=== PATIENT | female | born 1940 | race Caucasian/White ===

== ENCOUNTER 2016-08-20 15:04 | Outpatient (RCR) | payer MEDICARE ==
--- OUTSIDE RECORDS SUMMARY | 2016-05-27 14:40 | XMS REPORT | Continuity of Care Document ---
Author Author [facility] Organization [facility] Address Unknown Phone Unavailable Care Team Providers Care Financial Services Manager Name Role Phone RITA WALTON MD PCP Insurance Providers Payer Name Policy Number Subscriber Name Relationship Wps Medicare [id number] Gracia Dickerson 18 Self / Same As Patient Medicaid [place] [id number] Gracia Dickerson 16 Self / Same As Patient Advance Directives Directive Response Recorded Date/Time Advance Directives No 10/17/15 2:02pm Health Care Power of Senior Mortgage Loan Processor No 10/17/15 2:02pm Organ Donor No 10/17/15 2:02pm Problems Active Problems Medical Problem Onset Date Status CHF (congestive heart failure) Unknown Acute CHF (congestive heart failure) Unknown Acute CRF (chronic renal failure) Unknown Acute Hypoglycemia associated with diabetes Unknown Acute Urinary tract infection Unknown Acute Medications Current Home Medications Medication Dose Units Route Directions Days/Qty Instructions Start Date Darbepoetin Ramos In Polysorbat 40 Mcg/1 Ml 40 Mcg Injection Every 2 Weeks 06/29/14 Ferrous Sulfate 325 Mg 325 Mg Oral Bedtime 06/29/14 Glimepiride 4 Mg 4 Mg Oral Daily 06/29/14 Insulin Glargine 300 Unit/3 Ml 20 Units Sub-Q Bedtime 06/29/14 Multivitamins 1 Tab 1 Tab Oral Daily 06/29/14 Cholecalciferol (Vitamin D3) 2,000 Unit 2,000 Unit Oral Bedtime 07/31 Calcium Carbonate 200 Mg 200-400 Mg Oral Daily as needed for Stomach Upset TAKES 1-2 TABLETS 06/29/14 Sodium Bicarbonate 325 Mg 325 Mg Oral Twice A Day as needed for Indigestion 06/29/14 Cyanocobalamin 1,000 Mcg 1,000 Mcg Oral Bedtime 11/22/14 Pyridoxine Hcl 100 Mg 100 Mg Oral Bedtime 11/22/14 Insulin Aspart 100 Unit/1 Ml 8 Units Sub-Q Am & Noon 11/22/14 Lovastatin (Mevacor) 40 Mg 40 Mg Oral Bedtime 11/22/14 Levothyroxine Sodium 150 Mcg 150 Mcg Oral Daily 11/22/14 Clopidogrel Bisulfate 75 Mg 75 Mg Oral Daily 30 11/24/14 Aspirin 81 Mg 81 Mg Oral Daily 30 11/24/14 Carvedilol 3.125 Mg 3.125 Mg Oral Twice A Day 60 11/24/14 Ciprofloxacin Hcl 500 Mg 500 Mg Oral Twice A Day 10 10/17/15 Past Home Medications Medication Directions Ordered Status Carvedilol (Coreg) 3.125 Mg Tablet, 3.125 Mg Oral Twice A Day 06/29/14 Discontinued Enalapril Maleate 2.5 Mg Tablet, 2.5 Mg Oral Daily 06/29/14 Discontinued Atenolol 50 Mg Tablet, 50 Mg Oral Daily 06/29/14 Discontinued Hum Insulin Nph/Reg Insulin Hm 100 Unit/1 Ml Insuln.pen, 5 Unit Sub-Q Twice Daily Before Meals 06/29/14 Discontinued Levothyroxine Sodium 100 Mcg Tablet, 100 Mcg Oral Bedtime 06/29/14 Discontinued Lovastatin (Mevacor) 20 Mg Tablet, 20 Mg Oral Bedtime 06/29/14 Discontinued Amlodipine Besylate (Norvasc 2.5 Mg) 2.5 Mg Tablet, 2.5 Mg Oral Twice A Day 06/29/14 Discontinued [Vitamin B12] , 1 Tab Oral Bedtime 06/29/14 Discontinued [Vitamin B6] , 1 Tab Oral Bedtime 06/29/14 Discontinued [Sodium Bicarbonate] , 250 Mg Oral Twice A Day 06/29/14 Discontinued Social History Social History Problem Response Recorded Date/Time Alcohol Use Denies Use 10/17/2015 2:02pm Recreational Drug Use No 10/17/2015 2:02pm Recent Foreign Travel N [place] 12/18/2015 1:08pm Sexually Transmitted Disease No 10/17/2015 2:02pm Hospital Discharge Instructions No hospital discharge instructions. Plan of Care Prescriptions See Medication Section Functional Status No functional status results. Allergies, Adverse Reactions, Alerts No known allergies. Immunizations No immunization records. Vital Signs No known vital signs results. Results Laboratory Results Test Name Result Units Flags Reference Collection Date/Time Result Date/ Time Comments White Blood Count 5.7 10^3/uL 4.3-11.0 03/04/2016 11:03/04/2016 11 :11am Red Blood Count 4.05 10^6/uL L 4.35-5.85 03/04/2016 11:03/04/2016 11 :11am Hemoglobin 11.6 G/DL 11.5-16.0 03/04/2016 11:03/04/2016 11:11am Hematocrit 35 % 35-52 03/04/2016 11:03/04/2016 11:11am Mean Corpuscular Volume 87 FL 80-99 03/04/2016 11:03/04/2016 11: 11am Mean Corpuscular Hemoglobin 29 PG 25-34 03/04/2016 11:03/04/2016 11:11am Mean Corpuscular Hemoglobin Concent 33 G/DL 32-36 03/04/2016 11: 11:11am Red Cell Distribution Width 14.6 % H 10.0-14.5 03/04/2016 11:2015 11:11am Platelet Count 219 10^3/uL 130-400 03/04/2016 11:03/04/2016 11: 11am Mean Platelet Volume 10.1 FL 7.4-10.4 03/04/2016 11:03/04/2016 11: 11am Neutrophils (%) (Auto) 65 % 42-75 03/04/2016 11:03/04/2016 11: 11am Lymphocytes (%) (Auto) 21 % 12-44 03/04/2016 11:03/04/2016 11: 11am Monocytes (%) (Auto) 11 % 0-12 03/04/2016 11:03/04/2016 11:11am Eosinophils (%) (Auto) 2 % 0-10 03/04/2016 11:03/04/2016 11:11am Basophils (%) (Auto) 1 % 0-10 03/04/2016 11:03/04/2016 11:11am Neutrophils # (Auto) 3.7 X 10^3 1.8-7.8 03/04/2016 11:03/04/2016 11:11am Lymphocytes # (Auto) 1.2 X 10^3 1.0-4.0 03/04/2016 11:03/04/2016 11:11am Monocytes # (Auto) 0.6 X 10^3 0.0-1.0 03/04/2016 11:03/04/2016 11: 11am Eosinophils # (Auto) 0.1 10^3/uL 0.0-0.3 03/04/2016 11:03/04/2016 11:11am Basophils # (Auto) 0.1 10^3/uL 0.0-0.1 03/04/2016 11:03/04/2016 11 :11am Sodium Level 134 MMOL/L L 135-145 01/29/2016 1:03pm 01/29/2016 1:48pm Potassium Level 4.9 MMOL/L 3.6-5.0 01/29/2016 1:03pm 01/29/2016 1:48pm Chloride Level 106 MMOL/L 98-107 01/29/2016 1:03pm 01/29/2016 1:48pm Carbon Dioxide Level 17 MMOL/L L 21-32 01/29/2016 1:03pm 01/29/2016 1: 48pm Anion Gap 11 MMOL/L 5-14 01/29/2016 1:03pm 01/29/2016 1:48pm Blood Urea Nitrogen 29 MG/DL H 7-18 01/29/2016 1:03pm 01/29/2016 1:48pm Creatinine 2.21 MG/DL H 0.60-1.30 01/29/2016 1:03pm 01/29/2016 1:48pm BUN/Creatinine Ratio 01/29/2016 1:03pm 01/29/2016 1:48pm Estimat Glomerular Filtration Rate 22 01/29/2016 1:03pm 01/29/2016 1:48pm GFR INTERPRETIVE DATA UNITS FOR ESTIMATED GFR (eGFR): mL/min/1.73 M2 REFERENCE RANGE FOR ESTIMATED GFR (eGFR) eGFR NORMAL eGFR >60 MODERATELY DECREASED eGFR 30-59 SEVERLY DECREASED eGFR 15-29 KIDNEY FAILURE <15 (OR DIALYSIS) Glucose Level 449 MG/DL CH 70-105 01/29/2016 1:03pm 01/29/2016 1:48pm RESULTS CALLED TO [facility]UM[facility] AT 1348. RESULTS READ BACK: YES. Calcium Level 8.6 MG/DL 8.5-10.1 01/29/2016 1:03pm 01/29/2016 1:48pm Total Bilirubin 0.4 MG/DL 0.1-1.0 01/29/2016 1:03pm 01/29/2016 1:48pm Alkaline Phosphatase 108 U/L 40-136 01/29/2016 1:03pm 01/29/2016 1: 48pm Aspartate Amino Transf (AST/SGOT) 12 U/L 5-34 01/29/2016 1:03pm 2015 1:48pm Alanine Aminotransferase (ALT/SGPT) < 6 U/L 0-55 01/29/2016 1:03pm 1:48pm Total Protein 6.8 G/DL 6.4-8.2 01/29/2016 1:03pm 01/29/2016 1:48pm Albumin 3.8 G/DL 3.2-4.5 01/29/2016 1:03pm 01/29/2016 1:48pm Thyroid Stimulating Hormone (TSH) 17.69 UIU/ML H 0.35-4.94 01/29/2016 1: 03pm 01/29/2016 2:06pm Procedures Procedure Status Date Provider(s) Color Doppler echocardiography Active 03/05/16 LONNIE YATES Encounters Encounter Location Arrival/Admit Date Discharge/Depart Date Attending Provider Discharged Recurring [facility] 03/05/16 8:43am 11:59pm MARIO HODGE MD Registered Clinic [facility] 03/05/16 7:41am LONNIE DUDLEY
[2016-05-27 15:06] LABS: BASOPHILS # (AUTO) 0.1 10^3/uL (0.0-0.1); BASOPHILS % (AUTO) 1 % (0-10); EOSINOPHILS # (AUTO) 0.1 10^3/uL (0.0-0.3); EOSINOPHILS % (AUTO) 3 % (0-10); LYMPHOCYTES # (AUTO) 1.2 X 10^3 (1.0-4.0); LYMPHOCYTES % (AUTO) 27 % (12-44); MEAN CORPUSCULAR HGB CONC 32 G/DL (32-36); MEAN CORPUSCULAR VOLUME 90 FL (80-99); MEAN PLATELET VOLUME 10.2 FL (7.4-10.4); MONOCYTES # (AUTO) 0.7 X 10^3 (0.0-1.0); MONOCYTES % (AUTO) 15 % (0-12); NEUTROPHILS # (AUTO) 2.3 X 10^3 (1.8-7.8); NEUTROPHILS % (AUTO) 53 % (42-75); PLATELET COUNT 171 10^3/uL (130-400); RED BLOOD COUNT 3.09 10^6/uL (4.35-5.85); RED CELL DISTRIBUTION WIDTH 15.6 % (10.0-14.5); WHITE BLOOD COUNT 4.3 10^3/uL (4.3-11.0)
[2016-05-27 15:16] LABS: MEAN CORPUSCULAR HEMOGLOBIN 28 PG (25-34)
[2016-05-27 15:54] LABS: ALBUMIN 3.7 G/DL (3.2-4.5); BILIRUBIN,TOTAL 0.3 MG/DL (0.1-1.0); CALCIUM 8.9 MG/DL (8.5-10.1); CREATININE SERUM 2.36 MG/DL (0.60-1.30); POTASSIUM 4.9 MMOL/L (3.6-5.0); TOTAL PROTEIN 6.9 G/DL (6.4-8.2)
[2016-05-27 16:15] LABS: THYROID STIMULATING HORMONE 0.21 UIU/ML (0.35-4.94)
[2016-06-10 16:12] LABS: BASOPHILS % (AUTO) 1 % (0-10); EOSINOPHILS # (AUTO) 0.2 10^3/uL (0.0-0.3); EOSINOPHILS % (AUTO) 5 % (0-10); LYMPHOCYTES # (AUTO) 1.1 X 10^3 (1.0-4.0); LYMPHOCYTES % (AUTO) 25 % (12-44); MEAN CORPUSCULAR HEMOGLOBIN 28 PG (25-34); MEAN CORPUSCULAR HGB CONC 32 G/DL (32-36); MEAN CORPUSCULAR VOLUME 89 FL (80-99); MEAN PLATELET VOLUME 9.8 FL (7.4-10.4); MONOCYTES # (AUTO) 0.5 X 10^3 (0.0-1.0); MONOCYTES % (AUTO) 12 % (0-12); NEUTROPHILS # (AUTO) 2.5 X 10^3 (1.8-7.8); NEUTROPHILS % (AUTO) 57 % (42-75); PLATELET COUNT 218 10^3/uL (130-400); RED BLOOD COUNT 3.17 10^6/uL (4.35-5.85); WHITE BLOOD COUNT 4.3 10^3/uL (4.3-11.0)
[2016-06-25 15:30] LABS: BASOPHILS # (AUTO) 0.1 10^3/uL (0.0-0.1); BASOPHILS % (AUTO) 2 % (0-10); EOSINOPHILS # (AUTO) 0.2 10^3/uL (0.0-0.3); EOSINOPHILS % (AUTO) 4 % (0-10); LYMPHOCYTES # (AUTO) 1.3 X 10^3 (1.0-4.0); LYMPHOCYTES % (AUTO) 28 % (12-44); MEAN CORPUSCULAR HEMOGLOBIN 28 PG (25-34); MEAN CORPUSCULAR HGB CONC 31 G/DL (32-36); MEAN CORPUSCULAR VOLUME 90 FL (80-99); MONOCYTES # (AUTO) 0.7 X 10^3 (0.0-1.0); MONOCYTES % (AUTO) 15 % (0-12); NEUTROPHILS # (AUTO) 2.5 X 10^3 (1.8-7.8); NEUTROPHILS % (AUTO) 52 % (42-75); PLATELET COUNT 158 10^3/uL (130-400); RED BLOOD COUNT 2.93 10^6/uL (4.35-5.85); RED CELL DISTRIBUTION WIDTH 14.5 % (10.0-14.5); WHITE BLOOD COUNT 4.8 10^3/uL (4.3-11.0)
[2016-06-25 16:07] LABS: ALBUMIN 3.7 G/DL (3.2-4.5); BILIRUBIN,TOTAL 0.3 MG/DL (0.1-1.0); CALCIUM 9.1 MG/DL (8.5-10.1); CREATININE SERUM 2.14 MG/DL (0.60-1.30)
[2016-06-25 16:14] LABS: POTASSIUM 6.8 MMOL/L (3.6-5.0)
[2016-06-25 16:26] LABS: THYROID STIMULATING HORMONE 0.06 UIU/ML (0.35-4.94)
[2016-06-25 17:06] LABS: %SAT TOTAL IRON BINDING CAPIC 12 % (15-50); TIBC 228 ug/dL (280-380)
[2016-06-26 08:00] LABS: FERRITIN 289 ng/mL (15-150); UIBC 200 ug/dL (55-450)
[2016-07-09 15:59] LABS: BASOPHILS % (AUTO) 1 % (0-10); EOSINOPHILS # (AUTO) 0.2 10^3/uL (0.0-0.3); EOSINOPHILS % (AUTO) 3 % (0-10); LYMPHOCYTES # (AUTO) 1.1 X 10^3 (1.0-4.0); LYMPHOCYTES % (AUTO) 26 % (12-44); MEAN CORPUSCULAR HEMOGLOBIN 28 PG (25-34); MEAN CORPUSCULAR HGB CONC 31 G/DL (32-36); MEAN CORPUSCULAR VOLUME 89 FL (80-99); MONOCYTES # (AUTO) 0.5 X 10^3 (0.0-1.0); MONOCYTES % (AUTO) 11 % (0-12); NEUTROPHILS # (AUTO) 2.6 X 10^3 (1.8-7.8); NEUTROPHILS % (AUTO) 59 % (42-75); PLATELET COUNT 176 10^3/uL (130-400); RED BLOOD COUNT 2.93 10^6/uL (4.35-5.85); WHITE BLOOD COUNT 4.5 10^3/uL (4.3-11.0)
[2016-07-23 14:59] LABS: BASOPHILS # (AUTO) 0.1 10^3/uL (0.0-0.1); BASOPHILS % (AUTO) 1 % (0-10); EOSINOPHILS # (AUTO) 0.1 10^3/uL (0.0-0.3); EOSINOPHILS % (AUTO) 3 % (0-10); LYMPHOCYTES # (AUTO) 0.9 X 10^3 (1.0-4.0); LYMPHOCYTES % (AUTO) 21 % (12-44); MEAN CORPUSCULAR HEMOGLOBIN 27 PG (25-34); MEAN CORPUSCULAR HGB CONC 31 G/DL (32-36); MEAN CORPUSCULAR VOLUME 89 FL (80-99); MEAN PLATELET VOLUME 8.9 FL (7.4-10.4); MONOCYTES # (AUTO) 0.6 X 10^3 (0.0-1.0); MONOCYTES % (AUTO) 14 % (0-12); NEUTROPHILS # (AUTO) 2.6 X 10^3 (1.8-7.8); NEUTROPHILS % (AUTO) 61 % (42-75); PLATELET COUNT 162 10^3/uL (130-400); RED CELL DISTRIBUTION WIDTH 14.2 % (10.0-14.5); WHITE BLOOD COUNT 4.2 10^3/uL (4.3-11.0)
[2016-07-23 15:47] LABS: ALBUMIN 3.8 G/DL (3.2-4.5); BILIRUBIN,TOTAL 0.3 MG/DL (0.1-1.0); CALCIUM 8.8 MG/DL (8.5-10.1); CREATININE SERUM 2.34 MG/DL (0.60-1.30); POTASSIUM 4.7 MMOL/L (3.6-5.0); TOTAL PROTEIN 7.1 G/DL (6.4-8.2)
[2016-07-23 16:07] LABS: THYROID STIMULATING HORMONE 0.03 UIU/ML (0.35-4.94)
[2016-07-23 16:52] LABS: %SAT TOTAL IRON BINDING CAPIC 9 % (15-50); TIBC 249 ug/dL (280-380)
[2016-07-24 08:14] LABS: FERRITIN 253 ng/mL (15-150); UIBC 226 ug/dL (55-450)
[2016-08-06 16:23] LABS: BASOPHILS # (AUTO) 0.1 10^3/uL (0.0-0.1); BASOPHILS % (AUTO) 1 % (0-10); EOSINOPHILS # (AUTO) 0.2 10^3/uL (0.0-0.3); EOSINOPHILS % (AUTO) 4 % (0-10); LYMPHOCYTES # (AUTO) 1.2 X 10^3 (1.0-4.0); LYMPHOCYTES % (AUTO) 25 % (12-44); MEAN CORPUSCULAR HEMOGLOBIN 27 PG (25-34); MEAN CORPUSCULAR HGB CONC 31 G/DL (32-36); MEAN CORPUSCULAR VOLUME 88 FL (80-99); MEAN PLATELET VOLUME 9.1 FL (7.4-10.4); MONOCYTES # (AUTO) 0.7 X 10^3 (0.0-1.0); MONOCYTES % (AUTO) 14 % (0-12); NEUTROPHILS # (AUTO) 2.7 X 10^3 (1.8-7.8); NEUTROPHILS % (AUTO) 56 % (42-75); PLATELET COUNT 173 10^3/uL (130-400); RED BLOOD COUNT 3.24 10^6/uL (4.35-5.85); RED CELL DISTRIBUTION WIDTH 14.9 % (10.0-14.5); WHITE BLOOD COUNT 4.7 10^3/uL (4.3-11.0)
[~2016-08-20 15:04] MED LIST: ACET-77 PO; ACET-93 PO; AMLO2.5T PO; ASPI-587 PO; ASPI-983 PO; ATEN50TA PO; CALC500T7 PO; CARV3.122 PO; CARV3.12T PO; CARV6.252 PO; CEFU500T PO; CHOL200035 PO; CIPR500T4 PO; CLOP75TA69 PO; CLPD75T PO; CYAN10006 PO; CYAN500T2 PO; DARB40VI IJ; DARBEPOETIN 40 MCG/1 ML ARANESP IJ SCH; DARBEPOETIN 40 MCG/ML (ARANESP) 1 ML VIAL SC SCH; DARBEPOETIN 60 MCG/ML ARANESP (CANCER CTR) INJ SCH; ENAL2.5T PO; FERR-57 PO; FLUC100T6 PO; GLIM4TAB PO; GNT.3OO351 OP; HUM100IN4 SQ; INSU100I10 SQ; INSU100I14 SQ; LEVO125T6 PO; LEVO150T6 PO; LOSA100T28 PO; LOVA20TA2 PO; LOVA40TA2 PO; LVT.15T PO; MULT-608 PO; MUPI15CR11 TP; MUPI22OI2 TOP; OMG1KC PO; PYRI100T2 PO; ROSU40TA PO; SODIUM BICARBONATE PO; SULF1TAB35 PO; VITAMIN B12 PO; VITAMIN B6 PO; [UNRECOGNIZED DRUG - CODE] PO; [UNRECOGNIZED DRUG - CODE] PO
[2016-08-20 15:26] LABS: BASOPHILS # (AUTO) 0.1 10^3/uL (0.0-0.1); BASOPHILS % (AUTO) 1 % (0-10); EOSINOPHILS # (AUTO) 0.2 10^3/uL (0.0-0.3); EOSINOPHILS % (AUTO) 4 % (0-10); LYMPHOCYTES # (AUTO) 1.1 X 10^3 (1.0-4.0); LYMPHOCYTES % (AUTO) 27 % (12-44); MEAN CORPUSCULAR HEMOGLOBIN 27 PG (25-34); MEAN CORPUSCULAR HGB CONC 31 G/DL (32-36); MEAN CORPUSCULAR VOLUME 87 FL (80-99); MEAN PLATELET VOLUME 9.3 FL (7.4-10.4); MONOCYTES # (AUTO) 0.6 X 10^3 (0.0-1.0); MONOCYTES % (AUTO) 13 % (0-12); NEUTROPHILS # (AUTO) 2.3 X 10^3 (1.8-7.8); NEUTROPHILS % (AUTO) 56 % (42-75); PLATELET COUNT 135 10^3/uL (130-400); RED BLOOD COUNT 3.37 10^6/uL (4.35-5.85); RED CELL DISTRIBUTION WIDTH 15.1 % (10.0-14.5); WHITE BLOOD COUNT 4.2 10^3/uL (4.3-11.0)
== END 2016-08-25 | disposition home or self-care (01) ==
LOC: ONC 15:04
PROVIDERS: ATTEND Internal Medicine Hematology & Oncology
DX: N18.9 Chronic kidney disease, unspecified (principal); D63.1 Anemia in chronic kidney disease; E03.9 Hypothyroidism, unspecified; Z79.899 Other long term (current) drug therapy
CPT/HCPCS: 36415; 80053; 82728; 83540; 84132; 84443; 85025; 96372; 99213

== ENCOUNTER 2016-11-26 14:45 | Outpatient (RCR) | payer MEDICARE ==
--- OUTSIDE RECORDS SUMMARY | 2016-09-03 15:13 | XMS REPORT | Continuity of Care Document ---
Author Author [facility] Organization [facility] Address Unknown Phone Unavailable Care Team Providers Care Armor Reconnaissance Vehicle Driver Name Role Phone RITA WALTON MD PCP Insurance Providers Payer Name Policy Number Subscriber Name Relationship Wps Medicare [id number] Gracia Dickerson 16 Self / Same As Patient Medicaid [place] [id number] Gracia Dickerson 16 Self / Same As Patient Advance Directives Directive Response Recorded Date/Time Advance Directives No 10/17/15 2:02pm Health Care Power of Nut Sheller Machine Operator No 10/17/15 2:02pm Organ Donor No 10/17/15 [...] Discharge/Depart Date Attending Provider Discharged Recurring [facility] 03/05/16 8:43am 11:59pm MARIO HODGE MD Registered Clinic [facility] 03/05/16 7:41am LONNIE DUDLEY
[2016-09-03 15:16] LABS: BASOPHILS # (AUTO) 0.1 10^3/uL (0.0-0.1); BASOPHILS % (AUTO) 1 % (0-10); EOSINOPHILS # (AUTO) 0.2 10^3/uL (0.0-0.3); EOSINOPHILS % (AUTO) 3 % (0-10); LYMPHOCYTES # (AUTO) 1.1 X 10^3 (1.0-4.0); LYMPHOCYTES % (AUTO) 22 % (12-44); MEAN CORPUSCULAR HEMOGLOBIN 27 PG (25-34); MEAN CORPUSCULAR HGB CONC 31 G/DL (32-36); MEAN CORPUSCULAR VOLUME 86 FL (80-99); MEAN PLATELET VOLUME 9.1 FL (7.4-10.4); MONOCYTES # (AUTO) 0.6 X 10^3 (0.0-1.0); MONOCYTES % (AUTO) 13 % (0-12); NEUTROPHILS # (AUTO) 2.9 X 10^3 (1.8-7.8); NEUTROPHILS % (AUTO) 60 % (42-75); PLATELET COUNT 162 10^3/uL (130-400); RED BLOOD COUNT 3.54 10^6/uL (4.35-5.85); RED CELL DISTRIBUTION WIDTH 15.4 % (10.0-14.5); WHITE BLOOD COUNT 4.8 10^3/uL (4.3-11.0)
[2016-09-17 14:58] LABS: BASOPHILS % (AUTO) 1 % (0-10); EOSINOPHILS # (AUTO) 0.2 10^3/uL (0.0-0.3); EOSINOPHILS % (AUTO) 4 % (0-10); LYMPHOCYTES # (AUTO) 1.1 X 10^3 (1.0-4.0); LYMPHOCYTES % (AUTO) 27 % (12-44); MEAN CORPUSCULAR HEMOGLOBIN 26 PG (25-34); MEAN CORPUSCULAR HGB CONC 31 G/DL (32-36); MEAN CORPUSCULAR VOLUME 84 FL (80-99); MONOCYTES # (AUTO) 0.5 X 10^3 (0.0-1.0); MONOCYTES % (AUTO) 13 % (0-12); NEUTROPHILS # (AUTO) 2.2 X 10^3 (1.8-7.8); NEUTROPHILS % (AUTO) 56 % (42-75); PLATELET COUNT 185 10^3/uL (130-400); RED BLOOD COUNT 3.45 10^6/uL (4.35-5.85); RED CELL DISTRIBUTION WIDTH 15.4 % (10.0-14.5); WHITE BLOOD COUNT 3.9 10^3/uL (4.3-11.0)
[2016-09-17 15:35] LABS: ALBUMIN 3.7 G/DL (3.2-4.5); BILIRUBIN,TOTAL 0.2 MG/DL (0.1-1.0); CALCIUM 8.6 MG/DL (8.5-10.1); CREATININE SERUM 2.28 MG/DL (0.60-1.30); POTASSIUM 4.3 MMOL/L (3.6-5.0); TOTAL PROTEIN 7.1 G/DL (6.4-8.2)
[2016-09-17 15:55] LABS: THYROID STIMULATING HORMONE 1.47 UIU/ML (0.35-4.94)
[2016-10-01 15:25] LABS: BASOPHILS % (AUTO) 1 % (0-10); EOSINOPHILS # (AUTO) 0.2 10^3/uL (0.0-0.3); EOSINOPHILS % (AUTO) 3 % (0-10); LYMPHOCYTES # (AUTO) 0.7 X 10^3 (1.0-4.0); LYMPHOCYTES % (AUTO) 16 % (12-44); MEAN CORPUSCULAR HEMOGLOBIN 26 PG (25-34); MEAN CORPUSCULAR HGB CONC 31 G/DL (32-36); MEAN CORPUSCULAR VOLUME 83 FL (80-99); MEAN PLATELET VOLUME 9.5 FL (7.4-10.4); MONOCYTES # (AUTO) 0.6 X 10^3 (0.0-1.0); MONOCYTES % (AUTO) 12 % (0-12); NEUTROPHILS % (AUTO) 67 % (42-75); PLATELET COUNT 175 10^3/uL (130-400); RED BLOOD COUNT 3.65 10^6/uL (4.35-5.85); RED CELL DISTRIBUTION WIDTH 16.5 % (10.0-14.5); WHITE BLOOD COUNT 4.5 10^3/uL (4.3-11.0)
[2016-10-01 15:53] LABS: ALBUMIN 3.8 G/DL (3.2-4.5); BILIRUBIN,TOTAL 0.4 MG/DL (0.1-1.0); CALCIUM 8.5 MG/DL (8.5-10.1); CREATININE SERUM 2.26 MG/DL (0.60-1.30); POTASSIUM 4.5 MMOL/L (3.6-5.0); TOTAL PROTEIN 7.3 G/DL (6.4-8.2)
[2016-10-16 15:33] LABS: BASOPHILS % (AUTO) 1 % (0-10); EOSINOPHILS # (AUTO) 0.2 10^3/uL (0.0-0.3); EOSINOPHILS % (AUTO) 5 % (0-10); LYMPHOCYTES # (AUTO) 0.8 X 10^3 (1.0-4.0); LYMPHOCYTES % (AUTO) 20 % (12-44); MEAN CORPUSCULAR HEMOGLOBIN 25 PG (25-34); MEAN CORPUSCULAR HGB CONC 30 G/DL (32-36); MEAN CORPUSCULAR VOLUME 83 FL (80-99); MONOCYTES # (AUTO) 0.6 X 10^3 (0.0-1.0); MONOCYTES % (AUTO) 14 % (0-12); NEUTROPHILS # (AUTO) 2.5 X 10^3 (1.8-7.8); NEUTROPHILS % (AUTO) 61 % (42-75); PLATELET COUNT 157 10^3/uL (130-400); RED CELL DISTRIBUTION WIDTH 16.7 % (10.0-14.5); WHITE BLOOD COUNT 4.1 10^3/uL (4.3-11.0)
[2016-10-31 15:30] LABS: BASOPHILS % (AUTO) 1 % (0-10); EOSINOPHILS # (AUTO) 0.1 10^3/uL (0.0-0.3); EOSINOPHILS % (AUTO) 1 % (0-10); LYMPHOCYTES # (AUTO) 0.8 X 10^3 (1.0-4.0); LYMPHOCYTES % (AUTO) 16 % (12-44); MEAN CORPUSCULAR HEMOGLOBIN 25 PG (25-34); MEAN CORPUSCULAR HGB CONC 31 G/DL (32-36); MEAN CORPUSCULAR VOLUME 81 FL (80-99); MEAN PLATELET VOLUME 9.6 FL (7.4-10.4); MONOCYTES # (AUTO) 0.6 X 10^3 (0.0-1.0); MONOCYTES % (AUTO) 12 % (0-12); NEUTROPHILS # (AUTO) 3.5 X 10^3 (1.8-7.8); NEUTROPHILS % (AUTO) 71 % (42-75); PLATELET COUNT 154 10^3/uL (130-400); RED BLOOD COUNT 3.63 10^6/uL (4.35-5.85); RED CELL DISTRIBUTION WIDTH 17.3 % (10.0-14.5); WHITE BLOOD COUNT 4.9 10^3/uL (4.3-11.0)
[2016-11-12 15:28] LABS: BASOPHILS % (AUTO) 1 % (0-10); EOSINOPHILS # (AUTO) 0.1 10^3/uL (0.0-0.3); EOSINOPHILS % (AUTO) 3 % (0-10); LYMPHOCYTES # (AUTO) 0.8 X 10^3 (1.0-4.0); LYMPHOCYTES % (AUTO) 17 % (12-44); MEAN CORPUSCULAR HEMOGLOBIN 24 PG (25-34); MEAN CORPUSCULAR HGB CONC 30 G/DL (32-36); MEAN CORPUSCULAR VOLUME 81 FL (80-99); MONOCYTES # (AUTO) 0.6 X 10^3 (0.0-1.0); MONOCYTES % (AUTO) 14 % (0-12); NEUTROPHILS # (AUTO) 3.1 X 10^3 (1.8-7.8); NEUTROPHILS % (AUTO) 66 % (42-75); PLATELET COUNT 182 10^3/uL (130-400); RED BLOOD COUNT 3.73 10^6/uL (4.35-5.85); RED CELL DISTRIBUTION WIDTH 17.7 % (10.0-14.5); WHITE BLOOD COUNT 4.8 10^3/uL (4.3-11.0)
[~2016-11-26 14:45] MED LIST changes: +DARBEPOETIN 40 MCG/ML (ARANESP) 1 ML VIAL SC SCH; +DARBEPOETIN 60 MCG/ML ARANESP (CANCER CTR) INJ SCH
[2016-11-26 15:06] LABS: BASOPHILS # (AUTO) 0.1 10^3/uL (0.0-0.1); BASOPHILS % (AUTO) 1 % (0-10); EOSINOPHILS # (AUTO) 0.2 10^3/uL (0.0-0.3); EOSINOPHILS % (AUTO) 5 % (0-10); LYMPHOCYTES # (AUTO) 0.8 X 10^3 (1.0-4.0); LYMPHOCYTES % (AUTO) 18 % (12-44); MEAN CORPUSCULAR HEMOGLOBIN 24 PG (25-34); MEAN CORPUSCULAR HGB CONC 29 G/DL (32-36); MEAN CORPUSCULAR VOLUME 81 FL (80-99); MEAN PLATELET VOLUME 9.9 FL (7.4-10.4); MONOCYTES # (AUTO) 0.5 X 10^3 (0.0-1.0); MONOCYTES % (AUTO) 12 % (0-12); NEUTROPHILS # (AUTO) 2.8 X 10^3 (1.8-7.8); NEUTROPHILS % (AUTO) 64 % (42-75); PLATELET COUNT 150 10^3/uL (130-400); RED BLOOD COUNT 3.87 10^6/uL (4.35-5.85); RED CELL DISTRIBUTION WIDTH 18.2 % (10.0-14.5); WHITE BLOOD COUNT 4.4 10^3/uL (4.3-11.0)
[2016-11-26 16:17] LABS: ALBUMIN 3.7 G/DL (3.2-4.5); BILIRUBIN,TOTAL 0.4 MG/DL (0.1-1.0); CALCIUM 8.6 MG/DL (8.5-10.1); CREATININE SERUM 2.33 MG/DL (0.60-1.30); POTASSIUM 4.2 MMOL/L (3.6-5.0); TOTAL PROTEIN 7.2 G/DL (6.4-8.2)
[2016-11-26 16:38] LABS: THYROID STIMULATING HORMONE 1.91 UIU/ML (0.35-4.94)
== END 2016-12-02 | disposition home or self-care (01) ==
LOC: ONC 14:45
PROVIDERS: ATTEND Internal Medicine Hematology & Oncology
DX: N18.9 Chronic kidney disease, unspecified (principal); D63.1 Anemia in chronic kidney disease; E03.9 Hypothyroidism, unspecified; Z79.899 Other long term (current) drug therapy
CPT/HCPCS: 36415; 80053; 82728; 82962; 83540; 84443; 85025; 96372; 99213

== ENCOUNTER → 2016-11-26 | Outpatient (CLI) | payer MEDICARE ==
[~2016-11-26] MED LIST changes: -DARBEPOETIN 40 MCG/1 ML ARANESP IJ SCH; -DARBEPOETIN 40 MCG/ML (ARANESP) 1 ML VIAL SC SCH; -DARBEPOETIN 60 MCG/ML ARANESP (CANCER CTR) INJ SCH
[2016-11-26 15:59] LABS: BILIRUBIN,URINE NEGATIVE (NEGATIVE); KETONES,URINE NEGATIVE (NEGATIVE); LEUKOCYTE ESTERASE ,URINE 2+ (NEGATIVE); NITRITE,URINE NEGATIVE (NEGATIVE); PH,URINE 6.5 (5-9); PROTEIN,URINE 3+ (NEGATIVE); UROBILINOGEN,URINE NORMAL (NORMAL)
[2016-11-26 16:19] LABS: PROTEIN/CREATININE RATIO 1.13
[2016-11-26 16:23] LABS: WBC,URINE 0-2 /HPF
[2016-11-26 16:51] LABS: ALBUMIN 3.7 G/DL (3.2-4.5); CALCIUM 8.5 MG/DL (8.5-10.1); CREATININE SERUM 2.35 MG/DL (0.60-1.30); PHOSPHORUS 3.8 MG/DL (2.3-4.7); POTASSIUM 4.2 MMOL/L (3.6-5.0)
== END ==
LOC: LAB 15:07
PROVIDERS: ATTEND Internal Medicine Nephrology
DX: D64.9 Anemia, unspecified (principal); I12.9 Hypertensive chronic kidney disease with stage 1 through stage 4 chronic kidney disease, or unspecified chronic kidney disease; N18.4 Chronic kidney disease, stage 4 (severe); E11.9 Type 2 diabetes mellitus without complications; I25.10 Atherosclerotic heart disease of native coronary artery without angina pectoris; R80.9 Proteinuria, unspecified
CPT/HCPCS: 36415; 80069; 81000; 82306; 82570; 84100; 84156

== ENCOUNTER 2017-03-04 14:20 | Outpatient (RCR) | payer MEDICARE, MEDICAID ==
[2016-12-10 16:05] LABS: BASOPHILS # (AUTO) 0.1 10^3/uL (0.0-0.1); BASOPHILS % (AUTO) 2 % (0-10); EOSINOPHILS # (AUTO) 0.1 10^3/uL (0.0-0.3); EOSINOPHILS % (AUTO) 4 % (0-10); LYMPHOCYTES # (AUTO) 0.9 X 10^3 (1.0-4.0); LYMPHOCYTES % (AUTO) 22 % (12-44); MEAN CORPUSCULAR HEMOGLOBIN 25 PG (25-34); MEAN CORPUSCULAR HGB CONC 30 G/DL (32-36); MEAN CORPUSCULAR VOLUME 81 FL (80-99); MEAN PLATELET VOLUME 10.5 FL (7.4-10.4); MONOCYTES # (AUTO) 0.6 X 10^3 (0.0-1.0); MONOCYTES % (AUTO) 14 % (0-12); NEUTROPHILS # (AUTO) 2.4 X 10^3 (1.8-7.8); NEUTROPHILS % (AUTO) 59 % (42-75); PLATELET COUNT 148 10^3/uL (130-400); RED CELL DISTRIBUTION WIDTH 18.5 % (10.0-14.5)
[2016-12-24 15:22] LABS: BASOPHILS % (AUTO) 1 % (0-10); EOSINOPHILS # (AUTO) 0.2 10^3/uL (0.0-0.3); EOSINOPHILS % (AUTO) 5 % (0-10); LYMPHOCYTES # (AUTO) 0.8 X 10^3 (1.0-4.0); LYMPHOCYTES % (AUTO) 18 % (12-44); MEAN CORPUSCULAR HEMOGLOBIN 24 PG (25-34); MEAN CORPUSCULAR HGB CONC 30 G/DL (32-36); MEAN CORPUSCULAR VOLUME 82 FL (80-99); MEAN PLATELET VOLUME 10.7 FL (7.4-10.4); MONOCYTES # (AUTO) 0.5 X 10^3 (0.0-1.0); MONOCYTES % (AUTO) 11 % (0-12); NEUTROPHILS # (AUTO) 2.7 X 10^3 (1.8-7.8); NEUTROPHILS % (AUTO) 65 % (42-75); PLATELET COUNT 123 10^3/uL (130-400); RED BLOOD COUNT 3.82 10^6/uL (4.35-5.85); RED CELL DISTRIBUTION WIDTH 18.8 % (10.0-14.5); WHITE BLOOD COUNT 4.2 10^3/uL (4.3-11.0)
[2017-01-08 15:53] LABS: BASOPHILS % (AUTO) 1 % (0-10); EOSINOPHILS # (AUTO) 0.1 10^3/uL (0.0-0.3); EOSINOPHILS % (AUTO) 3 % (0-10); LYMPHOCYTES # (AUTO) 0.7 X 10^3 (1.0-4.0); LYMPHOCYTES % (AUTO) 17 % (12-44); MEAN CORPUSCULAR HEMOGLOBIN 24 PG (25-34); MEAN CORPUSCULAR HGB CONC 30 G/DL (32-36); MEAN CORPUSCULAR VOLUME 81 FL (80-99); MEAN PLATELET VOLUME 10.4 FL (7.4-10.4); MONOCYTES # (AUTO) 0.5 X 10^3 (0.0-1.0); MONOCYTES % (AUTO) 13 % (0-12); NEUTROPHILS # (AUTO) 2.7 X 10^3 (1.8-7.8); NEUTROPHILS % (AUTO) 66 % (42-75); PLATELET COUNT 143 10^3/uL (130-400); RED BLOOD COUNT 3.97 10^6/uL (4.35-5.85); RED CELL DISTRIBUTION WIDTH 18.9 % (10.0-14.5); WHITE BLOOD COUNT 4.1 10^3/uL (4.3-11.0)
[2017-01-21 14:40] LABS: BASOPHILS % (AUTO) 1 % (0-10); EOSINOPHILS # (AUTO) 0.1 10^3/uL (0.0-0.3); EOSINOPHILS % (AUTO) 3 % (0-10); LYMPHOCYTES # (AUTO) 0.7 X 10^3 (1.0-4.0); LYMPHOCYTES % (AUTO) 19 % (12-44); MEAN CORPUSCULAR HEMOGLOBIN 24 PG (25-34); MEAN CORPUSCULAR HGB CONC 30 G/DL (32-36); MEAN CORPUSCULAR VOLUME 80 FL (80-99); MEAN PLATELET VOLUME 9.1 FL (7.4-10.4); MONOCYTES # (AUTO) 0.7 X 10^3 (0.0-1.0); MONOCYTES % (AUTO) 18 % (0-12); NEUTROPHILS # (AUTO) 2.3 X 10^3 (1.8-7.8); NEUTROPHILS % (AUTO) 59 % (42-75); PLATELET COUNT 153 10^3/uL (130-400); RED BLOOD COUNT 3.62 10^6/uL (4.35-5.85); RED CELL DISTRIBUTION WIDTH 19.5 % (10.0-14.5); WHITE BLOOD COUNT 3.9 10^3/uL (4.3-11.0)
[2017-01-21 15:10] LABS: ALBUMIN 3.5 G/DL (3.2-4.5); BILIRUBIN,TOTAL 0.5 MG/DL (0.1-1.0); CALCIUM 8.4 MG/DL (8.5-10.1); CREATININE SERUM 2.82 MG/DL (0.60-1.30); POTASSIUM 4.6 MMOL/L (3.6-5.0); TOTAL PROTEIN 7.2 G/DL (6.4-8.2)
[2017-01-22 07:24] LABS: TIBC 257 UG/DL (280-380)
[2017-01-22 07:25] LABS: UIBC 239 UG/DL
[2017-01-22 17:33] LABS: %SAT TOTAL IRON BINDING CAPIC 7 % (15-50)
[2017-02-04 14:28] LABS: BASOPHILS # (AUTO) 0.1 10^3/uL (0.0-0.1); BASOPHILS % (AUTO) 1 % (0-10); EOSINOPHILS # (AUTO) 0.2 10^3/uL (0.0-0.3); EOSINOPHILS % (AUTO) 3 % (0-10); LYMPHOCYTES % (AUTO) 20 % (12-44); MEAN CORPUSCULAR HEMOGLOBIN 24 PG (25-34); MEAN CORPUSCULAR HGB CONC 30 G/DL (32-36); MEAN CORPUSCULAR VOLUME 80 FL (80-99); MEAN PLATELET VOLUME 9.8 FL (7.4-10.4); MONOCYTES # (AUTO) 0.5 X 10^3 (0.0-1.0); MONOCYTES % (AUTO) 11 % (0-12); NEUTROPHILS # (AUTO) 3.2 X 10^3 (1.8-7.8); NEUTROPHILS % (AUTO) 65 % (42-75); PLATELET COUNT 143 10^3/uL (130-400); RED BLOOD COUNT 3.81 10^6/uL (4.35-5.85); RED CELL DISTRIBUTION WIDTH 19.1 % (10.0-14.5); WHITE BLOOD COUNT 4.9 10^3/uL (4.3-11.0)
[2017-02-19 14:12] LABS: BASOPHILS % (AUTO) 1 % (0-10); EOSINOPHILS # (AUTO) 0.2 10^3/uL (0.0-0.3); EOSINOPHILS % (AUTO) 4 % (0-10); LYMPHOCYTES # (AUTO) 0.8 X 10^3 (1.0-4.0); LYMPHOCYTES % (AUTO) 19 % (12-44); MEAN CORPUSCULAR HEMOGLOBIN 24 PG (25-34); MEAN CORPUSCULAR HGB CONC 30 G/DL (32-36); MEAN CORPUSCULAR VOLUME 81 FL (80-99); MEAN PLATELET VOLUME 9.4 FL (7.4-10.4); MONOCYTES # (AUTO) 0.5 X 10^3 (0.0-1.0); MONOCYTES % (AUTO) 12 % (0-12); NEUTROPHILS # (AUTO) 2.8 X 10^3 (1.8-7.8); NEUTROPHILS % (AUTO) 64 % (42-75); PLATELET COUNT 129 10^3/uL (130-400); RED BLOOD COUNT 3.84 10^6/uL (4.35-5.85); RED CELL DISTRIBUTION WIDTH 19.6 % (10.0-14.5); WHITE BLOOD COUNT 4.3 10^3/uL (4.3-11.0)
[~2017-03-04 14:20] MED LIST changes: +DARBEPOETIN 60 MCG/ML ARANESP (CANCER CTR) INJ SCH
[2017-03-04 15:02] LABS: BASOPHILS # (AUTO) 0.1 10^3/uL (0.0-0.1); BASOPHILS % (AUTO) 1 % (0-10); EOSINOPHILS # (AUTO) 0.2 10^3/uL (0.0-0.3); EOSINOPHILS % (AUTO) 5 % (0-10); LYMPHOCYTES # (AUTO) 0.9 X 10^3 (1.0-4.0); LYMPHOCYTES % (AUTO) 22 % (12-44); MEAN CORPUSCULAR HEMOGLOBIN 24 PG (25-34); MEAN CORPUSCULAR HGB CONC 30 G/DL (32-36); MEAN CORPUSCULAR VOLUME 80 FL (80-99); MEAN PLATELET VOLUME 9.7 FL (7.4-10.4); MONOCYTES # (AUTO) 0.5 X 10^3 (0.0-1.0); MONOCYTES % (AUTO) 11 % (0-12); NEUTROPHILS # (AUTO) 2.5 X 10^3 (1.8-7.8); NEUTROPHILS % (AUTO) 60 % (42-75); PLATELET COUNT 136 10^3/uL (130-400); RED BLOOD COUNT 4.17 10^6/uL (4.35-5.85); RED CELL DISTRIBUTION WIDTH 20.1 % (10.0-14.5); WHITE BLOOD COUNT 4.2 10^3/uL (4.3-11.0)
[2017-03-04 15:48] LABS: ALBUMIN 3.7 GM/DL (3.2-4.5); BILIRUBIN,TOTAL 0.4 MG/DL (0.1-1.0); CALCIUM 8.8 MG/DL (8.5-10.1); CREATININE SERUM 2.5 MG/DL (0.60-1.30); TOTAL PROTEIN 7.6 GM/DL (6.4-8.2)
[2017-03-04 16:41] LABS: THYROID STIMULATING HORMONE 1.11 UIU/ML (0.35-4.94)
== END 2017-03-10 | disposition home or self-care (01) ==
LOC: ONC 14:20
PROVIDERS: ATTEND Internal Medicine Hematology & Oncology
DX: N18.9 Chronic kidney disease, unspecified (principal); D63.1 Anemia in chronic kidney disease; E03.9 Hypothyroidism, unspecified; Z79.899 Other long term (current) drug therapy
CPT/HCPCS: 36415; 80053; 82728; 83540; 84443; 85025; 96372; 99213

== ENCOUNTER → 2017-03-04 | Outpatient (CLI) | payer MEDICARE, MEDICAID ==
[~2017-03-04] MED LIST changes: -DARBEPOETIN 40 MCG/ML (ARANESP) 1 ML VIAL SC SCH; -DARBEPOETIN 60 MCG/ML ARANESP (CANCER CTR) INJ SCH
[2017-03-04 15:45] LABS: PROTEIN/CREATININE RATIO 0.85
[2017-03-04 15:47] LABS: ALBUMIN 3.7 GM/DL (3.2-4.5); CALCIUM 8.8 MG/DL (8.5-10.1); CREATININE SERUM 2.51 MG/DL (0.60-1.30); PHOSPHORUS 5.1 MG/DL (2.3-4.7)
[2017-03-06 06:49] LABS: CALCIUM PARA THYROID HORMONE 8.7 mg/dL (8.5-10.5)
== END ==
LOC: LAB 14:23
PROVIDERS: ATTEND Internal Medicine Nephrology
DX: R80.9 Proteinuria, unspecified (principal); I12.9 Hypertensive chronic kidney disease with stage 1 through stage 4 chronic kidney disease, or unspecified chronic kidney disease; N18.4 Chronic kidney disease, stage 4 (severe); E11.9 Type 2 diabetes mellitus without complications; D64.9 Anemia, unspecified; I25.10 Atherosclerotic heart disease of native coronary artery without angina pectoris; E87.2 Acidosis; R60.9 Edema, unspecified
CPT/HCPCS: 36415; 80069; 82306; 82570; 83970; 84100; 84156

== ENCOUNTER → 2017-03-25 | Outpatient (CLI) | payer MEDICARE, MEDICAID ==
[~2017-03-25] MED LIST changes: -DARBEPOETIN 60 MCG/ML ARANESP (CANCER CTR) INJ SCH
== END ==
LOC: CARD 12:44
PROVIDERS: ATTEND Physician Assistant
DX: I25.10 Atherosclerotic heart disease of native coronary artery without angina pectoris (principal); I50.22 Chronic systolic (congestive) heart failure; E11.9 Type 2 diabetes mellitus without complications; E78.2 Mixed hyperlipidemia
CPT/HCPCS: 93306

== ENCOUNTER → 2017-04-15 | Outpatient (CLI) | payer MEDICARE, MEDICAID ==
[2017-04-15 15:58] LABS: BILIRUBIN,URINE NEGATIVE (NEGATIVE); KETONES,URINE NEGATIVE (NEGATIVE); LEUKOCYTE ESTERASE ,URINE 2+ (NEGATIVE); NITRITE,URINE NEGATIVE (NEGATIVE); PH,URINE 7 (5-9); PROTEIN,URINE 3+ (NEGATIVE); UROBILINOGEN,URINE NORMAL (NORMAL)
[2017-04-15 16:10] LABS: ALBUMIN 3.6 GM/DL (3.2-4.5); CALCIUM 8.4 MG/DL (8.5-10.1); CREATININE SERUM 2.44 MG/DL (0.60-1.30); PHOSPHORUS 4.6 MG/DL (2.3-4.7); POTASSIUM 4.5 MMOL/L (3.6-5.0)
[2017-04-15 16:16] LABS: PROTEIN/CREATININE RATIO 0.91
== END ==
LOC: LAB 15:33
PROVIDERS: ATTEND Internal Medicine Nephrology
DX: I12.9 Hypertensive chronic kidney disease with stage 1 through stage 4 chronic kidney disease, or unspecified chronic kidney disease (principal); N18.4 Chronic kidney disease, stage 4 (severe); D63.1 Anemia in chronic kidney disease; E11.29 Type 2 diabetes mellitus with other diabetic kidney complication; I25.10 Atherosclerotic heart disease of native coronary artery without angina pectoris; E87.2 Acidosis; R60.9 Edema, unspecified; R80.9 Proteinuria, unspecified
CPT/HCPCS: 36415; 80069; 81000; 82570; 84156; 87088

== ENCOUNTER → 2017-04-29 | Outpatient (CLI) | payer MEDICARE, MEDICAID | LOC: RAD 15:38 | PROVIDERS: ATTEND Nurse Practitioner Family | DX: Z12.31 Encounter for screening mammogram for malignant neoplasm of breast (principal) ==

== ENCOUNTER 2017-05-13 15:25 | Outpatient (RCR) | payer MEDICARE, MEDICAID ==
[2017-03-18 12:13] LABS: BASOPHILS # (AUTO) 0.1 10^3/uL (0.0-0.1); BASOPHILS % (AUTO) 1 % (0-10); EOSINOPHILS # (AUTO) 0.2 10^3/uL (0.0-0.3); EOSINOPHILS % (AUTO) 3 % (0-10); LYMPHOCYTES # (AUTO) 1.1 X 10^3 (1.0-4.0); LYMPHOCYTES % (AUTO) 23 % (12-44); MEAN CORPUSCULAR HEMOGLOBIN 25 PG (25-34); MEAN CORPUSCULAR HGB CONC 30 G/DL (32-36); MEAN CORPUSCULAR VOLUME 81 FL (80-99); MEAN PLATELET VOLUME 9.5 FL (7.4-10.4); MONOCYTES # (AUTO) 0.5 X 10^3 (0.0-1.0); MONOCYTES % (AUTO) 11 % (0-12); NEUTROPHILS # (AUTO) 2.9 X 10^3 (1.8-7.8); NEUTROPHILS % (AUTO) 62 % (42-75); PLATELET COUNT 137 10^3/uL (130-400); RED BLOOD COUNT 4.22 10^6/uL (4.35-5.85); WHITE BLOOD COUNT 4.7 10^3/uL (4.3-11.0)
[2017-04-02 14:47] LABS: BASOPHILS # (AUTO) 0.1 10^3/uL (0.0-0.1); BASOPHILS % (AUTO) 1 % (0-10); EOSINOPHILS # (AUTO) 0.2 10^3/uL (0.0-0.3); EOSINOPHILS % (AUTO) 4 % (0-10); LYMPHOCYTES % (AUTO) 23 % (12-44); MEAN CORPUSCULAR HEMOGLOBIN 25 PG (25-34); MEAN CORPUSCULAR HGB CONC 30 G/DL (32-36); MEAN CORPUSCULAR VOLUME 81 FL (80-99); MEAN PLATELET VOLUME 9.6 FL (7.4-10.4); MONOCYTES # (AUTO) 0.6 X 10^3 (0.0-1.0); MONOCYTES % (AUTO) 14 % (0-12); NEUTROPHILS # (AUTO) 2.5 X 10^3 (1.8-7.8); NEUTROPHILS % (AUTO) 59 % (42-75); PLATELET COUNT 129 10^3/uL (130-400); RED BLOOD COUNT 4.36 10^6/uL (4.35-5.85); RED CELL DISTRIBUTION WIDTH 19.9 % (10.0-14.5); WHITE BLOOD COUNT 4.2 10^3/uL (4.3-11.0)
[2017-04-02 16:13] LABS: ALBUMIN 3.8 GM/DL (3.2-4.5); BILIRUBIN,TOTAL 0.4 MG/DL (0.1-1.0); CALCIUM 9.1 MG/DL (8.5-10.1); CREATININE SERUM 2.52 MG/DL (0.60-1.30); POTASSIUM 5.3 MMOL/L (3.6-5.0); TOTAL PROTEIN 7.5 GM/DL (6.4-8.2)
[2017-04-15 15:55] LABS: BASOPHILS # (AUTO) 0.1 10^3/uL (0.0-0.1); BASOPHILS % (AUTO) 2 % (0-10); EOSINOPHILS # (AUTO) 0.2 10^3/uL (0.0-0.3); EOSINOPHILS % (AUTO) 3 % (0-10); LYMPHOCYTES # (AUTO) 1.1 X 10^3 (1.0-4.0); LYMPHOCYTES % (AUTO) 23 % (12-44); MEAN CORPUSCULAR HEMOGLOBIN 26 PG (25-34); MEAN CORPUSCULAR HGB CONC 31 G/DL (32-36); MEAN CORPUSCULAR VOLUME 83 FL (80-99); MEAN PLATELET VOLUME 10.5 FL (7.4-10.4); MONOCYTES # (AUTO) 0.7 X 10^3 (0.0-1.0); MONOCYTES % (AUTO) 14 % (0-12); NEUTROPHILS # (AUTO) 2.7 X 10^3 (1.8-7.8); NEUTROPHILS % (AUTO) 58 % (42-75); PLATELET COUNT 120 10^3/uL (130-400); RED BLOOD COUNT 4.31 10^6/uL (4.35-5.85); RED CELL DISTRIBUTION WIDTH 19.7 % (10.0-14.5); WHITE BLOOD COUNT 4.7 10^3/uL (4.3-11.0)
[2017-04-29 14:26] LABS: BASOPHILS # (AUTO) 0.1 10^3/uL (0.0-0.1); BASOPHILS % (AUTO) 1 % (0-10); EOSINOPHILS # (AUTO) 0.1 10^3/uL (0.0-0.3); EOSINOPHILS % (AUTO) 3 % (0-10); LYMPHOCYTES # (AUTO) 1.1 X 10^3 (1.0-4.0); LYMPHOCYTES % (AUTO) 25 % (12-44); MEAN CORPUSCULAR HEMOGLOBIN 26 PG (25-34); MEAN CORPUSCULAR HGB CONC 31 G/DL (32-36); MEAN CORPUSCULAR VOLUME 83 FL (80-99); MEAN PLATELET VOLUME 10.4 FL (7.4-10.4); MONOCYTES # (AUTO) 0.6 X 10^3 (0.0-1.0); MONOCYTES % (AUTO) 13 % (0-12); NEUTROPHILS # (AUTO) 2.7 X 10^3 (1.8-7.8); NEUTROPHILS % (AUTO) 58 % (42-75); PLATELET COUNT 124 10^3/uL (130-400); RED BLOOD COUNT 3.92 10^6/uL (4.35-5.85); RED CELL DISTRIBUTION WIDTH 19.8 % (10.0-14.5); WHITE BLOOD COUNT 4.6 10^3/uL (4.3-11.0)
[~2017-05-13 15:25] MED LIST changes: +DARBEPOETIN 60 MCG/ML ARANESP (CANCER CTR) INJ SCH
[2017-05-13 15:55] LABS: BASOPHILS # (AUTO) 0.1 10^3/uL (0.0-0.1); BASOPHILS % (AUTO) 1 % (0-10); EOSINOPHILS # (AUTO) 0.2 10^3/uL (0.0-0.3); EOSINOPHILS % (AUTO) 3 % (0-10); LYMPHOCYTES % (AUTO) 21 % (12-44); MEAN CORPUSCULAR HEMOGLOBIN 26 PG (25-34); MEAN CORPUSCULAR HGB CONC 31 G/DL (32-36); MEAN CORPUSCULAR VOLUME 84 FL (80-99); MEAN PLATELET VOLUME 10.1 FL (7.4-10.4); MONOCYTES # (AUTO) 0.7 X 10^3 (0.0-1.0); MONOCYTES % (AUTO) 15 % (0-12); NEUTROPHILS # (AUTO) 2.9 X 10^3 (1.8-7.8); NEUTROPHILS % (AUTO) 60 % (42-75); PLATELET COUNT 144 10^3/uL (130-400); RED CELL DISTRIBUTION WIDTH 20.1 % (10.0-14.5); WHITE BLOOD COUNT 4.8 10^3/uL (4.3-11.0)
== END 2017-05-17 | disposition home or self-care (01) ==
LOC: ONC 15:25
PROVIDERS: ATTEND Internal Medicine Hematology & Oncology
DX: N18.4 Chronic kidney disease, stage 4 (severe) (principal); D63.1 Anemia in chronic kidney disease; I12.9 Hypertensive chronic kidney disease with stage 1 through stage 4 chronic kidney disease, or unspecified chronic kidney disease; E11.22 Type 2 diabetes mellitus with diabetic chronic kidney disease; E03.9 Hypothyroidism, unspecified; I25.10 Atherosclerotic heart disease of native coronary artery without angina pectoris; Z79.899 Other long term (current) drug therapy; Z95.1 Presence of aortocoronary bypass graft
CPT/HCPCS: 36415; 80053; 85025; 96372

== ENCOUNTER 2017-08-20 15:10 | Outpatient (RCR) | payer MEDICARE, MEDICAID ==
[2017-05-27 14:12] LABS: BASOPHILS % (AUTO) 0 % (0-10); EOSINOPHILS % (AUTO) 0 % (0-10); HEMATOCRIT 32 % (35-52); HEMOGLOBIN 9.8 G/DL (11.5-16.0); LYMPHOCYTES # (AUTO) 0.6 X 10^3 (1.0-4.0); LYMPHOCYTES % (AUTO) 10 % (12-44); MEAN CORPUSCULAR HEMOGLOBIN 26 PG (25-34); MEAN CORPUSCULAR HGB CONC 31 G/DL (32-36); MEAN CORPUSCULAR VOLUME 85 FL (80-99); MEAN PLATELET VOLUME 10.8 FL (7.4-10.4); MONOCYTES # (AUTO) 0.7 X 10^3 (0.0-1.0); MONOCYTES % (AUTO) 12 % (0-12); NEUTROPHILS # (AUTO) 4.1 X 10^3 (1.8-7.8); NEUTROPHILS % (AUTO) 77 % (42-75); PLATELET COUNT 130 10^3/uL (130-400); RED BLOOD COUNT 3.75 10^6/uL (4.35-5.85); RED CELL DISTRIBUTION WIDTH 20.2 % (10.0-14.5); WHITE BLOOD COUNT 5.4 10^3/uL (4.3-11.0)
[2017-06-10 15:44] LABS: BASOPHILS # (AUTO) 0.1 10^3/uL (0.0-0.1); BASOPHILS % (AUTO) 2 % (0-10); EOSINOPHILS # (AUTO) 0.1 10^3/uL (0.0-0.3); EOSINOPHILS % (AUTO) 3 % (0-10); HEMATOCRIT 32 % (35-52); HEMOGLOBIN 9.7 G/DL (11.5-16.0); LYMPHOCYTES # (AUTO) 0.7 X 10^3 (1.0-4.0); LYMPHOCYTES % (AUTO) 19 % (12-44); MEAN CORPUSCULAR HEMOGLOBIN 26 PG (25-34); MEAN CORPUSCULAR HGB CONC 30 G/DL (32-36); MEAN CORPUSCULAR VOLUME 85 FL (80-99); MEAN PLATELET VOLUME 10.2 FL (7.4-10.4); MONOCYTES # (AUTO) 0.5 X 10^3 (0.0-1.0); MONOCYTES % (AUTO) 13 % (0-12); NEUTROPHILS # (AUTO) 2.4 X 10^3 (1.8-7.8); NEUTROPHILS % (AUTO) 64 % (42-75); PLATELET COUNT 111 10^3/uL (130-400); RED BLOOD COUNT 3.75 10^6/uL (4.35-5.85); RED CELL DISTRIBUTION WIDTH 19.5 % (10.0-14.5); WHITE BLOOD COUNT 3.8 10^3/uL (4.3-11.0)
[2017-06-24 15:13] LABS: BASOPHILS # (AUTO) 0.1 10^3/uL (0.0-0.1); BASOPHILS % (AUTO) 2 % (0-10); EOSINOPHILS # (AUTO) 0.1 10^3/uL (0.0-0.3); EOSINOPHILS % (AUTO) 3 % (0-10); HEMATOCRIT 33 % (35-52); HEMOGLOBIN 9.9 G/DL (11.5-16.0); LYMPHOCYTES % (AUTO) 24 % (12-44); MEAN CORPUSCULAR HEMOGLOBIN 26 PG (25-34); MEAN CORPUSCULAR HGB CONC 31 G/DL (32-36); MEAN CORPUSCULAR VOLUME 86 FL (80-99); MEAN PLATELET VOLUME 9.6 FL (7.4-10.4); MONOCYTES # (AUTO) 0.5 X 10^3 (0.0-1.0); MONOCYTES % (AUTO) 13 % (0-12); NEUTROPHILS # (AUTO) 2.4 X 10^3 (1.8-7.8); NEUTROPHILS % (AUTO) 59 % (42-75); PLATELET COUNT 127 10^3/uL (130-400); RED CELL DISTRIBUTION WIDTH 19.2 % (10.0-14.5); WHITE BLOOD COUNT 4.1 10^3/uL (4.3-11.0)
[2017-06-24 15:32] LABS: ALBUMIN 3.6 GM/DL (3.2-4.5); BILIRUBIN,TOTAL 0.4 MG/DL (0.1-1.0); CALCIUM 8.6 MG/DL (8.5-10.1); CREATININE SERUM 2.76 MG/DL (0.60-1.30); POTASSIUM 5.5 MMOL/L (3.6-5.0); TOTAL PROTEIN 7.2 GM/DL (6.4-8.2)
[2017-07-08 13:45] LABS: BASOPHILS # (AUTO) 0.1 10^3/uL (0.0-0.1); BASOPHILS % (AUTO) 1 % (0-10); EOSINOPHILS # (AUTO) 0.1 10^3/uL (0.0-0.3); EOSINOPHILS % (AUTO) 2 % (0-10); HEMATOCRIT 32 % (35-52); HEMOGLOBIN 10.1 G/DL (11.5-16.0); LYMPHOCYTES # (AUTO) 0.9 X 10^3 (1.0-4.0); LYMPHOCYTES % (AUTO) 24 % (12-44); MEAN CORPUSCULAR HEMOGLOBIN 27 PG (25-34); MEAN CORPUSCULAR HGB CONC 31 G/DL (32-36); MEAN CORPUSCULAR VOLUME 86 FL (80-99); MEAN PLATELET VOLUME 9.9 FL (7.4-10.4); MONOCYTES # (AUTO) 0.5 X 10^3 (0.0-1.0); MONOCYTES % (AUTO) 12 % (0-12); NEUTROPHILS # (AUTO) 2.4 X 10^3 (1.8-7.8); NEUTROPHILS % (AUTO) 61 % (42-75); PLATELET COUNT 101 10^3/uL (130-400); RED BLOOD COUNT 3.74 10^6/uL (4.35-5.85); RED CELL DISTRIBUTION WIDTH 18.6 % (10.0-14.5); WHITE BLOOD COUNT 3.9 10^3/uL (4.3-11.0)
[2017-07-22 14:47] LABS: BASOPHILS % (AUTO) 1 % (0-10); EOSINOPHILS # (AUTO) 0.2 10^3/uL (0.0-0.3); EOSINOPHILS % (AUTO) 4 % (0-10); HEMATOCRIT 33 % (35-52); HEMOGLOBIN 10.2 G/DL (11.5-16.0); LYMPHOCYTES # (AUTO) 0.9 X 10^3 (1.0-4.0); LYMPHOCYTES % (AUTO) 22 % (12-44); MEAN CORPUSCULAR HEMOGLOBIN 27 PG (25-34); MEAN CORPUSCULAR HGB CONC 31 G/DL (32-36); MEAN CORPUSCULAR VOLUME 86 FL (80-99); MONOCYTES # (AUTO) 0.5 X 10^3 (0.0-1.0); MONOCYTES % (AUTO) 14 % (0-12); NEUTROPHILS # (AUTO) 2.4 X 10^3 (1.8-7.8); NEUTROPHILS % (AUTO) 59 % (42-75); PLATELET COUNT 132 10^3/uL (130-400); RED BLOOD COUNT 3.85 10^6/uL (4.35-5.85); RED CELL DISTRIBUTION WIDTH 18.1 % (10.0-14.5)
[2017-08-05 15:07] LABS: BASOPHILS % (AUTO) 1 % (0-10); EOSINOPHILS # (AUTO) 0.2 10^3/uL (0.0-0.3); EOSINOPHILS % (AUTO) 4 % (0-10); HEMATOCRIT 34 % (35-52); HEMOGLOBIN 10.4 G/DL (11.5-16.0); LYMPHOCYTES # (AUTO) 0.9 X 10^3 (1.0-4.0); LYMPHOCYTES % (AUTO) 20 % (12-44); MEAN CORPUSCULAR HEMOGLOBIN 27 PG (25-34); MEAN CORPUSCULAR HGB CONC 31 G/DL (32-36); MEAN CORPUSCULAR VOLUME 86 FL (80-99); MEAN PLATELET VOLUME 10.8 FL (7.4-10.4); MONOCYTES # (AUTO) 0.7 X 10^3 (0.0-1.0); MONOCYTES % (AUTO) 15 % (0-12); NEUTROPHILS # (AUTO) 2.8 X 10^3 (1.8-7.8); NEUTROPHILS % (AUTO) 61 % (42-75); PLATELET COUNT 117 10^3/uL (130-400); RED CELL DISTRIBUTION WIDTH 18.3 % (10.0-14.5); WHITE BLOOD COUNT 4.6 10^3/uL (4.3-11.0)
[2017-08-20 15:32] LABS: BASOPHILS % (AUTO) 1 % (0-10); EOSINOPHILS # (AUTO) 0.1 10^3/uL (0.0-0.3); EOSINOPHILS % (AUTO) 3 % (0-10); HEMATOCRIT 34 % (35-52); HEMOGLOBIN 10.5 G/DL (11.5-16.0); LYMPHOCYTES # (AUTO) 0.7 X 10^3 (1.0-4.0); LYMPHOCYTES % (AUTO) 16 % (12-44); MEAN CORPUSCULAR HEMOGLOBIN 27 PG (25-34); MEAN CORPUSCULAR HGB CONC 31 G/DL (32-36); MEAN CORPUSCULAR VOLUME 87 FL (80-99); MONOCYTES # (AUTO) 0.6 X 10^3 (0.0-1.0); MONOCYTES % (AUTO) 13 % (0-12); NEUTROPHILS % (AUTO) 68 % (42-75); PLATELET COUNT 113 10^3/uL (130-400); RED BLOOD COUNT 3.93 10^6/uL (4.35-5.85); RED CELL DISTRIBUTION WIDTH 17.9 % (10.0-14.5); WHITE BLOOD COUNT 4.5 10^3/uL (4.3-11.0)
== END 2017-08-25 | disposition home or self-care (01) ==
LOC: ONC 15:10
PROVIDERS: ATTEND Internal Medicine Hematology & Oncology
DX: N18.4 Chronic kidney disease, stage 4 (severe) (principal); D63.1 Anemia in chronic kidney disease; I12.9 Hypertensive chronic kidney disease with stage 1 through stage 4 chronic kidney disease, or unspecified chronic kidney disease; E11.22 Type 2 diabetes mellitus with diabetic chronic kidney disease; E03.9 Hypothyroidism, unspecified; I25.10 Atherosclerotic heart disease of native coronary artery without angina pectoris; Z79.899 Other long term (current) drug therapy; Z95.1 Presence of aortocoronary bypass graft
CPT/HCPCS: 36415; 80053; 84443; 85025; 96372

== ENCOUNTER → 2017-10-28 | Outpatient (CLI) | payer MEDICARE, MEDICAID ==
[~2017-10-28] MED LIST changes: -DARBEPOETIN 60 MCG/ML ARANESP (CANCER CTR) INJ SCH
[2017-10-28 13:13] LABS: BASOPHILS # (AUTO) 0.1 10^3/uL (0.0-0.1); BASOPHILS % (AUTO) 2 % (0-10); EOSINOPHILS # (AUTO) 0.2 10^3/uL (0.0-0.3); EOSINOPHILS % (AUTO) 4 % (0-10); HEMATOCRIT 32 % (35-52); HEMOGLOBIN 9.7 G/DL (11.5-16.0); LYMPHOCYTES # (AUTO) 0.8 X 10^3 (1.0-4.0); LYMPHOCYTES % (AUTO) 18 % (12-44); MEAN CORPUSCULAR HEMOGLOBIN 26 PG (25-34); MEAN CORPUSCULAR HGB CONC 31 G/DL (32-36); MEAN CORPUSCULAR VOLUME 85 FL (80-99); MEAN PLATELET VOLUME 10.8 FL (7.4-10.4); MONOCYTES # (AUTO) 0.5 X 10^3 (0.0-1.0); MONOCYTES % (AUTO) 12 % (0-12); NEUTROPHILS # (AUTO) 2.8 X 10^3 (1.8-7.8); NEUTROPHILS % (AUTO) 65 % (42-75); PLATELET COUNT 135 10^3/uL (130-400); RED BLOOD COUNT 3.69 10^6/uL (4.35-5.85); RED CELL DISTRIBUTION WIDTH 19.1 % (10.0-14.5); WHITE BLOOD COUNT 4.3 10^3/uL (4.3-11.0)
[2017-10-28 13:16] LABS: BILIRUBIN,URINE NEGATIVE (NEGATIVE); CLARITY,URINE CLEAR; COLOR,URINE YELLOW; GLUCOSE, URINE (UA) NEGATIVE (NEGATIVE); KETONES,URINE NEGATIVE (NEGATIVE); LEUKOCYTE ESTERASE ,URINE 3+ (NEGATIVE); NITRITE,URINE NEGATIVE (NEGATIVE); PH,URINE 7 (5-9); PROTEIN,URINE 3+ (NEGATIVE); UROBILINOGEN,URINE NORMAL (NORMAL)
[2017-10-28 13:29] LABS: ALBUMIN 3.7 GM/DL (3.2-4.5); CALCIUM 8.7 MG/DL (8.5-10.1); CREATININE SERUM 2.53 MG/DL (0.60-1.30); POTASSIUM 4.6 MMOL/L (3.6-5.0)
[2017-10-28 13:31] LABS: BACTERIA,URINE TRACE /HPF
== END ==
LOC: LAB 12:52
PROVIDERS: ATTEND Internal Medicine Nephrology
DX: D64.9 Anemia, unspecified (principal); I12.9 Hypertensive chronic kidney disease with stage 1 through stage 4 chronic kidney disease, or unspecified chronic kidney disease; N18.4 Chronic kidney disease, stage 4 (severe); R80.9 Proteinuria, unspecified; I25.10 Atherosclerotic heart disease of native coronary artery without angina pectoris; E11.9 Type 2 diabetes mellitus without complications; E87.2 Acidosis; R60.9 Edema, unspecified
CPT/HCPCS: 36415; 80069; 81000; 82306; 82570; 82728; 83540; 83970; 84156; 85025; 87088

== ENCOUNTER 2017-11-25 13:46 | Outpatient (RCR) | payer MEDICARE, MEDICAID ==
[2017-09-04 15:23] LABS: BASOPHILS % (AUTO) 1 % (0-10); EOSINOPHILS # (AUTO) 0.2 10^3/uL (0.0-0.3); EOSINOPHILS % (AUTO) 4 % (0-10); HEMATOCRIT 32 % (35-52); HEMOGLOBIN 9.8 G/DL (11.5-16.0); LYMPHOCYTES # (AUTO) 0.8 X 10^3 (1.0-4.0); LYMPHOCYTES % (AUTO) 17 % (12-44); MEAN CORPUSCULAR HEMOGLOBIN 27 PG (25-34); MEAN CORPUSCULAR HGB CONC 31 G/DL (32-36); MEAN CORPUSCULAR VOLUME 86 FL (80-99); MEAN PLATELET VOLUME 10.2 FL (7.4-10.4); MONOCYTES # (AUTO) 0.6 X 10^3 (0.0-1.0); MONOCYTES % (AUTO) 12 % (0-12); NEUTROPHILS # (AUTO) 3.2 X 10^3 (1.8-7.8); NEUTROPHILS % (AUTO) 67 % (42-75); PLATELET COUNT 143 10^3/uL (130-400); RED BLOOD COUNT 3.69 10^6/uL (4.35-5.85); RED CELL DISTRIBUTION WIDTH 17.5 % (10.0-14.5); WHITE BLOOD COUNT 4.8 10^3/uL (4.3-11.0)
[2017-09-16 15:15] LABS: BASOPHILS % (AUTO) 1 % (0-10); EOSINOPHILS # (AUTO) 0.1 10^3/uL (0.0-0.3); EOSINOPHILS % (AUTO) 3 % (0-10); HEMATOCRIT 31 % (35-52); HEMOGLOBIN 9.8 G/DL (11.5-16.0); LYMPHOCYTES # (AUTO) 0.9 X 10^3 (1.0-4.0); LYMPHOCYTES % (AUTO) 20 % (12-44); MEAN CORPUSCULAR HEMOGLOBIN 27 PG (25-34); MEAN CORPUSCULAR HGB CONC 31 G/DL (32-36); MEAN CORPUSCULAR VOLUME 85 FL (80-99); MEAN PLATELET VOLUME 9.8 FL (7.4-10.4); MONOCYTES # (AUTO) 0.5 X 10^3 (0.0-1.0); MONOCYTES % (AUTO) 12 % (0-12); NEUTROPHILS # (AUTO) 2.9 X 10^3 (1.8-7.8); NEUTROPHILS % (AUTO) 64 % (42-75); PLATELET COUNT 145 10^3/uL (130-400); RED CELL DISTRIBUTION WIDTH 17.9 % (10.0-14.5); WHITE BLOOD COUNT 4.5 10^3/uL (4.3-11.0)
[2017-09-16 15:35] LABS: ALBUMIN 3.5 GM/DL (3.2-4.5); BILIRUBIN,TOTAL 0.4 MG/DL (0.1-1.0); CALCIUM 8.5 MG/DL (8.5-10.1); CREATININE SERUM 2.9 MG/DL (0.60-1.30); POTASSIUM 4.7 MMOL/L (3.6-5.0); TOTAL PROTEIN 7.3 GM/DL (6.4-8.2)
[2017-09-30 15:12] LABS: BASOPHILS % (AUTO) 1 % (0-10); EOSINOPHILS # (AUTO) 0.2 10^3/uL (0.0-0.3); EOSINOPHILS % (AUTO) 4 % (0-10); HEMATOCRIT 34 % (35-52); HEMOGLOBIN 10.4 G/DL (11.5-16.0); LYMPHOCYTES # (AUTO) 0.8 X 10^3 (1.0-4.0); LYMPHOCYTES % (AUTO) 18 % (12-44); MEAN CORPUSCULAR HEMOGLOBIN 26 PG (25-34); MEAN CORPUSCULAR HGB CONC 31 G/DL (32-36); MEAN CORPUSCULAR VOLUME 85 FL (80-99); MEAN PLATELET VOLUME 9.5 FL (7.4-10.4); MONOCYTES # (AUTO) 0.7 X 10^3 (0.0-1.0); MONOCYTES % (AUTO) 15 % (0-12); NEUTROPHILS % (AUTO) 63 % (42-75); PLATELET COUNT 138 10^3/uL (130-400); RED BLOOD COUNT 3.95 10^6/uL (4.35-5.85); RED CELL DISTRIBUTION WIDTH 17.6 % (10.0-14.5); WHITE BLOOD COUNT 4.7 10^3/uL (4.3-11.0)
[2017-10-14 15:05] LABS: BASOPHILS # (AUTO) 0.1 10^3/uL (0.0-0.1); BASOPHILS % (AUTO) 1 % (0-10); EOSINOPHILS # (AUTO) 0.1 10^3/uL (0.0-0.3); EOSINOPHILS % (AUTO) 3 % (0-10); HEMATOCRIT 32 % (35-52); HEMOGLOBIN 9.8 G/DL (11.5-16.0); LYMPHOCYTES # (AUTO) 0.9 X 10^3 (1.0-4.0); LYMPHOCYTES % (AUTO) 19 % (12-44); MEAN CORPUSCULAR HEMOGLOBIN 26 PG (25-34); MEAN CORPUSCULAR HGB CONC 31 G/DL (32-36); MEAN CORPUSCULAR VOLUME 85 FL (80-99); MEAN PLATELET VOLUME 10.6 FL (7.4-10.4); MONOCYTES # (AUTO) 0.6 X 10^3 (0.0-1.0); MONOCYTES % (AUTO) 13 % (0-12); NEUTROPHILS % (AUTO) 65 % (42-75); PLATELET COUNT 110 10^3/uL (130-400); RED BLOOD COUNT 3.76 10^6/uL (4.35-5.85); RED CELL DISTRIBUTION WIDTH 18.9 % (10.0-14.5); WHITE BLOOD COUNT 4.7 10^3/uL (4.3-11.0)
[2017-10-28 13:14] LABS: BASOPHILS # (AUTO) 0.1 10^3/uL (0.0-0.1); BASOPHILS % (AUTO) 1 % (0-10); EOSINOPHILS # (AUTO) 0.1 10^3/uL (0.0-0.3); EOSINOPHILS % (AUTO) 3 % (0-10); HEMATOCRIT 32 % (35-52); HEMOGLOBIN 9.7 G/DL (11.5-16.0); LYMPHOCYTES # (AUTO) 0.9 X 10^3 (1.0-4.0); LYMPHOCYTES % (AUTO) 20 % (12-44); MEAN CORPUSCULAR HEMOGLOBIN 26 PG (25-34); MEAN CORPUSCULAR HGB CONC 31 G/DL (32-36); MEAN CORPUSCULAR VOLUME 85 FL (80-99); MEAN PLATELET VOLUME 10.7 FL (7.4-10.4); MONOCYTES # (AUTO) 0.4 X 10^3 (0.0-1.0); MONOCYTES % (AUTO) 10 % (0-12); NEUTROPHILS # (AUTO) 2.8 X 10^3 (1.8-7.8); NEUTROPHILS % (AUTO) 66 % (42-75); PLATELET COUNT 134 10^3/uL (130-400); RED BLOOD COUNT 3.72 10^6/uL (4.35-5.85); RED CELL DISTRIBUTION WIDTH 19.1 % (10.0-14.5); WHITE BLOOD COUNT 4.3 10^3/uL (4.3-11.0)
[2017-11-11 13:51] LABS: BASOPHILS % (AUTO) 1 % (0-10); EOSINOPHILS # (AUTO) 0.1 10^3/uL (0.0-0.3); EOSINOPHILS % (AUTO) 3 % (0-10); HEMATOCRIT 32 % (35-52); HEMOGLOBIN 9.7 G/DL (11.5-16.0); LYMPHOCYTES # (AUTO) 0.9 X 10^3 (1.0-4.0); LYMPHOCYTES % (AUTO) 21 % (12-44); MEAN CORPUSCULAR HEMOGLOBIN 27 PG (25-34); MEAN CORPUSCULAR HGB CONC 31 G/DL (32-36); MEAN CORPUSCULAR VOLUME 86 FL (80-99); MONOCYTES # (AUTO) 0.5 X 10^3 (0.0-1.0); MONOCYTES % (AUTO) 11 % (0-12); NEUTROPHILS # (AUTO) 2.8 X 10^3 (1.8-7.8); NEUTROPHILS % (AUTO) 64 % (42-75); PLATELET COUNT 104 10^3/uL (130-400); RED BLOOD COUNT 3.66 10^6/uL (4.35-5.85); RED CELL DISTRIBUTION WIDTH 19.3 % (10.0-14.5); WHITE BLOOD COUNT 4.4 10^3/uL (4.3-11.0)
[~2017-11-25 13:46] MED LIST changes: +DARBEPOETIN 60 MCG/ML ARANESP (CANCER CTR) INJ SCH; -GNT.3OO351 OP; +GNT.3OO351 OS
[2017-11-25 13:56] LABS: BASOPHILS % (AUTO) 1 % (0-10); EOSINOPHILS # (AUTO) 0.1 10^3/uL (0.0-0.3); EOSINOPHILS % (AUTO) 3 % (0-10); HEMATOCRIT 33 % (35-52); HEMOGLOBIN 10.2 G/DL (11.5-16.0); LYMPHOCYTES # (AUTO) 0.7 X 10^3 (1.0-4.0); LYMPHOCYTES % (AUTO) 17 % (12-44); MEAN CORPUSCULAR HEMOGLOBIN 27 PG (25-34); MEAN CORPUSCULAR HGB CONC 31 G/DL (32-36); MEAN CORPUSCULAR VOLUME 88 FL (80-99); MEAN PLATELET VOLUME 10.2 FL (7.4-10.4); MONOCYTES # (AUTO) 0.5 X 10^3 (0.0-1.0); MONOCYTES % (AUTO) 12 % (0-12); NEUTROPHILS # (AUTO) 2.6 X 10^3 (1.8-7.8); NEUTROPHILS % (AUTO) 67 % (42-75); PLATELET COUNT 103 10^3/uL (130-400); RED BLOOD COUNT 3.76 10^6/uL (4.35-5.85); WHITE BLOOD COUNT 3.9 10^3/uL (4.3-11.0)
== END 2017-12-03 | disposition home or self-care (01) ==
LOC: ONC 13:46
PROVIDERS: ATTEND Internal Medicine Hematology & Oncology
DX: N18.4 Chronic kidney disease, stage 4 (severe) (principal); D63.1 Anemia in chronic kidney disease; I12.9 Hypertensive chronic kidney disease with stage 1 through stage 4 chronic kidney disease, or unspecified chronic kidney disease; E11.22 Type 2 diabetes mellitus with diabetic chronic kidney disease; E03.9 Hypothyroidism, unspecified; I25.10 Atherosclerotic heart disease of native coronary artery without angina pectoris; Z79.899 Other long term (current) drug therapy; Z95.1 Presence of aortocoronary bypass graft
CPT/HCPCS: 36415; 80053; 82728; 83540; 85025; 96372

== ENCOUNTER 2017-11-26 14:45 | Outpatient (RCR) | payer MEDICARE, MEDICAID ==
[2017-11-17] MEDS: IRON SUCROSE 200 MG/10 ML (VENOFER) VIAL IV SCH (14:14)
[2017-11-17 14:45] VITALS: BP 138/66
[2017-11-19 17:05] VITALS: BP 127/63
[2017-11-19] MEDS: IRON SUCROSE 200 MG/10 ML (VENOFER) VIAL IV SCH (17:20)
[2017-11-21 16:50] VITALS: BP 134/75
[2017-11-21] MEDS: IRON SUCROSE 200 MG/10 ML (VENOFER) VIAL IV SCH (17:10)
[2017-11-24] MEDS: IRON SUCROSE 200 MG/10 ML (VENOFER) VIAL IV SCH (16:49)
[2017-11-24 17:25] VITALS: BP 139/76
[~2017-11-26] VITALS: Ht 157.5 cm; Wt 68.9 kg
[~2017-11-26 14:45] MED LIST changes: +ACETAMINOPHEN 500 MG TAB (TYLENOL) ONE; +ACETAMINOPHEN 500 MG TAB (TYLENOL) PO PRN; -DARBEPOETIN 60 MCG/ML ARANESP (CANCER CTR) INJ SCH; +diphenhydrAMINE 50 MG/ML INJ (BENADRYL) IV PRN; +diphenhydrAMINE 50 MG/ML INJ (BENADRYL) ONE
[2017-11-26] MEDS: IRON SUCROSE 200 MG/10 ML (VENOFER) VIAL IV SCH (15:10)
[2017-11-26 17:53] VITALS: BP 132/65
== END 2018-02-15 | disposition home or self-care (01) ==
LOC: SDC 14:45
PROVIDERS: ATTEND Internal Medicine Nephrology
DX: D50.9 Iron deficiency anemia, unspecified (principal); D63.1 Anemia in chronic kidney disease; N18.4 Chronic kidney disease, stage 4 (severe); Z79.899 Other long term (current) drug therapy
CPT/HCPCS: 96365

== ENCOUNTER → 2018-02-17 | Outpatient (CLI) | payer MEDICARE, MEDICAID ==
[~2018-02-17] MED LIST changes: -ACETAMINOPHEN 500 MG TAB (TYLENOL) ONE; -ACETAMINOPHEN 500 MG TAB (TYLENOL) PO PRN; +AMOX1TAB11 PO; +BUDE10.2 INH; +CALC500T3 PO; +CHOL20003 PO; +DICL100G18 TOP; +FERR325T18 PO; +FLUT16SP22 NS; +FURO20TA4 PO; +GUAI600T43 PO; +LEVO100T7 PO; +LORA10TA7 PO; +LOSA50TA36 PO; +MULT1TAB69 PO; +ROSU40TA22 PO; +SODI30SP2 NS; +SODI650T PO; -diphenhydrAMINE 50 MG/ML INJ (BENADRYL) IV PRN; -diphenhydrAMINE 50 MG/ML INJ (BENADRYL) ONE
[2018-02-17 10:38] LABS: BASOPHILS % (AUTO) 1 % (0-10); EOSINOPHILS # (AUTO) 0.1 10^3/uL (0.0-0.3); EOSINOPHILS % (AUTO) 3 % (0-10); HEMATOCRIT 33 % (35-52); HEMOGLOBIN 10.2 G/DL (11.5-16.0); LYMPHOCYTES # (AUTO) 1.1 X 10^3 (1.0-4.0); LYMPHOCYTES % (AUTO) 24 % (12-44); MEAN CORPUSCULAR HEMOGLOBIN 28 PG (25-34); MEAN CORPUSCULAR HGB CONC 31 G/DL (32-36); MEAN CORPUSCULAR VOLUME 91 FL (80-99); MEAN PLATELET VOLUME 10.7 FL (7.4-10.4); MONOCYTES # (AUTO) 0.6 X 10^3 (0.0-1.0); MONOCYTES % (AUTO) 12 % (0-12); NEUTROPHILS # (AUTO) 2.8 X 10^3 (1.8-7.8); NEUTROPHILS % (AUTO) 61 % (42-75); PLATELET COUNT 123 10^3/uL (130-400); RED BLOOD COUNT 3.58 10^6/uL (4.35-5.85); RED CELL DISTRIBUTION WIDTH 17.8 % (10.0-14.5); WHITE BLOOD COUNT 4.7 10^3/uL (4.3-11.0)
[2018-02-17 11:07] LABS: ALBUMIN 3.9 GM/DL (3.2-4.5); CALCIUM 8.9 MG/DL (8.5-10.1); CREATININE SERUM 2.69 MG/DL (0.60-1.30); PHOSPHORUS 4.5 MG/DL (2.3-4.7); POTASSIUM 4.8 MMOL/L (3.6-5.0)
[2018-02-17 11:16] LABS: BACTERIA,URINE NEGATIVE /HPF; BILIRUBIN,URINE NEGATIVE (NEGATIVE); CLARITY,URINE CLEAR; COLOR,URINE YELLOW; GLUCOSE, URINE (UA) 1+ (NEGATIVE); KETONES,URINE NEGATIVE (NEGATIVE); LEUKOCYTE ESTERASE ,URINE 1+ (NEGATIVE); NITRITE,URINE NEGATIVE (NEGATIVE); PH,URINE 8 (5-9); PROTEIN,URINE 2+ (NEGATIVE); RBC,URINE 0-2 /HPF; UROBILINOGEN,URINE NORMAL (NORMAL); WBC,URINE RARE /HPF
== END ==
LOC: LAB 10:18
PROVIDERS: ATTEND Internal Medicine Nephrology
DX: R80.9 Proteinuria, unspecified (principal); I12.9 Hypertensive chronic kidney disease with stage 1 through stage 4 chronic kidney disease, or unspecified chronic kidney disease; D64.9 Anemia, unspecified; I25.10 Atherosclerotic heart disease of native coronary artery without angina pectoris; N18.4 Chronic kidney disease, stage 4 (severe); E11.9 Type 2 diabetes mellitus without complications; E87.2 Acidosis; R60.9 Edema, unspecified; E61.1 Iron deficiency
CPT/HCPCS: 36415; 80069; 81000; 82570; 84156; 84550; 85025

== ENCOUNTER 2018-02-22 17:38 | Inpatient (IN) | payer MEDICARE, MEDICAID ==
[~2018-02-22] VITALS: Ht 167.6 cm; Wt 70.9 kg
[~2018-02-22 17:38] MED LIST changes: -AMOX1TAB11 PO; -BUDE10.2 INH; -CALC500T3 PO; -CHOL20003 PO; -DICL100G18 TOP; -FERR325T18 PO; -FLUT16SP22 NS; -FURO20TA4 PO; -GUAI600T43 PO; -LEVO100T7 PO; -LORA10TA7 PO; -LOSA50TA36 PO; -MULT1TAB69 PO; -ROSU40TA22 PO; -SODI30SP2 NS; -SODI650T PO
[2018-02-22] MEDS ORDERED: NS IV 1000 ML 1,000 ML IV ONE (18:23)
[2018-02-22 18:32] LABS: BILIRUBIN,URINE NEGATIVE (NEGATIVE); CLARITY,URINE SLIGHTLY CLOUDY; COLOR,URINE YELLOW; GLUCOSE, URINE (UA) 1+ (NEGATIVE); KETONES,URINE NEGATIVE (NEGATIVE); LEUKOCYTE ESTERASE ,URINE NEGATIVE (NEGATIVE); NITRITE,URINE NEGATIVE (NEGATIVE); PH,URINE 8 (5-9); PROTEIN,URINE 2+ (NEGATIVE); UROBILINOGEN,URINE NORMAL (NORMAL)
[2018-02-22 18:33] LABS: BASOPHILS % (AUTO) 1 % (0-10); EOSINOPHILS # (AUTO) 0.1 10^3/uL (0.0-0.3); EOSINOPHILS % (AUTO) 2 % (0-10); HEMATOCRIT 33 % (35-52); HEMOGLOBIN 10.6 G/DL (11.5-16.0); LYMPHOCYTES % (AUTO) 19 % (12-44); MEAN CORPUSCULAR HEMOGLOBIN 29 PG (25-34); MEAN CORPUSCULAR HGB CONC 32 G/DL (32-36); MEAN CORPUSCULAR VOLUME 92 FL (80-99); MEAN PLATELET VOLUME 10.7 FL (7.4-10.4); MONOCYTES # (AUTO) 0.7 X 10^3 (0.0-1.0); MONOCYTES % (AUTO) 14 % (0-12); NEUTROPHILS # (AUTO) 3.3 X 10^3 (1.8-7.8); NEUTROPHILS % (AUTO) 65 % (42-75); PLATELET COUNT 121 10^3/uL (130-400); RED BLOOD COUNT 3.63 10^6/uL (4.35-5.85); RED CELL DISTRIBUTION WIDTH 17.6 % (10.0-14.5); WHITE BLOOD COUNT 5.2 10^3/uL (4.3-11.0)
[2018-02-22 18:38] LABS: INR 1.2 (0.8-1.4)
[2018-02-22 18:39] LABS: BACTERIA,URINE NEGATIVE /HPF; RBC,URINE 0-2 /HPF
[2018-02-22 18:48] LABS: ALBUMIN 3.7 GM/DL (3.2-4.5); BILIRUBIN,TOTAL 0.4 MG/DL (0.1-1.0); CALCIUM 8.7 MG/DL (8.5-10.1); CREATININE SERUM 2.65 MG/DL (0.60-1.30); POTASSIUM 3.8 MMOL/L (3.6-5.0); TOTAL PROTEIN 7.2 GM/DL (6.4-8.2)
--- NOTE | 2018-02-22 18:58 | ED General ---
General Chief Complaint: Altered Mental Status Stated Complaint: LOC Nursing Triage Note: EMS advise that [facility] staff reported that the patient has had an altered level of consciousness x 2 days that has no improved. Upon ems arrival the patient was found to have a bgl of 27 and was administered D50 at that time. Glucose improved to 243 however the patients level of consciousness has not improved. Nursing Sepsis Screen: No Definite Risk Source of Information: Patient Exam Limitations: Physical Impairments History of Present Illness Date Seen by Provider: Feb 22, 2018 Time Seen by Provider: 18:04 Initial Comments Here by EMS with report of altered mental status. Apparently had a blood sugar at around 200 and was given insulin and repeat insulin and then and thereafter became shaky and weak as well as sweaty. EMS was summoned after blood sugar was found in the 70s and then EMS found blood sugar of 27. They did give an amp of D50 at that time but did not have much improvement. Apparently the patient has had 2 days of altered mental status that the staff there believed was may be sundowners syndrome. She remains altered today although will answer her name and follows simple commands. She is otherwise unable to provide history. She does appear to be having some abdominal pain and is complaining of being cold. Temperature noted to be 91F. Timing/Duration: 2-3 Days, Getting Worse Severity: Moderate Associated Systoms: No Cough; Diaphoresis, Fever/Chills; No Nausea/Vomiting; Weakness Allergies and Home Medications Allergies Coded Allergies: No Known Drug Allergies (Unverified , 05/18/16) Home Medications Acetaminophen 500 Mg Tablet, 500 MG PO Q6H PRN for PAIN, (Reported) Calcium Carbonate 200 Mg Tab.chew, 200-400 MG PO DAILY PRN for STOMACH UPSET, ( Reported) TAKES 1-2 TABLETS Carvedilol 6.25 Mg Tablet, 12.5 MG PO BID, (Reported) TAKES 2 (6.25 MG) TABLETS Cefuroxime Axetil 500 Mg Tablet, 500 MG PO BID Prescribed by: LEVON DOUGLASS on 06/20/16 0817 Cholecalciferol (Vitamin D3) 2,000 Unit Capsule, 2,000 UNIT PO DAILY, (Reported) Clopidogrel Bisulfate 75 Mg Tablet, 75 MG PO DAILY, (Reported) Cyanocobalamin (Vitamin B-12) 500 Mcg Tablet, 500 MCG PO DAILY, (Reported) Darbepoetin Ramos In Polysorbat 40 Mcg/1 Ml Vial, 40 MCG IJ EVERY 2 WEEKS, ( Reported) Gentamicin Sulfate 3.5 Gm Oint...g., OP TID, (Reported) APPLY 1/2 INCH INTO LEFT EYE Insulin Aspart 100 Unit/1 Ml Insuln.pen, 10 UNITS SQ BID@0700,1200, (Reported) Insulin Aspart 300 Units/3 Ml Solution, SQ SLIDING/SCALE, (Reported) 150-200 3 UNITS 201-250 5 UNITS 251-300 8 UNITS 301-350 10 UNITS 351- 400 13 UNITS Insulin Glargine,Hum.rec.anlog 100 Unit/1 Ml Insuln.pen, 30 UNITS SQ HS, ( Reported) Levothyroxine Sodium 150 Mcg Tablet, 150 MCG PO DAILY, (Reported) Losartan Potassium 100 Mg Tablet, 100 MG PO DAILY, (Reported) Multivitamins 1 Tab Tablet, 1 TAB PO DAILY, (Reported) Mupirocin Calcium 15 Gm Cream..g., TP DAILY, (Reported) APPLY TO RIGHT RING FINGER Manning 3 Polyunsat Fatty Acids 1,000 Mg Cap, 2,000 MG PO DAILY, (Reported) TAKES 2 (1,000 MG) CAPSULES Rosuvastatin Calcium 40 Mg Tablet, 40 MG PO HS, (Reported) Patient Home Medication List Home Medication List Reviewed: Yes Review of Systems Constitutional: chills, diaphoresis; No fever; weakness Gastrointestinal: abdominal pain; No vomiting Unable to complete review of systems due to altered mental status Past Fgnyzjd-Wqgxgy-Bpfkov Hx Past Med/Social Hx: Reviewed Nursing Past Med/Soc Hx Patient Social History Alcohol Use: Denies Use Recreational Drug Use: No Former Smoker, Quit: Apr 10, 1995 2nd Hand Smoke Exposure: No Recent Foreign Travel: No Contact w/Someone Who Travel: No Recent Infectious Disease Expo: No Recent Hopitalizations: No Physical Abuse: No Sexual Abuse: No Immunizations Up To Date Tetanus Booster (TDap): More than 5yrs Date of Pneumonia Vaccine: May 18, 2014 Date of Influenza Vaccine: Apr 29, 2014 Seasonal Allergies Seasonal Allergies: Yes Past Medical History Surgeries: Yes Adenoidectomy, Nose, Tonsillectomy Currently Using CPAP: No Currently Using BIPAP: No Coronary Artery Disease Reproductive Disorders: No Sexually Transmitted Disease: No Renal Failure Gastroesophageal Reflux Diabetes, Insulin dep, Hypothyroidsim Cataract Loss of Vision: Denies Hearing Impairment: Hard of Hearing Nursing Suicide Risk Score: 0 Adverse Reaction/Blood Tranf: No Family Medical History Reviewed Nursing Family Hx Alzheimer's disease 19 MOTHER ( AT AGE 97) Congenital heart disease 19 MOTHER (HAD ENLARGED HEART) Diabetes mellitus 19 MOTHER (BORDERLINE DM) GRANDMOTHER FH: lung cancer 19 FATHER ( WITH LUNG CANCER) No Pertinent Family Hx Physical Exam-Suspected Sepsis Physical Exam Vital Signs Vital Signs - First Documented 02/22/18 18:24 Temp 91.3 Pulse 54 Resp 14 B/P (MAP) 156/68 (97) Pulse Ox 98 O2 Delivery Room Air Capillary Refill : Greater Than 3 Seconds Blood Pressure Mean: 97 Height, Weight, BMI Height: 5', 6.00" Weight: 180lbs 0.0oz, [id number] Method:Estimated ,27.8BMI General Appearance: WD/WN, Moderate Distress HEENT: PERRL/EOMI, Pharynx Normal Neck: Non Tender, Supple Respiratory: No Respiratory Distress, Decreased Breath Sounds Cardiovascular: No Murmur, Bradycardia Gastrointestinal: Soft, Tenderness (mild diffuse tenderness) Back: Normal Inspection, No CVA Tenderness, No Vertebral Tenderness Extremity: Normal Capillary Refill, Non Tender, Pedal Edema (mild edema to bilateral lower extremities) Neurologic/Psychiatric: Other (followsimple commands and answers a few questions but otherwise just moans and reports that she is cold.) Skin: cool; No rash, No ulcerations Focused Exam Lactate Level 02/22/18 17:47: Lactic Acid Level 0.75 Lactic Acid Level Progress/Results/Core Measures Suspected Sepsis Recent Fever Within 48 Hours: No Infection Criteria Present: Suspected New Infection New/Unexplained Altered Menta: Yes Sepsis Screen: No Definite Risk SIRS Temperature:91.3 Pulse: 54 Respiratory Rate: 14 Laboratory Tests 02/22/18 17:47: White Blood Count 5.2 Blood Pressure 156 /68 Mean: 97 02/22/18 17:47: Lactic Acid Level 0.75 Laboratory Tests 02/22/18 17:47: Creatinine 2.65H, INR Comment 1.2, Platelet Count 121L, Total Bilirubin 0.4 Results/Orders Lab Results Laboratory Tests Test 02/22/18 17:43 02/22/18 17:44 02/22/18 17:47 02/22/18 17:52 Range/Units Glucometer 173 H 70-110 MG/DL B-Type Natriuretic Peptide 777.9 H <100.0 PG/ML White Blood Count 5.2 4.3-11.0 10^3/uL Red Blood Count 3.63 L 4.35-5.85 10^6/uL Hemoglobin 10.6 L 11.5-16.0 G/DL Hematocrit 33 L 35-52 % Mean Corpuscular Volume 92 80-99 FL Mean Corpuscular Hemoglobin 29 25-34 PG Mean Corpuscular Hemoglobin Concent 32 32-36 G/DL Red Cell Distribution Width 17.6 H 10.0-14.5 % Platelet Count 121 L 130-400 10^3/uL Mean Platelet Volume 10.7 H 7.4-10.4 FL Neutrophils (%) (Auto) 65 42-75 % Lymphocytes (%) (Auto) 19 12-44 % Monocytes (%) (Auto) 14 H 0-12 % Eosinophils (%) (Auto) 2 0-10 % Basophils (%) (Auto) 1 0-10 % Neutrophils # (Auto) 3.3 1.8-7.8 X 10^3 Lymphocytes # (Auto) 1.0 1.0-4.0 X 10^3 Monocytes # (Auto) 0.7 0.0-1.0 X 10^3 Eosinophils # (Auto) 0.1 0.0-0.3 10^3/uL Basophils # (Auto) 0.0 0.0-0.1 10^3/uL Prothrombin Time 15.0 H 12.2-14.7 SEC INR Comment 1.2 0.8-1.4 Activated Partial Thromboplast Time 51 H 24-35 SEC Sodium Level 143 135-145 MMOL/L Potassium Level 3.8 3.6-5.0 MMOL/L Chloride Level 109 H 98-107 MMOL/L Carbon Dioxide Level 23 21-32 MMOL/L Anion Gap 11 5-14 MMOL/L Blood Urea Nitrogen 45 H 7-18 MG/DL Creatinine 2.65 H 0.60-1.30 MG/DL Estimat Glomerular Filtration Rate 17 BUN/Creatinine Ratio 17 Glucose Level 172 H 70-105 MG/DL Lactic Acid Level 0.75 0.50-2.00 MMOL/L Calcium Level 8.7 8.5-10.1 MG/DL Total Bilirubin 0.4 0.1-1.0 MG/DL Aspartate Amino Transf (AST/SGOT) 33 5-34 U/L Alanine Aminotransferase (ALT/SGPT) 36 0-55 U/L Alkaline Phosphatase 146 H 40-136 U/L Troponin I < 0.30 <0.30 NG/ML Total Protein 7.2 6.4-8.2 GM/DL Albumin 3.7 3.2-4.5 GM/DL Amylase Level 52 25-125 U/L Lipase 59 8-78 U/L TSH Wilkinson Testing 0.66 0.35-4.94 UIU/ML Urine Color YELLOW Urine Clarity SLIGHTLY CLOUDY Urine pH 8 5-9 Urine Specific Cobb 1.015 L 1.016-1.022 Urine Protein 2+ H NEGATIVE Urine Glucose (UA) 1+ H NEGATIVE Urine Ketones NEGATIVE NEGATIVE Urine Nitrite NEGATIVE NEGATIVE Urine Bilirubin NEGATIVE NEGATIVE Urine Urobilinogen NORMAL NORMAL MG/DL Urine Leukocyte Esterase NEGATIVE NEGATIVE Urine RBC (Auto) 1+ H NEGATIVE Urine RBC 0-2 /HPF Urine WBC NONE /HPF Urine Squamous Epithelial Cells NONE /HPF Urine Crystals NONE /LPF Urine Bacteria NEGATIVE /HPF Urine Casts NONE /LPF Urine Mucus NEGATIVE /LPF Urine Culture Indicated NO Test 02/22/18 18:44 02/22/18 21:26 Range/Units Glucometer 131 H 175 H 70-110 MG/DL My Orders Orders - MELISSA AMADOR MD Cbc With Automated Diff (02/22/18 18:23) Comprehensive Metabolic Panel (02/22/18 18:23) Lactic Acid Analyzer (02/22/18 18:23) Blood Culture (02/22/18 18:23) Sputum Culture (02/22/18 18:23) Ua Culture If Indicated (02/22/18 18:23) Protime With Inr (02/22/18 18:23) Partial Thromboplastin Time (02/22/18 18:23) Chest 1 View, Ap/Pa Only (02/22/18 18:23) O2 (02/22/18 18:23) Saline Lock/Iv-Start (02/22/18 18:23) Vital Signs Adult Sepsis Patie Q15M (02/22/18 18:23) Remove Rings In Anticipation O (02/22/18 18:23) Amylase (02/22/18 18:23) Lipase (02/22/18 18:23) Saline Lock/Iv-Start (02/22/18 18:23) Ns Iv 1000 Ml (Sodium Chloride 0.9%) (02/22/18 18:23) Catheter(Urinary) Insert & Ass 03,15 (02/22/18 18:23) Troponin I (02/22/18 19:22) Thyroid Analyzer (02/22/18 19:23) BNP (02/22/18 19:26) Ct Chest/Abdomen/Pelvis Wo (02/22/18 19:39) Ct Head Wo (02/22/18 19:54) Dysphagia Screening Tool (02/22/18 19:54) Piperacillin/Tazobactam (Zosyn Vial) (02/22/18 21:30) Medications Given in ED Current Medications Medications Dose Ordered Sig/Je Route Start Time Stop Time Status Last Admin Dose Admin Sodium Chloride 1,000 ml @ 0 mls/hr Q0M ONCE IV 02/22/18 18:23 02/22/18 18:27 DC 02/22/18 18:44 0 MLS/HR Vital Signs/I&O 02/22/18 02/22/18 18:24 21:44 Temp 91.3 Pulse 54 70 Resp 14 14 B/P (MAP) 156/68 (97) 149/64 Pulse Ox 98 98 O2 Delivery Room Air Room Air Capillary Refill : Greater Than 3 Seconds Blood Pressure Mean: 97 Progress Note : Progress Note Seen and evaluated. IV, labs, EKG and chest x-ray ordered. Sepsis workup initiated due to hypothermia noted to be at 33C. Active warming with warm blankets and 1 L of normal saline warmed. Patient did receive 500 mL of normal saline via EMS. Monitor patient. Patient remains comfortable despite fluids and warm blankets. Jaquan hugger initiated. We have added thyroid function and BNP to the labs given patient's findings on chest x-ray. 1950: Patient is actually doing better now after initiation of Jaquan hugger. We will get CT of the head that she is complaining of head pain as well as CT of chest abdomen pelvis given pain findings and concerns. This was discussed with patient and family who agree. Monitor patient. 2114: I discussed the case with Dr. Rivera. We do not sinusitis on the CT of the head as well as left perihilar thickening that could be pneumonia. We will initiate Zosyn 3.375 g IV. Patient is doing much better as she is rewarming. She is able to converse completely with me and family now. Patient to be admitted to the ICU stepdown. Dr. Rivera has requested consulted Dr. Ragsdale and I have paged him. : I discussed the case with Dr. Ragsdale as well and he agrees. Patient remains mentating well with blood pressure 151/75, heart rate 74, O2 sat 100 percent on room air, lungs are clear to auscultation. Patient does not have findings of septic shock but focused exam has been completed at this time. Admit, inpatient status. Patient and family agree with plan. ECG Initial ECG Impression Date: Feb 22, 2018 Initial ECG Impression Time: 17:41 Initial ECG Rate: 53 Initial ECG Rhythm: S.Jonnathan Initial ECG Comparisson: Unchanged Comment Left bundle branch block with first-degree AV block. Right axis deviation. Similar to previous. Interpreted by me. Diagnostic Imaging Diagonstic Imaging: Xray Plain Films/CT/US/NM/MRI: chest Comments NAME: HOLLIS CABEZAS MED REC#: [id number] PT STATUS: REG ER : 1940 PHYSICIAN: MELISSA AMADOR MD ADMIT DATE: 02/22/18/ER Signed Date of Exam: 02/22/18 CHEST 1 VIEW, AP/PA ONLY INDICATION: Altered mental status. EXAMINATION: Frontal view of the chest was obtained at 6:52 p.m. COMPARISON: 06/19/2016. FINDINGS: There is post sternotomy change with cardiomegaly and unchanged pacemaker device. There is worsening central vascular congestion and interstitial edema. There is no pneumothorax or pleural fluid. IMPRESSION: Cardiomegaly and central vascular congestion with worsening interstitial edema compared to the prior study of 06/19/2016. Pacemaker device is unchanged. No new consolidation or pleural fluid. Dictated by: Dictated on workstation # [id number] Dict: 02/22/181907 Trans: 02/22/181948 Interpreted by: SHAYLEE DACOSTA MD Electronically signed by: SHAYLEE DACOSTA MD 02/22/181948 Reviewed: Reviewed by Me Diagonstic Imaging: CT Plain Films/CT/US/NM/MRI: head Comments VIA [facility]. [place], [place] NAME: HOLLIS CABEZAS MED REC#: [id number] PT STATUS: REG ER : 1940 PHYSICIAN: MELISSA AMADOR MD ADMIT DATE: 02/22/18/ER Draft Date of Exam:02/22/18 CT HEAD WO INDICATION: Posterior head pain, no known injury. Noncontrast brain CT is performed. There are mild diffuse atrophic changes. There are no extra-axial fluid collections. No intracranial hemorrhage. No intracranial mass or mass effect. No midline shift. The ventricles are normal in size and position. There is an old lacunar infarct in the left caudate head. There is no acute appearing intracranial finding. Calvarial windows show no overt bony abnormality. The left sphenoid sinus is fluid-filled. There is some mild fluid in the right sphenoid sinus. There is some fluid in the ethmoid air cells. IMPRESSION: Atrophic changes with no acute intracranial abnormality. 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 Underlying sinus disease as described above. Dictated on workstation # [id number] Dict: 02/22/182031 Trans: 02/22/182042 [facility] [id number] Interpreted by: SHAYLEE DACOSTA MD Electronically signed by: Laurengonsharris Imaging: CT Plain Films/CT/US/NM/MRI: chest, abdomen, pelvis Comments NAME: HOLLIS CABEZAS [facility] REC#: [id number] PT STATUS: REG ER : 1940 PHYSICIAN: MELISSA AMADOR MD ADMIT DATE: 02/22/18/ER Signed Date of Exam: 02/22/18 CT CHEST/ABDOMEN/PELVIS WO INDICATION: Abdominal pain and low blood sugar and altered metal status. EXAMINATION: CT chest, abdomen and pelvis was obtained without IV contrast. COMPARISON: There is no previous study for comparison. CT CHEST FINDINGS: Patient has had previous sternotomy and coronary artery bypass. There is a pacemaker device in place with tip in the RV apex. There is cardiomegaly. There are no enlarged axillary nodes or chest wall lesions. There is no pleural or pericardial effusion. There are no enlarged hilar nodes. There is a borderline sized node in the mediastinum between the trachea and SVC, measuring about 12 mm. There is a borderline sized node in the precarinal region, measuring about 14 mm. Lung parenchymal windows demonstrate some peribronchial thickening and basilar interstitial scarring. There is some linear atelectatic change in the left upper lobe. There is no alveolar consolidation or discrete pulmonary parenchymal mass. CT ABDOMEN/PELVIS FINDINGS: The liver shows no focal lesion. There are gallstones in the gallbladder without overt pericholecystic inflammatory change. The spleen, adrenals and pancreas are normal in appearance. Kidneys, bilaterally, show vascular calcifications. There is no hydronephrosis or discrete renal mass. There is diffuse atherosclerotic change of the aorta without evidence of aneurysm. There is no retroperitoneal mass or adenopathy. There is no ascites or abnormal fluid collection. There is a Dailey catheter in the bladder. The bladder is decompressed. There are uncomplicated colonic diverticuli. There is no sign of bowel obstruction. IMPRESSION: 1. CT chest demonstrates some peribronchial thickening and bibasilar interstitial scarring. There is some linear atelectatic change in the left upper lobe. There is no pulmonary parenchymal consolidation or discrete mass. There is cardiomegaly with postoperative change. There are borderline size nodes in the mediastinum, as above, which are of questionable significance and followup is suggested, as clinically warranted. 2. CT abdomen and pelvis demonstrates cholelithiasis. There are extensive vascular calcifications. There is no abdominal mass or abnormal fluid collection or sign of bowel obstruction. There are uncomplicated colonic diverticuli. Dictated by: Dictated on workstation # [id number] Dict: 02/22/182046 Trans: 02/22/182109 Interpreted by: SHAYLEE DACOSTA MD Electronically signed by: SHAYLEE DACOSTA MD 02/22/182109 Departure Communication (Admissions) Time/Spoke to Admitting Phy: 21:15 Time/Spoke to Consulting Phy: 21:45 Impression Primary Impression: Hypothermia Qualified Codes: T68.XXXA - Hypothermia, initial encounter Additional Impressions: Sinusitis, acute Qualified Codes: J01.90 - Acute sinusitis, unspecified Pneumonia involving left lung Qualified Codes: J18.9 - Pneumonia, unspecified organism Disposition: ADMITTED INPATIENT Condition: Stable Admissions Decision to Admit Reason: Admit from ER (General) Decision to Admit/Date: Feb 22, 2018 Time/Decision to Admit Time: 21:15 Departure-Patient Inst. Referrals: RITA WALTON MD (PCP/Family) Primary Care Physician MELISSA AMADOR MD Feb 22, 2018 18:58
--- NOTE | 2018-02-22 19:14 | Diagnostic Imaging Report ---
INDICATION: Altered mental status. EXAMINATION: Frontal view of the chest was obtained at 6:52 p.m. COMPARISON: 06/19/2016. FINDINGS: There is post sternotomy change with cardiomegaly and unchanged pacemaker device. There is worsening central vascular congestion and interstitial edema. There is no pneumothorax or pleural fluid. IMPRESSION: Cardiomegaly and central vascular congestion with worsening interstitial edema compared to the prior study of 06/19/2016. Pacemaker device is unchanged. No new consolidation or pleural fluid. Dictated by: Dictated on workstation # [id number]
[2018-02-22 19:57] LABS: TSH (THYROID ANALYZER) 0.66 UIU/ML (0.35-4.94)
--- NOTE | 2018-02-22 20:43 | Diagnostic Imaging Report ---
INDICATION: Posterior head pain, no known injury. Noncontrast brain CT is performed. There are mild diffuse atrophic changes. There are no extra-axial fluid collections. No intracranial hemorrhage. No intracranial mass or mass effect. No midline shift. The ventricles are normal in size and position. There is an old lacunar infarct in the left caudate head. There is no acute appearing intracranial finding. Calvarial windows show no overt bony abnormality. The left sphenoid sinus is fluid-filled. There is some mild fluid in the right sphenoid sinus. There is some fluid in the ethmoid air cells. IMPRESSION: Atrophic changes with no acute intracranial abnormality. 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 Underlying sinus disease as described above. Dictated by: Dictated on workstation # [id number]
--- NOTE | 2018-02-22 21:00 | Diagnostic Imaging Report ---
INDICATION: Abdominal pain and low blood sugar and altered metal status. EXAMINATION: CT chest, abdomen and pelvis was obtained without IV contrast. COMPARISON: There is no previous study for comparison. CT CHEST FINDINGS: Patient has had previous sternotomy and coronary artery bypass. There is a pacemaker device in place with tip in the RV apex. There is cardiomegaly. There are no enlarged axillary nodes or chest wall lesions. There is no pleural or pericardial effusion. There are no enlarged hilar nodes. There is a borderline sized node in the mediastinum between the trachea and SVC, measuring about 12 mm. There is a borderline sized node in the precarinal region, measuring about 14 mm. Lung parenchymal windows demonstrate some peribronchial thickening and basilar interstitial scarring. There is some linear atelectatic change in the left upper lobe. There is no alveolar consolidation or discrete pulmonary parenchymal mass. CT ABDOMEN/PELVIS FINDINGS: The liver shows no focal lesion. There are gallstones in the gallbladder without overt pericholecystic inflammatory change. The spleen, adrenals and pancreas are normal in appearance. Kidneys, bilaterally, show vascular calcifications. There is no hydronephrosis or discrete renal mass. There is diffuse atherosclerotic change of the aorta without evidence of aneurysm. There is no retroperitoneal mass or adenopathy. There is no ascites or abnormal fluid collection. There is a Dailey catheter in the bladder. The bladder is decompressed. There are uncomplicated colonic diverticuli. There is no sign of bowel obstruction. IMPRESSION: 1. CT chest demonstrates some peribronchial thickening and bibasilar interstitial scarring. There is some linear atelectatic change in the left upper lobe. There is no pulmonary parenchymal consolidation or discrete mass. There is cardiomegaly with postoperative change. There are borderline size nodes in the mediastinum, as above, which are of questionable significance and followup is suggested, as clinically warranted. 2. CT abdomen and pelvis demonstrates cholelithiasis. There are extensive vascular calcifications. There is no abdominal mass or abnormal fluid collection or sign of bowel obstruction. There are uncomplicated colonic diverticuli. Dictated by: Dictated on workstation # [id number]
[2018-02-22] MEDS ORDERED: PIPERACILLIN/TAZOBACTAM 3.375 GM in D5W 100 ML IVPB 100 ML IV ONE (21:30)
[2018-02-22 22:15] VITALS: BP 135/56
[2018-02-22 22:20] VITALS: BP 135/56
[2018-02-22] MEDS: NS IV 1000 ML 1,000 ML IV SCH (23:00)
[2018-02-22] MEDS ORDERED: RT-ALBUTEROL SULF 2.5 MG/3 ML PRE-MIX VIAL INH PRN (23:15)
[2018-02-23] VITALS: BP 135/51
[2018-02-23] MEDS ORDERED: PIPERACILLIN/TAZO 3.375 GM/D5W 100 ML IV SCH ×2 (02:00)
[2018-02-23 03:50] LABS: BASOPHILS % (AUTO) 1 % (0-10); EOSINOPHILS # (AUTO) 0.1 10^3/uL (0.0-0.3); EOSINOPHILS % (AUTO) 1 % (0-10); HEMATOCRIT 29 % (35-52); HEMOGLOBIN 9.3 G/DL (11.5-16.0); LYMPHOCYTES # (AUTO) 1.1 X 10^3 (1.0-4.0); LYMPHOCYTES % (AUTO) 23 % (12-44); MEAN CORPUSCULAR HEMOGLOBIN 29 PG (25-34); MEAN CORPUSCULAR HGB CONC 32 G/DL (32-36); MEAN CORPUSCULAR VOLUME 92 FL (80-99); MEAN PLATELET VOLUME 10.7 FL (7.4-10.4); MONOCYTES # (AUTO) 0.7 X 10^3 (0.0-1.0); MONOCYTES % (AUTO) 14 % (0-12); NEUTROPHILS % (AUTO) 62 % (42-75); PLATELET COUNT 135 10^3/uL (130-400); RED CELL DISTRIBUTION WIDTH 17.6 % (10.0-14.5); WHITE BLOOD COUNT 4.9 10^3/uL (4.3-11.0)
[2018-02-23 04:00] VITALS: BP 122/45
[2018-02-23 04:15] LABS: ALBUMIN 3.2 GM/DL (3.2-4.5); BILIRUBIN,TOTAL 0.4 MG/DL (0.1-1.0); CALCIUM 8.3 MG/DL (8.5-10.1); CREATININE SERUM 2.45 MG/DL (0.60-1.30); POTASSIUM 4.2 MMOL/L (3.6-5.0); TOTAL PROTEIN 6.1 GM/DL (6.4-8.2)
--- NOTE | 2018-02-23 05:35 | Pulmonary Consultation ---
History of Present Illness History of Present Illness Date of Consultation 02/23/18 05:29 Time Seen by Provider: 09:29 Date of Admission History of Present Illness 77yo with hx of DM, dementia presneted to ED secondary to worsening confusion. She lives in assisted living. She was found to also have hypoglycemia with BS of 27 and hypothermia with temp of 91.3. Pt was place on a bear hugger and wam saline was infused. . She was given 1 amp of D50 and symptoms improved. I am consulted for ICU management. Allergies and Home Medications Allergies Coded Allergies: No Known Drug Allergies (Unverified , 05/18/16) Home Medications Acetaminophen 500 Mg Tablet, 500 MG PO Q6H PRN for PAIN-MILD OR TEMPATURE, ( Reported) Amoxicillin/Potassium Clav 1 Each Tablet, 500 MG PO BID WITH MEALS Prescribed by: RITA WALTON on 02/24/18 0929 Budesonide/Formoterol Fumarate 10.2 Gm Hfa.aer.ad, 1 PUFF INH BID, (Reported) Calcium Carbonate 500 Mg Tablet, 1,000 MG PO DAILY PRN for NAUSEA/VOMITING/ UPSET STOMACH, (Reported) Carvedilol 6.25 Mg Tablet, 12.5 MG PO BID, (Reported) TAKES 2 (6.25 MG) TABLETS Cholecalciferol (Vitamin D3) 2,000 Unit Capsule, 2,000 UNIT PO DAILY, (Reported) Clopidogrel Bisulfate 75 Mg Tablet, 75 MG PO DAILY, (Reported) Cyanocobalamin (Vitamin B-12) 500 Mcg Tablet, 500 MCG PO DAILY, (Reported) Diclofenac Sodium 100 Gm Gel..gram., 2 GM TOP QID, (Reported) APPLY TO LT HAND/THUMB Ferrous Sulfate 325 Mg Tablet, 325 MG PO DAILY, (Reported) Fluticasone Propionate 16 Gm [place].susp, 1 SPRAY NS BID PRN for ALLERGIES, ( Reported) Furosemide 20 Mg Tablet, 20 MG PO DAILY, (Reported) Gentamicin Sulfate 3.5 Gm Oint...g., OS TID PRN for IRRITATION, (Reported) APPLY 1/2 INCH INTO LT EYE Guaifenesin 600 Mg Tab.er.12h, 600 MG PO BID, (Reported) Insulin Aspart 300 Units/3 Ml Solution, SQ ACHS, (Reported) 251-300 = 5 UNITS 301-350 = 8 UNITS 351-400 = 10 UNITS Insulin Aspart 300 Units/3 Ml Solution, 8 UNITS SQ 1200, (Reported) Insulin Glargine,Hum.rec.anlog 100 Unit/1 Ml Insuln.pen, 25 UNITS SQ HS, ( Reported) Levothyroxine Sodium 100 Mcg Tablet, 100 MCG PO DAILY, (Reported) Loratadine 10 Mg Tablet, 10 MG PO DAILY PRN for ALLERGIES, (Reported) Losartan Potassium 50 Mg Tablet, 50 MG PO DAILY, (Reported) Multivitamin 1 Each Tablet, 1 TAB PO DAILY, (Reported) [place] 3 Polyunsat Fatty Acids 1,000 Mg Cap, 2,000 MG PO DAILY, (Reported) TAKES 2 (1,000 MG) CAPSULES Rosuvastatin Calcium 40 Mg Tablet, 40 MG PO HS, (Reported) Sodium Bicarbonate 650 Mg Tablet, 650 MG PO BID, (Reported) Sodium Chloride 30 Ml [place], 2 SPRAYS NS UD PRN for DRY NOSE, (Reported) Past Pcecqsq-Kycrso-Uncsts Hx Past Med/Social Hx: Reviewed Nursing Past Med/Soc Hx Patient Social History Alcohol Use: Denies Use Recreational Drug Use: No Smoking Status: Never a Smoker Former Smoker, Quit: Apr 10, 1995 2nd Hand Smoke Exposure: No Recent Foreign Travel: No Contact w/Someone Who Travel: No Recent Infectious Disease Expo: No Recent Hopitalizations: No Physical Abuse: No Sexual Abuse: No Immunizations Up To Date Tetanus Booster (TDap): More than 5yrs Date of Pneumonia Vaccine: May 18, 2014 Date of Influenza Vaccine: Apr 29, 2014 Seasonal Allergies Seasonal Allergies: Yes Past Medical History Surgeries: Yes Adenoidectomy, Nose, Tonsillectomy Respiratory: No Currently Using CPAP: No Currently Using BIPAP: No Cardiac: Yes Coronary Artery Disease Neurological: Yes Reproductive Disorders: No Sexually Transmitted Disease: No HIV/AIDS: No Genitourinary: Yes Renal Failure Gastrointestinal: Yes Gastroesophageal Reflux Musculoskeletal: No Endocrine: Yes Diabetes, Insulin dep, Hypothyroidsim Cataract Loss of Vision: Denies Hearing Impairment: Hard of Hearing Cancer: No Psychosocial: No Nursing Suicide Risk Score: 0 Integumentary: No Blood Disorders: Yes Adverse Reaction/Blood Tranf: No Family Medical History Reviewed Nursing Family Hx Alzheimer's disease 19 MOTHER ( AT AGE 97) Congenital heart disease 19 MOTHER (HAD ENLARGED HEART) Diabetes mellitus 19 MOTHER (BORDERLINE DM) GRANDMOTHER FH: lung cancer 19 FATHER ( WITH LUNG CANCER) No Pertinent Family Hx Review of Systems Time Seen by Provider: 09:32 Constitutional: Sweats, Weakness, Malaise Eyes: No: Pain, Vision change, Conjunctivae inflammation, Eyelid inflammation, Other, Redness Respiratory: Cough, Dry, Shortness of breath Cardiovascular: No: Chest Pain, Palpitations, Orthopnea, Paroxysmal Noc. Dyspnea, Edema, Lt Headedness, Other Neurological: Weakness, Incoordination, Confusion Exam Exam Vital Signs Date Time Temp Pulse Resp B/P (MAP) Pulse Ox O2 Delivery O2 Flow Rate FiO2 02/23/18 04:00 80 17 122/45 (70) 98 Room Air 02/23/18 04:00 98 Room Air 02/23/18 04:00 97.5 Room Air 02/23/18 01:00 77 02/23/18 00:00 97.4 Room Air 02/23/18 00:00 98 Room Air 02/23/18 00:00 77 17 135/51 (79) 96 Room Air 02/22/18 22:20 72 99 21 02/22/18 22:20 72 99 21 02/22/18 22:15 96.0 76 19 135/56 (82) 100 Room Air 02/22/18 22:15 100 Room Air 02/22/18 22:13 73 02/22/18 21:44 70 14 149/64 98 Room Air 02/22/18 18:24 91.3 54 14 156/68 (97) 98 Room Air I & O 02/23/18 07:00 Intake Total 1600 ml Balance 1600 ml PULEXAM Height: 5', 6.00" Weight: 160lbs 0.0oz, [id number] Method:Estimated ,25.8BMI General Appearance: WD/WN, Moderate Distress HEENT: PERRL/EOMI, Pharynx Normal Neck: Non Tender, Supple Respiratory: No Respiratory Distress, Decreased Breath Sounds Cardiovascular: No Murmur, Bradycardia Capillary Refill: Greater Than 3 Seconds Gastrointestinal: normal bowel sounds, non tender, soft Extremity: Normal Capillary Refill, Non Tender, Pedal Edema (mild edema to bilateral lower extremities) Neurologic/Psychiatric: Alert, Oriented x3, Other (followsimple commands and answers a few questions but otherwise just moans and reports that she is cold.) Skin: Normal Color, Warm/Dry Lymphatic: No Adenopathy Results Lab Laboratory Tests 02/22/18 17:47 02/23/18 03:00 Assessment/Plan Assessment/Plan Hypoglycemia after insulin EMS BS was 27 Hypothermia 91F at admission - now improve Bradycardic -IMProved throughout the night Acute on chronic Kidney disease -Will increase IVF and give a liter bolus Hx of dementia Sinusitis -Zosyn currently - change to Augmentin systolic CHF hx with EF 30-35% Discussed patient with Dr. Davis last night. Labs and radiology reviewed. WINNIE MELENDREZ DO Feb 23, 2018 05:35
[2018-02-23] MEDS ORDERED: NS IV 1000 ML 1,000 ML IV ONE (05:45)
[2018-02-23] MEDS: inSUlin ASPART (NovoLOG) 1 UNIT/0.01 ML (CHARGE PER UNIT) SC SCH ×4 (05:54→22:33)
[2018-02-23] MEDS: AUGMENTIN 500 MG TAB (AMOXICILLIN/CLAVULANATE) PO SCH ×2 (08:01→16:46)
--- NOTE | 2018-02-23 08:40 | History & Physicial ---
History of Present Illness History of Present Illness Reason for visit/HPI PT IS A 77 Y/O FEMALE WHO IS KNOWN TO ME FROM CLINIC. SHE HAS HISTORY OF DIABETES MELLITUS - INSULIN DEPENDENT. PT HAS DEMENTIA AND DOES NOT ACCURATELY FOLLOW A DIABETIC DIET. PER ER REPORT, PT WAS HAVING INCREASING CONFUSION AT THE ASSISTED LIVING FACILITY, SHE HAD AN ELEVATED GLUCOSE ON FRIDAY EVENING, WAS GIVEN INSULIN AND HAD WORSENING MENTAL STATUS CHANGES. EMS WAS CALLED AND FOUND HER BLOOD GLUCOSE TO BE 27, SHE WAS GIVEN AN AMP OF D50 AND THEN BROUGHT TO THE HOSPITAL WHERE SHE WAS FOUND TO HAVE A BODY TEMPERATURE OF 91.3F (33C) AND REMY HUGGER AND WARM SALINE WAS INITIATED WHICH BROUGHT HER CORE BODY TEMP UP AND HER MENTAL STATUS IMPROVED. Date of Admission Feb 22, 2018 at 21:25 Date Seen by Provider: Feb 23, 2018 Time Seen by Provider: 08:37 I consulted on this patient on 02/23/18 08:34 Attending Physician Rita Garg MD Admitting Physician Rita Garg MD Consult Allergies and Home Medications Allergies Coded Allergies: No Known Drug Allergies (Unverified , 05/18/16) Home Medications Acetaminophen 500 Mg Tablet, 500 MG PO Q6H PRN for PAIN-MILD OR TEMPATURE, ( Reported) Amoxicillin/Potassium Clav 1 Each Tablet, 500 MG PO BID WITH MEALS Prescribed by: RITA GARG on 02/24/18 0929 Budesonide/Formoterol Fumarate 10.2 Gm Hfa.aer.ad, 1 PUFF INH BID, (Reported) Calcium Carbonate 500 Mg Tablet, 1,000 MG PO DAILY PRN for NAUSEA/VOMITING/ UPSET STOMACH, (Reported) Carvedilol 6.25 Mg Tablet, 12.5 MG PO BID, (Reported) TAKES 2 (6.25 MG) TABLETS Cholecalciferol (Vitamin D3) 2,000 Unit Capsule, 2,000 UNIT PO DAILY, (Reported) Clopidogrel Bisulfate 75 Mg Tablet, 75 MG PO DAILY, (Reported) Cyanocobalamin (Vitamin B-12) 500 Mcg Tablet, 500 MCG PO DAILY, (Reported) Diclofenac Sodium 100 Gm Gel..gram., 2 GM TOP QID, (Reported) APPLY TO LT HAND/THUMB Ferrous Sulfate 325 Mg Tablet, 325 MG PO DAILY, (Reported) Fluticasone Propionate 16 Gm [place].susp, 1 SPRAY NS BID PRN for ALLERGIES, ( Reported) Furosemide 20 Mg Tablet, 20 MG PO DAILY, (Reported) Gentamicin Sulfate 3.5 Gm Oint...g., OS TID PRN for IRRITATION, (Reported) APPLY 1/2 INCH INTO LT EYE Guaifenesin 600 Mg Tab.er.12h, 600 MG PO BID, (Reported) Insulin Aspart 300 Units/3 Ml Solution, SQ ACHS, (Reported) 251-300 = 5 UNITS 301-350 = 8 UNITS 351-400 = 10 UNITS Insulin Aspart 300 Units/3 Ml Solution, 8 UNITS SQ 1200, (Reported) Insulin Glargine,Hum.rec.anlog 100 Unit/1 Ml Insuln.pen, 25 UNITS SQ HS, ( Reported) Levothyroxine Sodium 100 Mcg Tablet, 100 MCG PO DAILY, (Reported) Loratadine 10 Mg Tablet, 10 MG PO DAILY PRN for ALLERGIES, (Reported) Losartan Potassium 50 Mg Tablet, 50 MG PO DAILY, (Reported) Multivitamin 1 Each Tablet, 1 TAB PO DAILY, (Reported) [place] 3 Polyunsat Fatty Acids 1,000 Mg Cap, 2,000 MG PO DAILY, (Reported) TAKES 2 (1,000 MG) CAPSULES Rosuvastatin Calcium 40 Mg Tablet, 40 MG PO HS, (Reported) Sodium Bicarbonate 650 Mg Tablet, 650 MG PO BID, (Reported) Sodium Chloride 30 Ml [place], 2 SPRAYS NS UD PRN for DRY NOSE, (Reported) Patient Home Medication List Home Medication List Reviewed: Yes Past Dtjshve-Hvyskv-Hnpxac Hx Patient Social History Marrital Status: Living Status: LIVES AT [facility] Employed/Student: retired Alcohol Use: Denies Use Recreational Drug Use: No Smoking Status: Never a Smoker Former Smoker, Quit: Apr 10, 1995 2nd Hand Smoke Exposure: No Physical Abuse Screen: No Sexual Abuse: No Recent Foreign Travel: No Contact w/other who traveled: No Recent Hopitalizations: No Recent Infectious Disease Expo: No Immunizations Up To Date Tetanus Booster (TDap): More than 5yrs Date of Pneumonia Vaccine: May 18, 2014 Date of Influenza Vaccine: Apr 29, 2014 Seasonal Allergies Seasonal Allergies: Yes Surgeries Yes Adenoidectomy, Nose, Tonsillectomy Respiratory No Currently Using CPAP: No Currently Using BIPAP: No Cardiovascular Yes Coronary Artery Disease Neurological Yes Reproductive System Hx Reproductive Disorders: No Sexually Transmitted Disease: No HIV/AIDS: No Genitourinary Yes Renal Failure Gastrointestinal Yes Gastroesophageal Reflux Musculoskeletal No Endocrine History of Endocrine Disorders: Yes Endocrine Disorders: Diabetes, Insulin dep, Hypothyroidsim HEENT HEENT Disorders: Cataract Loss of Vision: Denies Hearing Impairment: Hard of Hearing Cancer No Psychosocial History of Psychiatric Problem: No Integumentary History of Skin or Integumenta: No Blood Transfusions History of Blood Disorders: Yes Adverse Reaction to a Blood Tr: No Reviewed Nursing Assessment Reviewed/Agree w Nursing PMH: Yes Family Medical History Significant Family History: Heart Disease, Hypertension Family Hx: Alzheimer's disease 19 MOTHER ( AT AGE 97) Congenital heart disease 19 MOTHER (HAD ENLARGED HEART) Diabetes mellitus 19 MOTHER (BORDERLINE DM) GRANDMOTHER FH: lung cancer 19 FATHER ( WITH LUNG CANCER) Constitutional: No chills, No fever; malaise, weakness EENTM: No hoarseness, No mouth pain, No throat pain Respiratory: No cough, No dyspnea on exertion, No short of breath Cardiovascular: No chest pain, No palpitations Gastrointestinal: No abdominal pain, No constipation, No diarrhea Genitourinary: no symptoms reported Musculoskeletal: no symptoms reported Skin: no symptoms reported Psychiatric/Neurological: Denies Anxiety, Denies Depressed All Other Systems Reviewed Negative Unless Noted: Yes Physical Exam Vital Signs Capillary Refill : Greater Than 3 Seconds Height, Weight, BMI Height: 5', 6.00" Weight: 160lbs 0.0oz, [id number] Method:Estimated ,25.8BMI General Appearance: No Apparent Distress, WD/WN HEENT: PERRL/EOMI, Pharynx Normal Neck: Full Range of Motion, Supple Respiratory: Chest Non Tender, Lungs Clear, Normal Breath Sounds, No Accessory Muscle Use Cardiovascular: Regular Rate, Rhythm, No Edema Gastrointestinal: Normal Bowel Sounds, Non Tender, Soft Rectal: Deferred Back: Normal Inspection Extremity: Normal Capillary Refill, No Calf Tenderness, Pedal Edema Neurologic/Psychiatric: Alert, Other (ORIENTED TO PERSON, PLACE) Skin: Normal Color, Warm/Dry Lymphatic: No Adenopathy Assessment/Plan Assessment and Plan HYPOGLYCEMIA HYPOTHERMIA ACUTE ON CHRONIC RENAL FAILURE CHRONIC DIABETES MELLITUS HYPERTENSION CORONARY ARTERY DISEASE DEMENTIA HYPOTHYROID HYPERLIPIDEMIA ELEVATED BNP ANEMIA HYPOGLYCEMIA - IMPROVED WITH GLUCAGON AND IV FLUIDS HYPOTHERMIA - DUE TO SEVERE HYPOGLYCEMIA - AT THIS TIME NO EVIDENCE OF POSITIVE CULTURES/SEPSIS. ACUTE ON CHRONIC RENAL FAILURE - MONITOR - HYDRATION SHOULD HELP ACUTE COMPONENT OF RENAL FAILURE CHRONIC DIABETES MELLITUS - DISCUSSED WITH PT AND HER DTRS NEED TO ASSURE SHE IS EATING WHEN GETTING INSULIN. 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 HYPOTHYROID - RESUME HOME MEDICATIONS HYPERLIPIDEMIA - RESUME STATIN THERAPY ELEVATED BNP ANEMIA - DUE TO ANEMIA OF CHRONIC DISEASE -CHRONIC RENAL DISEASE Admission Diagnosis HYPOGLYCEMIA HYPOTHERMIA ACUTE ON CHRONIC RENAL FAILURE CHRONIC DIABETES MELLITUS HYPERTENSION CORONARY ARTERY DISEASE DEMENTIA HYPOTHYROID HYPERLIPIDEMIA ELEVATED BNP ANEMIA Admission Status: Inpatient Order (span 2 midnights) Reason for Inpatient Admission: PT WILL REQUIRE MORE THAN TWO MIDNIGHTS IN THE HOSPITAL DUE TO NEED FOR STABILIZATION AND FURTHER INVESTIGATION INTO ILLNESS INCITING ADMISSION TO THE HOSPITAL Clinical Quality Measures DVT/VTE Risk/Contraindication: Risk Factor Score Per Nursin RFS Level Per Nursing on Admit: 4+=Very High RITA GARG MD Feb 23, 2018 08:40
[2018-02-23] MEDS ORDERED: FLUT16SP22 NS (11:51)
[2018-02-23] MEDS ORDERED: BUDE10.2 INH (11:51)
[2018-02-23] MEDS ORDERED: DICL100G18 TOP (11:51)
[2018-02-23] MEDS ORDERED: CHOL20003 PO (11:51)
[2018-02-23] MEDS ORDERED: LEVO100T7 PO (11:51)
[2018-02-23] MEDS ORDERED: LORA10TA7 PO (11:51)
[2018-02-23] MEDS ORDERED: SODI30SP2 NS (11:51)
[2018-02-23] MEDS ORDERED: ROSU40TA22 PO (11:51)
[2018-02-23] MEDS ORDERED: INSU100I14 SQ (11:51)
[2018-02-23] MEDS ORDERED: CALC500T3 PO (11:51)
[2018-02-23] MEDS ORDERED: GUAI600T43 PO (11:51)
[2018-02-23] MEDS ORDERED: FERR325T18 PO (11:51)
[2018-02-23] MEDS ORDERED: MULT1TAB69 PO (11:51)
[2018-02-23] MEDS ORDERED: SODI650T PO (11:51)
[2018-02-23] MEDS ORDERED: LOSA50TA36 PO (12:03)
[2018-02-23] MEDS ORDERED: FURO20TA4 PO (12:03)
[2018-02-23 15:36] VITALS: BP 153/66
[2018-02-23 19:45] VITALS: BP 141/65
[2018-02-23] MEDS ORDERED: QUEtiapine 25 MG (SEROquel) TAB IMMEDIATE RELEASE ONE (22:44)
[2018-02-23] MEDS ORDERED: QUEtiapine 25 MG (SEROquel) TAB IMMEDIATE RELEASE PO SCH (22:45)
[2018-02-24 00:04] VITALS: BP 140/63
[2018-02-24] MEDS: NS IV 1000 ML 1,000 ML IV SCH (03:50)
--- NOTE | 2018-02-24 05:48 | Pulmonary Progress Note ---
Subjective Time Seen by Provider: 06:31 Subjective/Events-last exam PT sleeping. No complications noted. Focused Exam Lactate Level 02/22/18 17:47: Lactic Acid Level 0.75 Exam Exam Vital Signs Date Time Temp Pulse Resp B/P (MAP) Pulse Ox O2 Delivery O2 Flow Rate FiO2 02/24/18 00:04 98.0 85 18 140/63 (88) 96 Room Air 02/23/18 21:00 Room Air 02/23/18 19:45 100.4 84 16 141/65 (90) 97 Room Air 02/23/18 15:36 98.6 82 16 153/66 (95) 98 Room Air 02/23/18 09:00 Room Air 02/23/18 08:00 98 Room Air 02/23/18 07:00 79 02/23/18 07:00 79 I & O 02/24/18 06:59 Intake Total 1850 ml Output Total 1100 ml Balance 750 ml PULEXAM Height: 5', 6.00" Weight: 160lbs 0.0oz, [id number] Method:Estimated ,25.8BMI General Appearance: WD/WN, Moderate Distress HEENT: PERRL/EOMI, Pharynx Normal Neck: Non Tender, Supple Respiratory: No Respiratory Distress, Decreased Breath Sounds Cardiovascular: No Murmur, Bradycardia Capillary Refill: Greater Than 3 Seconds Extremity: Normal Capillary Refill, Non Tender, Pedal Edema (mild edema to bilateral lower extremities) Neurologic/Psychiatric: Other (followsimple commands and answers a few questions but otherwise just moans and reports that she is cold.) Results Lab Laboratory Tests 02/22/18 17:47 02/23/18 03:00 Assessment/Plan Assessment/Plan Sinusitis -- Tm 100.4 last night . No leukocytosis - Augmentin -labs and radiology reviewed. -Hep lock IVF chronic Kidney disease systolic CHF hx with EF 30-35% -Hep lock IVF Hx of dementia Hypoglycemia after insulin EMS BS was 27 -- now resolved Hypothermia-- resolved Bradycardic -- resolved Pt is ok from pulmonary standpoint for discharge. WINNIE MELENDREZ DO Feb 24, 2018 05:48
[2018-02-24 06:07] LABS: BASOPHILS % (AUTO) 1 % (0-10); EOSINOPHILS # (AUTO) 0.1 10^3/uL (0.0-0.3); EOSINOPHILS % (AUTO) 3 % (0-10); HEMATOCRIT 28 % (35-52); HEMOGLOBIN 9.1 G/DL (11.5-16.0); LYMPHOCYTES # (AUTO) 1.5 X 10^3 (1.0-4.0); LYMPHOCYTES % (AUTO) 33 % (12-44); MEAN CORPUSCULAR HEMOGLOBIN 30 PG (25-34); MEAN CORPUSCULAR HGB CONC 32 G/DL (32-36); MEAN CORPUSCULAR VOLUME 93 FL (80-99); MEAN PLATELET VOLUME 9.7 FL (7.4-10.4); MONOCYTES # (AUTO) 0.6 X 10^3 (0.0-1.0); MONOCYTES % (AUTO) 13 % (0-12); NEUTROPHILS # (AUTO) 2.3 X 10^3 (1.8-7.8); NEUTROPHILS % (AUTO) 50 % (42-75); PLATELET COUNT 130 10^3/uL (130-400); RED BLOOD COUNT 3.02 10^6/uL (4.35-5.85); RED CELL DISTRIBUTION WIDTH 18.2 % (10.0-14.5); WHITE BLOOD COUNT 4.5 10^3/uL (4.3-11.0)
[2018-02-24 06:24] LABS: CALCIUM 8.4 MG/DL (8.5-10.1); CREATININE SERUM 2.32 MG/DL (0.60-1.30); MAGNESIUM 1.8 MG/DL (1.8-2.4); PHOSPHORUS 3.6 MG/DL (2.3-4.7); POTASSIUM 4.2 MMOL/L (3.6-5.0)
[2018-02-24] MEDS: inSUlin ASPART (NovoLOG) 1 UNIT/0.01 ML (CHARGE PER UNIT) SC SCH (06:39)
[2018-02-24] MEDS: AUGMENTIN 500 MG TAB (AMOXICILLIN/CLAVULANATE) PO SCH (06:41)
[2018-02-24 08:26] VITALS: BP 148/74
--- NOTE | 2018-02-24 08:48 | Diagnostic Imaging Report ---
INDICATION: Fever. COMPARISON: 02/22/2018. FINDINGS: The lungs have essentially cleared on followup with only minimal right perihilar opacity persisting. No effusion or pneumothorax. The sternal wires are midline. The pacemaker device is stable. IMPRESSION: Clearing of the lungs with no adverse change. Dictated by: Dictated on workstation # [id number]
--- NOTE | 2018-02-24 09:27 | Discharge Summary ---
Diagnosis/Chief Complaint Date of Admission Feb 22, 2018 at 21:25 Date of Discharge Discharge Date: Feb 24, 2018 Discharge Time: 10:00 Admission Diagnosis Admission Diagnosis HYPOGLYCEMIA HYPOTHERMIA ACUTE ON CHRONIC RENAL FAILURE CHRONIC DIABETES MELLITUS HYPERTENSION CORONARY ARTERY DISEASE DEMENTIA HYPOTHYROID HYPERLIPIDEMIA ELEVATED BNP ANEMIA Discharge Diagnosis HYPOGLYCEMIA HYPOTHERMIA ACUTE ON CHRONIC RENAL FAILURE CHRONIC DIABETES MELLITUS HYPERTENSION CORONARY ARTERY DISEASE DEMENTIA HYPOTHYROID HYPERLIPIDEMIA ELEVATED BNP ANEMIA Reason Hospital Visit PT IS A 77 Y/O FEMALE WHO IS KNOWN TO ME FROM CLINIC. SHE HAS HISTORY OF DIABETES MELLITUS - INSULIN DEPENDENT. PT HAS DEMENTIA AND DOES NOT ACCURATELY FOLLOW A DIABETIC DIET. PER ER REPORT, PT WAS HAVING INCREASING CONFUSION AT THE ASSISTED LIVING FACILITY, SHE HAD AN ELEVATED GLUCOSE ON FRIDAY EVENING, WAS GIVEN INSULIN AND HAD WORSENING MENTAL STATUS CHANGES. EMS WAS CALLED AND FOUND HER BLOOD GLUCOSE TO BE 27, SHE WAS GIVEN AN AMP OF D50 AND THEN BROUGHT TO THE HOSPITAL WHERE SHE WAS FOUND TO HAVE A BODY TEMPERATURE OF 91.3F (33C) AND REMY HUGGER AND WARM SALINE WAS INITIATED WHICH BROUGHT HER CORE BODY TEMP UP AND HER MENTAL STATUS IMPROVED. Discharge Summary Discharge Physical Examination Allergies: Coded Allergies: No Known Drug Allergies (Unverified , 05/18/16) Vitals & I&Os General Appearance: Alert, Oriented X3, Cooperative HEENT: Atraumatic, PERRLA Respiratory: Clear to Auscultation Cardiovascular: Regular Rate Abdominal: Normal Bowel Sounds, Soft, No Tenderness Skin: No Breakdown Neuro: Normal Speech, Cranial Nerves 3-12 NL Psych/Mental Status: Mental Status NL, Mood NL Hospital Course HYPOGLYCEMIA HYPOTHERMIA ACUTE ON CHRONIC RENAL FAILURE CHRONIC DIABETES MELLITUS HYPERTENSION CORONARY ARTERY DISEASE DEMENTIA HYPOTHYROID HYPERLIPIDEMIA ELEVATED BNP ANEMIA HYPOGLYCEMIA - IMPROVED WITH GLUCAGON AND IV FLUIDS HYPOTHERMIA - DUE TO SEVERE HYPOGLYCEMIA - AT THIS TIME NO EVIDENCE OF POSITIVE CULTURES/SEPSIS. - CULTURES NEGATIVE - PT WAS NOT SEPTIC, DID NOT HAVE SEPTIC SHOCK ACUTE ON CHRONIC RENAL FAILURE - MONITOR - HYDRATION SHOULD HELP ACUTE COMPONENT OF RENAL FAILURE - DISCUSSED WITH HER DTRS - THEY NEED TO SERIOUSLY DISCUSS THE POSSIBILITY OF THEIR MOM UNDERGOING DIALYSIS - THEY REPORT THAT HER PARTS TECHNICIAN HAS DISCUSSED WITH THEM THE NEED FOR A FISTULA TO BE PLACED FOR [facility]. I HAVE INDICATED THAT IF THEY DO DECIDE ON DIALYSIS, HOLLIS WILL HAVE TO BE MOVED FROM HER CURRENT ASSISTED LIVING FACILITY AND THEY WILL HAVE TO FIND A CORRECTION FOR HER ASSISTED LIVING OFTEN DOES NOT HAVE ENOUGH STAFF TO SUPPORT SOMEONE WHO HAS TO GO TO DIALYSIS. THEY NEED TO CONSIDER QUALITY OF LIFE AND THE FACT THAT HOLLIS WOULD HAVE TO BE AT THE DIALYSIS CENTER FOR AT LEAST 3-4 HOURS AT A TIME UP TO 3 -4 TIMES A WEEK DEPENDING ON HOW SHE DOES WITH DIALYSIS. CHRONIC DIABETES MELLITUS - DISCUSSED WITH PT AND HER DTRS NEED TO ASSURE SHE IS EATING WHEN GETTING INSULIN. 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 Pending Labs Discharge Condition at discharge SYMPTOMS RESOLVED Instructions to patient/family Please see electronic discharge instructions given to patient. Discharge Medications Reviewed and agree with Discharge Medication list on patient's Discharge Instruction sheet Clinical Quality Measures DVT/VTE Risk/Contraindication: Risk Factor Score Per Nursin RFS Level Per Nursing on Admit: 4+=Very High RITA WALTON MD Feb 24, 2018 09:27
[2018-02-24] MEDS ORDERED: AMOX1TAB11 PO (09:29)
--- NOTE | 2018-02-24 09:32 | Discharge Inst-Complex ---
PDI Med Rec & Follow Up Appt. New Medications: Amoxicillin/Potassium Clav (Amox Tr-K Clv 500-125 mg Tab) 1 Each Tablet 500 MG PO BID WITH MEALS, #10 TAB Continued Medications: Acetaminophen (Acetaminophen) 500 Mg Tablet 500 MG PO Q6H PRN for PAIN-MILD OR TEMPATURE, TAB Budesonide/Formoterol Fumarate (Symbicort 160-4.5 Mcg Inhaler) 10.2 Gm Hfa.aer.ad 1 PUFF INH BID, INHALER Calcium Carbonate (Calcium Carbonate) 500 Mg Tablet 1000 MG PO DAILY PRN for NAUSEA/VOMITING/UPSET STOMACH, TAB Carvedilol (Carvedilol) 6.25 Mg Tablet 12.5 MG PO BID, TAB TAKES 2 (6.25 MG) TABLETS Cholecalciferol (Vitamin D3) (Vitamin D3) 2,000 Unit Capsule 2000 UNIT PO DAILY, CAP Clopidogrel Bisulfate (Plavix) 75 Mg Tablet 75 MG PO DAILY, TAB Cyanocobalamin (Vitamin B-12) (Vitamin B-12) 500 Mcg Tablet 500 MCG PO DAILY, TAB Diclofenac Sodium (Voltaren) 100 Gm Gel..gram. 2 GM TOP QID, EA APPLY TO LT HAND/THUMB Ferrous Sulfate (Ferrous Sulfate) 325 Mg Tablet 325 MG PO DAILY, TAB Fluticasone Propionate (Fluticasone Propionate) 16 Gm [place].susp 1 SPRAY NS BID PRN for ALLERGIES, EA Furosemide (Furosemide) 20 Mg Tablet 20 MG PO DAILY, TAB Gentamicin Sulfate (Gentak) 3.5 Gm Oint...g. OS TID PRN for IRRITATION, TUBE APPLY 1/2 INCH INTO LT EYE Guaifenesin (Mucinex) 600 Mg Tab.er.12h 600 MG PO BID, TAB Insulin Aspart (Novolog Flexpen) 300 Units/3 Ml Solution SQ ACHS for SLIDING SCALE, EA 251-300 = 5 UNITS 301-350 = 8 UNITS 351-400 = 10 UNITS Insulin Aspart (Novolog Flexpen) 300 Units/3 Ml Solution 8 UNITS SQ 1200, EA Insulin Glargine,Hum.rec.anlog (Lantus Solostar) 100 Unit/1 Ml Insuln.pen 25 UNITS SQ HS, EA Levothyroxine Sodium (Levothyroxine Sodium) 100 Mcg Tablet 100 MCG PO DAILY, TAB Loratadine (Loratadine) 10 Mg Tablet 10 MG PO DAILY PRN for ALLERGIES, TAB Losartan Potassium (Losartan Potassium) 50 Mg Tablet 50 MG PO DAILY, TAB Multivitamin (Multivitamins) 1 Each Tablet 1 TAB PO DAILY, TAB [place] 3 Polyunsat Fatty Acids (Fish Oil 1,000 mg Capsule) 1,000 Mg Cap 2000 MG PO DAILY, CAP TAKES 2 (1,000 MG) CAPSULES Rosuvastatin Calcium (Rosuvastatin Calcium) 40 Mg Tablet 40 MG PO HS, TAB Sodium Bicarbonate (Sodium Bicarbonate) 650 Mg Tablet 650 MG PO BID, TAB Sodium Chloride (Saline Nasal [place]) 30 Ml [place] 2 SPRAYS NS UD PRN for DRY NOSE, SPRAY Prescription: Transmitted to Pharmacy Activity, Diet and PDI Resume Normal Activity: Yes Discharge Diet: Regular Diet Drink 6-8 Glasses of Fluid/Day: Yes Symptoms to Reoprt to : Appetite Changes, Diarrhea(Persistant) For Problems or Questions: Contact Your Physician, Go to Emergency Room RITA WALTON MD Feb 24, 2018 09:32
[2018-02-24 10:39] VITALS: BP 148/74
== END 2018-02-24 10:23 | DRG 922 ==
LOC: EDUNIT# 17:38 → ER 17:39 → ICU 21:25 → 4TH 02-23 09:35
PROVIDERS: ADMIT Internal Medicine; ATTEND Family Medicine
DX: T68.XXXA Hypothermia, initial encounter (principal); J18.9 Pneumonia, unspecified organism; I13.0 Hypertensive heart and chronic kidney disease with heart failure and stage 1 through stage 4 chronic kidney disease, or unspecified chronic kidney disease; E11.649 Type 2 diabetes mellitus with hypoglycemia without coma; N17.9 Acute kidney failure, unspecified; R00.1 Bradycardia, unspecified; I50.20 Unspecified systolic (congestive) heart failure; N18.9 Chronic kidney disease, unspecified; E03.9 Hypothyroidism, unspecified; I25.10 Atherosclerotic heart disease of native coronary artery without angina pectoris; J01.90 Acute sinusitis, unspecified; F03.90 Unspecified dementia, unspecified severity, without behavioral disturbance, psychotic disturbance, mood disturbance, and anxiety; K21.9 Gastro-esophageal reflux disease without esophagitis; J30.2 Other seasonal allergic rhinitis; E78.5 Hyperlipidemia, unspecified; D64.9 Anemia, unspecified; I44.7 Left bundle-branch block, unspecified; I44.0 Atrioventricular block, first degree; H91.90 Unspecified hearing loss, unspecified ear; Z79.4 Long term (current) use of insulin; Z87.891 Personal history of nicotine dependence
CPT/HCPCS: 36415; 51702; 70450; 71045; 71250; 74176; 80048; 80053; 81000; 82150; 82962; 83605; 83690; 83735; 83880; 84100; 84443; 84484; 85025; 85610; 85730; 87040; 93005; 94760; 96374

== ENCOUNTER 2018-03-03 10:35 | Outpatient (RCR) | payer MEDICARE, MEDICAID ==
[2017-12-09 14:52] LABS: BASOPHILS # (AUTO) 0.1 10^3/uL (0.0-0.1); BASOPHILS % (AUTO) 1 % (0-10); EOSINOPHILS # (AUTO) 0.1 10^3/uL (0.0-0.3); EOSINOPHILS % (AUTO) 3 % (0-10); HEMATOCRIT 34 % (35-52); HEMOGLOBIN 10.4 G/DL (11.5-16.0); LYMPHOCYTES # (AUTO) 0.9 X 10^3 (1.0-4.0); LYMPHOCYTES % (AUTO) 22 % (12-44); MEAN CORPUSCULAR HEMOGLOBIN 27 PG (25-34); MEAN CORPUSCULAR HGB CONC 30 G/DL (32-36); MEAN CORPUSCULAR VOLUME 90 FL (80-99); MEAN PLATELET VOLUME 10.2 FL (7.4-10.4); MONOCYTES # (AUTO) 0.5 X 10^3 (0.0-1.0); MONOCYTES % (AUTO) 13 % (0-12); NEUTROPHILS # (AUTO) 2.5 X 10^3 (1.8-7.8); NEUTROPHILS % (AUTO) 62 % (42-75); PLATELET COUNT 112 10^3/uL (130-400); RED BLOOD COUNT 3.82 10^6/uL (4.35-5.85)
[2017-12-09 15:21] LABS: ALBUMIN 3.8 GM/DL (3.2-4.5); BILIRUBIN,TOTAL 0.6 MG/DL (0.1-1.0); CALCIUM 8.8 MG/DL (8.5-10.1); CREATININE SERUM 2.6 MG/DL (0.60-1.30); POTASSIUM 5.2 MMOL/L (3.6-5.0); TOTAL PROTEIN 7.5 GM/DL (6.4-8.2)
[2017-12-23 14:40] LABS: BASOPHILS # (AUTO) 0.1 10^3/uL (0.0-0.1); BASOPHILS % (AUTO) 1 % (0-10); EOSINOPHILS # (AUTO) 0.2 10^3/uL (0.0-0.3); EOSINOPHILS % (AUTO) 4 % (0-10); HEMATOCRIT 36 % (35-52); HEMOGLOBIN 11.2 G/DL (11.5-16.0); LYMPHOCYTES # (AUTO) 0.8 X 10^3 (1.0-4.0); LYMPHOCYTES % (AUTO) 21 % (12-44); MEAN CORPUSCULAR HEMOGLOBIN 28 PG (25-34); MEAN CORPUSCULAR HGB CONC 31 G/DL (32-36); MEAN CORPUSCULAR VOLUME 90 FL (80-99); MEAN PLATELET VOLUME 10.4 FL (7.4-10.4); MONOCYTES # (AUTO) 0.5 X 10^3 (0.0-1.0); MONOCYTES % (AUTO) 14 % (0-12); NEUTROPHILS # (AUTO) 2.3 X 10^3 (1.8-7.8); NEUTROPHILS % (AUTO) 60 % (42-75); PLATELET COUNT 88 10^3/uL (130-400); RED BLOOD COUNT 3.98 10^6/uL (4.35-5.85); RED CELL DISTRIBUTION WIDTH 21.1 % (10.0-14.5); WHITE BLOOD COUNT 3.8 10^3/uL (4.3-11.0)
[2018-01-06 15:26] LABS: BASOPHILS # (AUTO) 0.1 10^3/uL (0.0-0.1); BASOPHILS % (AUTO) 1 % (0-10); EOSINOPHILS # (AUTO) 0.2 10^3/uL (0.0-0.3); EOSINOPHILS % (AUTO) 4 % (0-10); HEMATOCRIT 36 % (35-52); HEMOGLOBIN 11.4 G/DL (11.5-16.0); LYMPHOCYTES # (AUTO) 1.2 X 10^3 (1.0-4.0); LYMPHOCYTES % (AUTO) 28 % (12-44); MEAN CORPUSCULAR HEMOGLOBIN 28 PG (25-34); MEAN CORPUSCULAR HGB CONC 32 G/DL (32-36); MEAN CORPUSCULAR VOLUME 89 FL (80-99); MEAN PLATELET VOLUME 10.5 FL (7.4-10.4); MONOCYTES # (AUTO) 0.5 X 10^3 (0.0-1.0); MONOCYTES % (AUTO) 12 % (0-12); NEUTROPHILS # (AUTO) 2.3 X 10^3 (1.8-7.8); NEUTROPHILS % (AUTO) 55 % (42-75); PLATELET COUNT 107 10^3/uL (130-400); RED BLOOD COUNT 4.07 10^6/uL (4.35-5.85); RED CELL DISTRIBUTION WIDTH 19.2 % (10.0-14.5); WHITE BLOOD COUNT 4.2 10^3/uL (4.3-11.0)
[2018-01-20 14:45] LABS: BASOPHILS % (AUTO) 1 % (0-10); EOSINOPHILS # (AUTO) 0.1 10^3/uL (0.0-0.3); EOSINOPHILS % (AUTO) 2 % (0-10); HEMATOCRIT 32 % (35-52); HEMOGLOBIN 9.9 G/DL (11.5-16.0); LYMPHOCYTES # (AUTO) 1.3 X 10^3 (1.0-4.0); LYMPHOCYTES % (AUTO) 28 % (12-44); MEAN CORPUSCULAR HEMOGLOBIN 28 PG (25-34); MEAN CORPUSCULAR HGB CONC 31 G/DL (32-36); MEAN CORPUSCULAR VOLUME 89 FL (80-99); MEAN PLATELET VOLUME 10.8 FL (7.4-10.4); MONOCYTES # (AUTO) 0.6 X 10^3 (0.0-1.0); MONOCYTES % (AUTO) 13 % (0-12); NEUTROPHILS # (AUTO) 2.8 X 10^3 (1.8-7.8); NEUTROPHILS % (AUTO) 57 % (42-75); PLATELET COUNT 120 10^3/uL (130-400); RED BLOOD COUNT 3.57 10^6/uL (4.35-5.85); RED CELL DISTRIBUTION WIDTH 18.3 % (10.0-14.5); WHITE BLOOD COUNT 4.8 10^3/uL (4.3-11.0)
[2018-01-20 15:11] LABS: ALBUMIN 3.8 GM/DL (3.2-4.5); BILIRUBIN,TOTAL 0.5 MG/DL (0.1-1.0); CALCIUM 8.9 MG/DL (8.5-10.1); CREATININE SERUM 2.78 MG/DL (0.60-1.30); POTASSIUM 4.2 MMOL/L (3.6-5.0); TOTAL PROTEIN 7.5 GM/DL (6.4-8.2)
[2018-02-03 10:37] LABS: BASOPHILS % (AUTO) 1 % (0-10); EOSINOPHILS # (AUTO) 0.1 10^3/uL (0.0-0.3); EOSINOPHILS % (AUTO) 2 % (0-10); HEMATOCRIT 35 % (35-52); HEMOGLOBIN 11.2 G/DL (11.5-16.0); LYMPHOCYTES # (AUTO) 0.8 X 10^3 (1.0-4.0); LYMPHOCYTES % (AUTO) 17 % (12-44); MEAN CORPUSCULAR HEMOGLOBIN 29 PG (25-34); MEAN CORPUSCULAR HGB CONC 32 G/DL (32-36); MEAN CORPUSCULAR VOLUME 91 FL (80-99); MEAN PLATELET VOLUME 9.9 FL (7.4-10.4); MONOCYTES # (AUTO) 0.5 X 10^3 (0.0-1.0); MONOCYTES % (AUTO) 10 % (0-12); NEUTROPHILS # (AUTO) 3.4 X 10^3 (1.8-7.8); NEUTROPHILS % (AUTO) 71 % (42-75); PLATELET COUNT 121 10^3/uL (130-400); WHITE BLOOD COUNT 4.7 10^3/uL (4.3-11.0)
[2018-02-17 10:28] LABS: BASOPHILS # (AUTO) 0.1 10^3/uL (0.0-0.1); BASOPHILS % (AUTO) 1 % (0-10); EOSINOPHILS # (AUTO) 0.1 10^3/uL (0.0-0.3); EOSINOPHILS % (AUTO) 2 % (0-10); HEMATOCRIT 32 % (35-52); HEMOGLOBIN 10.2 G/DL (11.5-16.0); LYMPHOCYTES # (AUTO) 1.3 X 10^3 (1.0-4.0); LYMPHOCYTES % (AUTO) 25 % (12-44); MEAN CORPUSCULAR HEMOGLOBIN 29 PG (25-34); MEAN CORPUSCULAR HGB CONC 32 G/DL (32-36); MEAN CORPUSCULAR VOLUME 91 FL (80-99); MONOCYTES # (AUTO) 0.5 X 10^3 (0.0-1.0); MONOCYTES % (AUTO) 11 % (0-12); NEUTROPHILS # (AUTO) 3.1 X 10^3 (1.8-7.8); NEUTROPHILS % (AUTO) 62 % (42-75); PLATELET COUNT 119 10^3/uL (130-400); RED BLOOD COUNT 3.54 10^6/uL (4.35-5.85); RED CELL DISTRIBUTION WIDTH 17.7 % (10.0-14.5)
[~2018-03-03 10:35] MED LIST changes: +AMOX1TAB11 PO; +BUDE10.2 INH; +CALC500T3 PO; +CHOL20003 PO; +DARBEPOETIN 100 MCG/ML (ARANESP) 1 ML VIAL SC SCH; +DARBEPOETIN 60 MCG/ML ARANESP (CANCER CTR) INJ SCH; +DICL100G18 TOP; +FERR325T18 PO; +FLUT16SP22 NS; +FURO20TA4 PO; +GUAI600T43 PO; +LEVO100T7 PO; +LORA10TA7 PO; +LOSA50TA36 PO; +MULT1TAB69 PO; +ROSU40TA22 PO; +SODI30SP2 NS; +SODI650T PO
[2018-03-03 10:48] LABS: BASOPHILS # (AUTO) 0.1 10^3/uL (0.0-0.1); BASOPHILS % (AUTO) 1 % (0-10); EOSINOPHILS # (AUTO) 0.1 10^3/uL (0.0-0.3); EOSINOPHILS % (AUTO) 3 % (0-10); HEMATOCRIT 31 % (35-52); HEMOGLOBIN 9.8 G/DL (11.5-16.0); LYMPHOCYTES # (AUTO) 1.3 X 10^3 (1.0-4.0); LYMPHOCYTES % (AUTO) 25 % (12-44); MEAN CORPUSCULAR HEMOGLOBIN 29 PG (25-34); MEAN CORPUSCULAR HGB CONC 31 G/DL (32-36); MEAN CORPUSCULAR VOLUME 93 FL (80-99); MEAN PLATELET VOLUME 10.3 FL (7.4-10.4); MONOCYTES # (AUTO) 0.6 X 10^3 (0.0-1.0); MONOCYTES % (AUTO) 12 % (0-12); NEUTROPHILS % (AUTO) 59 % (42-75); PLATELET COUNT 127 10^3/uL (130-400); RED BLOOD COUNT 3.38 10^6/uL (4.35-5.85); RED CELL DISTRIBUTION WIDTH 17.3 % (10.0-14.5)
== END 2018-03-09 | disposition home or self-care (01) ==
LOC: ONC 10:35
PROVIDERS: ATTEND Internal Medicine Hematology & Oncology
DX: N18.4 Chronic kidney disease, stage 4 (severe) (principal); D63.1 Anemia in chronic kidney disease; I12.9 Hypertensive chronic kidney disease with stage 1 through stage 4 chronic kidney disease, or unspecified chronic kidney disease; E11.22 Type 2 diabetes mellitus with diabetic chronic kidney disease; E03.9 Hypothyroidism, unspecified; I25.10 Atherosclerotic heart disease of native coronary artery without angina pectoris; Z79.899 Other long term (current) drug therapy; Z95.1 Presence of aortocoronary bypass graft; R80.9 Proteinuria, unspecified; E87.2 Acidosis; R60.9 Edema, unspecified
CPT/HCPCS: 36415; 80053; 80069; 81000; 82306; 82570; 82728; 83540; 83970; 84100; 84156; 85025; 85027; 96372

== ENCOUNTER → 2018-03-17 | Outpatient (CLI) | payer MEDICARE, MEDICAID ==
[~2018-03-17] MED LIST changes: -DARBEPOETIN 100 MCG/ML (ARANESP) 1 ML VIAL SC SCH; -DARBEPOETIN 60 MCG/ML ARANESP (CANCER CTR) INJ SCH
[2018-03-17 15:08] LABS: HEMOGLOBIN 10.6 G/DL (11.5-16.0); MEAN PLATELET VOLUME 10.2 FL (7.4-10.4); RED BLOOD COUNT 3.54 10^6/uL (4.35-5.85); WHITE BLOOD COUNT 4.8 10^3/uL (4.3-11.0)
[2018-03-17 15:48] LABS: ALBUMIN 3.7 GM/DL (3.2-4.5); CALCIUM 8.8 MG/DL (8.5-10.1); CREATININE SERUM 2.59 MG/DL (0.60-1.30); PHOSPHORUS 4.2 MG/DL (2.3-4.7); POTASSIUM 4.8 MMOL/L (3.6-5.0)
[2018-03-17 16:27] LABS: BILIRUBIN,URINE NEGATIVE (NEGATIVE); CLARITY,URINE CLEAR; COLOR,URINE YELLOW; GLUCOSE, URINE (UA) NEGATIVE (NEGATIVE); KETONES,URINE NEGATIVE (NEGATIVE); LEUKOCYTE ESTERASE ,URINE NEGATIVE (NEGATIVE); NITRITE,URINE NEGATIVE (NEGATIVE); PH,URINE 7 (5-9); PROTEIN,URINE 2+ (NEGATIVE); UROBILINOGEN,URINE NORMAL (NORMAL)
[2018-03-17 16:39] LABS: SQUAMOUS EPITHELIAL CELL,UR RARE /HPF
== END ==
LOC: LAB 14:45
PROVIDERS: ATTEND Allergy & Immunology Allergy
DX: I12.9 Hypertensive chronic kidney disease with stage 1 through stage 4 chronic kidney disease, or unspecified chronic kidney disease (principal); N18.4 Chronic kidney disease, stage 4 (severe); R80.9 Proteinuria, unspecified; D64.9 Anemia, unspecified; I25.10 Atherosclerotic heart disease of native coronary artery without angina pectoris; Z95.1 Presence of aortocoronary bypass graft; E11.9 Type 2 diabetes mellitus without complications; E87.2 Acidosis; R60.9 Edema, unspecified; E61.1 Iron deficiency; E87.5 Hyperkalemia
CPT/HCPCS: 36415; 80069; 81000; 82306; 82570; 83970; 84100; 84156; 84550

== ENCOUNTER 2018-05-12 14:18 | Outpatient (RCR) | payer MEDICARE, MEDICAID ==
[2018-04-14 16:21] LABS: BASOPHILS % (AUTO) 1 % (0-10); EOSINOPHILS # (AUTO) 0.2 10^3/uL (0.0-0.3); EOSINOPHILS % (AUTO) 3 % (0-10); HEMATOCRIT 34 % (35-52); HEMOGLOBIN 10.9 G/DL (11.5-16.0); LYMPHOCYTES # (AUTO) 2.1 X 10^3 (1.0-4.0); LYMPHOCYTES % (AUTO) 36 % (12-44); MEAN CORPUSCULAR HEMOGLOBIN 31 PG (25-34); MEAN CORPUSCULAR HGB CONC 32 G/DL (32-36); MEAN CORPUSCULAR VOLUME 96 FL (80-99); MEAN PLATELET VOLUME 10.5 FL (7.4-10.4); MONOCYTES # (AUTO) 0.7 X 10^3 (0.0-1.0); MONOCYTES % (AUTO) 12 % (0-12); NEUTROPHILS # (AUTO) 2.9 X 10^3 (1.8-7.8); NEUTROPHILS % (AUTO) 49 % (42-75); PLATELET COUNT 102 10^3/uL (130-400); RED BLOOD COUNT 3.53 10^6/uL (4.35-5.85); RED CELL DISTRIBUTION WIDTH 15.4 % (10.0-14.5); WHITE BLOOD COUNT 5.9 10^3/uL (4.3-11.0)
[2018-04-29 11:01] LABS: BASOPHILS % (AUTO) 1 % (0-10); EOSINOPHILS # (AUTO) 0.1 10^3/uL (0.0-0.3); EOSINOPHILS % (AUTO) 2 % (0-10); HEMATOCRIT 35 % (35-52); LYMPHOCYTES # (AUTO) 1.9 X 10^3 (1.0-4.0); LYMPHOCYTES % (AUTO) 32 % (12-44); MEAN CORPUSCULAR HEMOGLOBIN 30 PG (25-34); MEAN CORPUSCULAR HGB CONC 31 G/DL (32-36); MEAN CORPUSCULAR VOLUME 96 FL (80-99); MEAN PLATELET VOLUME 10.1 FL (7.4-10.4); MONOCYTES # (AUTO) 0.6 X 10^3 (0.0-1.0); MONOCYTES % (AUTO) 10 % (0-12); NEUTROPHILS # (AUTO) 3.4 X 10^3 (1.8-7.8); NEUTROPHILS % (AUTO) 56 % (42-75); PLATELET COUNT 117 10^3/uL (130-400); RED BLOOD COUNT 3.67 10^6/uL (4.35-5.85); RED CELL DISTRIBUTION WIDTH 14.9 % (10.0-14.5); WHITE BLOOD COUNT 6.1 10^3/uL (4.3-11.0)
[~2018-05-12 14:18] MED LIST changes: +DARBEPOETIN 100 MCG/ML (ARANESP) 1 ML VIAL SC SCH; -LOSA100T28 PO; +LOSA100T8 PO; -LOSA50TA36 PO; +LOSA50TA7 PO
[2018-05-12 14:46] LABS: BASOPHILS # (AUTO) 0.1 10^3/uL (0.0-0.1); BASOPHILS % (AUTO) 1 % (0-10); EOSINOPHILS # (AUTO) 0.2 10^3/uL (0.0-0.3); EOSINOPHILS % (AUTO) 3 % (0-10); HEMATOCRIT 33 % (35-52); HEMOGLOBIN 10.2 G/DL (11.5-16.0); LYMPHOCYTES # (AUTO) 2.2 X 10^3 (1.0-4.0); LYMPHOCYTES % (AUTO) 39 % (12-44); MEAN CORPUSCULAR HEMOGLOBIN 30 PG (25-34); MEAN CORPUSCULAR HGB CONC 31 G/DL (32-36); MEAN CORPUSCULAR VOLUME 96 FL (80-99); MEAN PLATELET VOLUME 11.1 FL (7.4-10.4); MONOCYTES # (AUTO) 0.7 X 10^3 (0.0-1.0); MONOCYTES % (AUTO) 11 % (0-12); NEUTROPHILS # (AUTO) 2.6 X 10^3 (1.8-7.8); NEUTROPHILS % (AUTO) 46 % (42-75); PLATELET COUNT 108 10^3/uL (130-400); RED BLOOD COUNT 3.42 10^6/uL (4.35-5.85); RED CELL DISTRIBUTION WIDTH 14.2 % (10.0-14.5); WHITE BLOOD COUNT 5.7 10^3/uL (4.3-11.0)
[2018-05-12 15:03] LABS: ALBUMIN 3.8 GM/DL (3.2-4.5); BILIRUBIN,TOTAL 0.4 MG/DL (0.1-1.0); CALCIUM 8.4 MG/DL (8.5-10.1); CREATININE SERUM 2.9 MG/DL (0.60-1.30); POTASSIUM 4.1 MMOL/L (3.6-5.0)
[2018-05-26 16:18] LABS: BASOPHILS % (AUTO) 1 % (0-10); EOSINOPHILS # (AUTO) 0.1 10^3/uL (0.0-0.3); EOSINOPHILS % (AUTO) 3 % (0-10); HEMATOCRIT 34 % (35-52); HEMOGLOBIN 10.8 G/DL (11.5-16.0); LYMPHOCYTES # (AUTO) 1.9 X 10^3 (1.0-4.0); LYMPHOCYTES % (AUTO) 43 % (12-44); MEAN CORPUSCULAR HEMOGLOBIN 30 PG (25-34); MEAN CORPUSCULAR HGB CONC 32 G/DL (32-36); MEAN CORPUSCULAR VOLUME 94 FL (80-99); MONOCYTES # (AUTO) 0.5 X 10^3 (0.0-1.0); MONOCYTES % (AUTO) 12 % (0-12); NEUTROPHILS # (AUTO) 1.8 X 10^3 (1.8-7.8); NEUTROPHILS % (AUTO) 41 % (42-75); PLATELET COUNT 98 10^3/uL (130-400); RED BLOOD COUNT 3.59 10^6/uL (4.35-5.85); RED CELL DISTRIBUTION WIDTH 14.7 % (10.0-14.5); WHITE BLOOD COUNT 4.3 10^3/uL (4.3-11.0)
== END 2018-05-26 15:54 | disposition home or self-care (01) ==
LOC: ONC 14:18
PROVIDERS: ATTEND Internal Medicine Hematology & Oncology
DX: N18.4 Chronic kidney disease, stage 4 (severe) (principal); D63.1 Anemia in chronic kidney disease; I12.9 Hypertensive chronic kidney disease with stage 1 through stage 4 chronic kidney disease, or unspecified chronic kidney disease; E11.22 Type 2 diabetes mellitus with diabetic chronic kidney disease; E03.9 Hypothyroidism, unspecified; I25.10 Atherosclerotic heart disease of native coronary artery without angina pectoris; Z79.899 Other long term (current) drug therapy; Z95.1 Presence of aortocoronary bypass graft
CPT/HCPCS: 36415; 80053; 85025; 96372

== ENCOUNTER → 2018-06-24 | Outpatient (CLI) | payer MEDICARE, MEDICAID ==
[~2018-06-24] MED LIST changes: -DARBEPOETIN 100 MCG/ML (ARANESP) 1 ML VIAL SC SCH
[2018-06-24 13:57] LABS: HEMOGLOBIN 11.4 G/DL (11.5-16.0); MEAN PLATELET VOLUME 10.7 FL (7.4-10.4); RED BLOOD COUNT 3.89 10^6/uL (4.35-5.85); RED CELL DISTRIBUTION WIDTH 14.3 % (10.0-14.5); WHITE BLOOD COUNT 5.8 10^3/uL (4.3-11.0)
[2018-06-24 14:18] LABS: CALCIUM 9.3 MG/DL (8.5-10.1); CREATININE SERUM 2.58 MG/DL (0.60-1.30); PHOSPHORUS 3.9 MG/DL (2.3-4.7); POTASSIUM 4.5 MMOL/L (3.6-5.0); URIC ACID 7.3 MG/DL (2.6-7.2)
== END ==
LOC: LAB 13:20
PROVIDERS: ATTEND Internal Medicine Nephrology
DX: I12.9 Hypertensive chronic kidney disease with stage 1 through stage 4 chronic kidney disease, or unspecified chronic kidney disease (principal); E11.22 Type 2 diabetes mellitus with diabetic chronic kidney disease; N18.4 Chronic kidney disease, stage 4 (severe); R80.9 Proteinuria, unspecified; D64.9 Anemia, unspecified; I25.10 Atherosclerotic heart disease of native coronary artery without angina pectoris; E87.2 Acidosis; R60.9 Edema, unspecified; E61.1 Iron deficiency; E87.5 Hyperkalemia; Z95.1 Presence of aortocoronary bypass graft
CPT/HCPCS: 80061; 80069; 82306; 83970; 84550

== ENCOUNTER → 2018-07-21 | Outpatient (CLI) | payer MEDICARE, MEDICAID | LOC: LAB 14:42 | PROVIDERS: ATTEND Nurse Practitioner Family | DX: E11.9 Type 2 diabetes mellitus without complications (principal) | CPT/HCPCS: 36415; 83036 ==

== ENCOUNTER 2018-08-19 13:29 | Outpatient (RCR) | payer MEDICARE, MEDICAID ==
[2018-06-10 14:52] LABS: BASOPHILS # (AUTO) 0.1 10^3/uL (0.0-0.1); BASOPHILS % (AUTO) 1 % (0-10); EOSINOPHILS # (AUTO) 0.1 10^3/uL (0.0-0.3); EOSINOPHILS % (AUTO) 3 % (0-10); HEMATOCRIT 38 % (35-52); HEMOGLOBIN 11.8 G/DL (11.5-16.0); LYMPHOCYTES # (AUTO) 1.6 X 10^3 (1.0-4.0); LYMPHOCYTES % (AUTO) 34 % (12-44); MEAN CORPUSCULAR HEMOGLOBIN 30 PG (25-34); MEAN CORPUSCULAR HGB CONC 32 G/DL (32-36); MEAN CORPUSCULAR VOLUME 94 FL (80-99); MEAN PLATELET VOLUME 10.2 FL (7.4-10.4); MONOCYTES # (AUTO) 0.7 X 10^3 (0.0-1.0); MONOCYTES % (AUTO) 14 % (0-12); NEUTROPHILS # (AUTO) 2.3 X 10^3 (1.8-7.8); NEUTROPHILS % (AUTO) 49 % (42-75); PLATELET COUNT 117 10^3/uL (130-400); RED BLOOD COUNT 3.99 10^6/uL (4.35-5.85); RED CELL DISTRIBUTION WIDTH 15.1 % (10.0-14.5); WHITE BLOOD COUNT 4.8 10^3/uL (4.3-11.0)
[2018-06-24 13:56] LABS: BASOPHILS % (AUTO) 1 % (0-10); EOSINOPHILS # (AUTO) 0.2 10^3/uL (0.0-0.3); EOSINOPHILS % (AUTO) 3 % (0-10); HEMATOCRIT 36 % (35-52); HEMOGLOBIN 11.4 G/DL (11.5-16.0); LYMPHOCYTES # (AUTO) 2.3 X 10^3 (1.0-4.0); LYMPHOCYTES % (AUTO) 40 % (12-44); MEAN CORPUSCULAR HEMOGLOBIN 29 PG (25-34); MEAN CORPUSCULAR HGB CONC 31 G/DL (32-36); MEAN CORPUSCULAR VOLUME 93 FL (80-99); MEAN PLATELET VOLUME 10.7 FL (7.4-10.4); MONOCYTES # (AUTO) 0.5 X 10^3 (0.0-1.0); MONOCYTES % (AUTO) 8 % (0-12); NEUTROPHILS # (AUTO) 2.8 X 10^3 (1.8-7.8); NEUTROPHILS % (AUTO) 49 % (42-75); PLATELET COUNT 118 10^3/uL (130-400); RED BLOOD COUNT 3.89 10^6/uL (4.35-5.85); RED CELL DISTRIBUTION WIDTH 14.3 % (10.0-14.5); WHITE BLOOD COUNT 5.8 10^3/uL (4.3-11.0)
[2018-07-07 16:34] LABS: BASOPHILS % (AUTO) 1 % (0-10); EOSINOPHILS # (AUTO) 0.2 10^3/uL (0.0-0.3); EOSINOPHILS % (AUTO) 3 % (0-10); HEMATOCRIT 34 % (35-52); LYMPHOCYTES # (AUTO) 2.3 X 10^3 (1.0-4.0); LYMPHOCYTES % (AUTO) 41 % (12-44); MEAN CORPUSCULAR HEMOGLOBIN 29 PG (25-34); MEAN CORPUSCULAR HGB CONC 32 G/DL (32-36); MEAN CORPUSCULAR VOLUME 92 FL (80-99); MEAN PLATELET VOLUME 10.7 FL (7.4-10.4); MONOCYTES # (AUTO) 0.7 X 10^3 (0.0-1.0); MONOCYTES % (AUTO) 12 % (0-12); NEUTROPHILS # (AUTO) 2.4 X 10^3 (1.8-7.8); NEUTROPHILS % (AUTO) 43 % (42-75); PLATELET COUNT 96 10^3/uL (130-400); RED BLOOD COUNT 3.73 10^6/uL (4.35-5.85); RED CELL DISTRIBUTION WIDTH 14.9 % (10.0-14.5); WHITE BLOOD COUNT 5.6 10^3/uL (4.3-11.0)
[2018-07-21 15:11] LABS: BASOPHILS % (AUTO) 1 % (0-10); EOSINOPHILS # (AUTO) 0.2 10^3/uL (0.0-0.3); EOSINOPHILS % (AUTO) 3 % (0-10); HEMATOCRIT 34 % (35-52); HEMOGLOBIN 10.9 G/DL (11.5-16.0); LYMPHOCYTES # (AUTO) 2.6 X 10^3 (1.0-4.0); LYMPHOCYTES % (AUTO) 36 % (12-44); MEAN CORPUSCULAR HEMOGLOBIN 29 PG (25-34); MEAN CORPUSCULAR HGB CONC 33 G/DL (32-36); MEAN CORPUSCULAR VOLUME 90 FL (80-99); MEAN PLATELET VOLUME 10.7 FL (7.4-10.4); MONOCYTES # (AUTO) 0.7 X 10^3 (0.0-1.0); MONOCYTES % (AUTO) 9 % (0-12); NEUTROPHILS # (AUTO) 3.8 X 10^3 (1.8-7.8); NEUTROPHILS % (AUTO) 52 % (42-75); PLATELET COUNT 137 10^3/uL (130-400); RED BLOOD COUNT 3.71 10^6/uL (4.35-5.85); RED CELL DISTRIBUTION WIDTH 14.7 % (10.0-14.5); WHITE BLOOD COUNT 7.2 10^3/uL (4.3-11.0)
[~2018-08-19 13:29] MED LIST changes: +DARBEPOETIN 100 MCG/ML (ARANESP) 1 ML VIAL SC SCH
[2018-08-19 13:49] LABS: BASOPHILS # (AUTO) 0.1 10^3/uL (0.0-0.1); BASOPHILS % (AUTO) 1 % (0-10); EOSINOPHILS # (AUTO) 0.1 10^3/uL (0.0-0.3); EOSINOPHILS % (AUTO) 2 % (0-10); HEMATOCRIT 30 % (35-52); HEMOGLOBIN 9.6 G/DL (11.5-16.0); LYMPHOCYTES # (AUTO) 2.6 X 10^3 (1.0-4.0); LYMPHOCYTES % (AUTO) 41 % (12-44); MEAN CORPUSCULAR HEMOGLOBIN 30 PG (25-34); MEAN CORPUSCULAR HGB CONC 32 G/DL (32-36); MEAN CORPUSCULAR VOLUME 93 FL (80-99); MEAN PLATELET VOLUME 10.3 FL (7.4-10.4); MONOCYTES # (AUTO) 0.8 X 10^3 (0.0-1.0); MONOCYTES % (AUTO) 12 % (0-12); NEUTROPHILS # (AUTO) 2.8 X 10^3 (1.8-7.8); NEUTROPHILS % (AUTO) 45 % (42-75); PLATELET COUNT 126 10^3/uL (130-400); RED BLOOD COUNT 3.25 10^6/uL (4.35-5.85); RED CELL DISTRIBUTION WIDTH 15.7 % (10.0-14.5); WHITE BLOOD COUNT 6.4 10^3/uL (4.3-11.0)
== END 2018-08-24 | disposition home or self-care (01) ==
LOC: ONC 13:29
PROVIDERS: ATTEND Internal Medicine Hematology & Oncology
DX: N18.4 Chronic kidney disease, stage 4 (severe) (principal); D63.1 Anemia in chronic kidney disease; I12.9 Hypertensive chronic kidney disease with stage 1 through stage 4 chronic kidney disease, or unspecified chronic kidney disease; E11.22 Type 2 diabetes mellitus with diabetic chronic kidney disease; E03.9 Hypothyroidism, unspecified; I25.10 Atherosclerotic heart disease of native coronary artery without angina pectoris; Z79.899 Other long term (current) drug therapy; Z95.1 Presence of aortocoronary bypass graft
CPT/HCPCS: 36415; 85025; 96372

== ENCOUNTER 2018-12-08 14:34 | Outpatient (RCR) | payer MEDICARE, MEDICAID ==
[2018-09-15 15:03] LABS: BASOPHILS # (AUTO) 0.1 10^3/uL (0.0-0.1); BASOPHILS % (AUTO) 1 % (0-10); EOSINOPHILS # (AUTO) 0.1 10^3/uL (0.0-0.3); EOSINOPHILS % (AUTO) 2 % (0-10); HEMATOCRIT 32 % (35-52); HEMOGLOBIN 10.1 G/DL (11.5-16.0); LYMPHOCYTES # (AUTO) 2.3 X 10^3 (1.0-4.0); LYMPHOCYTES % (AUTO) 41 % (12-44); MEAN CORPUSCULAR HEMOGLOBIN 30 PG (25-34); MEAN CORPUSCULAR HGB CONC 32 G/DL (32-36); MEAN CORPUSCULAR VOLUME 95 FL (80-99); MEAN PLATELET VOLUME 10.7 FL (7.4-10.4); MONOCYTES # (AUTO) 0.6 X 10^3 (0.0-1.0); MONOCYTES % (AUTO) 10 % (0-12); NEUTROPHILS # (AUTO) 2.7 X 10^3 (1.8-7.8); NEUTROPHILS % (AUTO) 47 % (42-75); PLATELET COUNT 105 10^3/uL (130-400); RED CELL DISTRIBUTION WIDTH 15.2 % (10.0-14.5); WHITE BLOOD COUNT 5.7 10^3/uL (4.3-11.0)
[2018-09-15 15:22] LABS: ALBUMIN 3.8 GM/DL (3.2-4.5); BILIRUBIN,TOTAL 0.5 MG/DL (0.1-1.0); CREATININE SERUM 3.09 MG/DL (0.60-1.30); POTASSIUM 4.2 MMOL/L (3.6-5.0); TOTAL PROTEIN 7.1 GM/DL (6.4-8.2)
[2018-10-13 09:35] LABS: BASOPHILS % (AUTO) 1 % (0-10); EOSINOPHILS # (AUTO) 0.2 10^3/uL (0.0-0.3); EOSINOPHILS % (AUTO) 4 % (0-10); HEMATOCRIT 29 % (35-52); HEMOGLOBIN 9.3 G/DL (11.5-16.0); LYMPHOCYTES # (AUTO) 1.4 X 10^3 (1.0-4.0); LYMPHOCYTES % (AUTO) 31 % (12-44); MEAN CORPUSCULAR HEMOGLOBIN 30 PG (25-34); MEAN CORPUSCULAR HGB CONC 32 G/DL (32-36); MEAN CORPUSCULAR VOLUME 95 FL (80-99); MEAN PLATELET VOLUME 10.2 FL (7.4-10.4); MONOCYTES # (AUTO) 0.5 X 10^3 (0.0-1.0); MONOCYTES % (AUTO) 11 % (0-12); NEUTROPHILS # (AUTO) 2.4 X 10^3 (1.8-7.8); NEUTROPHILS % (AUTO) 53 % (42-75); PLATELET COUNT 135 10^3/uL (130-400); RED CELL DISTRIBUTION WIDTH 15.3 % (10.0-14.5); WHITE BLOOD COUNT 4.4 10^3/uL (4.3-11.0)
[2018-11-10 14:34] LABS: BASOPHILS # (AUTO) 0.1 10^3/uL (0.0-0.1); BASOPHILS % (AUTO) 1 % (0-10); EOSINOPHILS # (AUTO) 0.2 10^3/uL (0.0-0.3); EOSINOPHILS % (AUTO) 3 % (0-10); HEMATOCRIT 32 % (35-52); HEMOGLOBIN 10.1 G/DL (11.5-16.0); LYMPHOCYTES # (AUTO) 1.9 X 10^3 (1.0-4.0); LYMPHOCYTES % (AUTO) 33 % (12-44); MEAN CORPUSCULAR HEMOGLOBIN 30 PG (25-34); MEAN CORPUSCULAR HGB CONC 32 G/DL (32-36); MEAN CORPUSCULAR VOLUME 93 FL (80-99); MEAN PLATELET VOLUME 10.2 FL (7.4-10.4); MONOCYTES # (AUTO) 0.6 X 10^3 (0.0-1.0); MONOCYTES % (AUTO) 10 % (0-12); NEUTROPHILS % (AUTO) 52 % (42-75); PLATELET COUNT 127 10^3/uL (130-400); RED CELL DISTRIBUTION WIDTH 13.9 % (10.0-14.5); WHITE BLOOD COUNT 5.7 10^3/uL (4.3-11.0)
[~2018-12-08 14:34] MED LIST changes: +LOSA100T57 PO; -LOSA100T8 PO; +LOSA50TA63 PO; -LOSA50TA7 PO
[2018-12-08 14:53] LABS: BASOPHILS % (AUTO) 1 % (0-10); EOSINOPHILS # (AUTO) 0.2 10^3/uL (0.0-0.3); EOSINOPHILS % (AUTO) 3 % (0-10); HEMATOCRIT 25 % (35-52); HEMOGLOBIN 7.8 G/DL (11.5-16.0); LYMPHOCYTES # (AUTO) 1.6 X 10^3 (1.0-4.0); LYMPHOCYTES % (AUTO) 27 % (12-44); MEAN CORPUSCULAR HEMOGLOBIN 30 PG (25-34); MEAN CORPUSCULAR HGB CONC 31 G/DL (32-36); MEAN CORPUSCULAR VOLUME 96 FL (80-99); MEAN PLATELET VOLUME 10.6 FL (7.4-10.4); MONOCYTES # (AUTO) 0.6 X 10^3 (0.0-1.0); MONOCYTES % (AUTO) 11 % (0-12); NEUTROPHILS # (AUTO) 3.4 X 10^3 (1.8-7.8); NEUTROPHILS % (AUTO) 59 % (42-75); PLATELET COUNT 119 10^3/uL (130-400); RED CELL DISTRIBUTION WIDTH 14.9 % (10.0-14.5); WHITE BLOOD COUNT 5.9 10^3/uL (4.3-11.0)
[2018-12-08 15:06] LABS: ALBUMIN 3.6 GM/DL (3.2-4.5); BILIRUBIN,TOTAL 0.1 MG/DL (0.1-1.0); CALCIUM 8.5 MG/DL (8.5-10.1); CREATININE SERUM 2.45 MG/DL (0.60-1.30); POTASSIUM 4.9 MMOL/L (3.6-5.0); TOTAL PROTEIN 6.8 GM/DL (6.4-8.2)
== END 2018-12-14 | disposition home or self-care (01) ==
LOC: ONC 14:34
PROVIDERS: ATTEND Internal Medicine Hematology & Oncology
DX: N18.4 Chronic kidney disease, stage 4 (severe) (principal); D63.1 Anemia in chronic kidney disease; I12.9 Hypertensive chronic kidney disease with stage 1 through stage 4 chronic kidney disease, or unspecified chronic kidney disease; E11.22 Type 2 diabetes mellitus with diabetic chronic kidney disease; E03.9 Hypothyroidism, unspecified; I25.10 Atherosclerotic heart disease of native coronary artery without angina pectoris; Z79.899 Other long term (current) drug therapy; Z95.1 Presence of aortocoronary bypass graft
CPT/HCPCS: 36415; 80053; 85025; 96372

== ENCOUNTER 2018-12-17 13:37 | Emergency (ER) | payer MEDICARE, MEDICAID ==
[~2018-12-17] VITALS: Ht 160 cm; Wt 68.0 kg
[~2018-12-17 13:37] MED LIST changes: -DARBEPOETIN 100 MCG/ML (ARANESP) 1 ML VIAL SC SCH
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
--- NOTE | 2018-12-17 15:09 | Diagnostic Imaging Report ---
CLINICAL INDICATION: Patient fell forward hitting head. EXAM: Head CT without IV contrast. Axial CT scan of the cervical spine with sagittal and coronal reformations. COMPARISON: Head CT without contrast dated 02/22/2018. FINDINGS: HEAD CT: There is a minimal area of hyperdense subarachnoid blood adjacent to the lateral left occipital region seen on axial sequence series 5, image 14. There are no other areas concerning for intracranial blood. Again seen is diffuse brain parenchymal volume loss with the temporal lobes affected the most. There are patchy and focal areas of low-attenuation white matter changes involving both cerebral hemispheres suspected to represent chronic small vessel ischemic disease. There is no hydrocephalus, brain herniation or midline shift. Basal cisterns are unremarkable. There is a small to moderate size area of extracranial soft tissue swelling involving the left posterior aspect of the head. There is no associated skull fracture. There is near complete consolidation of the frontal sinus, large amounts of mucosal thickening and consolidation involving the sphenoid sinus and moderate mucosal thickening involving the ethmoid sinus. There is multi-sinus chronic bony thickening/sclerosis seen. There is a small to moderate amount of consolidation involving the left mastoid air cells. CERVICAL SPINE CT: There is no acute cervical spine fracture. There is grade 1 anterolisthesis of C4 on C5 and C7 on T1 with no pars defect, likely degenerative. There is moderate to severe loss of intervertebral disc height and hypertrophic spurs anteriorly involving the C5-C6 level. The visualized upper lung ortiz are clear. The neck soft tissue shows no significant abnormality. IMPRESSION: 1: There is a minimal sized area of hyperdense subarachnoid blood involving the lateral left occipital lobe region. 2: There is a small to moderate size area of extracranial soft tissue swelling involving the left posterior aspect of the head. There is no skull fracture. 3: Otherwise, there is no other finding of intracranial blood or acute intracranial process. 4: There is cervical spine degenerative disease with no acute fracture. 5: There is grade 1 anterolisthesis of C4 on C5 and C7 on T1 with no pars defect and is likely degenerative. Results of this report were discussed with Dr. Adalberto Valle via the telephone on 12/17/2018 at 1450 hours. Dictated by: Dictated on workstation # [id number]
[2018-12-17 15:48] LABS: BASOPHILS % (AUTO) 1 % (0-10); EOSINOPHILS # (AUTO) 0.2 10^3/uL (0.0-0.3); EOSINOPHILS % (AUTO) 4 % (0-10); HEMATOCRIT 25 % (35-52); HEMOGLOBIN 7.8 G/DL (11.5-16.0); LYMPHOCYTES # (AUTO) 1.1 X 10^3 (1.0-4.0); LYMPHOCYTES % (AUTO) 21 % (12-44); MEAN CORPUSCULAR HEMOGLOBIN 30 PG (25-34); MEAN CORPUSCULAR HGB CONC 31 G/DL (32-36); MEAN CORPUSCULAR VOLUME 97 FL (80-99); MEAN PLATELET VOLUME 10.6 FL (7.4-10.4); MONOCYTES # (AUTO) 0.7 X 10^3 (0.0-1.0); MONOCYTES % (AUTO) 12 % (0-12); NEUTROPHILS # (AUTO) 3.3 X 10^3 (1.8-7.8); NEUTROPHILS % (AUTO) 62 % (42-75); PLATELET COUNT 120 10^3/uL (130-400); RED CELL DISTRIBUTION WIDTH 15.2 % (10.0-14.5); WHITE BLOOD COUNT 5.3 10^3/uL (4.3-11.0)
[2018-12-17 16:07] LABS: INR 1.1 (0.8-1.4); PROTHROMBIN TIME PATIENT 14.6 SEC (12.2-14.7)
[2018-12-17 16:12] LABS: ALBUMIN 3.6 GM/DL (3.2-4.5); BILIRUBIN,TOTAL 0.2 MG/DL (0.1-1.0); CALCIUM 9.1 MG/DL (8.5-10.1); CREATININE SERUM 2.26 MG/DL (0.60-1.30); POTASSIUM 5.3 MMOL/L (3.6-5.0)
[2018-12-17 16:46] VITALS: BP 125/96
== END 2018-12-17 16:47 | disposition home or self-care (01) ==
LOC: EDUNIT# 13:37 → ER 13:38
DX: S06.6X0A Traumatic subarachnoid hemorrhage without loss of consciousness, initial encounter (principal); F03.90 Unspecified dementia, unspecified severity, without behavioral disturbance, psychotic disturbance, mood disturbance, and anxiety; I25.10 Atherosclerotic heart disease of native coronary artery without angina pectoris; K21.9 Gastro-esophageal reflux disease without esophagitis; E11.9 Type 2 diabetes mellitus without complications; E03.9 Hypothyroidism, unspecified; R40.2142 Coma scale, eyes open, spontaneous, at arrival to emergency department; R40.2252 Coma scale, best verbal response, oriented, at arrival to emergency department; R40.2362 Coma scale, best motor response, obeys commands, at arrival to emergency department; Z82.49 Family history of ischemic heart disease and other diseases of the circulatory system; Z80.1 Family history of malignant neoplasm of trachea, bronchus and lung; Z79.4 Long term (current) use of insulin; Z87.891 Personal history of nicotine dependence; Z90.89 Acquired absence of other organs; Z79.51 Long term (current) use of inhaled steroids; W18.30XA Fall on same level, unspecified, initial encounter
CPT/HCPCS: 36415; 70450; 72125; 80053; 82962; 85025; 85610; 85730

== ENCOUNTER → 2019-01-03 | Outpatient (CLI) | payer MEDICARE, MEDICAID ==
--- NOTE | 2019-01-03 14:02 | Diagnostic Imaging Report ---
INDICATION: Left hip pain. No known injury TECHNIQUE: 2 views of the left hip. CORRELATION STUDY: None FINDINGS: Images of the hip demonstrate no evidence for acute fracture. Alignment is anatomic. The femoral head acetabular relationship is unremarkable. The bony trabecular pattern is intact. Vascular calcification present. IMPRESSION: 1. Negative for acute bony abnormality of the left hip. Dictated by: Dictated on workstation # [id number]
== END ==
LOC: RAD 13:37
PROVIDERS: ATTEND Family Medicine
DX: M25.552 Pain in left hip (principal)
CPT/HCPCS: 73502

== ENCOUNTER 2019-01-13 10:21 | Outpatient (RCR) | payer MEDICARE, MEDICAID ==
[2018-12-30 15:03] LABS: BASOPHILS % (AUTO) 1 % (0-10); EOSINOPHILS # (AUTO) 0.2 10^3/uL (0.0-0.3); EOSINOPHILS % (AUTO) 4 % (0-10); HEMATOCRIT 26 % (35-52); HEMOGLOBIN 7.9 G/DL (11.5-16.0); LYMPHOCYTES # (AUTO) 1.7 X 10^3 (1.0-4.0); LYMPHOCYTES % (AUTO) 29 % (12-44); MEAN CORPUSCULAR HEMOGLOBIN 29 PG (25-34); MEAN CORPUSCULAR HGB CONC 31 G/DL (32-36); MEAN CORPUSCULAR VOLUME 94 FL (80-99); MEAN PLATELET VOLUME 10.6 FL (7.4-10.4); MONOCYTES # (AUTO) 0.6 X 10^3 (0.0-1.0); MONOCYTES % (AUTO) 10 % (0-12); NEUTROPHILS # (AUTO) 3.3 X 10^3 (1.8-7.8); NEUTROPHILS % (AUTO) 56 % (42-75); PLATELET COUNT 111 10^3/uL (130-400); RED CELL DISTRIBUTION WIDTH 14.6 % (10.0-14.5); WHITE BLOOD COUNT 5.8 10^3/uL (4.3-11.0)
[~2019-01-13 10:21] MED LIST changes: -CALC500T3 PO; +CALC500T64 PO; -CYAN500T2 PO; +CYAN500T62 PO; +DARBEPOETIN 100 MCG/ML (ARANESP) 1 ML VIAL SC SCH; -ROSU40TA22 PO; +ROSU40TA23 PO
[2019-01-13 10:37] LABS: BASOPHILS % (AUTO) 1 % (0-10); EOSINOPHILS # (AUTO) 0.2 10^3/uL (0.0-0.3); EOSINOPHILS % (AUTO) 4 % (0-10); HEMATOCRIT 27 % (35-52); HEMOGLOBIN 8.5 G/DL (11.5-16.0); LYMPHOCYTES # (AUTO) 1.3 X 10^3 (1.0-4.0); LYMPHOCYTES % (AUTO) 20 % (12-44); MEAN CORPUSCULAR HEMOGLOBIN 29 PG (25-34); MEAN CORPUSCULAR HGB CONC 31 G/DL (32-36); MEAN CORPUSCULAR VOLUME 93 FL (80-99); MEAN PLATELET VOLUME 10.1 FL (7.4-10.4); MONOCYTES # (AUTO) 0.6 X 10^3 (0.0-1.0); MONOCYTES % (AUTO) 10 % (0-12); NEUTROPHILS # (AUTO) 4.2 X 10^3 (1.8-7.8); NEUTROPHILS % (AUTO) 66 % (42-75); PLATELET COUNT 149 10^3/uL (130-400); RED CELL DISTRIBUTION WIDTH 14.8 % (10.0-14.5); WHITE BLOOD COUNT 6.4 10^3/uL (4.3-11.0)
[2019-02-16] MEDS ORDERED: CEPH-507 PO (19:15)
== END 2019-03-30 | disposition home or self-care (01) ==
LOC: ONC 10:21
PROVIDERS: ATTEND Internal Medicine Hematology & Oncology
DX: N18.4 Chronic kidney disease, stage 4 (severe) (principal); D63.1 Anemia in chronic kidney disease; I12.9 Hypertensive chronic kidney disease with stage 1 through stage 4 chronic kidney disease, or unspecified chronic kidney disease; E11.22 Type 2 diabetes mellitus with diabetic chronic kidney disease; E03.9 Hypothyroidism, unspecified; I25.10 Atherosclerotic heart disease of native coronary artery without angina pectoris; Z79.899 Other long term (current) drug therapy; Z95.1 Presence of aortocoronary bypass graft
CPT/HCPCS: 36415; 85025; 96372

== ENCOUNTER 2019-02-16 17:24 | Emergency (ER) | payer MEDICARE, MEDICAID ==
[~2019-02-16] VITALS: Ht 160 cm; Wt 68.2 kg
[~2019-02-16 17:24] MED LIST changes: +CALC500T3 PO; -CALC500T64 PO; +CYAN500T2 PO; -CYAN500T62 PO; -DARBEPOETIN 100 MCG/ML (ARANESP) 1 ML VIAL SC SCH; +ROSU40TA22 PO; -ROSU40TA23 PO
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
--- OUTSIDE RECORDS SUMMARY | 2019-02-16 17:32 | XMS REPORT | CCD ---
Author Author [facility] Organization [facility] Address [address] [place] [address] Phone Care Team Providers Care Personnel Monitor Name Role Phone PP Unavailable CCM Unavailable Summary Purpose Interface Exchange Insurance Providers Payer name Policy type / Coverage type Covered democrat ID Effective Begin Date Effective End Date WPS Medicare Part B [id number] 2015 Unknown [facility] Assistance [id number] Unknown Family history Mother Diagnosis Age At Onset Anemia Unknown Stroke Unknown Arthritis Unknown Hypertension Unknown Father Diagnosis Age At Onset Cancer Unknown Social History Social History Element Codes Description Effective Dates Marital status Unknown 01/02/2015 Number of children Unknown 3 01/02/2015 Employment Unknown Retired 01/02/[address]: 5231999 Quit over 10 years ago 25 years ago 01/02/[address]: 016601194 Never drinks alcohol 01/02/2015 Allergies, Adverse Reactions, Alerts Substance Reaction Codes Entered Date Inactivated Date Status * NO KNOWN FOOD ALLERGIES Unknown 01/02/2015 No Inactive Date Active SULFA(SULFONAMIDE ANTIBIOTICS) Unknown 01/02/2015 No Inactive Date Active Past Medical History Illness Codes Condition Status Onset Date Resolved Date Anemia, unspecified ICD- 9: 285.9 ICD-10: D64.9 Active 09/18/2018 Unknown Dementia in other diseases classified elsewhere with behavioral disturbance ICD-9: 294.8 ICD-10: F02.81 Active 08/26/2018 Unknown Headache ICD-9: 784.0 ICD-10: R51 Active 12/25/2018 Unknown Pain in right hip ICD-9: 719.45 ICD-10: M25.551 Active 01/25/2019 Unknown Diarrhea, unspecified ICD- 9: 787.91 ICD-10: R19.7 Active 12/25/2018 Unknown Traumatic subarachnoid hemorrhage without loss of consciousness, initial encounter ICD-9: 852.11 ICD-10: S06.6X0A Active 12/25/2018 Unknown Unsteadiness on feet ICD- 9: 781.2 ICD-10: R26.81 Active 12/25/2018 Unknown Urinary tract infection, site not specified ICD-9: 599.0 ICD-10: N39.0 Active 12/25/2018 Unknown Blister (nonthermal), right foot, initial encounter ICD-9: 917.2 ICD-10: S90.821A Active 10/27/2018 Unknown Chronic kidney disease, stage 4 (severe) ICD-9: 585.4 ICD-10: N18.4 Active 03/27/2016 Unknown Essential (primary) hypertension ICD-9: 401.9 ICD-10: I10 Active 01/01/2015 Unknown Type 2 diabetes mellitus with hyperglycemia ICD-9: 250.02 ICD-10: E11.65 Active 07/07/2016 Unknown Dysuria ICD-9: 788.1 ICD-10: R30.0 Active 12/26/2015 Unknown Other allergic rhinitis ICD-9: 477.8 ICD-10: J30.89 Active 07/20/2018 Unknown Type 2 diabetes mellitus with other specified complication ICD-9: 250.00 ICD-10: E11.69 Active 03/05/2018 Unknown Hypothyroidism, unspecified ICD-9: 244.9 ICD-10: E03.9 Active 01/01/2015 Unknown Actinic keratosis ICD-9: 702.0 ICD-10: L57.0 Active 10/08/2015 Unknown Gastro-esophageal reflux disease without esophagitis ICD-9: 530.81 ICD-10: K21.9 Active 07/07/2016 Unknown Diabetes Unknown Active 04/07/2015 Unknown DIABETES TYPE II ICD-9: 250.00 Active 04/06/2015 Unknown HYPERLIPIDEMIA ICD-9: 272.4 Active 01/01/2015 Unknown Hyperlipidemia Unknown Active 01/02/2015 Unknown Hypertension Unknown Active 01/02/2015 Unknown Hypothryroidism Unknown Active 01/02/2015 Unknown Diabetes mellitus out of control ICD-9: 250.02 Active 01/01/2015 Unknown ESSENTIAL HYPERTENSION ICD-9: 401.9 Active 01/01/2015 Unknown HYPOTHYROIDISM ICD-9: 244.9 Active 01/01/2015 Unknown Problems Condition Codes Effective Dates Condition Status Anemia, unspecified ICD- 9: 285.9 ICD-10: D64.9 09/18/2018 Active Dementia in other diseases classified elsewhere with behavioral disturbance ICD-9: 294.8 ICD-10: F02.81 08/26/2018 Active Headache ICD-9: 784.0 ICD-10: R51 12/25/2018 Active Pain in right hip ICD-9: 719.45 ICD-10: M25.551 01/25/2019 Active Diarrhea, unspecified ICD- 9: 787.91 ICD-10: R19.7 12/25/2018 Active Traumatic subarachnoid hemorrhage without loss of consciousness, initial encounter ICD-9: 852.11 ICD-10: S06.6X0A 12/25/2018 Active Unsteadiness on feet ICD- 9: 781.2 ICD-10: R26.81 12/25/2018 Active Urinary tract infection, site not specified ICD-9: 599.0 ICD-10: N39.0 12/25/2018 Active Blister (nonthermal), right foot, initial encounter ICD-9: 917.2 ICD-10: S90.821A 10/27/2018 Active Chronic kidney disease, stage 4 (severe) ICD-9: 585.4 ICD-10: N18.4 03/27/2016 Active Essential (primary) hypertension ICD-9: 401.9 ICD-10: I10 01/01/2015 Active Type 2 diabetes mellitus with hyperglycemia ICD-9: 250.02 ICD-10: E11.65 07/07/2016 Active Dysuria ICD-9: 788.1 ICD-10: R30.0 12/26/2015 Active Other allergic rhinitis ICD-9: 477.8 ICD-10: J30.89 07/20/2018 Active Type 2 diabetes mellitus with other specified complication ICD-9: 250.00 ICD-10: E11.69 03/05/2018 Active Hypothyroidism, unspecified ICD-9: 244.9 ICD-10: E03.9 01/01/2015 Active Actinic keratosis ICD-9: 702.0 ICD-10: L57.0 10/08/2015 Active Gastro-esophageal reflux disease without esophagitis ICD-9: 530.81 ICD-10: K21.9 07/07/2016 Active Diabetes Unknown 04/07/2015 Active DIABETES TYPE II ICD-9: 250.00 04/06/2015 Active HYPERLIPIDEMIA ICD-9: 272.4 01/01/2015 Active Hyperlipidemia Unknown 01/02/2015 Active Hypertension Unknown 01/02/2015 Active Hypothryroidism Unknown 01/02/2015 Active Diabetes mellitus out of control ICD-9: 250.02 01/01/2015 Active ESSENTIAL HYPERTENSION ICD-9: 401.9 01/01/2015 Active HYPOTHYROIDISM ICD-9: 244.9 01/01/2015 Active Medications Medication Codes Instructions Start Date Stop Date Status Fill Instructions tramadol 50 mg tablet RxNorm: 291282 1 Tablet(s) PO TID as needed 01/06/2019 No Stop Date Active Coreg 6.25 mg tablet RxNorm: 791017 1.5 Tablet(s) PO BID 12/22/2018 05/20/2019 Active lorazepam 1 mg tablet RxNorm: 346709 1 Tablet(s) PO Q6 12/16/2018 01/14/2019 Inactive Levemir FlexTouch U-100 Insulin 100 unit/mL (3 mL) subcutaneous pen RxNorm: 015701 4 Unit(s) SQ daily 10/27/2018 No Stop Date Active risperidone 0.5 mg tablet RxNorm: 016487 1 Tablet(s) PO BID 10/07/2018 02/03/2019 Inactive losartan 50 mg tablet RxNorm: 849962 1 Tablet(s) PO daily give if 115/50 or greater 10/07/2018 10/01/2019 Active Novolog U-100 Insulin aspart 100 unit/mL subcutaneous solution RxNorm: 402045 5-10 Unit(s) SQ QID per sliding scale and 8 units daily at noon 10/07/2018 No Stop Date Active risperidone 0.25 mg tablet RxNorm: 478774 1 Tablet(s) PO BID 09/09/2018 10/06/2018 Inactive Risperdal 0.25 mg tablet RxNorm: 365527 1 Tablet(s) PO BID 09/09/2018 10/06/2018 Inactive Voltaren 1 % topical gel RxNorm: 022871 2 Gram(s) TOP QID 10/30/2017 No Stop Date Active Novolog 100 unit/mL subcutaneous solution RxNorm: 712024 5-10 Unit(s) SQ QID per sliding scale 07/03/2017 10/06/2018 Inactive Novolog 100 unit/mL subcutaneous solution RxNorm: 677876 8 Unit(s) SQ at noon 09/27/2016 No Stop Date Active Novolog Flexpen 100 unit/mL subcutaneous RxNorm: 9922976 8 Unit(s) SQ at noon 09/27/2016 09/27/2016 Inactive Novolog Flexpen 100 unit/mL subcutaneous RxNorm: 8335809 8 Unit(s) SQ at noon 09/27/2016 09/26/2016 Inactive Novolog 100 unit/mL subcutaneous solution RxNorm: 604808 9 Unit(s) SQ at noon 09/27/2016 09/26/2016 Inactive Lantus 100 unit/mL subcutaneous solution RxNorm: 972325 25 Unit(s) SQ QHS 09/19/2016 10/06/2018 Inactive Coreg 6.25 mg tablet RxNorm: 024165 2 Tablet(s) PO BID 07/08/2016 09/30/2017 Inactive Lantus Solostar 100 unit/mL (3 mL) subcutaneous insulin pen RxNorm: 832713 25 Unit(s) SQ QAM and 50 Units at bedtime 04/05/2016 05/07/2016 Inactive Synthroid 150 mcg tablet RxNorm: 639691 1 Tablet(s) PO daily 04/05/2016 07/02/2017 Inactive Lantus Solostar 100 unit/mL (3 mL) subcutaneous insulin pen RxNorm: 578572 20 Unit(s) SQ QAM and 45 Units at bedtime 01/03/2016 01/07/2016 Inactive Synthroid 125 mcg tablet RxNorm: 387430 1 Tablet(s) PO daily 12/20/2015 12/19/2015 Inactive Synthroid 125 mcg tablet RxNorm: 547181 1 Tablet(s) PO daily 12/20/2015 04/04/2016 Inactive Novolog Flexpen 100 unit/mL subcutaneous RxNorm: 2968444 15 Unit(s) SQ am and 15 units @ noon BID 11/15/2015 05/07/2016 Inactive Lantus Solostar 100 unit/mL (3 mL) subcutaneous insulin pen RxNorm: 734309 10 Unit(s) SQ QAM and 40 Units at bedtime 11/15/2015 11/19/2015 Inactive increased from 25u Coreg 6.25 mg tablet RxNorm: 816007 1.5 Tablet(s) PO BID 10/09/2015 07/07/2016 Inactive Lantus Solostar 100 unit/mL (3 mL) subcutaneous insulin pen RxNorm: 840329 35 Unit(s) SQ QHS 09/26/2015 11/14/2015 Inactive increased from 25u Novolog Flexpen 100 unit/mL subcutaneous RxNorm: 0735253 12 Unit(s) SQ am and 12 units @ noon BID 09/25/2015 11/14/2015 Inactive Lantus Solostar 100 unit/mL (3 mL) subcutaneous insulin pen RxNorm: 375596 35 Unit(s) SQ QHS 09/21/2015 09/25/2015 Inactive Novolog Flexpen 100 unit/mL subcutaneous RxNorm: 3976349 12 Unit(s) SQ am and 12 units @ noon BID - dr to increase based on glucose readings [id number] 10.4 09/21/2015 09/24/2015 Inactive losartan 100 mg tablet RxNorm: 277085 1 Tablet(s) PO daily 09/21/2015 09/14/2016 Inactive Lantus Solostar 100 unit/mL (3 mL) subcutaneous insulin pen RxNorm: 162279 25 Unit(s) SQ QHS 08/29/2015 09/20/2015 Inactive Novolog Flexpen 100 unit/mL subcutaneous RxNorm: 0797313 8 Unit(s) SQ am and noon BID 08/29/2015 09/20/2015 Inactive Lantus Solostar 100 unit/mL (3 mL) subcutaneous insulin pen RxNorm: 616525 25 Unit(s) SQ QHS 08/25/2015 08/28/2015 Inactive losartan 50 mg tablet RxNorm: 881210 1 Tablet(s) PO daily 08/22/2015 09/20/2015 Inactive levothyroxine 125 mcg tablet RxNorm: 492458 1 Tablet(s) PO daily 01/23/2015 04/22/2015 Inactive Plavix 75 mg tablet RxNorm: 369917 1 Tablet(s) PO daily 01/02/2015 09/22/2016 Inactive Aranesp 25 mcg/mL (in polysorbate) Injection RxNorm: 042584 Milliliter(s) Inj 30mcg q 2 weeks 01/02/2015 05/08/2016 Inactive [SAVINGS FOR NON-COVERED DRUGS -- BIN:[id number], PCN: [id number], Group: [id number], ID# [id number], Questions: . THIS IS NOT INSURANCE.] aspirin 81 mg chewable tablet RxNorm: 586441 1 Tablet(s) PO daily 01/02/2015 05/07/2016 Inactive Coreg 6.25 mg tablet RxNorm: 828596 1 Tablet(s) PO BID 01/02/2015 10/08/2015 Inactive cyanocobalamin (vit B-12) 1,000 mcg tablet RxNorm: 448341 1 Tablet(s) PO daily No Start Date Active Fish Oil 300 mg-1,000 mg capsule RxNorm: 180501 2 Capsule(s) PO daily No Start Date Active Crestor 40 mg tablet RxNorm: 669207 1 Tablet(s) PO daily No Start Date Active Multiple Vitamins tablet RxNorm: 1 Tablet(s) PO daily No Start Date Active ferrous sulfate 325 mg (65 mg iron) tablet RxNorm: 256646 1 Tablet(s) PO daily No Start Date Active Aranesp 40 mcg/mL (in polysorbate) Injection RxNorm: 771333 Inject 1 Milliliter(s) SQ Every 2 weeks No Start Date Active loratadine 10 mg tablet RxNorm: 293085 1 Tablet(s) PO daily No Start Date Active levothyroxine 100 mcg tablet RxNorm: 464623 1 Tablet(s) PO daily No Start Date Active aspirin 81 mg capsule,delayed release RxNorm: 649606 1 Capsule(s) PO daily No Start Date Active calcium carbonate 200 mg calcium (500 mg) chewable tablet RxNorm: 631472 1-2 Tablet(s) PO daily No Start Date Active Lasix 20 mg tablet RxNorm: 408545 1 Tablet(s) PO daily No Start Date Active lactulose 20 gram oral packet RxNorm: 3026784 30 packet PO BID No Start Date Active ferrous sulfate 325 mg (65 mg iron) tablet RxNorm: 934724 1 Tablet(s) PO daily No Start Date 05/07/2016 Inactive sodium bicarbonate 650 mg tablet RxNorm: 891239 1 Tablet(s) PO BID No Start Date 10/06/2018 Inactive Aranesp 25 mcg/mL (in polysorbate) Injection RxNorm: 016782 injection No Start Date 01/01/2015 Inactive Vitamin D3 2,000 unit tablet RxNorm: 537044 1 Tablet(s) PO daily No Start Date 10/06/2018 Inactive lovastatin 40 mg tablet RxNorm: 413828 1 Tablet(s) PO daily No Start Date 05/07/2016 Inactive Lipitor 40 mg tablet RxNorm: 245002 1 Tablet(s) PO QHS No Start Date 01/01/2015 Inactive amlodipine 2.5 mg tablet RxNorm: 197772 1 Tablet(s) PO BID No Start Date 12/16/2014 Inactive sodium bicarbonate 325 mg tablet RxNorm: 274959 1 Tablet(s) PO BID No Start Date 05/07/2016 Inactive levothyroxine 150 mcg tablet RxNorm: 754490 1 Tablet(s) PO daily No Start Date 01/22/2015 Inactive Lantus Solostar 100 unit/mL (3 mL) subcutaneous insulin pen RxNorm: 194078 20 Unit(s) SQ QHS No Start Date 08/24/2015 Inactive Vitamin B12 Oral RxNorm: oral No Start Date 10/06/2018 Inactive Lantus 100 unit/mL subcutaneous solution RxNorm: 174321 30 Unit(s) SQ QHS No Start Date 09/18/2016 Inactive Novolog 100 unit/mL subcutaneous solution RxNorm: 486908 10 Unit(s) SQ BID in the AM and at noon No Start Date 07/02/2017 Inactive aspirin 81 mg tablet RxNorm: 233549 1 Tablet(s) PO daily No Start Date 01/01/2015 Inactive Levemir FlexTouch U-100 Insulin 100 unit/mL (3 mL) subcutaneous pen RxNorm: 730016 25 Unit(s) SQ daily No Start Date 10/26/2018 Inactive Novolog Flexpen 100 unit/mL subcutaneous RxNorm: 8159632 8 Unit(s) SQ am and noon BID No Start Date 08/28/2015 Inactive glimepiride 4 mg tablet RxNorm: 074976 1 Tablet(s) PO daily No Start Date 10/08/2015 Inactive tramadol 50 mg tablet RxNorm: 512480 1 Tablet(s) PO TID as needed No Start Date 01/05/2019 Inactive Vitamin D3 2,000 unit capsule RxNorm: 366857 1 Capsule(s) PO daily No Start Date 05/08/2016 Inactive metoprolol tartrate 12.5 Tablet RxNorm: 1 Tablet(s) PO BID No Start Date 12/16/2014 Inactive Medication Administered No Medication Administered data Immunizations Vaccine Codes Date Status Influenza CVX: 141 06/06/2017 completed Assessments Condition Codes Effective Dates Other specified anemias ICD-10: D64.89 ICD-9: 285.8 01/25/2019 Pain in right hip ICD-10: M25.551 ICD-9: 719.45 01/25/2019 Headache ICD-10: R51 ICD-9: 784.0 01/25/2019 Dementia in other diseases classified elsewhere with behavioral disturbance ICD-10: F02.81 ICD-9: 294.8 01/25/2019 Diarrhea, unspecified ICD-10: R19.7 ICD-9: 787.91 12/25/2018 Unsteadiness on feet ICD-10: R26.81 ICD-9: 781.2 12/25/2018 Urinary tract infection, site not specified ICD-10: N39.0 ICD-9: 599.0 12/25/2018 Traumatic subarachnoid hemorrhage without loss of consciousness, initial encounter ICD-10: S06.6X0A ICD-9: 852.11 12/25/2018 Type 2 diabetes mellitus with hyperglycemia ICD-10: E11.65 ICD-9: 250.02 10/27/2018 Essential (primary) hypertension ICD-10: I10 ICD-9: 401.9 10/27/2018 Blister (nonthermal), right foot, initial encounter ICD-10: S90.821A ICD-9: 917.2 10/27/2018 Anemia, unspecified ICD-10: D64.9 ICD-9: 285.9 09/18/2018 Dysuria ICD-10: R30.0 ICD-9: 788.1 09/11/2018 Other allergic rhinitis ICD-10: J30.89 ICD-9: 477.8 07/20/2018 Type 2 diabetes mellitus with other specified complication ICD- 10: E11.69 ICD-9: 250.00 07/20/2018 Chronic kidney disease, stage 4 (severe) ICD-10: N18.4 ICD-9: 585.4 07/20/2018 Hypothyroidism, unspecified ICD-10: E03.9 ICD-9: 244.9 10/30/2017 Actinic keratosis ICD-10: L57.0 ICD-9: 702.0 10/07/2016 Gastro-esophageal reflux disease without esophagitis ICD-10: K21.9 ICD-9: 530.81 07/08/2016 DIABETES TYPE II ICD-9: 250.00 04/07/2015 ESSENTIAL HYPERTENSION ICD-9: 401.9 04/07/2015 HYPERLIPIDEMIA ICD-9: 272.4 04/07/2015 Diabetes mellitus out of control ICD-9: 250.02 01/02/2015 HYPOTHYROIDISM ICD-9: 244.9 01/02/2015 Reason For Visit Reason For Visit Effective Dates Notes headache 01/25/2019 Hospital Follow Up 12/25/2018 blisters 10/27/2018 anxiety 08/26/2018 headache 07/20/2018 diabetes mellitus 03/05/2018 diabetes mellitus 10/30/2017 diabetes mellitus 07/03/2017 diabetes mellitus 04/03/2017 diabetes mellitus 12/31/2016 diabetes mellitus 10/07/2016 diabetes mellitus 09/19/2016 diabetes mellitus 07/08/2016 wound follow up 05/08/2016 on the 4th finger of the right hand diabetes mellitus 03/28/2016 diabetes mellitus 01/22/2016 diabetes mellitus 12/21/2015 diabetes mellitus 11/06/2015 Hospital Follow Up 10/20/2015 diabetes mellitus 10/09/2015 diabetes mellitus 09/21/2015 diabetes mellitus 08/22/2015 diabetes mellitus 04/07/2015 diabetes mellitus 01/02/2015 Results Observation Observation Code Item Item Code Result Date Urinalysis Ord28 U-Color Yellow 02/05/2019 Urinalysis Ord28 U-Clarity Turbid 02/05/2019 Urinalysis Ord28 U-Gluc 250 mg/dL 02/05/2019 Urinalysis Ord28 U-Bili Negative 02/05/2019 Urinalysis Ord28 U-Ketone Negative 02/05/2019 Urinalysis Ord28 U-SG 1.020 02/05/2019 Urinalysis Ord28 U-Blood Small 02/05/2019 Urinalysis Ord28 U-pH 7.0 02/05/2019 Urinalysis Ord28 U-Protein 100 mg/dL 02/05/2019 Urinalysis Ord28 U-Urobilin 0.2 E.U./dL E.U./dL 02/05/2019 Urinalysis Ord28 U-Nitrites Negative 02/05/2019 Urinalysis Ord28 U-Leuk Small 02/05/2019 Urinalysis Ord28 U-Bact 4+ 02/05/2019 Urinalysis Ord28 U-Squamous Epi RARE per/HPF 02/05/2019 Urinalysis Ord28 U-Crystal None per/HPF 02/05/2019 Urinalysis Ord28 U-Mucus 2+ 02/05/2019 Urinalysis Ord28 U-Renal tubular epi None 02/05/2019 Urinalysis Ord28 U-RBC 3-5 per/HPF 02/05/2019 Urinalysis Ord28 U-Transitional epi 0-5 per/HPF 02/05/2019 Urinalysis Ord28 U-WBC 10-20 per/HPF 02/05/2019 Urinalysis Ord28 U-Cast None per/lpf 02/05/2019 Urinalysis Ord28 U-VOL VOLUME SUFFICIENT (10mL) 02/05/2019 Urinalysis Ord28 U-Yeast NEGATIVE 02/05/2019 Urinalysis Ord28 U-Com Culture to follow 02/05/2019 Random Urine Protein/Creatinine Ratio [id number] U Prot 52.0 mg/dl 12/30/2018 Random Urine Protein/Creatinine Ratio Avr1053 U CREAT 41.0 mg/dL 12/30/2018 Random Urine Protein/Creatinine Ratio Pcs9149 R MTP/Creat Ratio 1.27 12/30/2018 Renal Pji123 NA 143 mEq/L 12/30/2018 Renal Alj248 K 4.6 mEq/L 12/30/2018 Renal Tpu060 CL 111 mEq/L 12/30/2018 Renal Fps483 CO2 23.0 mEq/L 12/30/2018 Renal Zvs918 ANION GAP 14 12/30/2018 Renal Sxh992 Osmo 298 mOsmo 12/30/2018 Renal Tjj474 GLUCOSE 42 mg/dL 12/30/2018 Renal Kmt548 BUN 58 mg/dL 12/30/2018 Renal Rca183 Creat 2.5 mg/dL 12/30/2018 Renal Ome297 eGFR 20 ml/min/1.73m2 12/30/2018 Renal Tig037 B/C Ratio 23.4 Ratio 12/30/2018 Renal Hot741 CALCIUM 7.8 mg/dL 12/30/2018 Renal Ntu629 PHOS 4.8 mg/dL 12/30/2018 Renal Arh089 ALBUMIN 3.0 g/dL 12/30/2018 Uric Acid Ord77 Uric A 7.7 mg/dL 12/30/2018 Urinalysis Ord28 U-Color Yellow 12/30/2018 Urinalysis Ord28 U-Clarity Cloudy 12/30/2018 Urinalysis Ord28 U-Gluc Negative 12/30/2018 Urinalysis Ord28 U-Bili Negative 12/30/2018 Urinalysis Ord28 U-Ketone Negative 12/30/2018 Urinalysis Ord28 U-SG 1.015 12/30/2018 Urinalysis Ord28 U-Blood Moderate 12/30/2018 Urinalysis Ord28 U-pH 7.0 12/30/2018 Urinalysis Ord28 U-Protein 30 mg/dL 12/30/2018 Urinalysis Ord28 U-Urobilin 0.2 E.U./dL E.U./dL 12/30/2018 Urinalysis Ord28 U-Nitrites Negative 12/30/2018 Urinalysis Ord28 U-Leuk Moderate 12/30/2018 Urinalysis Ord28 U-Bact 4+ 12/30/2018 Urinalysis Ord28 U-Squamous Epi 0-5 per/HPF 12/30/2018 Urinalysis Ord28 U-Crystal None per/HPF 12/30/2018 Urinalysis Ord28 U-Mucus None 12/30/2018 Urinalysis Ord28 U-Renal tubular epi None 12/30/2018 Urinalysis Ord28 U-RBC 5-10 per/HPF 12/30/2018 Urinalysis Ord28 U-Transitional epi 0-5 per/HPF 12/30/2018 Urinalysis Ord28 U-WBC TNTC per/HPF 12/30/2018 Urinalysis Ord28 U-Cast None per/lpf 12/30/2018 Urinalysis Ord28 U-VOL VOLUME SUFFICIENT (10mL) 12/30/2018 Urinalysis Ord28 U-Yeast NEGATIVE 12/30/2018 Urinalysis Ord28 U-Com Culture to follow 12/30/2018 Vitamin D 25 Oh [id number] VITAMIN D, 25 HYDROXY 46.45 ng/mL 12/30/2018 Parathyroid Hormone Kgw919 PTH 96.30 pg/ml 12/30/2018 Cbc With Differential Ord2 WBC 5.05 K/ul 12/30/2018 Cbc With Differential Ord2 RBC 2.33 M/ul 12/30/2018 Cbc With Differential Ord2 HGB 6.8 Result Verified By Repeat Analysis g/dl 12/30/2018 Cbc With Differential Ord2 HCT 22.3 % 12/30/2018 Cbc With Differential Ord2 Neut% 50.4 % 12/30/2018 Cbc With Differential Ord2 Lymph% 30.3 % 12/30/2018 Cbc With Differential Ord2 MCV 95.7 fl 12/30/2018 Cbc With Differential Ord2 MCH 29.2 pg 12/30/2018 Cbc With Differential Ord2 [place]% 13.5 % 12/30/2018 Cbc With Differential Ord2 MCHC 30.5 pg 12/30/2018 Cbc With Differential Ord2 Eos% 5.0 % 12/30/2018 Cbc With Differential Ord2 PLT 101 K/ul 12/30/2018 Cbc With Differential Ord2 Baso% 0.8 % 12/30/2018 Cbc With Differential Ord2 RDW 15.0 % 12/30/2018 Cbc With Differential Ord2 Neut ABS# 2.55 K/ul 12/30/2018 Cbc With Differential Ord2 Lymph ABS# 1.53 K/ul 12/30/2018 Cbc With Differential Ord2 [place] ABS# 0.7 K/ul 12/30/2018 Cbc With Differential Ord2 Eos ABS# 0.3 K/ul 12/30/2018 Cbc With Differential Ord2 Baso ABS# 0.0 K/ul 12/30/2018 Metabolic Ord15 NA 143 mEq/L 12/16/2018 Metabolic Ord15 K 4.7 mEq/L 12/16/2018 Metabolic Ord15 CL 113 mEq/L 12/16/2018 Metabolic Ord15 CO2 22.0 mEq/L 12/16/2018 Metabolic Ord15 GLUCOSE 74 mg/dL 12/16/2018 Metabolic Ord15 BUN 52 mg/dL 12/16/2018 Metabolic Ord15 Creat 2.3 mg/dL 12/16/2018 Metabolic Ord15 B/C Ratio 22.4 Ratio 12/16/2018 Metabolic Ord15 eGFR 21 ml/min/1.73m2 12/16/2018 Metabolic Ord15 Osmo 298 mOsmo 12/16/2018 Metabolic Ord15 ANION GAP 13 12/16/2018 Metabolic Ord15 CALCIUM 8.2 mg/dL 12/16/2018 Urine Culture Ucult Complete Growth of aerobe sent to ref lab 12/15/2018 Urinalysis Ord28 U-Color Yellow 12/14/2018 Urinalysis Ord28 U-Clarity Clear 12/14/2018 Urinalysis Ord28 U-Gluc Negative 12/14/2018 Urinalysis Ord28 U-Bili Negative 12/14/2018 Urinalysis Ord28 U-Ketone Negative 12/14/2018 Urinalysis Ord28 U-SG 1.015 12/14/2018 Urinalysis Ord28 U-Blood Trace-lysed 12/14/2018 Urinalysis Ord28 U-pH 5.0 12/14/2018 Urinalysis Ord28 U-Protein Trace 12/14/2018 Urinalysis Ord28 U-Urobilin 0.2 E.U./dL E.U./dL 12/14/2018 Urinalysis Ord28 U-Nitrites Negative 12/14/2018 Urinalysis Ord28 U-Leuk Trace 12/14/2018 Urinalysis Ord28 U-Bact 3+ 12/14/2018 Urinalysis Ord28 U-Squamous Epi 0-5 per/HPF 12/14/2018 Urinalysis Ord28 U-Crystal None per/HPF 12/14/2018 Urinalysis Ord28 U-Mucus None 12/14/2018 Urinalysis Ord28 U-Renal tubular epi None 12/14/2018 Urinalysis Ord28 U-RBC RARE per/HPF 12/14/2018 Urinalysis Ord28 U-Transitional epi 0-5 per/HPF 12/14/2018 Urinalysis Ord28 U-WBC 5-10 per/HPF 12/14/2018 Urinalysis Ord28 U-Cast None per/lpf 12/14/2018 Urinalysis Ord28 U-VOL VOLUME SUFFICIENT (10mL) 12/14/2018 Urinalysis Ord28 U-Com Culture to follow 12/14/2018 Urinalysis Ord28 U-Yeast NEGATIVE 12/14/2018 Urine Culture Ucult Complete >100,000 col/ml aerobic growth sent to ref lab 12/03/2018 Urinalysis Ord28 U-Color Yellow 12/02/2018 Urinalysis Ord28 U-Clarity Turbid 12/02/2018 Urinalysis Ord28 U-Gluc Negative 12/02/2018 Urinalysis Ord28 U-Bili Negative 12/02/2018 Urinalysis Ord28 U-Ketone Negative 12/02/2018 Urinalysis Ord28 U-SG 1.015 12/02/2018 Urinalysis Ord28 U-Blood Trace-lysed 12/02/2018 Urinalysis Ord28 U-pH 5.0 12/02/2018 Urinalysis Ord28 U-Protein Trace 12/02/2018 Urinalysis Ord28 U-Urobilin 0.2 E.U./dL E.U./dL 12/02/2018 Urinalysis Ord28 U-Nitrites Negative 12/02/2018 Urinalysis Ord28 U-Leuk Large 12/02/2018 Urinalysis Ord28 U-Bact 4+ 12/02/2018 Urinalysis Ord28 U-Squamous Epi None per/HPF 12/02/2018 Urinalysis Ord28 U-Crystal None per/HPF 12/02/2018 Urinalysis Ord28 U-Mucus None 12/02/2018 Urinalysis Ord28 U-Renal tubular epi None 12/02/2018 Urinalysis Ord28 U-RBC None per/HPF 12/02/2018 Urinalysis Ord28 U-Transitional epi 0-5 per/HPF 12/02/2018 Urinalysis Ord28 U-WBC 75-100 per/HPF 12/02/2018 Urinalysis Ord28 U-Cast None per/lpf 12/02/2018 Urinalysis Ord28 U-VOL VOLUME SUFFICIENT (10mL) 12/02/2018 Urinalysis Ord28 U-Com Culture to follow 12/02/2018 Urinalysis Ord28 U-Yeast NEGATIVE 12/02/2018 Renal Fre343 NA 138 mEq/L 11/02/2018 Renal Tye830 K 5.0 mEq/L 11/02/2018 Renal Eoe447 CL 107 mEq/L 11/02/2018 Renal Pao982 CO2 21.0 mEq/L 11/02/2018 Renal Ajc184 ANION GAP 15 11/02/2018 Renal Znq685 Osmo 302 mOsmo 11/02/2018 Renal Tct634 GLUCOSE 151 mg/dL 11/02/2018 Renal Mre487 BUN 79 mg/dL 11/02/2018 Renal Qjj678 Creat 3.5 mg/dL 11/02/2018 Renal Bye723 eGFR 14 ml/min/1.73m2 11/02/2018 Renal Akd191 B/C Ratio 22.9 Ratio 11/02/2018 Renal Eey788 CALCIUM 8.1 mg/dL 11/02/2018 Renal Moa640 PHOS 6.2 mg/dL 11/02/2018 Renal Ldj303 ALBUMIN 3.4 g/dL 11/02/2018 Parathyroid Hormone Wwm871 PTH 145.00 pg/ml 11/02/2018 Random Urine Protein/Creatinine Ratio Mhg5726 U Prot 42.0 mg/dl 11/02/2018 Random Urine Protein/Creatinine Ratio Udg2621 U CREAT 72.0 mg/dL 11/02/2018 Random Urine Protein/Creatinine Ratio Fxo8947 R MTP/Creat Ratio 0.58 11/02/2018 Uric Acid Ord77 Uric A 9.0 mg/dL 11/02/2018 Urinalysis Ord28 U-Color Yellow 11/02/2018 Urinalysis Ord28 U-Clarity Slightly Cloudy 11/02/2018 Urinalysis Ord28 U-Gluc Negative 11/02/2018 Urinalysis Ord28 U-Bili Negative 11/02/2018 Urinalysis Ord28 U-Ketone Negative 11/02/2018 Urinalysis Ord28 U-SG 1.015 11/02/2018 Urinalysis Ord28 U-Blood Trace-lysed 11/02/2018 Urinalysis Ord28 U-pH 5.0 11/02/2018 Urinalysis Ord28 U-Protein Negative 11/02/2018 Urinalysis Ord28 U-Urobilin 0.2 E.U./dL E.U./dL 11/02/2018 Urinalysis Ord28 U-Nitrites Negative 11/02/2018 Urinalysis Ord28 U-Leuk Moderate 11/02/2018 Urinalysis Ord28 U-Bact 1+ 11/02/2018 Urinalysis Ord28 U-Squamous Epi None per/HPF 11/02/2018 Urinalysis Ord28 U-Crystal None per/HPF 11/02/2018 Urinalysis Ord28 U-Mucus None 11/02/2018 Urinalysis Ord28 U-Renal tubular epi None 11/02/2018 Urinalysis Ord28 U-RBC 3-5 per/HPF 11/02/2018 Urinalysis Ord28 U-Transitional epi 0-5 per/HPF 11/02/2018 Urinalysis Ord28 U-WBC 50-60 per/HPF 11/02/2018 Urinalysis Ord28 U-Cast None per/HPF 11/02/2018 Urinalysis Ord28 U-VOL VOLUME SUFFICIENT (10mL) 11/02/2018 Urinalysis Ord28 U-Yeast NEGATIVE 11/02/2018 Urinalysis Ord28 U-Com Urine saved if culture needed (specimen acceptable for 48 hours from collection if refrigerated) 11/02/2018 Cbc With Differential Ord2 WBC 6.93 K/ul 11/02/2018 Cbc With Differential Ord2 RBC 2.87 M/ul 11/02/2018 Cbc With Differential Ord2 HGB 8.7 g/dl 11/02/2018 Cbc With Differential Ord2 Neut% 48.4 % 11/02/2018 Cbc With Differential Ord2 HCT 27.3 % 11/02/2018 Cbc With Differential Ord2 MCV 95.1 fl 11/02/2018 Cbc With Differential Ord2 Lymph% 34.3 % 11/02/2018 Cbc With Differential Ord2 [place]% 13.4 % 11/02/2018 Cbc With Differential Ord2 MCH 30.3 pg 11/02/2018 Cbc With Differential Ord2 Eos% 3.3 % 11/02/2018 Cbc With Differential Ord2 MCHC 31.9 pg 11/02/2018 Cbc With Differential Ord2 PLT 132 K/ul 11/02/2018 Cbc With Differential Ord2 Baso% 0.6 % 11/02/2018 Cbc With Differential Ord2 RDW 14.5 % 11/02/2018 Cbc With Differential Ord2 Neut ABS# 3.35 K/ul 11/02/2018 Cbc With Differential Ord2 Lymph ABS# 2.38 K/ul 11/02/2018 Cbc With Differential Ord2 [place] ABS# 0.9 K/ul 11/02/2018 Cbc With Differential Ord2 Eos ABS# 0.2 K/ul 11/02/2018 Cbc With Differential Ord2 Baso ABS# 0.0 K/ul 11/02/2018 Vitamin D 25 Oh [id number] VITAMIN D, 25 HYDROXY 53.24 ng/mL 11/02/2018 Cbc With Differential Ord2 WBC 5.34 K/ul 09/16/2018 Cbc With Differential Ord2 RBC 3.17 M/ul 09/16/2018 Cbc With Differential Ord2 HGB 9.7 g/dl 09/16/2018 Cbc With Differential Ord2 HCT 30.6 % 09/16/2018 Cbc With Differential Ord2 Neut% 47.5 % 09/16/2018 Cbc With Differential Ord2 MCV 96.5 fl 09/16/2018 Cbc With Differential Ord2 Lymph% 39.3 % 09/16/2018 Cbc With Differential Ord2 MCH 30.6 pg 09/16/2018 Cbc With Differential Ord2 [place]% 10.1 % 09/16/2018 Cbc With Differential Ord2 MCHC 31.7 pg 09/16/2018 Cbc With Differential Ord2 Eos% 2.4 % 09/16/2018 Cbc With Differential Ord2 PLT 100 K/ul 09/16/2018 Cbc With Differential Ord2 Baso% 0.7 % 09/16/2018 Cbc With Differential Ord2 RDW 15.8 % 09/16/2018 Cbc With Differential Ord2 Neut ABS# 2.53 K/ul 09/16/2018 Cbc With Differential Ord2 Lymph ABS# 2.10 K/ul 09/16/2018 Cbc With Differential Ord2 [place] ABS# 0.5 K/ul 09/16/2018 Cbc With Differential Ord2 Eos ABS# 0.1 K/ul 09/16/2018 Cbc With Differential Ord2 Baso ABS# 0.0 K/ul 09/16/2018 Urinalysis Ord28 U-Color Yellow 09/10/2018 Urinalysis Ord28 U-Clarity Clear 09/10/2018 Urinalysis Ord28 U-Gluc Negative 09/10/2018 Urinalysis Ord28 U-Bili Negative 09/10/2018 Urinalysis Ord28 U-Ketone Negative 09/10/2018 Urinalysis Ord28 U-SG 1.015 09/10/2018 Urinalysis Ord28 U-Blood Trace-lysed 09/10/2018 Urinalysis Ord28 U-pH 8.0 09/10/2018 Urinalysis Ord28 U-Protein 100 mg/dL 09/10/2018 Urinalysis Ord28 U-Urobilin 0.2 E.U./dL E.U./dL 09/10/2018 Urinalysis Ord28 U-Nitrites Negative 09/10/2018 Urinalysis Ord28 U-Leuk Small 09/10/2018 Urinalysis Ord28 U-Bact TRACE 09/10/2018 Urinalysis Ord28 U-Squamous Epi 0-5 per/HPF 09/10/2018 Urinalysis Ord28 U-Crystal None per/HPF 09/10/2018 Urinalysis Ord28 U-Mucus None 09/10/2018 Urinalysis Ord28 U-Renal tubular epi None 09/10/2018 Urinalysis Ord28 U-RBC None per/HPF 09/10/2018 Urinalysis Ord28 U-Transitional epi None per/HPF 09/10/2018 Urinalysis Ord28 U-WBC 3-5 per/HPF 09/10/2018 Urinalysis Ord28 U-Cast None per/HPF 09/10/2018 Urinalysis Ord28 U-VOL VOLUME SUFFICIENT (10mL) 09/10/2018 Urinalysis Ord28 U-Yeast NEGATIVE 09/10/2018 Urinalysis Ord28 U-Com Urine saved if culture needed (specimen acceptable for 48 hours from collection if refrigerated) 09/10/2018 Urine Culture Ucult Preliminary NO Growth Day 1 08/27/2018 Urine Culture Ucult Complete NO Growth Day 2 08/27/2018 Tsh Ord6 TSH (3rd IS) 1.93 uIU/mL 08/24/2018 Free T4 Kwi079 FREE T4 1.05 ng/dL 08/24/2018 Urinalysis Ord28 U-Color Yellow 08/24/2018 Urinalysis Ord28 U-Clarity Clear 08/24/2018 Urinalysis Ord28 U-Gluc 100 mg/dL 08/24/2018 Urinalysis Ord28 U-Bili Negative 08/24/2018 Urinalysis Ord28 U-Ketone Negative 08/24/2018 Urinalysis Ord28 U-SG 1.010 08/24/2018 Urinalysis Ord28 U-Blood Trace-intact 08/24/2018 Urinalysis Ord28 U-pH 6.5 08/24/2018 Urinalysis Ord28 U-Protein 30 mg/dL 08/24/2018 Urinalysis Ord28 U-Urobilin 0.2 E.U./dL E.U./dL 08/24/2018 Urinalysis Ord28 U-Nitrites Negative 08/24/2018 Urinalysis Ord28 U-Leuk Trace 08/24/2018 Urinalysis Ord28 U-Bact None 08/24/2018 Urinalysis Ord28 U-Squamous Epi None per/HPF 08/24/2018 Urinalysis Ord28 U-Crystal None per/HPF 08/24/2018 Urinalysis Ord28 U-Mucus None 08/24/2018 Urinalysis Ord28 U-Renal tubular epi None 08/24/2018 Urinalysis Ord28 U-RBC RARE per/HPF 08/24/2018 Urinalysis Ord28 U-Transitional epi None per/HPF 08/24/2018 Urinalysis Ord28 U-WBC RARE per/HPF 08/24/2018 Urinalysis Ord28 U-Cast None per/HPF 08/24/2018 Urinalysis Ord28 U-VOL VOLUME SUFFICIENT (10mL) 08/24/2018 Urinalysis Ord28 U-Yeast NEGATIVE 08/24/2018 Urinalysis Ord28 U-Com No culture indicated, Urine saved if culture needed (specimen acceptable for 48 hours from collection if refrigerated) 08/24/2018 Cbc With Differential Ord2 WBC 7.06 K/ul 08/17/2018 Cbc With Differential Ord2 RBC 3.40 M/ul 08/17/2018 Cbc With Differential Ord2 HGB 10.1 g/dl 08/17/2018 Cbc With Differential Ord2 HCT 32.0 % 08/17/2018 Cbc With Differential Ord2 Neut% 56.8 % 08/17/2018 Cbc With Differential Ord2 MCV 94.1 fl 08/17/2018 Cbc With Differential Ord2 Lymph% 30.3 % 08/17/2018 Cbc With Differential Ord2 MCH 29.7 pg 08/17/2018 Cbc With Differential Ord2 [place]% 9.8 % 08/17/2018 Cbc With Differential Ord2 MCHC 31.6 pg 08/17/2018 Cbc With Differential Ord2 Eos% 2.5 % 08/17/2018 Cbc With Differential Ord2 PLT 128 K/ul 08/17/2018 Cbc With Differential Ord2 Baso% 0.6 % 08/17/2018 Cbc With Differential Ord2 RDW 16.2 % 08/17/2018 Cbc With Differential Ord2 Neut ABS# 4.01 K/ul 08/17/2018 Cbc With Differential Ord2 Lymph ABS# 2.14 K/ul 08/17/2018 Cbc With Differential Ord2 [place] ABS# 0.7 K/ul 08/17/2018 Cbc With Differential Ord2 Eos ABS# 0.2 K/ul 08/17/2018 Cbc With Differential Ord2 Baso ABS# 0.0 K/ul 08/17/2018 Comp Metabolic Lrv417 NA 143 mEq/L 04/14/2018 Comp Metabolic Hgf285 K 4.6 mEq/L 04/14/2018 Comp Metabolic Yrp079 CL 108 mEq/L 04/14/2018 Comp Metabolic Byy316 CO2 23.0 mEq/L 04/14/2018 Comp Metabolic Ocz979 ANION GAP 17 04/14/2018 Comp Metabolic Mqz087 GLUCOSE 54 mg/dL 04/14/2018 Comp Metabolic Yup028 Creat 2.7 mg/dL 04/14/2018 Comp Metabolic Dbq278 eGFR 18 ml/min/1.73m2 04/14/2018 Comp Metabolic Qze582 BUN 45 mg/dL 04/14/2018 Comp Metabolic Rss298 B/C Ratio 16.9 Ratio 04/14/2018 Comp Metabolic Qhx346 CALCIUM 8.3 mg/dL 04/14/2018 Comp Metabolic Cul351 ALK PHOS 113 U/L 04/14/2018 Comp Metabolic Opp689 AST(SGOT) 31 U/L 04/14/2018 Comp Metabolic Bfp479 ALT(SGPT) 33 U/L 04/14/2018 Comp Metabolic Gvp010 BILI T 0.5 mg/dL 04/14/2018 Comp Metabolic Bob781 ALBUMIN 3.6 g/dL 04/14/2018 Comp Metabolic Xta332 TPRO 6.5 g/dL 04/14/2018 Comp Metabolic Nmw352 GLOB 2.9 g/dL 04/14/2018 Comp Metabolic Amw692 A/G Ratio 1.2 Ratio 04/14/2018 Comp Metabolic Zif931 Osmo 294 mOsmo 04/14/2018 Lipid Ord30 CHOL 71 mg/dL 04/14/2018 Lipid Ord30 HDL 38.0 mg/dl 04/14/2018 Lipid Ord30 TRIG 55 mg/dL 04/14/2018 Lipid Ord30 LDL 22 mg/dL 04/14/2018 Lipid Ord30 C/HDL 1.9 Ratio 04/14/2018 Urine Culture Ucult Preliminary NO Growth Day 1 01/23/2018 Urine Culture Ucult Complete NO Growth Day 2 01/23/2018 Urinalysis Ord28 U-Color Yellow 01/21/2018 Urinalysis Ord28 U-Clarity Slightly Cloudy 01/21/2018 Urinalysis Ord28 U-Gluc Negative 01/21/2018 Urinalysis Ord28 U-Bili Negative 01/21/2018 Urinalysis Ord28 U-Ketone Negative 01/21/2018 Urinalysis Ord28 U-SG 1.015 01/21/2018 Urinalysis Ord28 U-Blood Small 01/21/2018 Urinalysis Ord28 U-pH 7.5 01/21/2018 Urinalysis Ord28 U-Protein 100 mg/dL 01/21/2018 Urinalysis Ord28 U-Urobilin 0.2 E.U./dL E.U./dL 01/21/2018 Urinalysis Ord28 U-Nitrites Negative 01/21/2018 Urinalysis Ord28 U-Leuk Moderate 01/21/2018 Urinalysis Ord28 U-Bact 1+ 01/21/2018 Urinalysis Ord28 U-Squamous Epi RARE per/HPF 01/21/2018 Urinalysis Ord28 U-Crystal None per/HPF 01/21/2018 Urinalysis Ord28 U-Mucus None 01/21/2018 Urinalysis Ord28 U-Renal tubular epi None 01/21/2018 Urinalysis Ord28 U-RBC 3-5 per/HPF 01/21/2018 Urinalysis Ord28 U-Transitional epi 0-5 per/HPF 01/21/2018 Urinalysis Ord28 U-WBC 5-10 per/HPF 01/21/2018 Urinalysis Ord28 U-Cast None per/HPF 01/21/2018 Urinalysis Ord28 U-VOL VOLUME SUFFICIENT (10mL) 01/21/2018 Urinalysis Ord28 U-Yeast NEGATIVE 01/21/2018 Urinalysis Ord28 U-Com Culture to follow 01/21/2018 %Hba1C Vsl571 % HbA1c 31548- 6 7.4 % 11/03/2017 %Hba1C Amu027 Gluc Ave 166 mg/dL 11/03/2017 Urine Culture Ucult Preliminary NO Growth Day 1 07/31/2017 Urine Culture Ucult Complete NO Growth Day 2 07/31/2017 Urinalysis Ord28 U-Color Yellow 07/29/2017 Urinalysis Ord28 U-Clarity Clear 07/29/2017 Urinalysis Ord28 U-Gluc 100 mg/dL 07/29/2017 Urinalysis Ord28 U-Bili Negative 07/29/2017 Urinalysis Ord28 U-Ketone Negative 07/29/2017 Urinalysis Ord28 U-SG 1.020 07/29/2017 Urinalysis Ord28 U-Blood Moderate 07/29/2017 Urinalysis Ord28 U-pH 7.0 07/29/2017 Urinalysis Ord28 U-Protein 100 mg/dL 07/29/2017 Urinalysis Ord28 U-Urobilin 0.2 E.U./dL E.U./dL 07/29/2017 Urinalysis Ord28 U-Nitrites Negative 07/29/2017 Urinalysis Ord28 U-Leuk Trace 07/29/2017 Urinalysis Ord28 U-Bact TRACE 07/29/2017 Urinalysis Ord28 U-Squamous Epi 0-5 per/HPF 07/29/2017 Urinalysis Ord28 U-Crystal None per/HPF 07/29/2017 Urinalysis Ord28 U-Mucus None 07/29/2017 Urinalysis Ord28 U-Renal tubular epi None 07/29/2017 Urinalysis Ord28 U-RBC 5-10 per/HPF 07/29/2017 Urinalysis Ord28 U-Transitional epi None per/HPF 07/29/2017 Urinalysis Ord28 U-WBC 3-5 per/HPF 07/29/2017 Urinalysis Ord28 U-Cast None per/HPF 07/29/2017 Urinalysis Ord28 U-VOL VOLUME SUFFICIENT (10mL) 07/29/2017 Urinalysis Ord28 U-Com Culture to follow 07/29/2017 Urinalysis Ord28 U-Yeast NEGATIVE 07/29/2017 Cbc With Differential Ord2 WBC 4.80 K/ul 09/20/2016 Cbc With Differential Ord2 RBC 3.76 M/ul 09/20/2016 Cbc With Differential Ord2 HGB 9.9 g/dl 09/20/2016 Cbc With Differential Ord2 HCT 32.0 % 09/20/2016 Cbc With Differential Ord2 Neut% 60.5 % 09/20/2016 Cbc With Differential Ord2 MCV 85.1 fl 09/20/2016 Cbc With Differential Ord2 Lymph% 22.5 % 09/20/2016 Cbc With Differential Ord2 MCH 26.3 pg 09/20/2016 Cbc With Differential Ord2 [place]% 11.3 % 09/20/2016 Cbc With Differential Ord2 MCHC 30.9 pg 09/20/2016 Cbc With Differential Ord2 Eos% 3.8 % 09/20/2016 Cbc With Differential Ord2 PLT 196 K/ul 09/20/2016 Cbc With Differential Ord2 Baso% 1.9 % 09/20/2016 Cbc With Differential Ord2 RDW 16.0 % 09/20/2016 Cbc With Differential Ord2 Neut ABS# 2.91 K/ul 09/20/2016 Cbc With Differential Ord2 Lymph ABS# 1.08 K/ul 09/20/2016 Cbc With Differential Ord2 [place] ABS# 0.5 K/ul 09/20/2016 Cbc With Differential Ord2 Eos ABS# 0.2 K/ul 09/20/2016 Cbc With Differential Ord2 Baso ABS# 0.1 K/ul 09/20/2016 Comp Metabolic Vwj870 NA 141 mEq/L 09/20/2016 Comp Metabolic Iia696 K 5.9 Result Verified By Repeat Analysis mEq/L 09/20/2016 Comp Metabolic Vrj799 CL 110 mEq/L 09/20/2016 Comp Metabolic Dyg020 CO2 23.0 mEq/L 09/20/2016 Comp Metabolic Bbs713 ANION GAP 14 09/20/2016 Comp Metabolic Vqq957 GLUCOSE 101 mg/dL 09/20/2016 Comp Metabolic Ahw582 Creat 2.2 mg/dL 09/20/2016 Comp Metabolic Chi083 eGFR 23 ml/min/1.73m2 09/20/2016 Comp Metabolic Lez471 BUN 49 mg/dL 09/20/2016 Comp Metabolic Fgr574 B/C Ratio 22.0 Ratio 09/20/2016 Comp Metabolic Hsw046 CALCIUM 8.7 mg/dL 09/20/2016 Comp Metabolic Pze142 ALK PHOS 142 U/L 09/20/2016 Comp Metabolic Mkt314 AST(SGOT) 26 U/L 09/20/2016 Comp Metabolic Twg125 ALT(SGPT) 27 U/L 09/20/2016 Comp Metabolic Uae519 BILI T 0.3 mg/dL 09/20/2016 Comp Metabolic Cwk230 ALBUMIN 4.0 g/dL 09/20/2016 Comp Metabolic Edy215 TPRO 7.6 g/dL 09/20/2016 Comp Metabolic Tlg010 GLOB 3.6 g/dL 09/20/2016 Comp Metabolic Mfk683 A/G Ratio 1.1 Ratio 09/20/2016 Comp Metabolic Eqz484 Osmo 294 mOsmo 09/20/2016 %Hba1C Nbh022 % HbA1c 12594- 6 6.7 % 09/20/2016 %Hba1C Fre982 Gluc Ave 146 mg/dL 09/20/2016 Urinalysis Ord28 U-Color Yellow 05/31/2016 Urinalysis Ord28 U-Clarity Clear 05/31/2016 Urinalysis Ord28 U-Gluc Negative 05/31/2016 Urinalysis Ord28 U-Bili Negative 05/31/2016 Urinalysis Ord28 U-Ketone Negative 05/31/2016 Urinalysis Ord28 U-SG 1.020 05/31/2016 Urinalysis Ord28 U-Blood Trace-lysed 05/31/2016 Urinalysis Ord28 U-pH 5.0 05/31/2016 Urinalysis Ord28 U-Protein 30 mg/dL 05/31/2016 Urinalysis Ord28 U-Urobilin 0.2 E.U./dL E.U./dL 05/31/2016 Urinalysis Ord28 U-Nitrites Negative 05/31/2016 Urinalysis Ord28 U-Leuk Trace 05/31/2016 Urinalysis Ord28 U-Bact None 05/31/2016 Urinalysis Ord28 U-Squamous Epi 0-5 per/HPF 05/31/2016 Urinalysis Ord28 U-Crystal None per/HPF 05/31/2016 Urinalysis Ord28 U-Mucus None 05/31/2016 Urinalysis Ord28 U-Renal tubular epi None 05/31/2016 Urinalysis Ord28 U-RBC None per/HPF 05/31/2016 Urinalysis Ord28 U-Transitional epi None per/HPF 05/31/2016 Urinalysis Ord28 U-WBC 0-2 per/HPF 05/31/2016 Urinalysis Ord28 U-Cast None per/HPF 05/31/2016 Urinalysis Ord28 U-VOL VOLUME SUFFICIENT (10mL) 05/31/2016 Urinalysis Ord28 U-Yeast NEGATIVE 05/31/2016 Urinalysis Ord28 U-Com Urine saved if culture needed (specimen acceptable for 48 hours from collection if refrigerated) 05/31/2016 %Hba1C Yjx715 % HbA1c 91361- 6 13.5 % 03/28/2016 %Hba1C Ynn762 Gluc Ave 341 mg/dL 03/28/2016 Tsh Ord6 hTSH II 16.02 uIU/mL 03/28/2016 Comp Metabolic Uny087 NA 133 mEq/L 03/28/2016 Comp Metabolic Kly184 K 5.4 mEq/L 03/28/2016 Comp Metabolic Iwt981 CL 102 mEq/L 03/28/2016 Comp Metabolic Fjm827 CO2 22.0 mEq/L 03/28/2016 Comp Metabolic Qba254 ANION GAP 14 03/28/2016 Comp Metabolic Shf444 GLUCOSE 432 mg/dL 03/28/2016 Comp Metabolic Pft249 Creat 1.9 mg/dL 03/28/2016 Comp Metabolic Osv493 eGFR 27 ml/min/1.73m2 03/28/2016 Comp Metabolic Aeb597 BUN 38 mg/dL 03/28/2016 Comp Metabolic Gzu400 B/C Ratio 19.6 Ratio 03/28/2016 Comp Metabolic Gfw187 CALCIUM 8.9 mg/dL 03/28/2016 Comp Metabolic Ysk917 ALK PHOS 84 U/L 03/28/2016 Comp Metabolic Mlu239 AST(SGOT) 9 U/L 03/28/2016 Comp Metabolic Hql596 ALT(SGPT) 6 U/L 03/28/2016 Comp Metabolic Zpi031 BILI T 0.4 mg/dL 03/28/2016 Comp Metabolic Dpv174 ALBUMIN 3.6 g/dL 03/28/2016 Comp Metabolic Ulm730 TPRO 6.8 g/dL 03/28/2016 Comp Metabolic Hsk172 GLOB 3.2 g/dL 03/28/2016 Comp Metabolic Cvh501 A/G Ratio 1.1 Ratio 03/28/2016 Comp Metabolic Fbs459 Osmo 294 mOsmo 03/28/2016 Free T4 Guq867 FREE T4 0.72 ng/dL 03/28/2016 Comp Metabolic Mlk717 NA 132 mEq/L 12/22/2015 Comp Metabolic Bdx838 K 4.6 mEq/L 12/22/2015 Comp Metabolic Pqj554 CL 97 mEq/L 12/22/2015 Comp Metabolic Mkz676 CO2 24.0 mEq/L 12/22/2015 Comp Metabolic Mlq298 ANION GAP 16 12/22/2015 Comp Metabolic Gje329 GLUCOSE 354 mg/dL 12/22/2015 Comp Metabolic Aae942 Creat 1.8 mg/dL 12/22/2015 Comp Metabolic Oha250 eGFR 29 ml/min/1.73m2 12/22/2015 Comp Metabolic Sgu608 BUN 47 mg/dL 12/22/2015 Comp Metabolic Kuy704 B/C Ratio 26.3 Ratio 12/22/2015 Comp Metabolic Zhk329 CALCIUM 9.5 mg/dL 12/22/2015 Comp Metabolic Hyp872 ALK PHOS 100 U/L 12/22/2015 Comp Metabolic Tke233 AST(SGOT) 15 U/L 12/22/2015 Comp Metabolic Hig914 ALT(SGPT) 11 U/L 12/22/2015 Comp Metabolic Qyn884 BILI T 0.4 mg/dL 12/22/2015 Comp Metabolic Qti300 ALBUMIN 3.7 g/dL 12/22/2015 Comp Metabolic Vri472 TPRO 7.1 g/dL 12/22/2015 Comp Metabolic Uop153 GLOB 3.4 g/dL 12/22/2015 Comp Metabolic Wtw074 A/G Ratio 1.1 Ratio 12/22/2015 Comp Metabolic Hri331 Osmo 291 mOsmo 12/22/2015 Microalbumin Tne896 MicroAlb 25.4 mg/dL 12/22/2015 Random Urine Protein/Creatinine Ratio Jaw4986 U Prot 63.3 mg/dl 12/22/2015 Random Urine Protein/Creatinine Ratio Jru7205 U CREAT 83.0 mg/dL 12/22/2015 Random Urine Protein/Creatinine Ratio Oya3297 R MTP/Creat Ratio 0.76 12/22/2015 %Hba1C Anl407 % HbA1c 76674- 6 11.9 % 12/21/2015 %Hba1C Jeg176 Gluc Ave 295 mg/dL 12/21/2015 Review of Systems System Result Effective Dates Constitutional No recent illness 01/25/2019 Constitutional No anorexia 01/25/2019 Constitutional No night sweats 01/25/2019 Constitutional No chills 01/25/2019 Constitutional No diaphoresis 01/25/2019 Constitutional fatigue 01/25/2019 Constitutional No fever 01/25/2019 Constitutional No insomnia 01/25/2019 Constitutional No malaise 01/25/2019 Eyes No eye pain 01/25/2019 Eyes No vision change 01/25/2019 Ears/Nose/Throat/Neck dizziness 01/25/2019 Ears/Nose/Throat/Neck headache 01/25/2019 Cardiovascular No chest pain/pressure 01/25/2019 Cardiovascular No dyspnea 01/25/2019 Respiratory No chest congestion 01/25/2019 Respiratory No chest tightness 01/25/2019 Respiratory No cigarette smoking 01/25/2019 Respiratory No cough 01/25/2019 Gastrointestinal No abdominal pain 01/25/2019 Gastrointestinal No constipation 01/25/2019 Gastrointestinal No vomiting 01/25/2019 Genitourinary/Nephrology No breast complaint 01/25/2019 Genitourinary/Nephrology No dysuria 01/25/2019 Dermatologic No rash 01/25/2019 Neurologic gait abnormality 01/25/2019 Neurologic headache 01/25/2019 Neurologic memory loss 01/25/2019 Neurologic No mental status change 01/25/2019 Psychiatric No anxiety 01/25/2019 Psychiatric No depression 01/25/2019 Endocrine No dry or coarse skin 01/25/2019 Endocrine No polydipsia 01/25/2019 Endocrine No polyuria 01/25/2019 Musculoskeletal stiffness 01/25/2019 Musculoskeletal joint complaint 01/25/2019 Constitutional No recent illness 12/25/2018 Constitutional No anorexia 12/25/2018 Constitutional No night sweats 12/25/2018 Constitutional No chills 12/25/2018 Constitutional No diaphoresis 12/25/2018 Constitutional fatigue 12/25/2018 Constitutional No fever 12/25/2018 Constitutional No insomnia 12/25/2018 Constitutional No malaise 12/25/2018 Eyes No eye pain 12/25/2018 Eyes No vision change 12/25/2018 Ears/Nose/Throat/Neck dizziness 12/25/2018 Cardiovascular No chest pain/pressure 12/25/2018 Cardiovascular No dyspnea 12/25/2018 Respiratory No chest congestion 12/25/2018 Respiratory No chest tightness 12/25/2018 Respiratory No cigarette smoking 12/25/2018 Respiratory No cough 12/25/2018 Gastrointestinal No abdominal pain 12/25/2018 Gastrointestinal No constipation 12/25/2018 Gastrointestinal diarrhea 12/25/2018 Gastrointestinal No vomiting 12/25/2018 Genitourinary/Nephrology No breast complaint 12/25/2018 Genitourinary/Nephrology No dysuria 12/25/2018 Musculoskeletal stiffness 12/25/2018 Musculoskeletal joint complaint 12/25/2018 Dermatologic No rash 12/25/2018 Neurologic headache 12/25/2018 Neurologic memory loss 12/25/2018 Neurologic No mental status change 12/25/2018 Psychiatric No anxiety 12/25/2018 Psychiatric No depression 12/25/2018 Endocrine No dry or coarse skin 12/25/2018 Endocrine No polydipsia 12/25/2018 Endocrine No polyuria 12/25/2018 Ears/Nose/Throat/Neck headache 12/25/2018 Neurologic gait abnormality 12/25/2018 Constitutional No recent illness 10/27/2018 Constitutional No anorexia 10/27/2018 Constitutional No night sweats 10/27/2018 Constitutional No chills 10/27/2018 Constitutional No diaphoresis 10/27/2018 Constitutional No fatigue 10/27/2018 Constitutional No fever 10/27/2018 Constitutional No insomnia 10/27/2018 Constitutional No malaise 10/27/2018 Eyes No eye pain 10/27/2018 Eyes No vision change 10/27/2018 Cardiovascular No chest pain/pressure 10/27/2018 Cardiovascular No dyspnea 10/27/2018 Respiratory No chest congestion 10/27/2018 Respiratory No chest tightness 10/27/2018 Respiratory No cigarette smoking 10/27/2018 Respiratory No cough 10/27/2018 Gastrointestinal No abdominal pain 10/27/2018 Gastrointestinal No constipation 10/27/2018 Gastrointestinal No diarrhea 10/27/2018 Gastrointestinal No vomiting 10/27/2018 Genitourinary/Nephrology No breast complaint 10/27/2018 Genitourinary/Nephrology No dysuria 10/27/2018 Musculoskeletal stiffness 10/27/2018 Musculoskeletal joint complaint 10/27/2018 Dermatologic No rash 10/27/2018 Neurologic No dizziness 10/27/2018 Neurologic headache 10/27/2018 Neurologic No memory loss 10/27/2018 Neurologic No mental status change 10/27/2018 Psychiatric No anxiety 10/27/2018 Psychiatric No depression 10/27/2018 Endocrine No dry or coarse skin 10/27/2018 Endocrine No polydipsia 10/27/2018 Endocrine No polyuria 10/27/2018 Ears/Nose/Throat/Neck dizziness 10/27/2018 Constitutional No recent illness 08/26/2018 Constitutional No chills 08/26/2018 Constitutional No diaphoresis 08/26/2018 Constitutional No fever 08/26/2018 Eyes No eye erythema 08/26/2018 Ears/Nose/Throat/Neck No nasal discharge 08/26/2018 Cardiovascular No chest pain/pressure 08/26/2018 Cardiovascular No dyspnea 08/26/2018 Respiratory No cough 08/26/2018 Gastrointestinal No abdominal pain 08/26/2018 Musculoskeletal arthralgia(s) 08/26/2018 Neurologic No alteration of consciousness 08/26/2018 Neurologic memory loss 08/26/2018 Genitourinary/Nephrology dysuria 08/26/2018 Constitutional No recent illness 07/20/2018 Constitutional No anorexia 07/20/2018 Constitutional No night sweats 07/20/2018 Constitutional No chills 07/20/2018 Constitutional No diaphoresis 07/20/2018 Constitutional No fatigue 07/20/2018 Constitutional No fever 07/20/2018 Constitutional No insomnia 07/20/2018 Constitutional No malaise 07/20/2018 Constitutional No weight loss 07/20/2018 Constitutional No weight gain 07/20/2018 Constitutional No obesity 07/20/2018 Eyes No eye pain 07/20/2018 Eyes No vision change 07/20/2018 Ears/Nose/Throat/Neck dizziness 07/20/2018 Cardiovascular No chest pain/pressure 07/20/2018 Cardiovascular No dyspnea 07/20/2018 Respiratory No chest congestion 07/20/2018 Respiratory No chest tightness 07/20/2018 Respiratory No cigarette smoking 07/20/2018 Respiratory No cough 07/20/2018 Gastrointestinal No abdominal pain 07/20/2018 Gastrointestinal No constipation 07/20/2018 Gastrointestinal No diarrhea 07/20/2018 Gastrointestinal No vomiting 07/20/2018 Genitourinary/Nephrology No breast complaint 07/20/2018 Genitourinary/Nephrology No dysuria 07/20/2018 Musculoskeletal stiffness 07/20/2018 Musculoskeletal joint complaint 07/20/2018 Dermatologic No rash 07/20/2018 Neurologic No dizziness 07/20/2018 Neurologic headache 07/20/2018 Neurologic No memory loss 07/20/2018 Neurologic No mental status change 07/20/2018 Psychiatric No anxiety 07/20/2018 Psychiatric No depression 07/20/2018 Endocrine No dry or coarse skin 07/20/2018 Endocrine No polydipsia 07/20/2018 Endocrine No polyuria 07/20/2018 Hematologic/Lymphatic No abnormal ecchymoses 07/20/2018 Hematologic/Lymphatic No abnormal bleeding and bruising 07/20/2018 Ears/Nose/Throat/Neck headache 07/20/2018 Ears/Nose/Throat/Neck nasal discharge 07/20/2018 Ears/Nose/Throat/Neck sinus congestion 07/20/2018 Neurologic headache 03/05/2018 Respiratory No cough 03/05/2018 Gastrointestinal No abdominal pain 03/05/2018 Gastrointestinal No constipation 03/05/2018 Gastrointestinal No diarrhea 03/05/2018 Constitutional No recent illness 03/05/2018 Constitutional No anorexia 03/05/2018 Constitutional No night sweats 03/05/2018 Constitutional No chills 03/05/2018 Constitutional No diaphoresis 03/05/2018 Constitutional No fatigue 03/05/2018 Constitutional No fever 03/05/2018 Constitutional No insomnia 03/05/2018 Constitutional No malaise 03/05/2018 Constitutional No weight loss 03/05/2018 Constitutional No weight gain 03/05/2018 Constitutional No obesity 03/05/2018 Eyes No eye pain 03/05/2018 Eyes No vision change 03/05/2018 Ears/Nose/Throat/Neck dizziness 03/05/2018 Cardiovascular No chest pain/pressure 03/05/2018 Cardiovascular No dyspnea 03/05/2018 Respiratory No chest congestion 03/05/2018 Respiratory No chest tightness 03/05/2018 Respiratory No cigarette smoking 03/05/2018 Gastrointestinal No vomiting 03/05/2018 Genitourinary/Nephrology No breast complaint 03/05/2018 Genitourinary/Nephrology No dysuria 03/05/2018 Musculoskeletal stiffness 03/05/2018 Musculoskeletal joint complaint 03/05/2018 Dermatologic No rash 03/05/2018 Neurologic No dizziness 03/05/2018 Neurologic No memory loss 03/05/2018 Neurologic No mental status change 03/05/2018 Psychiatric No anxiety 03/05/2018 Psychiatric No depression 03/05/2018 Endocrine No dry or coarse skin 03/05/2018 Endocrine No polydipsia 03/05/2018 Endocrine No polyuria 03/05/2018 Hematologic/Lymphatic No abnormal ecchymoses 03/05/2018 Hematologic/Lymphatic No abnormal bleeding and bruising 03/05/2018 Constitutional No recent illness 10/30/2017 Constitutional No anorexia 10/30/2017 Constitutional No night sweats 10/30/2017 Constitutional No chills 10/30/2017 Constitutional No diaphoresis 10/30/2017 Constitutional No fatigue 10/30/2017 Constitutional No fever 10/30/2017 Constitutional No insomnia 10/30/2017 Constitutional No malaise 10/30/2017 Constitutional No weight loss 10/30/2017 Constitutional No weight gain 10/30/2017 Constitutional No obesity 10/30/2017 Eyes No eye pain 10/30/2017 Eyes No vision change 10/30/2017 Ears/Nose/Throat/Neck dizziness 10/30/2017 Ears/Nose/Throat/Neck No headache 10/30/2017 Cardiovascular No chest pain/pressure 10/30/2017 Cardiovascular No dyspnea 10/30/2017 Respiratory No chest congestion 10/30/2017 Respiratory No chest tightness 10/30/2017 Respiratory No cigarette smoking 10/30/2017 Gastrointestinal No abdominal pain 10/30/2017 Gastrointestinal No constipation 10/30/2017 Gastrointestinal No diarrhea 10/30/2017 Gastrointestinal No vomiting 10/30/2017 Genitourinary/Nephrology No breast complaint 10/30/2017 Genitourinary/Nephrology No dysuria 10/30/2017 Musculoskeletal stiffness 10/30/2017 Musculoskeletal joint complaint 10/30/2017 Dermatologic No rash 10/30/2017 Neurologic No dizziness 10/30/2017 Neurologic No memory loss 10/30/2017 Neurologic No mental status change 10/30/2017 Psychiatric No anxiety 10/30/2017 Psychiatric No depression 10/30/2017 Endocrine No dry or coarse skin 10/30/2017 Endocrine No polydipsia 10/30/2017 Endocrine No polyuria 10/30/2017 Hematologic/Lymphatic No abnormal ecchymoses 10/30/2017 Hematologic/Lymphatic No abnormal bleeding and bruising 10/30/2017 Constitutional No recent illness 07/03/2017 Constitutional No anorexia 07/03/2017 Constitutional No night sweats 07/03/2017 Constitutional No chills 07/03/2017 Constitutional No diaphoresis 07/03/2017 Constitutional No fatigue 07/03/2017 Constitutional No fever 07/03/2017 Constitutional No insomnia 07/03/2017 Constitutional No malaise 07/03/2017 Constitutional No weight loss 07/03/2017 Constitutional No weight gain 07/03/2017 Constitutional No obesity 07/03/2017 Eyes No eye pain 07/03/2017 Eyes No vision change 07/03/2017 Ears/Nose/Throat/Neck No headache 07/03/2017 Cardiovascular No chest pain/pressure 07/03/2017 Cardiovascular No dyspnea 07/03/2017 Respiratory No chest congestion 07/03/2017 Respiratory No chest tightness 07/03/2017 Respiratory No cigarette smoking 07/03/2017 Gastrointestinal No abdominal pain 07/03/2017 Gastrointestinal No constipation 07/03/2017 Gastrointestinal No diarrhea 07/03/2017 Gastrointestinal No vomiting 07/03/2017 Genitourinary/Nephrology No breast complaint 07/03/2017 Genitourinary/Nephrology No dysuria 07/03/2017 Musculoskeletal stiffness 07/03/2017 Neurologic No dizziness 07/03/2017 Neurologic No memory loss 07/03/2017 Neurologic No mental status change 07/03/2017 Psychiatric No anxiety 07/03/2017 Psychiatric No depression 07/03/2017 Endocrine No dry or coarse skin 07/03/2017 Endocrine No polydipsia 07/03/2017 Endocrine No polyuria 07/03/2017 Hematologic/Lymphatic No abnormal ecchymoses 07/03/2017 Hematologic/Lymphatic No abnormal bleeding and bruising 07/03/2017 Ears/Nose/Throat/Neck dizziness 07/03/2017 Dermatologic No rash 07/03/2017 Musculoskeletal joint complaint 07/03/2017 Constitutional No recent illness 04/03/2017 Constitutional No anorexia 04/03/2017 Constitutional No night sweats 04/03/2017 Constitutional No chills 04/03/2017 Constitutional No diaphoresis 04/03/2017 Constitutional No fatigue 04/03/2017 Constitutional No fever 04/03/2017 Constitutional No insomnia 04/03/2017 Constitutional No malaise 04/03/2017 Constitutional No weight loss 04/03/2017 Constitutional No weight gain 04/03/2017 Constitutional No obesity 04/03/2017 Eyes No eye pain 04/03/2017 Eyes No vision change 04/03/2017 Ears/Nose/Throat/Neck No headache 04/03/2017 Cardiovascular No chest pain/pressure 04/03/2017 Cardiovascular No dyspnea 04/03/2017 Respiratory No chest congestion 04/03/2017 Respiratory No chest tightness 04/03/2017 Respiratory No cigarette smoking 04/03/2017 Gastrointestinal No abdominal pain 04/03/2017 Gastrointestinal No constipation 04/03/2017 Gastrointestinal No diarrhea 04/03/2017 Gastrointestinal No vomiting 04/03/2017 Genitourinary/Nephrology No breast complaint 04/03/2017 Genitourinary/Nephrology No dysuria 04/03/2017 Musculoskeletal No stiffness 04/03/2017 Musculoskeletal No swelling 04/03/2017 Musculoskeletal No arthralgia(s) 04/03/2017 Musculoskeletal No back pain 04/03/2017 Neurologic No dizziness 04/03/2017 Neurologic No memory loss 04/03/2017 Neurologic No mental status change 04/03/2017 Psychiatric No anxiety 04/03/2017 Psychiatric No depression 04/03/2017 Endocrine No dry or coarse skin 04/03/2017 Endocrine No polydipsia 04/03/2017 Endocrine No polyuria 04/03/2017 Hematologic/Lymphatic No abnormal ecchymoses 04/03/2017 Hematologic/Lymphatic No abnormal bleeding and bruising 04/03/2017 Constitutional No recent illness 12/31/2016 Constitutional No anorexia 12/31/2016 Constitutional No night sweats 12/31/2016 Constitutional No chills 12/31/2016 Constitutional No diaphoresis 12/31/2016 Constitutional No fatigue 12/31/2016 Constitutional No fever 12/31/2016 Constitutional No insomnia 12/31/2016 Constitutional No malaise 12/31/2016 Constitutional No weight loss 12/31/2016 Constitutional No weight gain 12/31/2016 Constitutional No obesity 12/31/2016 Eyes No eye pain 12/31/2016 Eyes No vision change 12/31/2016 Ears/Nose/Throat/Neck No headache 12/31/2016 Cardiovascular No chest pain/pressure 12/31/2016 Cardiovascular No dyspnea 12/31/2016 Respiratory No chest congestion 12/31/2016 Respiratory No chest tightness 12/31/2016 Respiratory No cigarette smoking 12/31/2016 Gastrointestinal No abdominal pain 12/31/2016 Gastrointestinal No constipation 12/31/2016 Gastrointestinal No diarrhea 12/31/2016 Gastrointestinal No vomiting 12/31/2016 Genitourinary/Nephrology No breast complaint 12/31/2016 Genitourinary/Nephrology No dysuria 12/31/2016 Musculoskeletal No stiffness 12/31/2016 Musculoskeletal No swelling 12/31/2016 Musculoskeletal No arthralgia(s) 12/31/2016 Musculoskeletal No back pain 12/31/2016 Neurologic No dizziness 12/31/2016 Neurologic No memory loss 12/31/2016 Neurologic No mental status change 12/31/2016 Psychiatric No anxiety 12/31/2016 Psychiatric No depression 12/31/2016 Endocrine No dry or coarse skin 12/31/2016 Endocrine No polydipsia 12/31/2016 Endocrine No polyuria 12/31/2016 Hematologic/Lymphatic No abnormal ecchymoses 12/31/2016 Hematologic/Lymphatic No abnormal bleeding and bruising 12/31/2016 Constitutional No recent illness 10/07/2016 Constitutional No anorexia 10/07/2016 Constitutional No night sweats 10/07/2016 Constitutional No chills 10/07/2016 Constitutional No diaphoresis 10/07/2016 Constitutional No fatigue 10/07/2016 Constitutional No fever 10/07/2016 Constitutional No insomnia 10/07/2016 Constitutional No malaise 10/07/2016 Constitutional No weight loss 10/07/2016 Constitutional No weight gain 10/07/2016 Constitutional No obesity 10/07/2016 Eyes No eye pain 10/07/2016 Eyes No vision change 10/07/2016 Ears/Nose/Throat/Neck dizziness 10/07/2016 Ears/Nose/Throat/Neck No headache 10/07/2016 Cardiovascular No chest pain/pressure 10/07/2016 Cardiovascular No dyspnea 10/07/2016 Respiratory No cigarette smoking 10/07/2016 Respiratory No chest tightness 10/07/2016 Respiratory No chest congestion 10/07/2016 Gastrointestinal No abdominal pain 10/07/2016 Gastrointestinal No constipation 10/07/2016 Gastrointestinal No diarrhea 10/07/2016 Gastrointestinal nausea 10/07/2016 Gastrointestinal No vomiting 10/07/2016 Genitourinary/Nephrology No breast complaint 10/07/2016 Genitourinary/Nephrology No dysuria 10/07/2016 Musculoskeletal No stiffness 10/07/2016 Musculoskeletal No swelling 10/07/2016 Musculoskeletal No arthralgia(s) 10/07/2016 Musculoskeletal No back pain 10/07/2016 Dermatologic sores 10/07/2016 Neurologic No dizziness 10/07/2016 Neurologic No memory loss 10/07/2016 Neurologic No mental status change 10/07/2016 Psychiatric No anxiety 10/07/2016 Psychiatric No depression 10/07/2016 Endocrine No dry or coarse skin 10/07/2016 Endocrine No polydipsia 10/07/2016 Endocrine No polyuria 10/07/2016 Hematologic/Lymphatic No abnormal ecchymoses 10/07/2016 Hematologic/Lymphatic No abnormal bleeding and bruising 10/07/2016 Constitutional No recent illness 09/19/2016 Constitutional No anorexia 09/19/2016 Constitutional No night sweats 09/19/2016 Constitutional No chills 09/19/2016 Constitutional No diaphoresis 09/19/2016 Constitutional No fatigue 09/19/2016 Constitutional No fever 09/19/2016 Constitutional No insomnia 09/19/2016 Constitutional No malaise 09/19/2016 Constitutional No weight loss 09/19/2016 Constitutional No weight gain 09/19/2016 Eyes No eye pain 09/19/2016 Eyes No vision change 09/19/2016 Ears/Nose/Throat/Neck dizziness 09/19/2016 Ears/Nose/Throat/Neck No headache 09/19/2016 Cardiovascular No chest pain/pressure 09/19/2016 Cardiovascular No edema 09/19/2016 Cardiovascular No dyspnea 09/19/2016 Cardiovascular No fatigue 09/19/2016 Respiratory No apneic events 09/19/2016 Respiratory No aspiration 09/19/2016 Respiratory No chest congestion 09/19/2016 Respiratory No chest tightness 09/19/2016 Respiratory No cigarette smoking 09/19/2016 Respiratory No cough 09/19/2016 Gastrointestinal No constipation 09/19/2016 Gastrointestinal No anorexia 09/19/2016 Gastrointestinal No abdominal pain 09/19/2016 Gastrointestinal No nausea 09/19/2016 Gastrointestinal No vomiting 09/19/2016 Genitourinary/Nephrology No anuria/oliguria 09/19/2016 Genitourinary/Nephrology No breast complaint 09/19/2016 Genitourinary/Nephrology No dysuria 09/19/2016 Genitourinary/Nephrology No urinary urgency 09/19/2016 Genitourinary/Nephrology No urinary frequency 09/19/2016 Genitourinary/Nephrology No urinary incontinence 09/19/2016 Genitourinary/Nephrology No urinary retention/hesitancy 09/19/2016 Musculoskeletal No stiffness 09/19/2016 Musculoskeletal No swelling 09/19/2016 Musculoskeletal No arthralgia(s) 09/19/2016 Musculoskeletal No back pain 09/19/2016 Musculoskeletal No bone fracture 09/19/2016 Dermatologic No rash 09/19/2016 Dermatologic No sores 09/19/2016 Neurologic No dizziness 09/19/2016 Neurologic No mental status change 09/19/2016 Psychiatric No anxiety 09/19/2016 Psychiatric No depression 09/19/2016 Endocrine No polyuria 09/19/2016 Endocrine polydipsia 09/19/2016 Endocrine No sweating 09/19/2016 Endocrine No weakness 09/19/2016 Endocrine diabetes mellitus type 2 09/19/2016 Hematologic/Lymphatic No abnormal ecchymoses 09/19/2016 Hematologic/Lymphatic No abnormal bleeding and bruising 09/19/2016 Constitutional No recent illness 07/08/2016 Constitutional No anorexia 07/08/2016 Constitutional No night sweats 07/08/2016 Constitutional No chills 07/08/2016 Constitutional No diaphoresis 07/08/2016 Constitutional No fatigue 07/08/2016 Constitutional No fever 07/08/2016 Constitutional No insomnia 07/08/2016 Constitutional No malaise 07/08/2016 Constitutional weight loss 07/08/2016 Constitutional No weight gain 07/08/2016 Constitutional No obesity 07/08/2016 Eyes No eye pain 07/08/2016 Eyes No vision change 07/08/2016 Ears/Nose/Throat/Neck dizziness 07/08/2016 Ears/Nose/Throat/Neck No headache 07/08/2016 Cardiovascular No chest pain/pressure 07/08/2016 Cardiovascular No dyspnea 07/08/2016 Respiratory No cough 07/08/2016 Respiratory No dyspnea 07/08/2016 Respiratory No chest congestion 07/08/2016 Gastrointestinal No abdominal pain 07/08/2016 Gastrointestinal nausea 07/08/2016 Gastrointestinal No vomiting 07/08/2016 Genitourinary/Nephrology No anuria/oliguria 07/08/2016 Genitourinary/Nephrology No dysuria 07/08/2016 Musculoskeletal stiffness 07/08/2016 Musculoskeletal arthralgia(s) 07/08/2016 Dermatologic No rash 07/08/2016 Dermatologic No sores 07/08/2016 Neurologic No alteration of consciousness 07/08/2016 Neurologic No mental status change 07/08/2016 Psychiatric No anxiety 07/08/2016 Psychiatric No depression 07/08/2016 Hematologic/Lymphatic No abnormal bleeding and bruising 07/08/2016 Hematologic/Lymphatic No abnormal ecchymoses 07/08/2016 Gastrointestinal gastroesophageal reflux 07/08/2016 Constitutional No recent illness 05/08/2016 Constitutional No chills 05/08/2016 Constitutional No fatigue 05/08/2016 Constitutional No fever 05/08/2016 Eyes No eye discharge 05/08/2016 Eyes No eye erythema 05/08/2016 Ears/Nose/Throat/Neck No headache 05/08/2016 Cardiovascular No chest pain/pressure 05/08/2016 Cardiovascular No near-syncope/dizziness 05/08/2016 Cardiovascular No palpitations 05/08/2016 Respiratory No chest congestion 05/08/2016 Respiratory No cough 05/08/2016 Gastrointestinal No abdominal pain 05/08/2016 Gastrointestinal No constipation 05/08/2016 Gastrointestinal No diarrhea 05/08/2016 Gastrointestinal No nausea 05/08/2016 Gastrointestinal No vomiting 05/08/2016 Genitourinary/Nephrology No dysuria 05/08/2016 Musculoskeletal stiffness 05/08/2016 Musculoskeletal No swelling 05/08/2016 Musculoskeletal No muscle weakness 05/08/2016 Musculoskeletal No myalgias 05/08/2016 Dermatologic No rash 05/08/2016 Dermatologic No scar 05/08/2016 Neurologic No alteration of consciousness 05/08/2016 Psychiatric No anxiety 05/08/2016 Psychiatric No depression 05/08/2016 Endocrine diabetes mellitus type 2 05/08/2016 Dermatologic sores 05/08/2016 Constitutional No recent illness 03/28/2016 Constitutional No chills 03/28/2016 Constitutional No fatigue 03/28/2016 Constitutional No fever 03/28/2016 Eyes No eye discharge 03/28/2016 Eyes No eye erythema 03/28/2016 Ears/Nose/Throat/Neck dizziness 03/28/2016 Ears/Nose/Throat/Neck No headache 03/28/2016 Cardiovascular No chest pain/pressure 03/28/2016 Cardiovascular No near-syncope/dizziness 03/28/2016 Cardiovascular No palpitations 03/28/2016 Respiratory No chest congestion 03/28/2016 Respiratory No cough 03/28/2016 Gastrointestinal No abdominal pain 03/28/2016 Gastrointestinal No constipation 03/28/2016 Gastrointestinal No diarrhea 03/28/2016 Gastrointestinal No nausea 03/28/2016 Gastrointestinal No vomiting 03/28/2016 Genitourinary/Nephrology No dysuria 03/28/2016 Musculoskeletal stiffness 03/28/2016 Musculoskeletal No swelling 03/28/2016 Musculoskeletal No muscle weakness 03/28/2016 Musculoskeletal No myalgias 03/28/2016 Dermatologic No rash 03/28/2016 Dermatologic No scar 03/28/2016 Neurologic No alteration of consciousness 03/28/2016 Psychiatric No anxiety 03/28/2016 Psychiatric No depression 03/28/2016 Endocrine diabetes mellitus type 2 03/28/2016 Ears/Nose/Throat/Neck nasal discharge 03/28/2016 Ears/Nose/Throat/Neck nasal allergies 03/28/2016 Constitutional No recent illness 01/22/2016 Constitutional No chills 01/22/2016 Constitutional No fatigue 01/22/2016 Constitutional No fever 01/22/2016 Ears/Nose/Throat/Neck No dizziness 01/22/2016 Ears/Nose/Throat/Neck No headache 01/22/2016 Cardiovascular No chest pain/pressure 01/22/2016 Cardiovascular No near-syncope/dizziness 01/22/2016 Cardiovascular No palpitations 01/22/2016 Respiratory No chest congestion 01/22/2016 Respiratory No cough 01/22/2016 Gastrointestinal No abdominal pain 01/22/2016 Gastrointestinal No constipation 01/22/2016 Gastrointestinal No diarrhea 01/22/2016 Gastrointestinal No nausea 01/22/2016 Gastrointestinal No vomiting 01/22/2016 Genitourinary/Nephrology No dysuria 01/22/2016 Musculoskeletal stiffness 01/22/2016 Musculoskeletal No swelling 01/22/2016 Musculoskeletal No muscle weakness 01/22/2016 Musculoskeletal No myalgias 01/22/2016 Dermatologic No rash 01/22/2016 Dermatologic No scar 01/22/2016 Neurologic No alteration of consciousness 01/22/2016 Psychiatric No anxiety 01/22/2016 Psychiatric No depression 01/22/2016 Endocrine diabetes mellitus type 2 01/22/2016 Eyes No eye discharge 01/22/2016 Eyes No eye erythema 01/22/2016 Constitutional No recent illness 12/21/2015 Constitutional No chills 12/21/2015 Constitutional No fatigue 12/21/2015 Constitutional No fever 12/21/2015 Ears/Nose/Throat/Neck No dizziness 12/21/2015 Ears/Nose/Throat/Neck No headache 12/21/2015 Cardiovascular No chest pain/pressure 12/21/2015 Cardiovascular No near-syncope/dizziness 12/21/2015 Cardiovascular No palpitations 12/21/2015 Respiratory No chest congestion 12/21/2015 Respiratory No cough 12/21/2015 Gastrointestinal No abdominal pain 12/21/2015 Gastrointestinal No constipation 12/21/2015 Gastrointestinal No diarrhea 12/21/2015 Gastrointestinal No nausea 12/21/2015 Gastrointestinal No vomiting 12/21/2015 Genitourinary/Nephrology No dysuria 12/21/2015 Musculoskeletal stiffness 12/21/2015 Musculoskeletal No swelling 12/21/2015 Musculoskeletal No muscle weakness 12/21/2015 Musculoskeletal No myalgias 12/21/2015 Dermatologic pigmentation change 12/21/2015 Dermatologic No rash 12/21/2015 Dermatologic No scar 12/21/2015 Neurologic No alteration of consciousness 12/21/2015 Psychiatric No anxiety 12/21/2015 Psychiatric No depression 12/21/2015 Endocrine diabetes mellitus type 2 12/21/2015 Constitutional No recent illness 11/06/2015 Constitutional No chills 11/06/2015 Constitutional No fatigue 11/06/2015 Constitutional No fever 11/06/2015 Ears/Nose/Throat/Neck No dizziness 11/06/2015 Ears/Nose/Throat/Neck No headache 11/06/2015 Cardiovascular No chest pain/pressure 11/06/2015 Cardiovascular No near-syncope/dizziness 11/06/2015 Cardiovascular No palpitations 11/06/2015 Respiratory No chest congestion 11/06/2015 Respiratory No cough 11/06/2015 Gastrointestinal No abdominal pain 11/06/2015 Gastrointestinal No constipation 11/06/2015 Gastrointestinal No diarrhea 11/06/2015 Gastrointestinal No nausea 11/06/2015 Gastrointestinal No vomiting 11/06/2015 Genitourinary/Nephrology No dysuria 11/06/2015 Musculoskeletal stiffness 11/06/2015 Musculoskeletal No swelling 11/06/2015 Musculoskeletal No muscle weakness 11/06/2015 Musculoskeletal No myalgias 11/06/2015 Dermatologic pigmentation change 11/06/2015 Dermatologic No rash 11/06/2015 Dermatologic No scar 11/06/2015 Neurologic No alteration of consciousness 11/06/2015 Psychiatric No anxiety 11/06/2015 Psychiatric No depression 11/06/2015 Endocrine diabetes mellitus type 2 11/06/2015 Constitutional No recent illness 10/20/2015 Constitutional No anorexia 10/20/2015 Constitutional No night sweats 10/20/2015 Constitutional No chills 10/20/2015 Constitutional No diaphoresis 10/20/2015 Constitutional No fatigue 10/20/2015 Constitutional No fever 10/20/2015 Constitutional No insomnia 10/20/2015 Constitutional No malaise 10/20/2015 Constitutional No weight loss 10/20/2015 Constitutional No weight gain 10/20/2015 Constitutional No obesity 10/20/2015 Genitourinary/Nephrology No dysuria 10/20/2015 Gastrointestinal No diarrhea 10/20/2015 Gastrointestinal No constipation 10/20/2015 Respiratory No cough 10/20/2015 Respiratory No cigarette smoking 10/20/2015 Respiratory No chest tightness 10/20/2015 Respiratory No chest congestion 10/20/2015 Respiratory No dyspnea on exertion 10/20/2015 Respiratory No dyspnea 10/20/2015 Cardiovascular No chest pain/pressure 10/20/2015 Musculoskeletal No myalgias 10/20/2015 Musculoskeletal No muscle weakness 10/20/2015 Musculoskeletal No joint complaint 10/20/2015 Dermatologic No rash 10/20/2015 Psychiatric No anxiety 10/20/2015 Psychiatric No depression 10/20/2015 Ears/Nose/Throat/Neck No headache 10/20/2015 Ears/Nose/Throat/Neck No nasal discharge 10/20/2015 Ears/Nose/Throat/Neck No nasal allergies 10/20/2015 Ears/Nose/Throat/Neck No otalgia 10/20/2015 Ears/Nose/Throat/Neck No otitis media 10/20/2015 Ears/Nose/Throat/Neck No sore throat 10/20/2015 Eyes No vision change 10/20/2015 Constitutional No recent illness 10/09/2015 Constitutional No chills 10/09/2015 Constitutional No fatigue 10/09/2015 Constitutional No fever 10/09/2015 Ears/Nose/Throat/Neck No dizziness 10/09/2015 Ears/Nose/Throat/Neck No headache 10/09/2015 Cardiovascular No chest pain/pressure 10/09/2015 Cardiovascular No near-syncope/dizziness 10/09/2015 Cardiovascular No palpitations 10/09/2015 Respiratory No chest congestion 10/09/2015 Respiratory No cough 10/09/2015 Gastrointestinal No abdominal pain 10/09/2015 Gastrointestinal No constipation 10/09/2015 Gastrointestinal No diarrhea 10/09/2015 Gastrointestinal No nausea 10/09/2015 Gastrointestinal No vomiting 10/09/2015 Genitourinary/Nephrology No dysuria 10/09/2015 Musculoskeletal stiffness 10/09/2015 Musculoskeletal No swelling 10/09/2015 Musculoskeletal No muscle weakness 10/09/2015 Musculoskeletal No myalgias 10/09/2015 Dermatologic No rash 10/09/2015 Dermatologic No scar 10/09/2015 Neurologic No alteration of consciousness 10/09/2015 Psychiatric No anxiety 10/09/2015 Psychiatric No depression 10/09/2015 Endocrine diabetes mellitus type 2 10/09/2015 Dermatologic pigmentation change 10/09/2015 Constitutional No recent illness 09/21/2015 Constitutional No chills 09/21/2015 Constitutional No fatigue 09/21/2015 Constitutional No fever 09/21/2015 Ears/Nose/Throat/Neck No dizziness 09/21/2015 Ears/Nose/Throat/Neck No headache 09/21/2015 Cardiovascular No chest pain/pressure 09/21/2015 Cardiovascular No near-syncope/dizziness 09/21/2015 Cardiovascular No palpitations 09/21/2015 Respiratory No chest congestion 09/21/2015 Respiratory No cough 09/21/2015 Gastrointestinal No abdominal pain 09/21/2015 Gastrointestinal No constipation 09/21/2015 Gastrointestinal No diarrhea 09/21/2015 Gastrointestinal No nausea 09/21/2015 Gastrointestinal No vomiting 09/21/2015 Genitourinary/Nephrology No dysuria 09/21/2015 Musculoskeletal stiffness 09/21/2015 Musculoskeletal No swelling 09/21/2015 Musculoskeletal No muscle weakness 09/21/2015 Musculoskeletal No myalgias 09/21/2015 Dermatologic No rash 09/21/2015 Dermatologic No scar 09/21/2015 Neurologic No alteration of consciousness 09/21/2015 Psychiatric No anxiety 09/21/2015 Psychiatric No depression 09/21/2015 Endocrine diabetes mellitus type 2 09/21/2015 Constitutional No recent illness 08/22/2015 Constitutional No chills 08/22/2015 Constitutional No fatigue 08/22/2015 Constitutional No fever 08/22/2015 Ears/Nose/Throat/Neck No dizziness 08/22/2015 Ears/Nose/Throat/Neck No headache 08/22/2015 Cardiovascular No chest pain/pressure 08/22/2015 Cardiovascular No near-syncope/dizziness 08/22/2015 Cardiovascular No palpitations 08/22/2015 Respiratory No chest congestion 08/22/2015 Respiratory No cough 08/22/2015 Gastrointestinal No abdominal pain 08/22/2015 Gastrointestinal No constipation 08/22/2015 Gastrointestinal No diarrhea 08/22/2015 Gastrointestinal No nausea 08/22/2015 Gastrointestinal No vomiting 08/22/2015 Genitourinary/Nephrology No dysuria 08/22/2015 Musculoskeletal stiffness 08/22/2015 Musculoskeletal No swelling 08/22/2015 Musculoskeletal No muscle weakness 08/22/2015 Musculoskeletal No myalgias 08/22/2015 Dermatologic No rash 08/22/2015 Dermatologic No scar 08/22/2015 Neurologic No alteration of consciousness 08/22/2015 Psychiatric No anxiety 08/22/2015 Psychiatric No depression 08/22/2015 Endocrine diabetes mellitus type 2 08/22/2015 Constitutional No recent illness 04/07/2015 Constitutional No chills 04/07/2015 Constitutional No fatigue 04/07/2015 Constitutional No fever 04/07/2015 Ears/Nose/Throat/Neck No dizziness 04/07/2015 Ears/Nose/Throat/Neck No headache 04/07/2015 Cardiovascular No chest pain/pressure 04/07/2015 Cardiovascular No near-syncope/dizziness 04/07/2015 Cardiovascular No palpitations 04/07/2015 Respiratory No chest congestion 04/07/2015 Respiratory No cough 04/07/2015 Gastrointestinal No abdominal pain 04/07/2015 Gastrointestinal No constipation 04/07/2015 Gastrointestinal No diarrhea 04/07/2015 Gastrointestinal No nausea 04/07/2015 Gastrointestinal No vomiting 04/07/2015 Genitourinary/Nephrology No dysuria 04/07/2015 Musculoskeletal stiffness 04/07/2015 Musculoskeletal No swelling 04/07/2015 Musculoskeletal No muscle weakness 04/07/2015 Musculoskeletal No myalgias 04/07/2015 Dermatologic No rash 04/07/2015 Dermatologic No scar 04/07/2015 Neurologic No alteration of consciousness 04/07/2015 Psychiatric No anxiety 04/07/2015 Psychiatric No depression 04/07/2015 Endocrine diabetes mellitus type 2 04/07/2015 Constitutional No chills 01/02/2015 Constitutional No fatigue 01/02/2015 Constitutional No fever 01/02/2015 Constitutional No recent illness 01/02/2015 Ears/Nose/Throat/Neck No dizziness 01/02/2015 Ears/Nose/Throat/Neck No headache 01/02/2015 Cardiovascular No chest pain/pressure 01/02/2015 Cardiovascular No near-syncope/dizziness 01/02/2015 Cardiovascular No palpitations 01/02/2015 Respiratory No chest congestion 01/02/2015 Respiratory No cough 01/02/2015 Gastrointestinal No abdominal pain 01/02/2015 Gastrointestinal No constipation 01/02/2015 Gastrointestinal No diarrhea 01/02/2015 Gastrointestinal No nausea 01/02/2015 Gastrointestinal No vomiting 01/02/2015 Genitourinary/Nephrology No dysuria 01/02/2015 Neurologic No alteration of consciousness 01/02/2015 Musculoskeletal stiffness 01/02/2015 Musculoskeletal No swelling 01/02/2015 Musculoskeletal No muscle weakness 01/02/2015 Musculoskeletal No myalgias 01/02/2015 Dermatologic No rash 01/02/2015 Dermatologic No scar 01/02/2015 Psychiatric No anxiety 01/02/2015 Psychiatric No depression 01/02/2015 Endocrine diabetes mellitus type 2 01/02/2015 Physical Exam Exam Name System Name Item Name Status Result Effective Dates Notes Full Exam - General 1994 Constitutional general appearance Development: well developed 01/25/2019 None Full Exam - General 1994 Constitutional general appearance Development: appears stated age 0601/25/2019 None Full Exam - General 1994 Constitutional general appearance Overall: in no acute distress 01/25/2019 None Full Exam - General 1994 Constitutional general appearance Evidence of Distress: in no acute distress 01/25/2019 None Full Exam - General 1994 Eyes conjunctiva/eyelids Overall: conjunctiva clear 01/25/2019 None Full Exam - General 1994 Eyes conjunctiva/eyelids Overall: cornea clear 01/25/2019 None Full Exam - General 1994 Eyes conjunctiva/eyelids Overall: eyelids normal 01/25/2019 None Full Exam - General 1994 Eyes pupils and irises Overall: pupils equal, round, reactive to light and accomodation 01/25/2019 None Full Exam - General 1994 Ears/Nose/Throat lips/teeth/gingiva Overall: benign lips 01/25/2019 None Full Exam - General 1994 Ears/Nose/Throat lips/teeth/gingiva Teeth: partially edentulous 01/25/2019 None Full Exam - General 1994 Ears/Nose/Throat oral cavity/pharynx/larynx Overall: oral mucosa clear 01/25/2019 None Full Exam - General 1994 Respiratory auscultation Overall: breath sounds clear bilaterally 01/25/2019 None Full Exam - General 1994 Respiratory respiratory effort/rhythm Overall: no retractions 01/25/2019 None Full Exam - General 1994 Respiratory respiratory effort/rhythm Overall: normal rate 01/25/2019 None Full Exam - General 1994 Cardiovascular extremities Edema present: pitting 01/25/2019 None Full Exam - General 1994 Cardiovascular extremities Edema present: severity 1+ - 4+: 1+ 01/25/2019 None Full Exam - General 1994 Cardiovascular auscultation of heart Overall: regular rate 01/25/2019 None Full Exam - General 1994 Cardiovascular auscultation of heart Overall: normal heart sounds 01/25/2019 None Full Exam - General 1994 Cardiovascular auscultation of heart S3 (ventricular gallop): present 01/25/2019 None Full Exam - General 1994 Abdomen abdominal exam Overall: no tenderness 01/25/2019 None Full Exam - General 1994 Abdomen abdominal exam Overall: normal bowel sounds 01/25/2019 None Full Exam - General 1994 Integument inspection of skin Overall: few scattered moles, no gross abnormalities 01/25/2019 None Full Exam - General 1994 Neurologic mental status Overall: alert 01/25/2019 None Full Exam - General 1994 Neurologic mental status Overall: oriented 01/25/2019 None Full Exam - General 1994 Psychiatric orientation/consciousness Overall: oriented to person, place and time 01/25/2019 None Full Exam - General 1994 Psychiatric mood and affect Overall: normal mood and affect 01/25/2019 None Full Exam - General 1994 Psychiatric appearance Overall: well-groomed, good eye contact 01/25/2019 None Full Exam - General 1994 Psychiatric speech Overall: normal quality, no aphasia 01/25/2019 None Full Exam - General 1994 Constitutional general appearance Development: well developed 12/25/2018 None Full Exam - General 1994 Constitutional general appearance Development: appears stated age 0512/25/2018 None Full Exam - General 1994 Constitutional general appearance Overall: in no acute distress 12/25/2018 None Full Exam - General 1994 Constitutional general appearance Evidence of Distress: in no acute distress 12/25/2018 None Full Exam - General 1994 Eyes conjunctiva/eyelids Overall: conjunctiva clear 12/25/2018 None Full Exam - General 1994 Eyes conjunctiva/eyelids Overall: cornea clear 12/25/2018 None Full Exam - General 1994 Eyes conjunctiva/eyelids Overall: eyelids normal 12/25/2018 None Full Exam - General 1994 Eyes pupils and irises Overall: pupils equal, round, reactive to light and accomodation 12/25/2018 None Full Exam - General 1994 Ears/Nose/Throat lips/teeth/gingiva Overall: benign lips 12/25/2018 None Full Exam - General 1994 Ears/Nose/Throat lips/teeth/gingiva Teeth: partially edentulous 12/25/2018 None Full Exam - General 1994 Ears/Nose/Throat oral cavity/pharynx/larynx Overall: oral mucosa clear 12/25/2018 None Full Exam - General 1994 Respiratory auscultation Overall: breath sounds clear bilaterally 12/25/2018 None Full Exam - General 1994 Respiratory respiratory effort/rhythm Overall: no retractions 12/25/2018 None Full Exam - General 1994 Respiratory respiratory effort/rhythm Overall: normal rate 12/25/2018 None Full Exam - General 1994 Cardiovascular extremities Edema present: pitting 12/25/2018 None Full Exam - General 1994 Cardiovascular extremities Edema present: severity 1+ - 4+: 1+ 12/25/2018 None Full Exam - General 1994 Cardiovascular auscultation of heart Overall: regular rate 12/25/2018 None Full Exam - General 1994 Cardiovascular auscultation of heart Overall: normal heart sounds 12/25/2018 None Full Exam - General 1994 Cardiovascular auscultation of heart S3 (ventricular gallop): present 12/25/2018 None Full Exam - General 1994 Abdomen abdominal exam Overall: no tenderness 12/25/2018 None Full Exam - General 1994 Abdomen abdominal exam Overall: normal bowel sounds 12/25/2018 None Full Exam - General 1994 Neurologic mental status Overall: alert 12/25/2018 None Full Exam - General 1994 Neurologic mental status Overall: oriented 12/25/2018 None Full Exam - General 1994 Psychiatric orientation/consciousness Overall: oriented to person, place and time 12/25/2018 None Full Exam - General 1994 Psychiatric mood and affect Overall: normal mood and affect 12/25/2018 None Full Exam - General 1994 Psychiatric appearance Overall: well-groomed, good eye contact 12/25/2018 None Full Exam - General 1994 Psychiatric speech Overall: normal quality, no aphasia 12/25/2018 None Full Exam - General 1994 Integument inspection of skin Overall: few scattered moles, no gross abnormalities 12/25/2018 None Full Exam - General 1994 Constitutional general appearance Development: well developed 10/27/2018 None Full Exam - General 1994 Constitutional general appearance Development: appears stated age 0310/27/2018 None Full Exam - General 1994 Constitutional general appearance Overall: in no acute distress 10/27/2018 None Full Exam - General 1994 Constitutional general appearance Evidence of Distress: in no acute distress 10/27/2018 None Full Exam - General 1994 Eyes conjunctiva/eyelids Overall: conjunctiva clear 10/27/2018 None Full Exam - General 1994 Eyes conjunctiva/eyelids Overall: cornea clear 10/27/2018 None Full Exam - General 1994 Eyes conjunctiva/eyelids Overall: eyelids normal 10/27/2018 None Full Exam - General 1994 Eyes pupils and irises Overall: pupils equal, round, reactive to light and accomodation 10/27/2018 None Full Exam - General 1994 Ears/Nose/Throat lips/teeth/gingiva Overall: benign lips 10/27/2018 None Full Exam - General 1994 Ears/Nose/Throat lips/teeth/gingiva Teeth: partially edentulous 10/27/2018 None Full Exam - General 1994 Ears/Nose/Throat oral cavity/pharynx/larynx Overall: oral mucosa clear 10/27/2018 None Full Exam - General 1994 Respiratory auscultation Overall: breath sounds clear bilaterally 10/27/2018 None Full Exam - General 1994 Respiratory respiratory effort/rhythm Overall: no retractions 10/27/2018 None Full Exam - General 1994 Respiratory respiratory effort/rhythm Overall: normal rate 10/27/2018 None Full Exam - General 1994 Cardiovascular extremities Edema present: pitting 10/27/2018 None Full Exam - General 1994 Cardiovascular extremities Edema present: severity 1+ - 4+: 1+ 10/27/2018 None Full Exam - General 1994 Cardiovascular auscultation of heart Overall: regular rate 10/27/2018 None Full Exam - General 1994 Cardiovascular auscultation of heart Overall: normal heart sounds 10/27/2018 None Full Exam - General 1994 Cardiovascular auscultation of heart S3 (ventricular gallop): present 10/27/2018 None Full Exam - General 1994 Abdomen abdominal exam Overall: no tenderness 10/27/2018 None Full Exam - General 1994 Abdomen abdominal exam Overall: normal bowel sounds 10/27/2018 None Full Exam - General 1994 Neurologic mental status Overall: alert 10/27/2018 None Full Exam - General 1994 Neurologic mental status Overall: oriented 10/27/2018 None Full Exam - General 1994 Psychiatric orientation/consciousness Overall: oriented to person, place and time 10/27/2018 None Full Exam - General 1994 Psychiatric mood and affect Overall: normal mood and affect 10/27/2018 None Full Exam - General 1994 Psychiatric appearance Overall: well-groomed, good eye contact 10/27/2018 None Full Exam - General 1994 Psychiatric speech Overall: normal quality, no aphasia 10/27/2018 None Full Exam - General 1994 Integument inspection of skin Location: right foot 10/27/2018 dry blister of heel medially on right Full Exam - General 1994 Constitutional general appearance Overall: in no acute distress 08/26/2018 None Full Exam - General 1995 Constitutional general appearance Overall: well developed 08/26/2018 None Full Exam - General 1995 Constitutional general appearance Overall: well nourished 08/26/2018 None Full Exam - General 1995 Eyes conjunctiva/eyelids Overall: eyelids normal 08/26/2018 None Full Exam - General 1995 Eyes conjunctiva/eyelids Overall: cornea clear 08/26/2018 None Full Exam - General 1995 Eyes conjunctiva/eyelids Overall: conjunctiva clear 08/26/2018 None Full Exam - General 1994 Eyes pupils and irises Overall: pupils equal, round, reactive to light and accomodation 08/26/2018 None Full Exam - General 1994 Ears/Nose/Throat lips/teeth/gingiva Overall: benign lips 08/26/2018 None Full Exam - General 1994 Ears/Nose/Throat oral cavity/pharynx/larynx Overall: oral mucosa clear 08/26/2018 None Full Exam - General 1994 Respiratory respiratory effort/rhythm Overall: normal rate 08/26/2018 None Full Exam - General 1994 Respiratory respiratory effort/rhythm Overall: no retractions 08/26/2018 None Full Exam - General 1994 Respiratory auscultation Overall: breath sounds clear bilaterally 08/26/2018 None Full Exam - General 1994 Cardiovascular auscultation of heart Overall: regular rate 08/26/2018 None Full Exam - General 1994 Musculoskeletal head and neck Overall: head atraumatic 08/26/2018 None Full Exam - General 1994 Neurologic cranial nerves Overall: crainial nerves 2 - 12 grossly intact 08/26/2018 None Full Exam - General 1994 Psychiatric orientation/consciousness Overall: oriented to person, place and time 08/26/2018 None Full Exam - General 1994 Psychiatric mood and affect Overall: normal mood and affect 08/26/2018 None Full Exam - General 1994 Constitutional general appearance Development: well developed 07/20/2018 None Full Exam - General 1994 Constitutional general appearance Development: appears stated age 1207/20/2018 None Full Exam - General 1994 Constitutional general appearance Overall: in no acute distress 07/20/2018 None Full Exam - General 1994 Constitutional general appearance Evidence of Distress: in no acute distress 07/20/2018 None Full Exam - General 1994 Eyes conjunctiva/eyelids Overall: conjunctiva clear 07/20/2018 None Full Exam - General 1994 Eyes conjunctiva/eyelids Overall: cornea clear 07/20/2018 None Full Exam - General 1994 Eyes conjunctiva/eyelids Overall: eyelids normal 07/20/2018 None Full Exam - General 1994 Eyes pupils and irises Overall: pupils equal, round, reactive to light and accomodation 07/20/2018 None Full Exam - General 1994 Ears/Nose/Throat lips/teeth/gingiva Overall: benign lips 07/20/2018 None Full Exam - General 1994 Ears/Nose/Throat lips/teeth/gingiva Teeth: partially edentulous 07/20/2018 None Full Exam - General 1994 Ears/Nose/Throat oral cavity/pharynx/larynx Overall: oral mucosa clear 07/20/2018 None Full Exam - General 1994 Respiratory auscultation Overall: breath sounds clear bilaterally 07/20/2018 None Full Exam - General 1994 Respiratory respiratory effort/rhythm Overall: no retractions 07/20/2018 None Full Exam - General 1994 Respiratory respiratory effort/rhythm Overall: normal rate 07/20/2018 None Full Exam - General 1994 Cardiovascular auscultation of heart Overall: regular rate 07/20/2018 None Full Exam - General 1994 Cardiovascular auscultation of heart Overall: normal heart sounds 07/20/2018 None Full Exam - General 1994 Cardiovascular auscultation of heart S3 (ventricular gallop): present 07/20/2018 None Full Exam - General 1994 Abdomen abdominal exam Overall: no tenderness 07/20/2018 None Full Exam - General 1994 Abdomen abdominal exam Overall: normal bowel sounds 07/20/2018 None Full Exam - General 1994 Neurologic mental status Overall: alert 07/20/2018 None Full Exam - General 1994 Neurologic mental status Overall: oriented 07/20/2018 None Full Exam - General 1994 Psychiatric orientation/consciousness Overall: oriented to person, place and time 07/20/2018 None Full Exam - General 1994 Psychiatric mood and affect Overall: normal mood and affect 07/20/2018 None Full Exam - General 1994 Psychiatric appearance Overall: well-groomed, good eye contact 07/20/2018 None Full Exam - General 1994 Psychiatric speech Overall: normal quality, no aphasia 07/20/2018 None Full Exam - General 1994 Cardiovascular extremities Edema present: pitting 07/20/2018 None Full Exam - General 1994 Cardiovascular extremities Edema present: severity 1+ - 4+: 1+ 07/20/2018 None Full Exam - General 1994 Constitutional general appearance Development: well developed 03/05/2018 None Full Exam - General 1994 Constitutional general appearance Development: appears stated age 0703/05/2018 None Full Exam - General 1994 Constitutional general appearance Overall: in no acute distress 03/05/2018 None Full Exam - General 1994 Constitutional general appearance Evidence of Distress: in no acute distress 03/05/2018 None Full Exam - General 1994 Eyes conjunctiva/eyelids Overall: conjunctiva clear 03/05/2018 None Full Exam - General 1994 Eyes conjunctiva/eyelids Overall: cornea clear 03/05/2018 None Full Exam - General 1994 Eyes conjunctiva/eyelids Overall: eyelids normal 03/05/2018 None Full Exam - General 1994 Eyes pupils and irises Overall: pupils equal, round, reactive to light and accomodation 03/05/2018 None Full Exam - General 1994 Ears/Nose/Throat lips/teeth/gingiva Overall: benign lips 03/05/2018 None Full Exam - General 1994 Ears/Nose/Throat oral cavity/pharynx/larynx Overall: oral mucosa clear 03/05/2018 None Full Exam - General 1994 Respiratory auscultation Overall: breath sounds clear bilaterally 03/05/2018 None Full Exam - General 1994 Respiratory respiratory effort/rhythm Overall: no retractions 03/05/2018 None Full Exam - General 1994 Respiratory respiratory effort/rhythm Overall: normal rate 03/05/2018 None Full Exam - General 1994 Cardiovascular auscultation of heart Overall: regular rate 03/05/2018 None Full Exam - General 1994 Cardiovascular auscultation of heart Overall: normal heart sounds 03/05/2018 None Full Exam - General 1994 Cardiovascular auscultation of heart S3 (ventricular gallop): present 03/05/2018 None Full Exam - General 1994 Abdomen abdominal exam Overall: no tenderness 03/05/2018 None Full Exam - General 1994 Abdomen abdominal exam Overall: normal bowel sounds 03/05/2018 None Full Exam - General 1994 Neurologic mental status Overall: alert 03/05/2018 None Full Exam - General 1994 Neurologic mental status Overall: oriented 03/05/2018 None Full Exam - General 1994 Psychiatric orientation/consciousness Overall: oriented to person, place and time 03/05/2018 None Full Exam - General 1994 Psychiatric mood and affect Overall: normal mood and affect 03/05/2018 None Full Exam - General 1994 Psychiatric appearance Overall: well-groomed, good eye contact 03/05/2018 None Full Exam - General 1994 Psychiatric speech Overall: normal quality, no aphasia 03/05/2018 None Full Exam - General 1994 Ears/Nose/Throat lips/teeth/gingiva Teeth: partially edentulous 03/05/2018 None Full Exam - General 1994 Musculoskeletal digits and nails DIPs: pain with ROM 03/05/2018 clicking IP thumb Full Exam - General 1994 Constitutional general appearance Development: well developed 10/30/2017 None Full Exam - General 1994 Constitutional general appearance Development: appears stated age 0310/30/2017 None Full Exam - General 1994 Constitutional general appearance Overall: in no acute distress 10/30/2017 None Full Exam - General 1994 Constitutional general appearance Evidence of Distress: in no acute distress 10/30/2017 None Full Exam - General 1994 Eyes conjunctiva/eyelids Overall: conjunctiva clear 10/30/2017 None Full Exam - General 1994 Eyes conjunctiva/eyelids Overall: cornea clear 10/30/2017 None Full Exam - General 1994 Eyes conjunctiva/eyelids Overall: eyelids normal 10/30/2017 None Full Exam - General 1994 Eyes pupils and irises Overall: pupils equal, round, reactive to light and accomodation 10/30/2017 None Full Exam - General 1994 Ears/Nose/Throat lips/teeth/gingiva Overall: benign lips 10/30/2017 None Full Exam - General 1994 Ears/Nose/Throat oral cavity/pharynx/larynx Overall: oral mucosa clear 10/30/2017 None Full Exam - General 1994 Respiratory auscultation Overall: breath sounds clear bilaterally 10/30/2017 None Full Exam - General 1994 Respiratory respiratory effort/rhythm Overall: no retractions 10/30/2017 None Full Exam - General 1994 Respiratory respiratory effort/rhythm Overall: normal rate 10/30/2017 None Full Exam - General 1994 Cardiovascular auscultation of heart Overall: regular rate 10/30/2017 None Full Exam - General 1994 Cardiovascular auscultation of heart Overall: normal heart sounds 10/30/2017 None Full Exam - General 1994 Cardiovascular auscultation of heart S3 (ventricular gallop): present 10/30/2017 None Full Exam - General 1994 Abdomen abdominal exam Overall: no tenderness 10/30/2017 None Full Exam - General 1994 Abdomen abdominal exam Overall: normal bowel sounds 10/30/2017 None Full Exam - General 1994 Musculoskeletal digits and nails DIPs: pain with ROM 10/30/2017 clicking IP thumb Full Exam - General 1994 Neurologic mental status Overall: alert 10/30/2017 None Full Exam - General 1994 Neurologic mental status Overall: oriented 10/30/2017 None Full Exam - General 1994 Psychiatric orientation/consciousness Overall: oriented to person, place and time 10/30/2017 None Full Exam - General 1994 Psychiatric mood and affect Overall: normal mood and affect 10/30/2017 None Full Exam - General 1994 Psychiatric appearance Overall: well-groomed, good eye contact 10/30/2017 None Full Exam - General 1994 Psychiatric speech Overall: normal quality, no aphasia 10/30/2017 None Full Exam - General 1994 Constitutional general appearance Development: well developed 07/03/2017 None Full Exam - General 1994 Constitutional general appearance Development: appears stated age 1107/03/2017 None Full Exam - General 1994 Constitutional general appearance Overall: in no acute distress 07/03/2017 None Full Exam - General 1994 Constitutional general appearance Evidence of Distress: in no acute distress 07/03/2017 None Full Exam - General 1994 Eyes conjunctiva/eyelids Overall: conjunctiva clear 07/03/2017 None Full Exam - General 1994 Eyes conjunctiva/eyelids Overall: cornea clear 07/03/2017 None Full Exam - General 1994 Eyes conjunctiva/eyelids Overall: eyelids normal 07/03/2017 None Full Exam - General 1994 Eyes pupils and irises Overall: pupils equal, round, reactive to light and accomodation 07/03/2017 None Full Exam - General 1994 Ears/Nose/Throat lips/teeth/gingiva Overall: benign lips 07/03/2017 None Full Exam - General 1994 Ears/Nose/Throat oral cavity/pharynx/larynx Overall: oral mucosa clear 07/03/2017 None Full Exam - General 1994 Respiratory auscultation Overall: breath sounds clear bilaterally 07/03/2017 None Full Exam - General 1994 Respiratory respiratory effort/rhythm Overall: no retractions 07/03/2017 None Full Exam - General 1994 Respiratory respiratory effort/rhythm Overall: normal rate 07/03/2017 None Full Exam - General 1994 Cardiovascular auscultation of heart Overall: regular rate 07/03/2017 None Full Exam - General 1994 Cardiovascular auscultation of heart Overall: normal heart sounds 07/03/2017 None Full Exam - General 1994 Cardiovascular auscultation of heart S3 (ventricular gallop): present 07/03/2017 None Full Exam - General 1994 Abdomen abdominal exam Overall: no tenderness 07/03/2017 None Full Exam - General 1994 Abdomen abdominal exam Overall: normal bowel sounds 07/03/2017 None Full Exam - General 1994 Neurologic mental status Overall: alert 07/03/2017 None Full Exam - General 1994 Neurologic mental status Overall: oriented 07/03/2017 None Full Exam - General 1994 Psychiatric orientation/consciousness Overall: oriented to person, place and time 07/03/2017 None Full Exam - General 1994 Psychiatric mood and affect Overall: normal mood and affect 07/03/2017 None Full Exam - General 1994 Psychiatric appearance Overall: well-groomed, good eye contact 07/03/2017 None Full Exam - General 1994 Psychiatric speech Overall: normal quality, no aphasia 07/03/2017 None Full Exam - General 1994 Musculoskeletal digits and nails DIPs: pain with ROM 07/03/2017 clicking IP thumb Full Exam - General 1994 Constitutional general appearance Development: well developed 04/03/2017 None Full Exam - General 1994 Constitutional general appearance Development: appears stated age 0804/03/2017 None Full Exam - General 1994 Constitutional general appearance Overall: in no acute distress 04/03/2017 None Full Exam - General 1994 Constitutional general appearance Evidence of Distress: in no acute distress 04/03/2017 None Full Exam - General 1994 Eyes conjunctiva/eyelids Overall: conjunctiva clear 04/03/2017 None Full Exam - General 1994 Eyes conjunctiva/eyelids Overall: cornea clear 04/03/2017 None Full Exam - General 1994 Eyes conjunctiva/eyelids Overall: eyelids normal 04/03/2017 None Full Exam - General 1994 Eyes pupils and irises Overall: pupils equal, round, reactive to light and accomodation 04/03/2017 None Full Exam - General 1994 Ears/Nose/Throat lips/teeth/gingiva Overall: benign lips 04/03/2017 None Full Exam - General 1994 Ears/Nose/Throat oral cavity/pharynx/larynx Overall: oral mucosa clear 04/03/2017 None Full Exam - General 1994 Respiratory auscultation Overall: breath sounds clear bilaterally 04/03/2017 None Full Exam - General 1994 Respiratory respiratory effort/rhythm Overall: no retractions 04/03/2017 None Full Exam - General 1994 Respiratory respiratory effort/rhythm Overall: normal rate 04/03/2017 None Full Exam - General 1994 Cardiovascular auscultation of heart Overall: regular rate 04/03/2017 None Full Exam - General 1994 Cardiovascular auscultation of heart Overall: normal heart sounds 04/03/2017 None Full Exam - General 1994 Cardiovascular auscultation of heart S3 (ventricular gallop): present 04/03/2017 None Full Exam - General 1994 Abdomen abdominal exam Overall: no tenderness 04/03/2017 None Full Exam - General 1994 Abdomen abdominal exam Overall: normal bowel sounds 04/03/2017 None Full Exam - General 1994 Neurologic mental status Overall: alert 04/03/2017 None Full Exam - General 1994 Neurologic mental status Overall: oriented 04/03/2017 None Full Exam - General 1994 Psychiatric orientation/consciousness Overall: oriented to person, place and time 04/03/2017 None Full Exam - General 1994 Psychiatric mood and affect Overall: normal mood and affect 04/03/2017 None Full Exam - General 1994 Psychiatric appearance Overall: well-groomed, good eye contact 04/03/2017 None Full Exam - General 1994 Psychiatric speech Overall: normal quality, no aphasia 04/03/2017 None Full Exam - General 1994 Constitutional general appearance Development: well developed 12/31/2016 None Full Exam - General 1994 Constitutional general appearance Development: appears stated age 0512/31/2016 None Full Exam - General 1994 Constitutional general appearance Overall: in no acute distress 12/31/2016 None Full Exam - General 1994 Constitutional general appearance Evidence of Distress: in no acute distress 12/31/2016 None Full Exam - General 1994 Eyes conjunctiva/eyelids Overall: conjunctiva clear 12/31/2016 None Full Exam - General 1994 Eyes conjunctiva/eyelids Overall: cornea clear 12/31/2016 None Full Exam - General 1994 Eyes conjunctiva/eyelids Overall: eyelids normal 12/31/2016 None Full Exam - General 1994 Eyes pupils and irises Overall: pupils equal, round, reactive to light and accomodation 12/31/2016 None Full Exam - General 1994 Ears/Nose/Throat lips/teeth/gingiva Overall: benign lips 12/31/2016 None Full Exam - General 1994 Ears/Nose/Throat oral cavity/pharynx/larynx Overall: oral mucosa clear 12/31/2016 None Full Exam - General 1994 Respiratory auscultation Overall: breath sounds clear bilaterally 12/31/2016 None Full Exam - General 1994 Respiratory respiratory effort/rhythm Overall: no retractions 12/31/2016 None Full Exam - General 1994 Respiratory respiratory effort/rhythm Overall: normal rate 12/31/2016 None Full Exam - General 1994 Cardiovascular auscultation of heart Overall: regular rate 12/31/2016 None Full Exam - General 1994 Cardiovascular auscultation of heart Overall: normal heart sounds 12/31/2016 None Full Exam - General 1994 Abdomen abdominal exam Overall: no tenderness 12/31/2016 None Full Exam - General 1994 Abdomen abdominal exam Overall: normal bowel sounds 12/31/2016 None Full Exam - General 1994 Neurologic mental status Overall: alert 12/31/2016 None Full Exam - General 1994 Neurologic mental status Overall: oriented 12/31/2016 None Full Exam - General 1994 Psychiatric orientation/consciousness Overall: oriented to person, place and time 12/31/2016 None Full Exam - General 1994 Psychiatric mood and affect Overall: normal mood and affect 12/31/2016 None Full Exam - General 1994 Psychiatric appearance Overall: well-groomed, good eye contact 12/31/2016 None Full Exam - General 1994 Psychiatric speech Overall: normal quality, no aphasia 12/31/2016 None Full Exam - General 1994 Cardiovascular auscultation of heart S3 (ventricular gallop): present 12/31/2016 None Full Exam - General 1994 Constitutional general appearance Development: well developed 10/07/2016 None Full Exam - General 1994 Constitutional general appearance Development: appears stated age 0210/07/2016 None Full Exam - General 1994 Eyes conjunctiva/eyelids Overall: conjunctiva clear 10/07/2016 None Full Exam - General 1994 Eyes conjunctiva/eyelids Overall: cornea clear 10/07/2016 None Full Exam - General 1994 Eyes conjunctiva/eyelids Overall: eyelids normal 10/07/2016 None Full Exam - General 1994 Eyes pupils and irises Overall: pupils equal, round, reactive to light and accomodation 10/07/2016 None Full Exam - General 1994 Ears/Nose/Throat external nose Overall: no masses 10/07/2016 None Full Exam - General 1994 Ears/Nose/Throat external nose Overall: non-tender 10/07/2016 None Full Exam - General 1994 Ears/Nose/Throat external nose Lesion: flat 10/07/2016 None Full Exam - General 1994 Ears/Nose/Throat external nose Lesion: size (cm): 3 10/07/2016 None Full Exam - General 1994 Constitutional general appearance Overall: in no acute distress 10/07/2016 None Full Exam - General 1994 Constitutional general appearance Evidence of Distress: in no acute distress 10/07/2016 None Full Exam - General 1994 Ears/Nose/Throat otoscopic exam External auditory canal: partial cerumen occlusion 10/07/2016 None Full Exam - General 1994 Ears/Nose/Throat lips/teeth/gingiva Overall: benign lips 10/07/2016 None Full Exam - General 1994 Ears/Nose/Throat oral cavity/pharynx/larynx Overall: oral mucosa clear 10/07/2016 None Full Exam - General 1994 Respiratory auscultation Overall: breath sounds clear bilaterally 10/07/2016 None Full Exam - General 1994 Respiratory respiratory effort/rhythm Overall: no retractions 10/07/2016 None Full Exam - General 1994 Respiratory respiratory effort/rhythm Overall: normal rate 10/07/2016 None Full Exam - General 1994 Cardiovascular auscultation of heart Overall: regular rate 10/07/2016 None Full Exam - General 1994 Cardiovascular auscultation of heart Overall: normal heart sounds 10/07/2016 None Full Exam - General 1994 Abdomen abdominal exam Overall: no tenderness 10/07/2016 None Full Exam - General 1994 Abdomen abdominal exam Overall: normal bowel sounds 10/07/2016 None Full Exam - General 1994 Neurologic mental status Overall: alert 10/07/2016 None Full Exam - General 1994 Neurologic mental status Overall: oriented 10/07/2016 None Full Exam - General 1994 Psychiatric orientation/consciousness Overall: oriented to person, place and time 10/07/2016 None Full Exam - General 1994 Psychiatric mood and affect Overall: normal mood and affect 10/07/2016 None Full Exam - General 1994 Psychiatric appearance Overall: well-groomed, good eye contact 10/07/2016 None Full Exam - General 1994 Psychiatric speech Overall: normal quality, no aphasia 10/07/2016 None Full Exam - General 1994 Cardiovascular auscultation of heart Murmur: previously known murmur unchanged 10/07/2016 None Full Exam - General 1994 Cardiovascular auscultation of heart Systolic murmur grade: III/ 10/07/2016 None Full Exam - General 1994 Cardiovascular auscultation of heart Systolic murmur: early systolic 10/07/2016 None Full Exam - General 1994 Integument inspection of skin Location: face 10/07/2016 nose-AK Full Exam - General 1994 Constitutional general appearance Development: well developed 09/19/2016 None Full Exam - General 1994 Constitutional general appearance Development: appears stated age 0209/19/2016 None Full Exam - General 1994 Constitutional general appearance Overall: in no acute distress 09/19/2016 None Full Exam - General 1995 Constitutional general appearance Evidence of Distress: in no acute distress 09/19/2016 None Full Exam - General 1995 Eyes conjunctiva/eyelids Overall: conjunctiva clear 09/19/2016 None Full Exam - General 1995 Eyes conjunctiva/eyelids Overall: cornea clear 09/19/2016 None Full Exam - General 1994 Eyes pupils and irises Overall: pupils equal, round, reactive to light and accomodation 09/19/2016 None Full Exam - General 1994 Ears/Nose/Throat otoscopic exam External auditory canal: partial cerumen occlusion 09/19/2016 None Full Exam - General 1995 Ears/Nose/Throat lips/teeth/gingiva Overall: benign lips 09/19/2016 None Full Exam - General 1994 Ears/Nose/Throat oral cavity/pharynx/larynx Overall: oral mucosa clear 09/19/2016 None Full Exam - General 1994 Respiratory auscultation Overall: breath sounds clear bilaterally 09/19/2016 None Full Exam - General 1994 Respiratory respiratory effort/rhythm Overall: no retractions 09/19/2016 None Full Exam - General 1994 Respiratory respiratory effort/rhythm Overall: normal rate 09/19/2016 None Full Exam - General 1994 Cardiovascular auscultation of heart Overall: regular rate 09/19/2016 None Full Exam - General 1994 Cardiovascular auscultation of heart Overall: normal heart sounds 09/19/2016 None Full Exam - General 1994 Cardiovascular auscultation of heart Overall: no murmurs 09/19/2016 None Full Exam - General 1994 Abdomen abdominal exam Overall: no tenderness 09/19/2016 None Full Exam - General 1994 Abdomen abdominal exam Overall: normal bowel sounds 09/19/2016 None Full Exam - General 1994 Neurologic mental status Overall: alert 09/19/2016 None Full Exam - General 1994 Neurologic mental status Overall: oriented 09/19/2016 None Full Exam - General 1994 Psychiatric orientation/consciousness Overall: oriented to person, place and time 09/19/2016 None Full Exam - General 1994 Psychiatric mood and affect Overall: normal mood and affect 09/19/2016 None Full Exam - General 1994 Psychiatric appearance Overall: well-groomed, good eye contact 09/19/2016 None Full Exam - General 1994 Psychiatric speech Overall: normal quality, no aphasia 09/19/2016 None Full Exam - General 1994 Constitutional general appearance Development: well developed 07/08/2016 None Full Exam - General 1994 Constitutional general appearance Development: appears stated age 1107/08/2016 None Full Exam - General 1994 Constitutional general appearance Overall: in no acute distress 07/08/2016 None Full Exam - General 1994 Constitutional general appearance Evidence of Distress: in no acute distress 07/08/2016 None Full Exam - General 1994 Eyes conjunctiva/eyelids Overall: conjunctiva clear 07/08/2016 None Full Exam - General 1994 Eyes conjunctiva/eyelids Overall: cornea clear 07/08/2016 None Full Exam - General 1994 Eyes pupils and irises Overall: pupils equal, round, reactive to light and accomodation 07/08/2016 None Full Exam - General 1994 Ears/Nose/Throat otoscopic exam External auditory canal: partial cerumen occlusion 07/08/2016 None Full Exam - General 1994 Ears/Nose/Throat lips/teeth/gingiva Overall: benign lips 07/08/2016 None Full Exam - General 1994 Ears/Nose/Throat oral cavity/pharynx/larynx Overall: oral mucosa clear 07/08/2016 None Full Exam - General 1994 Respiratory auscultation Overall: breath sounds clear bilaterally 07/08/2016 None Full Exam - General 1994 Respiratory respiratory effort/rhythm Overall: no retractions 07/08/2016 None Full Exam - General 1994 Respiratory respiratory effort/rhythm Overall: normal rate 07/08/2016 None Full Exam - General 1994 Cardiovascular auscultation of heart Overall: regular rate 07/08/2016 None Full Exam - General 1994 Cardiovascular auscultation of heart Overall: normal heart sounds 07/08/2016 None Full Exam - General 1994 Cardiovascular auscultation of heart Overall: no murmurs 07/08/2016 None Full Exam - General 1994 Abdomen abdominal exam Overall: no tenderness 07/08/2016 None Full Exam - General 1994 Abdomen abdominal exam Overall: normal bowel sounds 07/08/2016 None Full Exam - General 1994 Neurologic mental status Overall: alert 07/08/2016 None Full Exam - General 1994 Neurologic mental status Overall: oriented 07/08/2016 None Full Exam - General 1994 Psychiatric orientation/consciousness Overall: oriented to person, place and time 07/08/2016 None Full Exam - General 1994 Psychiatric mood and affect Overall: normal mood and affect 07/08/2016 None Full Exam - General 1994 Psychiatric appearance Overall: well-groomed, good eye contact 07/08/2016 None Full Exam - General 1994 Psychiatric speech Overall: normal quality, no aphasia 07/08/2016 None Full Exam - General 1994 Constitutional general appearance Development: well developed 05/08/2016 None Full Exam - General 1994 Constitutional general appearance Development: appears stated age 0905/08/2016 None Full Exam - General 1994 Constitutional general appearance Hygiene/Attention to Grooming: good hygiene 05/08/2016 None Full Exam - General 1994 Eyes conjunctiva/eyelids Overall: conjunctiva clear 05/08/2016 None Full Exam - General 1994 Eyes conjunctiva/eyelids Overall: cornea clear 05/08/2016 None Full Exam - General 1994 Eyes conjunctiva/eyelids Overall: eyelids normal 05/08/2016 None Full Exam - General 1994 Eyes pupils and irises Overall: pupils equal, round, reactive to light and accomodation 05/08/2016 None Full Exam - General 1994 Ears/Nose/Throat otoscopic exam Overall: external auditory canals clear 05/08/2016 None Full Exam - General 1994 Ears/Nose/Throat otoscopic exam Overall: tympanic membranes clear 05/08/2016 None Full Exam - General 1994 Ears/Nose/Throat lips/teeth/gingiva Overall: benign lips 05/08/2016 None Full Exam - General 1994 Ears/Nose/Throat lips/teeth/gingiva Overall: normal dentition 05/08/2016 None Full Exam - General 1994 Ears/Nose/Throat oral cavity/pharynx/larynx Overall: oral mucosa clear 05/08/2016 None Full Exam - General 1994 Ears/Nose/Throat oral cavity/pharynx/larynx Overall: oropharyngeal mucosa clear 05/08/2016 None Full Exam - General 1994 Ears/Nose/Throat oral cavity/pharynx/larynx Overall: hypopharynx benign 05/08/2016 None Full Exam - General 1994 Ears/Nose/Throat oral cavity/pharynx/larynx Overall: no masses 05/08/2016 None Full Exam - General 1994 Respiratory auscultation Overall: breath sounds clear bilaterally 05/08/2016 None Full Exam - General 1994 Respiratory respiratory effort/rhythm Overall: no retractions 05/08/2016 None Full Exam - General 1994 Respiratory respiratory effort/rhythm Overall: normal rate 05/08/2016 None Full Exam - General 1994 Cardiovascular extremities Overall: no clubbing 05/08/2016 None Full Exam - General 1994 Cardiovascular auscultation of heart Overall: regular rate 05/08/2016 None Full Exam - General 1994 Cardiovascular auscultation of heart Overall: normal heart sounds 05/08/2016 None Full Exam - General 1994 Musculoskeletal head and neck Overall: head atraumatic 05/08/2016 None Full Exam - General 1994 Musculoskeletal head and neck Overall: cervical spine benign 05/08/2016 None Full Exam - General 1994 Neurologic deep tendon reflexes Overall: deep tendon reflexes intact 05/08/2016 None Full Exam - General 1994 Neurologic cranial nerves Overall: crainial nerves 2 - 12 grossly intact 05/08/2016 None Full Exam - General 1994 Psychiatric orientation/consciousness Overall: oriented to person, place and time 05/08/2016 None Full Exam - General 1994 Psychiatric mood and affect Overall: normal mood and affect 05/08/2016 None Full Exam - General 1994 Constitutional general appearance Development: well developed 03/28/2016 None Full Exam - General 1994 Constitutional general appearance Development: appears stated age 0803/28/2016 None Full Exam - General 1994 Constitutional general appearance Hygiene/Attention to Grooming: good hygiene 03/28/2016 None Full Exam - General 1994 Eyes conjunctiva/eyelids Overall: conjunctiva clear 03/28/2016 None Full Exam - General 1994 Eyes conjunctiva/eyelids Overall: cornea clear 03/28/2016 None Full Exam - General 1994 Eyes conjunctiva/eyelids Overall: eyelids normal 03/28/2016 None Full Exam - General 1994 Eyes pupils and irises Overall: pupils equal, round, reactive to light and accomodation 03/28/2016 None Full Exam - General 1994 Ears/Nose/Throat otoscopic exam Overall: external auditory canals clear 03/28/2016 None Full Exam - General 1994 Ears/Nose/Throat otoscopic exam Overall: tympanic membranes clear 03/28/2016 None Full Exam - General 1994 Ears/Nose/Throat lips/teeth/gingiva Overall: benign lips 03/28/2016 None Full Exam - General 1994 Ears/Nose/Throat lips/teeth/gingiva Overall: normal dentition 03/28/2016 None Full Exam - General 1994 Ears/Nose/Throat oral cavity/pharynx/larynx Overall: oral mucosa clear 03/28/2016 None Full Exam - General 1994 Ears/Nose/Throat oral cavity/pharynx/larynx Overall: oropharyngeal mucosa clear 03/28/2016 None Full Exam - General 1994 Ears/Nose/Throat oral cavity/pharynx/larynx Overall: hypopharynx benign 03/28/2016 None Full Exam - General 1994 Ears/Nose/Throat oral cavity/pharynx/larynx Overall: no masses 03/28/2016 None Full Exam - General 1994 Respiratory auscultation Overall: breath sounds clear bilaterally 03/28/2016 None Full Exam - General 1994 Respiratory respiratory effort/rhythm Overall: no retractions 03/28/2016 None Full Exam - General 1994 Respiratory respiratory effort/rhythm Overall: normal rate 03/28/2016 None Full Exam - General 1994 Cardiovascular extremities Overall: no clubbing 03/28/2016 None Full Exam - General 1994 Cardiovascular auscultation of heart Overall: regular rate 03/28/2016 None Full Exam - General 1994 Cardiovascular auscultation of heart Overall: normal heart sounds 03/28/2016 None Full Exam - General 1994 Musculoskeletal head and neck Overall: head atraumatic 03/28/2016 None Full Exam - General 1994 Musculoskeletal head and neck Overall: cervical spine benign 03/28/2016 None Full Exam - General 1994 Neurologic deep tendon reflexes Overall: deep tendon reflexes intact 03/28/2016 None Full Exam - General 1994 Neurologic cranial nerves Overall: crainial nerves 2 - 12 grossly intact 03/28/2016 None Full Exam - General 1994 Psychiatric orientation/consciousness Overall: oriented to person, place and time 03/28/2016 None Full Exam - General 1994 Psychiatric mood and affect Overall: normal mood and affect 03/28/2016 None Full Exam - General 1994 Constitutional general appearance Development: well developed 01/22/2016 None Full Exam - General 1994 Constitutional general appearance Development: appears stated age 0601/22/2016 None Full Exam - General 1994 Constitutional general appearance Hygiene/Attention to Grooming: good hygiene 01/22/2016 None Full Exam - General 1994 Eyes conjunctiva/eyelids Overall: conjunctiva clear 01/22/2016 None Full Exam - General 1994 Eyes conjunctiva/eyelids Overall: cornea clear 01/22/2016 None Full Exam - General 1994 Eyes conjunctiva/eyelids Overall: eyelids normal 01/22/2016 None Full Exam - General 1994 Eyes pupils and irises Overall: pupils equal, round, reactive to light and accomodation 01/22/2016 None Full Exam - General 1994 Ears/Nose/Throat otoscopic exam Overall: external auditory canals clear 01/22/2016 None Full Exam - General 1994 Ears/Nose/Throat otoscopic exam Overall: tympanic membranes clear 01/22/2016 None Full Exam - General 1994 Ears/Nose/Throat lips/teeth/gingiva Overall: benign lips 01/22/2016 None Full Exam - General 1994 Ears/Nose/Throat lips/teeth/gingiva Overall: normal dentition 01/22/2016 None Full Exam - General 1994 Ears/Nose/Throat oral cavity/pharynx/larynx Overall: oral mucosa clear 01/22/2016 None Full Exam - General 1994 Ears/Nose/Throat oral cavity/pharynx/larynx Overall: oropharyngeal mucosa clear 01/22/2016 None Full Exam - General 1994 Ears/Nose/Throat oral cavity/pharynx/larynx Overall: hypopharynx benign 01/22/2016 None Full Exam - General 1994 Ears/Nose/Throat oral cavity/pharynx/larynx Overall: no masses 01/22/2016 None Full Exam - General 1994 Respiratory auscultation Overall: breath sounds clear bilaterally 01/22/2016 None Full Exam - General 1994 Respiratory respiratory effort/rhythm Overall: no retractions 01/22/2016 None Full Exam - General 1994 Respiratory respiratory effort/rhythm Overall: normal rate 01/22/2016 None Full Exam - General 1994 Cardiovascular extremities Overall: no clubbing 01/22/2016 None Full Exam - General 1994 Cardiovascular auscultation of heart Overall: regular rate 01/22/2016 None Full Exam - General 1994 Cardiovascular auscultation of heart Overall: normal heart sounds 01/22/2016 None Full Exam - General 1994 Musculoskeletal head and neck Overall: head atraumatic 01/22/2016 None Full Exam - General 1994 Musculoskeletal head and neck Overall: cervical spine benign 01/22/2016 None Full Exam - General 1994 Neurologic deep tendon reflexes Overall: deep tendon reflexes intact 01/22/2016 None Full Exam - General 1994 Neurologic cranial nerves Overall: crainial nerves 2 - 12 grossly intact 01/22/2016 None Full Exam - General 1994 Psychiatric orientation/consciousness Overall: oriented to person, place and time 01/22/2016 None Full Exam - General 1994 Psychiatric mood and affect Overall: normal mood and affect 01/22/2016 None Full Exam - General 1994 Constitutional general appearance Development: well developed 12/21/2015 None Full Exam - General 1994 Constitutional general appearance Development: appears stated age 0512/21/2015 None Full Exam - General 1994 Constitutional general appearance Hygiene/Attention to Grooming: good hygiene 12/21/2015 None Full Exam - General 1994 Eyes conjunctiva/eyelids Overall: conjunctiva clear 12/21/2015 None Full Exam - General 1994 Eyes conjunctiva/eyelids Overall: cornea clear 12/21/2015 None Full Exam - General 1994 Eyes conjunctiva/eyelids Overall: eyelids normal 12/21/2015 None Full Exam - General 1994 Eyes pupils and irises Overall: pupils equal, round, reactive to light and accomodation 12/21/2015 None Full Exam - General 1994 Ears/Nose/Throat otoscopic exam Overall: external auditory canals clear 12/21/2015 None Full Exam - General 1994 Ears/Nose/Throat otoscopic exam Overall: tympanic membranes clear 12/21/2015 None Full Exam - General 1994 Ears/Nose/Throat lips/teeth/gingiva Overall: benign lips 12/21/2015 None Full Exam - General 1994 Ears/Nose/Throat lips/teeth/gingiva Overall: normal dentition 12/21/2015 None Full Exam - General 1994 Ears/Nose/Throat oral cavity/pharynx/larynx Overall: oral mucosa clear 12/21/2015 None Full Exam - General 1994 Ears/Nose/Throat oral cavity/pharynx/larynx Overall: oropharyngeal mucosa clear 12/21/2015 None Full Exam - General 1994 Ears/Nose/Throat oral cavity/pharynx/larynx Overall: hypopharynx benign 12/21/2015 None Full Exam - General 1994 Ears/Nose/Throat oral cavity/pharynx/larynx Overall: no masses 12/21/2015 None Full Exam - General 1994 Respiratory auscultation Overall: breath sounds clear bilaterally 12/21/2015 None Full Exam - General 1994 Respiratory respiratory effort/rhythm Overall: no retractions 12/21/2015 None Full Exam - General 1994 Respiratory respiratory effort/rhythm Overall: normal rate 12/21/2015 None Full Exam - General 1994 Cardiovascular extremities Overall: no clubbing 12/21/2015 None Full Exam - General 1994 Cardiovascular auscultation of heart Overall: regular rate 12/21/2015 None Full Exam - General 1994 Cardiovascular auscultation of heart Overall: normal heart sounds 12/21/2015 None Full Exam - General 1994 Musculoskeletal head and neck Overall: head atraumatic 12/21/2015 None Full Exam - General 1994 Musculoskeletal head and neck Overall: cervical spine benign 12/21/2015 None Full Exam - General 1994 Integument inspection of skin Dermatitis: erythema 12/21/2015 None Full Exam - General 1994 Integument inspection of skin Dermatitis: dryness/flaking 12/21/2015 on bridge of nose on left Full Exam - General 1994 Neurologic deep tendon reflexes Overall: deep tendon reflexes intact 12/21/2015 None Full Exam - General 1994 Neurologic cranial nerves Overall: crainial nerves 2 - 12 grossly intact 12/21/2015 None Full Exam - General 1994 Psychiatric orientation/consciousness Overall: oriented to person, place and time 12/21/2015 None Full Exam - General 1994 Psychiatric mood and affect Overall: normal mood and affect 12/21/2015 None Full Exam - General 1994 Constitutional general appearance Development: well developed 11/06/2015 None Full Exam - General 1994 Constitutional general appearance Development: appears stated age 0311/06/2015 None Full Exam - General 1994 Constitutional general appearance Hygiene/Attention to Grooming: good hygiene 11/06/2015 None Full Exam - General 1994 Eyes conjunctiva/eyelids Overall: conjunctiva clear 11/06/2015 None Full Exam - General 1994 Eyes conjunctiva/eyelids Overall: cornea clear 11/06/2015 None Full Exam - General 1994 Eyes conjunctiva/eyelids Overall: eyelids normal 11/06/2015 None Full Exam - General 1994 Eyes pupils and irises Overall: pupils equal, round, reactive to light and accomodation 11/06/2015 None Full Exam - General 1994 Ears/Nose/Throat otoscopic exam Overall: external auditory canals clear 11/06/2015 None Full Exam - General 1994 Ears/Nose/Throat otoscopic exam Overall: tympanic membranes clear 11/06/2015 None Full Exam - General 1994 Ears/Nose/Throat lips/teeth/gingiva Overall: benign lips 11/06/2015 None Full Exam - General 1994 Ears/Nose/Throat lips/teeth/gingiva Overall: normal dentition 11/06/2015 None Full Exam - General 1994 Ears/Nose/Throat oral cavity/pharynx/larynx Overall: oral mucosa clear 11/06/2015 None Full Exam - General 1994 Ears/Nose/Throat oral cavity/pharynx/larynx Overall: oropharyngeal mucosa clear 11/06/2015 None Full Exam - General 1994 Ears/Nose/Throat oral cavity/pharynx/larynx Overall: hypopharynx benign 11/06/2015 None Full Exam - General 1994 Ears/Nose/Throat oral cavity/pharynx/larynx Overall: no masses 11/06/2015 None Full Exam - General 1994 Respiratory auscultation Overall: breath sounds clear bilaterally 11/06/2015 None Full Exam - General 1994 Respiratory respiratory effort/rhythm Overall: no retractions 11/06/2015 None Full Exam - General 1994 Respiratory respiratory effort/rhythm Overall: normal rate 11/06/2015 None Full Exam - General 1994 Cardiovascular extremities Overall: no clubbing 11/06/2015 None Full Exam - General 1994 Cardiovascular auscultation of heart Overall: regular rate 11/06/2015 None Full Exam - General 1994 Cardiovascular auscultation of heart Overall: normal heart sounds 11/06/2015 None Full Exam - General 1994 Musculoskeletal head and neck Overall: head atraumatic 11/06/2015 None Full Exam - General 1994 Musculoskeletal head and neck Overall: cervical spine benign 11/06/2015 None Full Exam - General 1994 Integument inspection of skin Dermatitis: erythema 11/06/2015 None Full Exam - General 1994 Integument inspection of skin Dermatitis: dryness/flaking 11/06/2015 on bridge of nose on left Full Exam - General 1994 Neurologic deep tendon reflexes Overall: deep tendon reflexes intact 11/06/2015 None Full Exam - General 1994 Neurologic cranial nerves Overall: crainial nerves 2 - 12 grossly intact 11/06/2015 None Full Exam - General 1994 Psychiatric orientation/consciousness Overall: oriented to person, place and time 11/06/2015 None Full Exam - General 1994 Psychiatric mood and affect Overall: normal mood and affect 11/06/2015 None Full Exam - General 1994 Musculoskeletal head and neck Overall: head atraumatic 10/20/2015 None Full Exam - General 1994 Musculoskeletal head and neck Overall: cervical spine benign 10/20/2015 None Full Exam - General 1994 Integument inspection of skin Overall: few scattered moles, no gross abnormalities 10/20/2015 None Full Exam - General 1994 Neurologic cranial nerves Overall: crainial nerves 2 - 12 grossly intact 10/20/2015 None Full Exam - General 1994 Psychiatric orientation/consciousness Overall: oriented to person, place and time 10/20/2015 None Full Exam - General 1994 Psychiatric mood and affect Overall: normal mood and affect 10/20/2015 None Full Exam - General 1994 Ears/Nose/Throat otoscopic exam Overall: tympanic membranes clear 10/20/2015 None Full Exam - General 1994 Ears/Nose/Throat lips/teeth/gingiva Overall: benign lips 10/20/2015 None Full Exam - General 1994 Ears/Nose/Throat lips/teeth/gingiva Overall: normal dentition 10/20/2015 None Full Exam - General 1994 Ears/Nose/Throat oral cavity/pharynx/larynx Overall: oral mucosa clear 10/20/2015 None Full Exam - General 1994 Ears/Nose/Throat oral cavity/pharynx/larynx Overall: oropharyngeal mucosa clear 10/20/2015 None Full Exam - General 1994 Ears/Nose/Throat oral cavity/pharynx/larynx Overall: hypopharynx benign 10/20/2015 None Full Exam - General 1994 Ears/Nose/Throat oral cavity/pharynx/larynx Overall: no masses 10/20/2015 None Full Exam - General 1994 Respiratory auscultation Overall: breath sounds clear bilaterally 10/20/2015 None Full Exam - General 1994 Respiratory respiratory effort/rhythm Overall: no retractions 10/20/2015 None Full Exam - General 1994 Respiratory respiratory effort/rhythm Overall: normal rate 10/20/2015 None Full Exam - General 1994 Cardiovascular extremities Overall: no clubbing 10/20/2015 None Full Exam - General 1994 Cardiovascular auscultation of heart Overall: regular rate 10/20/2015 None Full Exam - General 1994 Cardiovascular auscultation of heart Overall: normal heart sounds 10/20/2015 None Full Exam - General 1994 Abdomen abdominal exam Overall: no tenderness 10/20/2015 None Full Exam - General 1994 Abdomen abdominal exam Overall: normal bowel sounds 10/20/2015 None Full Exam - General 1994 Constitutional general appearance Development: well developed 10/20/2015 None Full Exam - General 1994 Constitutional general appearance Development: appears stated age 0310/20/2015 None Full Exam - General 1994 Constitutional general appearance Hygiene/Attention to Grooming: good hygiene 10/20/2015 None Full Exam - General 1994 Eyes conjunctiva/eyelids Overall: conjunctiva clear 10/20/2015 None Full Exam - General 1994 Eyes conjunctiva/eyelids Overall: cornea clear 10/20/2015 None Full Exam - General 1994 Eyes conjunctiva/eyelids Overall: eyelids normal 10/20/2015 None Full Exam - General 1994 Eyes pupils and irises Overall: pupils equal, round, reactive to light and accomodation 10/20/2015 None Full Exam - General 1994 Ears/Nose/Throat otoscopic exam Overall: external auditory canals clear 10/20/2015 None Full Exam - General 1994 Constitutional general appearance Development: well developed 10/09/2015 None Full Exam - General 1994 Constitutional general appearance Development: appears stated age 0210/09/2015 None Full Exam - General 1994 Constitutional general appearance Hygiene/Attention to Grooming: good hygiene 10/09/2015 None Full Exam - General 1994 Eyes conjunctiva/eyelids Overall: conjunctiva clear 10/09/2015 None Full Exam - General 1994 Eyes conjunctiva/eyelids Overall: cornea clear 10/09/2015 None Full Exam - General 1994 Eyes conjunctiva/eyelids Overall: eyelids normal 10/09/2015 None Full Exam - General 1994 Eyes pupils and irises Overall: pupils equal, round, reactive to light and accomodation 10/09/2015 None Full Exam - General 1994 Ears/Nose/Throat otoscopic exam Overall: external auditory canals clear 10/09/2015 None Full Exam - General 1994 Ears/Nose/Throat otoscopic exam Overall: tympanic membranes clear 10/09/2015 None Full Exam - General 1994 Ears/Nose/Throat lips/teeth/gingiva Overall: benign lips 10/09/2015 None Full Exam - General 1994 Ears/Nose/Throat lips/teeth/gingiva Overall: normal dentition 10/09/2015 None Full Exam - General 1994 Ears/Nose/Throat oral cavity/pharynx/larynx Overall: oral mucosa clear 10/09/2015 None Full Exam - General 1994 Ears/Nose/Throat oral cavity/pharynx/larynx Overall: oropharyngeal mucosa clear 10/09/2015 None Full Exam - General 1994 Ears/Nose/Throat oral cavity/pharynx/larynx Overall: hypopharynx benign 10/09/2015 None Full Exam - General 1994 Ears/Nose/Throat oral cavity/pharynx/larynx Overall: no masses 10/09/2015 None Full Exam - General 1994 Respiratory auscultation Overall: breath sounds clear bilaterally 10/09/2015 None Full Exam - General 1994 Respiratory respiratory effort/rhythm Overall: no retractions 10/09/2015 None Full Exam - General 1994 Respiratory respiratory effort/rhythm Overall: normal rate 10/09/2015 None Full Exam - General 1994 Cardiovascular extremities Overall: no clubbing 10/09/2015 None Full Exam - General 1994 Cardiovascular auscultation of heart Overall: regular rate 10/09/2015 None Full Exam - General 1994 Cardiovascular auscultation of heart Overall: normal heart sounds 10/09/2015 None Full Exam - General 1994 Musculoskeletal head and neck Overall: head atraumatic 10/09/2015 None Full Exam - General 1994 Musculoskeletal head and neck Overall: cervical spine benign 10/09/2015 None Full Exam - General 1994 Neurologic deep tendon reflexes Overall: deep tendon reflexes intact 10/09/2015 None Full Exam - General 1994 Neurologic cranial nerves Overall: crainial nerves 2 - 12 grossly intact 10/09/2015 None Full Exam - General 1994 Psychiatric orientation/consciousness Overall: oriented to person, place and time 10/09/2015 None Full Exam - General 1994 Psychiatric mood and affect Overall: normal mood and affect 10/09/2015 None Full Exam - General 1994 Integument inspection of skin Dermatitis: erythema 10/09/2015 None Full Exam - General 1994 Integument inspection of skin Dermatitis: dryness/flaking 10/09/2015 on bridge of nose on left Full Exam - General 1994 Constitutional general appearance Development: well developed 09/21/2015 None Full Exam - General 1994 Constitutional general appearance Development: appears stated age 0209/21/2015 None Full Exam - General 1994 Constitutional general appearance Hygiene/Attention to Grooming: good hygiene 09/21/2015 None Full Exam - General 1994 Eyes conjunctiva/eyelids Overall: conjunctiva clear 09/21/2015 None Full Exam - General 1994 Eyes conjunctiva/eyelids Overall: cornea clear 09/21/2015 None Full Exam - General 1994 Eyes conjunctiva/eyelids Overall: eyelids normal 09/21/2015 None Full Exam - General 1994 Eyes pupils and irises Overall: pupils equal, round, reactive to light and accomodation 09/21/2015 None Full Exam - General 1994 Ears/Nose/Throat otoscopic exam Overall: external auditory canals clear 09/21/2015 None Full Exam - General 1994 Ears/Nose/Throat otoscopic exam Overall: tympanic membranes clear 09/21/2015 None Full Exam - General 1994 Ears/Nose/Throat lips/teeth/gingiva Overall: benign lips 09/21/2015 None Full Exam - General 1994 Ears/Nose/Throat lips/teeth/gingiva Overall: normal dentition 09/21/2015 None Full Exam - General 1994 Ears/Nose/Throat oral cavity/pharynx/larynx Overall: oral mucosa clear 09/21/2015 None Full Exam - General 1994 Ears/Nose/Throat oral cavity/pharynx/larynx Overall: oropharyngeal mucosa clear 09/21/2015 None Full Exam - General 1994 Ears/Nose/Throat oral cavity/pharynx/larynx Overall: hypopharynx benign 09/21/2015 None Full Exam - General 1994 Ears/Nose/Throat oral cavity/pharynx/larynx Overall: no masses 09/21/2015 None Full Exam - General 1994 Respiratory auscultation Overall: breath sounds clear bilaterally 09/21/2015 None Full Exam - General 1994 Respiratory respiratory effort/rhythm Overall: no retractions 09/21/2015 None Full Exam - General 1994 Respiratory respiratory effort/rhythm Overall: normal rate 09/21/2015 None Full Exam - General 1994 Cardiovascular extremities Overall: no clubbing 09/21/2015 None Full Exam - General 1994 Cardiovascular auscultation of heart Overall: regular rate 09/21/2015 None Full Exam - General 1994 Cardiovascular auscultation of heart Overall: normal heart sounds 09/21/2015 None Full Exam - General 1994 Abdomen abdominal exam Overall: no tenderness 09/21/2015 None Full Exam - General 1994 Abdomen abdominal exam Overall: normal bowel sounds 09/21/2015 None Full Exam - General 1994 Lymphatic neck nodes Overall: anterior cervical chain benign 09/21/2015 None Full Exam - General 1994 Lymphatic neck nodes Overall: posterior cervical chain benign 09/21/2015 None Full Exam - General 1994 Musculoskeletal head and neck Overall: head atraumatic 09/21/2015 None Full Exam - General 1994 Musculoskeletal head and neck Overall: cervical spine benign 09/21/2015 None Full Exam - General 1994 Integument inspection of skin Overall: few scattered moles, no gross abnormalities 09/21/2015 None Full Exam - General 1994 Neurologic deep tendon reflexes Overall: deep tendon reflexes intact 09/21/2015 None Full Exam - General 1994 Neurologic cranial nerves Overall: crainial nerves 2 - 12 grossly intact 09/21/2015 None Full Exam - General 1994 Psychiatric orientation/consciousness Overall: oriented to person, place and time 09/21/2015 None Full Exam - General 1994 Psychiatric mood and affect Overall: normal mood and affect 09/21/2015 None Full Exam - General 1994 Constitutional general appearance Development: well developed 08/22/2015 None Full Exam - General 1994 Constitutional general appearance Development: appears stated age 0108/22/2015 None Full Exam - General 1994 Constitutional general appearance Hygiene/Attention to Grooming: good hygiene 08/22/2015 None Full Exam - General 1994 Eyes conjunctiva/eyelids Overall: conjunctiva clear 08/22/2015 None Full Exam - General 1994 Eyes conjunctiva/eyelids Overall: cornea clear 08/22/2015 None Full Exam - General 1994 Eyes conjunctiva/eyelids Overall: eyelids normal 08/22/2015 None Full Exam - General 1994 Eyes pupils and irises Overall: pupils equal, round, reactive to light and accomodation 08/22/2015 None Full Exam - General 1994 Ears/Nose/Throat otoscopic exam Overall: external auditory canals clear 08/22/2015 None Full Exam - General 1994 Ears/Nose/Throat otoscopic exam Overall: tympanic membranes clear 08/22/2015 None Full Exam - General 1994 Ears/Nose/Throat lips/teeth/gingiva Overall: benign lips 08/22/2015 None Full Exam - General 1994 Ears/Nose/Throat lips/teeth/gingiva Overall: normal dentition 08/22/2015 None Full Exam - General 1994 Ears/Nose/Throat oral cavity/pharynx/larynx Overall: oral mucosa clear 08/22/2015 None Full Exam - General 1994 Ears/Nose/Throat oral cavity/pharynx/larynx Overall: oropharyngeal mucosa clear 08/22/2015 None Full Exam - General 1994 Ears/Nose/Throat oral cavity/pharynx/larynx Overall: hypopharynx benign 08/22/2015 None Full Exam - General 1994 Ears/Nose/Throat oral cavity/pharynx/larynx Overall: no masses 08/22/2015 None Full Exam - General 1994 Respiratory auscultation Overall: breath sounds clear bilaterally 08/22/2015 None Full Exam - General 1994 Respiratory respiratory effort/rhythm Overall: no retractions 08/22/2015 None Full Exam - General 1994 Respiratory respiratory effort/rhythm Overall: normal rate 08/22/2015 None Full Exam - General 1994 Cardiovascular extremities Overall: no clubbing 08/22/2015 None Full Exam - General 1994 Cardiovascular auscultation of heart Overall: regular rate 08/22/2015 None Full Exam - General 1994 Cardiovascular auscultation of heart Overall: normal heart sounds 08/22/2015 None Full Exam - General 1994 Abdomen abdominal exam Overall: no tenderness 08/22/2015 None Full Exam - General 1994 Abdomen abdominal exam Overall: normal bowel sounds 08/22/2015 None Full Exam - General 1994 Lymphatic neck nodes Overall: anterior cervical chain benign 08/22/2015 None Full Exam - General 1994 Lymphatic neck nodes Overall: posterior cervical chain benign 08/22/2015 None Full Exam - General 1994 Musculoskeletal head and neck Overall: head atraumatic 08/22/2015 None Full Exam - General 1994 Musculoskeletal head and neck Overall: cervical spine benign 08/22/2015 None Full Exam - General 1994 Integument inspection of skin Overall: few scattered moles, no gross abnormalities 08/22/2015 None Full Exam - General 1994 Neurologic deep tendon reflexes Overall: deep tendon reflexes intact 08/22/2015 None Full Exam - General 1994 Neurologic cranial nerves Overall: crainial nerves 2 - 12 grossly intact 08/22/2015 None Full Exam - General 1994 Psychiatric orientation/consciousness Overall: oriented to person, place and time 08/22/2015 None Full Exam - General 1994 Psychiatric mood and affect Overall: normal mood and affect 08/22/2015 None Full Exam - General 1994 Constitutional general appearance Development: well developed 04/07/2015 None Full Exam - General 1994 Constitutional general appearance Development: appears stated age 0804/07/2015 None Full Exam - General 1994 Constitutional general appearance Hygiene/Attention to Grooming: good hygiene 04/07/2015 None Full Exam - General 1994 Eyes conjunctiva/eyelids Overall: conjunctiva clear 04/07/2015 None Full Exam - General 1994 Eyes conjunctiva/eyelids Overall: cornea clear 04/07/2015 None Full Exam - General 1994 Eyes conjunctiva/eyelids Overall: eyelids normal 04/07/2015 None Full Exam - General 1994 Eyes pupils and irises Overall: pupils equal, round, reactive to light and accomodation 04/07/2015 None Full Exam - General 1994 Ears/Nose/Throat otoscopic exam Overall: external auditory canals clear 04/07/2015 None Full Exam - General 1994 Ears/Nose/Throat otoscopic exam Overall: tympanic membranes clear 04/07/2015 None Full Exam - General 1994 Ears/Nose/Throat lips/teeth/gingiva Overall: benign lips 04/07/2015 None Full Exam - General 1994 Ears/Nose/Throat lips/teeth/gingiva Overall: normal dentition 04/07/2015 None Full Exam - General 1994 Ears/Nose/Throat oral cavity/pharynx/larynx Overall: oral mucosa clear 04/07/2015 None Full Exam - General 1994 Ears/Nose/Throat oral cavity/pharynx/larynx Overall: oropharyngeal mucosa clear 04/07/2015 None Full Exam - General 1994 Ears/Nose/Throat oral cavity/pharynx/larynx Overall: hypopharynx benign 04/07/2015 None Full Exam - General 1994 Ears/Nose/Throat oral cavity/pharynx/larynx Overall: no masses 04/07/2015 None Full Exam - General 1994 Respiratory auscultation Overall: breath sounds clear bilaterally 04/07/2015 None Full Exam - General 1994 Respiratory respiratory effort/rhythm Overall: no retractions 04/07/2015 None Full Exam - General 1994 Respiratory respiratory effort/rhythm Overall: normal rate 04/07/2015 None Full Exam - General 1994 Cardiovascular extremities Overall: no clubbing 04/07/2015 None Full Exam - General 1994 Cardiovascular auscultation of heart Overall: regular rate 04/07/2015 None Full Exam - General 1994 Cardiovascular auscultation of heart Overall: normal heart sounds 04/07/2015 None Full Exam - General 1994 Abdomen abdominal exam Overall: no tenderness 04/07/2015 None Full Exam - General 1994 Abdomen abdominal exam Overall: normal bowel sounds 04/07/2015 None Full Exam - General 1994 Lymphatic neck nodes Overall: anterior cervical chain benign 04/07/2015 None Full Exam - General 1994 Lymphatic neck nodes Overall: posterior cervical chain benign 04/07/2015 None Full Exam - General 1994 Musculoskeletal head and neck Overall: head atraumatic 04/07/2015 None Full Exam - General 1994 Musculoskeletal head and neck Overall: cervical spine benign 04/07/2015 None Full Exam - General 1994 Integument inspection of skin Overall: few scattered moles, no gross abnormalities 04/07/2015 None Full Exam - General 1994 Neurologic deep tendon reflexes Overall: deep tendon reflexes intact 04/07/2015 None Full Exam - General 1994 Neurologic cranial nerves Overall: crainial nerves 2 - 12 grossly intact 04/07/2015 None Full Exam - General 1994 Psychiatric orientation/consciousness Overall: oriented to person, place and time 04/07/2015 None Full Exam - General 1994 Psychiatric mood and affect Overall: normal mood and affect 04/07/2015 None Full Exam - General 1994 Constitutional general appearance Development: appears stated age 0501/02/2015 None Full Exam - General 1994 Constitutional general appearance Development: well developed 01/02/2015 None Full Exam - General 1994 Constitutional general appearance Hygiene/Attention to Grooming: good hygiene 01/02/2015 None Full Exam - General 1994 Eyes conjunctiva/eyelids Overall: conjunctiva clear 01/02/2015 None Full Exam - General 1994 Eyes conjunctiva/eyelids Overall: cornea clear 01/02/2015 None Full Exam - General 1994 Eyes conjunctiva/eyelids Overall: eyelids normal 01/02/2015 None Full Exam - General 1994 Eyes pupils and irises Overall: pupils equal, round, reactive to light and accomodation 01/02/2015 None Full Exam - General 1994 Ears/Nose/Throat otoscopic exam Overall: external auditory canals clear 01/02/2015 None Full Exam - General 1994 Ears/Nose/Throat otoscopic exam Overall: tympanic membranes clear 01/02/2015 None Full Exam - General 1994 Ears/Nose/Throat lips/teeth/gingiva Overall: benign lips 01/02/2015 None Full Exam - General 1994 Ears/Nose/Throat lips/teeth/gingiva Overall: normal dentition 01/02/2015 None Full Exam - General 1994 Ears/Nose/Throat oral cavity/pharynx/larynx Overall: hypopharynx benign 01/02/2015 None Full Exam - General 1994 Ears/Nose/Throat oral cavity/pharynx/larynx Overall: no masses 01/02/2015 None Full Exam - General 1994 Ears/Nose/Throat oral cavity/pharynx/larynx Overall: oral mucosa clear 01/02/2015 None Full Exam - General 1994 Ears/Nose/Throat oral cavity/pharynx/larynx Overall: oropharyngeal mucosa clear 01/02/2015 None Full Exam - General 1994 Respiratory auscultation Overall: breath sounds clear bilaterally 01/02/2015 None Full Exam - General 1994 Respiratory respiratory effort/rhythm Overall: no retractions 01/02/2015 None Full Exam - General 1994 Respiratory respiratory effort/rhythm Overall: normal rate 01/02/2015 None Full Exam - General 1994 Cardiovascular extremities Overall: no clubbing 01/02/2015 None Full Exam - General 1994 Cardiovascular auscultation of heart Overall: normal heart sounds 01/02/2015 None Full Exam - General 1994 Cardiovascular auscultation of heart Overall: regular rate 01/02/2015 None Full Exam - General 1994 Abdomen abdominal exam Overall: no tenderness 01/02/2015 None Full Exam - General 1994 Abdomen abdominal exam Overall: normal bowel sounds 01/02/2015 None Full Exam - General 1994 Integument inspection of skin Overall: few scattered moles, no gross abnormalities 01/02/2015 None Full Exam - General 1994 Neurologic deep tendon reflexes Overall: deep tendon reflexes intact 01/02/2015 None Full Exam - General 1994 Neurologic cranial nerves Overall: crainial nerves 2 - 12 grossly intact 01/02/2015 None Full Exam - General 1994 Psychiatric orientation/consciousness Overall: oriented to person, place and time 01/02/2015 None Full Exam - General 1994 Psychiatric mood and affect Overall: normal mood and affect 01/02/2015 None Full Exam - General 1994 Lymphatic neck nodes Overall: anterior cervical chain benign 01/02/2015 None Full Exam - General 1994 Lymphatic neck nodes Overall: posterior cervical chain benign 01/02/2015 None Full Exam - General 1994 Musculoskeletal head and neck Overall: cervical spine benign 01/02/2015 None Full Exam - General 1994 Musculoskeletal head and neck Overall: head atraumatic 01/02/2015 None Procedures Procedure Codes Date DESTRUCT PREMALG LESION CPT-4: 31317 10/07/2016 Vital Signs Date Vital 01/25/2019 Blood Pressure 1: 140/80 Code: 8480-6 BMI: 27.1 Code: 81673-2 Heart Rate 1: 70 bpm Height: 5'3" SpO2: 93% Weight: 153 lbs 12/25/2018 Blood Pressure 1: 128/60 Code: 8480-6 BMI: 28.7 Code: 36867-1 Heart Rate 1: 68 bpm Height: 5'3" SpO2: 97% Weight: 162 lbs 10/27/2018 Blood Pressure 1: 128/68 Code: 8480-6 BMI: 27.6 Code: 22150-4 Heart Rate 1: 70 bpm Height: 5'3" SpO2: 94% Weight: 156 lbs 08/26/2018 Blood Pressure 1: 146/52 Code: 8480-6 BMI: 28.0 Code: 31456-4 Heart Rate 1: 68 bpm Height: 5'3" SpO2: 98% Weight: 158 lbs 07/20/2018 Blood Pressure 1: 144/70 Code: 8480-6 BMI: 28.3 Code: 27549-2 Heart Rate 1: 82 bpm Height: 5'3" SpO2: 100% Weight: 160 lbs 03/05/2018 Blood Pressure 1: 144/66 Code: 8480-6 BMI: 28.7 Code: 74699-1 Heart Rate 1: 83 bpm Height: 5'3" SpO2: 99% Weight: 162 lbs 10/30/2017 Blood Pressure 1: 122/58 Code: 8480-6 BMI: 30.1 Code: 35397-0 Heart Rate 1: 78 bpm Height: 5'3" SpO2: 98% Weight: 170 lbs 07/03/2017 Blood Pressure 1: 148/78 Code: 8480-6 BMI: 29.8 Code: 55632-0 Heart Rate 1: 80 bpm Height: 5'3" SpO2: 99% Weight: 168 lbs 04/03/2017 Blood Pressure 1: 144/64 Code: 8480-6 BMI: 29.1 Code: 09409-5 Heart Rate 1: 78 bpm Height: 5'3" SpO2: 98% Weight: 164 lbs 12/31/2016 Blood Pressure 1: 138/70 Code: 8480-6 BMI: 30.3 Code: 04909-7 Heart Rate 1: 84 bpm Height: 5'3" SpO2: 90% Weight: 171 lbs 10/07/2016 Blood Pressure 1: 146/78 Code: 8480-6 BMI: 29.4 Code: 51605-6 Heart Rate 1: 73 bpm Height: 5'3" SpO2: 99% Weight: 166 lbs 09/19/2016 Blood Pressure 1: 168/76 Code: 8480-6 BMI: 29.2 Code: 25528-9 Heart Rate 1: 88 bpm Height: 5'3" SpO2: 98% Weight: 165 lbs 07/08/2016 Blood Pressure 1: 120/80 Code: 8480-6 BMI: 28.3 Code: 40916-7 Heart Rate 1: 80 bpm Height: 5'3" SpO2: 99% Weight: 160 lbs 05/08/2016 Blood Pressure 1: 138/70 Code: 8480-6 BMI: 26.9 Code: 18827-0 Heart Rate 1: 93 bpm Height: 5'3" SpO2: 98% Weight: 152 lbs 03/28/2016 Blood Pressure 1: 144/74 Code: 8480-6 BMI: 27.6 Code: 73095-0 Heart Rate 1: 85 bpm Height: 5'3" SpO2: 99% Weight: 156 lbs 01/22/2016 Blood Pressure 1: 140/82 Code: 8480-6 BMI: 28.9 Code: 78421-1 Heart Rate 1: 104 bpm Height: 5'3" SpO2: 94% Weight: 163 lbs 12/21/2015 Blood Pressure 1: 140/90 Code: 8480-6 BMI: 28.7 Code: 70385-0 Heart Rate 1: 99 bpm Height: 5'3" SpO2: 96% Weight: 162 lbs 11/06/2015 Blood Pressure 1: 110/60 Code: 8480-6 BMI: 29.8 Code: 44039-7 Heart Rate 1: 93 bpm Height: 5'3" SpO2: 98% Weight: 168 lbs 10/20/2015 Blood Pressure 1: 152/62 Code: 8480-6 BMI: 29.8 Code: 02411-5 Heart Rate 1: 86 bpm Height: 5'3" SpO2: 96% Weight: 168 lbs 10/09/2015 Blood Pressure 1: 152/60 Code: 8480-6 BMI: 30.2 Code: 88761-2 Heart Rate 1: 83 bpm Height: 5'3" SpO2: 98% Weight: 170 lbs 8 oz 09/21/2015 Blood Pressure 1: 160/74 Code: 8480-6 Blood Pressure 1: 168/72 Code: 8480-6 BMI: 29.8 Code: 67916-4 Heart Rate 1: 82 bpm Height: 5'3" SpO2: 99% Weight: 168 lbs 08/22/2015 Blood Pressure 1: 170/82 Code: 8480-6 Blood Pressure 1: 178/78 Code: 8480-6 BMI: 29.2 Code: 68994-0 Heart Rate 1: 85 bpm Height: 5'3" SpO2: 99% Weight: 165 lbs 04/07/2015 Blood Pressure 1: 140/68 Code: 8480-6 BMI: 29.9 Code: 93878-6 Heart Rate 1: 81 bpm Height: 5'3" SpO2: 99% Weight: 169 lbs 01/02/2015 Blood Pressure 1: 162/72 Code: 8480-6 BMI: 30.3 Code: 71859-9 Heart Rate 1: 88 bpm Height: 5'3" SpO2: 98% Weight: 171 lbs Functional Status No Functional Status data History of Present Illness Symptom Name Status Result Effective Date Notes Location diffusely 01/25/2019 None Quality intermittent 01/25/2019 None Onset and Resolution ongoing 01/25/2019 None Pertinent Findings Denies awakens from sleep 01/25/2019 None Pertinent Findings Denies dizziness 01/25/2019 None Limitation on Activities does not limit activities 01/25/2019 None Frequency of Episodes decreasing 01/25/2019 None _ pain 12/25/2018 None Quality acute 12/25/2018 None Onset of Symptom 1 weeks ago 12/25/2018 None Pertinent Findings pain 12/25/2018 None Onset and Resolution sudden in onset 12/25/2018 None Significant Medical Conditions acute illness 12/25/2018 None Significant Medical Conditions trauma 12/25/2018 fall and hit head Alleviating Factors rest 12/25/2018 None Pertinent Findings Denies fever 12/25/2018 None Location-Major on the feet 10/27/2018 None Pertinent Findings pain 10/27/2018 None Onset of Symptom 3 weeks ago 10/27/2018 None Color black 10/27/2018 None Onset and Resolution gradual in onset 10/27/2018 None Quality obsessive-compulsive 08/26/2018 None Onset and Resolution gradual in onset 08/26/2018 None Location in the frontal area 07/20/2018 None Quality intermittent 07/20/2018 None Onset and Resolution gradual in onset 07/20/2018 None Limitation on Activities does not limit activities 07/20/2018 None Pertinent Findings Denies awakens from sleep 07/20/2018 None Pertinent Findings Denies blurred vision 07/20/2018 None Pertinent Findings Denies facial pain 07/20/2018 None diabetes mellitus Quality insulin dependent 03/05/2018 None diabetes mellitus Severity moderate 03/05/2018 None diabetes mellitus Significant Medications insulin 03/05/2018 None diabetes mellitus Alleviating Factors medication 03/05/2018 None diabetes mellitus Exacerbating Factors diet 03/05/2018 None diabetes mellitus Nutrition ADA diet 03/05/2018 None diabetes mellitus Pertinent Findings dizziness 03/05/2018 occasionally diabetes mellitus Pertinent Findings Denies dyspnea 03/05/2018 None diabetes mellitus Pertinent Findings Denies nausea 03/05/2018 None diabetes mellitus Onset of Symptom onset as an adult 03/05/2018 None hypertension Quality primary hypertension 03/05/2018 None hypertension Onset and Resolution ongoing 03/05/2018 None hypertension Onset of Symptom during adulthood 03/05/2018 None hypertension Blood Pressure Values patient checking blood pressure at home - did not bring in readings 03/05/2018 -Checked occasionally hypertension Alleviating Factors medication 03/05/2018 None hypertension Pertinent Findings Denies edema 03/05/2018 None diabetes mellitus Quality chronic 03/05/2018 None hypertension Quality chronic 03/05/2018 None diabetes mellitus Test results Pt checking blood glucose readings, did not bring results to clinic 03/05/2018 None diabetes mellitus Glucose monitoring before meals 03/05/2018 None diabetes mellitus Glucose monitoring bedtime 03/05/2018 None diabetes mellitus Quality insulin dependent 10/30/2017 None diabetes mellitus Severity moderate 10/30/2017 None diabetes mellitus Significant Medications insulin 10/30/2017 None diabetes mellitus Alleviating Factors medication 10/30/2017 None diabetes mellitus Exacerbating Factors diet 10/30/2017 None diabetes mellitus Nutrition ADA diet 10/30/2017 None diabetes mellitus Pertinent Findings dizziness 10/30/2017 occasionally diabetes mellitus Pertinent Findings Denies dyspnea 10/30/2017 None diabetes mellitus Pertinent Findings Denies nausea 10/30/2017 None diabetes mellitus Onset of Symptom onset as an adult 10/30/2017 None hypertension Quality primary hypertension 10/30/2017 None hypertension Onset and Resolution ongoing 10/30/2017 None hypertension Onset of Symptom during adulthood 10/30/2017 None hypertension Blood Pressure Values patient checking blood pressure at home - did not bring in readings 10/30/2017 -Checked occasionally hypertension Alleviating Factors medication 10/30/2017 None hypertension Pertinent Findings Denies edema 10/30/2017 --Wears compression stockings as needed diabetes mellitus Quality insulin dependent 07/03/2017 None diabetes mellitus Severity moderate 07/03/2017 None diabetes mellitus Significant Medications insulin 07/03/2017 None diabetes mellitus Alleviating Factors medication 07/03/2017 None diabetes mellitus Nutrition ADA diet 07/03/2017 None diabetes mellitus Pertinent Findings dizziness 07/03/2017 occasionally diabetes mellitus Pertinent Findings Denies nausea 07/03/2017 None diabetes mellitus Onset of Symptom onset as an adult 07/03/2017 None hypertension Quality primary hypertension 07/03/2017 None hypertension Onset and Resolution ongoing 07/03/2017 None hypertension Onset of Symptom during adulthood 07/03/2017 None hypertension Alleviating Factors medication 07/03/2017 None diabetes mellitus Test results Pt checking blood glucose at home, see scanned readings 07/03/2017 None diabetes mellitus Glucose monitoring daily 07/03/2017 (four times daily) diabetes mellitus Exacerbating Factors diet 07/03/2017 None diabetes mellitus Pertinent Findings Denies dyspnea 07/03/2017 None hypertension Blood Pressure Values patient checking blood pressure at home - did not bring in readings 07/03/2017 -Checked occasionally hypertension Pertinent Findings Denies edema 07/03/2017 --Wears compression stockings as needed diabetes mellitus Quality insulin dependent 04/03/2017 None diabetes mellitus Quality IDDM 04/03/2017 None diabetes mellitus Severity moderate 04/03/2017 None diabetes mellitus Significant Medications insulin 04/03/2017 None diabetes mellitus Alleviating Factors medication 04/03/2017 None diabetes mellitus Nutrition ADA diet 04/03/2017 None diabetes mellitus Pertinent Findings Denies dizziness 04/03/2017 None diabetes mellitus Pertinent Findings Denies nausea 04/03/2017 None diabetes mellitus Pertinent Findings Denies vomiting 04/03/2017 None diabetes mellitus Onset of Symptom onset as an adult 04/03/2017 None diabetes mellitus Quality insulin dependent 12/31/2016 None diabetes mellitus Quality IDDM 12/31/2016 None diabetes mellitus Severity moderate 12/31/2016 None diabetes mellitus Significant Medications insulin 12/31/2016 None diabetes mellitus Alleviating Factors medication 12/31/2016 None diabetes mellitus Pertinent Findings Denies dizziness 12/31/2016 None diabetes mellitus Pertinent Findings Denies vomiting 12/31/2016 None diabetes mellitus Onset of Symptom onset as an adult 12/31/2016 None diabetes mellitus Pertinent Findings Denies nausea 12/31/2016 None diabetes mellitus Test results Pt checking blood glucose readings, did not bring results to clinic 12/31/2016 None diabetes mellitus Blood glucose levels greater than 120 12/31/2016 None diabetes mellitus Blood glucose levels between 60 and 120 12/31/2016 None diabetes mellitus Glucose monitoring 2 hours postprandial 12/31/2016 None diabetes mellitus Nutrition ADA diet 12/31/2016 None diabetes mellitus Exercise no exercise 12/31/2016 None color change Quality dry 10/07/2016 None color change Onset and Resolution ongoing 10/07/2016 None color change Onset of Symptom 6 months ago 10/07/2016 None color change Triggers no known triggers 10/07/2016 None color change Pertinent Findings Denies itching 10/07/2016 None color change Pertinent Findings Denies pain 10/07/2016 None diabetes mellitus Quality insulin dependent 10/07/2016 None diabetes mellitus Quality IDDM 10/07/2016 None diabetes mellitus Severity moderate 10/07/2016 None diabetes mellitus Significant Medications insulin 10/07/2016 None diabetes mellitus Alleviating Factors medication 10/07/2016 None diabetes mellitus Pertinent Findings Denies vomiting 10/07/2016 None diabetes mellitus Onset of Symptom onset as an adult 10/07/2016 None diabetes mellitus Test results Pt checking blood glucose at home, see scanned readings 10/07/[address] [facility] diabetes mellitus Pertinent Findings Denies dizziness 10/07/2016 None color change Onset of Symptom 1 year ago 10/07/2016 None color change Alleviating Factors no alleviating factors 10/07/2016 None color change Pertinent Findings Denies tenderness 10/07/2016 None diabetes mellitus Quality insulin dependent 09/19/2016 None diabetes mellitus Quality IDDM 09/19/2016 None diabetes mellitus Severity moderate 09/19/2016 None diabetes mellitus Significant Medications insulin 09/19/2016 None diabetes mellitus Alleviating Factors medication 09/19/2016 None diabetes mellitus Onset of Symptom onset as an adult 09/19/2016 None diabetes mellitus Test results Pt checking blood glucose readings, did not bring results to clinic 09/19/2016 None diabetes mellitus Blood glucose levels less than 60 09/19/2016 None diabetes mellitus Glucose monitoring before meals 09/19/2016 None diabetes mellitus Glucose monitoring bedtime 09/19/2016 None diabetes mellitus Pertinent Findings behavioral changes 09/19/2016 None diabetes mellitus Pertinent Findings dizziness 09/19/2016 None diabetes mellitus Pertinent Findings lethargy 09/19/2016 None diabetes mellitus Pertinent Findings mental status change 09/19/2016 None diabetes mellitus Nutrition ADA diet 09/19/2016 daughter states she is a picky eater diabetes mellitus Onset of Symptom onset as an adult 07/08/2016 None diabetes mellitus Quality insulin dependent 07/08/2016 None diabetes mellitus Quality IDDM 07/08/2016 None diabetes mellitus Severity moderate 07/08/2016 None diabetes mellitus Test results Pt checking blood glucose at home, see scanned readings 07/08/2016 None diabetes mellitus Blood glucose levels greater than 120 07/08/2016 None diabetes mellitus Glucose monitoring twice daily 07/08/2016 None diabetes mellitus Significant Medications insulin 07/08/2016 None diabetes mellitus Alleviating Factors medication 07/08/2016 None diabetes mellitus Exercise no exercise 07/08/2016 None diabetes mellitus Pertinent Findings Denies vomiting 07/08/2016 None wound follow up General Recovery more slowly than anticipated 05/08/2016 None diabetes mellitus Quality insulin dependent 05/08/2016 None diabetes mellitus Quality IDDM 05/08/2016 None diabetes mellitus Severity moderate 05/08/2016 None diabetes mellitus Onset of Symptom onset as an adult 05/08/2016 None diabetes mellitus Quality insulin dependent 03/28/2016 None diabetes mellitus Quality IDDM 03/28/2016 None diabetes mellitus Severity moderate 03/28/2016 None diabetes mellitus Alleviating Factors insulin 03/28/2016 Novolog and Lantus diabetes mellitus Exacerbating Factors diet 03/28/2016 None diabetes mellitus Pertinent Findings dizziness 03/28/2016 (lightheaded occasionally) diabetes mellitus Pertinent Findings Denies dyspnea 03/28/2016 None diabetes mellitus Pertinent Findings Denies lethargy 03/28/2016 None diabetes mellitus Pertinent Findings Denies nausea 03/28/2016 None diabetes mellitus Pertinent Findings Denies numbness 03/28/2016 None diabetes mellitus Pertinent Findings Denies polyuria 03/28/2016 None diabetes mellitus Onset of Symptom onset as an adult 03/28/2016 None hypertension Onset and Resolution ongoing 03/28/2016 None hypertension Blood Pressure Values patient checking blood pressure at home - did not bring in readings 03/28/2016 (occasional) hypertension Severity not consistently severe symptoms, the symptoms fluctuate from no symptoms to anxiety and headaches 03/28/2016 None hypertension Frequency of Episodes unchanged 03/28/2016 None hypertension Triggers no known associated factors 03/28/2016 None hypertension Alleviating Factors medication 03/28/2016 None hypertension Exacerbating Factors stress 03/28/2016 None hypertension Pertinent Findings Denies dyspnea 03/28/2016 None hypertension Pertinent Findings Denies edema 03/28/2016 None diabetes mellitus Test results Pt checking blood glucose readings, did not bring results to clinic 03/28/2016 None diabetes mellitus Glucose monitoring daily 03/28/2016 (at least once at various times) hypothyroid Onset and Resolution ongoing 03/28/2016 None hypothyroid Alleviating Factors medication 03/28/2016 None diabetes mellitus Onset of Symptom onset as an adult 01/22/2016 None diabetes mellitus Quality insulin dependent 01/22/2016 None diabetes mellitus Severity moderate 01/22/2016 None diabetes mellitus Alleviating Factors insulin 01/22/2016 Novolog and Lantus diabetes mellitus Exacerbating Factors diet 01/22/2016 None diabetes mellitus Pertinent Findings Denies dizziness 01/22/2016 None diabetes mellitus Pertinent Findings Denies dyspnea 01/22/2016 None diabetes mellitus Pertinent Findings Denies lethargy 01/22/2016 None diabetes mellitus Pertinent Findings Denies nausea 01/22/2016 None diabetes mellitus Pertinent Findings Denies polyuria 01/22/2016 None hypertension Onset and Resolution ongoing 01/22/2016 None hypertension Blood Pressure Values patient checking blood pressure at home - did not bring in readings 01/22/2016 None hypertension Alleviating Factors medication 01/22/2016 None hypertension Exacerbating Factors stress 01/22/2016 None hypertension Pertinent Findings Denies dyspnea 01/22/2016 None hypertension Pertinent Findings Denies edema 01/22/2016 None diabetes mellitus Quality IDDM 01/22/2016 None diabetes mellitus Test results Pt checking blood glucose readings, did not bring results to clinic 01/22/2016 None diabetes mellitus Blood glucose levels between 60 and 120 01/22/2016 None diabetes mellitus Blood glucose levels greater than 120 01/22/2016 None diabetes mellitus Pertinent Findings Denies numbness 01/22/2016 None hypertension Severity not consistently severe symptoms, the symptoms fluctuate from no symptoms to anxiety and headaches 01/22/2016 None hypertension Frequency of Episodes unchanged 01/22/2016 None hypertension Triggers no known associated factors 01/22/2016 None diabetes mellitus Test results HgbA1c level 11.9 01/22/2016 None diabetes mellitus Glucose monitoring twice daily 01/22/2016 morning and night but states "I don't always do it at night" diabetes mellitus Onset of Symptom onset as an adult 12/21/2015 None diabetes mellitus Quality insulin dependent 12/21/2015 None diabetes mellitus Severity moderate 12/21/2015 None diabetes mellitus Alleviating Factors insulin 12/21/2015 Novolog and Lantus diabetes mellitus Exacerbating Factors diet 12/21/2015 None diabetes mellitus Pertinent Findings dizziness 12/21/2015 occ- but better than it has been. diabetes mellitus Pertinent Findings Denies dyspnea 12/21/2015 None diabetes mellitus Pertinent Findings Denies lethargy 12/21/2015 None diabetes mellitus Pertinent Findings Denies nausea 12/21/2015 None diabetes mellitus Pertinent Findings Denies polyuria 12/21/2015 None hypertension Onset and Resolution ongoing 12/21/2015 None hypertension Blood Pressure Values patient checking blood pressure at home - did not bring in readings 12/21/2015 None hypertension Alleviating Factors medication 12/21/2015 None hypertension Exacerbating Factors stress 12/21/2015 None hypertension Pertinent Findings Denies dyspnea 12/21/2015 None hypertension Pertinent Findings Denies edema 12/21/2015 None diabetes mellitus Onset of Symptom onset as an adult 11/06/2015 None diabetes mellitus Quality insulin dependent 11/06/2015 None diabetes mellitus Severity moderate 11/06/2015 None diabetes mellitus Alleviating Factors insulin 11/06/2015 Novolog and Lantus diabetes mellitus Exacerbating Factors diet 11/06/2015 None diabetes mellitus Pertinent Findings dizziness 11/06/2015 if she stands too quickly diabetes mellitus Pertinent Findings Denies dyspnea 11/06/2015 None diabetes mellitus Pertinent Findings Denies lethargy 11/06/2015 None diabetes mellitus Pertinent Findings Denies nausea 11/06/2015 None diabetes mellitus Pertinent Findings Denies polyuria 11/06/2015 None hypertension Onset and Resolution ongoing 11/06/2015 None hypertension Blood Pressure Values patient checking blood pressure at home - did not bring in readings 11/06/2015 None hypertension Alleviating Factors medication 11/06/2015 None hypertension Exacerbating Factors stress 11/06/2015 None hypertension Pertinent Findings Denies dyspnea 11/06/2015 None hypertension Pertinent Findings Denies edema 11/06/2015 None diabetes mellitus Glucose monitoring daily 11/06/2015 -at least- diabetes mellitus Test results Pt checking blood glucose readings, did not bring results to clinic 11/06/2015 None Hospital Follow Up _ Other: blood sugar and bladder infection 10/20/2015 None Hospital Follow Up Quality acute illness 10/20/2015 None Hospital Follow Up Severity mild 10/20/2015 None Hospital Follow Up Significant Medical Conditions acute illness 10/20/2015 None Hospital Follow Up Mechanism of injury unknown 10/20/2015 None Hospital Follow Up Alleviating Factors medication 10/20/2015 None Hospital Follow Up Pertinent Findings Denies pain 10/20/2015 None Hospital Follow Up Pertinent Findings Denies fever 10/20/2015 None diabetes mellitus Onset of Symptom onset as an adult 10/09/2015 None diabetes mellitus Quality insulin dependent 10/09/2015 None diabetes mellitus Severity moderate 10/09/2015 None diabetes mellitus Alleviating Factors insulin 10/09/2015 Novolog and Lantus diabetes mellitus Exacerbating Factors diet 10/09/2015 None diabetes mellitus Pertinent Findings Denies dizziness 10/09/2015 None diabetes mellitus Pertinent Findings Denies dyspnea 10/09/2015 None diabetes mellitus Pertinent Findings Denies lethargy 10/09/2015 None diabetes mellitus Pertinent Findings Denies nausea 10/09/2015 None diabetes mellitus Pertinent Findings Denies polyuria 10/09/2015 None hypertension Onset and Resolution ongoing 10/09/2015 None hypertension Blood Pressure Values patient checking blood pressure at home - did not bring in readings 10/09/2015 None hypertension Alleviating Factors medication 10/09/2015 None hypertension Exacerbating Factors stress 10/09/2015 None hypertension Pertinent Findings anxiety 10/09/2015 None hypertension Pertinent Findings Denies dyspnea 10/09/2015 None hypertension Pertinent Findings Denies edema 10/09/2015 None diabetes mellitus Glucose monitoring occasional glucose testing 10/09/2015 -checks every other day diabetes mellitus Test results Pt checking blood glucose readings, did not bring results to clinic 10/09/2015 None color change Location-Head/Neck on the nose 10/09/2015 None color change Quality dry 10/09/2015 None color change Color red 10/09/2015 None color change Onset and Resolution ongoing 10/09/2015 None color change Onset of Symptom 6 months ago 10/09/2015 None color change Triggers no known triggers 10/09/2015 None color change Pertinent Findings Denies pain 10/09/2015 None color change Pertinent Findings Denies itching 10/09/2015 None diabetes mellitus Onset of Symptom onset as an adult 09/21/2015 None diabetes mellitus Quality insulin dependent 09/21/2015 None diabetes mellitus Severity moderate 09/21/2015 None diabetes mellitus Alleviating Factors insulin 09/21/2015 Novolog and Lantus diabetes mellitus Exacerbating Factors diet 09/21/2015 None diabetes mellitus Pertinent Findings Denies dizziness 09/21/2015 None diabetes mellitus Pertinent Findings Denies dyspnea 09/21/2015 None diabetes mellitus Pertinent Findings Denies lethargy 09/21/2015 None diabetes mellitus Pertinent Findings Denies nausea 09/21/2015 None diabetes mellitus Pertinent Findings Denies polyuria 09/21/2015 None hyperlipidemia Onset and Resolution gradual in onset 09/21/2015 None hyperlipidemia Onset and Resolution ongoing 09/21/2015 None hyperlipidemia Onset of Symptom during adulthood 09/21/2015 None hyperlipidemia Alleviating Factors medication 09/21/2015 None hyperlipidemia Exacerbating Factors diet 09/21/2015 None hypertension Onset and Resolution ongoing 09/21/2015 None hypertension Blood Pressure Values patient checking blood pressure at home - did not bring in readings 09/21/2015 None hypertension Alleviating Factors medication 09/21/2015 None hypertension Exacerbating Factors stress 09/21/2015 None hypertension Pertinent Findings anxiety 09/21/2015 None hypertension Pertinent Findings Denies dyspnea 09/21/2015 None hypertension Pertinent Findings Denies edema 09/21/2015 None diabetes mellitus Glucose monitoring daily 09/21/2015 None diabetes mellitus Test results Pt checking blood glucose readings, did not bring results to clinic 09/21/2015 None diabetes mellitus Onset of Symptom onset as an adult 08/22/2015 None diabetes mellitus Quality insulin dependent 08/22/2015 None diabetes mellitus Severity moderate 08/22/2015 None diabetes mellitus Alleviating Factors insulin 08/22/2015 Novolog and Lantus diabetes mellitus Exacerbating Factors diet 08/22/2015 None hyperlipidemia Onset and Resolution ongoing 08/22/2015 None hyperlipidemia Onset of Symptom during adulthood 08/22/2015 None hyperlipidemia Onset and Resolution gradual in onset 08/22/2015 None hyperlipidemia Alleviating Factors medication 08/22/2015 None hyperlipidemia Exacerbating Factors diet 08/22/2015 None hypertension Alleviating Factors medication 08/22/2015 None hypertension Onset and Resolution ongoing 08/22/2015 None diabetes mellitus Glucose monitoring twice daily 08/22/2015 None diabetes mellitus Test results Pt checking blood glucose readings, did not bring results to clinic 08/22/2015 she reports that she does not check her blood glucose daily. diabetes mellitus Pertinent Findings Denies nausea 08/22/2015 None diabetes mellitus Pertinent Findings lethargy 08/22/2015 None diabetes mellitus Pertinent Findings Denies polyuria 08/22/2015 None diabetes mellitus Pertinent Findings dizziness 08/22/2015 feels lightheaded at times diabetes mellitus Pertinent Findings Denies dyspnea 08/22/2015 None hypertension Blood Pressure Values patient checking blood pressure at home - did not bring in readings 08/22/2015 None hypertension Exacerbating Factors stress 08/22/2015 None hypertension Pertinent Findings Denies dyspnea 08/22/2015 None hypertension Pertinent Findings Denies edema 08/22/2015 None hypertension Pertinent Findings anxiety 08/22/2015 None diabetes mellitus Onset of Symptom onset as an adult 04/07/2015 None diabetes mellitus Quality insulin dependent 04/07/2015 None diabetes mellitus Severity moderate 04/07/2015 None blood pressure followup Quality chronic 04/07/2015 None blood pressure followup Onset and Resolution ongoing 04/07/2015 None blood pressure followup Onset of Symptom during childhood 04/07/2015 None blood pressure followup Blood Pressure Values not checking blood pressure at home 04/07/2015 None blood pressure followup Frequency of Episodes unchanged 04/07/2015 None blood pressure followup Triggers stress 04/07/2015 None blood pressure followup Alleviating Factors diet changes 04/07/2015 None blood pressure followup Alleviating Factors exercise 04/07/2015 None blood pressure followup Alleviating Factors medication 04/07/2015 None diabetes mellitus Test results Pt not checking blood glucose readings at home 04/07/2015 None diabetes mellitus Exercise no exercise 04/07/2015 None diabetes mellitus Test results Pt not checking blood glucose readings at home 01/02/2015 She is going to rehab and they are checking it there- in rehab for double bypass June also reports that she had a heart attack about a month ago in November blood sugars running good- needs a new meter blood pressure followup Alleviating Factors diet changes 01/02/2015 None blood pressure followup Alleviating Factors exercise 01/02/2015 None blood pressure followup Alleviating Factors medication 01/02/2015 None blood pressure followup Blood Pressure Values not checking blood pressure at home 01/02/2015 None blood pressure followup Frequency of Episodes unchanged 01/02/2015 None blood pressure followup Onset and Resolution ongoing 01/02/2015 None blood pressure followup Onset of Symptom during childhood 01/02/2015 None blood pressure followup Quality chronic 01/02/2015 None blood pressure followup Triggers stress 01/02/2015 None diabetes mellitus Onset of Symptom onset as an adult 01/02/2015 None diabetes mellitus Quality insulin dependent 01/02/2015 None diabetes mellitus Severity moderate 01/02/2015 None diabetes mellitus Test results HgbA1c level 9.4 01/02/2015 None Advance Directives No Advance Directive data Encounters Encounter Performer Location Codes Date [id number]) 63891 EST. 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 PATIENT, LEVEL IV Diagnosis: Headache[ICD10: R51] Diagnosis: Traumatic subarachnoid hemorrhage without loss of consciousness, initial encounter[ICD10: S06.6X0A] Diagnosis: Urinary tract infection, site not specified[ICD10: N39.0] Diagnosis: Diarrhea, unspecified[ICD10: R19.7] Diagnosis: Unsteadiness on feet[ICD10: R26.81] Cordelia Garg MD, [facility] CPT-4: 46112 12/25/2018 [id number]) 43144 EST. PATIENT, LEVEL IV Diagnosis: Essential (primary) hypertension[ICD10: I10] Diagnosis: Type 2 diabetes mellitus with hyperglycemia[ICD10: E11.65] Diagnosis: Blister (nonthermal), right foot, initial encounter[ICD10: S90.821A] [facility] CPT-4: 96217 10/27/2018 04922 EST. 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 PATIENT, LEVEL IV Diagnosis: Type 2 diabetes mellitus with other specified complication[ICD10: E11.69] Diagnosis: Essential (primary) hypertension[ICD10: I10] Diagnosis: Other allergic rhinitis[ICD10: J30.89] Diagnosis: Chronic kidney disease, stage 4 (severe)[ICD10: N18.4] Cordelia Garg MD, [facility] CPT-4: 25858 07/20/2018 ([id number]) 95217 EST. PATIENT, LEVEL III Diagnosis: Essential (primary) hypertension[ICD10: I10] Diagnosis: Type 2 diabetes mellitus with other specified complication[ICD10: E11.69] Cordelia Garg MD, [facility] CPT-4: 24887 03/05/2018 ([id number]) 17711 EST. PATIENT, LEVEL IV Diagnosis: Type 2 diabetes mellitus with hyperglycemia[ICD10: E11.65] Diagnosis: Hypothyroidism, unspecified[ICD10: E03.9] Diagnosis: Essential (primary) hypertension[ICD10: I10] Diagnosis: Chronic kidney disease, stage 4 (severe)[ICD10: N18.4] Cordelia Garg MD, [facility] CPT-4: 97710 10/30/2017 ([id number]) 20818 EST. PATIENT, LEVEL IV Diagnosis: Hypothyroidism, unspecified[ICD10: E03.9] Diagnosis: Type 2 diabetes mellitus with hyperglycemia[ICD10: E11.65] Diagnosis: Essential (primary) hypertension[ICD10: I10] Diagnosis: Chronic kidney disease, stage 4 (severe)[ICD10: N18.4] Cordelia Garg MD, [facility] CPT-4: 09853 07/03/2017 ([id number]) 86884 EST. PATIENT, LEVEL III Diagnosis: Type 2 diabetes mellitus with hyperglycemia[ICD10: E11.65] Diagnosis: Essential (primary) hypertension[ICD10: I10] Diagnosis: Chronic kidney disease, stage 4 (severe)[ICD10: N18.4] Cordelia Garg MD, [facility] CPT-4: 80452 04/03/2017 ([id number]) 84868 EST. PATIENT, LEVEL III Diagnosis: Type 2 diabetes mellitus with hyperglycemia[ICD10: E11.65] Cordelia Garg MD, [facility] CPT-4: 41852 12/31/2016 ([id number]) 90506 EST. PATIENT, LEVEL II Diagnosis: Type 2 diabetes mellitus with hyperglycemia[ICD10: E11.65] Diagnosis: Essential (primary) hypertension[ICD10: I10] Diagnosis: Actinic keratosis[ICD10: L57.0] Cordelia Garg MD, [facility] CPT-4: 90791 10/07/2016 ([id number]) 35127 EST. PATIENT, LEVEL IV Diagnosis: Type 2 diabetes mellitus with hyperglycemia[ICD10: E11.65] Diagnosis: Essential (primary) hypertension[ICD10: I10] Cordelia Garg MD, [facility] CPT-4: 29467 09/19/2016 ([id number]) 58628 EST. PATIENT, LEVEL III Diagnosis: Type 2 diabetes mellitus with hyperglycemia[ICD10: E11.65] Diagnosis: Gastro-esophageal reflux disease without esophagitis[ICD10: K21.9] Cordelia Garg MD, [facility] CPT-4: 54454 07/08/2016 ([id number]) 76644 EST. PATIENT, LEVEL III Diagnosis: Type 2 diabetes mellitus with hyperglycemia[ICD10: E11.65] Riana Garg MD, [facility] CPT-4: 95190 05/08/2016 ([id number]) 61725 EST. PATIENT, LEVEL IV Diagnosis: Essential (primary) hypertension[ICD10: I10] Diagnosis: Type 2 diabetes mellitus with hyperglycemia[ICD10: E11.65] Diagnosis: Hypothyroidism, unspecified[ICD10: E03.9] Diagnosis: Chronic kidney disease, stage 4 (severe)[ICD10: N18.4] Cordelia Garg MD, [facility] CPT-4: 23640 03/28/2016 ([id number]) 20381 EST. PATIENT, LEVEL III Diagnosis: Type 2 diabetes mellitus with hyperglycemia[ICD10: E11.65] Diagnosis: Essential (primary) hypertension[ICD10: I10] Cordelia Garg MD, [facility] CPT-4: 07335 01/22/2016 ([id number]) 50967 EST. PATIENT, LEVEL IV Diagnosis: Type 2 diabetes mellitus with hyperglycemia[ICD10: E11.65] Diagnosis: Hypothyroidism, unspecified[ICD10: E03.9] Diagnosis: Essential (primary) hypertension[ICD10: I10] Diagnosis: Chronic kidney disease, stage 4 (severe)[ICD10: N18.4] Riana Garg MD [facility] CPT-4: 95539 12/21/2015 ([id number]) 90847 EST. PATIENT, LEVEL III Diagnosis: Type 2 diabetes mellitus with hyperglycemia[ICD10: E11.65] Riana Garg MD [facility] CPT-4: 15782 11/06/2015 ([id number]) 54350 EST. PATIENT, LEVEL IV Diagnosis: Type 2 diabetes mellitus with hyperglycemia[ICD10: E11.65] Diagnosis: Essential (primary) hypertension[ICD10: I10] Cordelia Garg MD [facility] CPT-4: 19651 10/20/2015 ([id number]) 25239 EST. PATIENT, LEVEL IV Diagnosis: Type 2 diabetes mellitus with hyperglycemia[ICD10: E11.65] Diagnosis: Essential (primary) hypertension[ICD10: I10] Diagnosis: Actinic keratosis[ICD10: L57.0] Riana Garg MD [facility] CPT-4: 90650 10/09/2015 ([id number]) 29390 EST. PATIENT, LEVEL IV Diagnosis: Type 2 diabetes mellitus with hyperglycemia[ICD10: E11.65] Diagnosis: Essential (primary) hypertension[ICD10: I10] Riana Garg MD [facility] CPT-4: 48689 09/21/2015 ([id number]) 61785 EST. PATIENT, LEVEL IV Diagnosis: Type 2 diabetes mellitus with hyperglycemia[ICD10: E11.65] Diagnosis: Hypothyroidism, unspecified[ICD10: E03.9] Diagnosis: Essential (primary) hypertension[ICD10: I10] Riana Garg MD [facility] CPT-4: 62851 08/22/2015 ([id number]) 30220 EST. PATIENT, LEVEL IV Diagnosis: ESSENTIAL HYPERTENSION[ICD9: 401.9] Diagnosis: HYPERLIPIDEMIA[ICD9: 272.4] Diagnosis: DIABETES TYPE II[ICD9: 250.00] Riana Garg MD [facility] CPT-4: 54865 04/07/2015 ([id number]) OFFICE/OUTPATIENT VISIT NEW Diagnosis: ESSENTIAL HYPERTENSION[ICD9: 401.9] Diagnosis: Diabetes mellitus out of control[ICD9: 250.02] Diagnosis: HYPOTHYROIDISM[ICD9: 244.9] Diagnosis: HYPERLIPIDEMIA[ICD9: 272.4] [facility] CPT-4: 41574 01/02/2015 Plan of Care Planned Activity Notes Codes Status Date Visit Plan: Headaches -subarachnoid hemorrhage -patient was not a surgical candidate -continue to monitor CKD -anemia- family has chosen not to transfuse -continue with hospice care Right hip pain -no fracture -continue tramadol as needed for pain management 01/25/2019 Appointment: Cordelia Kumar WPtel: [facility] [place] [phone] (15 min) Moderate 01/25/2019 Patient Education: Patient Medication Summary Completed 01/25/2019 Appointment: Cordelia Kumar WPtel: [address] [place], [place] [phone] (30 min) Complex 12/29/2018 Visit Plan: Subarachnoid hemorrhage post fall -patient is not a surgical candidate -monitor symptoms UTI-recurrent -on antibiotics Gait instability-recommend walker Loose stools -start probiotic twice daily 12/25/2018 Appointment: Cordelia Kumar WPtel: [facility] (15 min) Moderate 12/25/2018 Patient Education: Patient Medication Summary Completed 12/25/2018 Visit Plan: Hypertension - well controlled - continue with current medications, continue with no added salt diet. Pt has been encouraged to exercise daily. The pt has been advised to call the office if there are any acute concerns about change in blood pressure readings at home. Diabetes Mellitus - improved control since she is at the assisted. I have recommended for the patient to have follow up labs prior to the next office visit. The patient has been instructed to continue with current medications as previously directed, continue with regular FSBS monitoring to assure continued control of diabetes. Pt to call for any acute concerns, complaints, or if the blood glucose readings are starting to become less controlled. Blister of heel - discussed with pt and her DTR - continued use of cushion on heel - avoid shoes until lesion heals, and keep pressure off of heals. 10/27/2018 App[facility]ment: [phone] [facility] (15 min) Moderate 10/27/2018 Patient Education: Patient Medication Summary Completed 10/27/2018 Patient Education: Hypertension Completed 10/27/2018 Patient Education: Diabetes Completed 10/27/2018 Appointment: Riana Garg WPtel: [phone] [facility] (15 min) Moderate 10/14/2018 Patient Education: Patient Medication Summary Completed 09/18/2018 Care Plan: Iron Pending 09/18/2018 Care Plan: Ferritin Pending 09/18/2018 Care Plan: Tibc Pending 09/18/2018 Patient Education: Patient Medication Summary Completed 09/11/2018 Care Plan: Urine Culture Pending 09/11/2018 Visit Plan: Dementia with Behaviors - I have discussed this patient's case with the pt and available family. The patient is on medication which appears to be controlling the worst of the symptoms. I have not recomm ended a change to the regimen at this time, but will continue to closely monitor the medications for effectiveness. 08/26/2018 Appointment: [phone] [facility] (30 min) Complex 08/26/2018 Patient Education: Patient Medication Summary Completed 08/26/2018 Patient Education: Patient Medication Summary Completed 08/25/2018 Visit Plan: Hypertension - well controlled - continue with current medications, continue with no added salt diet. Pt has been encouraged to exercise daily. The pt has been advised to call the office if there are any acute concerns about change in blood pressure readings at home. Diabetes Mellitus - controlled - per recent FSBS reports. I have recommended for the patient to have follow up labs prior to the next office visit. The patient has been instructed to continue with current medications as previously directed, continue with regular FSBS monitoring to assure continued control of diabetes. Pt to call for any acute concerns, complaints, or if the blood glucose readings are starting to become less controlled. CKD-patient sees forming department end finder-has decided not to do dialysis right now Allergies-rx for flonase 07/20/2018 Appointment: Cordelia Kumar WPtel: [phone] [phone] [place] (15 min) Moderate 07/20/2018 Patient Education: Patient Medication Summary Completed 07/20/2018 Patient Education: Hypertension Completed 07/20/2018 Visit Plan: Hypertension - well controlled - continue with current medications, continue with no added salt diet. Pt has been encouraged to exercise daily. The pt has been advised to call the office if there are any acute concerns about change in blood pressure readings at home. Diabetes Mellitus - I have recommended for the patient to have follow up labs prior to the next office visit. The patient has been instructed to continue with current medications as previously directed, continue with regular FSBS monitoring to assure continued control of diabetes. Pt to call for any acute concerns, complaints, or if the blood glucose readings are starting to become less controlled. 03/05/2018 Appointment: [phone] [phone] (30 min) Complex 03/05/2018 Patient Education: Patient Medication Summary Completed 03/05/2018 Visit Plan: Diabetes Mellitus - controlled - per recent FSBS reports. PATIENT IS TESTING BLOOD SUGARS 4X/DAY DUE TO SLIDING SCALE INSULIN- blood sugar log reviewed to document 4x/day testing--see scanned document for readings-I have recommended for the patient to have follow up labs prior to the next office visit. The patient has been instructed to continue with current medications as previously directed, continue with regular FSBS monitoring to assure continued control of diabetes. Pt to call for any acute concerns, complaints, or if the blood glucose readings are starting to become less controlled. Hypertension - well controlled - continue with current medications, continue with no added salt diet. Pt has been encouraged to exercise daily. The pt has been advised to call the office if there are any acute concerns about change in blood pressure readings at home. Left thumb pain-RX voltaren gel 10/30/2017 Visit Plan: Diabetes Mellitus - controlled - per recent FSBS reports. I have recommended for the patient to have follow up labs prior to the next office visit. The patient has been instructed to continue with current medications as previously directed, continue with regular FSBS monitoring to assure continued control of diabetes. Pt to call for any acute concerns, complaints, or if the blood glucose readings are starting to become less controlled. Hypertension - well controlled - continue with current medications, continue with no added salt diet. Pt has been encouraged to exercise daily. The pt has been advised to call the office if there are any acute concerns about change in blood pressure readings at home. Left thumb pain-RX voltaren gel 10/30/2017 Appointment: Cordelia Kumar WPtel: [phone] [phone] (30 min) Complex 10/30/2017 Patient Education: Patient Medication Summary Completed 10/30/2017 Visit Plan: Hypertension - well controlled - continue with current medications, continue with no added salt diet. Pt has been encouraged to exercise daily. The pt has been advised to call the office if there are any acute concerns about change in blood pressure readings at home. PUMP LEGS BEFORE STANDING Hypothyroidism - pt with chronic hypothyroidism, continue with current medication, will monitor pt to signs or symptoms of lack of adequate supplementation. Pt is to continue with current dose of medication unless directed otherwise. Check labs at regular intervals wither q 3 months or q 6 months based on previous levels of control. Diabetes Mellitus - controlled - per recent FSBS reports. I have recommended for the patient to have follow up labs prior to the next office visit. The patient has been instructed to continue with current medications as previously directed, continue with regular FSBS monitoring to assure continued control of diabetes. Pt to call for any acute concerns, complaints, or if the blood glucose readings are starting to become less controlled. Left thumb eigj-bkrbhlv-fvnhniqvd voltaren gel if symptoms persist 07/03/2017 Appointment: Cordelia Kumar WPtel: [phone] [phone] (30 min) Complex 07/03/2017 Patient Education: Patient Medication Summary Completed 07/03/2017 Patient Education: Hypertension Completed 07/03/2017 Visit Plan: Hypertension - well controlled - continue with current medications, continue with no added salt diet. Pt has been encouraged to exercise daily. The pt has been advised to call the office if there are any acute concerns about change in blood pressure readings at home. Diabetes Mellitus - I have recommended for the patient to have follow up labs prior to the next office visit. The patient has been instructed to continue with current medications as previously directed, continue with regular FSBS monitoring to assure continued control of diabetes. Pt to call for any acute concerns, complaints, or if the blood glucose readings are starting to become less controlled. 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 Pt has been encouraged to exercise daily. The pt has been advised to call the office if there are any acute concerns about change in blood pressure readings at home. Diabetes Mellitus - I have recommended for the patient to have follow up labs prior to the next office visit. The patient has been instructed to continue with current medications as previously directed, continue with regular FSBS monitoring to assure continued control of diabetes. Patient is insulin dependent and requires blood sugar testing 4x/day. Pt to call for any acute concerns, complaints, or if the blood glucose readings are starting to become less controlled. 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 The patient has been instructed to continue with current medications as previously directed, continue with regular FSBS monitoring to assure continued control of diabetes. Pt to call for any acute concerns, complaints, or if the blood glucose readings are starting to become less controlled. 12/31/2016 Appointment: Cordelia Kumar WPtel: [phone] [phone] (30 min) Complex 12/31/2016 Patient Education: Patient Medication Summary Completed 12/31/2016 Visit Plan: Hypertension - well controlled - continue with current medications, continue with no added salt diet. Pt has been encouraged to exercise daily. The pt has been advised to call the office if there are any acute concerns about change in blood pressure readings at home. Diabetes Mellitus - controlled - per recent FSBS reports. I have recommended for the patient to have follow up labs prior to the next office visit. The patient has been instructed to continue with current medications as previously directed, continue with regular FSBS monitoring to assure continued control of diabetes. Pt to call for any acute concerns, complaints, or if the blood glucose readings are starting to become less controlled. Wound Instructions-AK nose- Pt was instructed to keep the wound clean, wash with antibacterial soap, use triple antibiotic ointment, call if redness, pustular drainage, or any other acute concerns. 10/07/2016 Visit Plan: Hypertension - well controlled - continue with current medications, continue with no added salt diet. Pt has been encouraged to exercise daily. The pt has been advised to call the office if there are any acute concerns about change in blood pressure readings at home. Diabetes Mellitus - controlled - per recent FSBS reports. I have recommended for the patient to have follow up labs prior to the next office visit. The patient has been instructed to continue with current medications as previously directed, continue with regular FSBS monitoring to assure continued control of diabetes. Pt to call for any acute concerns, complaints, or if the blood glucose readings are starting to become less controlled. Patient is testing blood sugars 4x daily due to wide fluctuations in blood sugars and history of hypoglycemic events requiring emergency intervention. Wound Instructions-ME nose- Pt was instructed to keep the wound clean, wash with antibacterial soap, use triple antibiotic ointment, call if redness, pustular drainage, or any other acute concerns. 10/07/2016 Appointment: Cordelia Kumar WPtel: [facility] [place] [address] (30 min) Complex 10/07/2016 Appointment: Cordelia Kumar WPtel: [address] [place], [place] [id number] [address] (30 min) Complex 10/07/2016 Patient Education: Patient Medication Summary Completed 10/07/2016 Visit Plan: Diabetes Mellitus - NOT WELL CONTROLLED-HAVING EPISODES OF HYPOGLYCEMIA-DISCUSSED WITH DR GARG AND MEDICATIONS ADJUSTED. I have recommended for the patient to have follow up labs prior to the next office visit. The patient has been instructed to continue with current medications as previously directed, continue with regular FSBS monitoring to assure continued control of diabetes. Pt to call for any acute concerns, complaints, or if the blood glucose readings are starting to become less controlled. Hypertension - well controlled - continue with current medications, continue with no added salt diet. Pt has been encouraged to exercise daily. The pt has been advised to call the office if there are any acute concerns about change in blood pressure readings at home. 09/19/2016 Appointment: Cordelia Kumar WPtel: [phone] (30 min) Complex 09/19/2016 Patient Education: Patient Medication Summary Completed 09/19/2016 Visit Plan: Diabetes Mellitus - controlled - per recent FSBS reports. I have recommended for the patient to have follow up labs prior to the next office visit. The patient has been instructed to continue with current medications as previously directed, continue with regular FSBS monitoring to assure continued control of diabetes. Pt to call for any acute concerns, complaints, or if the blood glucose readings are starting to become less controlled. GERD-mylanta prn for gi upset. 07/08/2016 Patient Education: Patient Medication Summary Completed 07/08/2016 Appointment: Cordelia Kumar WPtel: [phone] [facility] [place] [address] (30 min) Complex 06/20/2016 Visit Plan: Diabetes Mellitus - Uncontrolled - per recent FSBS reports. - but improved from previous I have recommended for the patient to have follow up labs prior to the next office visit. The patient has been in structed to continue with current medications as previously directed, continue with regular FSBS monitoring to assure continued control of diabetes. Pt to call for any acute concerns, complaints, or if the blood glucose readings are starting to become less controlled. I have recommended for the patient to follow more strictly to the diabetic diet as discussed in clinic to allow for greater blood glucose control. Finger cellulitis - improved. 05/08/2016 Patient Education: Patient Medication Summary Completed 05/08/2016 Visit Plan: Hypertension - well controlled - continue with current medications, continue with no added salt diet. Pt has been encouraged to exercise daily. The pt has been advised to call the office if there are any acute concerns about change in blood pressure readings at home. Diabetes Mellitus - I have recommended for the patient to have follow up labs prior to the next office visit. The patient has been instructed to continue with current medications as previously directed, continue with regular FSBS monitoring to assure continued control of diabetes. Pt to call for any acute concerns, complaints, or if the blood glucose readings are starting to become less controlled. I have recommended for the patient to follow more strictly to the diabetic diet as discussed in clinic to allow for greater blood glucose control. Hypothyroidism - pt with chronic hypothyroidism, continue with current medication, will monitor pt to signs or symptoms of lack of adequate supplementation. Pt is to continue with current dose of medication unless directed otherwise. Check labs at regular intervals wither q 3 months or q 6 months based on previous levels of control. Chronic renal disease stage 4- patient to make appt with [place] [facility] Addendum: Patient noncompliant with blood sugar logs-she has been instructed to test QID but only tests daily- she did not bring her log for review today.- Patient has since moved to [facility] and they are checking her blood sugars AC and HS due to uncontrolled diabetes-she is on a sliding scale insulin which requires more frequent monitoring of blood sugars. 03/28/2016 Visit Plan: Hypertension - well controlled - continue with current medications, continue with no added salt diet. Pt has been encouraged to exercise daily. The pt has been advised to call the office if there are any acute concerns about change in blood pressure readings at home. Diabetes Mellitus - I have recommended for the patient to have follow up labs prior to the next office visit. The patient has been instructed to continue with current medications as previously directed, continue with regular FSBS monitoring to assure continued control of diabetes. Pt to call for any acute concerns, complaints, or if the blood glucose readings are starting to become less controlled. I have recommended for the patient to follow more strictly to the diabetic diet as discussed in clinic to allow for greater blood glucose control. Hypothyroidism - pt with chronic hypothyroidism, continue with current medication, will monitor pt to signs or symptoms of lack of adequate supplementation. Pt is to continue with current dose of medication unless directed otherwise. Check labs at regular intervals wither q 3 months or q 6 months based on previous levels of control. Chronic renal disease stage 4- patient to make appt with [place] [facility] 03/28/2016 Visit Plan: Hypertension - well controlled - continue with current medications, continue with no added salt diet. Pt has been encouraged to exercise daily. The pt has been advised to call the office if there are any acute concerns about change in blood pressure readings at home. Diabetes Mellitus - I have recommended for the patient to have follow up labs prior to the next office visit. The patient has been instructed to continue with current medications as previously directed, continue with regular FSBS monitoring to assure continued control of diabetes. Pt to call for any acute concerns, complaints, or if the blood glucose readings are starting to become less controlled. I have recommended for the patient to follow more strictly to the diabetic diet as discussed in clinic to allow for greater blood glucose control. Hypothyroidism - pt with chronic hypothyroidism, continue with current medication, will monitor pt to signs or symptoms of lack of adequate supplementation. Pt is to continue with current dose of medication unless directed otherwise. Check labs at regular intervals wither q 3 months or q 6 months based on previous levels of control. Chronic renal disease stage 4- patient to make appt with [place] [facility] Addendum: Patient noncompliant with blood sugar logs-she has been instructed to test QID but only tests daily- she did not bring her log for review today.- Patient has since moved to [facility] since this office visit. They are checking her blood sugars AC and HS and she is on a sliding scale to control her diabetes. 03/28/2016 Visit Plan: Hypertension - well controlled - continue with current medications, continue with no added salt diet. Pt has been encouraged to exercise daily. The pt has been advised to call the office if there are any acute concerns about change in blood pressure readings at home. Diabetes Mellitus - I have recommended for the patient to have follow up labs prior to the next office visit. The patient has been instructed to continue with current medications as previously directed, continue with regular FSBS monitoring to assure continued control of diabetes. Pt to call for any acute concerns, complaints, or if the blood glucose readings are starting to become less controlled. I have recommended for the patient to follow more strictly to the diabetic diet as discussed in clinic to allow for greater blood glucose control. Hypothyroidism - pt with chronic hypothyroidism, continue with current medication, will monitor pt to signs or symptoms of lack of adequate supplementation. Pt is to continue with current dose of medication unless directed otherwise. Check labs at regular intervals wither q 3 months or q 6 months based on previous levels of control. Chronic renal disease stage 4- patient to make appt with [place] [facility] Addendum: Patient has since moved to [facility] since this office visit. They are checking her blood sugars AC and HS and she is on a sliding scale to control her d iabetes. 03/28/2016 Patient Education: Patient Medication Summary Completed 03/28/2016 Appointment: Cordelia Kumar WPtel: [id number] (30 min) Complex 03/26/2016 Appointment: Cordelia Kumar WPtel: [phone] [id number] (30 min) Complex 02/20/2016 Visit Plan: Diabetes Mellitus - Uncontrolled - per recent FSBS reports. I have recommended for the patient to have follow up labs prior to the next office visit. The patient has been instructed to continue with current medications as previously directed, continue with regular FSBS monitoring to assure continued control of diabetes. Pt to call for any acute concerns, complaints, or if the blood glucose readings are starting to become less controlled. I have recommended for the patient to follow more strictly to the diabetic diet as discussed in clinic to allow for greater blood glucose control. Hypertension - well controlled - continue with current medications, continue with no added salt diet. Pt has been encouraged to exercise daily. The pt has been advised to call the office if there are any acute concerns about change in blood pressure readings at home. 01/22/2016 [facility]: [phone] [facility] Complex 01/22/2016 Patient Education: Patient Medication Summary Completed 01/22/2016 Patient Education: Patient Medication Summary Completed 12/27/2015 Care Plan: Urine Culture Cancelled 12/27/2015 Visit Plan: Hypertension - well controlled - continue with current medications, continue with no added salt diet. Pt has been encouraged to exercise daily. The pt has been advised to call the office if there are any acute concerns about change in blood pressure readings at home. Diabetes Mellitus - Uncontrolled - per recent FSBS reports. I have recommended for the patient to have follow up labs prior to the next office visit. The patient has been instructed to continue with current medications as previously directed, continue with regular FSBS monitoring to assure continued control of diabetes. Pt to call for any acute concerns, complaints, or if the blood glucose readings are starting to become less controlled. I have recommended for the patient to follow more strictly to the diabetic diet as discussed in clinic to allow for greater blood glucose control. Hypothyroidism - pt with chronic hypothyroidism, continue with current medication, will monitor pt to signs or symptoms of lack of adequate supplementation. Pt is to continue with current dose of medication unless directed otherwise. Check labs at regular intervals wither q 3 months or q 6 months based on previous levels of control. 12/21/2015 Visit Plan: Hypertension - well controlled - continue with current medications, continue with no added salt diet. Pt has been encouraged to exercise daily. The pt has been advised to call the office if there are any acute concerns about change in blood pressure readings at home. Diabetes Mellitus - Uncontrolled - per recent FSBS reports. I have recommended for the patient to have follow up labs prior to the next office visit. The patient has been instructed to continue with current medications as previously directed, continue with regular FSBS monitoring to assure continued control of diabetes. Pt to call for any acute concerns, complaints, or if the blood glucose readings are starting to become less controlled. I have recommended for the patient to follow more strictly to the diabetic diet as discussed in clinic to allow for greater blood glucose control. Hypothyroidism - pt with chronic hypothyroidism, continue with current medication, will monitor pt to signs or symptoms of lack of adequate supplementation. Pt is to continue with current dose of medication unless directed otherwise. Check labs at regular intervals wither q 3 months or q 6 months based on previous levels of control. stage 4 renal failure - pt has been seeing a group in [facility] - but would like to be seen in [place] to avoid excessive travel. 12/21/2015 Patient Education: Patient Medication Summary Completed 12/21/2015 Appointment: Riana Garg WPtel[id number] ([facility] min) Moderate 12/18/2015 Visit Plan: DM - medications unchanged today - pt was again without her glucose readings - recommended family to bring in her book. 11/06/2015 Patient Education: Patient Medication Summary Completed 11/06/2015 Visit Plan: Diabetes Mellitus - I have recommended for the patient to have follow up labs prior to the next office visit. The patient has been instructed to continue with current medications as previously directed, continue with regular FSBS monitoring to assure continued control of diabetes. Pt to call for any acute concerns, complaints, or if the blood glucose readings are starting to become less controlled. HOLD MEALTIME INSULIN AT BREAKFAST TIME IF YOU AREN'T EATING BREAKFAST-ONLY TAKE IT IF YOU EAT BREAKFAST Hypertension - uncontrolled - BRING MONITOR TO NEXT APPT-FOLLOW UP IN [address] GARG. The patient has been counseled to cut back on salt in diet for a no added salt diet, low fat diet, start an exercise program with low weight bearing exercises and higher aerobic activity for heart health. The patient is to check blood pressure readings as an outpatient and either fax, call, or email the readings to the office next week for practitioner to review. The pt is to call for acute concerns. 10/20/2015 Appointment: (30 min) Complex 10/20/2015 Patient Education: Patient Medication Summary Completed 10/20/2015 Patient Education: Hypertension Completed 10/20/2015 Visit Plan: Hypertension - uncontrolled - the patient's medications have been modified as documented in the visit note. The patient has been counseled to cut back on salt in diet for a no added salt diet, low fat diet, start an exercise program with low weight bearing exercises and higher aerobic activity for heart health. The patient is to check blood pressure readings as an outpatient and either fax, call, or email the readings to the office next week for practitioner to review. The pt is to call for acute concerns. Diabetes Mellitus - Uncontrolled - per recent FSBS reports. I have recommended for the patient to have follow up labs prior to the next office visit. The patient has been instructed to continue with current medications as previously directed, continue with regular FSBS monitoring to assure continued control of diabetes. Pt to call for any acute concerns, complaints, or if the blood glucose readings are starting to become less controlled. I have recommended for the patient to follow more strictly to the diabetic diet as discussed in clinic to allow for greater blood glucose control. actinic keratosis - recommended to treat at next office visit 10/09/2015 Patient Education: Patient Medication Summary Completed 10/09/2015 Patient Education: Hypertension Completed 10/09/2015 Visit Plan: Diabetes Mellitus - Uncontrolled - per recent FSBS reports. I have recommended for the patient to have follow up labs prior to the next office visit. The patient has been instructed to continue with current medications as previously directed, continue with regular FSBS monitoring to assure continued control of diabetes. Pt to call for any acute concerns, complaints, or if the blood glucose readings are starting to become less controlled. I have recommended for the patient to follow more strictly to the diabetic diet as discussed in clinic to allow for greater blood glucose control. increase of novolog from 8units AM and noon to 12 units AM and noon and increase of lantus from 25 units qhs to 30 units x 3 days, then 35 units thereafter Hypertension - uncontrolled - the patient's medications have been modified as documented in the visit note. The patient has been counseled to cut back on salt in diet for a no added salt diet, low fat diet, start an exercise program with low weight bearing exercises and higher aerobic activity for heart health. The patient is to check blood pressure readings as an outpatient and either fax, call, or email the readings to the office next week for practitioner to review. The pt is to call for acute concerns. increase losartan to 100mg daily 09/21/2015 Patient Education: Patient Medication Summary Completed 09/21/2015 Patient Education: Hypertension Completed 09/21/2015 Visit Plan: Hypertension - uncontrolled - the patient's medications have been modified as documented in the visit note. The patient has been counseled to cut back on salt in diet for a no added salt diet, low fat diet, start an exercise program with low weight bearing exercises and higher aerobic activity for heart health. The patient is to check blood pressure readings as an outpatient and either fax, call, or email the readings to the office next week for practitioner to review. The pt is to call for acute concerns. Diabetes Mellitus - Uncontrolled - per recent FSBS reports. I have recommended for the patient to have follow up labs prior to the next office visit. The patient has been instructed to continue with current medications as previously directed, continue with regular FSBS monitoring to assure continued control of diabetes. Pt to call for any acute concerns, complaints, or if the blood glucose readings are starting to become less controlled. I have recommended for the patient to follow more strictly to the diabetic diet as discussed in clinic to allow for greater blood glucose control. Hypothyroidism - pt with chronic hypothyroidism, continue with current medication, will monitor pt to signs or symptoms of lack of adequate supplementation. Pt is to continue with current dose of medication unless directed otherwise. Check labs at regular intervals wither q 3 months or q 6 months based on previous levels of control. 08/22/2015 Appointment: Nurse Visit 08/22/2015 Patient Education: Patient Medication Summary Completed 08/22/2015 Patient Education: Hypertension Completed 08/22/2015 Appointment: (15 min) Moderate 08/07/2015 Visit Plan: Hypertension - well controlled - continue with current medications, continue with no added salt diet. Pt has been encouraged to exercise daily. The pt has been advised to call the office if there are any acute concerns about change in blood pressure readings at home. Diabetes Mellitus - controlled - per recent FSBS reports. I have recommended for the patient to have follow up labs prior to the next office visit. The patient has been instructed to continue with current medications as previously directed, continue with regular FSBS monitoring to assure continued control of diabetes. Pt to call for any acute concerns, complaints, or if the blood glucose readings are starting to become less controlled. Hyperlipidemia - pt has been counseled about appropriate diet, exercise, and need for low fat food choices. I have discussed the need for the patient to take medications as prescribed. If the patient has negative side effects from the medication, they are to CALL the office and not abruptly discontinue the medication without discussion with a practitioner in the office. We will check labs in 3-6 months for follow up on the patient's chronic medical problem and to assure normal liver response to me dications. 04/07/2015 Appointment: Riana Garg WPtel: [id number] [facility] 04/07/2015 Patient Education: Patient Medication Summary Completed 04/07/2015 Patient Education: Hypertension Completed 04/07/2015 Visit Plan: Diabetes Mellitus - Uncontrolled - per recent FSBS reports. I have recommended for the patient to have follow up labs prior to the next office visit. The patient has been instructed to continue with current medications as previously directed, continue with regular FSBS monitoring to assure continued control of diabetes. Pt to call for any acute concerns, complaints, or if the blood glucose readings are starting to become less controlled. I have recommended for the patient to follow more strictly to the diabetic diet as discussed in clinic to allow for greater blood glucose control. Pt to continue on current RX - pt to check FSBS. Hypertension - well controlled - continue with current medications, continue with no added salt diet. Pt has been encouraged to exercise daily. The pt has been advised to call the office if there are any acute concerns about change in blood pressure readings at home. Hyperlipidemia - pt has been counseled about appropriate diet, exercise, and need for low fat food choices. I have discussed the need for the patient to take medications as prescribed. If the patient has negative side effects from the medication, they are to CALL the office and not abruptly discontinue the medication without discussion with a practitioner in the office. We will check labs in 3-6 months for follow up on the patient's chronic medical problem and to assure normal liver response to medications. Hypothyroidism - pt with chronic hypothyroidism, continue with current medication, will monitor pt to signs or symptoms of lack of adequate supplementation. Pt is to continue with current dose of medication unless directed otherwise. Check labs at regular intervals wither q 3 months or q 6 months based on previous levels of control. 01/02/2015 Appointment: [facility]arg [facility]Ptel[phone] [id number] [place] [facility] New Patient 01/02/2015 Patient Education: Patient Medication Summary Completed 01/02/2015 Patient Education: Hypertension Completed 01/02/2015 Instructions Comment . Diabetes Mellitus - Uncontrolled - per recent FSBS reports. I have recommended for the patient to have follow up labs prior to the next office visit. The patient has been instructed to continue with current medications as previously directed, continue with regular FSBS monitoring to assure continued control of diabetes. Pt to call for any acute concerns, complaints, or if the blood glucose readings are starting to become less controlled. I have recommended for the patient to follow more strictly to the diabetic diet as discussed in clinic to allow for greater blood glucose control. Pt to continue on current RX - pt to check FSBS. Hypertension - well controlled - continue with current medications, continue with no added salt diet. Pt has been encouraged to exercise daily. The pt has been advised to call the office if there are any acute concerns about change in blood pressure readings at home. Hyperlipidemia - pt has been counseled about appropriate diet, exercise, and need for low fat food choices. I have discussed the need for the patient to take medications as prescribed. If the patient has negative side effects from the medication, they are to CALL the office and not abruptly discontinue the medication without discussion with a practitioner in the office. We will check labs in 3-6 months for follow up on the patient's chronic medical problem and to assure normal liver response to medications. Hypothyroidism - pt with chronic hypothyroidism, continue with current medication, will monitor pt to signs or symptoms of lack of adequate supplementation. Pt is to continue with current dose of medication unless directed otherwise. Check labs at regular intervals wither q 3 months or q 6 months based on previous levels of control. . Hypertension - well controlled - continue with current medications, continue with no added salt diet. Pt has been encouraged to exercise daily. The pt has been advised to call the office if there are any acute concerns about change in blood pressure readings at home. Diabetes Mellitus - I have recommended for the patient to have follow up labs prior to the next office visit. The patient has been instructed to continue with current medications as previously directed, continue with regular FSBS monitoring to assure continued control of diabetes. Pt to call for any acute concerns, complaints, or if the blood glucose readings are starting to become less controlled. I have recommended for the patient to follow more strictly to the diabetic diet as discussed in clinic to allow for greater blood glucose control. Hypothyroidism - pt with chronic hypothyroidism, continue with current medication, will monitor pt to signs or symptoms of lack of adequate supplementation. Pt is to continue with current dose of medication unless directed otherwise. Check labs at regular intervals wither q 3 months or q 6 months based on previous levels of control. Chronic renal disease stage 4-patient to make appt with [place] [facility] Addendum: Patient noncompliant with blood sugar logs-she has been instructed to test QID but only tests daily-she did not bring her log for review today.- Patient has since moved to [facility] and they are checking her blood sugars AC and HS due to uncontrolled diabetes-she is on a sliding scale insulin which requires more frequent monitoring of blood sugars. . Hypertension - well controlled - continue with current medications, continue with no added salt diet. Pt has been encouraged to exercise daily. The pt has been advised to call the office if there are any acute concerns about change in blood pressure readings at home. PUMP LEGS BEFORE STANDING Hypothyroidism - pt with chronic hypothyroidism, continue with current medication, will monitor pt to signs or symptoms of lack of adequate supplementation. Pt is to continue with current dose of medication unless directed otherwise. Check labs at regular intervals wither q 3 months or q 6 months based on previous levels of control. Diabetes Mellitus - controlled - per recent FSBS reports. I have recommended for the patient to have follow up labs prior to the next office visit. The patient has been instructed to continue with current medications as previously directed, continue with regular FSBS monitoring to assure continued control of diabetes. Pt to call for any acute concerns, complaints, or if the blood glucose readings are starting to become less controlled. Left thumb [id number] voltaren gel if symptoms persist . Hypertension - well controlled - continue with current medications, continue with no added salt diet. Pt has been encouraged to exercise daily. The pt has been advised to call the office if there are any acute concerns about change in blood pressure readings at home. Diabetes Mellitus - I have recommended for the patient to have follow up labs prior to the next office visit. The patient has been instructed to continue with current medications as previously directed, continue with regular FSBS monitoring to assure continued control of diabetes. Pt to call for any acute concerns, complaints, or if the blood glucose readings are starting to become less controlled. I have recommended for the patient to follow more strictly to the diabetic diet as discussed in clinic to allow for greater blood glucose control. Hypothyroidism - pt with chronic hypothyroidism, continue with current medication, will monitor pt to signs or symptoms of lack of adequate supplementation. Pt is to continue with current dose of medication unless directed otherwise. Check labs at regular intervals wither q 3 months or q 6 months based on previous levels of control. Chronic renal disease stage 4-patient to make appt with [facility] . Hypertension - well controlled - continue with current medications, continue with no added salt diet. Pt has been encouraged to exercise daily. The pt has been advised to call the office if there are any acute concerns about change in blood pressure readings at home. Diabetes Mellitus - I have recommended for the patient to have follow up labs prior to the next office visit. The patient has been instructed to continue with current medications as previously directed, continue with regular FSBS monitoring to assure continued control of diabetes. Pt to call for any acute concerns, complaints, or if the blood glucose readings are starting to become less controlled. I have recommended for the patient to follow more strictly to the diabetic diet as discussed in clinic to allow for greater blood glucose control. Hypothyroidism - pt with chronic hypothyroidism, continue with current medication, will monitor pt to signs or symptoms of lack of adequate supplementation. Pt is to continue with current dose of medication unless directed otherwise. Check labs at regular intervals wither q 3 months or q 6 months based on previous levels of control. Chronic renal disease stage 4-patient to make appt with [facility] Addendum: Patient noncompliant with blood sugar logs-she has been instructed to test QID but only tests daily-she did not bring her log for review today.- Patient has since moved to [facility] since this office visit. They are checking her blood sugars AC and HS and she is on a sliding scale to control her diabetes. . Hypertension - well controlled - continue with current medications, continue with no added salt diet. Pt has been encouraged to exercise daily. The pt has been advised to call the office if there are any acute concerns about change in blood pressure readings at home. Diabetes Mellitus - controlled - per recent FSBS reports. I have recommended for the patient to have follow up labs prior to the next office visit. The patient has been instructed to continue with current medications as previously directed, continue with regular FSBS monitoring to assure continued control of diabetes. Pt to call for any acute concerns, complaints, or if the blood glucose readings are starting to become less controlled. Hyperlipidemia - pt has been counseled about appropriate diet, exercise, and need for low fat food choices. I have discussed the need for the patient to take medications as prescribed. If the patient has negative side effects from the medication, they are to CALL the office and not abruptly discontinue the medication without discussion with a practitioner in the office. We will check labs in 3-6 months for follow up on the patient's chronic medical problem and to assure normal liver response to medications. Next time you have an appt - please bring in your blood glucose log sheet Dr. Garg will send a referral today to the [facility] - they are located in the [facility] at [address] [place] [address] in [place] - phone number is [phone] . Hypertension - well controlled - continue with current medications, continue with no added salt diet. Pt has been encouraged to exercise daily. The pt has been advised to call the office if there are any acute concerns about change in blood pressure readings at home. Diabetes Mellitus - Uncontrolled - per recent FSBS reports. I have recommended for the patient to have follow up labs prior to the next office visit. The patient has been instructed to continue with current medications as previously directed, continue with regular FSBS monitoring to assure continued control of diabetes. Pt to call for any acute concerns, complaints, or if the blood glucose readings are starting to become less controlled. I have recommended for the patient to follow more strictly to the diabetic diet as discussed in clinic to allow for greater blood glucose control. Hypothyroidism - pt with chronic hypothyroidism, continue with current medication, will monitor pt to signs or symptoms of lack of adequate supplementation. Pt is to continue with current dose of medication unless directed otherwise. Check labs at regular intervals wither q 3 months or q 6 months based on previous levels of control. Next time you have an appt - please bring in your blood glucose log sheet Dr. Garg will send a referral today to the [facility] - they are located in the [facility] at [address] [facility] in [place] - phone number is [phone] . Hypertension - well controlled - continue with current medications, continue with no added salt diet. Pt has been encouraged to exercise daily. The pt has been advised to call the office if there are any acute concerns about change in blood pressure readings at home. Diabetes Mellitus - Uncontrolled - per recent FSBS reports. I have recommended for the patient to have follow up labs prior to the next office visit. The patient has been instructed to continue with current medications as previously directed, continue with regular FSBS monitoring to assure continued control of diabetes. Pt to call for any acute concerns, complaints, or if the blood glucose readings are starting to become less controlled. I have recommended for the patient to follow more strictly to the diabetic diet as discussed in clinic to allow for greater blood glucose control. Hypothyroidism - pt with chronic hypothyroidism, continue with current medication, will monitor pt to signs or symptoms of lack of adequate supplementation. Pt is to continue with current dose of medication unless directed otherwise. Check labs at regular intervals wither q 3 months or q 6 months based on previous levels of control. stage 4 renal failure - pt has been seeing a group in [facility] - but would like to be seen in [place] to avoid excessive travel. . 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 The patient is on medication which appears to be controlling the worst of the symptoms. I have not recommended a change to the regimen at this time, but will continue to closely monitor the medications for effectiveness. BRING BLOOD SUGAR LOG IN 1 MONTH TO APPOINTMENT. CHECK IT AT LEAST TWICE DAILY . Diabetes Mellitus - Uncontrolled - per recent FSBS reports. I have recommended for the patient to have follow up labs prior to the next office visit. The patient has been instructed to continue with current medications as previously directed, continue with regular FSBS monitoring to assure continued control of diabetes. Pt to call for any acute concerns, complaints, or if the blood glucose readings are starting to become less controlled. I have recommended for the patient to follow more strictly to the diabetic diet as discussed in clinic to allow for greater blood glucose control. Hypertension - well controlled - continue with current medications, continue with no added salt diet. Pt has been encouraged to exercise daily. The pt has been advised to call the office if there are any acute concerns about change in blood pressure readings at home. . Diabetes Mellitus - Uncontrolled - per recent FSBS reports. - but improved from previous I have recommended for the patient to have follow up labs prior to the next office visit. The patient has been instructed to continue with current medications as previously directed, continue with regular FSBS monitoring to assure continued control of diabetes. Pt to call for any acute concerns, complaints, or if the blood glucose readings are starting to become less controlled. I have recommended for the patient to follow more strictly to the diabetic diet as discussed in clinic to allow for greater blood glucose control. Finger cellulitis - improved. increase novolog to 12 units with morning meal and noon meal increase lantus to 30 units at bedtime x 3 days then increase up to 35 units thereafter - bring in your blood glucose readings to the office in 2 weeks. increase the LOSARTAN from 50mg daily to 100mg daily - use the current 50mg supply by taking two pills daily until the new RX is delivered from right source. . Diabetes Mellitus - Uncontrolled - per recent FSBS reports. I have recommended for the patient to have follow up labs prior to the next office visit. The patient has been instructed to continue with current medications as previously directed, continue with regular FSBS monitoring to assure continued control of diabetes. Pt to call for any acute concerns, complaints, or if the blood glucose readings are starting to become less controlled. I have recommended for the patient to follow more strictly to the diabetic diet as discussed in clinic to allow for greater blood glucose control. increase of novolog from 8units AM and noon to 12 units AM and noon and increase of lantus from 25 units qhs to 30 units x 3 days, then 35 units thereafter Hypertension - uncontrolled - the patient's medications have been modified as documented in the visit note. The patient has been counseled to cut back on salt in diet for a no added salt diet, low fat diet, start an exercise program with low weight bearing exercises and higher aerobic activity for heart health. The patient is to check blood pressure readings as an outpatient and either fax, call, or email the readings to the office next week for practitioner to review. The pt is to call for acute concerns. increase losartan to 100mg daily . DM - medications unchanged today - pt was again without her glucose readings - recommended family to bring in her book. . Hypertension - well controlled - continue with current medications, continue with no added salt diet. Pt has been encouraged to exercise daily. The pt has been advised to call the office if there are any acute concerns about change in blood pressure readings at home. Diabetes Mellitus - controlled - per recent FSBS reports. I have recommended for the patient to have follow up labs prior to the next office visit. The patient has been instructed to continue with current medications as previously directed, continue with regular FSBS monitoring to assure continued control of diabetes. Pt to call for any acute concerns, complaints, or if the blood glucose readings are starting to become less controlled. Wound Instructions-AK nose- Pt was instructed to keep the wound clean, wash with antibacterial soap, use triple antibiotic ointment, call if redness, pustular drainage, or any other acute concerns. . Hypertension - well controlled - continue with current medications, continue with no added salt diet. Pt has been encouraged to exercise daily. The pt has been advised to call the office if there are any acute concerns about change in blood pressure readings at home. Diabetes Mellitus - controlled - per recent FSBS reports. I have recommended for the patient to have follow up labs prior to the next office visit. The patient has been instructed to continue with current medications as previously directed, continue with regular FSBS monitoring to assure continued control of diabetes. Pt to call for any acute concerns, complaints, or if the blood glucose readings are starting to become less controlled. Patient is testing blood sugars 4x daily due to wide fluctuations in blood sugars and history of hypoglycemic events requiring emergency intervention. Wound Instructions-AK nose- Pt was instructed to keep the wound clean, wash with antibacterial soap, use triple antibiotic ointment, call if redness, pustular drainage, or any other acute concerns. . Hypertension - uncontrolled - the patient's medications have been modified as documented in the visit note. The patient has been counseled to cut back on salt in diet for a no added salt diet, low fat diet, start an exercise program with low weight bearing exercises and higher aerobic activity for heart health. The patient is to check blood pressure readings as an outpatient and either fax, call, or email the readings to the office next week for practitioner to review. The pt is to call for acute concerns. Diabetes Mellitus - Uncontrolled - per recent FSBS reports. I have recommended for the patient to have follow up labs prior to the next office visit. The patient has been instructed to continue with current medications as previously directed, continue with regular FSBS monitoring to assure continued control of diabetes. Pt to call for any acute concerns, complaints, or if the blood glucose readings are starting to become less controlled. I have recommended for the patient to follow more strictly to the diabetic diet as discussed in clinic to allow for greater blood glucose control. Hypothyroidism - pt with chronic hypothyroidism, continue with current medication, will monitor pt to signs or symptoms of lack of adequate supplementation. Pt is to continue with current dose of medication unless directed otherwise. Check labs at regular intervals wither q 3 months or q 6 months based on previous levels of control. . Subarachnoid hemorrhage post fall -patient is not a surgical candidate -monitor symptoms UTI-recurrent -on antibiotics Gait instability-recommend walker Loose stools -start probiotic twice daily DO NOT TAKE NOVOLOG IF YOU DO NOT EAT BREAKFAST. . Diabetes Mellitus - I have recommended for the patient to have follow up labs prior to the next office visit. The patient has been instructed to continue with current medications as previously directed, continue with regular FSBS monitoring to assure continued control of diabetes. Pt to call for any acute concerns, complaints, or if the blood glucose readings are starting to become less controlled. HOLD MEALTIME INSULIN AT BREAKFAST TIME IF YOU AREN'T EATING BREAKFAST-ONLY TAKE IT IF YOU EAT BREAKFAST Hypertension - uncontrolled - BRING MONITOR TO NEXT APPT-FOLLOW UP IN [address] GARG. The patient has been counseled to cut back on salt in diet for a no added salt diet, low fat diet, start an exercise program with low weight bearing exercises and higher aerobic activity for heart health. The patient is to check blood pressure readings as an outpatient and either fax, call, or email the readings to the office next week for practitioner to review. The pt is to call for acute concerns. Mylanta for reflux symptoms- script sent with patient to be filled by [facility]i. . Diabetes Mellitus - controlled - per recent FSBS reports. I have recommended for the patient to have follow up labs prior to the next office visit. The patient has been instructed to continue with current medications as previously directed, continue with regular FSBS monitoring to assure continued control of diabetes. Pt to call for any acute concerns, complaints, or if the blood glucose readings are starting to become less controlled. GERD-mylanta prn for gi upset. check hgb a1c flonase nasal spray . Hypertension - well controlled - continue with current medications, continue with no added salt diet. Pt has been encouraged to exercise daily. The pt has been advised to call the office if there are any acute concerns about change in blood pressure readings at home. Diabetes Mellitus - controlled - per recent FSBS reports. I have recommended for the patient to have follow up labs prior to the next office visit. The patient has been instructed to continue with current medications as previously directed, continue with regular FSBS monitoring to assure continued control of diabetes. Pt to call for any acute concerns, complaints, or if the blood glucose readings are starting to become less controlled. CKD-patient sees forming department end finder-has decided not to do dialysis right now Allergies-rx for flonase . Diabetes Mellitus - controlled - per recent FSBS reports. PATIENT IS TESTING BLOOD SUGARS 4X/DAY DUE TO SLIDING SCALE INSULIN-blood sugar log reviewed to document 4x/day testing--see scanned document for readings-I have recommended for the patient to have follow up labs prior to the next office visit. The patient has been instructed to continue with current medications as previously directed, continue with regular FSBS monitoring to assure continued control of diabetes. Pt to call for any acute concerns, complaints, or if the blood glucose readings are starting to become less controlled. Hypertension - well controlled - continue with current medications, continue with no added salt diet. Pt has been encouraged to exercise daily. The pt has been advised to call the office if there are any acute concerns about change in blood pressure readings at home. Left thumb pain-RX voltaren gel . Diabetes Mellitus - controlled - per recent FSBS reports. I have recommended for the patient to have follow up labs prior to the next office visit. The patient has been instructed to continue with current medications as previously directed, continue with regular FSBS monitoring to assure continued control of diabetes. Pt to call for any acute concerns, complaints, or if the blood glucose readings are starting to become less controlled. Hypertension - well controlled - continue with current medications, continue with no added salt diet. Pt has been encouraged to exercise daily. The pt has been advised to call the office if there are any acute concerns about change in blood pressure readings at home. Left thumb pain-RX voltaren gel . Hypertension - well controlled - continue with current medications, continue with no added salt diet. Pt has been encouraged to exercise daily. The pt has been advised to call the office if there are any acute concerns about change in blood pressure readings at home. Diabetes Mellitus - I have recommended for the patient to have follow up labs prior to the next office visit. The patient has been instructed to continue with current medications as previously directed, continue with regular FSBS monitoring to assure continued control of diabetes. Pt to call for any acute concerns, complaints, or if the blood glucose readings are starting to become less controlled. 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 Hypertension - well controlled - continue with current medications, continue with no added salt diet. Pt has been encouraged to exercise daily. The pt has been advised to call the office if there are any acute concerns about change in blood pressure readings at home. Diabetes Mellitus - I have recommended for the patient to have follow up labs prior to the next office visit. The patient has been instructed to continue with current medications as previously directed, continue with regular FSBS monitoring to assure continued control of diabetes. Patient is insulin dependent and requires blood sugar testing 4x/day. Pt to call for any acute concerns, complaints, or if the blood glucose readings are starting to become less controlled. 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 Diabetes Mellitus - I have recommended for the patient to have follow up labs prior to the next office visit. The patient has been instructed to continue with current medications as previously directed, continue with regular FSBS monitoring to assure continued control of diabetes. Pt to call for any acute concerns, complaints, or if the blood glucose readings are starting to become less controlled. . Hypertension - well controlled - continue with current medications, continue with no added salt diet. Pt has been encouraged to exercise daily. The pt has been advised to call the office if there are any acute concerns about change in blood pressure readings at home. Diabetes Mellitus - I have recommended for the patient to have follow up labs prior to the next office visit. The patient has been instructed to continue with current medications as previously directed, continue with regular FSBS monitoring to assure continued control of diabetes. Pt to call for any acute concerns, complaints, or if the blood glucose readings are starting to become less controlled. I have recommended for the patient to follow more strictly to the diabetic diet as discussed in clinic to allow for greater blood glucose control. Hypothyroidism - pt with chronic hypothyroidism, continue with current medication, will monitor pt to signs or symptoms of lack of adequate supplementation. Pt is to continue with current dose of medication unless directed otherwise. Check labs at regular intervals wither q 3 months or q 6 months based on previous levels of control. Chronic renal disease stage 4-patient to make appt with [facility] Addendum: Patient has since moved to [facility] since this office visit. They are checking her blood sugars AC and HS and she is on a sliding scale to control her diabetes. will have [facility] fax over blood sugar log. . Hypertension - well controlled - continue with current medications, continue with no added salt diet. Pt has been encouraged to exercise daily. The pt has been advised to call the office if there are any acute concerns about change in blood pressure readings at home. Diabetes Mellitus - I have recommended for the patient to have follow up labs prior to the next office visit. The patient has been instructed to continue with current medications as previously directed, continue with regular FSBS monitoring to assure continued control of diabetes. Pt to call for any acute concerns, complaints, or if the blood glucose readings are starting to become less controlled. . Diabetes Mellitus - NOT WELL CONTROLLED-HAVING EPISODES OF HYPOGLYCEMIA-DISCUSSED WITH DR GARG AND MEDICATIONS ADJUSTED. I have recommended for the patient to have follow up labs prior to the next office visit. The patient has been instructed to continue with current medications as previously directed, continue with regular FSBS monitoring to assure continued control of diabetes. Pt to call for any acute concerns, complaints, or if the blood glucose readings are starting to become less controlled. Hypertension - well controlled - continue with current medications, continue with no added salt diet. Pt has been encouraged to exercise daily. The pt has been advised to call the office if there are any acute concerns about change in blood pressure readings at home. . Headaches -subarachnoid hemorrhage -patient was not a surgical candidate -continue to monitor CKD -anemia- family has chosen not to transfuse -continue with hospice care Right hip pain -no fracture -continue tramadol as needed for pain management stop the GLIMEPIRIDE make sure that you are checking the blood glucose readings 2-3 times daily - make sure to not have eaten at least within 2 hours of testing your blood glucose levels. increase the COREG to 1.5 pills twice daily. . Hypertension - uncontrolled - the patient's medications have been modified as documented in the visit note. The patient has been counseled to cut back on salt in diet for a no added salt diet, low fat diet, start an exercise program with low weight bearing exercises and higher aerobic activity for heart health. The patient is to check blood pressure readings as an outpatient and either fax, call, or email the readings to the office next week for practitioner to review. The pt is to call for acute concerns. Diabetes Mellitus - Uncontrolled - per recent FSBS reports. I have recommended for the patient to have follow up labs prior to the next office visit. The patient has been instructed to continue with current medications as previously directed, continue with regular FSBS monitoring to assure continued control of diabetes. Pt to call for any acute concerns, complaints, or if the blood glucose readings are starting to become less controlled. I have recommended for the patient to follow more strictly to the diabetic diet as discussed in clinic to allow for greater blood glucose control. actinic keratosis - recommended to treat at next office visit . Hypertension - well controlled - continue with current medications, continue with no added salt diet. Pt has been encouraged to exercise daily. The pt has been advised to call the office if there are any acute concerns about change in blood pressure readings at home. Diabetes Mellitus - improved control since she is at the assisted. I have recommended for the patient to have follow up labs prior to the next office visit. The patient has been instructed to continue with current medications as previously directed, continue with regular FSBS monitoring to assure continued control of diabetes. Pt to call for any acute concerns, complaints, or if the blood glucose readings are starting to become less controlled. Blister of heel - discussed with pt and her DTR - continued use of cushion on heel - avoid shoes until lesion heals, and keep pressure off of heals.
--- OUTSIDE RECORDS SUMMARY | 2019-02-16 17:36 | XMS REPORT | CCD ---
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 [employer] Name Role Phone PP Unavailable CCM Unavailable Summary Purpose Interface Exchange Insurance Providers Payer name Policy type / Coverage type Covered alliance party ID Effective Begin Date Effective End Date WPS Medicare Part B [id number] 2015 Unknown [facility] Assistance [id number] Unknown Family history Mother Diagnosis Age At Onset Anemia Unknown Stroke Unknown Arthritis Unknown Hypertension Unknown Father Diagnosis Age At Onset Cancer Unknown Social History Social History Element Codes Description Effective Dates Marital status Unknown 01/02/2015 Number of children Unknown 3 01/02/2015 Employment Unknown Retired 01/02/[address]: 9867476 Quit over 10 years ago 25 years ago 01/02/[address]: 468700648 Never drinks alcohol 01/02/2015 Allergies, Adverse Reactions, [...] Fill Instructions tramadol 50 mg tablet RxNorm: 853034 1 Tablet(s) PO TID as needed 01/06/2019 No Stop Date Active Coreg 6.25 mg tablet RxNorm: 030944 1.5 Tablet(s) PO BID 12/22/2018 05/20/2019 Active lorazepam 1 mg tablet RxNorm: 932307 1 Tablet(s) PO Q6 12/16/2018 01/14/2019 Inactive Levemir FlexTouch U-100 Insulin 100 unit/mL (3 mL) subcutaneous pen RxNorm: 378891 4 Unit(s) SQ daily 10/27/2018 No Stop Date Active risperidone 0.5 mg tablet RxNorm: 207642 1 Tablet(s) PO BID 10/07/2018 02/03/2019 Active losartan 50 mg tablet RxNorm: 604452 1 Tablet(s) PO daily give if 115/50 or greater 10/07/2018 10/01/2019 Active Novolog U-100 Insulin aspart 100 unit/mL subcutaneous solution RxNorm: 702609 5-10 Unit(s) SQ QID per sliding scale and 8 units daily at noon 10/07/2018 No Stop Date Active risperidone 0.25 mg tablet RxNorm: 510795 1 Tablet(s) PO BID 09/09/2018 10/06/2018 Inactive Risperdal 0.25 mg tablet RxNorm: 408123 1 Tablet(s) PO BID 09/09/2018 10/06/2018 Inactive Voltaren 1 % topical gel RxNorm: 504514 2 Gram(s) TOP QID 10/30/2017 No Stop Date Active Novolog 100 unit/mL subcutaneous solution RxNorm: 975741 5-10 Unit(s) SQ QID per sliding scale 07/03/2017 10/06/2018 Inactive Novolog 100 unit/mL subcutaneous solution RxNorm: 160732 8 Unit(s) SQ at noon 09/27/2016 No Stop Date Active Novolog Flexpen 100 unit/mL subcutaneous RxNorm: 7771518 8 Unit(s) SQ at noon 09/27/2016 09/27/2016 Inactive Novolog Flexpen 100 unit/mL subcutaneous RxNorm: 8780293 8 Unit(s) SQ at noon 09/27/2016 09/26/2016 Inactive Novolog 100 unit/mL subcutaneous solution RxNorm: 184519 9 Unit(s) SQ at noon 09/27/2016 09/26/2016 Inactive Lantus 100 unit/mL subcutaneous solution RxNorm: 322408 25 Unit(s) SQ QHS 09/19/2016 10/06/2018 Inactive Coreg 6.25 mg tablet RxNorm: 664569 2 Tablet(s) PO BID 07/08/2016 09/30/2017 Inactive Lantus Solostar 100 unit/mL (3 mL) subcutaneous insulin pen RxNorm: 609289 25 Unit(s) SQ QAM and 50 Units at bedtime 04/05/2016 05/07/2016 Inactive Synthroid 150 mcg tablet RxNorm: 136346 1 Tablet(s) PO daily 04/05/2016 07/02/2017 Inactive Lantus Solostar 100 unit/mL (3 mL) subcutaneous insulin pen RxNorm: 415010 20 Unit(s) SQ QAM and 45 Units at bedtime 01/03/2016 01/07/2016 Inactive Synthroid 125 mcg tablet RxNorm: 744196 1 Tablet(s) PO daily 12/20/2015 12/19/2015 Inactive Synthroid 125 mcg tablet RxNorm: 463763 1 Tablet(s) PO daily 12/20/2015 04/04/2016 Inactive Novolog Flexpen 100 unit/mL subcutaneous RxNorm: 1841431 15 Unit(s) SQ am and 15 units @ noon BID 11/15/2015 05/07/2016 Inactive Lantus Solostar 100 unit/mL (3 mL) subcutaneous insulin pen RxNorm: 897052 10 Unit(s) SQ QAM and 40 Units at bedtime 11/15/2015 11/19/2015 Inactive increased from 25u Coreg 6.25 mg tablet RxNorm: 947545 1.5 Tablet(s) PO BID 10/09/2015 07/07/2016 Inactive Lantus Solostar 100 unit/mL (3 mL) subcutaneous insulin pen RxNorm: 471477 35 Unit(s) SQ QHS 09/26/2015 11/14/2015 Inactive increased from 25u Novolog Flexpen 100 unit/mL subcutaneous RxNorm: 9700355 12 Unit(s) SQ am and 12 units @ noon BID 09/25/2015 11/14/2015 Inactive Lantus Solostar 100 unit/mL (3 mL) subcutaneous insulin pen RxNorm: 858094 35 Unit(s) SQ QHS 09/21/2015 09/25/2015 Inactive Novolog Flexpen 100 unit/mL subcutaneous RxNorm: 2169553 12 Unit(s) SQ am and 12 units @ noon BID - dr to increase based on glucose readings [id number] 10.4 09/21/2015 09/24/2015 Inactive losartan 100 mg tablet RxNorm: 775871 1 Tablet(s) PO daily 09/21/2015 09/14/2016 Inactive Lantus Solostar 100 unit/mL (3 mL) subcutaneous insulin pen RxNorm: 914115 25 Unit(s) SQ QHS 08/29/2015 09/20/2015 Inactive Novolog Flexpen 100 unit/mL subcutaneous RxNorm: 2626955 8 Unit(s) SQ am and noon BID 08/29/2015 09/20/2015 Inactive Lantus Solostar 100 unit/mL (3 mL) subcutaneous insulin pen RxNorm: 394428 25 Unit(s) SQ QHS 08/25/2015 08/28/2015 Inactive losartan 50 mg tablet RxNorm: 528471 1 Tablet(s) PO daily 08/22/2015 09/20/2015 Inactive levothyroxine 125 mcg tablet RxNorm: 854820 1 Tablet(s) PO daily 01/23/2015 04/22/2015 Inactive Plavix 75 mg tablet RxNorm: 756599 1 Tablet(s) PO daily 01/02/2015 09/22/2016 Inactive Aranesp 25 mcg/mL (in polysorbate) Injection RxNorm: 505059 Milliliter(s) Inj 30mcg q 2 weeks 01/02/2015 05/08/2016 Inactive [SAVINGS FOR NON-COVERED DRUGS -- BIN:[id number], PCN: [id number], Group: [id number], ID# [id number], Questions: . THIS IS NOT INSURANCE.] aspirin 81 mg chewable tablet RxNorm: 966599 1 Tablet(s) PO daily 01/02/2015 05/07/2016 Inactive Coreg 6.25 mg tablet RxNorm: 795347 1 Tablet(s) PO BID 01/02/2015 10/08/2015 Inactive cyanocobalamin (vit B-12) 1,000 mcg tablet RxNorm: 775909 1 Tablet(s) PO daily No Start Date Active Fish Oil 300 mg-1,000 mg capsule RxNorm: 555065 2 Capsule(s) PO daily No Start Date Active Crestor 40 mg tablet RxNorm: 528782 1 Tablet(s) PO daily No Start Date Active Multiple Vitamins tablet RxNorm: 1 Tablet(s) PO daily No Start Date Active ferrous sulfate 325 mg (65 mg iron) tablet RxNorm: 647411 1 Tablet(s) PO daily No Start Date Active Aranesp 40 mcg/mL (in polysorbate) Injection RxNorm: 520322 Inject 1 Milliliter(s) SQ Every 2 weeks No Start Date Active loratadine 10 mg tablet RxNorm: 120734 1 Tablet(s) PO daily No Start Date Active levothyroxine 100 mcg tablet RxNorm: 887062 1 Tablet(s) PO daily No Start Date Active aspirin 81 mg capsule,delayed release RxNorm: 818585 1 Capsule(s) PO daily No Start Date Active calcium carbonate 200 mg calcium (500 mg) chewable tablet RxNorm: 950803 1-2 Tablet(s) PO daily No Start Date Active Lasix 20 mg tablet RxNorm: 186454 1 Tablet(s) PO daily No Start Date Active lactulose 20 gram oral packet RxNorm: 6850556 30 packet PO BID No Start Date Active ferrous sulfate 325 mg (65 mg iron) tablet RxNorm: 752703 1 Tablet(s) PO daily No Start Date 05/07/2016 Inactive sodium bicarbonate 650 mg tablet RxNorm: 559340 1 Tablet(s) PO BID No Start Date 10/06/2018 Inactive Aranesp 25 mcg/mL (in polysorbate) Injection RxNorm: 316933 injection No Start Date 01/01/2015 Inactive Vitamin D3 2,000 unit tablet RxNorm: 044967 1 Tablet(s) PO daily No Start Date 10/06/2018 Inactive lovastatin 40 mg tablet RxNorm: 573251 1 Tablet(s) PO daily No Start Date 05/07/2016 Inactive Lipitor 40 mg tablet RxNorm: 271983 1 Tablet(s) PO QHS No Start Date 01/01/2015 Inactive amlodipine 2.5 mg tablet RxNorm: 150255 1 Tablet(s) PO BID No Start Date 12/16/2014 Inactive sodium bicarbonate 325 mg tablet RxNorm: 582312 1 Tablet(s) PO BID No Start Date 05/07/2016 Inactive levothyroxine 150 mcg tablet RxNorm: 191434 1 Tablet(s) PO daily No Start Date 01/22/2015 Inactive Lantus Solostar 100 unit/mL (3 mL) subcutaneous insulin pen RxNorm: 689709 20 Unit(s) SQ QHS No Start Date 08/24/2015 Inactive Vitamin B12 Oral RxNorm: oral No Start Date 10/06/2018 Inactive Lantus 100 unit/mL subcutaneous solution RxNorm: 505046 30 Unit(s) SQ QHS No Start Date 09/18/2016 Inactive Novolog 100 unit/mL subcutaneous solution RxNorm: 466650 10 Unit(s) SQ BID in the AM and at noon No Start Date 07/02/2017 Inactive aspirin 81 mg tablet RxNorm: 238075 1 Tablet(s) PO daily No Start Date 01/01/2015 Inactive Levemir FlexTouch U-100 Insulin 100 unit/mL (3 mL) subcutaneous pen RxNorm: 539344 25 Unit(s) SQ daily No Start Date 10/26/2018 Inactive Novolog Flexpen 100 unit/mL subcutaneous RxNorm: 7463865 8 Unit(s) SQ am and noon BID No Start Date 08/28/2015 Inactive glimepiride 4 mg tablet RxNorm: 758472 1 Tablet(s) PO daily No Start Date 10/08/2015 Inactive tramadol 50 mg tablet RxNorm: 641388 1 Tablet(s) PO TID as needed No Start Date 01/05/2019 Inactive Vitamin D3 2,000 unit capsule RxNorm: 799276 1 Capsule(s) PO daily No Start Date [...] Observation Code Item Item Code Result Date Random Urine Protein/Creatinine Ratio Zzi7919 U Prot 52.0 mg/dl 12/30/2018 Random Urine Protein/Creatinine Ratio Sgo7012 U CREAT 41.0 mg/dL 12/30/2018 Random Urine Protein/Creatinine Ratio Eus5218 R MTP/Creat Ratio 1.27 12/30/2018 Renal Dvn374 NA 143 mEq/L 12/30/2018 Renal Egb731 K 4.6 mEq/L 12/30/2018 Renal Swn187 CL 111 mEq/L 12/30/2018 Renal Kco023 CO2 23.0 mEq/L 12/30/2018 Renal Iih121 ANION GAP 14 12/30/2018 Renal Bmb855 Osmo 298 mOsmo 12/30/2018 Renal Lef269 GLUCOSE 42 mg/dL 12/30/2018 Renal Tco094 BUN 58 mg/dL 12/30/2018 Renal Siq871 Creat 2.5 mg/dL 12/30/2018 Renal Mlc335 eGFR 20 ml/min/1.73m2 12/30/2018 Renal Dzn372 B/C Ratio 23.4 Ratio 12/30/2018 Renal Pxe390 CALCIUM 7.8 mg/dL 12/30/2018 Renal Vlo857 PHOS 4.8 mg/dL 12/30/2018 Renal Gmq857 ALBUMIN 3.0 g/dL 12/30/2018 Uric Acid Ord77 [...] to follow 12/30/2018 Vitamin D 25 Oh Oom4544 VITAMIN D, 25 HYDROXY 46.45 ng/mL 12/30/2018 Parathyroid Hormone Hpu187 PTH 96.30 pg/ml 12/30/2018 Cbc With Differential [...] 29.2 pg 12/30/2018 Cbc With Differential Ord2 [place]% 13.5 % 12/30/2018 Cbc With Differential Ord2 [...] 1.53 K/ul 12/30/2018 Cbc With Differential Ord2 [place] ABS# 0.7 K/ul 12/30/2018 Cbc With Differential [...] 12/02/2018 Urinalysis Ord28 U-Yeast NEGATIVE 12/02/2018 Renal Uca127 NA 138 mEq/L 11/02/2018 Renal Zyw099 K 5.0 mEq/L 11/02/2018 Renal Aws799 CL 107 mEq/L 11/02/2018 Renal Yev158 CO2 21.0 mEq/L 11/02/2018 Renal Irw800 ANION GAP 15 11/02/2018 Renal Rrc972 Osmo 302 mOsmo 11/02/2018 Renal Lvf773 GLUCOSE 151 mg/dL 11/02/2018 Renal Chl032 BUN 79 mg/dL 11/02/2018 Renal Grb861 Creat 3.5 mg/dL 11/02/2018 Renal Urr776 eGFR 14 ml/min/1.73m2 11/02/2018 Renal Cnf605 B/C Ratio 22.9 Ratio 11/02/2018 Renal Rcq072 CALCIUM 8.1 mg/dL 11/02/2018 Renal Iqp064 PHOS 6.2 mg/dL 11/02/2018 Renal Shc375 ALBUMIN 3.4 g/dL 11/02/2018 Parathyroid Hormone Lqp306 PTH 145.00 pg/ml 11/02/2018 Random Urine Protein/Creatinine Ratio Duz8615 U Prot 42.0 mg/dl 11/02/2018 Random Urine Protein/Creatinine Ratio Euu7878 U CREAT 72.0 mg/dL 11/02/2018 Random Urine Protein/Creatinine Ratio Agx2278 R MTP/Creat Ratio 0.58 11/02/2018 Uric Acid [...] 34.3 % 11/02/2018 Cbc With Differential Ord2 [place]% 13.4 % 11/02/2018 Cbc With Differential Ord2 [...] 2.38 K/ul 11/02/2018 Cbc With Differential Ord2 [place] ABS# 0.9 K/ul 11/02/2018 Cbc With Differential Ord2 Eos ABS# 0.2 K/ul 11/02/2018 Cbc With Differential Ord2 Baso ABS# 0.0 K/ul 11/02/2018 Vitamin D 25 Oh Coy3221 VITAMIN D, 25 HYDROXY 53.24 ng/mL 11/02/2018 [...] 30.6 pg 09/16/2018 Cbc With Differential Ord2 [place]% 10.1 % 09/16/2018 Cbc With Differential Ord2 [...] 2.10 K/ul 09/16/2018 Cbc With Differential Ord2 [place] ABS# 0.5 K/ul 09/16/2018 Cbc With Differential [...] (3rd IS) 1.93 uIU/mL 08/24/2018 Free T4 Pvj684 FREE T4 1.05 ng/dL 08/24/2018 Urinalysis Ord28 [...] 29.7 pg 08/17/2018 Cbc With Differential Ord2 [place]% 9.8 % 08/17/2018 Cbc With Differential Ord2 [...] 2.14 K/ul 08/17/2018 Cbc With Differential Ord2 [place] ABS# 0.7 K/ul 08/17/2018 Cbc With Differential Ord2 Eos ABS# 0.2 K/ul 08/17/2018 Cbc With Differential Ord2 Baso ABS# 0.0 K/ul 08/17/2018 Comp Metabolic Ens470 NA 143 mEq/L 04/14/2018 Comp Metabolic Cmu559 K 4.6 mEq/L 04/14/2018 Comp Metabolic Glp780 CL 108 mEq/L 04/14/2018 Comp Metabolic Njx241 CO2 23.0 mEq/L 04/14/2018 Comp Metabolic Ptm923 ANION GAP 17 04/14/2018 Comp Metabolic Tus006 GLUCOSE 54 mg/dL 04/14/2018 Comp Metabolic Mjp591 Creat 2.7 mg/dL 04/14/2018 Comp Metabolic Tiz546 eGFR 18 ml/min/1.73m2 04/14/2018 Comp Metabolic Dcn906 BUN 45 mg/dL 04/14/2018 Comp Metabolic Wzi705 B/C Ratio 16.9 Ratio 04/14/2018 Comp Metabolic Seh969 CALCIUM 8.3 mg/dL 04/14/2018 Comp Metabolic Kkc752 ALK PHOS 113 U/L 04/14/2018 Comp Metabolic Tuy690 AST(SGOT) 31 U/L 04/14/2018 Comp Metabolic Mqy418 ALT(SGPT) 33 U/L 04/14/2018 Comp Metabolic Ufm168 BILI T 0.5 mg/dL 04/14/2018 Comp Metabolic Xrl172 ALBUMIN 3.6 g/dL 04/14/2018 Comp Metabolic Xts261 TPRO 6.5 g/dL 04/14/2018 Comp Metabolic Dbj063 GLOB 2.9 g/dL 04/14/2018 Comp Metabolic Ydy648 A/G Ratio 1.2 Ratio 04/14/2018 Comp Metabolic Mak749 Osmo 294 mOsmo 04/14/2018 Lipid Ord30 CHOL [...] Ord28 U-Com Culture to follow 01/21/2018 %Hba1C Rws379 % HbA1c 91622- 6 7.4 % 11/03/2017 %Hba1C Zwj600 Gluc Ave 166 mg/dL 11/03/2017 Urine Culture [...] 26.3 pg 09/20/2016 Cbc With Differential Ord2 [place]% 11.3 % 09/20/2016 Cbc With Differential Ord2 [...] 1.08 K/ul 09/20/2016 Cbc With Differential Ord2 [place] ABS# 0.5 K/ul 09/20/2016 Cbc With Differential Ord2 Eos ABS# 0.2 K/ul 09/20/2016 Cbc With Differential Ord2 Baso ABS# 0.1 K/ul 09/20/2016 Comp Metabolic Ptr009 NA 141 mEq/L 09/20/2016 Comp Metabolic Cet199 K 5.9 Result Verified By Repeat Analysis mEq/L 09/20/2016 Comp Metabolic Szx905 CL 110 mEq/L 09/20/2016 Comp Metabolic Pnj756 CO2 23.0 mEq/L 09/20/2016 Comp Metabolic Urz051 ANION GAP 14 09/20/2016 Comp Metabolic Opd823 GLUCOSE 101 mg/dL 09/20/2016 Comp Metabolic Niu271 Creat 2.2 mg/dL 09/20/2016 Comp Metabolic Yxg500 eGFR 23 ml/min/1.73m2 09/20/2016 Comp Metabolic Odh337 BUN 49 mg/dL 09/20/2016 Comp Metabolic Gir826 B/C Ratio 22.0 Ratio 09/20/2016 Comp Metabolic Doo268 CALCIUM 8.7 mg/dL 09/20/2016 Comp Metabolic Rfj396 ALK PHOS 142 U/L 09/20/2016 Comp Metabolic Gyh286 AST(SGOT) 26 U/L 09/20/2016 Comp Metabolic Fut961 ALT(SGPT) 27 U/L 09/20/2016 Comp Metabolic Hjj663 BILI T 0.3 mg/dL 09/20/2016 Comp Metabolic Ymx325 ALBUMIN 4.0 g/dL 09/20/2016 Comp Metabolic Bvt104 TPRO 7.6 g/dL 09/20/2016 Comp Metabolic Ysw383 GLOB 3.6 g/dL 09/20/2016 Comp Metabolic Nvq791 A/G Ratio 1.1 Ratio 09/20/2016 Comp Metabolic Qri452 Osmo 294 mOsmo 09/20/2016 %Hba1C Elg548 % HbA1c 03225- 6 6.7 % 09/20/2016 %Hba1C Ddh407 Gluc Ave 146 mg/dL 09/20/2016 Urinalysis Ord28 [...] hours from collection if refrigerated) 05/31/2016 %Hba1C Khg565 % HbA1c 18831- 6 13.5 % 03/28/2016 %Hba1C Ktx997 Gluc Ave 341 mg/dL 03/28/2016 Tsh Ord6 hTSH II 16.02 uIU/mL 03/28/2016 Comp Metabolic Zgb751 NA 133 mEq/L 03/28/2016 Comp Metabolic Xpg444 K 5.4 mEq/L 03/28/2016 Comp Metabolic Lxh255 CL 102 mEq/L 03/28/2016 Comp Metabolic Rfc692 CO2 22.0 mEq/L 03/28/2016 Comp Metabolic Vbu947 ANION GAP 14 03/28/2016 Comp Metabolic Bpv583 GLUCOSE 432 mg/dL 03/28/2016 Comp Metabolic Bwj309 Creat 1.9 mg/dL 03/28/2016 Comp Metabolic Rgl008 eGFR 27 ml/min/1.73m2 03/28/2016 Comp Metabolic Zfc249 BUN 38 mg/dL 03/28/2016 Comp Metabolic Eah449 B/C Ratio 19.6 Ratio 03/28/2016 Comp Metabolic Jsp152 CALCIUM 8.9 mg/dL 03/28/2016 Comp Metabolic Pfn050 ALK PHOS 84 U/L 03/28/2016 Comp Metabolic Qwt468 AST(SGOT) 9 U/L 03/28/2016 Comp Metabolic Ysd693 ALT(SGPT) 6 U/L 03/28/2016 Comp Metabolic Xjj304 BILI T 0.4 mg/dL 03/28/2016 Comp Metabolic Vvc766 ALBUMIN 3.6 g/dL 03/28/2016 Comp Metabolic Ydm459 TPRO 6.8 g/dL 03/28/2016 Comp Metabolic Ybb523 GLOB 3.2 g/dL 03/28/2016 Comp Metabolic Qiq753 A/G Ratio 1.1 Ratio 03/28/2016 Comp Metabolic Dyl723 Osmo 294 mOsmo 03/28/2016 Free T4 Bdi680 FREE T4 0.72 ng/dL 03/28/2016 Comp Metabolic Vmf688 NA 132 mEq/L 12/22/2015 Comp Metabolic Ltv132 K 4.6 mEq/L 12/22/2015 Comp Metabolic Uqa233 CL 97 mEq/L 12/22/2015 Comp Metabolic Erq933 CO2 24.0 mEq/L 12/22/2015 Comp Metabolic Agg316 ANION GAP 16 12/22/2015 Comp Metabolic Zov278 GLUCOSE 354 mg/dL 12/22/2015 Comp Metabolic Wbs160 Creat 1.8 mg/dL 12/22/2015 Comp Metabolic Com925 eGFR 29 ml/min/1.73m2 12/22/2015 Comp Metabolic Ptj654 BUN 47 mg/dL 12/22/2015 Comp Metabolic Mms063 B/C Ratio 26.3 Ratio 12/22/2015 Comp Metabolic Gjk000 CALCIUM 9.5 mg/dL 12/22/2015 Comp Metabolic Jix717 ALK PHOS 100 U/L 12/22/2015 Comp Metabolic Oha123 AST(SGOT) 15 U/L 12/22/2015 Comp Metabolic Pui007 ALT(SGPT) 11 U/L 12/22/2015 Comp Metabolic Xkz602 BILI T 0.4 mg/dL 12/22/2015 Comp Metabolic Mqa733 ALBUMIN 3.7 g/dL 12/22/2015 Comp Metabolic Kdf760 TPRO 7.1 g/dL 12/22/2015 Comp Metabolic Tbx535 GLOB 3.4 g/dL 12/22/2015 Comp Metabolic Wcm069 A/G Ratio 1.1 Ratio 12/22/2015 Comp Metabolic Sup424 Osmo 291 mOsmo 12/22/2015 Microalbumin Moz276 MicroAlb 25.4 mg/dL 12/22/2015 Random Urine Protein/Creatinine Ratio Oqf2497 U Prot 63.3 mg/dl 12/22/2015 Random Urine Protein/Creatinine Ratio Eso7000 U CREAT 83.0 mg/dL 12/22/2015 Random Urine Protein/Creatinine Ratio Dbo6990 R MTP/Creat Ratio 0.76 12/22/2015 %Hba1C Gbq544 % HbA1c 99240- 6 11.9 % 12/21/2015 %Hba1C Vyr944 Gluc Ave 295 mg/dL 12/21/2015 Review of [...] distress 08/26/2018 None Full Exam - General 1994 Constitutional general appearance Overall: well developed 08/26/2018 None Full Exam - General 1994 Constitutional general appearance Overall: well nourished 08/26/2018 None Full Exam - General 1994 Eyes conjunctiva/eyelids Overall: eyelids normal 08/26/2018 None Full Exam - General 1994 Eyes conjunctiva/eyelids Overall: cornea clear 08/26/2018 None Full Exam - General 1994 Eyes conjunctiva/eyelids Overall: conjunctiva clear 08/26/2018 None [...] General 1994 Eyes conjunctiva/eyelids Overall: cornea clear 09/19/2016 None Full Exam - General 1994 Eyes pupils and irises Overall: pupils equal, round, reactive to light and accomodation 09/19/2016 None Full Exam - General 1994 Ears/Nose/Throat otoscopic exam External auditory canal: partial cerumen occlusion 09/19/2016 None Full Exam - General 1994 Ears/Nose/Throat lips/teeth/gingiva Overall: benign lips 09/19/2016 None [...] Procedure Codes Date DESTRUCT PREMALG LESION CPT-4: 69973 10/07/2016 Vital Signs Date Vital 01/25/2019 Blood Pressure 1: 140/80 Code: 8480-6 BMI: 27.1 Code: 56362-8 Heart Rate 1: 70 bpm Height: 5'3" SpO2: 93% Weight: 153 lbs 12/25/2018 Blood Pressure 1: 128/60 Code: 8480-6 BMI: 28.7 Code: 23697-1 Heart Rate 1: 68 bpm Height: 5'3" SpO2: 97% Weight: 162 lbs 10/27/2018 Blood Pressure 1: 128/68 Code: 8480-6 BMI: 27.6 Code: 13687-2 Heart Rate 1: 70 bpm Height: 5'3" SpO2: 94% Weight: 156 lbs 08/26/2018 Blood Pressure 1: 146/52 Code: 8480-6 BMI: 28.0 Code: 59851-0 Heart Rate 1: 68 bpm Height: 5'3" SpO2: 98% Weight: 158 lbs 07/20/2018 Blood Pressure 1: 144/70 Code: 8480-6 BMI: 28.3 Code: 79974-4 Heart Rate 1: 82 bpm Height: 5'3" SpO2: 100% Weight: 160 lbs 03/05/2018 Blood Pressure 1: 144/66 Code: 8480-6 BMI: 28.7 Code: 02392-9 Heart Rate 1: 83 bpm Height: 5'3" SpO2: 99% Weight: 162 lbs 10/30/2017 Blood Pressure 1: 122/58 Code: 8480-6 BMI: 30.1 Code: 65771-5 Heart Rate 1: 78 bpm Height: 5'3" SpO2: 98% Weight: 170 lbs 07/03/2017 Blood Pressure 1: 148/78 Code: 8480-6 BMI: 29.8 Code: 53053-4 Heart Rate 1: 80 bpm Height: 5'3" SpO2: 99% Weight: 168 lbs 04/03/2017 Blood Pressure 1: 144/64 Code: 8480-6 BMI: 29.1 Code: 95525-7 Heart Rate 1: 78 bpm Height: 5'3" SpO2: 98% Weight: 164 lbs 12/31/2016 Blood Pressure 1: 138/70 Code: 8480-6 BMI: 30.3 Code: 99598-8 Heart Rate 1: 84 bpm Height: 5'3" SpO2: 90% Weight: 171 lbs 10/07/2016 Blood Pressure 1: 146/78 Code: 8480-6 BMI: 29.4 Code: 28615-0 Heart Rate 1: 73 bpm Height: 5'3" SpO2: 99% Weight: 166 lbs 09/19/2016 Blood Pressure 1: 168/76 Code: 8480-6 BMI: 29.2 Code: 62959-8 Heart Rate 1: 88 bpm Height: 5'3" SpO2: 98% Weight: 165 lbs 07/08/2016 Blood Pressure 1: 120/80 Code: 8480-6 BMI: 28.3 Code: 49354-6 Heart Rate 1: 80 bpm Height: 5'3" SpO2: 99% Weight: 160 lbs 05/08/2016 Blood Pressure 1: 138/70 Code: 8480-6 BMI: 26.9 Code: 09364-3 Heart Rate 1: 93 bpm Height: 5'3" SpO2: 98% Weight: 152 lbs 03/28/2016 Blood Pressure 1: 144/74 Code: 8480-6 BMI: 27.6 Code: 17060-5 Heart Rate 1: 85 bpm Height: 5'3" SpO2: 99% Weight: 156 lbs 01/22/2016 Blood Pressure 1: 140/82 Code: 8480-6 BMI: 28.9 Code: 41227-3 Heart Rate 1: 104 bpm Height: 5'3" SpO2: 94% Weight: 163 lbs 12/21/2015 Blood Pressure 1: 140/90 Code: 8480-6 BMI: 28.7 Code: 83572-9 Heart Rate 1: 99 bpm Height: 5'3" SpO2: 96% Weight: 162 lbs 11/06/2015 Blood Pressure 1: 110/60 Code: 8480-6 BMI: 29.8 Code: 75104-1 Heart Rate 1: 93 bpm Height: 5'3" SpO2: 98% Weight: 168 lbs 10/20/2015 Blood Pressure 1: 152/62 Code: 8480-6 BMI: 29.8 Code: 67372-2 Heart Rate 1: 86 bpm Height: 5'3" SpO2: 96% Weight: 168 lbs 10/09/2015 Blood Pressure 1: 152/60 Code: 8480-6 BMI: 30.2 Code: 92237-9 Heart Rate 1: 83 bpm Height: 5'3" SpO2: 98% Weight: 170 lbs 8 oz 09/21/2015 Blood Pressure 1: 160/74 Code: 8480-6 Blood Pressure 1: 168/72 Code: 8480-6 BMI: 29.8 Code: 91870-4 Heart Rate 1: 82 bpm Height: 5'3" SpO2: 99% Weight: 168 lbs 08/22/2015 Blood Pressure 1: 170/82 Code: 8480-6 Blood Pressure 1: 178/78 Code: 8480-6 BMI: 29.2 Code: 46141-0 Heart Rate 1: 85 bpm Height: 5'3" SpO2: 99% Weight: 165 lbs 04/07/2015 Blood Pressure 1: 140/68 Code: 8480-6 BMI: 29.9 Code: 86522-7 Heart Rate 1: 81 bpm Height: 5'3" SpO2: 99% Weight: 169 lbs 01/02/2015 Blood Pressure 1: 162/72 Code: 8480-6 BMI: 30.3 Code: 79374-6 Heart Rate 1: 88 bpm Height: 5'3" [...] glucose at home, see scanned readings 10/07/2016 [facility] diabetes mellitus Pertinent Findings Denies [...] data Encounters Encounter Performer Location Codes Date [id number]) [id number] EST. 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 PATIENT, LEVEL IV Diagnosis: Headache[ICD10: R51] Diagnosis: Traumatic subarachnoid hemorrhage without loss of consciousness, initial encounter[ICD10: S06.6X0A] Diagnosis: Urinary tract infection, site not specified[ICD10: N39.0] Diagnosis: Diarrhea, unspecified[ICD10: R19.7] Diagnosis: Unsteadiness on feet[ICD10: R26.81] Cordelia Garg MD, [facility] CPT-4: 28004 12/25/2018 [id number]) [id number] EST. PATIENT, LEVEL IV Diagnosis: Essential (primary) hypertension[ICD10: I10] Diagnosis: Type 2 diabetes mellitus with hyperglycemia[ICD10: E11.65] Diagnosis: Blister (nonthermal), right foot, initial encounter[ICD10: S90.821A] Riana Garg MD, [facility] CPT-4: 58726 10/27/2018 [id number] EST. PATIENT, LEVEL III Diagnosis: Dementia in other diseases classified elsewhere with behavioral disturbance[ICD10: F02.81] Cary Garg MD, [facility] CPT-4: 48977 08/26/2018 ([id number]) 19250 EST. PATIENT, LEVEL IV Diagnosis: Type 2 diabetes mellitus with other specified complication[ICD10: E11.69] Diagnosis: Essential (primary) hypertension[ICD10: I10] Diagnosis: Other allergic rhinitis[ICD10: J30.89] Diagnosis: Chronic kidney disease, stage 4 (severe)[ICD10: N18.4] Cordelia Garg MD, [facility] CPT-4: 65622 07/20/2018 ([id number]) [id number] EST. PATIENT, LEVEL III Diagnosis: Essential (primary) hypertension[ICD10: I10] Diagnosis: Type 2 diabetes mellitus with other specified complication[ICD10: E11.69] Cordelia Garg MD, [facility] CPT-4: 95244 03/05/2018 ([id number]) 81339 EST. PATIENT, LEVEL IV Diagnosis: Type 2 diabetes mellitus with hyperglycemia[ICD10: E11.65] Diagnosis: Hypothyroidism, unspecified[ICD10: E03.9] Diagnosis: Essential (primary) hypertension[ICD10: I10] Diagnosis: Chronic kidney disease, stage 4 (severe)[ICD10: N18.4] Cordelia Garg MD, [facility] CPT-4: 79387 10/30/2017 ([id number]) 81818 EST. PATIENT, LEVEL IV Diagnosis: Hypothyroidism, unspecified[ICD10: E03.9] Diagnosis: Type 2 diabetes mellitus with hyperglycemia[ICD10: E11.65] Diagnosis: Essential (primary) hypertension[ICD10: I10] Diagnosis: Chronic kidney disease, stage 4 (severe)[ICD10: N18.4] Cordelia Garg MD, [facility] CPT-4: 99381 07/03/2017 ([id number]) 62717 EST. PATIENT, LEVEL III Diagnosis: Type 2 diabetes mellitus with hyperglycemia[ICD10: E11.65] Diagnosis: Essential (primary) hypertension[ICD10: I10] Diagnosis: Chronic kidney disease, stage 4 (severe)[ICD10: N18.4] Cordelia Garg MD, [facility] CPT-4: 34515 04/03/2017 ([id number]) 60877 EST. PATIENT, LEVEL III Diagnosis: Type 2 diabetes mellitus with hyperglycemia[ICD10: E11.65] Cordelia Garg MD, [facility] CPT-4: 85177 12/31/2016 ([id number]) 77181 EST. PATIENT, LEVEL II Diagnosis: Type 2 diabetes mellitus with hyperglycemia[ICD10: E11.65] Diagnosis: Essential (primary) hypertension[ICD10: I10] Diagnosis: Actinic keratosis[ICD10: L57.0] Cordelia Garg MD, [facility] CPT-4: 48303 10/07/2016 ([id number]) 51946 EST. PATIENT, LEVEL IV Diagnosis: Type 2 diabetes mellitus with hyperglycemia[ICD10: E11.65] Diagnosis: Essential (primary) hypertension[ICD10: I10] Cordelia Garg MD, [facility] CPT-4: 28238 09/19/2016 ([id number]) 10796 EST. PATIENT, LEVEL III Diagnosis: Type 2 diabetes mellitus with hyperglycemia[ICD10: E11.65] Diagnosis: Gastro-esophageal reflux disease without esophagitis[ICD10: K21.9] Cordelia Garg MD, [facility] CPT-4: 15575 07/08/2016 ([id number]) 15316 EST. PATIENT, LEVEL III Diagnosis: Type 2 diabetes mellitus with hyperglycemia[ICD10: E11.65] Riana Garg MD, [facility] CPT-4: 16079 05/08/2016 ([id number]) 03787 EST. PATIENT, LEVEL IV Diagnosis: Essential (primary) hypertension[ICD10: I10] Diagnosis: Type 2 diabetes mellitus with hyperglycemia[ICD10: E11.65] Diagnosis: Hypothyroidism, unspecified[ICD10: E03.9] Diagnosis: Chronic kidney disease, stage 4 (severe)[ICD10: N18.4] Cordelia Garg MD, [facility] CPT-4: 88730 03/28/2016 ([id number]) 28760 EST. PATIENT, LEVEL III Diagnosis: Type 2 diabetes mellitus with hyperglycemia[ICD10: E11.65] Diagnosis: Essential (primary) hypertension[ICD10: I10] Cordelai Garg MD, [facility] CPT-4: 30923 01/22/2016 ([id number]) 31264 EST. PATIENT, LEVEL IV Diagnosis: Type 2 diabetes mellitus with hyperglycemia[ICD10: E11.65] Diagnosis: Hypothyroidism, unspecified[ICD10: E03.9] Diagnosis: Essential (primary) hypertension[ICD10: I10] Diagnosis: Chronic kidney disease, stage 4 (severe)[ICD10: N18.4] Riana Garg MD [facility] CPT-4: 41339 12/21/2015 ([id number]) 58211 EST. PATIENT, LEVEL III Diagnosis: Type 2 diabetes mellitus with hyperglycemia[ICD10: E11.65] Riana Garg MD [facility] CPT-4: 93144 11/06/2015 ([id number]) 93462 EST. PATIENT, LEVEL IV Diagnosis: Type 2 diabetes mellitus with hyperglycemia[ICD10: E11.65] Diagnosis: Essential (primary) hypertension[ICD10: I10] Cordelia Garg MD [facility] CPT-4: 18794 10/20/2015 ([id number]) 63888 EST. PATIENT, LEVEL IV Diagnosis: Type 2 diabetes mellitus with hyperglycemia[ICD10: E11.65] Diagnosis: Essential (primary) hypertension[ICD10: I10] Diagnosis: Actinic keratosis[ICD10: L57.0] Riana Garg MD [facility] CPT-4: 00702 10/09/2015 ([id number]) 76682 EST. PATIENT, LEVEL IV Diagnosis: Type 2 diabetes mellitus with hyperglycemia[ICD10: E11.65] Diagnosis: Essential (primary) hypertension[ICD10: I10] Riana Garg MD [facility] CPT-4: 92898 09/21/2015 ([id number]) 48083 EST. PATIENT, LEVEL IV Diagnosis: Type 2 diabetes mellitus with hyperglycemia[ICD10: E11.65] Diagnosis: Hypothyroidism, unspecified[ICD10: E03.9] Diagnosis: Essential (primary) hypertension[ICD10: I10] Riana Garg MD [facility] CPT-4: 47348 08/22/2015 ([id number]) 86180 EST. PATIENT, LEVEL IV Diagnosis: ESSENTIAL HYPERTENSION[ICD9: 401.9] Diagnosis: HYPERLIPIDEMIA[ICD9: 272.4] Diagnosis: DIABETES TYPE II[ICD9: 250.00] [facility] CPT-4: 60270 04/07/2015 ([id number]) OFFICE/OUTPATIENT VISIT NEW Diagnosis: ESSENTIAL HYPERTENSION[ICD9: 401.9] Diagnosis: Diabetes mellitus out of control[ICD9: 250.02] Diagnosis: HYPOTHYROIDISM[ICD9: 244.9] Diagnosis: HYPERLIPIDEMIA[ICD9: 272.4] [facility] CPT-4: 57332 01/02/2015 Plan of Care Planned Activity Notes Codes Status Date Visit Plan: Headaches -subarachnoid hemorrhage -patient was not a surgical candidate -continue to monitor CKD -anemia- family has chosen not to transfuse -continue with hospice care Right hip pain -no fracture -continue tramadol as needed for pain management 01/25/2019 Patient Education: Patient Medication Summary Completed 01/25/2019 Appointment: Cordelia Kumar WPtel: [address] [place] [address] (30 min) Complex 12/29/2018 Visit Plan: Subarachnoid hemorrhage post fall -patient is not a surgical candidate -monitor symptoms UTI-recurrent -on antibiotics Gait instability-recommend walker Loose stools -start probiotic twice daily 12/25/2018 Appointment: Cordelia Kumar WPtel: [address] [place], [place] [phone] (15 min) Moderate 12/25/2018 Patient Education: Patient [...] improved control since she is at the skilled nursing. I have recommended for the patient to [...] of heals. 10/27/2018 Appointment: Riana Garg WPtel: [phone] [facility] (15 min) Moderate 10/27/2018 Patient Education: Patient Medication Summary Completed 10/27/2018 Patient Education: Hypertension Completed 10/27/2018 Patient Education: Diabetes Completed 10/27/2018 Appointment: Riana Garg WPtel: [phone] [facility] (15 min) Moderate 10/14/2018 Patient Education: [...] for effectiveness. 08/26/2018 [phone] ([facility] min) Complex 08/26/2018 Patient Education: Patient [...] starting to become less controlled. CKD-patient sees staffing director-has decided not to do dialysis right now Allergies-rx for flonase 07/20/2018 Appointment: Cordelia Kumar WPtel: [phone] [phone] [place] [address] (15 min) Moderate 07/20/2018 Patient Education: Patient [...] controlled. 03/05/2018 Appointment: Cordelia Kumar WPtel: [phone] [phone] (30 min) Complex 03/05/2018 Patient Education: Patient [...] gel 10/30/2017 Appointment: Cordelia Kumar WPtel: [phone] [phone] (30 min) Complex 10/30/2017 Patient Education: Patient [...] starting to become less controlled. Left thumb ostp-ukdxahz-xrdewmiom voltaren gel if symptoms persist 07/03/2017 [facility]ment: [phone] (30 min) Complex 07/03/2017 Patient Education: Patient [...] to become less controlled. Chronic renal disease-sees staffing director and also sports complex attendant for management of anemia 04/03/2017 Visit Plan: [...] to become less controlled. Chronic renal disease-sees staffing director and also sports complex attendant for management of anemia 04/03/2017 Appointment: [phone] (30 min) Complex 04/03/2017 Patient Education: Patient [...] controlled. 12/31/2016 Appointment: [phone] (30 min) Complex 12/31/2016 Patient Education: Patient [...] acute concerns. 10/07/2016 Appointment: Cordelia Kumar WPtel: [phone] [phone] (30 min) Complex 10/07/2016 App[facility]ment: [phone] (30 min) Complex 10/07/2016 Patient Education: Patient [...] at home. 09/19/2016 Appointment: Cordelia Kumar WPtel: [phone] [phone] (30 min) Complex 09/19/2016 Patient Education: Patient [...] Summary Completed 07/08/2016 Appointment: Cordelia Kumar WPtel: [phone] [phone] (30 min) Complex 06/20/2016 Visit Plan: Diabetes [...] stage 4- patient to make appt with [facility] Addendum: Patient noncompliant with blood sugar logs-she has been instructed to test QID but only tests daily- she did not bring her log for review today.- Patient has since moved to [facility] since this office visit. They are checking [...] stage 4- patient to make appt with [facility] 03/28/2016 Visit Plan: Hypertension - [...] stage 4- patient to make appt with [facility] Addendum: Patient noncompliant with blood sugar logs-she has been instructed to test QID but only tests daily- she did not bring her log for review today.- Patient has since moved to [facility] and they are checking her blood sugars [...] stage 4- patient to make appt with [facility] Addendum: Patient has since moved to [facility] since this office visit. They are checking her blood sugars AC and HS and she is on a sliding scale to control her d iabetes. 03/28/2016 Patient Education: Patient Medication Summary Completed 03/28/2016 Appointment: Cordelia Kumar WPtel: [phone] [phone] [place] [address] (30 min) Complex 03/26/2016 Appointment: Cordelia Kumar WPtel: [phone] [phone] (30 min) Complex 02/20/2016 Visit Plan: Diabetes [...] blood pressure readings at home. 01/22/2016 Appointment: José Cordelia WPtel: [phone] [phone] (30 min) Complex 01/22/2016 Patient Education: Patient [...] pt has been seeing a group in [facility] - but would like to be seen in [place] to avoid excessive travel. 12/21/2015 Visit Plan: Hypertension - well controlled [...] based on previous levels of control. 12/21/2015 Patient Education: Patient Medication Summary Completed 12/21/2015 Appointment: Riana [facility]arg [facility]el[facility] (15 min) Moderate 12/18/2015 Visit Plan: [...] me dications. 04/07/2015 Appointment: R[facility]arg [phone] [facility] Follow up 04/07/2015 Patient Education: Patient [...] of control. 01/02/2015 Appointment: Riana Garg WPtel: [address] [place] [address] [place] ([place]) New Patient 01/02/2015 Patient Education: Patient Medication Summary Completed 01/02/2015 Patient Education: Hypertension Completed 01/02/2015 Instructions Comment increase novolog to 12 units with morning [...] concerns. increase losartan to 100mg daily . Hypertension - well controlled - continue [...] to become less controlled. Chronic renal disease-sees staffing director and also sports complex attendant for management of anemia . Hypertension - [...] to assure normal liver response to medications. . Diabetes Mellitus - Uncontrolled - per [...] previous levels of control. . Hypertension - uncontrolled - the patient's [...] improved control since she is at the skilled nursing. I have recommended for the patient to [...] heals, and keep pressure off of heals. . Subarachnoid hemorrhage post fall -patient is not a surgical candidate -monitor symptoms UTI-recurrent -on antibiotics Gait instability-recommend walker Loose stools -start probiotic twice daily BRING BLOOD SUGAR LOG IN 1 MONTH [...] readings at home. . Diabetes Mellitus - I have recommended [...] readings are starting to become less controlled. Mylanta for reflux symptoms- script sent with patient to be filled by [facility]. . Diabetes Mellitus - controlled - per [...] less controlled. GERD-mylanta prn for gi upset. . 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 The patient is on medication which appears to be controlling the worst of the symptoms. I have not recommended a change to the regimen at this time, but will continue to closely monitor the medications for effectiveness. . Hypertension - well controlled - continue [...] starting to become less controlled. Left thumb pviq-dkjuknc-uwhfmkuuv voltaren gel if symptoms persist . Hypertension [...] appt with [facility] Addendum: Patient noncompliant with blood sugar logs-she has been instructed to test QID but only tests daily-she did not bring her log for review today.- Patient has since moved to [facility] since this office visit. They are checking her blood sugars AC and HS and she is on a sliding scale to control her diabetes. stop the GLIMEPIRIDE make sure that you [...] to treat at next office visit . Diabetes Mellitus - Uncontrolled - per [...] blood glucose control. Finger cellulitis - improved. Next time you have an appt - please bring in your blood glucose log sheet Dr. Garg will send a referral today to the [facility] - they are located in the [facility] at [address] [facility] in [place] - phone number is [phone] . Hypertension - well controlled - continue [...] pt has been seeing a group in [facility] - but would like to be seen in [place] to avoid excessive travel. . Diabetes Mellitus - controlled - per [...] disease stage 4-patient to make appt with [facility] . Diabetes Mellitus - controlled - per [...] appt with [facility] Addendum: Patient noncompliant with blood sugar logs-she has been instructed to test QID but only tests daily-she did not bring her log for review today.- Patient has since moved to [facility] and they are checking her blood sugars AC and HS due to uncontrolled diabetes-she is on a sliding scale insulin which requires more frequent monitoring of blood sugars. DO NOT TAKE NOVOLOG IF YOU DO [...] pt is to call for acute concerns. Next time you have an appt - please bring in your blood glucose log sheet Dr. Garg will send a referral today to the [facility] - they are located in the [facility] at [address] [place] [address] in [place] - phone number is [phone] . Hypertension - well controlled - continue [...] based on previous levels of control. . Headaches -subarachnoid hemorrhage -patient was not a surgical candidate -continue to monitor CKD -anemia- family has chosen not to transfuse -continue with hospice care Right hip pain -no fracture -continue tramadol as needed for pain management check hgb a1c flonase nasal spray . [...] starting to become less controlled. CKD-patient sees staffing director-has decided not to do dialysis right now Allergies-rx for flonase . DM - medications unchanged today - [...] to become less controlled. Chronic renal disease-sees staffing director and also sports complex attendant for management of anemia . Hypertension - [...] group Addendum: Patient has since moved to [facility] since this office visit. They are checking her blood sugars AC and HS and she is on a sliding scale to control her diabetes. . Diabetes Mellitus - NOT WELL CONTROLLED-HAVING [...] change in blood pressure readings at home. will have [facility] fax over blood sugar log. . [...]
--- OUTSIDE RECORDS SUMMARY | 2019-02-16 17:50 | XMS REPORT | CCD ---
Author Author [facility] Organization [facility] Address [address] [place] [address] Phone Care Team Providers Care Home Management Supervisor Name Role Phone PP Unavailable CCM Unavailable Summary Purpose Interface Exchange Insurance Providers Payer name Policy type / Coverage type Covered republican ID Effective Begin Date Effective End Date WPS Medicare Part B [id number] 2015 Unknown [facility] Assistance [id number] Unknown Family history Mother Diagnosis Age At Onset Anemia Unknown Stroke Unknown Arthritis Unknown Hypertension Unknown Father Diagnosis Age At Onset Cancer Unknown Social History Social History Element Codes Description Effective Dates Marital status Unknown 01/02/2015 Number of children Unknown 3 01/02/2015 Employment Unknown Retired 01/02/[address]: 8694795 Quit over 10 years ago 25 years ago 01/02/[address]: 066498643 Never drinks alcohol 01/02/2015 Allergies, Adverse Reactions, [...] Fill Instructions tramadol 50 mg tablet RxNorm: 219638 1 Tablet(s) PO TID as needed 01/06/2019 No Stop Date Active Coreg 6.25 mg tablet RxNorm: 331655 1.5 Tablet(s) PO BID 12/22/2018 05/20/2019 Active lorazepam 1 mg tablet RxNorm: 638400 1 Tablet(s) PO Q6 12/16/2018 01/14/2019 Inactive Levemir FlexTouch U-100 Insulin 100 unit/mL (3 mL) subcutaneous pen RxNorm: 648545 4 Unit(s) SQ daily 10/27/2018 No Stop Date Active risperidone 0.5 mg tablet RxNorm: 523580 1 Tablet(s) PO BID 10/07/2018 02/03/2019 Active losartan 50 mg tablet RxNorm: 858278 1 Tablet(s) PO daily give if 115/50 or greater 10/07/2018 10/01/2019 Active Novolog U-100 Insulin aspart 100 unit/mL subcutaneous solution RxNorm: 248831 5-10 Unit(s) SQ QID per sliding scale and 8 units daily at noon 10/07/2018 No Stop Date Active risperidone 0.25 mg tablet RxNorm: 119442 1 Tablet(s) PO BID 09/09/2018 10/06/2018 Inactive Risperdal 0.25 mg tablet RxNorm: 021729 1 Tablet(s) PO BID 09/09/2018 10/06/2018 Inactive Voltaren 1 % topical gel RxNorm: 926792 2 Gram(s) TOP QID 10/30/2017 No Stop Date Active Novolog 100 unit/mL subcutaneous solution RxNorm: 862975 5-10 Unit(s) SQ QID per sliding scale 07/03/2017 10/06/2018 Inactive Novolog 100 unit/mL subcutaneous solution RxNorm: 334028 8 Unit(s) SQ at noon 09/27/2016 No Stop Date Active Novolog Flexpen 100 unit/mL subcutaneous RxNorm: 2915368 8 Unit(s) SQ at noon 09/27/2016 09/27/2016 Inactive Novolog Flexpen 100 unit/mL subcutaneous RxNorm: 6814200 8 Unit(s) SQ at noon 09/27/2016 09/26/2016 Inactive Novolog 100 unit/mL subcutaneous solution RxNorm: 732175 9 Unit(s) SQ at noon 09/27/2016 09/26/2016 Inactive Lantus 100 unit/mL subcutaneous solution RxNorm: 598405 25 Unit(s) SQ QHS 09/19/2016 10/06/2018 Inactive Coreg 6.25 mg tablet RxNorm: 297220 2 Tablet(s) PO BID 07/08/2016 09/30/2017 Inactive Lantus Solostar 100 unit/mL (3 mL) subcutaneous insulin pen RxNorm: 443880 25 Unit(s) SQ QAM and 50 Units at bedtime 04/05/2016 05/07/2016 Inactive Synthroid 150 mcg tablet RxNorm: 639946 1 Tablet(s) PO daily 04/05/2016 07/02/2017 Inactive Lantus Solostar 100 unit/mL (3 mL) subcutaneous insulin pen RxNorm: 594217 20 Unit(s) SQ QAM and 45 Units at bedtime 01/03/2016 01/07/2016 Inactive Synthroid 125 mcg tablet RxNorm: 319153 1 Tablet(s) PO daily 12/20/2015 12/19/2015 Inactive Synthroid 125 mcg tablet RxNorm: 405243 1 Tablet(s) PO daily 12/20/2015 04/04/2016 Inactive Novolog Flexpen 100 unit/mL subcutaneous RxNorm: 9949289 15 Unit(s) SQ am and 15 units @ noon BID 11/15/2015 05/07/2016 Inactive Lantus Solostar 100 unit/mL (3 mL) subcutaneous insulin pen RxNorm: 445092 10 Unit(s) SQ QAM and 40 Units at bedtime 11/15/2015 11/19/2015 Inactive increased from 25u Coreg 6.25 mg tablet RxNorm: 207454 1.5 Tablet(s) PO BID 10/09/2015 07/07/2016 Inactive Lantus Solostar 100 unit/mL (3 mL) subcutaneous insulin pen RxNorm: 591566 35 Unit(s) SQ QHS 09/26/2015 11/14/2015 Inactive increased from 25u Novolog Flexpen 100 unit/mL subcutaneous RxNorm: 5403376 12 Unit(s) SQ am and 12 units @ noon BID 09/25/2015 11/14/2015 Inactive Lantus Solostar 100 unit/mL (3 mL) subcutaneous insulin pen RxNorm: 190401 35 Unit(s) SQ QHS 09/21/2015 09/25/2015 Inactive Novolog Flexpen 100 unit/mL subcutaneous RxNorm: 0485533 12 Unit(s) SQ am and 12 units @ noon BID - dr to increase based on glucose readings [id number] 10.4 09/21/2015 09/24/2015 Inactive losartan 100 mg tablet RxNorm: 291126 1 Tablet(s) PO daily 09/21/2015 09/14/2016 Inactive Lantus Solostar 100 unit/mL (3 mL) subcutaneous insulin pen RxNorm: 584580 25 Unit(s) SQ QHS 08/29/2015 09/20/2015 Inactive Novolog Flexpen 100 unit/mL subcutaneous RxNorm: 9682865 8 Unit(s) SQ am and noon BID 08/29/2015 09/20/2015 Inactive Lantus Solostar 100 unit/mL (3 mL) subcutaneous insulin pen RxNorm: 770277 25 Unit(s) SQ QHS 08/25/2015 08/28/2015 Inactive losartan 50 mg tablet RxNorm: 319488 1 Tablet(s) PO daily 08/22/2015 09/20/2015 Inactive levothyroxine 125 mcg tablet RxNorm: 740736 1 Tablet(s) PO daily 01/23/2015 04/22/2015 Inactive Plavix 75 mg tablet RxNorm: 128527 1 Tablet(s) PO daily 01/02/2015 09/22/2016 Inactive Aranesp 25 mcg/mL (in polysorbate) Injection RxNorm: 049895 Milliliter(s) Inj 30mcg q 2 weeks 01/02/2015 05/08/2016 Inactive [SAVINGS FOR NON-COVERED DRUGS -- BIN:[id number], PCN: [id number], Group: [id number], ID# [id number], Questions: . THIS IS NOT INSURANCE.] aspirin 81 mg chewable tablet RxNorm: 830421 1 Tablet(s) PO daily 01/02/2015 05/07/2016 Inactive Coreg 6.25 mg tablet RxNorm: 476678 1 Tablet(s) PO BID 01/02/2015 10/08/2015 Inactive cyanocobalamin (vit B-12) 1,000 mcg tablet RxNorm: 093883 1 Tablet(s) PO daily No Start Date Active Fish Oil 300 mg-1,000 mg capsule RxNorm: 196097 2 Capsule(s) PO daily No Start Date Active Crestor 40 mg tablet RxNorm: 177341 1 Tablet(s) PO daily No Start Date Active Multiple Vitamins tablet RxNorm: 1 Tablet(s) PO daily No Start Date Active ferrous sulfate 325 mg (65 mg iron) tablet RxNorm: 458757 1 Tablet(s) PO daily No Start Date Active Aranesp 40 mcg/mL (in polysorbate) Injection RxNorm: 194066 Inject 1 Milliliter(s) SQ Every 2 weeks No Start Date Active loratadine 10 mg tablet RxNorm: 112777 1 Tablet(s) PO daily No Start Date Active levothyroxine 100 mcg tablet RxNorm: 563565 1 Tablet(s) PO daily No Start Date Active aspirin 81 mg capsule,delayed release RxNorm: 873403 1 Capsule(s) PO daily No Start Date Active calcium carbonate 200 mg calcium (500 mg) chewable tablet RxNorm: 727270 1-2 Tablet(s) PO daily No Start Date Active Lasix 20 mg tablet RxNorm: 161008 1 Tablet(s) PO daily No Start Date Active lactulose 20 gram oral packet RxNorm: 9063087 30 packet PO BID No Start Date Active ferrous sulfate 325 mg (65 mg iron) tablet RxNorm: 349973 1 Tablet(s) PO daily No Start Date 05/07/2016 Inactive sodium bicarbonate 650 mg tablet RxNorm: 121124 1 Tablet(s) PO BID No Start Date 10/06/2018 Inactive Aranesp 25 mcg/mL (in polysorbate) Injection RxNorm: 538852 injection No Start Date 01/01/2015 Inactive Vitamin D3 2,000 unit tablet RxNorm: 891453 1 Tablet(s) PO daily No Start Date 10/06/2018 Inactive lovastatin 40 mg tablet RxNorm: 250688 1 Tablet(s) PO daily No Start Date 05/07/2016 Inactive Lipitor 40 mg tablet RxNorm: 800999 1 Tablet(s) PO QHS No Start Date 01/01/2015 Inactive amlodipine 2.5 mg tablet RxNorm: 343785 1 Tablet(s) PO BID No Start Date 12/16/2014 Inactive sodium bicarbonate 325 mg tablet RxNorm: 072380 1 Tablet(s) PO BID No Start Date 05/07/2016 Inactive levothyroxine 150 mcg tablet RxNorm: 847579 1 Tablet(s) PO daily No Start Date 01/22/2015 Inactive Lantus Solostar 100 unit/mL (3 mL) subcutaneous insulin pen RxNorm: 326073 20 Unit(s) SQ QHS No Start Date 08/24/2015 Inactive Vitamin B12 Oral RxNorm: oral No Start Date 10/06/2018 Inactive Lantus 100 unit/mL subcutaneous solution RxNorm: 644242 30 Unit(s) SQ QHS No Start Date 09/18/2016 Inactive Novolog 100 unit/mL subcutaneous solution RxNorm: 365114 10 Unit(s) SQ BID in the AM and at noon No Start Date 07/02/2017 Inactive aspirin 81 mg tablet RxNorm: 853839 1 Tablet(s) PO daily No Start Date 01/01/2015 Inactive Levemir FlexTouch U-100 Insulin 100 unit/mL (3 mL) subcutaneous pen RxNorm: 574328 25 Unit(s) SQ daily No Start Date 10/26/2018 Inactive Novolog Flexpen 100 unit/mL subcutaneous RxNorm: 8432080 8 Unit(s) SQ am and noon BID No Start Date 08/28/2015 Inactive glimepiride 4 mg tablet RxNorm: 055220 1 Tablet(s) PO daily No Start Date 10/08/2015 Inactive tramadol 50 mg tablet RxNorm: 721504 1 Tablet(s) PO TID as needed No Start Date 01/05/2019 Inactive Vitamin D3 2,000 unit capsule RxNorm: 443562 1 Capsule(s) PO daily No Start Date [...] Code Result Date Random Urine Protein/Creatinine Ratio Uzy7073 U Prot 52.0 mg/dl 12/30/2018 Random Urine Protein/Creatinine Ratio Luw8208 U CREAT 41.0 mg/dL 12/30/2018 Random Urine Protein/Creatinine Ratio Qae1529 R MTP/Creat Ratio 1.27 12/30/2018 Renal Nzt501 NA 143 mEq/L 12/30/2018 Renal Bek885 K 4.6 mEq/L 12/30/2018 Renal Xfa223 CL 111 mEq/L 12/30/2018 Renal Vyy573 CO2 23.0 mEq/L 12/30/2018 Renal Icr889 ANION GAP 14 12/30/2018 Renal Mkx643 Osmo 298 mOsmo 12/30/2018 Renal Rco837 GLUCOSE 42 mg/dL 12/30/2018 Renal Ymj850 BUN 58 mg/dL 12/30/2018 Renal Vrv195 Creat 2.5 mg/dL 12/30/2018 Renal Ycm637 eGFR 20 ml/min/1.73m2 12/30/2018 Renal Ked223 B/C Ratio 23.4 Ratio 12/30/2018 Renal Rdn875 CALCIUM 7.8 mg/dL 12/30/2018 Renal Crz352 PHOS 4.8 mg/dL 12/30/2018 Renal Cpr650 ALBUMIN 3.0 g/dL 12/30/2018 Uric Acid Ord77 [...] to follow 12/30/2018 Vitamin D 25 Oh Cjr2118 VITAMIN D, 25 HYDROXY 46.45 ng/mL 12/30/2018 Parathyroid Hormone Hyt257 PTH 96.30 pg/ml 12/30/2018 Cbc With Differential [...] 29.2 pg 12/30/2018 Cbc With Differential Ord2 [place]% 13.5 % 12/30/2018 Cbc With Differential Ord2 [...] 1.53 K/ul 12/30/2018 Cbc With Differential Ord2 [place] ABS# 0.7 K/ul 12/30/2018 Cbc With Differential [...] 12/02/2018 Urinalysis Ord28 U-Yeast NEGATIVE 12/02/2018 Renal Bvk189 NA 138 mEq/L 11/02/2018 Renal Skv887 K 5.0 mEq/L 11/02/2018 Renal Mmx000 CL 107 mEq/L 11/02/2018 Renal Exw651 CO2 21.0 mEq/L 11/02/2018 Renal Vfw430 ANION GAP 15 11/02/2018 Renal Bnj935 Osmo 302 mOsmo 11/02/2018 Renal Zgh497 GLUCOSE 151 mg/dL 11/02/2018 Renal Jql711 BUN 79 mg/dL 11/02/2018 Renal Vec950 Creat 3.5 mg/dL 11/02/2018 Renal Bdz619 eGFR 14 ml/min/1.73m2 11/02/2018 Renal Jhc195 B/C Ratio 22.9 Ratio 11/02/2018 Renal Mpy892 CALCIUM 8.1 mg/dL 11/02/2018 Renal Tpd450 PHOS 6.2 mg/dL 11/02/2018 Renal Prw541 ALBUMIN 3.4 g/dL 11/02/2018 Parathyroid Hormone Qqq408 PTH 145.00 pg/ml 11/02/2018 Random Urine Protein/Creatinine Ratio Pwl8161 U Prot 42.0 mg/dl 11/02/2018 Random Urine Protein/Creatinine Ratio Oyk5959 U CREAT 72.0 mg/dL 11/02/2018 Random Urine Protein/Creatinine Ratio Zpe8555 R MTP/Creat Ratio 0.58 11/02/2018 Uric Acid [...] 34.3 % 11/02/2018 Cbc With Differential Ord2 [place]% 13.4 % 11/02/2018 Cbc With Differential Ord2 [...] 2.38 K/ul 11/02/2018 Cbc With Differential Ord2 [place] ABS# 0.9 K/ul 11/02/2018 Cbc With Differential Ord2 Eos ABS# 0.2 K/ul 11/02/2018 Cbc With Differential Ord2 Baso ABS# 0.0 K/ul 11/02/2018 Vitamin D 25 Oh Tac4931 VITAMIN D, 25 HYDROXY 53.24 ng/mL 11/02/2018 [...] 30.6 pg 09/16/2018 Cbc With Differential Ord2 [place]% 10.1 % 09/16/2018 Cbc With Differential Ord2 [...] 2.10 K/ul 09/16/2018 Cbc With Differential Ord2 [place] ABS# 0.5 K/ul 09/16/2018 Cbc With Differential [...] (3rd IS) 1.93 uIU/mL 08/24/2018 Free T4 Uac479 FREE T4 1.05 ng/dL 08/24/2018 Urinalysis Ord28 [...] 29.7 pg 08/17/2018 Cbc With Differential Ord2 [place]% 9.8 % 08/17/2018 Cbc With Differential Ord2 [...] 2.14 K/ul 08/17/2018 Cbc With Differential Ord2 [place] ABS# 0.7 K/ul 08/17/2018 Cbc With Differential Ord2 Eos ABS# 0.2 K/ul 08/17/2018 Cbc With Differential Ord2 Baso ABS# 0.0 K/ul 08/17/2018 Comp Metabolic Fmn165 NA 143 mEq/L 04/14/2018 Comp Metabolic Rhe210 K 4.6 mEq/L 04/14/2018 Comp Metabolic Csw972 CL 108 mEq/L 04/14/2018 Comp Metabolic Agn076 CO2 23.0 mEq/L 04/14/2018 Comp Metabolic Lkf925 ANION GAP 17 04/14/2018 Comp Metabolic Hsf147 GLUCOSE 54 mg/dL 04/14/2018 Comp Metabolic Yzj290 Creat 2.7 mg/dL 04/14/2018 Comp Metabolic Wuv621 eGFR 18 ml/min/1.73m2 04/14/2018 Comp Metabolic Daa413 BUN 45 mg/dL 04/14/2018 Comp Metabolic Ruz409 B/C Ratio 16.9 Ratio 04/14/2018 Comp Metabolic Hhr777 CALCIUM 8.3 mg/dL 04/14/2018 Comp Metabolic Hzt121 ALK PHOS 113 U/L 04/14/2018 Comp Metabolic Jui186 AST(SGOT) 31 U/L 04/14/2018 Comp Metabolic Kxu634 ALT(SGPT) 33 U/L 04/14/2018 Comp Metabolic Ojc435 BILI T 0.5 mg/dL 04/14/2018 Comp Metabolic Ctf171 ALBUMIN 3.6 g/dL 04/14/2018 Comp Metabolic Fec218 TPRO 6.5 g/dL 04/14/2018 Comp Metabolic Qkm023 GLOB 2.9 g/dL 04/14/2018 Comp Metabolic Hix272 A/G Ratio 1.2 Ratio 04/14/2018 Comp Metabolic Wte556 Osmo 294 mOsmo 04/14/2018 Lipid Ord30 CHOL [...] Ord28 U-Com Culture to follow 01/21/2018 %Hba1C Qxu027 % HbA1c 42696- 6 7.4 % 11/03/2017 %Hba1C Pxq568 Gluc Ave 166 mg/dL 11/03/2017 Urine Culture [...] 26.3 pg 09/20/2016 Cbc With Differential Ord2 [place]% 11.3 % 09/20/2016 Cbc With Differential Ord2 [...] 1.08 K/ul 09/20/2016 Cbc With Differential Ord2 [place] ABS# 0.5 K/ul 09/20/2016 Cbc With Differential Ord2 Eos ABS# 0.2 K/ul 09/20/2016 Cbc With Differential Ord2 Baso ABS# 0.1 K/ul 09/20/2016 Comp Metabolic Byh110 NA 141 mEq/L 09/20/2016 Comp Metabolic Khv422 K 5.9 Result Verified By Repeat Analysis mEq/L 09/20/2016 Comp Metabolic Cmo893 CL 110 mEq/L 09/20/2016 Comp Metabolic Yfp434 CO2 23.0 mEq/L 09/20/2016 Comp Metabolic Tud680 ANION GAP 14 09/20/2016 Comp Metabolic Hgl921 GLUCOSE 101 mg/dL 09/20/2016 Comp Metabolic Fmn746 Creat 2.2 mg/dL 09/20/2016 Comp Metabolic Gdn513 eGFR 23 ml/min/1.73m2 09/20/2016 Comp Metabolic Ons678 BUN 49 mg/dL 09/20/2016 Comp Metabolic Txi073 B/C Ratio 22.0 Ratio 09/20/2016 Comp Metabolic Jum438 CALCIUM 8.7 mg/dL 09/20/2016 Comp Metabolic Yyl963 ALK PHOS 142 U/L 09/20/2016 Comp Metabolic Smz789 AST(SGOT) 26 U/L 09/20/2016 Comp Metabolic Xad907 ALT(SGPT) 27 U/L 09/20/2016 Comp Metabolic Hgv753 BILI T 0.3 mg/dL 09/20/2016 Comp Metabolic Dmg481 ALBUMIN 4.0 g/dL 09/20/2016 Comp Metabolic Hjo615 TPRO 7.6 g/dL 09/20/2016 Comp Metabolic Oyi436 GLOB 3.6 g/dL 09/20/2016 Comp Metabolic Awj284 A/G Ratio 1.1 Ratio 09/20/2016 Comp Metabolic Ihk223 Osmo 294 mOsmo 09/20/2016 %Hba1C Icy090 % HbA1c 54820- 6 6.7 % 09/20/2016 %Hba1C Pwp258 Gluc Ave 146 mg/dL 09/20/2016 Urinalysis Ord28 [...] hours from collection if refrigerated) 05/31/2016 %Hba1C Fup209 % HbA1c 02674- 6 13.5 % 03/28/2016 %Hba1C Wyq298 Gluc Ave 341 mg/dL 03/28/2016 Tsh Ord6 hTSH II 16.02 uIU/mL 03/28/2016 Comp Metabolic Cyv125 NA 133 mEq/L 03/28/2016 Comp Metabolic Atx484 K 5.4 mEq/L 03/28/2016 Comp Metabolic Avz508 CL 102 mEq/L 03/28/2016 Comp Metabolic Kqg919 CO2 22.0 mEq/L 03/28/2016 Comp Metabolic Ozj461 ANION GAP 14 03/28/2016 Comp Metabolic Hik779 GLUCOSE 432 mg/dL 03/28/2016 Comp Metabolic Nea124 Creat 1.9 mg/dL 03/28/2016 Comp Metabolic Kca498 eGFR 27 ml/min/1.73m2 03/28/2016 Comp Metabolic Znn921 BUN 38 mg/dL 03/28/2016 Comp Metabolic Ggh009 B/C Ratio 19.6 Ratio 03/28/2016 Comp Metabolic Szx180 CALCIUM 8.9 mg/dL 03/28/2016 Comp Metabolic Bvw250 ALK PHOS 84 U/L 03/28/2016 Comp Metabolic Sjr769 AST(SGOT) 9 U/L 03/28/2016 Comp Metabolic Lne748 ALT(SGPT) 6 U/L 03/28/2016 Comp Metabolic Vlf284 BILI T 0.4 mg/dL 03/28/2016 Comp Metabolic Dcd795 ALBUMIN 3.6 g/dL 03/28/2016 Comp Metabolic Ggm944 TPRO 6.8 g/dL 03/28/2016 Comp Metabolic Nnq401 GLOB 3.2 g/dL 03/28/2016 Comp Metabolic Vco713 A/G Ratio 1.1 Ratio 03/28/2016 Comp Metabolic Ejp890 Osmo 294 mOsmo 03/28/2016 Free T4 Exl950 FREE T4 0.72 ng/dL 03/28/2016 Comp Metabolic Dsq269 NA 132 mEq/L 12/22/2015 Comp Metabolic Iuh995 K 4.6 mEq/L 12/22/2015 Comp Metabolic Ocn995 CL 97 mEq/L 12/22/2015 Comp Metabolic Ppi541 CO2 24.0 mEq/L 12/22/2015 Comp Metabolic Wyv897 ANION GAP 16 12/22/2015 Comp Metabolic Sfr238 GLUCOSE 354 mg/dL 12/22/2015 Comp Metabolic Iks914 Creat 1.8 mg/dL 12/22/2015 Comp Metabolic Pgd293 eGFR 29 ml/min/1.73m2 12/22/2015 Comp Metabolic Udl751 BUN 47 mg/dL 12/22/2015 Comp Metabolic Ejv753 B/C Ratio 26.3 Ratio 12/22/2015 Comp Metabolic Gxt378 CALCIUM 9.5 mg/dL 12/22/2015 Comp Metabolic Dbt610 ALK PHOS 100 U/L 12/22/2015 Comp Metabolic Cfc941 AST(SGOT) 15 U/L 12/22/2015 Comp Metabolic Niy642 ALT(SGPT) 11 U/L 12/22/2015 Comp Metabolic Bpk321 BILI T 0.4 mg/dL 12/22/2015 Comp Metabolic Lld020 ALBUMIN 3.7 g/dL 12/22/2015 Comp Metabolic Ttz037 TPRO 7.1 g/dL 12/22/2015 Comp Metabolic Bug088 GLOB 3.4 g/dL 12/22/2015 Comp Metabolic Bgi010 A/G Ratio 1.1 Ratio 12/22/2015 Comp Metabolic Bqy564 Osmo 291 mOsmo 12/22/2015 Microalbumin Sbb345 MicroAlb 25.4 mg/dL 12/22/2015 Random Urine Protein/Creatinine Ratio Ico3382 U Prot 63.3 mg/dl 12/22/2015 Random Urine Protein/Creatinine Ratio Jix5616 U CREAT 83.0 mg/dL 12/22/2015 Random Urine Protein/Creatinine Ratio Udb6036 R MTP/Creat Ratio 0.76 12/22/2015 %Hba1C Fjg062 % HbA1c 61492- 6 11.9 % 12/21/2015 %Hba1C Keo355 Gluc Ave 295 mg/dL 12/21/2015 Review of [...] Procedure Codes Date DESTRUCT PREMALG LESION CPT-4: 90519 10/07/2016 Vital Signs Date Vital 01/25/2019 Blood Pressure 1: 140/80 Code: 8480-6 BMI: 27.1 Code: 13206-1 Heart Rate 1: 70 bpm Height: 5'3" SpO2: 93% Weight: 153 lbs 12/25/2018 Blood Pressure 1: 128/60 Code: 8480-6 BMI: 28.7 Code: 82692-3 Heart Rate 1: 68 bpm Height: 5'3" SpO2: 97% Weight: 162 lbs 10/27/2018 Blood Pressure 1: 128/68 Code: 8480-6 BMI: 27.6 Code: 16032-8 Heart Rate 1: 70 bpm Height: 5'3" SpO2: 94% Weight: 156 lbs 08/26/2018 Blood Pressure 1: 146/52 Code: 8480-6 BMI: 28.0 Code: 22265-2 Heart Rate 1: 68 bpm Height: 5'3" SpO2: 98% Weight: 158 lbs 07/20/2018 Blood Pressure 1: 144/70 Code: 8480-6 BMI: 28.3 Code: 06761-9 Heart Rate 1: 82 bpm Height: 5'3" SpO2: 100% Weight: 160 lbs 03/05/2018 Blood Pressure 1: 144/66 Code: 8480-6 BMI: 28.7 Code: 86278-3 Heart Rate 1: 83 bpm Height: 5'3" SpO2: 99% Weight: 162 lbs 10/30/2017 Blood Pressure 1: 122/58 Code: 8480-6 BMI: 30.1 Code: 22410-2 Heart Rate 1: 78 bpm Height: 5'3" SpO2: 98% Weight: 170 lbs 07/03/2017 Blood Pressure 1: 148/78 Code: 8480-6 BMI: 29.8 Code: 76325-2 Heart Rate 1: 80 bpm Height: 5'3" SpO2: 99% Weight: 168 lbs 04/03/2017 Blood Pressure 1: 144/64 Code: 8480-6 BMI: 29.1 Code: 04698-5 Heart Rate 1: 78 bpm Height: 5'3" SpO2: 98% Weight: 164 lbs 12/31/2016 Blood Pressure 1: 138/70 Code: 8480-6 BMI: 30.3 Code: 65840-1 Heart Rate 1: 84 bpm Height: 5'3" SpO2: 90% Weight: 171 lbs 10/07/2016 Blood Pressure 1: 146/78 Code: 8480-6 BMI: 29.4 Code: 27064-3 Heart Rate 1: 73 bpm Height: 5'3" SpO2: 99% Weight: 166 lbs 09/19/2016 Blood Pressure 1: 168/76 Code: 8480-6 BMI: 29.2 Code: 74949-7 Heart Rate 1: 88 bpm Height: 5'3" SpO2: 98% Weight: 165 lbs 07/08/2016 Blood Pressure 1: 120/80 Code: 8480-6 BMI: 28.3 Code: 95457-7 Heart Rate 1: 80 bpm Height: 5'3" SpO2: 99% Weight: 160 lbs 05/08/2016 Blood Pressure 1: 138/70 Code: 8480-6 BMI: 26.9 Code: 49564-3 Heart Rate 1: 93 bpm Height: 5'3" SpO2: 98% Weight: 152 lbs 03/28/2016 Blood Pressure 1: 144/74 Code: 8480-6 BMI: 27.6 Code: 80716-5 Heart Rate 1: 85 bpm Height: 5'3" SpO2: 99% Weight: 156 lbs 01/22/2016 Blood Pressure 1: 140/82 Code: 8480-6 BMI: 28.9 Code: 52830-8 Heart Rate 1: 104 bpm Height: 5'3" SpO2: 94% Weight: 163 lbs 12/21/2015 Blood Pressure 1: 140/90 Code: 8480-6 BMI: 28.7 Code: 64841-4 Heart Rate 1: 99 bpm Height: 5'3" SpO2: 96% Weight: 162 lbs 11/06/2015 Blood Pressure 1: 110/60 Code: 8480-6 BMI: 29.8 Code: 69588-3 Heart Rate 1: 93 bpm Height: 5'3" SpO2: 98% Weight: 168 lbs 10/20/2015 Blood Pressure 1: 152/62 Code: 8480-6 BMI: 29.8 Code: 77249-4 Heart Rate 1: 86 bpm Height: 5'3" SpO2: 96% Weight: 168 lbs 10/09/2015 Blood Pressure 1: 152/60 Code: 8480-6 BMI: 30.2 Code: 36229-4 Heart Rate 1: 83 bpm Height: 5'3" SpO2: 98% Weight: 170 lbs 8 oz 09/21/2015 Blood Pressure 1: 160/74 Code: 8480-6 Blood Pressure 1: 168/72 Code: 8480-6 BMI: 29.8 Code: 52971-0 Heart Rate 1: 82 bpm Height: 5'3" SpO2: 99% Weight: 168 lbs 08/22/2015 Blood Pressure 1: 170/82 Code: 8480-6 Blood Pressure 1: 178/78 Code: 8480-6 BMI: 29.2 Code: 73009-6 Heart Rate 1: 85 bpm Height: 5'3" SpO2: 99% Weight: 165 lbs 04/07/2015 Blood Pressure 1: 140/68 Code: 8480-6 BMI: 29.9 Code: 96911-4 Heart Rate 1: 81 bpm Height: 5'3" SpO2: 99% Weight: 169 lbs 01/02/2015 Blood Pressure 1: 162/72 Code: 8480-6 BMI: 30.3 Code: 47023-3 Heart Rate 1: 88 bpm Height: 5'3" [...] glucose at home, see scanned readings 10/07/2016 [facility] diabetes mellitus Pertinent Findings Denies [...] data Encounters Encounter Performer Location Codes Date [id number]) [id number] EST. 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 PATIENT, LEVEL IV Diagnosis: Headache[ICD10: R51] Diagnosis: Traumatic subarachnoid hemorrhage without loss of consciousness, initial encounter[ICD10: S06.6X0A] Diagnosis: Urinary tract infection, site not specified[ICD10: N39.0] Diagnosis: Diarrhea, unspecified[ICD10: R19.7] Diagnosis: Unsteadiness on feet[ICD10: R26.81] Cordelia Garg MD, [facility] CPT-4: 12248 12/25/2018 [id number]) 04377 EST. PATIENT, LEVEL IV Diagnosis: Essential (primary) hypertension[ICD10: I10] Diagnosis: Type 2 diabetes mellitus with hyperglycemia[ICD10: E11.65] Diagnosis: Blister (nonthermal), right foot, initial encounter[ICD10: S90.821A] Riana Garg MD, [facility] CPT-4: 59509 10/27/2018 [id number] EST. 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 PATIENT, LEVEL IV Diagnosis: Type 2 diabetes mellitus with other specified complication[ICD10: E11.69] Diagnosis: Essential (primary) hypertension[ICD10: I10] Diagnosis: Other allergic rhinitis[ICD10: J30.89] Diagnosis: Chronic kidney disease, stage 4 (severe)[ICD10: N18.4] Cordelia Garg MD, [facility] CPT-4: 24091 07/20/2018 ([id number]) 62181 EST. PATIENT, LEVEL III Diagnosis: Essential (primary) hypertension[ICD10: I10] Diagnosis: Type 2 diabetes mellitus with other specified complication[ICD10: E11.69] Cordelia Garg MD, [facility] CPT-4: 10533 03/05/2018 ([id number]) 62534 EST. PATIENT, LEVEL IV Diagnosis: Type 2 diabetes mellitus with hyperglycemia[ICD10: E11.65] Diagnosis: Hypothyroidism, unspecified[ICD10: E03.9] Diagnosis: Essential (primary) hypertension[ICD10: I10] Diagnosis: Chronic kidney disease, stage 4 (severe)[ICD10: N18.4] Cordelia Garg MD, [facility] CPT-4: 14119 10/30/2017 ([id number]) 00905 EST. PATIENT, LEVEL IV Diagnosis: Hypothyroidism, unspecified[ICD10: E03.9] Diagnosis: Type 2 diabetes mellitus with hyperglycemia[ICD10: E11.65] Diagnosis: Essential (primary) hypertension[ICD10: I10] Diagnosis: Chronic kidney disease, stage 4 (severe)[ICD10: N18.4] Cordelia Garg MD, [facility] CPT-4: 36735 07/03/2017 ([id number]) [id number] EST. PATIENT, LEVEL III Diagnosis: Type 2 diabetes mellitus with hyperglycemia[ICD10: E11.65] Diagnosis: Essential (primary) hypertension[ICD10: I10] Diagnosis: Chronic kidney disease, stage 4 (severe)[ICD10: N18.4] Cordelia Garg MD, [facility] CPT-4: 73715 04/03/2017 ([id number]) 16928 EST. PATIENT, LEVEL III Diagnosis: Type 2 diabetes mellitus with hyperglycemia[ICD10: E11.65] Cordelia Garg MD, [facility] CPT-4: 97128 12/31/2016 ([id number]) [id number] EST. PATIENT, LEVEL II Diagnosis: Type 2 diabetes mellitus with hyperglycemia[ICD10: E11.65] Diagnosis: Essential (primary) hypertension[ICD10: I10] Diagnosis: Actinic keratosis[ICD10: L57.0] Cordelia Garg MD, [facility] CPT-4: 77926 10/07/2016 ([id number]) [id number] EST. PATIENT, LEVEL IV Diagnosis: Type 2 diabetes mellitus with hyperglycemia[ICD10: E11.65] Diagnosis: Essential (primary) hypertension[ICD10: I10] Cordelia Garg MD, [facility] CPT-4: 56436 09/19/2016 ([id number]) [id number] EST. PATIENT, LEVEL III Diagnosis: Type 2 diabetes mellitus with hyperglycemia[ICD10: E11.65] Diagnosis: Gastro-esophageal reflux disease without esophagitis[ICD10: K21.9] Cordelia Garg MD, [facility] CPT-4: 36511 07/08/2016 ([id number]) 19241 EST. PATIENT, LEVEL III Diagnosis: Type 2 diabetes mellitus with hyperglycemia[ICD10: E11.65] Riana Garg MD, [facility] CPT-4: 30727 05/08/2016 ([id number]) 61800 EST. PATIENT, LEVEL IV Diagnosis: Essential (primary) hypertension[ICD10: I10] Diagnosis: Type 2 diabetes mellitus with hyperglycemia[ICD10: E11.65] Diagnosis: Hypothyroidism, unspecified[ICD10: E03.9] Diagnosis: Chronic kidney disease, stage 4 (severe)[ICD10: N18.4] Cordelia Garg MD, [facility] CPT-4: 17756 03/28/2016 ([id number]) 83376 EST. PATIENT, LEVEL III Diagnosis: Type 2 diabetes mellitus with hyperglycemia[ICD10: E11.65] Diagnosis: Essential (primary) hypertension[ICD10: I10] Cordelia Garg MD, [facility] CPT-4: 92344 01/22/2016 ([id number]) 13235 EST. PATIENT, LEVEL IV Diagnosis: Type 2 diabetes mellitus with hyperglycemia[ICD10: E11.65] Diagnosis: Hypothyroidism, unspecified[ICD10: E03.9] Diagnosis: Essential (primary) hypertension[ICD10: I10] Diagnosis: Chronic kidney disease, stage 4 (severe)[ICD10: N18.4] Riana Garg MD [facility] CPT-4: 94419 12/21/2015 ([id number]) 06810 EST. PATIENT, LEVEL III Diagnosis: Type 2 diabetes mellitus with hyperglycemia[ICD10: E11.65] Riana Garg MD [facility] CPT-4: 29137 11/06/2015 ([id number]) 90634 EST. PATIENT, LEVEL IV Diagnosis: Type 2 diabetes mellitus with hyperglycemia[ICD10: E11.65] Diagnosis: Essential (primary) hypertension[ICD10: I10] Cordelia Garg MD [facility] CPT-4: 42636 10/20/2015 ([id number]) 19144 EST. PATIENT, LEVEL IV Diagnosis: Type 2 diabetes mellitus with hyperglycemia[ICD10: E11.65] Diagnosis: Essential (primary) hypertension[ICD10: I10] Diagnosis: Actinic keratosis[ICD10: L57.0] Riana Garg MD [facility] CPT-4: 29117 10/09/2015 ([id number]) 11135 EST. PATIENT, LEVEL IV Diagnosis: Type 2 diabetes mellitus with hyperglycemia[ICD10: E11.65] Diagnosis: Essential (primary) hypertension[ICD10: I10] Riana Garg MD [facility] CPT-4: 24649 09/21/2015 ([id number]) 30461 EST. PATIENT, LEVEL IV Diagnosis: Type 2 diabetes mellitus with hyperglycemia[ICD10: E11.65] Diagnosis: Hypothyroidism, unspecified[ICD10: E03.9] Diagnosis: Essential (primary) hypertension[ICD10: I10] Riana Garg MD [facility] CPT-4: 33503 08/22/2015 ([id number]) 02712 EST. PATIENT, LEVEL IV Diagnosis: ESSENTIAL HYPERTENSION[ICD9: 401.9] Diagnosis: HYPERLIPIDEMIA[ICD9: 272.4] Diagnosis: DIABETES TYPE II[ICD9: 250.00] [facility] CPT-4: 77924 04/07/2015 ([id number]) OFFICE/OUTPATIENT VISIT NEW Diagnosis: ESSENTIAL HYPERTENSION[ICD9: 401.9] Diagnosis: Diabetes mellitus out of control[ICD9: 250.02] Diagnosis: HYPOTHYROIDISM[ICD9: 244.9] Diagnosis: HYPERLIPIDEMIA[ICD9: 272.4] [facility] CPT-4: 01680 01/02/2015 Plan of Care Planned Activity Notes Codes Status Date Visit Plan: Headaches -subarachnoid hemorrhage -patient was not a surgical candidate -continue to monitor CKD -anemia- family has chosen not to transfuse -continue with hospice care Right hip pain -no fracture -continue tramadol as needed for pain management 01/25/2019 Patient Education: Patient Medication Summary Completed 01/25/2019 Appointment: Cordelia Kumar WPtel: [address] [place] [address] (30 min) Complex 12/29/2018 Visit Plan: Subarachnoid hemorrhage post fall -patient is not a surgical candidate -monitor symptoms UTI-recurrent -on antibiotics Gait instability-recommend walker Loose stools -start probiotic twice daily 12/25/2018 Appointment: Cordelia Kumar WPtel: [address] [place], [place] [phone] (15 min) Moderate 12/25/2018 Patient Education: Patient [...] [facility] I have recommended for the patient to [...] heals. 10/27/2018 Appointment: Riana Garg WPtel: [phone] [facility] (15 min) Moderate 10/27/2018 Patient Education: Patient Medication Summary Completed 10/27/2018 Patient Education: Hypertension Completed 10/27/2018 Patient Education: Diabetes Completed 10/27/2018 Appointment: Riana Garg WPtel: [phone] [facility] (15 min) Moderate 10/14/2018 Patient Education: Patient [...] for effectiveness. 08/26/2018 [facility]ment: [phone] (30 min) Complex 08/26/2018 Patient Education: Patient [...] starting to become less controlled. CKD-patient sees deckhand-has decided not to do dialysis right now Allergies-rx for flonase 07/20/2018 Appointment: Cordelia Kumar WPtel: [phone] [id number] [place] [address] (15 min) Moderate 07/20/2018 Patient Education: Patient [...] controlled. 03/05/2018 Appointment: Cordelia Kumar WPtel: [phone] [phone] (30 min) Complex 03/05/2018 Patient Education: Patient [...] gel 10/30/2017 Appointment: Cordelia Kumar WPtel: [phone] [phone] (30 min) Complex 10/30/2017 Patient Education: Patient [...] starting to become less controlled. Left thumb jvpp-yxubmpx-ixozhixas voltaren gel if symptoms persist 07/03/2017 Appointment: [phone] [phone] (30 min) Complex 07/03/2017 Patient Education: Patient [...] to become less controlled. 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 12/31/2016 Appointment: [phone] [phone] (30 min) Complex 12/31/2016 Patient Education: Patient [...] concerns. 10/07/2016 Appointment: Cordelia Kumar WPtel: [phone] [phone] (30 min) Complex 10/07/2016 Appointment: [phone] [phone] (30 min) Complex 10/07/2016 Patient Education: Patient [...] at home. 09/19/2016 Appointment: Cordelia Kumar WPtel: [phone] [phone] (30 min) Complex 09/19/2016 Patient Education: [...] Summary Completed 07/08/2016 Appointment: Cordelia Kumar WPtel: [phone] [phone] (30 min) Complex 06/20/2016 Visit Plan: Diabetes [...] stage 4- patient to make appt with [facility] Addendum: Patient noncompliant with blood sugar logs-she has been instructed to test QID but only tests daily- she did not bring her log for review today.- Patient has since moved to [facility] since this office visit. They are [...] stage 4- patient to make appt with [facility] 03/28/2016 Visit Plan: Hypertension - [...] stage 4- patient to make appt with [facility] Addendum: Patient noncompliant with blood sugar logs-she has been instructed to test QID but only tests daily- she did not bring her log for review today.- Patient has since moved to [facility] and they are checking her blood [...] stage 4- patient to make appt with [facility] Addendum: Patient has since moved to [facility] since this office visit. They are checking her blood sugars AC and HS and she is on a sliding scale to control her d iabetes. 03/28/2016 Patient Education: Patient Medication Summary Completed 03/28/2016 Appointment: Cordelia Kumar WPtel: [phone] [phone] [place] [address] (30 min) Complex 03/26/2016 Appointment: Cordelia Kumar WPtel: [phone] [phone] (30 min) Complex 02/20/2016 Visit Plan: Diabetes [...] at home. 01/22/2016 Appointment: José Cordelia WPtel: [phone] [phone] (30 min) Complex 01/22/2016 Patient Education: Patient [...] pt has been seeing a group in [facility] - but would like to be seen in [place] to avoid excessive travel. 12/21/2015 Visit Plan: [...] Summary Completed 12/21/2015 Appointment: Riana Garg WPtel: [facility] (15 min) Moderate 12/18/2015 Visit Plan: DM [...] dications. 04/07/2015 Appointment: Riana Garg WPtel: [phone] [facility] Follow up 04/07/2015 Patient Education: Patient Medication [...] of control. 01/02/2015 Appointment: Riana Garg WPtel: [address] [place] [id number] [place] ([place]) New Patient 01/02/2015 Patient Education: [...] to become less controlled. 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 Hypertension - [...] improved control [facility]. I have recommended for the patient to [...] starting to become less controlled. Left thumb xwws-utbwqpr-opkakpixr voltaren gel if symptoms persist . Hypertension [...] review today.- Patient has since moved to [facility] since this office visit. They are [...] will send a referral today to the [facility] - they are located in the [facility] at [address] [facility] in [place] - phone number is [phone] . Hypertension - well controlled - continue [...] pt has been seeing a group in [facility] - but would like to be seen in [place] to avoid excessive travel. . Diabetes Mellitus [...] disease stage 4-patient to make appt with [facility] . Diabetes Mellitus - controlled [...] review today.- Patient has since moved to [facility] and they are checking her blood [...] will send a referral today to the [facility] - they are located in the [facility] at [address] [place] [address] in [place] - phone number is [phone] . Hypertension - well controlled - continue [...] starting to become less controlled. CKD-patient sees deckhand-has decided not to do dialysis right now [...] to become less controlled. 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 Hypertension - [...] group Addendum: Patient has since moved to [facility] since this office visit. They are [...] blood pressure readings at home. will have [facility] fax over blood sugar log. [...]
--- OUTSIDE RECORDS SUMMARY | 2019-02-16 17:54 | XMS REPORT | CCD ---
Author Author Riana Garg Organization Riana Garg MD, [facility] Address [address] [place] [address] Phone Care Team Providers Care Rn Peritoneal Dialysis Name Role Phone PP Unavailable CCM Unavailable Summary Purpose Interface Exchange Insurance Providers Payer name Policy type / Coverage type Covered republican ID Effective Begin Date Effective End Date WPS Medicare Part B [id number] 2015 Unknown [facility] Assistance [id number] Unknown Family history Mother Diagnosis Age At Onset Anemia Unknown Stroke Unknown Arthritis Unknown Hypertension Unknown Father Diagnosis Age At Onset Cancer Unknown Social History Social History Element Codes Description Effective Dates Marital status Unknown 01/02/2015 Number of children Unknown 3 01/02/2015 Employment Unknown Retired 01/02/[address]: 8966460 Quit over 10 years ago 25 years ago 01/02/[address]: 120632915 Never drinks alcohol 01/02/2015 Allergies, Adverse Reactions, Alerts Substance Reaction Codes Entered Date Inactivated Date Status * NO KNOWN FOOD ALLERGIES Unknown 01/02/2015 No Inactive Date Active SULFA(SULFONAMIDE ANTIBIOTICS) Unknown 01/02/2015 No Inactive Date Active Past Medical History Illness Codes Condition Status Onset Date Resolved Date Diarrhea, unspecified ICD- 9: 787.91 ICD-10: R19.7 Active 12/25/2018 Unknown Headache ICD-9: 784.0 ICD-10: R51 Active 12/25/2018 Unknown Traumatic subarachnoid hemorrhage without [...] ICD-9: 250.02 ICD-10: E11.65 Active 07/07/2016 Unknown Anemia, unspecified ICD- 9: 285.9 ICD-10: D64.9 Active 09/18/2018 Unknown Dysuria ICD-9: 788.1 ICD-10: R30.0 Active 12/26/2015 Unknown Dementia in other diseases classified elsewhere with behavioral disturbance ICD-9: 294.8 ICD-10: F02.81 Active 08/26/2018 Unknown Other allergic rhinitis ICD-9: 477.8 ICD-10: [...] Problems Condition Codes Effective Dates Condition Status Diarrhea, unspecified ICD- 9: 787.91 ICD-10: R19.7 12/25/2018 Active Headache ICD-9: 784.0 ICD-10: R51 12/25/2018 Active Traumatic subarachnoid hemorrhage without loss [...] hyperglycemia ICD-9: 250.02 ICD-10: E11.65 07/07/2016 Active Anemia, unspecified ICD- 9: 285.9 ICD-10: D64.9 09/18/2018 Active Dysuria ICD-9: 788.1 ICD-10: R30.0 12/26/2015 Active Dementia in other diseases classified elsewhere with behavioral disturbance ICD-9: 294.8 ICD-10: F02.81 08/26/2018 Active Other allergic rhinitis ICD-9: 477.8 ICD-10: [...] Fill Instructions tramadol 50 mg tablet RxNorm: 328106 1 Tablet(s) PO TID as needed 01/06/2019 No Stop Date Active Coreg 6.25 mg tablet RxNorm: 706650 1.5 Tablet(s) PO BID 12/22/2018 05/20/2019 Active lorazepam 1 mg tablet RxNorm: 105139 1 Tablet(s) PO Q6 12/16/2018 01/14/2019 Active Levemir FlexTouch U-100 Insulin 100 unit/mL (3 mL) subcutaneous pen RxNorm: 135576 4 Unit(s) SQ daily 10/27/2018 No Stop Date Active risperidone 0.5 mg tablet RxNorm: 958024 1 Tablet(s) PO BID 10/07/2018 02/03/2019 Active losartan 50 mg tablet RxNorm: 661892 1 Tablet(s) PO daily give if 115/50 or greater 10/07/2018 10/01/2019 Active Novolog U-100 Insulin aspart 100 unit/mL subcutaneous solution RxNorm: 742060 5-10 Unit(s) SQ QID per sliding scale and 8 units daily at noon 10/07/2018 No Stop Date Active risperidone 0.25 mg tablet RxNorm: 546817 1 Tablet(s) PO BID 09/09/2018 10/06/2018 Inactive Risperdal 0.25 mg tablet RxNorm: 142859 1 Tablet(s) PO BID 09/09/2018 10/06/2018 Inactive Voltaren 1 % topical gel RxNorm: 894670 2 Gram(s) TOP QID 10/30/2017 No Stop Date Active Novolog 100 unit/mL subcutaneous solution RxNorm: 182205 5-10 Unit(s) SQ QID per sliding scale 07/03/2017 10/06/2018 Inactive Novolog 100 unit/mL subcutaneous solution RxNorm: 500209 8 Unit(s) SQ at noon 09/27/2016 No Stop Date Active Novolog Flexpen 100 unit/mL subcutaneous RxNorm: 0032018 8 Unit(s) SQ at noon 09/27/2016 09/27/2016 Inactive Novolog Flexpen 100 unit/mL subcutaneous RxNorm: 1252250 8 Unit(s) SQ at noon 09/27/2016 09/26/2016 Inactive Novolog 100 unit/mL subcutaneous solution RxNorm: 901354 9 Unit(s) SQ at noon 09/27/2016 09/26/2016 Inactive Lantus 100 unit/mL subcutaneous solution RxNorm: 120996 25 Unit(s) SQ QHS 09/19/2016 10/06/2018 Inactive Coreg 6.25 mg tablet RxNorm: 308797 2 Tablet(s) PO BID 07/08/2016 09/30/2017 Inactive Lantus Solostar 100 unit/mL (3 mL) subcutaneous insulin pen RxNorm: 391208 25 Unit(s) SQ QAM and 50 Units at bedtime 04/05/2016 05/07/2016 Inactive Synthroid 150 mcg tablet RxNorm: 650096 1 Tablet(s) PO daily 04/05/2016 07/02/2017 Inactive Lantus Solostar 100 unit/mL (3 mL) subcutaneous insulin pen RxNorm: 890857 20 Unit(s) SQ QAM and 45 Units at bedtime 01/03/2016 01/07/2016 Inactive Synthroid 125 mcg tablet RxNorm: 120241 1 Tablet(s) PO daily 12/20/2015 12/19/2015 Inactive Synthroid 125 mcg tablet RxNorm: 657171 1 Tablet(s) PO daily 12/20/2015 04/04/2016 Inactive Novolog Flexpen 100 unit/mL subcutaneous RxNorm: 6849259 15 Unit(s) SQ am and 15 units @ noon BID 11/15/2015 05/07/2016 Inactive Lantus Solostar 100 unit/mL (3 mL) subcutaneous insulin pen RxNorm: 260444 10 Unit(s) SQ QAM and 40 Units at bedtime 11/15/2015 11/19/2015 Inactive increased from 25u Coreg 6.25 mg tablet RxNorm: 505780 1.5 Tablet(s) PO BID 10/09/2015 07/07/2016 Inactive Lantus Solostar 100 unit/mL (3 mL) subcutaneous insulin pen RxNorm: 791513 35 Unit(s) SQ QHS 09/26/2015 11/14/2015 Inactive increased from 25u Novolog Flexpen 100 unit/mL subcutaneous RxNorm: 7571205 12 Unit(s) SQ am and 12 units @ noon BID 09/25/2015 11/14/2015 Inactive Lantus Solostar 100 unit/mL (3 mL) subcutaneous insulin pen RxNorm: 799112 35 Unit(s) SQ QHS 09/21/2015 09/25/2015 Inactive Novolog Flexpen 100 unit/mL subcutaneous RxNorm: 6177415 12 Unit(s) SQ am and 12 units @ noon BID - dr to increase based on glucose readings [id number] 10.4 09/21/2015 09/24/2015 Inactive losartan 100 mg tablet RxNorm: 847170 1 Tablet(s) PO daily 09/21/2015 09/14/2016 Inactive Lantus Solostar 100 unit/mL (3 mL) subcutaneous insulin pen RxNorm: 616388 25 Unit(s) SQ QHS 08/29/2015 09/20/2015 Inactive Novolog Flexpen 100 unit/mL subcutaneous RxNorm: 8880499 8 Unit(s) SQ am and noon BID 08/29/2015 09/20/2015 Inactive Lantus Solostar 100 unit/mL (3 mL) subcutaneous insulin pen RxNorm: 451535 25 Unit(s) SQ QHS 08/25/2015 08/28/2015 Inactive losartan 50 mg tablet RxNorm: 691488 1 Tablet(s) PO daily 08/22/2015 09/20/2015 Inactive levothyroxine 125 mcg tablet RxNorm: 525014 1 Tablet(s) PO daily 01/23/2015 04/22/2015 Inactive Plavix 75 mg tablet RxNorm: 765552 1 Tablet(s) PO daily 01/02/2015 09/22/2016 Inactive Aranesp 25 mcg/mL (in polysorbate) Injection RxNorm: 876534 Milliliter(s) Inj 30mcg q 2 weeks 01/02/2015 05/08/2016 Inactive [SAVINGS FOR NON-COVERED DRUGS -- BIN:[id number], PCN: [id number], Group: [id number], ID# [id number], Questions: . THIS IS NOT INSURANCE.] aspirin 81 mg chewable tablet RxNorm: 384750 1 Tablet(s) PO daily 01/02/2015 05/07/2016 Inactive Coreg 6.25 mg tablet RxNorm: 880294 1 Tablet(s) PO BID 01/02/2015 10/08/2015 Inactive cyanocobalamin (vit B-12) 1,000 mcg tablet RxNorm: 920168 1 Tablet(s) PO daily No Start Date Active Fish Oil 300 mg-1,000 mg capsule RxNorm: 557255 2 Capsule(s) PO daily No Start Date Active Crestor 40 mg tablet RxNorm: 635960 1 Tablet(s) PO daily No Start Date Active Multiple Vitamins tablet RxNorm: 1 Tablet(s) PO daily No Start Date Active ferrous sulfate 325 mg (65 mg iron) tablet RxNorm: 636881 1 Tablet(s) PO daily No Start Date Active Aranesp 40 mcg/mL (in polysorbate) Injection RxNorm: 761917 Inject 1 Milliliter(s) SQ Every 2 weeks No Start Date Active loratadine 10 mg tablet RxNorm: 699184 1 Tablet(s) PO daily No Start Date Active levothyroxine 100 mcg tablet RxNorm: 966269 1 Tablet(s) PO daily No Start Date Active aspirin 81 mg capsule,delayed release RxNorm: 086371 1 Capsule(s) PO daily No Start Date Active calcium carbonate 200 mg calcium (500 mg) chewable tablet RxNorm: 159855 1-2 Tablet(s) PO daily No Start Date Active Lasix 20 mg tablet RxNorm: 036487 1 Tablet(s) PO daily No Start Date Active lactulose 20 gram oral packet RxNorm: 2543378 30 packet PO BID No Start Date Active ferrous sulfate 325 mg (65 mg iron) tablet RxNorm: 410098 1 Tablet(s) PO daily No Start Date 05/07/2016 Inactive sodium bicarbonate 650 mg tablet RxNorm: 357061 1 Tablet(s) PO BID No Start Date 10/06/2018 Inactive Aranesp 25 mcg/mL (in polysorbate) Injection RxNorm: 475735 injection No Start Date 01/01/2015 Inactive Vitamin D3 2,000 unit tablet RxNorm: 780248 1 Tablet(s) PO daily No Start Date 10/06/2018 Inactive lovastatin 40 mg tablet RxNorm: 424227 1 Tablet(s) PO daily No Start Date 05/07/2016 Inactive Lipitor 40 mg tablet RxNorm: 805396 1 Tablet(s) PO QHS No Start Date 01/01/2015 Inactive amlodipine 2.5 mg tablet RxNorm: 592361 1 Tablet(s) PO BID No Start Date 12/16/2014 Inactive sodium bicarbonate 325 mg tablet RxNorm: 800747 1 Tablet(s) PO BID No Start Date 05/07/2016 Inactive levothyroxine 150 mcg tablet RxNorm: 730627 1 Tablet(s) PO daily No Start Date 01/22/2015 Inactive Lantus Solostar 100 unit/mL (3 mL) subcutaneous insulin pen RxNorm: 285319 20 Unit(s) SQ QHS No Start Date 08/24/2015 Inactive Vitamin B12 Oral RxNorm: oral No Start Date 10/06/2018 Inactive Lantus 100 unit/mL subcutaneous solution RxNorm: 103695 30 Unit(s) SQ QHS No Start Date 09/18/2016 Inactive Novolog 100 unit/mL subcutaneous solution RxNorm: 413938 10 Unit(s) SQ BID in the AM and at noon No Start Date 07/02/2017 Inactive aspirin 81 mg tablet RxNorm: 486653 1 Tablet(s) PO daily No Start Date 01/01/2015 Inactive Levemir FlexTouch U-100 Insulin 100 unit/mL (3 mL) subcutaneous pen RxNorm: 681858 25 Unit(s) SQ daily No Start Date 10/26/2018 Inactive Novolog Flexpen 100 unit/mL subcutaneous RxNorm: 1430853 8 Unit(s) SQ am and noon BID No Start Date 08/28/2015 Inactive glimepiride 4 mg tablet RxNorm: 574437 1 Tablet(s) PO daily No Start Date 10/08/2015 Inactive tramadol 50 mg tablet RxNorm: 944874 1 Tablet(s) PO TID as needed No Start Date 01/05/2019 Inactive Vitamin D3 2,000 unit capsule RxNorm: 925514 1 Capsule(s) PO daily No Start Date 05/08/2016 Inactive metoprolol tartrate 12.5 Tablet RxNorm: 1 Tablet(s) PO BID No Start Date 12/16/2014 Inactive Medication Administered No Medication Administered data Immunizations Vaccine Codes Date Status Influenza CVX: 141 06/06/2017 completed Assessments Condition Codes Effective Dates Diarrhea, unspecified ICD-10: R19.7 ICD-9: 787.91 12/25/2018 Headache ICD-10: R51 ICD-9: 784.0 12/25/2018 Unsteadiness on feet ICD-10: R26.81 ICD-9: [...] 09/18/2018 Dysuria ICD-10: R30.0 ICD-9: 788.1 09/11/2018 Dementia in other diseases classified elsewhere with behavioral disturbance ICD-10: F02.81 ICD-9: 294.8 08/26/2018 Other allergic rhinitis ICD-10: J30.89 ICD-9: 477.8 [...] Visit Reason For Visit Effective Dates Notes Hospital Follow Up 12/25/2018 blisters 10/27/2018 anxiety [...] Code Result Date Random Urine Protein/Creatinine Ratio Avw5633 U Prot 52.0 mg/dl 12/30/2018 Random Urine Protein/Creatinine Ratio Xeu4581 U CREAT 41.0 mg/dL 12/30/2018 Random Urine Protein/Creatinine Ratio Awm3225 R MTP/Creat Ratio 1.27 12/30/2018 Renal Ybp370 NA 143 mEq/L 12/30/2018 Renal Xtp167 K 4.6 mEq/L 12/30/2018 Renal Lkh028 CL 111 mEq/L 12/30/2018 Renal Hbh018 CO2 23.0 mEq/L 12/30/2018 Renal Slp107 ANION GAP 14 12/30/2018 Renal Guj710 Osmo 298 mOsmo 12/30/2018 Renal Ies189 GLUCOSE 42 mg/dL 12/30/2018 Renal Qgz754 BUN 58 mg/dL 12/30/2018 Renal Twr621 Creat 2.5 mg/dL 12/30/2018 Renal Srm156 eGFR 20 ml/min/1.73m2 12/30/2018 Renal Rwv968 B/C Ratio 23.4 Ratio 12/30/2018 Renal Zws948 CALCIUM 7.8 mg/dL 12/30/2018 Renal Mca340 PHOS 4.8 mg/dL 12/30/2018 Renal Hxf187 ALBUMIN 3.0 g/dL 12/30/2018 Uric Acid Ord77 [...] to follow 12/30/2018 Vitamin D 25 Oh Ugd1986 VITAMIN D, 25 HYDROXY 46.45 ng/mL 12/30/2018 Parathyroid Hormone Atk406 PTH 96.30 pg/ml 12/30/2018 Cbc With Differential [...] 29.2 pg 12/30/2018 Cbc With Differential Ord2 [place]% 13.5 % 12/30/2018 Cbc With Differential Ord2 [...] 1.53 K/ul 12/30/2018 Cbc With Differential Ord2 [place] ABS# 0.7 K/ul 12/30/2018 Cbc With Differential [...] 12/02/2018 Urinalysis Ord28 U-Yeast NEGATIVE 12/02/2018 Renal Zke978 NA 138 mEq/L 11/02/2018 Renal Lik568 K 5.0 mEq/L 11/02/2018 Renal Tvh105 CL 107 mEq/L 11/02/2018 Renal Slg870 CO2 21.0 mEq/L 11/02/2018 Renal Sio052 ANION GAP 15 11/02/2018 Renal Cme055 Osmo 302 mOsmo 11/02/2018 Renal Ipe666 GLUCOSE 151 mg/dL 11/02/2018 Renal Mfp767 BUN 79 mg/dL 11/02/2018 Renal Pak377 Creat 3.5 mg/dL 11/02/2018 Renal Deh736 eGFR 14 ml/min/1.73m2 11/02/2018 Renal Isv822 B/C Ratio 22.9 Ratio 11/02/2018 Renal Jlm603 CALCIUM 8.1 mg/dL 11/02/2018 Renal Fdj914 PHOS 6.2 mg/dL 11/02/2018 Renal Yzw072 ALBUMIN 3.4 g/dL 11/02/2018 Parathyroid Hormone Hlw836 PTH 145.00 pg/ml 11/02/2018 Random Urine Protein/Creatinine Ratio Vlv5385 U Prot 42.0 mg/dl 11/02/2018 Random Urine Protein/Creatinine Ratio Csq8964 U CREAT 72.0 mg/dL 11/02/2018 Random Urine Protein/Creatinine Ratio Hvv9424 R MTP/Creat Ratio 0.58 11/02/2018 Uric Acid [...] 34.3 % 11/02/2018 Cbc With Differential Ord2 [place]% 13.4 % 11/02/2018 Cbc With Differential Ord2 [...] 2.38 K/ul 11/02/2018 Cbc With Differential Ord2 [place] ABS# 0.9 K/ul 11/02/2018 Cbc With Differential Ord2 Eos ABS# 0.2 K/ul 11/02/2018 Cbc With Differential Ord2 Baso ABS# 0.0 K/ul 11/02/2018 Vitamin D 25 Oh Zcn5294 VITAMIN D, 25 HYDROXY 53.24 ng/mL 11/02/2018 [...] 30.6 pg 09/16/2018 Cbc With Differential Ord2 [place]% 10.1 % 09/16/2018 Cbc With Differential Ord2 [...] 2.10 K/ul 09/16/2018 Cbc With Differential Ord2 [place] ABS# 0.5 K/ul 09/16/2018 Cbc With Differential [...] (3rd IS) 1.93 uIU/mL 08/24/2018 Free T4 Pfs056 FREE T4 1.05 ng/dL 08/24/2018 Urinalysis Ord28 [...] 29.7 pg 08/17/2018 Cbc With Differential Ord2 [place]% 9.8 % 08/17/2018 Cbc With Differential Ord2 [...] 2.14 K/ul 08/17/2018 Cbc With Differential Ord2 [place] ABS# 0.7 K/ul 08/17/2018 Cbc With Differential Ord2 Eos ABS# 0.2 K/ul 08/17/2018 Cbc With Differential Ord2 Baso ABS# 0.0 K/ul 08/17/2018 Comp Metabolic Nrl192 NA 143 mEq/L 04/14/2018 Comp Metabolic Zpc853 K 4.6 mEq/L 04/14/2018 Comp Metabolic Quh944 CL 108 mEq/L 04/14/2018 Comp Metabolic Ezq540 CO2 23.0 mEq/L 04/14/2018 Comp Metabolic Jsz154 ANION GAP 17 04/14/2018 Comp Metabolic Qgd902 GLUCOSE 54 mg/dL 04/14/2018 Comp Metabolic Tqs543 Creat 2.7 mg/dL 04/14/2018 Comp Metabolic Qhv413 eGFR 18 ml/min/1.73m2 04/14/2018 Comp Metabolic Yhe370 BUN 45 mg/dL 04/14/2018 Comp Metabolic Erg446 B/C Ratio 16.9 Ratio 04/14/2018 Comp Metabolic Ecx104 CALCIUM 8.3 mg/dL 04/14/2018 Comp Metabolic Wlh672 ALK PHOS 113 U/L 04/14/2018 Comp Metabolic Fwp004 AST(SGOT) 31 U/L 04/14/2018 Comp Metabolic Say821 ALT(SGPT) 33 U/L 04/14/2018 Comp Metabolic Bgn852 BILI T 0.5 mg/dL 04/14/2018 Comp Metabolic Nnr904 ALBUMIN 3.6 g/dL 04/14/2018 Comp Metabolic Rri955 TPRO 6.5 g/dL 04/14/2018 Comp Metabolic Yet656 GLOB 2.9 g/dL 04/14/2018 Comp Metabolic Afx643 A/G Ratio 1.2 Ratio 04/14/2018 Comp Metabolic Iiu615 Osmo 294 mOsmo 04/14/2018 Lipid Ord30 CHOL [...] Ord28 U-Com Culture to follow 01/21/2018 %Hba1C Vip931 % HbA1c 86560- 6 7.4 % 11/03/2017 %Hba1C Ybt903 Gluc Ave 166 mg/dL 11/03/2017 Urine Culture [...] 26.3 pg 09/20/2016 Cbc With Differential Ord2 [place]% 11.3 % 09/20/2016 Cbc With Differential Ord2 [...] 1.08 K/ul 09/20/2016 Cbc With Differential Ord2 [place] ABS# 0.5 K/ul 09/20/2016 Cbc With Differential Ord2 Eos ABS# 0.2 K/ul 09/20/2016 Cbc With Differential Ord2 Baso ABS# 0.1 K/ul 09/20/2016 Comp Metabolic Noq364 NA 141 mEq/L 09/20/2016 Comp Metabolic Iem884 K 5.9 Result Verified By Repeat Analysis mEq/L 09/20/2016 Comp Metabolic Pkm247 CL 110 mEq/L 09/20/2016 Comp Metabolic Alj332 CO2 23.0 mEq/L 09/20/2016 Comp Metabolic Uyr447 ANION GAP 14 09/20/2016 Comp Metabolic Lab533 GLUCOSE 101 mg/dL 09/20/2016 Comp Metabolic Raf281 Creat 2.2 mg/dL 09/20/2016 Comp Metabolic Tfl060 eGFR 23 ml/min/1.73m2 09/20/2016 Comp Metabolic Msy057 BUN 49 mg/dL 09/20/2016 Comp Metabolic Gtl756 B/C Ratio 22.0 Ratio 09/20/2016 Comp Metabolic Fsx416 CALCIUM 8.7 mg/dL 09/20/2016 Comp Metabolic Hcs226 ALK PHOS 142 U/L 09/20/2016 Comp Metabolic Dfe478 AST(SGOT) 26 U/L 09/20/2016 Comp Metabolic Nyr024 ALT(SGPT) 27 U/L 09/20/2016 Comp Metabolic Uzt161 BILI T 0.3 mg/dL 09/20/2016 Comp Metabolic Ita173 ALBUMIN 4.0 g/dL 09/20/2016 Comp Metabolic Rlh857 TPRO 7.6 g/dL 09/20/2016 Comp Metabolic Nog237 GLOB 3.6 g/dL 09/20/2016 Comp Metabolic Pse990 A/G Ratio 1.1 Ratio 09/20/2016 Comp Metabolic Yew873 Osmo 294 mOsmo 09/20/2016 %Hba1C Adj677 % HbA1c 85085- 6 6.7 % 09/20/2016 %Hba1C Cvr443 Gluc Ave 146 mg/dL 09/20/2016 Urinalysis Ord28 [...] hours from collection if refrigerated) 05/31/2016 %Hba1C Tzt677 % HbA1c 45663- 6 13.5 % 03/28/2016 %Hba1C Sgm438 Gluc Ave 341 mg/dL 03/28/2016 Tsh Ord6 hTSH II 16.02 uIU/mL 03/28/2016 Comp Metabolic Hsb976 NA 133 mEq/L 03/28/2016 Comp Metabolic Esx605 K 5.4 mEq/L 03/28/2016 Comp Metabolic Eqr684 CL 102 mEq/L 03/28/2016 Comp Metabolic Knj153 CO2 22.0 mEq/L 03/28/2016 Comp Metabolic Efg901 ANION GAP 14 03/28/2016 Comp Metabolic Pkz525 GLUCOSE 432 mg/dL 03/28/2016 Comp Metabolic Qkl475 Creat 1.9 mg/dL 03/28/2016 Comp Metabolic Jvu172 eGFR 27 ml/min/1.73m2 03/28/2016 Comp Metabolic Vvn793 BUN 38 mg/dL 03/28/2016 Comp Metabolic Urb003 B/C Ratio 19.6 Ratio 03/28/2016 Comp Metabolic Wrg432 CALCIUM 8.9 mg/dL 03/28/2016 Comp Metabolic Bqr673 ALK PHOS 84 U/L 03/28/2016 Comp Metabolic Tka972 AST(SGOT) 9 U/L 03/28/2016 Comp Metabolic Fxb534 ALT(SGPT) 6 U/L 03/28/2016 Comp Metabolic Avf531 BILI T 0.4 mg/dL 03/28/2016 Comp Metabolic Dau686 ALBUMIN 3.6 g/dL 03/28/2016 Comp Metabolic Cfg610 TPRO 6.8 g/dL 03/28/2016 Comp Metabolic Igg739 GLOB 3.2 g/dL 03/28/2016 Comp Metabolic Qcq984 A/G Ratio 1.1 Ratio 03/28/2016 Comp Metabolic Aik277 Osmo 294 mOsmo 03/28/2016 Free T4 Tea435 FREE T4 0.72 ng/dL 03/28/2016 Comp Metabolic Tpt694 NA 132 mEq/L 12/22/2015 Comp Metabolic Ovf427 K 4.6 mEq/L 12/22/2015 Comp Metabolic Umo624 CL 97 mEq/L 12/22/2015 Comp Metabolic Xxl624 CO2 24.0 mEq/L 12/22/2015 Comp Metabolic Gck280 ANION GAP 16 12/22/2015 Comp Metabolic Ytq409 GLUCOSE 354 mg/dL 12/22/2015 Comp Metabolic Uif208 Creat 1.8 mg/dL 12/22/2015 Comp Metabolic Cts580 eGFR 29 ml/min/1.73m2 12/22/2015 Comp Metabolic Oqh359 BUN 47 mg/dL 12/22/2015 Comp Metabolic Bua317 B/C Ratio 26.3 Ratio 12/22/2015 Comp Metabolic Vpd253 CALCIUM 9.5 mg/dL 12/22/2015 Comp Metabolic Nvt222 ALK PHOS 100 U/L 12/22/2015 Comp Metabolic Xwx422 AST(SGOT) 15 U/L 12/22/2015 Comp Metabolic Jly444 ALT(SGPT) 11 U/L 12/22/2015 Comp Metabolic Ubz912 BILI T 0.4 mg/dL 12/22/2015 Comp Metabolic Kle791 ALBUMIN 3.7 g/dL 12/22/2015 Comp Metabolic Rje095 TPRO 7.1 g/dL 12/22/2015 Comp Metabolic Uxu585 GLOB 3.4 g/dL 12/22/2015 Comp Metabolic Utm204 A/G Ratio 1.1 Ratio 12/22/2015 Comp Metabolic Boz014 Osmo 291 mOsmo 12/22/2015 Microalbumin Ctg962 MicroAlb 25.4 mg/dL 12/22/2015 Random Urine Protein/Creatinine Ratio Nmk7544 U Prot 63.3 mg/dl 12/22/2015 Random Urine Protein/Creatinine Ratio Pcl3703 U CREAT 83.0 mg/dL 12/22/2015 Random Urine Protein/Creatinine Ratio Lxa2017 R MTP/Creat Ratio 0.76 12/22/2015 %Hba1C Ssr370 % HbA1c 65416- 6 11.9 % 12/21/2015 %Hba1C Asq976 Gluc Ave 295 mg/dL 12/21/2015 Review of Systems System Result Effective Dates Constitutional No recent illness 12/25/2018 Constitutional No [...] contact 10/27/2018 None Full Exam - General 1995 Psychiatric speech Overall: normal quality, no aphasia 10/27/2018 None Full Exam - General 1994 Integument inspection of skin Location: right foot 10/27/2018 dry blister of heel medially on right Full Exam - General 1995 Constitutional general appearance Overall: in no acute [...] lips 08/26/2018 None Full Exam - General 1995 Ears/Nose/Throat oral cavity/pharynx/larynx Overall: oral mucosa clear [...] developed 09/19/2016 None Full Exam - General 1995 Constitutional general appearance Development: appears stated age 0209/19/2016 None Full Exam - General 1994 Constitutional general appearance Overall: in no acute distress 09/19/2016 None Full Exam - General 1994 [...] Procedure Codes Date DESTRUCT PREMALG LESION CPT-4: 55841 10/07/2016 Vital Signs Date Vital 12/25/2018 Blood Pressure 1: 128/60 Code: 8480-6 BMI: 28.7 Code: 45109-5 Heart Rate 1: 68 bpm Height: 5'3" SpO2: 97% Weight: 162 lbs 10/27/2018 Blood Pressure 1: 128/68 Code: 8480-6 BMI: 27.6 Code: 62748-5 Heart Rate 1: 70 bpm Height: 5'3" SpO2: 94% Weight: 156 lbs 08/26/2018 Blood Pressure 1: 146/52 Code: 8480-6 BMI: 28.0 Code: 00382-3 Heart Rate 1: 68 bpm Height: 5'3" SpO2: 98% Weight: 158 lbs 07/20/2018 Blood Pressure 1: 144/70 Code: 8480-6 BMI: 28.3 Code: 16428-4 Heart Rate 1: 82 bpm Height: 5'3" SpO2: 100% Weight: 160 lbs 03/05/2018 Blood Pressure 1: 144/66 Code: 8480-6 BMI: 28.7 Code: 07531-6 Heart Rate 1: 83 bpm Height: 5'3" SpO2: 99% Weight: 162 lbs 10/30/2017 Blood Pressure 1: 122/58 Code: 8480-6 BMI: 30.1 Code: 39861-6 Heart Rate 1: 78 bpm Height: 5'3" SpO2: 98% Weight: 170 lbs 07/03/2017 Blood Pressure 1: 148/78 Code: 8480-6 BMI: 29.8 Code: 70186-3 Heart Rate 1: 80 bpm Height: 5'3" SpO2: 99% Weight: 168 lbs 04/03/2017 Blood Pressure 1: 144/64 Code: 8480-6 BMI: 29.1 Code: 56696-1 Heart Rate 1: 78 bpm Height: 5'3" SpO2: 98% Weight: 164 lbs 12/31/2016 Blood Pressure 1: 138/70 Code: 8480-6 BMI: 30.3 Code: 15395-8 Heart Rate 1: 84 bpm Height: 5'3" SpO2: 90% Weight: 171 lbs 10/07/2016 Blood Pressure 1: 146/78 Code: 8480-6 BMI: 29.4 Code: 94754-0 Heart Rate 1: 73 bpm Height: 5'3" SpO2: 99% Weight: 166 lbs 09/19/2016 Blood Pressure 1: 168/76 Code: 8480-6 BMI: 29.2 Code: 63069-9 Heart Rate 1: 88 bpm Height: 5'3" SpO2: 98% Weight: 165 lbs 07/08/2016 Blood Pressure 1: 120/80 Code: 8480-6 BMI: 28.3 Code: 02343-9 Heart Rate 1: 80 bpm Height: 5'3" SpO2: 99% Weight: 160 lbs 05/08/2016 Blood Pressure 1: 138/70 Code: 8480-6 BMI: 26.9 Code: 19931-0 Heart Rate 1: 93 bpm Height: 5'3" SpO2: 98% Weight: 152 lbs 03/28/2016 Blood Pressure 1: 144/74 Code: 8480-6 BMI: 27.6 Code: 88565-9 Heart Rate 1: 85 bpm Height: 5'3" SpO2: 99% Weight: 156 lbs 01/22/2016 Blood Pressure 1: 140/82 Code: 8480-6 BMI: 28.9 Code: 51127-1 Heart Rate 1: 104 bpm Height: 5'3" SpO2: 94% Weight: 163 lbs 12/21/2015 Blood Pressure 1: 140/90 Code: 8480-6 BMI: 28.7 Code: 95942-5 Heart Rate 1: 99 bpm Height: 5'3" SpO2: 96% Weight: 162 lbs 11/06/2015 Blood Pressure 1: 110/60 Code: 8480-6 BMI: 29.8 Code: 42282-4 Heart Rate 1: 93 bpm Height: 5'3" SpO2: 98% Weight: 168 lbs 10/20/2015 Blood Pressure 1: 152/62 Code: 8480-6 BMI: 29.8 Code: 95506-7 Heart Rate 1: 86 bpm Height: 5'3" SpO2: 96% Weight: 168 lbs 10/09/2015 Blood Pressure 1: 152/60 Code: 8480-6 BMI: 30.2 Code: 00172-1 Heart Rate 1: 83 bpm Height: 5'3" SpO2: 98% Weight: 170 lbs 8 oz 09/21/2015 Blood Pressure 1: 160/74 Code: 8480-6 Blood Pressure 1: 168/72 Code: 8480-6 BMI: 29.8 Code: 70779-8 Heart Rate 1: 82 bpm Height: 5'3" SpO2: 99% Weight: 168 lbs 08/22/2015 Blood Pressure 1: 170/82 Code: 8480-6 Blood Pressure 1: 178/78 Code: 8480-6 BMI: 29.2 Code: 67097-4 Heart Rate 1: 85 bpm Height: 5'3" SpO2: 99% Weight: 165 lbs 04/07/2015 Blood Pressure 1: 140/68 Code: 8480-6 BMI: 29.9 Code: 04950-8 Heart Rate 1: 81 bpm Height: 5'3" SpO2: 99% Weight: 169 lbs 01/02/2015 Blood Pressure 1: 162/72 Code: 8480-6 BMI: 30.3 Code: 92034-5 Heart Rate 1: 88 bpm Height: 5'3" SpO2: 98% Weight: 171 lbs Functional Status No Functional Status data History of Present Illness Symptom Name Status Result Effective Date Notes _ pain 12/25/2018 None Quality acute 12/25/2018 [...] glucose at home, see scanned readings 10/07/[address] [facility] diabetes mellitus Pertinent Findings Denies dizziness [...] data Encounters Encounter Performer Location Codes Date ([id number]) [id number] EST. PATIENT, LEVEL IV Diagnosis: Headache[ICD10: R51] Diagnosis: Traumatic subarachnoid hemorrhage without loss of consciousness, initial encounter[ICD10: S06.6X0A] Diagnosis: Urinary tract infection, site not specified[ICD10: N39.0] Diagnosis: Diarrhea, unspecified[ICD10: R19.7] Diagnosis: Unsteadiness on feet[ICD10: R26.81] Cordelia Garg MD, [facility] CPT-4: 35091 12/25/2018 [id number]) [id number] EST. PATIENT, LEVEL IV Diagnosis: Essential (primary) hypertension[ICD10: I10] Diagnosis: Type 2 diabetes mellitus with hyperglycemia[ICD10: E11.65] Diagnosis: Blister (nonthermal), right foot, initial encounter[ICD10: S90.821A] Riana Garg MD, [facility] CPT-4: 03643 10/27/2018 [id number] EST. PATIENT, LEVEL III Diagnosis: Dementia in other diseases classified elsewhere with behavioral disturbance[ICD10: F02.81] aCry Garg MD, [facility] CPT-4: 24330 08/26/2018 [id number]) 02019 EST. PATIENT, LEVEL IV Diagnosis: Type 2 diabetes mellitus with other specified complication[ICD10: E11.69] Diagnosis: Essential (primary) hypertension[ICD10: I10] Diagnosis: Other allergic rhinitis[ICD10: J30.89] Diagnosis: Chronic kidney disease, stage 4 (severe)[ICD10: N18.4] Cordelia Garg MD, [facility] CPT-4: 13940 07/20/2018 [id number] 94983 EST. PATIENT, LEVEL III Diagnosis: Essential (primary) hypertension[ICD10: I10] Diagnosis: Type 2 diabetes mellitus with other specified complication[ICD10: E11.69] Cordelia Garg MD, [facility] CPT-4: 06852 03/05/2018 [id number]) 13634 EST. PATIENT, LEVEL IV Diagnosis: Type 2 diabetes mellitus with hyperglycemia[ICD10: E11.65] Diagnosis: Hypothyroidism, unspecified[ICD10: E03.9] Diagnosis: Essential (primary) hypertension[ICD10: I10] Diagnosis: Chronic kidney disease, stage 4 (severe)[ICD10: N18.4] Cordelia Garg MD, [facility] CPT-4: 80836 10/30/2017 ([id number]) 72777 EST. PATIENT, LEVEL IV Diagnosis: Hypothyroidism, unspecified[ICD10: E03.9] Diagnosis: Type 2 diabetes mellitus with hyperglycemia[ICD10: E11.65] Diagnosis: Essential (primary) hypertension[ICD10: I10] Diagnosis: Chronic kidney disease, stage 4 (severe)[ICD10: N18.4] Cordelia Garg MD, [facility] CPT-4: 02328 07/03/2017 ([id number]) 83857 EST. PATIENT, LEVEL III Diagnosis: Type 2 diabetes mellitus with hyperglycemia[ICD10: E11.65] Diagnosis: Essential (primary) hypertension[ICD10: I10] Diagnosis: Chronic kidney disease, stage 4 (severe)[ICD10: N18.4] Cordelia Garg MD, [facility] CPT-4: 27688 04/03/2017 ([id number]) 70827 EST. PATIENT, LEVEL III Diagnosis: Type 2 diabetes mellitus with hyperglycemia[ICD10: E11.65] Cordelia Garg MD, [facility] CPT-4: 44363 12/31/2016 ([id number]) 06582 EST. PATIENT, LEVEL II Diagnosis: Type 2 diabetes mellitus with hyperglycemia[ICD10: E11.65] Diagnosis: Essential (primary) hypertension[ICD10: I10] Diagnosis: Actinic keratosis[ICD10: L57.0] Cordelia Garg MD, [facility] CPT-4: 14945 10/07/2016 ([id number]) 94477 EST. PATIENT, LEVEL IV Diagnosis: Type 2 diabetes mellitus with hyperglycemia[ICD10: E11.65] Diagnosis: Essential (primary) hypertension[ICD10: I10] Cordelia Garg MD, [facility] CPT-4: 90315 09/19/2016 ([id number]) 38375 EST. PATIENT, LEVEL III Diagnosis: Type 2 diabetes mellitus with hyperglycemia[ICD10: E11.65] Diagnosis: Gastro-esophageal reflux disease without esophagitis[ICD10: K21.9] Cordelia Garg MD, [facility] CPT-4: 62591 07/08/2016 ([id number]) 93673 EST. PATIENT, LEVEL III Diagnosis: Type 2 diabetes mellitus with hyperglycemia[ICD10: E11.65] Riana Garg MD [facility] CPT-4: 35872 05/08/2016 ([id number]) 21101 EST. PATIENT, LEVEL IV Diagnosis: Essential (primary) hypertension[ICD10: I10] Diagnosis: Type 2 diabetes mellitus with hyperglycemia[ICD10: E11.65] Diagnosis: Hypothyroidism, unspecified[ICD10: E03.9] Diagnosis: Chronic kidney disease, stage 4 (severe)[ICD10: N18.4] Cordelia Garg MD, [facility] CPT-4: 18746 03/28/2016 ([id number]) 03125 EST. PATIENT, LEVEL III Diagnosis: Type 2 diabetes mellitus with hyperglycemia[ICD10: E11.65] Diagnosis: Essential (primary) hypertension[ICD10: I10] Cordelia Garg MD [facility] CPT-4: 87142 01/22/2016 ([id number]) 84841 EST. PATIENT, LEVEL IV Diagnosis: Type 2 diabetes mellitus with hyperglycemia[ICD10: E11.65] Diagnosis: Hypothyroidism, unspecified[ICD10: E03.9] Diagnosis: Essential (primary) hypertension[ICD10: I10] Diagnosis: Chronic kidney disease, stage 4 (severe)[ICD10: N18.4] Riana Garg MD [facility] CPT-4: 40978 12/21/2015 ([id number]) 52580 EST. PATIENT, LEVEL III Diagnosis: Type 2 diabetes mellitus with hyperglycemia[ICD10: E11.65] Riana Garg MD, [facility] CPT-4: 71471 11/06/2015 ([id number]) 12649 EST. PATIENT, LEVEL IV Diagnosis: Type 2 diabetes mellitus with hyperglycemia[ICD10: E11.65] Diagnosis: Essential (primary) hypertension[ICD10: I10] Cordelia Garg MD, [facility] CPT-4: 26801 10/20/2015 ([id number]) 42467 EST. PATIENT, LEVEL IV Diagnosis: Type 2 diabetes mellitus with hyperglycemia[ICD10: E11.65] Diagnosis: Essential (primary) hypertension[ICD10: I10] Diagnosis: Actinic keratosis[ICD10: L57.0] Riana Garg MD, [facility] CPT-4: 95253 10/09/2015 ([id number]) 42481 EST. PATIENT, LEVEL IV Diagnosis: Type 2 diabetes mellitus with hyperglycemia[ICD10: E11.65] Diagnosis: Essential (primary) hypertension[ICD10: I10] Riana Garg MD [facility] CPT-4: 32432 09/21/2015 ([id number]) 30087 EST. PATIENT, LEVEL IV Diagnosis: Type 2 diabetes mellitus with hyperglycemia[ICD10: E11.65] Diagnosis: Hypothyroidism, unspecified[ICD10: E03.9] Diagnosis: Essential (primary) hypertension[ICD10: I10] Riana Garg MD [facility] CPT-4: 09264 08/22/2015 [id number]) 39077 EST. PATIENT, LEVEL IV Diagnosis: ESSENTIAL HYPERTENSION[ICD9: 401.9] Diagnosis: HYPERLIPIDEMIA[ICD9: 272.4] Diagnosis: DIABETES TYPE II[ICD9: 250.00] Riana Garg MD, [facility] CPT-4: 30008 04/07/2015 ([id number]) OFFICE/OUTPATIENT VISIT NEW Diagnosis: ESSENTIAL HYPERTENSION[ICD9: 401.9] Diagnosis: Diabetes mellitus out of control[ICD9: 250.02] Diagnosis: HYPOTHYROIDISM[ICD9: 244.9] Diagnosis: HYPERLIPIDEMIA[ICD9: 272.4] Riana Garg MD, [facility] CPT-4: 62426 01/02/2015 Plan of Care Planned Activity Notes Codes Status Date Appointment: Cordelia Kumar WPtel: [address] [place] [address] (30 min) Complex 12/29/2018 Visit Plan: Subarachnoid hemorrhage post fall -patient is not a surgical candidate -monitor symptoms UTI-recurrent -on antibiotics Gait instability-recommend walker Loose stools -start probiotic twice daily 12/25/2018 Appointment: Cordelia Kumar WPtel: [address] [place], [place] [phone] (15 min) Moderate 12/25/2018 Patient Education: Patient [...] [facility] I have recommended for the patient to [...] of heals. 10/27/2018 Appointment: Riana Garg WPtel: [phone] [facility] (15 min) Moderate 10/27/2018 Patient Education: Patient Medication Summary Completed 10/27/2018 Patient Education: Hypertension Completed 10/27/2018 Patient Education: Diabetes Completed 10/27/2018 Appointment: Riana Garg WPtel: [facility] (15 min) Moderate 10/14/2018 Patient [...] effectiveness. 08/26/2018 Appointment: Cary Rivera WPtel: [phone] [facility] (30 min) Complex 08/26/2018 Patient Education: Patient [...] starting to become less controlled. 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 (15 min) Moderate 07/20/2018 Patient Education: Patient [...] less controlled. 03/05/2018 Appointment: Cordelia Kumar WPtel: [phone] [phone] (30 min) Complex 03/05/2018 Patient Education: [...] voltaren gel 10/30/2017 Appointment: Cordelia Kumar WPtel: [address] [place], [place] [phone] (30 min) [facility] 10/30/2017 Patient Education: Patient Medication Summary Completed [...] starting to become less controlled. Left thumb lxzp-knxcdbo-okkwztvpy voltaren gel if symptoms persist 07/03/2017 [facility]: [phone] (30 min) Complex 07/03/2017 Patient Education: Patient [...] to become less controlled. 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 12/31/2016 Appointment: [phone] [phone] (30 min) Complex 12/31/2016 Patient Education: Patient [...] concerns. 10/07/2016 App[facility]ment: [phone] [phone] (30 min) Complex 10/07/2016 Appointment: Cordelia Kumartel: [phone] [phone] (30 min) Complex 10/07/2016 Patient Education: Patient [...] home. 09/19/2016 Appointment: Cordelia Kumar WPtel: [phone] [phone] (30 min) Complex 09/19/2016 Patient Education: Patient [...] Completed 07/08/2016 Appointment: Cordelia Kumar WPtel: [phone] [phone] (30 min) Complex 06/20/2016 Visit Plan: [...] stage 4- patient to make appt with [facility] Addendum: Patient noncompliant with blood sugar logs-she has been instructed to test QID but only tests daily- she did not bring her log for review today.- Patient has since moved to [facility] and they are checking her [...] stage 4- patient to make appt with [facility] Addendum: Patient has since moved to [facility] since this office visit. They are checking her blood sugars AC and HS and she is on a sliding scale to control her d iabetes. 03/28/2016 Visit Plan: Hypertension - well controlled [...] stage 4- patient to make appt with [facility] 03/28/2016 Visit Plan: Hypertension - [...] stage 4- patient to make appt with [facility] Addendum: Patient noncompliant with blood sugar logs-she has been instructed to test QID but only tests daily- she did not bring her log for review today.- Patient has since moved to [facility] since this office visit. They are checking her blood sugars AC and HS and she is on a sliding scale to control her diabetes. 03/28/2016 Patient Education: Patient Medication Summary Completed 03/28/2016 Appointment: Cordelia Kumar WPtel: [phone] [phone] (30 min) Complex 03/26/2016 App[facility]ment: [phone] [phone] (30 min) Complex 02/20/2016 Visit Plan: Diabetes [...] home. 01/22/2016 App[facility]ment: [phone] [phone] (30 min) Complex 01/22/2016 Patient Education: [...] pt has been seeing a group in [facility] but would like to be seen in [place] to avoid excessive travel. 12/21/2015 Patient Education: Patient Medication Summary Completed 12/21/2015 [facility]ment: [phone] ([facility] min) Moderate 12/18/2015 Visit Plan: DM [...] dications. 04/07/2015 Appointment: [phone] [facility] Follow up 04/07/2015 Patient Education: Patient Medication [...] of control. 01/02/2015 Appointment: [phone] [facility] [place] New Patient 01/02/2015 Patient Education: Patient Medication Summary Completed 01/02/2015 Patient Education: Hypertension Completed 01/02/2015 Instructions Comment . Dementia with Behaviors - I have [...] review today.- Patient has since moved to [facility] and they are checking her blood sugars AC and HS due to uncontrolled diabetes-she is on a sliding scale insulin which requires more frequent monitoring of blood sugars. . DM - medications unchanged today - pt was again without her glucose readings - recommended family to bring in her book. increase novolog to 12 units with morning [...] acute concerns. increase losartan to 100mg daily Next time you have an appt - please bring in your blood glucose log sheet Dr. Garg will send a referral today to the [facility] - they are located in the [facility] at [address] [place] [address] - phone number is [phone] . Hypertension - well controlled - continue [...] will send a referral today to the [facility] - they are located in the [facility] at [address] [place] [address] - phone number is [phone] . Hypertension - well controlled - continue [...] pt has been seeing a group in [facility] but would like to be seen in [place] to avoid excessive travel. BRING BLOOD SUGAR LOG IN 1 MONTH [...] based on previous levels of control. . Diabetes Mellitus - Uncontrolled - per [...] blood glucose control. Finger cellulitis - improved. . Hypertension - well controlled - continue [...] starting to become less controlled. Left thumb sdfs-iptbzvo-efumrfett voltaren gel if symptoms persist . Subarachnoid hemorrhage post fall -patient is [...] with patient to be filled by Amande[facility] Grijalva. . Diabetes Mellitus - controlled - per [...] starting to become less controlled. 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 Hypertension [...] to become less controlled. 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 Diabetes Mellitus [...] disease stage 4-patient to make appt with [facility] Addendum: Patient has since moved to [facility] since this office visit. They are checking her blood sugars AC and HS and she is on a sliding scale to control her diabetes. will have [facility] fax over blood sugar log. . [...] disease stage 4-patient to make appt with [facility] . Hypertension - well controlled [...] review today.- Patient has since moved to [facility] since this office visit. They [...] response to medications. . Diabetes Mellitus - NOT WELL CONTROLLED-HAVING [...] change in blood pressure readings at home. stop the GLIMEPIRIDE make sure that you [...] improved control [facility]. I have recommended for the patient to [...]
--- OUTSIDE RECORDS SUMMARY | 2019-02-16 18:08 | XMS REPORT | CCD ---
Author Author Riana Garg Organization Riana Garg MD, [facility] Address [address] [place] [address] Phone Care Team Providers Care Side Gluer Name Role Phone PP Unavailable CCM Unavailable Summary Purpose Interface Exchange Insurance Providers Payer name Policy type / Coverage type Covered libertarian ID Effective Begin Date Effective End Date WPS Medicare Part B [id number] 2015 Unknown [facility] Assistance [id number] Unknown Family history Mother Diagnosis Age At Onset Anemia Unknown Stroke Unknown Arthritis Unknown Hypertension Unknown Father Diagnosis Age At Onset Cancer Unknown Social History Social History Element Codes Description Effective Dates Marital status Unknown 01/02/2015 Number of children Unknown 3 01/02/2015 Employment Unknown Retired 01/02/[address]: 9141155 Quit over 10 years ago 25 years ago 01/02/[address]: 754245859 Never drinks alcohol 01/02/2015 Allergies, Adverse Reactions, [...] Start Date Stop Date Status Fill Instructions Coreg 6.25 mg tablet RxNorm: 343097 1.5 Tablet(s) PO BID 12/22/2018 05/20/2019 Active lorazepam 1 mg tablet RxNorm: 701455 1 Tablet(s) PO Q6 12/16/2018 01/14/2019 Active Levemir FlexTouch U-100 Insulin 100 unit/mL (3 mL) subcutaneous pen RxNorm: 521506 4 Unit(s) SQ daily 10/27/2018 No Stop Date Active risperidone 0.5 mg tablet RxNorm: 827345 1 Tablet(s) PO BID 10/07/2018 02/03/2019 Active losartan 50 mg tablet RxNorm: 381063 1 Tablet(s) PO daily give if 115/50 or greater 10/07/2018 10/01/2019 Active Novolog U-100 Insulin aspart 100 unit/mL subcutaneous solution RxNorm: 298441 5-10 Unit(s) SQ QID per sliding scale and 8 units daily at noon 10/07/2018 No Stop Date Active risperidone 0.25 mg tablet RxNorm: 331657 1 Tablet(s) PO BID 09/09/2018 10/06/2018 Inactive Risperdal 0.25 mg tablet RxNorm: 849434 1 Tablet(s) PO BID 09/09/2018 10/06/2018 Inactive Voltaren 1 % topical gel RxNorm: 925126 2 Gram(s) TOP QID 10/30/2017 No Stop Date Active Novolog 100 unit/mL subcutaneous solution RxNorm: 605112 5-10 Unit(s) SQ QID per sliding scale 07/03/2017 10/06/2018 Inactive Novolog 100 unit/mL subcutaneous solution RxNorm: 962056 8 Unit(s) SQ at noon 09/27/2016 No Stop Date Active Novolog Flexpen 100 unit/mL subcutaneous RxNorm: 6360249 8 Unit(s) SQ at noon 09/27/2016 09/27/2016 Inactive Novolog Flexpen 100 unit/mL subcutaneous RxNorm: 2340109 8 Unit(s) SQ at noon 09/27/2016 09/26/2016 Inactive Novolog 100 unit/mL subcutaneous solution RxNorm: 825359 9 Unit(s) SQ at noon 09/27/2016 09/26/2016 Inactive Lantus 100 unit/mL subcutaneous solution RxNorm: 932912 25 Unit(s) SQ QHS 09/19/2016 10/06/2018 Inactive Coreg 6.25 mg tablet RxNorm: 059848 2 Tablet(s) PO BID 07/08/2016 09/30/2017 Inactive Lantus Solostar 100 unit/mL (3 mL) subcutaneous insulin pen RxNorm: 918096 25 Unit(s) SQ QAM and 50 Units at bedtime 04/05/2016 05/07/2016 Inactive Synthroid 150 mcg tablet RxNorm: 219874 1 Tablet(s) PO daily 04/05/2016 07/02/2017 Inactive Lantus Solostar 100 unit/mL (3 mL) subcutaneous insulin pen RxNorm: 087474 20 Unit(s) SQ QAM and 45 Units at bedtime 01/03/2016 01/07/2016 Inactive Synthroid 125 mcg tablet RxNorm: 838556 1 Tablet(s) PO daily 12/20/2015 12/19/2015 Inactive Synthroid 125 mcg tablet RxNorm: 882591 1 Tablet(s) PO daily 12/20/2015 04/04/2016 Inactive Novolog Flexpen 100 unit/mL subcutaneous RxNorm: 7039141 15 Unit(s) SQ am and 15 units @ noon BID 11/15/2015 05/07/2016 Inactive Lantus Solostar 100 unit/mL (3 mL) subcutaneous insulin pen RxNorm: 283081 10 Unit(s) SQ QAM and 40 Units at bedtime 11/15/2015 11/19/2015 Inactive increased from 25u Coreg 6.25 mg tablet RxNorm: 926738 1.5 Tablet(s) PO BID 10/09/2015 07/07/2016 Inactive Lantus Solostar 100 unit/mL (3 mL) subcutaneous insulin pen RxNorm: 708916 35 Unit(s) SQ QHS 09/26/2015 11/14/2015 Inactive increased from 25u Novolog Flexpen 100 unit/mL subcutaneous RxNorm: 4618873 12 Unit(s) SQ am and 12 units @ noon BID 09/25/2015 11/14/2015 Inactive Lantus Solostar 100 unit/mL (3 mL) subcutaneous insulin pen RxNorm: 352123 35 Unit(s) SQ QHS 09/21/2015 09/25/2015 Inactive Novolog Flexpen 100 unit/mL subcutaneous RxNorm: 5007204 12 Unit(s) SQ am and 12 units @ noon BID - dr to increase based on glucose readings [id number] 10.4 09/21/2015 09/24/2015 Inactive losartan 100 mg tablet RxNorm: 365865 1 Tablet(s) PO daily 09/21/2015 09/14/2016 Inactive Lantus Solostar 100 unit/mL (3 mL) subcutaneous insulin pen RxNorm: 576144 25 Unit(s) SQ QHS 08/29/2015 09/20/2015 Inactive Novolog Flexpen 100 unit/mL subcutaneous RxNorm: 3211198 8 Unit(s) SQ am and noon BID 08/29/2015 09/20/2015 Inactive Lantus Solostar 100 unit/mL (3 mL) subcutaneous insulin pen RxNorm: 809316 25 Unit(s) SQ QHS 08/25/2015 08/28/2015 Inactive losartan 50 mg tablet RxNorm: 787105 1 Tablet(s) PO daily 08/22/2015 09/20/2015 Inactive levothyroxine 125 mcg tablet RxNorm: 262116 1 Tablet(s) PO daily 01/23/2015 04/22/2015 Inactive Plavix 75 mg tablet RxNorm: 487304 1 Tablet(s) PO daily 01/02/2015 09/22/2016 Inactive Aranesp 25 mcg/mL (in polysorbate) Injection RxNorm: 135730 Milliliter(s) Inj 30mcg q 2 weeks 01/02/2015 05/08/2016 Inactive [SAVINGS FOR NON-COVERED DRUGS -- BIN:[id number], PCN: [id number], Group: [id number], ID# [id number], Questions: . THIS IS NOT INSURANCE.] aspirin 81 mg chewable tablet RxNorm: 028927 1 Tablet(s) PO daily 01/02/2015 05/07/2016 Inactive Coreg 6.25 mg tablet RxNorm: 587968 1 Tablet(s) PO BID 01/02/2015 10/08/2015 Inactive cyanocobalamin (vit B-12) 1,000 mcg tablet RxNorm: 740548 1 Tablet(s) PO daily No Start Date Active Fish Oil 300 mg-1,000 mg capsule RxNorm: 614606 2 Capsule(s) PO daily No Start Date Active Crestor 40 mg tablet RxNorm: 430411 1 Tablet(s) PO daily No Start Date Active Multiple Vitamins tablet RxNorm: 1 Tablet(s) PO daily No Start Date Active ferrous sulfate 325 mg (65 mg iron) tablet RxNorm: 710182 1 Tablet(s) PO daily No Start Date Active Aranesp 40 mcg/mL (in polysorbate) Injection RxNorm: 400694 Inject 1 Milliliter(s) SQ Every 2 weeks No Start Date Active loratadine 10 mg tablet RxNorm: 420993 1 Tablet(s) PO daily No Start Date Active levothyroxine 100 mcg tablet RxNorm: 022465 1 Tablet(s) PO daily No Start Date Active aspirin 81 mg capsule,delayed release RxNorm: 941734 1 Capsule(s) PO daily No Start Date Active calcium carbonate 200 mg calcium (500 mg) chewable tablet RxNorm: 570202 1-2 Tablet(s) PO daily No Start Date Active Lasix 20 mg tablet RxNorm: 614952 1 Tablet(s) PO daily No Start Date Active lactulose 20 gram oral packet RxNorm: 4702058 30 packet PO BID No Start Date Active ferrous sulfate 325 mg (65 mg iron) tablet RxNorm: 462193 1 Tablet(s) PO daily No Start Date 05/07/2016 Inactive sodium bicarbonate 650 mg tablet RxNorm: 195490 1 Tablet(s) PO BID No Start Date 10/06/2018 Inactive Aranesp 25 mcg/mL (in polysorbate) Injection RxNorm: 723520 injection No Start Date 01/01/2015 Inactive Vitamin D3 2,000 unit tablet RxNorm: 901186 1 Tablet(s) PO daily No Start Date 10/06/2018 Inactive lovastatin 40 mg tablet RxNorm: 880545 1 Tablet(s) PO daily No Start Date 05/07/2016 Inactive Lipitor 40 mg tablet RxNorm: 007057 1 Tablet(s) PO QHS No Start Date 01/01/2015 Inactive amlodipine 2.5 mg tablet RxNorm: 126414 1 Tablet(s) PO BID No Start Date 12/16/2014 Inactive sodium bicarbonate 325 mg tablet RxNorm: 464897 1 Tablet(s) PO BID No Start Date 05/07/2016 Inactive levothyroxine 150 mcg tablet RxNorm: 679181 1 Tablet(s) PO daily No Start Date 01/22/2015 Inactive Lantus Solostar 100 unit/mL (3 mL) subcutaneous insulin pen RxNorm: 055024 20 Unit(s) SQ QHS No Start Date 08/24/2015 Inactive Vitamin B12 Oral RxNorm: oral No Start Date 10/06/2018 Inactive Lantus 100 unit/mL subcutaneous solution RxNorm: 241721 30 Unit(s) SQ QHS No Start Date 09/18/2016 Inactive Novolog 100 unit/mL subcutaneous solution RxNorm: 983654 10 Unit(s) SQ BID in the AM and at noon No Start Date 07/02/2017 Inactive aspirin 81 mg tablet RxNorm: 635341 1 Tablet(s) PO daily No Start Date 01/01/2015 Inactive Levemir FlexTouch U-100 Insulin 100 unit/mL (3 mL) subcutaneous pen RxNorm: 370337 25 Unit(s) SQ daily No Start Date 10/26/2018 Inactive Novolog Flexpen 100 unit/mL subcutaneous RxNorm: 6497469 8 Unit(s) SQ am and noon BID No Start Date 08/28/2015 Inactive glimepiride 4 mg tablet RxNorm: 659802 1 Tablet(s) PO daily No Start Date 10/08/2015 Inactive Vitamin D3 2,000 unit capsule RxNorm: 907619 1 Capsule(s) PO daily No Start Date [...] Observation Code Item Item Code Result Date Cbc With Differential Ord2 WBC 5.05 K/ul 12/30/2018 Cbc With Differential Ord2 RBC 2.33 M/ul 12/30/2018 Cbc With Differential Ord2 HGB 6.8 Result Verified By Repeat Analysis g/dl 12/30/2018 Cbc With Differential Ord2 HCT 22.3 % 12/30/2018 Cbc With Differential Ord2 Neut% 50.4 % 12/30/2018 Cbc With Differential Ord2 MCV 95.7 fl 12/30/2018 Cbc With Differential Ord2 Lymph% 30.3 % 12/30/2018 Cbc With Differential Ord2 MCH 29.2 pg 12/30/2018 Cbc With Differential Ord2 Ferry% 13.5 % 12/30/2018 Cbc With Differential Ord2 [...] 1.53 K/ul 12/30/2018 Cbc With Differential Ord2 Ferry ABS# 0.7 K/ul 12/30/2018 Cbc With Differential [...] 12/02/2018 Urinalysis Ord28 U-Yeast NEGATIVE 12/02/2018 Renal Efb226 NA 138 mEq/L 11/02/2018 Renal Zpy859 K 5.0 mEq/L 11/02/2018 Renal Faa084 CL 107 mEq/L 11/02/2018 Renal Tdp611 CO2 21.0 mEq/L 11/02/2018 Renal Tsr249 ANION GAP 15 11/02/2018 Renal Zmm617 Osmo 302 mOsmo 11/02/2018 Renal Nnq824 GLUCOSE 151 mg/dL 11/02/2018 Renal Obg472 BUN 79 mg/dL 11/02/2018 Renal Fyi694 Creat 3.5 mg/dL 11/02/2018 Renal Hhv595 eGFR 14 ml/min/1.73m2 11/02/2018 Renal Ogk058 B/C Ratio 22.9 Ratio 11/02/2018 Renal Vak111 CALCIUM 8.1 mg/dL 11/02/2018 Renal Ijj853 PHOS 6.2 mg/dL 11/02/2018 Renal Zfn385 ALBUMIN 3.4 g/dL 11/02/2018 Parathyroid Hormone Gik724 PTH 145.00 pg/ml 11/02/2018 Random Urine Protein/Creatinine Ratio Jew5463 U Prot 42.0 mg/dl 11/02/2018 Random Urine Protein/Creatinine Ratio Drb0316 U CREAT 72.0 mg/dL 11/02/2018 Random Urine Protein/Creatinine Ratio Gkq7334 R MTP/Creat Ratio 0.58 11/02/2018 Uric Acid [...] 34.3 % 11/02/2018 Cbc With Differential Ord2 Ferry% 13.4 % 11/02/2018 Cbc With Differential Ord2 [...] 2.38 K/ul 11/02/2018 Cbc With Differential Ord2 Ferry ABS# 0.9 K/ul 11/02/2018 Cbc With Differential Ord2 Eos ABS# 0.2 K/ul 11/02/2018 Cbc With Differential Ord2 Baso ABS# 0.0 K/ul 11/02/2018 Vitamin D 25 Oh Ecz3584 VITAMIN D, 25 HYDROXY 53.24 ng/mL 11/02/2018 [...] 30.6 pg 09/16/2018 Cbc With Differential Ord2 Ferry% 10.1 % 09/16/2018 Cbc With Differential Ord2 [...] 2.10 K/ul 09/16/2018 Cbc With Differential Ord2 Ferry ABS# 0.5 K/ul 09/16/2018 Cbc With Differential [...] (3rd IS) 1.93 uIU/mL 08/24/2018 Free T4 Eqw871 FREE T4 1.05 ng/dL 08/24/2018 Urinalysis Ord28 [...] 29.7 pg 08/17/2018 Cbc With Differential Ord2 Ferry% 9.8 % 08/17/2018 Cbc With Differential Ord2 [...] 2.14 K/ul 08/17/2018 Cbc With Differential Ord2 Ferry ABS# 0.7 K/ul 08/17/2018 Cbc With Differential Ord2 Eos ABS# 0.2 K/ul 08/17/2018 Cbc With Differential Ord2 Baso ABS# 0.0 K/ul 08/17/2018 Comp Metabolic Aeh386 NA 143 mEq/L 04/14/2018 Comp Metabolic Wcn542 K 4.6 mEq/L 04/14/2018 Comp Metabolic Uwq694 CL 108 mEq/L 04/14/2018 Comp Metabolic Jmd295 CO2 23.0 mEq/L 04/14/2018 Comp Metabolic Xxx342 ANION GAP 17 04/14/2018 Comp Metabolic Trk644 GLUCOSE 54 mg/dL 04/14/2018 Comp Metabolic Dgh658 Creat 2.7 mg/dL 04/14/2018 Comp Metabolic Hda710 eGFR 18 ml/min/1.73m2 04/14/2018 Comp Metabolic Tuq535 BUN 45 mg/dL 04/14/2018 Comp Metabolic Fnc255 B/C Ratio 16.9 Ratio 04/14/2018 Comp Metabolic Mvg480 CALCIUM 8.3 mg/dL 04/14/2018 Comp Metabolic Ijn798 ALK PHOS 113 U/L 04/14/2018 Comp Metabolic Zyh755 AST(SGOT) 31 U/L 04/14/2018 Comp Metabolic Mou505 ALT(SGPT) 33 U/L 04/14/2018 Comp Metabolic Ckj236 BILI T 0.5 mg/dL 04/14/2018 Comp Metabolic Jnc654 ALBUMIN 3.6 g/dL 04/14/2018 Comp Metabolic Vhy716 TPRO 6.5 g/dL 04/14/2018 Comp Metabolic Xzn747 GLOB 2.9 g/dL 04/14/2018 Comp Metabolic Jgl004 A/G Ratio 1.2 Ratio 04/14/2018 Comp Metabolic Wqa891 Osmo 294 mOsmo 04/14/2018 Lipid Ord30 CHOL [...] Ord28 U-Com Culture to follow 01/21/2018 %Hba1C Nuy082 % HbA1c 65820- 6 7.4 % 11/03/2017 %Hba1C Fwa299 Gluc Ave 166 mg/dL 11/03/2017 Urine Culture [...] 26.3 pg 09/20/2016 Cbc With Differential Ord2 Ferry% 11.3 % 09/20/2016 Cbc With Differential Ord2 [...] 1.08 K/ul 09/20/2016 Cbc With Differential Ord2 Ferry ABS# 0.5 K/ul 09/20/2016 Cbc With Differential Ord2 Eos ABS# 0.2 K/ul 09/20/2016 Cbc With Differential Ord2 Baso ABS# 0.1 K/ul 09/20/2016 Comp Metabolic Rdy862 NA 141 mEq/L 09/20/2016 Comp Metabolic Dan114 K 5.9 Result Verified By Repeat Analysis mEq/L 09/20/2016 Comp Metabolic Nkv086 CL 110 mEq/L 09/20/2016 Comp Metabolic Nfe900 CO2 23.0 mEq/L 09/20/2016 Comp Metabolic Zkx538 ANION GAP 14 09/20/2016 Comp Metabolic Esr918 GLUCOSE 101 mg/dL 09/20/2016 Comp Metabolic Msu777 Creat 2.2 mg/dL 09/20/2016 Comp Metabolic Ayf249 eGFR 23 ml/min/1.73m2 09/20/2016 Comp Metabolic Yly791 BUN 49 mg/dL 09/20/2016 Comp Metabolic Avr617 B/C Ratio 22.0 Ratio 09/20/2016 Comp Metabolic Yrg238 CALCIUM 8.7 mg/dL 09/20/2016 Comp Metabolic Luz473 ALK PHOS 142 U/L 09/20/2016 Comp Metabolic Clz139 AST(SGOT) 26 U/L 09/20/2016 Comp Metabolic Wgb032 ALT(SGPT) 27 U/L 09/20/2016 Comp Metabolic Dht870 BILI T 0.3 mg/dL 09/20/2016 Comp Metabolic Nwf976 ALBUMIN 4.0 g/dL 09/20/2016 Comp Metabolic Feq011 TPRO 7.6 g/dL 09/20/2016 Comp Metabolic Bwu440 GLOB 3.6 g/dL 09/20/2016 Comp Metabolic Oyk393 A/G Ratio 1.1 Ratio 09/20/2016 Comp Metabolic Sds313 Osmo 294 mOsmo 09/20/2016 %Hba1C Lsm206 % HbA1c 22561- 6 6.7 % 09/20/2016 %Hba1C Fwd466 Gluc Ave 146 mg/dL 09/20/2016 Urinalysis Ord28 [...] hours from collection if refrigerated) 05/31/2016 %Hba1C Zjq308 % HbA1c 78655- 6 13.5 % 03/28/2016 %Hba1C Uqd949 Gluc Ave 341 mg/dL 03/28/2016 Tsh Ord6 hTSH II 16.02 uIU/mL 03/28/2016 Comp Metabolic Asw753 NA 133 mEq/L 03/28/2016 Comp Metabolic Vqj161 K 5.4 mEq/L 03/28/2016 Comp Metabolic Zxe782 CL 102 mEq/L 03/28/2016 Comp Metabolic Ztz030 CO2 22.0 mEq/L 03/28/2016 Comp Metabolic Buc999 ANION GAP 14 03/28/2016 Comp Metabolic Slh191 GLUCOSE 432 mg/dL 03/28/2016 Comp Metabolic Tqf973 Creat 1.9 mg/dL 03/28/2016 Comp Metabolic Ilt959 eGFR 27 ml/min/1.73m2 03/28/2016 Comp Metabolic Biq091 BUN 38 mg/dL 03/28/2016 Comp Metabolic Nzj277 B/C Ratio 19.6 Ratio 03/28/2016 Comp Metabolic Not612 CALCIUM 8.9 mg/dL 03/28/2016 Comp Metabolic Hrw539 ALK PHOS 84 U/L 03/28/2016 Comp Metabolic Cjp228 AST(SGOT) 9 U/L 03/28/2016 Comp Metabolic Bin983 ALT(SGPT) 6 U/L 03/28/2016 Comp Metabolic Fvf559 BILI T 0.4 mg/dL 03/28/2016 Comp Metabolic Zkb677 ALBUMIN 3.6 g/dL 03/28/2016 Comp Metabolic Sjs980 TPRO 6.8 g/dL 03/28/2016 Comp Metabolic Bkx017 GLOB 3.2 g/dL 03/28/2016 Comp Metabolic Jtr042 A/G Ratio 1.1 Ratio 03/28/2016 Comp Metabolic Gkt888 Osmo 294 mOsmo 03/28/2016 Free T4 Vsi815 FREE T4 0.72 ng/dL 03/28/2016 Comp Metabolic Kpb935 NA 132 mEq/L 12/22/2015 Comp Metabolic Car669 K 4.6 mEq/L 12/22/2015 Comp Metabolic Ebg446 CL 97 mEq/L 12/22/2015 Comp Metabolic Myu803 CO2 24.0 mEq/L 12/22/2015 Comp Metabolic Vqc897 ANION GAP 16 12/22/2015 Comp Metabolic Hfy031 GLUCOSE 354 mg/dL 12/22/2015 Comp Metabolic Hmj147 Creat 1.8 mg/dL 12/22/2015 Comp Metabolic Ysn385 eGFR 29 ml/min/1.73m2 12/22/2015 Comp Metabolic Jzi029 BUN 47 mg/dL 12/22/2015 Comp Metabolic Wfd699 B/C Ratio 26.3 Ratio 12/22/2015 Comp Metabolic Nlk325 CALCIUM 9.5 mg/dL 12/22/2015 Comp Metabolic Dki129 ALK PHOS 100 U/L 12/22/2015 Comp Metabolic Xvu613 AST(SGOT) 15 U/L 12/22/2015 Comp Metabolic Wyn152 ALT(SGPT) 11 U/L 12/22/2015 Comp Metabolic Isf985 BILI T 0.4 mg/dL 12/22/2015 Comp Metabolic Wmj962 ALBUMIN 3.7 g/dL 12/22/2015 Comp Metabolic Pxf311 TPRO 7.1 g/dL 12/22/2015 Comp Metabolic Ybs615 GLOB 3.4 g/dL 12/22/2015 Comp Metabolic Wjv835 A/G Ratio 1.1 Ratio 12/22/2015 Comp Metabolic Oze030 Osmo 291 mOsmo 12/22/2015 Microalbumin Qsj515 MicroAlb 25.4 mg/dL 12/22/2015 Random Urine Protein/Creatinine Ratio Slo4836 U Prot 63.3 mg/dl 12/22/2015 Random Urine Protein/Creatinine Ratio Ftf3094 U CREAT 83.0 mg/dL 12/22/2015 Random Urine Protein/Creatinine Ratio Dll5399 R MTP/Creat Ratio 0.76 12/22/2015 %Hba1C Taq211 % HbA1c 47588- 6 11.9 % 12/21/2015 %Hba1C Wgh586 Gluc Ave 295 mg/dL 12/21/2015 Review of [...] General 1994 Eyes conjunctiva/eyelids Overall: conjunctiva clear 09/19/2016 None [...] Procedure Codes Date DESTRUCT PREMALG LESION CPT-4: 86443 10/07/2016 Vital Signs Date Vital 12/25/2018 Blood Pressure 1: 128/60 Code: 8480-6 BMI: 28.7 Code: 56198-5 Heart Rate 1: 68 bpm Height: 5'3" SpO2: 97% Weight: 162 lbs 10/27/2018 Blood Pressure 1: 128/68 Code: 8480-6 BMI: 27.6 Code: 47232-8 Heart Rate 1: 70 bpm Height: 5'3" SpO2: 94% Weight: 156 lbs 08/26/2018 Blood Pressure 1: 146/52 Code: 8480-6 BMI: 28.0 Code: 90817-9 Heart Rate 1: 68 bpm Height: 5'3" SpO2: 98% Weight: 158 lbs 07/20/2018 Blood Pressure 1: 144/70 Code: 8480-6 BMI: 28.3 Code: 83558-7 Heart Rate 1: 82 bpm Height: 5'3" SpO2: 100% Weight: 160 lbs 03/05/2018 Blood Pressure 1: 144/66 Code: 8480-6 BMI: 28.7 Code: 04045-2 Heart Rate 1: 83 bpm Height: 5'3" SpO2: 99% Weight: 162 lbs 10/30/2017 Blood Pressure 1: 122/58 Code: 8480-6 BMI: 30.1 Code: 77335-7 Heart Rate 1: 78 bpm Height: 5'3" SpO2: 98% Weight: 170 lbs 07/03/2017 Blood Pressure 1: 148/78 Code: 8480-6 BMI: 29.8 Code: 10917-2 Heart Rate 1: 80 bpm Height: 5'3" SpO2: 99% Weight: 168 lbs 04/03/2017 Blood Pressure 1: 144/64 Code: 8480-6 BMI: 29.1 Code: 40139-5 Heart Rate 1: 78 bpm Height: 5'3" SpO2: 98% Weight: 164 lbs 12/31/2016 Blood Pressure 1: 138/70 Code: 8480-6 BMI: 30.3 Code: 75519-6 Heart Rate 1: 84 bpm Height: 5'3" SpO2: 90% Weight: 171 lbs 10/07/2016 Blood Pressure 1: 146/78 Code: 8480-6 BMI: 29.4 Code: 44973-8 Heart Rate 1: 73 bpm Height: 5'3" SpO2: 99% Weight: 166 lbs 09/19/2016 Blood Pressure 1: 168/76 Code: 8480-6 BMI: 29.2 Code: 70999-7 Heart Rate 1: 88 bpm Height: 5'3" SpO2: 98% Weight: 165 lbs 07/08/2016 Blood Pressure 1: 120/80 Code: 8480-6 BMI: 28.3 Code: 02817-1 Heart Rate 1: 80 bpm Height: 5'3" SpO2: 99% Weight: 160 lbs 05/08/2016 Blood Pressure 1: 138/70 Code: 8480-6 BMI: 26.9 Code: 07329-3 Heart Rate 1: 93 bpm Height: 5'3" SpO2: 98% Weight: 152 lbs 03/28/2016 Blood Pressure 1: 144/74 Code: 8480-6 BMI: 27.6 Code: 36461-9 Heart Rate 1: 85 bpm Height: 5'3" SpO2: 99% Weight: 156 lbs 01/22/2016 Blood Pressure 1: 140/82 Code: 8480-6 BMI: 28.9 Code: 79899-8 Heart Rate 1: 104 bpm Height: 5'3" SpO2: 94% Weight: 163 lbs 12/21/2015 Blood Pressure 1: 140/90 Code: 8480-6 BMI: 28.7 Code: 45795-9 Heart Rate 1: 99 bpm Height: 5'3" SpO2: 96% Weight: 162 lbs 11/06/2015 Blood Pressure 1: 110/60 Code: 8480-6 BMI: 29.8 Code: 19211-6 Heart Rate 1: 93 bpm Height: 5'3" SpO2: 98% Weight: 168 lbs 10/20/2015 Blood Pressure 1: 152/62 Code: 8480-6 BMI: 29.8 Code: 48913-7 Heart Rate 1: 86 bpm Height: 5'3" SpO2: 96% Weight: 168 lbs 10/09/2015 Blood Pressure 1: 152/60 Code: 8480-6 BMI: 30.2 Code: 70747-2 Heart Rate 1: 83 bpm Height: 5'3" SpO2: 98% Weight: 170 lbs 8 oz 09/21/2015 Blood Pressure 1: 160/74 Code: 8480-6 Blood Pressure 1: 168/72 Code: 8480-6 BMI: 29.8 Code: 90512-0 Heart Rate 1: 82 bpm Height: 5'3" SpO2: 99% Weight: 168 lbs 08/22/2015 Blood Pressure 1: 170/82 Code: 8480-6 Blood Pressure 1: 178/78 Code: 8480-6 BMI: 29.2 Code: 76888-7 Heart Rate 1: 85 bpm Height: 5'3" SpO2: 99% Weight: 165 lbs 04/07/2015 Blood Pressure 1: 140/68 Code: 8480-6 BMI: 29.9 Code: 12644-0 Heart Rate 1: 81 bpm Height: 5'3" SpO2: 99% Weight: 169 lbs 01/02/2015 Blood Pressure 1: 162/72 Code: 8480-6 BMI: 30.3 Code: 50646-7 Heart Rate 1: 88 bpm Height: 5'3" [...] glucose at home, see scanned readings 10/07/2016 [facility] diabetes mellitus Pertinent Findings Denies [...] data Encounters Encounter Performer Location Codes Date EST. PATIENT, LEVEL IV Diagnosis: Headache[ICD10: R51] Diagnosis: Traumatic subarachnoid hemorrhage without loss of consciousness, initial encounter[ICD10: S06.6X0A] Diagnosis: Urinary tract infection, site not specified[ICD10: N39.0] Diagnosis: Diarrhea, unspecified[ICD10: R19.7] Diagnosis: Unsteadiness on feet[ICD10: R26.81] [facility] CPT-4: 09048 12/25/2018 [id number]) [id number] EST. PATIENT, LEVEL IV Diagnosis: Essential (primary) hypertension[ICD10: I10] Diagnosis: Type 2 diabetes mellitus with hyperglycemia[ICD10: E11.65] Diagnosis: Blister (nonthermal), right foot, initial encounter[ICD10: S90.821A] [facility] CPT-4: 76492 10/27/2018 [id number] EST. 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 PATIENT, LEVEL IV Diagnosis: Type 2 diabetes mellitus with other specified complication[ICD10: E11.69] Diagnosis: Essential (primary) hypertension[ICD10: I10] Diagnosis: Other allergic rhinitis[ICD10: J30.89] Diagnosis: Chronic kidney disease, stage 4 (severe)[ICD10: N18.4] Cordelia Garg MD, [facility] CPT-4: 06564 07/20/2018 ([id number]) [id number] EST. PATIENT, LEVEL III Diagnosis: Essential (primary) hypertension[ICD10: I10] Diagnosis: Type 2 diabetes mellitus with other specified complication[ICD10: E11.69] Cordelia Garg MD, [facility] CPT-4: 54950 03/05/2018 ([id number]) [id number] EST. PATIENT, LEVEL IV Diagnosis: Type 2 diabetes mellitus with hyperglycemia[ICD10: E11.65] Diagnosis: Hypothyroidism, unspecified[ICD10: E03.9] Diagnosis: Essential (primary) hypertension[ICD10: I10] Diagnosis: Chronic kidney disease, stage 4 (severe)[ICD10: N18.4] Cordelia Garg MD, [facility] CPT-4: 34701 10/30/2017 ([id number]) 48594 EST. PATIENT, LEVEL IV Diagnosis: Hypothyroidism, unspecified[ICD10: E03.9] Diagnosis: Type 2 diabetes mellitus with hyperglycemia[ICD10: E11.65] Diagnosis: Essential (primary) hypertension[ICD10: I10] Diagnosis: Chronic kidney disease, stage 4 (severe)[ICD10: N18.4] Cordelia Garg MD, [facility] CPT-4: 16481 07/03/2017 ([id number]) [id number] EST. PATIENT, LEVEL III Diagnosis: Type 2 diabetes mellitus with hyperglycemia[ICD10: E11.65] Diagnosis: Essential (primary) hypertension[ICD10: I10] Diagnosis: Chronic kidney disease, stage 4 (severe)[ICD10: N18.4] Cordelia Garg MD, [facility] CPT-4: 66429 04/03/2017 ([id number]) 88731 EST. PATIENT, LEVEL III Diagnosis: Type 2 diabetes mellitus with hyperglycemia[ICD10: E11.65] Cordelia Garg MD, [facility] CPT-4: 44213 12/31/2016 ([id number]) 60143 EST. PATIENT, LEVEL II Diagnosis: Type 2 diabetes mellitus with hyperglycemia[ICD10: E11.65] Diagnosis: Essential (primary) hypertension[ICD10: I10] Diagnosis: Actinic keratosis[ICD10: L57.0] Cordelia Garg MD, [facility] CPT-4: 12182 10/07/2016 ([id number]) 52507 EST. PATIENT, LEVEL IV Diagnosis: Type 2 diabetes mellitus with hyperglycemia[ICD10: E11.65] Diagnosis: Essential (primary) hypertension[ICD10: I10] Cordelia Garg MD, [facility] CPT-4: 82426 09/19/2016 ([id number]) 35961 EST. PATIENT, LEVEL III Diagnosis: Type 2 diabetes mellitus with hyperglycemia[ICD10: E11.65] Diagnosis: Gastro-esophageal reflux disease without esophagitis[ICD10: K21.9] Cordelia Garg MD, [facility] CPT-4: 93480 07/08/2016 ([id number]) 05465 EST. PATIENT, LEVEL III Diagnosis: Type 2 diabetes mellitus with hyperglycemia[ICD10: E11.65] Riana Garg MD, [facility] CPT-4: 86704 05/08/2016 ([id number]) [id number] EST. PATIENT, LEVEL IV Diagnosis: Essential (primary) hypertension[ICD10: I10] Diagnosis: Type 2 diabetes mellitus with hyperglycemia[ICD10: E11.65] Diagnosis: Hypothyroidism, unspecified[ICD10: E03.9] Diagnosis: Chronic kidney disease, stage 4 (severe)[ICD10: N18.4] Cordelia Garg MD, [facility] CPT-4: 92709 03/28/2016 ([id number]) [id number] EST. PATIENT, LEVEL III Diagnosis: Type 2 diabetes mellitus with hyperglycemia[ICD10: E11.65] Diagnosis: Essential (primary) hypertension[ICD10: I10] Cordelia Garg MD, [facility] CPT-4: 94148 01/22/2016 ([id number]) [id number] EST. PATIENT, LEVEL IV Diagnosis: Type 2 diabetes mellitus with hyperglycemia[ICD10: E11.65] Diagnosis: Hypothyroidism, unspecified[ICD10: E03.9] Diagnosis: Essential (primary) hypertension[ICD10: I10] Diagnosis: Chronic kidney disease, stage 4 (severe)[ICD10: N18.4] Riana Garg MD [facility] CPT-4: 90213 12/21/2015 ([id number]) 27827 EST. PATIENT, LEVEL III Diagnosis: Type 2 diabetes mellitus with hyperglycemia[ICD10: E11.65] Riana Garg MD [facility] CPT-4: 07254 11/06/2015 ([id number]) 69294 EST. PATIENT, LEVEL IV Diagnosis: Type 2 diabetes mellitus with hyperglycemia[ICD10: E11.65] Diagnosis: Essential (primary) hypertension[ICD10: I10] Cordelia Garg MD [facility] CPT-4: 48950 10/20/2015 ([id number]) 75727 EST. PATIENT, LEVEL IV Diagnosis: Type 2 diabetes mellitus with hyperglycemia[ICD10: E11.65] Diagnosis: Essential (primary) hypertension[ICD10: I10] Diagnosis: Actinic keratosis[ICD10: L57.0] Riana Garg MD [facility] CPT-4: 57795 10/09/2015 ([id number]) 08120 EST. PATIENT, LEVEL IV Diagnosis: Type 2 diabetes mellitus with hyperglycemia[ICD10: E11.65] Diagnosis: Essential (primary) hypertension[ICD10: I10] Riana Garg MD [facility] CPT-4: 47634 09/21/2015 ([id number]) 77343 EST. PATIENT, LEVEL IV Diagnosis: Type 2 diabetes mellitus with hyperglycemia[ICD10: E11.65] Diagnosis: Hypothyroidism, unspecified[ICD10: E03.9] Diagnosis: Essential (primary) hypertension[ICD10: I10] Riana Garg MD [facility] CPT-4: 92052 08/22/2015 ([id number]) 45470 EST. PATIENT, LEVEL IV Diagnosis: ESSENTIAL HYPERTENSION[ICD9: 401.9] Diagnosis: HYPERLIPIDEMIA[ICD9: 272.4] Diagnosis: DIABETES TYPE II[ICD9: 250.00] Riana Garg MD [facility] CPT-4: 25802 04/07/2015 ([id number]) OFFICE/OUTPATIENT VISIT NEW Diagnosis: ESSENTIAL HYPERTENSION[ICD9: 401.9] Diagnosis: Diabetes mellitus out of control[ICD9: 250.02] Diagnosis: HYPOTHYROIDISM[ICD9: 244.9] Diagnosis: HYPERLIPIDEMIA[ICD9: 272.4] [facility] CPT-4: 01365 01/02/2015 Plan of Care Planned Activity Notes Codes Status Date Appointment: Cordelia Kumar WPtel: [phone] [phone] (30 min) Complex 12/29/2018 Visit Plan: Subarachnoid hemorrhage post fall -patient is not a surgical candidate -monitor symptoms UTI-recurrent -on antibiotics Gait instability-recommend walker Loose stools -start probiotic twice daily 12/25/2018 Appointment: Cordelia Kumar WPtel: [phone] [phone] [place] (15 min) Moderate 12/25/2018 Patient Education: Patient [...] of heals. 10/27/2018 [facility]ment: [phone] [place] (15 min) Moderate 10/27/2018 Patient Education: Patient Medication Summary Completed 10/27/2018 Patient Education: Hypertension Completed 10/27/2018 Patient Education: Diabetes Completed 10/27/2018 Appointment: Riana Garg WPtel: [phone] [facility] (15 min) Moderate 10/14/2018 Patient Education: [...] effectiveness. 08/26/2018 [phone] ([facility] 08/26/2018 Patient Education: [...] starting to become less controlled. CKD-patient sees assisted living assistant-has decided not to do dialysis right now Allergies-rx for flonase 07/20/2018 App[facility]ment: [phone] [place] (15 min) Moderate 07/20/2018 Patient Education: [...] controlled. 03/05/2018 App[facility]ment: [phone] [place] (30 min) Complex 03/05/2018 Patient Education: Patient [...] voltaren gel 10/30/2017 App[facility]ment: [phone] [place] (30 min) Complex 10/30/2017 Patient Education: Patient [...] starting to become less controlled. Left thumb ypxq-llfyhsk-xbsjakexr voltaren gel if symptoms persist 07/03/2017 Appointment: Cordelia Kumar WPtel[phone] ([facility] min) [facility] 07/03/2017 Patient Education: Patient Medication Summary Completed [...] to become less controlled. Chronic renal disease-sees assisted living assistant and also tobacco checkout clerk for management of anemia 04/03/2017 Visit Plan: [...] to become less controlled. Chronic renal disease-sees assisted living assistant and also tobacco checkout clerk for management of anemia 04/03/2017 Appointment: Cordelia Kumar WPtel: [phone] [phone] (30 min) Complex 04/03/2017 Patient Education: Patient [...] controlled. 12/31/2016 Appointment: [phone] (30 min) Complex 12/31/2016 Patient Education: [...] acute concerns. 10/07/2016 Appointment: Cordelia Kumar WPtel: [facility] (30 min) Complex 10/07/2016 Appointment: Cordelia Kumar WPtel: [facility] [place] [address] (30 min) Complex 10/07/2016 Patient Education: Patient [...] home. 09/19/2016 Appointment: Cordelia Kumar WPtel: [phone] [facility] [place] [address] (30 min) Complex 09/19/2016 Patient Education: Patient [...] Completed 07/08/2016 App[facility]ment: [phone] (30 min) Complex 06/20/2016 Visit Plan: Diabetes [...] review today.- Patient has since moved to [facility] since this office visit. They [...] to make appt with [facility] 03/28/2016 Visit Plan: Hypertension - [...] stage 4- patient to make appt with [facility] Addendum: Patient noncompliant with blood sugar logs-she has been instructed to test QID but only tests daily- she did not bring her log for review today.- Patient has since moved to [facility] and they are checking her [...] stage 4- patient to make appt with [facility] Addendum: Patient has since moved to [facility] since this office visit. They are checking her blood sugars AC and HS and she is on a sliding scale to control her d iabetes. 03/28/2016 Patient Education: Patient Medication Summary Completed 03/28/2016 App[facility]ment: [phone] [place] (30 min) Complex 03/26/2016 App[facility]ment: [phone] [place] (30 min) Complex 02/20/2016 Visit Plan: Diabetes [...] at home. 01/22/2016 Appointment: Cordelia Kumar WPtel: [address] [place] [phone] (30 min) [facility] 01/22/2016 Patient Education: Patient Medication Summary Completed [...] pt has been seeing a group in [facility] but would like to be seen in [place] to avoid excessive travel. 12/21/2015 Visit Plan: [...] Summary Completed 12/21/2015 Appointment: Riana Garg WPtel: [facility] (15 min) Moderate 12/18/2015 Visit Plan: DM [...] me dications. 04/07/2015 Appointment: Riana Garg WPtel: [facility] Follow up 04/07/2015 Patient Education: Patient Medication [...] of control. 01/02/2015 Appointment: [facility]iana Garg [facility]el: [phone] [place] ([place]) New Patient 01/02/2015 Patient Education: [...] glucose control. Finger cellulitis - improved. . Diabetes Mellitus - Uncontrolled - per [...] months based on previous levels of control. BRING BLOOD SUGAR LOG IN 1 MONTH [...] in blood pressure readings at home. . 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 The patient is on medication which appears to be controlling the worst of the symptoms. I have not recommended a change to the regimen at this time, but will continue to closely monitor the medications for effectiveness. Next time you have an appt - please bring in your blood glucose log sheet Dr. Garg will send a referral today to the [facility] - they are located in the [facility] at [address] [place] [address] in [place] - phone number is [phone] . Hypertension - well controlled - continue [...] pt has been seeing a group in [facility] - but would like to be seen in [place] to avoid excessive travel. Next time you have an appt - please bring in your blood glucose log sheet Dr. Garg will send a referral today to the [facility] - they are located in the [facility] at [address] [place] [address] in [place] - phone number is [phone] . Hypertension - well controlled - continue [...] assure normal liver response to medications. . Hypertension - well controlled - continue [...] review today.- Patient has since moved to [facility] since this office visit. They [...] disease stage 4-patient to make appt with [facility] . Hypertension - well controlled [...] disease stage 4-patient to make appt with [facility] Addendum: Patient noncompliant with blood sugar logs-she has been instructed to test QID but only tests daily-she did not bring her log for review today.- Patient has since moved to [facility] and they are checking her [...] group Addendum: Patient has since moved to [facility] since this office visit. They are checking her blood sugars AC and HS and she is on a sliding scale to control her diabetes. . Diabetes Mellitus - I have recommended [...] to become less controlled. Chronic renal disease-sees assisted living assistant and also tobacco checkout clerk for management of anemia . Diabetes Mellitus - controlled - per [...] at home. Left thumb pain-RX voltaren gel check hgb a1c flonase nasal spray . [...] starting to become less controlled. CKD-patient sees assisted living assistant-has decided not to do dialysis right now Allergies-rx for flonase Mylanta for reflux symptoms- script sent with [...] less controlled. GERD-mylanta prn for gi upset. DO NOT TAKE NOVOLOG IF YOU DO [...] pt is to call for acute concerns. . Subarachnoid hemorrhage post fall -patient is not a surgical candidate -monitor symptoms UTI-recurrent -on antibiotics Gait instability-recommend walker Loose stools -start probiotic twice daily . Hypertension - well controlled - [...] starting to become less controlled. Left thumb bhkl-bgqnhsb-akhdtouna voltaren gel if symptoms persist . Hypertension - uncontrolled - the patient's [...] drainage, or any other acute concerns. . DM - medications unchanged today - [...] acute concerns. increase losartan to 100mg daily will have [facility] fax over blood sugar log. . [...] and keep pressure off of heals. . Hypertension - well controlled - continue [...] to become less controlled. Chronic renal disease-sees assisted living assistant and also tobacco checkout clerk for management of anemia
--- NOTE | 2019-02-16 18:23 | Diagnostic Imaging Report ---
PROCEDURE: CT head and CT cervical spine without contrast. TECHNIQUE: Multiple contiguous axial images were obtained through the brain and cervical spine without the use of intravenous contrast. Sagittal and coronal reformations through the cervical spine were then performed. Auto Exposure Controls were utilized during the CT exam to meet ALARA standards for radiation dose reduction. INDICATION: Fall with head and neck injury. COMPARISON: Correlation is made with prior CT from 12/17/2018. FINDINGS: CT head: There is a large hematoma involving the left posterior parieto-occipital scalp. Ventricular size is stable. No sulcal effacement or midline shift is identified. No acute intra-axial or extra-axial hemorrhage is detected. Cisterns are patent. Visualized paranasal sinuses show some partial opacification of the sphenoid sinus with mucosal thickening of ethmoid air cells and maxillary sinuses. No depressed calvarial fracture is seen. IMPRESSION: 1. Large left posterior parieto-occipital scalp hematoma. 2. No acute intracranial process is detected. CT cervical spine: The curvature of the cervical spine is normal. There is minimal retrolisthesis of C3 on C4. Significant degenerative disc disease at C5-C6 is seen with disc space narrowing and marginal spurring. No fractures are seen. Odontoid is intact. Prevertebral tissues are normal. IMPRESSION: Cervical spondylosis. No acute bony abnormality is detected. Dictated by: Dictated on workstation # [id number]
--- OUTSIDE RECORDS SUMMARY | 2019-02-16 18:26 | XMS REPORT | CCD ---
Author Author Riana Garg Organization Riana Garg MD, [facility] Address [address] [place] [address] Phone Care Team Providers Care Stopping Builder Name Role Phone PP Unavailable CCM Unavailable Summary Purpose Interface Exchange Insurance Providers Payer name Policy type / Coverage type Covered libertarian ID Effective Begin Date Effective End Date WPS Medicare Part B [id number] 2015 Unknown [facility] Assistance [id number] Unknown Family history Mother Diagnosis Age At Onset Anemia Unknown Stroke Unknown Arthritis Unknown Hypertension Unknown Father Diagnosis Age At Onset Cancer Unknown Social History Social History Element Codes Description Effective Dates Marital status Unknown 01/02/2015 Number of children Unknown 3 01/02/2015 Employment Unknown Retired 01/02/[address]: 4111210 Quit over 10 years ago 25 years ago 01/02/[address]: 248779537 Never drinks alcohol 01/02/2015 Allergies, Adverse Reactions, [...] Fill Instructions Coreg 6.25 mg tablet RxNorm: 792523 1.5 Tablet(s) PO BID 12/22/2018 05/20/2019 Active lorazepam 1 mg tablet RxNorm: 124476 1 Tablet(s) PO Q6 12/16/2018 01/14/2019 Active Levemir FlexTouch U-100 Insulin 100 unit/mL (3 mL) subcutaneous pen RxNorm: 911755 4 Unit(s) SQ daily 10/27/2018 No Stop Date Active risperidone 0.5 mg tablet RxNorm: 615012 1 Tablet(s) PO BID 10/07/2018 02/03/2019 Active losartan 50 mg tablet RxNorm: 270843 1 Tablet(s) PO daily give if 115/50 or greater 10/07/2018 10/01/2019 Active Novolog U-100 Insulin aspart 100 unit/mL subcutaneous solution RxNorm: 357775 5-10 Unit(s) SQ QID per sliding scale and 8 units daily at noon 10/07/2018 No Stop Date Active risperidone 0.25 mg tablet RxNorm: 638820 1 Tablet(s) PO BID 09/09/2018 10/06/2018 Inactive Risperdal 0.25 mg tablet RxNorm: 675634 1 Tablet(s) PO BID 09/09/2018 10/06/2018 Inactive Voltaren 1 % topical gel RxNorm: 393543 2 Gram(s) TOP QID 10/30/2017 No Stop Date Active Novolog 100 unit/mL subcutaneous solution RxNorm: 539699 5-10 Unit(s) SQ QID per sliding scale 07/03/2017 10/06/2018 Inactive Novolog 100 unit/mL subcutaneous solution RxNorm: 288599 8 Unit(s) SQ at noon 09/27/2016 No Stop Date Active Novolog Flexpen 100 unit/mL subcutaneous RxNorm: 5281224 8 Unit(s) SQ at noon 09/27/2016 09/27/2016 Inactive Novolog Flexpen 100 unit/mL subcutaneous RxNorm: 4228567 8 Unit(s) SQ at noon 09/27/2016 09/26/2016 Inactive Novolog 100 unit/mL subcutaneous solution RxNorm: 824070 9 Unit(s) SQ at noon 09/27/2016 09/26/2016 Inactive Lantus 100 unit/mL subcutaneous solution RxNorm: 449184 25 Unit(s) SQ QHS 09/19/2016 10/06/2018 Inactive Coreg 6.25 mg tablet RxNorm: 043568 2 Tablet(s) PO BID 07/08/2016 09/30/2017 Inactive Lantus Solostar 100 unit/mL (3 mL) subcutaneous insulin pen RxNorm: 625782 25 Unit(s) SQ QAM and 50 Units at bedtime 04/05/2016 05/07/2016 Inactive Synthroid 150 mcg tablet RxNorm: 839896 1 Tablet(s) PO daily 04/05/2016 07/02/2017 Inactive Lantus Solostar 100 unit/mL (3 mL) subcutaneous insulin pen RxNorm: 561639 20 Unit(s) SQ QAM and 45 Units at bedtime 01/03/2016 01/07/2016 Inactive Synthroid 125 mcg tablet RxNorm: 419536 1 Tablet(s) PO daily 12/20/2015 12/19/2015 Inactive Synthroid 125 mcg tablet RxNorm: 970978 1 Tablet(s) PO daily 12/20/2015 04/04/2016 Inactive Novolog Flexpen 100 unit/mL subcutaneous RxNorm: 9508799 15 Unit(s) SQ am and 15 units @ noon BID 11/15/2015 05/07/2016 Inactive Lantus Solostar 100 unit/mL (3 mL) subcutaneous insulin pen RxNorm: 852541 10 Unit(s) SQ QAM and 40 Units at bedtime 11/15/2015 11/19/2015 Inactive increased from 25u Coreg 6.25 mg tablet RxNorm: 654595 1.5 Tablet(s) PO BID 10/09/2015 07/07/2016 Inactive Lantus Solostar 100 unit/mL (3 mL) subcutaneous insulin pen RxNorm: 838895 35 Unit(s) SQ QHS 09/26/2015 11/14/2015 Inactive increased from 25u Novolog Flexpen 100 unit/mL subcutaneous RxNorm: 9831928 12 Unit(s) SQ am and 12 units @ noon BID 09/25/2015 11/14/2015 Inactive Lantus Solostar 100 unit/mL (3 mL) subcutaneous insulin pen RxNorm: 472751 35 Unit(s) SQ QHS 09/21/2015 09/25/2015 Inactive Novolog Flexpen 100 unit/mL subcutaneous RxNorm: 0212306 12 Unit(s) SQ am and 12 units @ noon BID - dr to increase based on glucose readings [id number] 10.4 09/21/2015 09/24/2015 Inactive losartan 100 mg tablet RxNorm: 358643 1 Tablet(s) PO daily 09/21/2015 09/14/2016 Inactive Lantus Solostar 100 unit/mL (3 mL) subcutaneous insulin pen RxNorm: 521476 25 Unit(s) SQ QHS 08/29/2015 09/20/2015 Inactive Novolog Flexpen 100 unit/mL subcutaneous RxNorm: 5635772 8 Unit(s) SQ am and noon BID 08/29/2015 09/20/2015 Inactive Lantus Solostar 100 unit/mL (3 mL) subcutaneous insulin pen RxNorm: 472963 25 Unit(s) SQ QHS 08/25/2015 08/28/2015 Inactive losartan 50 mg tablet RxNorm: 579936 1 Tablet(s) PO daily 08/22/2015 09/20/2015 Inactive levothyroxine 125 mcg tablet RxNorm: 848276 1 Tablet(s) PO daily 01/23/2015 04/22/2015 Inactive Plavix 75 mg tablet RxNorm: 720642 1 Tablet(s) PO daily 01/02/2015 09/22/2016 Inactive Aranesp 25 mcg/mL (in polysorbate) Injection RxNorm: 141283 Milliliter(s) Inj 30mcg q 2 weeks 01/02/2015 05/08/2016 Inactive [SAVINGS FOR NON-COVERED DRUGS -- BIN:[id number], PCN: [id number], Group: [id number], ID# [id number], Questions: . THIS IS NOT INSURANCE.] aspirin 81 mg chewable tablet RxNorm: 024388 1 Tablet(s) PO daily 01/02/2015 05/07/2016 Inactive Coreg 6.25 mg tablet RxNorm: 888407 1 Tablet(s) PO BID 01/02/2015 10/08/2015 Inactive cyanocobalamin (vit B-12) 1,000 mcg tablet RxNorm: 142004 1 Tablet(s) PO daily No Start Date Active Fish Oil 300 mg-1,000 mg capsule RxNorm: 962690 2 Capsule(s) PO daily No Start Date Active Crestor 40 mg tablet RxNorm: 254326 1 Tablet(s) PO daily No Start Date Active Multiple Vitamins tablet RxNorm: 1 Tablet(s) PO daily No Start Date Active ferrous sulfate 325 mg (65 mg iron) tablet RxNorm: 625247 1 Tablet(s) PO daily No Start Date Active Aranesp 40 mcg/mL (in polysorbate) Injection RxNorm: 499827 Inject 1 Milliliter(s) SQ Every 2 weeks No Start Date Active loratadine 10 mg tablet RxNorm: 608006 1 Tablet(s) PO daily No Start Date Active levothyroxine 100 mcg tablet RxNorm: 301581 1 Tablet(s) PO daily No Start Date Active aspirin 81 mg capsule,delayed release RxNorm: 230846 1 Capsule(s) PO daily No Start Date Active calcium carbonate 200 mg calcium (500 mg) chewable tablet RxNorm: 081330 1-2 Tablet(s) PO daily No Start Date Active Lasix 20 mg tablet RxNorm: 862790 1 Tablet(s) PO daily No Start Date Active lactulose 20 gram oral packet RxNorm: 0478470 30 packet PO BID No Start Date Active ferrous sulfate 325 mg (65 mg iron) tablet RxNorm: 092286 1 Tablet(s) PO daily No Start Date 05/07/2016 Inactive sodium bicarbonate 650 mg tablet RxNorm: 763619 1 Tablet(s) PO BID No Start Date 10/06/2018 Inactive Aranesp 25 mcg/mL (in polysorbate) Injection RxNorm: 321881 injection No Start Date 01/01/2015 Inactive Vitamin D3 2,000 unit tablet RxNorm: 382674 1 Tablet(s) PO daily No Start Date 10/06/2018 Inactive lovastatin 40 mg tablet RxNorm: 958488 1 Tablet(s) PO daily No Start Date 05/07/2016 Inactive Lipitor 40 mg tablet RxNorm: 871293 1 Tablet(s) PO QHS No Start Date 01/01/2015 Inactive amlodipine 2.5 mg tablet RxNorm: 617031 1 Tablet(s) PO BID No Start Date 12/16/2014 Inactive sodium bicarbonate 325 mg tablet RxNorm: 935446 1 Tablet(s) PO BID No Start Date 05/07/2016 Inactive levothyroxine 150 mcg tablet RxNorm: 092772 1 Tablet(s) PO daily No Start Date 01/22/2015 Inactive Lantus Solostar 100 unit/mL (3 mL) subcutaneous insulin pen RxNorm: 916732 20 Unit(s) SQ QHS No Start Date 08/24/2015 Inactive Vitamin B12 Oral RxNorm: oral No Start Date 10/06/2018 Inactive Lantus 100 unit/mL subcutaneous solution RxNorm: 754279 30 Unit(s) SQ QHS No Start Date 09/18/2016 Inactive Novolog 100 unit/mL subcutaneous solution RxNorm: 598968 10 Unit(s) SQ BID in the AM and at noon No Start Date 07/02/2017 Inactive aspirin 81 mg tablet RxNorm: 916865 1 Tablet(s) PO daily No Start Date 01/01/2015 Inactive Levemir FlexTouch U-100 Insulin 100 unit/mL (3 mL) subcutaneous pen RxNorm: 671760 25 Unit(s) SQ daily No Start Date 10/26/2018 Inactive Novolog Flexpen 100 unit/mL subcutaneous RxNorm: 8282922 8 Unit(s) SQ am and noon BID No Start Date 08/28/2015 Inactive glimepiride 4 mg tablet RxNorm: 010274 1 Tablet(s) PO daily No Start Date 10/08/2015 Inactive Vitamin D3 2,000 unit capsule RxNorm: 619343 1 Capsule(s) PO daily No Start Date [...] Observation Code Item Item Code Result Date Metabolic Ord15 NA 143 mEq/L 12/16/2018 Metabolic [...] 12/02/2018 Urinalysis Ord28 U-Yeast NEGATIVE 12/02/2018 Renal Qpl729 NA 138 mEq/L 11/02/2018 Renal Xha791 K 5.0 mEq/L 11/02/2018 Renal Ecv153 CL 107 mEq/L 11/02/2018 Renal Hnp293 CO2 21.0 mEq/L 11/02/2018 Renal Bmt503 ANION GAP 15 11/02/2018 Renal Atx006 Osmo 302 mOsmo 11/02/2018 Renal Knf082 GLUCOSE 151 mg/dL 11/02/2018 Renal Ccf482 BUN 79 mg/dL 11/02/2018 Renal Ejs743 Creat 3.5 mg/dL 11/02/2018 Renal Tmt227 eGFR 14 ml/min/1.73m2 11/02/2018 Renal Rrh649 B/C Ratio 22.9 Ratio 11/02/2018 Renal Lxn906 CALCIUM 8.1 mg/dL 11/02/2018 Renal Jbk841 PHOS 6.2 mg/dL 11/02/2018 Renal Bdd554 ALBUMIN 3.4 g/dL 11/02/2018 Parathyroid Hormone Zfj052 PTH 145.00 pg/ml 11/02/2018 Random Urine Protein/Creatinine Ratio Rys9256 U Prot 42.0 mg/dl 11/02/2018 Random Urine Protein/Creatinine Ratio Yfc7987 U CREAT 72.0 mg/dL 11/02/2018 Random Urine Protein/Creatinine Ratio Cek8009 R MTP/Creat Ratio 0.58 11/02/2018 Uric Acid [...] 34.3 % 11/02/2018 Cbc With Differential Ord2 Vernon% 13.4 % 11/02/2018 Cbc With Differential Ord2 [...] 2.38 K/ul 11/02/2018 Cbc With Differential Ord2 Vernon ABS# 0.9 K/ul 11/02/2018 Cbc With Differential Ord2 Eos ABS# 0.2 K/ul 11/02/2018 Cbc With Differential Ord2 Baso ABS# 0.0 K/ul 11/02/2018 Vitamin D 25 Oh Duh0827 VITAMIN D, 25 HYDROXY 53.24 ng/mL 11/02/2018 [...] 30.6 pg 09/16/2018 Cbc With Differential Ord2 Vernon% 10.1 % 09/16/2018 Cbc With Differential Ord2 [...] 2.10 K/ul 09/16/2018 Cbc With Differential Ord2 [place] ABS# 0.5 K/ul 09/16/2018 Cbc With Differential [...] (3rd IS) 1.93 uIU/mL 08/24/2018 Free T4 Alb953 FREE T4 1.05 ng/dL 08/24/2018 Urinalysis Ord28 [...] 29.7 pg 08/17/2018 Cbc With Differential Ord2 Vernon% 9.8 % 08/17/2018 Cbc With Differential Ord2 [...] 2.14 K/ul 08/17/2018 Cbc With Differential Ord2 [place] ABS# 0.7 K/ul 08/17/2018 Cbc With Differential Ord2 Eos ABS# 0.2 K/ul 08/17/2018 Cbc With Differential Ord2 Baso ABS# 0.0 K/ul 08/17/2018 Comp Metabolic Uhs937 NA 143 mEq/L 04/14/2018 Comp Metabolic Znv195 K 4.6 mEq/L 04/14/2018 Comp Metabolic Zeo086 CL 108 mEq/L 04/14/2018 Comp Metabolic Aec305 CO2 23.0 mEq/L 04/14/2018 Comp Metabolic Xif323 ANION GAP 17 04/14/2018 Comp Metabolic Cbr465 GLUCOSE 54 mg/dL 04/14/2018 Comp Metabolic Ozm034 Creat 2.7 mg/dL 04/14/2018 Comp Metabolic Nit983 eGFR 18 ml/min/1.73m2 04/14/2018 Comp Metabolic Clk366 BUN 45 mg/dL 04/14/2018 Comp Metabolic Yzj709 B/C Ratio 16.9 Ratio 04/14/2018 Comp Metabolic Smb515 CALCIUM 8.3 mg/dL 04/14/2018 Comp Metabolic Wss097 ALK PHOS 113 U/L 04/14/2018 Comp Metabolic Aoc264 AST(SGOT) 31 U/L 04/14/2018 Comp Metabolic Btz118 ALT(SGPT) 33 U/L 04/14/2018 Comp Metabolic Gic662 BILI T 0.5 mg/dL 04/14/2018 Comp Metabolic Ztk970 ALBUMIN 3.6 g/dL 04/14/2018 Comp Metabolic Ldg528 TPRO 6.5 g/dL 04/14/2018 Comp Metabolic Tdg902 GLOB 2.9 g/dL 04/14/2018 Comp Metabolic Dlz063 A/G Ratio 1.2 Ratio 04/14/2018 Comp Metabolic Cwm953 Osmo 294 mOsmo 04/14/2018 Lipid Ord30 CHOL [...] Ord28 U-Com Culture to follow 01/21/2018 %Hba1C Kvt715 % HbA1c 51928- 6 7.4 % 11/03/2017 %Hba1C Joe938 Gluc Ave 166 mg/dL 11/03/2017 Urine Culture [...] 26.3 pg 09/20/2016 Cbc With Differential Ord2 Vernon% 11.3 % 09/20/2016 Cbc With Differential Ord2 [...] 1.08 K/ul 09/20/2016 Cbc With Differential Ord2 [place] ABS# 0.5 K/ul 09/20/2016 Cbc With Differential Ord2 Eos ABS# 0.2 K/ul 09/20/2016 Cbc With Differential Ord2 Baso ABS# 0.1 K/ul 09/20/2016 Comp Metabolic Yat043 NA 141 mEq/L 09/20/2016 Comp Metabolic Liy687 K 5.9 Result Verified By Repeat Analysis mEq/L 09/20/2016 Comp Metabolic Hgo758 CL 110 mEq/L 09/20/2016 Comp Metabolic Jio009 CO2 23.0 mEq/L 09/20/2016 Comp Metabolic Blw722 ANION GAP 14 09/20/2016 Comp Metabolic Enq114 GLUCOSE 101 mg/dL 09/20/2016 Comp Metabolic Meg680 Creat 2.2 mg/dL 09/20/2016 Comp Metabolic Wpj386 eGFR 23 ml/min/1.73m2 09/20/2016 Comp Metabolic Inq369 BUN 49 mg/dL 09/20/2016 Comp Metabolic Jcz876 B/C Ratio 22.0 Ratio 09/20/2016 Comp Metabolic Efi932 CALCIUM 8.7 mg/dL 09/20/2016 Comp Metabolic Gkf489 ALK PHOS 142 U/L 09/20/2016 Comp Metabolic Mwg105 AST(SGOT) 26 U/L 09/20/2016 Comp Metabolic Izt232 ALT(SGPT) 27 U/L 09/20/2016 Comp Metabolic Mve308 BILI T 0.3 mg/dL 09/20/2016 Comp Metabolic Xwt801 ALBUMIN 4.0 g/dL 09/20/2016 Comp Metabolic Bub676 TPRO 7.6 g/dL 09/20/2016 Comp Metabolic Hwo355 GLOB 3.6 g/dL 09/20/2016 Comp Metabolic Toh586 A/G Ratio 1.1 Ratio 09/20/2016 Comp Metabolic Vsj536 Osmo 294 mOsmo 09/20/2016 %Hba1C Lpd581 % HbA1c 13097- 6 6.7 % 09/20/2016 %Hba1C Bbh150 Gluc Ave 146 mg/dL 09/20/2016 Urinalysis Ord28 [...] hours from collection if refrigerated) 05/31/2016 %Hba1C Sqj230 % HbA1c 35688- 6 13.5 % 03/28/2016 %Hba1C Kkn931 Gluc Ave 341 mg/dL 03/28/2016 Tsh Ord6 hTSH II 16.02 uIU/mL 03/28/2016 Comp Metabolic Xum222 NA 133 mEq/L 03/28/2016 Comp Metabolic Bpx307 K 5.4 mEq/L 03/28/2016 Comp Metabolic Mez308 CL 102 mEq/L 03/28/2016 Comp Metabolic Bfb631 CO2 22.0 mEq/L 03/28/2016 Comp Metabolic Pgk381 ANION GAP 14 03/28/2016 Comp Metabolic Huf758 GLUCOSE 432 mg/dL 03/28/2016 Comp Metabolic Fhr704 Creat 1.9 mg/dL 03/28/2016 Comp Metabolic Vro233 eGFR 27 ml/min/1.73m2 03/28/2016 Comp Metabolic Zmp695 BUN 38 mg/dL 03/28/2016 Comp Metabolic Ssv591 B/C Ratio 19.6 Ratio 03/28/2016 Comp Metabolic Nht986 CALCIUM 8.9 mg/dL 03/28/2016 Comp Metabolic Wyh007 ALK PHOS 84 U/L 03/28/2016 Comp Metabolic Rdh915 AST(SGOT) 9 U/L 03/28/2016 Comp Metabolic Zqc091 ALT(SGPT) 6 U/L 03/28/2016 Comp Metabolic Wsj912 BILI T 0.4 mg/dL 03/28/2016 Comp Metabolic Mck686 ALBUMIN 3.6 g/dL 03/28/2016 Comp Metabolic Eda823 TPRO 6.8 g/dL 03/28/2016 Comp Metabolic Odz809 GLOB 3.2 g/dL 03/28/2016 Comp Metabolic Dyh537 A/G Ratio 1.1 Ratio 03/28/2016 Comp Metabolic Sti375 Osmo 294 mOsmo 03/28/2016 Free T4 Wro784 FREE T4 0.72 ng/dL 03/28/2016 Comp Metabolic Anf743 NA 132 mEq/L 12/22/2015 Comp Metabolic Xsy444 K 4.6 mEq/L 12/22/2015 Comp Metabolic Ufm065 CL 97 mEq/L 12/22/2015 Comp Metabolic Kxu496 CO2 24.0 mEq/L 12/22/2015 Comp Metabolic Qqr683 ANION GAP 16 12/22/2015 Comp Metabolic Dhs146 GLUCOSE 354 mg/dL 12/22/2015 Comp Metabolic Ncq787 Creat 1.8 mg/dL 12/22/2015 Comp Metabolic Ujy785 eGFR 29 ml/min/1.73m2 12/22/2015 Comp Metabolic Jki228 BUN 47 mg/dL 12/22/2015 Comp Metabolic Htg041 B/C Ratio 26.3 Ratio 12/22/2015 Comp Metabolic Ypk577 CALCIUM 9.5 mg/dL 12/22/2015 Comp Metabolic Udf753 ALK PHOS 100 U/L 12/22/2015 Comp Metabolic Ddk178 AST(SGOT) 15 U/L 12/22/2015 Comp Metabolic Bgz657 ALT(SGPT) 11 U/L 12/22/2015 Comp Metabolic Lxu041 BILI T 0.4 mg/dL 12/22/2015 Comp Metabolic Etd260 ALBUMIN 3.7 g/dL 12/22/2015 Comp Metabolic Gna685 TPRO 7.1 g/dL 12/22/2015 Comp Metabolic Thv051 GLOB 3.4 g/dL 12/22/2015 Comp Metabolic Lui968 A/G Ratio 1.1 Ratio 12/22/2015 Comp Metabolic Krq538 Osmo 291 mOsmo 12/22/2015 Microalbumin Qib512 MicroAlb 25.4 mg/dL 12/22/2015 Random Urine Protein/Creatinine Ratio Tac6471 U Prot 63.3 mg/dl 12/22/2015 Random Urine Protein/Creatinine Ratio Huh4867 U CREAT 83.0 mg/dL 12/22/2015 Random Urine Protein/Creatinine Ratio Zqa2030 R MTP/Creat Ratio 0.76 12/22/2015 %Hba1C Phl893 % HbA1c 56773- 6 11.9 % 12/21/2015 %Hba1C Wpg435 Gluc Ave 295 mg/dL 12/21/2015 Review of [...] None Full Exam - General 1995 Eyes pupils and irises Overall: pupils equal, round, reactive to light and accomodation 08/26/2018 None Full Exam - General 1995 Ears/Nose/Throat lips/teeth/gingiva Overall: benign lips 08/26/2018 None [...] 1994 Neurologic mental status Overall: oriented 03/05/2018 Full Exam - General 1994 Psychiatric orientation/consciousness [...] benign 01/02/2015 None Full Exam - General 1995 Musculoskeletal head and neck Overall: head atraumatic 01/02/2015 None Procedures Procedure Codes Date DESTRUCT PREMALG LESION CPT-4: 33361 10/07/2016 Vital Signs Date Vital 12/25/2018 Blood Pressure 1: 128/60 Code: 8480-6 BMI: 28.7 Code: 91982-5 Heart Rate 1: 68 bpm Height: 5'3" SpO2: 97% Weight: 162 lbs 10/27/2018 Blood Pressure 1: 128/68 Code: 8480-6 BMI: 27.6 Code: 56599-6 Heart Rate 1: 70 bpm Height: 5'3" SpO2: 94% Weight: 156 lbs 08/26/2018 Blood Pressure 1: 146/52 Code: 8480-6 BMI: 28.0 Code: 69485-2 Heart Rate 1: 68 bpm Height: 5'3" SpO2: 98% Weight: 158 lbs 07/20/2018 Blood Pressure 1: 144/70 Code: 8480-6 BMI: 28.3 Code: 84066-3 Heart Rate 1: 82 bpm Height: 5'3" SpO2: 100% Weight: 160 lbs 03/05/2018 Blood Pressure 1: 144/66 Code: 8480-6 BMI: 28.7 Code: 01602-9 Heart Rate 1: 83 bpm Height: 5'3" SpO2: 99% Weight: 162 lbs 10/30/2017 Blood Pressure 1: 122/58 Code: 8480-6 BMI: 30.1 Code: 66990-1 Heart Rate 1: 78 bpm Height: 5'3" SpO2: 98% Weight: 170 lbs 07/03/2017 Blood Pressure 1: 148/78 Code: 8480-6 BMI: 29.8 Code: 62878-1 Heart Rate 1: 80 bpm Height: 5'3" SpO2: 99% Weight: 168 lbs 04/03/2017 Blood Pressure 1: 144/64 Code: 8480-6 BMI: 29.1 Code: 32844-0 Heart Rate 1: 78 bpm Height: 5'3" SpO2: 98% Weight: 164 lbs 12/31/2016 Blood Pressure 1: 138/70 Code: 8480-6 BMI: 30.3 Code: 40649-2 Heart Rate 1: 84 bpm Height: 5'3" SpO2: 90% Weight: 171 lbs 10/07/2016 Blood Pressure 1: 146/78 Code: 8480-6 BMI: 29.4 Code: 85901-4 Heart Rate 1: 73 bpm Height: 5'3" SpO2: 99% Weight: 166 lbs 09/19/2016 Blood Pressure 1: 168/76 Code: 8480-6 BMI: 29.2 Code: 67580-7 Heart Rate 1: 88 bpm Height: 5'3" SpO2: 98% Weight: 165 lbs 07/08/2016 Blood Pressure 1: 120/80 Code: 8480-6 BMI: 28.3 Code: 19777-9 Heart Rate 1: 80 bpm Height: 5'3" SpO2: 99% Weight: 160 lbs 05/08/2016 Blood Pressure 1: 138/70 Code: 8480-6 BMI: 26.9 Code: 98363-8 Heart Rate 1: 93 bpm Height: 5'3" SpO2: 98% Weight: 152 lbs 03/28/2016 Blood Pressure 1: 144/74 Code: 8480-6 BMI: 27.6 Code: 62596-3 Heart Rate 1: 85 bpm Height: 5'3" SpO2: 99% Weight: 156 lbs 01/22/2016 Blood Pressure 1: 140/82 Code: 8480-6 BMI: 28.9 Code: 03444-0 Heart Rate 1: 104 bpm Height: 5'3" SpO2: 94% Weight: 163 lbs 12/21/2015 Blood Pressure 1: 140/90 Code: 8480-6 BMI: 28.7 Code: 72870-3 Heart Rate 1: 99 bpm Height: 5'3" SpO2: 96% Weight: 162 lbs 11/06/2015 Blood Pressure 1: 110/60 Code: 8480-6 BMI: 29.8 Code: 28362-6 Heart Rate 1: 93 bpm Height: 5'3" SpO2: 98% Weight: 168 lbs 10/20/2015 Blood Pressure 1: 152/62 Code: 8480-6 BMI: 29.8 Code: 37365-6 Heart Rate 1: 86 bpm Height: 5'3" SpO2: 96% Weight: 168 lbs 10/09/2015 Blood Pressure 1: 152/60 Code: 8480-6 BMI: 30.2 Code: 02335-9 Heart Rate 1: 83 bpm Height: 5'3" SpO2: 98% Weight: 170 lbs 8 oz 09/21/2015 Blood Pressure 1: 160/74 Code: 8480-6 Blood Pressure 1: 168/72 Code: 8480-6 BMI: 29.8 Code: 92759-9 Heart Rate 1: 82 bpm Height: 5'3" SpO2: 99% Weight: 168 lbs 08/22/2015 Blood Pressure 1: 170/82 Code: 8480-6 Blood Pressure 1: 178/78 Code: 8480-6 BMI: 29.2 Code: 49853-0 Heart Rate 1: 85 bpm Height: 5'3" SpO2: 99% Weight: 165 lbs 04/07/2015 Blood Pressure 1: 140/68 Code: 8480-6 BMI: 29.9 Code: 03406-4 Heart Rate 1: 81 bpm Height: 5'3" SpO2: 99% Weight: 169 lbs 01/02/2015 Blood Pressure 1: 162/72 Code: 8480-6 BMI: 30.3 Code: 25879-8 Heart Rate 1: 88 bpm Height: 5'3" [...] glucose at home, see scanned readings 10/07/2016 [facility] diabetes mellitus Pertinent Findings Denies dizziness 10/07/2016 [...] data Encounters Encounter Performer Location Codes Date ([id number]) [id number] EST. PATIENT, LEVEL IV Diagnosis: Headache[ICD10: R51] Diagnosis: Traumatic subarachnoid hemorrhage without loss of consciousness, initial encounter[ICD10: S06.6X0A] Diagnosis: Urinary tract infection, site not specified[ICD10: N39.0] Diagnosis: Diarrhea, unspecified[ICD10: R19.7] Diagnosis: Unsteadiness on feet[ICD10: R26.81] Cordelia Garg MD, [facility] CPT-4: 71537 12/25/2018 ([id number]) 09161 EST. PATIENT, LEVEL IV Diagnosis: Essential (primary) hypertension[ICD10: I10] Diagnosis: Type 2 diabetes mellitus with hyperglycemia[ICD10: E11.65] Diagnosis: Blister (nonthermal), right foot, initial encounter[ICD10: S90.821A] Riana Garg MD, [facility] CPT-4: 69501 10/27/2018 [id number] EST. 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 PATIENT, LEVEL IV Diagnosis: Type 2 diabetes mellitus with other specified complication[ICD10: E11.69] Diagnosis: Essential (primary) hypertension[ICD10: I10] Diagnosis: Other allergic rhinitis[ICD10: J30.89] Diagnosis: Chronic kidney disease, stage 4 (severe)[ICD10: N18.4] Cordelia Garg MD, [facility] CPT-4: 57432 07/20/2018 ([id number]) 59768 EST. PATIENT, LEVEL III Diagnosis: Essential (primary) hypertension[ICD10: I10] Diagnosis: Type 2 diabetes mellitus with other specified complication[ICD10: E11.69] Cordelia Garg MD, [facility] CPT-4: 23004 03/05/2018 ([id number]) 96020 EST. PATIENT, LEVEL IV Diagnosis: Type 2 diabetes mellitus with hyperglycemia[ICD10: E11.65] Diagnosis: Hypothyroidism, unspecified[ICD10: E03.9] Diagnosis: Essential (primary) hypertension[ICD10: I10] Diagnosis: Chronic kidney disease, stage 4 (severe)[ICD10: N18.4] Cordelia Garg MD, [facility] CPT-4: 67167 10/30/2017 ([id number]) 79085 EST. PATIENT, LEVEL IV Diagnosis: Hypothyroidism, unspecified[ICD10: E03.9] Diagnosis: Type 2 diabetes mellitus with hyperglycemia[ICD10: E11.65] Diagnosis: Essential (primary) hypertension[ICD10: I10] Diagnosis: Chronic kidney disease, stage 4 (severe)[ICD10: N18.4] Cordelia Garg MD, [facility] CPT-4: 78063 07/03/2017 ([id number]) 45847 EST. PATIENT, LEVEL III Diagnosis: Type 2 diabetes mellitus with hyperglycemia[ICD10: E11.65] Diagnosis: Essential (primary) hypertension[ICD10: I10] Diagnosis: Chronic kidney disease, stage 4 (severe)[ICD10: N18.4] Cordelia Garg MD [facility] CPT-4: 02093 04/03/2017 ([id number]) 65380 EST. PATIENT, LEVEL III Diagnosis: Type 2 diabetes mellitus with hyperglycemia[ICD10: E11.65] Cordelia Garg MD [facility] CPT-4: 92796 12/31/2016 ([id number]) 97433 EST. PATIENT, LEVEL II Diagnosis: Type 2 diabetes mellitus with hyperglycemia[ICD10: E11.65] Diagnosis: Essential (primary) hypertension[ICD10: I10] Diagnosis: Actinic keratosis[ICD10: L57.0] Cordelia Garg MD, [facility] CPT-4: 41127 10/07/2016 ([id number]) 22368 EST. PATIENT, LEVEL IV Diagnosis: Type 2 diabetes mellitus with hyperglycemia[ICD10: E11.65] Diagnosis: Essential (primary) hypertension[ICD10: I10] Cordelia Garg MD, [facility] CPT-4: 34060 09/19/2016 ([id number]) 26255 EST. PATIENT, LEVEL III Diagnosis: Type 2 diabetes mellitus with hyperglycemia[ICD10: E11.65] Diagnosis: Gastro-esophageal reflux disease without esophagitis[ICD10: K21.9] Cordelia Garg MD, [facility] CPT-4: 79123 07/08/2016 ([id number]) 25146 EST. PATIENT, LEVEL III Diagnosis: Type 2 diabetes mellitus with hyperglycemia[ICD10: E11.65] Riana Garg MD, [facility] CPT-4: 01593 05/08/2016 ([id number]) 37008 EST. PATIENT, LEVEL IV Diagnosis: Essential (primary) hypertension[ICD10: I10] Diagnosis: Type 2 diabetes mellitus with hyperglycemia[ICD10: E11.65] Diagnosis: Hypothyroidism, unspecified[ICD10: E03.9] Diagnosis: Chronic kidney disease, stage 4 (severe)[ICD10: N18.4] Cordelia Garg MD, [facility] CPT-4: 79321 03/28/2016 ([id number]) 86433 EST. PATIENT, LEVEL III Diagnosis: Type 2 diabetes mellitus with hyperglycemia[ICD10: E11.65] Diagnosis: Essential (primary) hypertension[ICD10: I10] Cordelia Garg MD, [facility] CPT-4: 15779 01/22/2016 ([id number]) 37934 EST. PATIENT, LEVEL IV Diagnosis: Type 2 diabetes mellitus with hyperglycemia[ICD10: E11.65] Diagnosis: Hypothyroidism, unspecified[ICD10: E03.9] Diagnosis: Essential (primary) hypertension[ICD10: I10] Diagnosis: Chronic kidney disease, stage 4 (severe)[ICD10: N18.4] Riana Garg MD, [facility] CPT-4: 12584 12/21/2015 ([id number]) 48325 EST. PATIENT, LEVEL III Diagnosis: Type 2 diabetes mellitus with hyperglycemia[ICD10: E11.65] Riana Garg MD [facility] CPT-4: 30826 11/06/2015 ([id number]) 37807 EST. PATIENT, LEVEL IV Diagnosis: Type 2 diabetes mellitus with hyperglycemia[ICD10: E11.65] Diagnosis: Essential (primary) hypertension[ICD10: I10] Cordelia Garg MD, [facility] CPT-4: 50636 10/20/2015 ([id number]) 71314 EST. PATIENT, LEVEL IV Diagnosis: Type 2 diabetes mellitus with hyperglycemia[ICD10: E11.65] Diagnosis: Essential (primary) hypertension[ICD10: I10] Diagnosis: Actinic keratosis[ICD10: L57.0] Riana Garg MD, [facility] CPT-4: 23818 10/09/2015 ([id number]) 60692 EST. PATIENT, LEVEL IV Diagnosis: Type 2 diabetes mellitus with hyperglycemia[ICD10: E11.65] Diagnosis: Essential (primary) hypertension[ICD10: I10] Riana Garg MD, [facility] CPT-4: 62296 09/21/2015 ([id number]) 72025 EST. PATIENT, LEVEL IV Diagnosis: Type 2 diabetes mellitus with hyperglycemia[ICD10: E11.65] Diagnosis: Hypothyroidism, unspecified[ICD10: E03.9] Diagnosis: Essential (primary) hypertension[ICD10: I10] Riana Garg MD, [facility] CPT-4: 99749 08/22/2015 ([id number]) 80119 EST. PATIENT, LEVEL IV Diagnosis: ESSENTIAL HYPERTENSION[ICD9: 401.9] Diagnosis: HYPERLIPIDEMIA[ICD9: 272.4] Diagnosis: DIABETES TYPE II[ICD9: 250.00] [facility] CPT-4: 54659 04/07/2015 ([id number]) OFFICE/OUTPATIENT VISIT NEW Diagnosis: ESSENTIAL HYPERTENSION[ICD9: 401.9] Diagnosis: Diabetes mellitus out of control[ICD9: 250.02] Diagnosis: HYPOTHYROIDISM[ICD9: 244.9] Diagnosis: HYPERLIPIDEMIA[ICD9: 272.4] [facility] CPT-4: 35046 01/02/2015 Plan of Care Planned Activity Notes Codes Status Date Visit Plan: Subarachnoid hemorrhage post fall -patient is not a surgical candidate -monitor symptoms UTI-recurrent -on antibiotics Gait instability-recommend walker Loose stools -start probiotic twice daily 12/25/2018 Appointment: Cordelia Kumar WPtel: [address] [place], [place] [phone] (15 min) Moderate 12/25/2018 Patient Education: Patient [...] improved control since she is at the group home. I have recommended for the patient to [...] heals. 10/27/2018 Appointment: Riana Garg WPtel: [phone] [facility] (15 min) Moderate 10/27/2018 Patient Education: Patient Medication Summary Completed 10/27/2018 Patient Education: Hypertension Completed 10/27/2018 Patient Education: Diabetes Completed 10/27/2018 Appointment: Riana Garg WPtel: [facility]5 [facility] (15 min) Moderate 10/14/2018 Patient Education: [...] effectiveness. 08/26/2018 Appointment: Cary Rivera WPtel: [phone] [phone] (30 min) Complex 08/26/2018 Patient Education: Patient [...] starting to become less controlled. CKD-patient sees nurse rn bsn-has decided not to do dialysis right now Allergies-rx for flonase 07/20/2018 Appointment: Cordelia Kumar WPtel: [phone] [phone] (15 min) Moderate 07/20/2018 Patient Education: Patient [...] less controlled. 03/05/2018 Appointment: Cordelia Kumar WPtel: [phone] [phone] (30 min) Complex 03/05/2018 Patient Education: Patient [...] voltaren gel 10/30/2017 Appointment: Cordelia Kumar WPtel: [phone] [phone] (30 min) Complex 10/30/2017 Patient Education: Patient [...] starting to become less controlled. Left thumb oixs-klxkkkv-qqbzzruxi voltaren gel if symptoms persist 07/03/2017 [facility]: [phone] ([facility] min) Complex 07/03/2017 Patient [...] to become less controlled. 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 12/31/2016 [facility]ment: [phone] (30 min) Complex 12/31/2016 Patient [...] concerns. 10/07/2016 Appointment: Cordelia Kumar WPtel: [phone] [phone] (30 min) Complex 10/07/2016 Appointment: Cordelia Kumar WPtel: [facility]5 [phone] (30 min) Complex 10/07/2016 Patient Education: Patient [...] home. 09/19/2016 Appointment: Cordelia Kumar WPtel: [phone] [facility] [place] [address] (30 min) Complex 09/19/2016 Patient Education: Patient [...] Completed 07/08/2016 Appointment: Cordelia Kumar WPtel: [phone] [phone] [place] [address] (30 min) Complex 06/20/2016 Visit Plan: Diabetes [...] stage 4- patient to make appt with [facility] Addendum: Patient noncompliant with blood sugar logs-she has been instructed to test QID but only tests daily- she did not bring her log for review today.- Patient has since moved to [facility] since this office visit. They are checking [...] stage 4- patient to make appt with [facility] 03/28/2016 Visit Plan: Hypertension - [...] stage 4- patient to make appt with [facility] Addendum: Patient noncompliant with blood sugar logs-she has been instructed to test QID but only tests daily- she did not bring her log for review today.- Patient has since moved to [facility] and they are checking her blood sugars [...] stage 4- patient to make appt with [facility] Addendum: Patient has since moved to [facility] since this office visit. They are checking her blood sugars AC and HS and she is on a sliding scale to control her d iabetes. 03/28/2016 Patient Education: Patient Medication Summary Completed 03/28/2016 Appointment: Cordelia Kumar WPtel: [facility]5 [phone] (30 min) Complex 03/26/2016 Appointment: Cordelia Kumar WPtel: [phone] [phone] (30 min) Complex 02/20/2016 Visit Plan: Diabetes [...] blood pressure readings at home. 01/22/2016 Appointment: Felix Kumarie WPtel: [facility]5 [phone] (30 min) Complex 01/22/2016 Patient Education: Patient [...] pt has been seeing a group in [facility] - but would like to be seen in [place] to avoid excessive travel. 12/21/2015 Visit Plan: [...] Completed 12/21/2015 [facility]ment[phone] (15 min) Moderate 12/18/2015 Visit Plan: DM [...] me dications. 04/07/2015 Appointment: Riana Garg WPtel: [address] [place] [id number] Follow up 04/07/2015 Patient Education: Patient Medication [...] control. 01/02/2015 Appointment: Riana [facility]arg [facility]el[phone] [place] [facility] New Patient 01/02/2015 Patient Education: [...] Group - they are located in the [facility] at [address] [place] [address] in [place] - phone number is [phone] . Hypertension - well controlled - continue [...] pt has been seeing a group in [facility] - but would like to be seen in [place] to avoid excessive travel. Next time you have an appt - please bring in your blood glucose log sheet Dr. Garg will send a referral today to the [facility] - they are located in the [facility] at [address] [place] [address] in [place] - phone number is [phone] . Hypertension - well controlled - continue [...] review today.- Patient has since moved to [facility] since this office visit. They are checking [...] disease stage 4-patient to make appt with [facility] . Hypertension - well controlled [...] disease stage 4-patient to make appt with [facility] Addendum: Patient noncompliant with blood sugar logs-she has been instructed to test QID but only tests daily-she did not bring her log for review today.- Patient has since moved to [facility] and they are checking her blood sugars [...] group Addendum: Patient has since moved to [facility] since this office visit. They are checking [...] to become less controlled. 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 Hypertension - [...] to become less controlled. 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 Diabetes Mellitus [...] starting to become less controlled. CKD-patient sees nurse rn bsn-has decided not to do dialysis right now Allergies-rx for flonase Mylanta for reflux symptoms- script sent with patient to be filled by [facility]. . Diabetes Mellitus - controlled - per [...] starting to become less controlled. Left thumb vwdm-uyzzppc-smmadgppo voltaren gel if symptoms persist . Hypertension [...] increase losartan to 100mg daily will have [facility] fax over blood sugar [...] improved control since she is at the group home. I have recommended for the patient to [...]
--- OUTSIDE RECORDS SUMMARY | 2019-02-16 18:30 | XMS REPORT | CCD ---
Author Author Riana Garg Organization Riana Garg MD, [facility] Address [address] [place] [address] Phone Care Team Providers Care Rope Walker Name Role Phone PP Unavailable CCM Unavailable Summary Purpose Interface Exchange Insurance Providers Payer name Policy type / Coverage type Covered green party ID Effective Begin Date Effective End Date WPS Medicare Part B [id number] 2015 Unknown [facility] Assistance [id number] Unknown Family history Mother Diagnosis Age At Onset Anemia Unknown Stroke Unknown Arthritis Unknown Hypertension Unknown Father Diagnosis Age At Onset Cancer Unknown Social History Social History Element Codes Description Effective Dates Marital status Unknown 01/02/2015 Number of children Unknown 3 01/02/2015 Employment Unknown Retired 01/02/[address]: 2123522 Quit over 10 years ago 25 years ago 01/02/[address]: 384835227 Never drinks alcohol 01/02/2015 Allergies, Adverse Reactions, [...] Fill Instructions Coreg 6.25 mg tablet RxNorm: 677656 1.5 Tablet(s) PO BID 12/22/2018 05/20/2019 Active lorazepam 1 mg tablet RxNorm: 204784 1 Tablet(s) PO Q6 12/16/2018 01/14/2019 Active Levemir FlexTouch U-100 Insulin 100 unit/mL (3 mL) subcutaneous pen RxNorm: 407493 4 Unit(s) SQ daily 10/27/2018 No Stop Date Active risperidone 0.5 mg tablet RxNorm: 821976 1 Tablet(s) PO BID 10/07/2018 02/03/2019 Active losartan 50 mg tablet RxNorm: 787457 1 Tablet(s) PO daily give if 115/50 or greater 10/07/2018 10/01/2019 Active Novolog U-100 Insulin aspart 100 unit/mL subcutaneous solution RxNorm: 434202 5-10 Unit(s) SQ QID per sliding scale and 8 units daily at noon 10/07/2018 No Stop Date Active risperidone 0.25 mg tablet RxNorm: 760400 1 Tablet(s) PO BID 09/09/2018 10/06/2018 Inactive Risperdal 0.25 mg tablet RxNorm: 127236 1 Tablet(s) PO BID 09/09/2018 10/06/2018 Inactive Voltaren 1 % topical gel RxNorm: 903207 2 Gram(s) TOP QID 10/30/2017 No Stop Date Active Novolog 100 unit/mL subcutaneous solution RxNorm: 539405 5-10 Unit(s) SQ QID per sliding scale 07/03/2017 10/06/2018 Inactive Novolog 100 unit/mL subcutaneous solution RxNorm: 218550 8 Unit(s) SQ at noon 09/27/2016 No Stop Date Active Novolog Flexpen 100 unit/mL subcutaneous RxNorm: 5643295 8 Unit(s) SQ at noon 09/27/2016 09/27/2016 Inactive Novolog Flexpen 100 unit/mL subcutaneous RxNorm: 9951950 8 Unit(s) SQ at noon 09/27/2016 09/26/2016 Inactive Novolog 100 unit/mL subcutaneous solution RxNorm: 977193 9 Unit(s) SQ at noon 09/27/2016 09/26/2016 Inactive Lantus 100 unit/mL subcutaneous solution RxNorm: 162305 25 Unit(s) SQ QHS 09/19/2016 10/06/2018 Inactive Coreg 6.25 mg tablet RxNorm: 939238 2 Tablet(s) PO BID 07/08/2016 09/30/2017 Inactive Lantus Solostar 100 unit/mL (3 mL) subcutaneous insulin pen RxNorm: 360734 25 Unit(s) SQ QAM and 50 Units at bedtime 04/05/2016 05/07/2016 Inactive Synthroid 150 mcg tablet RxNorm: 198588 1 Tablet(s) PO daily 04/05/2016 07/02/2017 Inactive Lantus Solostar 100 unit/mL (3 mL) subcutaneous insulin pen RxNorm: 209100 20 Unit(s) SQ QAM and 45 Units at bedtime 01/03/2016 01/07/2016 Inactive Synthroid 125 mcg tablet RxNorm: 274442 1 Tablet(s) PO daily 12/20/2015 12/19/2015 Inactive Synthroid 125 mcg tablet RxNorm: 865355 1 Tablet(s) PO daily 12/20/2015 04/04/2016 Inactive Novolog Flexpen 100 unit/mL subcutaneous RxNorm: 4773504 15 Unit(s) SQ am and 15 units @ noon BID 11/15/2015 05/07/2016 Inactive Lantus Solostar 100 unit/mL (3 mL) subcutaneous insulin pen RxNorm: 264565 10 Unit(s) SQ QAM and 40 Units at bedtime 11/15/2015 11/19/2015 Inactive increased from 25u Coreg 6.25 mg tablet RxNorm: 066545 1.5 Tablet(s) PO BID 10/09/2015 07/07/2016 Inactive Lantus Solostar 100 unit/mL (3 mL) subcutaneous insulin pen RxNorm: 666606 35 Unit(s) SQ QHS 09/26/2015 11/14/2015 Inactive increased from 25u Novolog Flexpen 100 unit/mL subcutaneous RxNorm: 9281856 12 Unit(s) SQ am and 12 units @ noon BID 09/25/2015 11/14/2015 Inactive Lantus Solostar 100 unit/mL (3 mL) subcutaneous insulin pen RxNorm: 023388 35 Unit(s) SQ QHS 09/21/2015 09/25/2015 Inactive Novolog Flexpen 100 unit/mL subcutaneous RxNorm: 5380872 12 Unit(s) SQ am and 12 units @ noon BID - dr to increase based on glucose readings [id number] 10.4 09/21/2015 09/24/2015 Inactive losartan 100 mg tablet RxNorm: 589298 1 Tablet(s) PO daily 09/21/2015 09/14/2016 Inactive Lantus Solostar 100 unit/mL (3 mL) subcutaneous insulin pen RxNorm: 910278 25 Unit(s) SQ QHS 08/29/2015 09/20/2015 Inactive Novolog Flexpen 100 unit/mL subcutaneous RxNorm: 1169555 8 Unit(s) SQ am and noon BID 08/29/2015 09/20/2015 Inactive Lantus Solostar 100 unit/mL (3 mL) subcutaneous insulin pen RxNorm: 782833 25 Unit(s) SQ QHS 08/25/2015 08/28/2015 Inactive losartan 50 mg tablet RxNorm: 131714 1 Tablet(s) PO daily 08/22/2015 09/20/2015 Inactive levothyroxine 125 mcg tablet RxNorm: 928584 1 Tablet(s) PO daily 01/23/2015 04/22/2015 Inactive Plavix 75 mg tablet RxNorm: 764861 1 Tablet(s) PO daily 01/02/2015 09/22/2016 Inactive Aranesp 25 mcg/mL (in polysorbate) Injection RxNorm: 699119 Milliliter(s) Inj 30mcg q 2 weeks 01/02/2015 05/08/2016 Inactive [SAVINGS FOR NON-COVERED DRUGS -- BIN:[id number], PCN: [id number], Group: [id number], ID# [id number], Questions: . THIS IS NOT INSURANCE.] aspirin 81 mg chewable tablet RxNorm: 489028 1 Tablet(s) PO daily 01/02/2015 05/07/2016 Inactive Coreg 6.25 mg tablet RxNorm: 113744 1 Tablet(s) PO BID 01/02/2015 10/08/2015 Inactive cyanocobalamin (vit B-12) 1,000 mcg tablet RxNorm: 228917 1 Tablet(s) PO daily No Start Date Active Fish Oil 300 mg-1,000 mg capsule RxNorm: 750205 2 Capsule(s) PO daily No Start Date Active Crestor 40 mg tablet RxNorm: 683823 1 Tablet(s) PO daily No Start Date Active Multiple Vitamins tablet RxNorm: 1 Tablet(s) PO daily No Start Date Active ferrous sulfate 325 mg (65 mg iron) tablet RxNorm: 565888 1 Tablet(s) PO daily No Start Date Active Aranesp 40 mcg/mL (in polysorbate) Injection RxNorm: 958489 Inject 1 Milliliter(s) SQ Every 2 weeks No Start Date Active loratadine 10 mg tablet RxNorm: 577781 1 Tablet(s) PO daily No Start Date Active levothyroxine 100 mcg tablet RxNorm: 483494 1 Tablet(s) PO daily No Start Date Active aspirin 81 mg capsule,delayed release RxNorm: 942955 1 Capsule(s) PO daily No Start Date Active calcium carbonate 200 mg calcium (500 mg) chewable tablet RxNorm: 372868 1-2 Tablet(s) PO daily No Start Date Active Lasix 20 mg tablet RxNorm: 775336 1 Tablet(s) PO daily No Start Date Active lactulose 20 gram oral packet RxNorm: 6900971 30 packet PO BID No Start Date Active ferrous sulfate 325 mg (65 mg iron) tablet RxNorm: 508933 1 Tablet(s) PO daily No Start Date 05/07/2016 Inactive sodium bicarbonate 650 mg tablet RxNorm: 923307 1 Tablet(s) PO BID No Start Date 10/06/2018 Inactive Aranesp 25 mcg/mL (in polysorbate) Injection RxNorm: 643958 injection No Start Date 01/01/2015 Inactive Vitamin D3 2,000 unit tablet RxNorm: 392753 1 Tablet(s) PO daily No Start Date 10/06/2018 Inactive lovastatin 40 mg tablet RxNorm: 314215 1 Tablet(s) PO daily No Start Date 05/07/2016 Inactive Lipitor 40 mg tablet RxNorm: 600184 1 Tablet(s) PO QHS No Start Date 01/01/2015 Inactive amlodipine 2.5 mg tablet RxNorm: 458497 1 Tablet(s) PO BID No Start Date 12/16/2014 Inactive sodium bicarbonate 325 mg tablet RxNorm: 229862 1 Tablet(s) PO BID No Start Date 05/07/2016 Inactive levothyroxine 150 mcg tablet RxNorm: 092240 1 Tablet(s) PO daily No Start Date 01/22/2015 Inactive Lantus Solostar 100 unit/mL (3 mL) subcutaneous insulin pen RxNorm: 034895 20 Unit(s) SQ QHS No Start Date 08/24/2015 Inactive Vitamin B12 Oral RxNorm: oral No Start Date 10/06/2018 Inactive Lantus 100 unit/mL subcutaneous solution RxNorm: 670876 30 Unit(s) SQ QHS No Start Date 09/18/2016 Inactive Novolog 100 unit/mL subcutaneous solution RxNorm: 594215 10 Unit(s) SQ BID in the AM and at noon No Start Date 07/02/2017 Inactive aspirin 81 mg tablet RxNorm: 771657 1 Tablet(s) PO daily No Start Date 01/01/2015 Inactive Levemir FlexTouch U-100 Insulin 100 unit/mL (3 mL) subcutaneous pen RxNorm: 676185 25 Unit(s) SQ daily No Start Date 10/26/2018 Inactive Novolog Flexpen 100 unit/mL subcutaneous RxNorm: 1943846 8 Unit(s) SQ am and noon BID No Start Date 08/28/2015 Inactive glimepiride 4 mg tablet RxNorm: 404175 1 Tablet(s) PO daily No Start Date 10/08/2015 Inactive Vitamin D3 2,000 unit capsule RxNorm: 795389 1 Capsule(s) PO daily No Start Date [...] U-VOL VOLUME SUFFICIENT (10mL) 12/14/2018 Urinalysis Ord28 U-Yeast NEGATIVE 12/14/2018 Urinalysis Ord28 U-Com Culture to follow 12/14/2018 Urine Culture Ucult Complete >100,000 col/ml [...] 12/02/2018 Urinalysis Ord28 U-Yeast NEGATIVE 12/02/2018 Renal Gjx740 NA 138 mEq/L 11/02/2018 Renal Dud488 K 5.0 mEq/L 11/02/2018 Renal Xfv354 CL 107 mEq/L 11/02/2018 Renal Mle055 CO2 21.0 mEq/L 11/02/2018 Renal Kwe527 ANION GAP 15 11/02/2018 Renal Kyf086 Osmo 302 mOsmo 11/02/2018 Renal Ndm739 GLUCOSE 151 mg/dL 11/02/2018 Renal Sqq679 BUN 79 mg/dL 11/02/2018 Renal Tou789 Creat 3.5 mg/dL 11/02/2018 Renal Gdj130 eGFR 14 ml/min/1.73m2 11/02/2018 Renal Egl893 B/C Ratio 22.9 Ratio 11/02/2018 Renal Njp117 CALCIUM 8.1 mg/dL 11/02/2018 Renal Dlx261 PHOS 6.2 mg/dL 11/02/2018 Renal Ynm038 ALBUMIN 3.4 g/dL 11/02/2018 Parathyroid Hormone Hnq403 PTH 145.00 pg/ml 11/02/2018 Random Urine Protein/Creatinine Ratio Pfh0404 U Prot 42.0 mg/dl 11/02/2018 Random Urine Protein/Creatinine Ratio Xsp3482 U CREAT 72.0 mg/dL 11/02/2018 Random Urine Protein/Creatinine Ratio Tno3236 R MTP/Creat Ratio 0.58 11/02/2018 Uric Acid [...] 34.3 % 11/02/2018 Cbc With Differential Ord2 [place]% 13.4 % 11/02/2018 Cbc With Differential Ord2 [...] 2.38 K/ul 11/02/2018 Cbc With Differential Ord2 [place] ABS# 0.9 K/ul 11/02/2018 Cbc With Differential Ord2 Eos ABS# 0.2 K/ul 11/02/2018 Cbc With Differential Ord2 Baso ABS# 0.0 K/ul 11/02/2018 Vitamin D 25 Oh Scl0240 VITAMIN D, 25 HYDROXY 53.24 ng/mL 11/02/2018 [...] 30.6 pg 09/16/2018 Cbc With Differential Ord2 [place]% 10.1 % 09/16/2018 Cbc With Differential Ord2 [...] 2.10 K/ul 09/16/2018 Cbc With Differential Ord2 [place] ABS# 0.5 K/ul 09/16/2018 Cbc With Differential [...] (3rd IS) 1.93 uIU/mL 08/24/2018 Free T4 Fmg700 FREE T4 1.05 ng/dL 08/24/2018 Urinalysis Ord28 [...] 29.7 pg 08/17/2018 Cbc With Differential Ord2 [place]% 9.8 % 08/17/2018 Cbc With Differential Ord2 [...] 2.14 K/ul 08/17/2018 Cbc With Differential Ord2 [place] ABS# 0.7 K/ul 08/17/2018 Cbc With Differential Ord2 Eos ABS# 0.2 K/ul 08/17/2018 Cbc With Differential Ord2 Baso ABS# 0.0 K/ul 08/17/2018 Comp Metabolic Ujl980 NA 143 mEq/L 04/14/2018 Comp Metabolic Cey455 K 4.6 mEq/L 04/14/2018 Comp Metabolic Mea912 CL 108 mEq/L 04/14/2018 Comp Metabolic Ljx951 CO2 23.0 mEq/L 04/14/2018 Comp Metabolic Hyb481 ANION GAP 17 04/14/2018 Comp Metabolic Ydb337 GLUCOSE 54 mg/dL 04/14/2018 Comp Metabolic Tfm074 Creat 2.7 mg/dL 04/14/2018 Comp Metabolic Jqq907 eGFR 18 ml/min/1.73m2 04/14/2018 Comp Metabolic Bdh731 BUN 45 mg/dL 04/14/2018 Comp Metabolic Rwi335 B/C Ratio 16.9 Ratio 04/14/2018 Comp Metabolic Ttg748 CALCIUM 8.3 mg/dL 04/14/2018 Comp Metabolic Vmx134 ALK PHOS 113 U/L 04/14/2018 Comp Metabolic Oif280 AST(SGOT) 31 U/L 04/14/2018 Comp Metabolic Zdj207 ALT(SGPT) 33 U/L 04/14/2018 Comp Metabolic Iqz680 BILI T 0.5 mg/dL 04/14/2018 Comp Metabolic Atk172 ALBUMIN 3.6 g/dL 04/14/2018 Comp Metabolic Lww958 TPRO 6.5 g/dL 04/14/2018 Comp Metabolic Pkf707 GLOB 2.9 g/dL 04/14/2018 Comp Metabolic Yni086 A/G Ratio 1.2 Ratio 04/14/2018 Comp Metabolic Qwh397 Osmo 294 mOsmo 04/14/2018 Lipid Ord30 CHOL [...] Ord28 U-Com Culture to follow 01/21/2018 %Hba1C Lrs376 % HbA1c 66689- 6 7.4 % 11/03/2017 %Hba1C Amp452 Gluc Ave 166 mg/dL 11/03/2017 Urine Culture [...] 26.3 pg 09/20/2016 Cbc With Differential Ord2 [place]% 11.3 % 09/20/2016 Cbc With Differential Ord2 [...] 1.08 K/ul 09/20/2016 Cbc With Differential Ord2 [place] ABS# 0.5 K/ul 09/20/2016 Cbc With Differential Ord2 Eos ABS# 0.2 K/ul 09/20/2016 Cbc With Differential Ord2 Baso ABS# 0.1 K/ul 09/20/2016 Comp Metabolic Yml274 NA 141 mEq/L 09/20/2016 Comp Metabolic Gxd791 K 5.9 Result Verified By Repeat Analysis mEq/L 09/20/2016 Comp Metabolic Kyu746 CL 110 mEq/L 09/20/2016 Comp Metabolic Vvf830 CO2 23.0 mEq/L 09/20/2016 Comp Metabolic Tlr405 ANION GAP 14 09/20/2016 Comp Metabolic Mot802 GLUCOSE 101 mg/dL 09/20/2016 Comp Metabolic Kxl384 Creat 2.2 mg/dL 09/20/2016 Comp Metabolic Rux445 eGFR 23 ml/min/1.73m2 09/20/2016 Comp Metabolic Hzv312 BUN 49 mg/dL 09/20/2016 Comp Metabolic Ywl161 B/C Ratio 22.0 Ratio 09/20/2016 Comp Metabolic Uza570 CALCIUM 8.7 mg/dL 09/20/2016 Comp Metabolic Cal324 ALK PHOS 142 U/L 09/20/2016 Comp Metabolic Zez365 AST(SGOT) 26 U/L 09/20/2016 Comp Metabolic Mwc390 ALT(SGPT) 27 U/L 09/20/2016 Comp Metabolic Tcc767 BILI T 0.3 mg/dL 09/20/2016 Comp Metabolic Brm201 ALBUMIN 4.0 g/dL 09/20/2016 Comp Metabolic Sif079 TPRO 7.6 g/dL 09/20/2016 Comp Metabolic Qck904 GLOB 3.6 g/dL 09/20/2016 Comp Metabolic Ffg109 A/G Ratio 1.1 Ratio 09/20/2016 Comp Metabolic Yhh803 Osmo 294 mOsmo 09/20/2016 %Hba1C Zrp910 % HbA1c 48581- 6 6.7 % 09/20/2016 %Hba1C Qkb358 Gluc Ave 146 mg/dL 09/20/2016 Urinalysis Ord28 [...] hours from collection if refrigerated) 05/31/2016 %Hba1C Rhx952 % HbA1c 53555- 6 13.5 % 03/28/2016 %Hba1C Gfq413 Gluc Ave 341 mg/dL 03/28/2016 Tsh Ord6 hTSH II 16.02 uIU/mL 03/28/2016 Comp Metabolic Jtn721 NA 133 mEq/L 03/28/2016 Comp Metabolic Cbr607 K 5.4 mEq/L 03/28/2016 Comp Metabolic Ewe081 CL 102 mEq/L 03/28/2016 Comp Metabolic Qvr099 CO2 22.0 mEq/L 03/28/2016 Comp Metabolic Bze168 ANION GAP 14 03/28/2016 Comp Metabolic Sje376 GLUCOSE 432 mg/dL 03/28/2016 Comp Metabolic Ryx174 Creat 1.9 mg/dL 03/28/2016 Comp Metabolic Vuy625 eGFR 27 ml/min/1.73m2 03/28/2016 Comp Metabolic Pqf493 BUN 38 mg/dL 03/28/2016 Comp Metabolic Qps386 B/C Ratio 19.6 Ratio 03/28/2016 Comp Metabolic Sfk845 CALCIUM 8.9 mg/dL 03/28/2016 Comp Metabolic Wvr442 ALK PHOS 84 U/L 03/28/2016 Comp Metabolic Imd379 AST(SGOT) 9 U/L 03/28/2016 Comp Metabolic Gyp453 ALT(SGPT) 6 U/L 03/28/2016 Comp Metabolic Tlw242 BILI T 0.4 mg/dL 03/28/2016 Comp Metabolic Rza820 ALBUMIN 3.6 g/dL 03/28/2016 Comp Metabolic Vdc324 TPRO 6.8 g/dL 03/28/2016 Comp Metabolic Kum928 GLOB 3.2 g/dL 03/28/2016 Comp Metabolic Pkn368 A/G Ratio 1.1 Ratio 03/28/2016 Comp Metabolic Rtz526 Osmo 294 mOsmo 03/28/2016 Free T4 Wiy414 FREE T4 0.72 ng/dL 03/28/2016 Comp Metabolic Jii560 NA 132 mEq/L 12/22/2015 Comp Metabolic Nqq098 K 4.6 mEq/L 12/22/2015 Comp Metabolic Swy716 CL 97 mEq/L 12/22/2015 Comp Metabolic Lex156 CO2 24.0 mEq/L 12/22/2015 Comp Metabolic Ufa285 ANION GAP 16 12/22/2015 Comp Metabolic Ecv884 GLUCOSE 354 mg/dL 12/22/2015 Comp Metabolic Hxo774 Creat 1.8 mg/dL 12/22/2015 Comp Metabolic Yaw786 eGFR 29 ml/min/1.73m2 12/22/2015 Comp Metabolic Olx794 BUN 47 mg/dL 12/22/2015 Comp Metabolic Ohm217 B/C Ratio 26.3 Ratio 12/22/2015 Comp Metabolic Jtz729 CALCIUM 9.5 mg/dL 12/22/2015 Comp Metabolic Gbh257 ALK PHOS 100 U/L 12/22/2015 Comp Metabolic Utw922 AST(SGOT) 15 U/L 12/22/2015 Comp Metabolic Usu855 ALT(SGPT) 11 U/L 12/22/2015 Comp Metabolic Ikt396 BILI T 0.4 mg/dL 12/22/2015 Comp Metabolic Ggs580 ALBUMIN 3.7 g/dL 12/22/2015 Comp Metabolic Iim356 TPRO 7.1 g/dL 12/22/2015 Comp Metabolic Pwv127 GLOB 3.4 g/dL 12/22/2015 Comp Metabolic Bse074 A/G Ratio 1.1 Ratio 12/22/2015 Comp Metabolic Imc831 Osmo 291 mOsmo 12/22/2015 Microalbumin Qtd364 MicroAlb 25.4 mg/dL 12/22/2015 Random Urine Protein/Creatinine Ratio Fjw5485 U Prot 63.3 mg/dl 12/22/2015 Random Urine Protein/Creatinine Ratio Fua4642 U CREAT 83.0 mg/dL 12/22/2015 Random Urine Protein/Creatinine Ratio Mkw1043 R MTP/Creat Ratio 0.76 12/22/2015 %Hba1C Pxo592 % HbA1c 35957- 6 11.9 % 12/21/2015 %Hba1C Pwv644 Gluc Ave 295 mg/dL 12/21/2015 Review of [...] Procedure Codes Date DESTRUCT PREMALG LESION CPT-4: 13337 10/07/2016 Vital Signs Date Vital 12/25/2018 Blood Pressure 1: 128/60 Code: 8480-6 BMI: 28.7 Code: 00746-6 Heart Rate 1: 68 bpm Height: 5'3" SpO2: 97% Weight: 162 lbs 10/27/2018 Blood Pressure 1: 128/68 Code: 8480-6 BMI: 27.6 Code: 64901-0 Heart Rate 1: 70 bpm Height: 5'3" SpO2: 94% Weight: 156 lbs 08/26/2018 Blood Pressure 1: 146/52 Code: 8480-6 BMI: 28.0 Code: 23811-9 Heart Rate 1: 68 bpm Height: 5'3" SpO2: 98% Weight: 158 lbs 07/20/2018 Blood Pressure 1: 144/70 Code: 8480-6 BMI: 28.3 Code: 70222-2 Heart Rate 1: 82 bpm Height: 5'3" SpO2: 100% Weight: 160 lbs 03/05/2018 Blood Pressure 1: 144/66 Code: 8480-6 BMI: 28.7 Code: 61359-8 Heart Rate 1: 83 bpm Height: 5'3" SpO2: 99% Weight: 162 lbs 10/30/2017 Blood Pressure 1: 122/58 Code: 8480-6 BMI: 30.1 Code: 87974-7 Heart Rate 1: 78 bpm Height: 5'3" SpO2: 98% Weight: 170 lbs 07/03/2017 Blood Pressure 1: 148/78 Code: 8480-6 BMI: 29.8 Code: 46182-6 Heart Rate 1: 80 bpm Height: 5'3" SpO2: 99% Weight: 168 lbs 04/03/2017 Blood Pressure 1: 144/64 Code: 8480-6 BMI: 29.1 Code: 15216-3 Heart Rate 1: 78 bpm Height: 5'3" SpO2: 98% Weight: 164 lbs 12/31/2016 Blood Pressure 1: 138/70 Code: 8480-6 BMI: 30.3 Code: 65569-7 Heart Rate 1: 84 bpm Height: 5'3" SpO2: 90% Weight: 171 lbs 10/07/2016 Blood Pressure 1: 146/78 Code: 8480-6 BMI: 29.4 Code: 45747-6 Heart Rate 1: 73 bpm Height: 5'3" SpO2: 99% Weight: 166 lbs 09/19/2016 Blood Pressure 1: 168/76 Code: 8480-6 BMI: 29.2 Code: 51050-7 Heart Rate 1: 88 bpm Height: 5'3" SpO2: 98% Weight: 165 lbs 07/08/2016 Blood Pressure 1: 120/80 Code: 8480-6 BMI: 28.3 Code: 50243-8 Heart Rate 1: 80 bpm Height: 5'3" SpO2: 99% Weight: 160 lbs 05/08/2016 Blood Pressure 1: 138/70 Code: 8480-6 BMI: 26.9 Code: 96405-5 Heart Rate 1: 93 bpm Height: 5'3" SpO2: 98% Weight: 152 lbs 03/28/2016 Blood Pressure 1: 144/74 Code: 8480-6 BMI: 27.6 Code: 17493-9 Heart Rate 1: 85 bpm Height: 5'3" SpO2: 99% Weight: 156 lbs 01/22/2016 Blood Pressure 1: 140/82 Code: 8480-6 BMI: 28.9 Code: 70451-9 Heart Rate 1: 104 bpm Height: 5'3" SpO2: 94% Weight: 163 lbs 12/21/2015 Blood Pressure 1: 140/90 Code: 8480-6 BMI: 28.7 Code: 31372-2 Heart Rate 1: 99 bpm Height: 5'3" SpO2: 96% Weight: 162 lbs 11/06/2015 Blood Pressure 1: 110/60 Code: 8480-6 BMI: 29.8 Code: 26910-3 Heart Rate 1: 93 bpm Height: 5'3" SpO2: 98% Weight: 168 lbs 10/20/2015 Blood Pressure 1: 152/62 Code: 8480-6 BMI: 29.8 Code: 44701-9 Heart Rate 1: 86 bpm Height: 5'3" SpO2: 96% Weight: 168 lbs 10/09/2015 Blood Pressure 1: 152/60 Code: 8480-6 BMI: 30.2 Code: 74420-2 Heart Rate 1: 83 bpm Height: 5'3" SpO2: 98% Weight: 170 lbs 8 oz 09/21/2015 Blood Pressure 1: 160/74 Code: 8480-6 Blood Pressure 1: 168/72 Code: 8480-6 BMI: 29.8 Code: 31789-8 Heart Rate 1: 82 bpm Height: 5'3" SpO2: 99% Weight: 168 lbs 08/22/2015 Blood Pressure 1: 170/82 Code: 8480-6 Blood Pressure 1: 178/78 Code: 8480-6 BMI: 29.2 Code: 02194-0 Heart Rate 1: 85 bpm Height: 5'3" SpO2: 99% Weight: 165 lbs 04/07/2015 Blood Pressure 1: 140/68 Code: 8480-6 BMI: 29.9 Code: 31173-1 Heart Rate 1: 81 bpm Height: 5'3" SpO2: 99% Weight: 169 lbs 01/02/2015 Blood Pressure 1: 162/72 Code: 8480-6 BMI: 30.3 Code: 93238-7 Heart Rate 1: 88 bpm Height: 5'3" [...] glucose at home, see scanned readings 10/07/2016 [facility] diabetes mellitus Pertinent Findings Denies dizziness [...] data Encounters Encounter Performer Location Codes Date ([id number]) [id number] EST. PATIENT, LEVEL IV Diagnosis: Headache[ICD10: R51] Diagnosis: Traumatic subarachnoid hemorrhage without loss of consciousness, initial encounter[ICD10: S06.6X0A] Diagnosis: Urinary tract infection, site not specified[ICD10: N39.0] Diagnosis: Diarrhea, unspecified[ICD10: R19.7] Diagnosis: Unsteadiness on feet[ICD10: R26.81] Cordelia Garg MD, [facility] CPT-4: 63005 12/25/2018 ([id number]) 17035 EST. PATIENT, LEVEL IV Diagnosis: Essential (primary) hypertension[ICD10: I10] Diagnosis: Type 2 diabetes mellitus with hyperglycemia[ICD10: E11.65] Diagnosis: Blister (nonthermal), right foot, initial encounter[ICD10: S90.821A] Riana Garg MD, [facility] CPT-4: 94022 10/27/2018 [id number] EST. 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 CPT-4: 51508 08/26/2018 ([id number]) 20127 EST. PATIENT, LEVEL IV Diagnosis: Type 2 diabetes mellitus with other specified complication[ICD10: E11.69] Diagnosis: Essential (primary) hypertension[ICD10: I10] Diagnosis: Other allergic rhinitis[ICD10: J30.89] Diagnosis: Chronic kidney disease, stage 4 (severe)[ICD10: N18.4] Cordelia Garg MD, [facility] CPT-4: 17016 07/20/2018 ([id number]) 07212 EST. PATIENT, LEVEL III Diagnosis: Essential (primary) hypertension[ICD10: I10] Diagnosis: Type 2 diabetes mellitus with other specified complication[ICD10: E11.69] Cordelia Garg MD, [facility] CPT-4: 85556 03/05/2018 ([id number]) 34882 EST. PATIENT, LEVEL IV Diagnosis: Type 2 diabetes mellitus with hyperglycemia[ICD10: E11.65] Diagnosis: Hypothyroidism, unspecified[ICD10: E03.9] Diagnosis: Essential (primary) hypertension[ICD10: I10] Diagnosis: Chronic kidney disease, stage 4 (severe)[ICD10: N18.4] Cordelia Garg MD, [facility] CPT-4: 42781 10/30/2017 ([id number]) 56263 EST. PATIENT, LEVEL IV Diagnosis: Hypothyroidism, unspecified[ICD10: E03.9] Diagnosis: Type 2 diabetes mellitus with hyperglycemia[ICD10: E11.65] Diagnosis: Essential (primary) hypertension[ICD10: I10] Diagnosis: Chronic kidney disease, stage 4 (severe)[ICD10: N18.4] Cordelia Garg MD, [facility] CPT-4: 99283 07/03/2017 ([id number]) 31627 EST. PATIENT, LEVEL III Diagnosis: Type 2 diabetes mellitus with hyperglycemia[ICD10: E11.65] Diagnosis: Essential (primary) hypertension[ICD10: I10] Diagnosis: Chronic kidney disease, stage 4 (severe)[ICD10: N18.4] Cordelia Garg MD [facility] CPT-4: 58679 04/03/2017 ([id number]) 66242 EST. PATIENT, LEVEL III Diagnosis: Type 2 diabetes mellitus with hyperglycemia[ICD10: E11.65] Cordelia Garg MD [facility] CPT-4: 55680 12/31/2016 ([id number]) 56618 EST. PATIENT, LEVEL II Diagnosis: Type 2 diabetes mellitus with hyperglycemia[ICD10: E11.65] Diagnosis: Essential (primary) hypertension[ICD10: I10] Diagnosis: Actinic keratosis[ICD10: L57.0] Cordelia Garg MD, [facility] CPT-4: 76306 10/07/2016 ([id number]) 37908 EST. PATIENT, LEVEL IV Diagnosis: Type 2 diabetes mellitus with hyperglycemia[ICD10: E11.65] Diagnosis: Essential (primary) hypertension[ICD10: I10] Cordelia Garg MD, [facility] CPT-4: 13053 09/19/2016 ([id number]) 45323 EST. PATIENT, LEVEL III Diagnosis: Type 2 diabetes mellitus with hyperglycemia[ICD10: E11.65] Diagnosis: Gastro-esophageal reflux disease without esophagitis[ICD10: K21.9] Cordelia Garg MD, [facility] CPT-4: 39181 07/08/2016 ([id number]) 63525 EST. PATIENT, LEVEL III Diagnosis: Type 2 diabetes mellitus with hyperglycemia[ICD10: E11.65] Riana Garg MD, [facility] CPT-4: 77585 05/08/2016 ([id number]) 71222 EST. PATIENT, LEVEL IV Diagnosis: Essential (primary) hypertension[ICD10: I10] Diagnosis: Type 2 diabetes mellitus with hyperglycemia[ICD10: E11.65] Diagnosis: Hypothyroidism, unspecified[ICD10: E03.9] Diagnosis: Chronic kidney disease, stage 4 (severe)[ICD10: N18.4] Cordelia Garg MD, [facility] CPT-4: 19650 03/28/2016 ([id number]) 43482 EST. PATIENT, LEVEL III Diagnosis: Type 2 diabetes mellitus with hyperglycemia[ICD10: E11.65] Diagnosis: Essential (primary) hypertension[ICD10: I10] Cordelia Garg MD, [facility] CPT-4: 11034 01/22/2016 ([id number]) 93687 EST. PATIENT, LEVEL IV Diagnosis: Type 2 diabetes mellitus with hyperglycemia[ICD10: E11.65] Diagnosis: Hypothyroidism, unspecified[ICD10: E03.9] Diagnosis: Essential (primary) hypertension[ICD10: I10] Diagnosis: Chronic kidney disease, stage 4 (severe)[ICD10: N18.4] Riana Garg MD, [facility] CPT-4: 75187 12/21/2015 ([id number]) 03033 EST. PATIENT, LEVEL III Diagnosis: Type 2 diabetes mellitus with hyperglycemia[ICD10: E11.65] Riana Garg MD [facility] CPT-4: 71158 11/06/2015 ([id number]) 11000 EST. PATIENT, LEVEL IV Diagnosis: Type 2 diabetes mellitus with hyperglycemia[ICD10: E11.65] Diagnosis: Essential (primary) hypertension[ICD10: I10] Cordelia Garg MD, [facility] CPT-4: 55548 10/20/2015 ([id number]) 88321 EST. PATIENT, LEVEL IV Diagnosis: Type 2 diabetes mellitus with hyperglycemia[ICD10: E11.65] Diagnosis: Essential (primary) hypertension[ICD10: I10] Diagnosis: Actinic keratosis[ICD10: L57.0] Riana Garg MD, [facility] CPT-4: 09858 10/09/2015 ([id number]) [id number] EST. PATIENT, LEVEL IV Diagnosis: Type 2 diabetes mellitus with hyperglycemia[ICD10: E11.65] Diagnosis: Essential (primary) hypertension[ICD10: I10] Riana Garg MD, [facility] CPT-4: 58744 09/21/2015 ([id number]) [id number] EST. PATIENT, LEVEL IV Diagnosis: Type 2 diabetes mellitus with hyperglycemia[ICD10: E11.65] Diagnosis: Hypothyroidism, unspecified[ICD10: E03.9] Diagnosis: Essential (primary) hypertension[ICD10: I10] Riana Garg MD, [facility] CPT-4: 57306 08/22/2015 ([id number]) 95001 EST. PATIENT, LEVEL IV Diagnosis: ESSENTIAL HYPERTENSION[ICD9: 401.9] Diagnosis: HYPERLIPIDEMIA[ICD9: 272.4] Diagnosis: DIABETES TYPE II[ICD9: 250.00] [facility] CPT-4: 58756 04/07/2015 ([id number]) OFFICE/OUTPATIENT VISIT NEW Diagnosis: ESSENTIAL HYPERTENSION[ICD9: 401.9] Diagnosis: Diabetes mellitus out of control[ICD9: 250.02] Diagnosis: HYPOTHYROIDISM[ICD9: 244.9] Diagnosis: HYPERLIPIDEMIA[ICD9: 272.4] Riana Garg MD, [facility] CPT-4: 84644 01/02/2015 Plan of Care Planned Activity Notes Codes Status Date Visit Plan: Subarachnoid hemorrhage post fall -patient is not a surgical candidate -monitor symptoms UTI-recurrent -on antibiotics Gait instability-recommend walker Loose stools -start probiotic twice daily 12/25/2018 Patient Education: Patient Medication Summary Completed [...] [facility] I have recommended for the patient to [...] of heals. 10/27/2018 Appointment: Riana Garg WPtel: [address] [place], [place] [address] [place] (15 min) Moderate 10/27/2018 Patient Education: Patient Medication Summary Completed 10/27/2018 Patient Education: Hypertension Completed 10/27/2018 Patient Education: Diabetes Completed 10/27/2018 Appointment: [facility] [place] (15 min) Moderate 10/14/2018 Patient Education: Patient [...] for effectiveness. 08/26/2018 [facility]ment[phone] [facility] [place] (30 min) Complex 08/26/2018 Patient Education: Patient [...] starting to become less controlled. CKD-patient sees [facility]-has decided not to do dialysis right now Allergies-rx for flonase 07/20/2018 Appointment: [facility] [phone] [place] (15 min) Moderate 07/20/2018 Patient [...] less controlled. 03/05/2018 Appointment: Cordelia Kumar WPtel: [phone] (30 min) [facility] 03/05/2018 Patient Education: Patient Medication Summary Completed [...] voltaren gel 10/30/2017 Appointment: Cordelia Kumar WPtel: [phone] (30 min) Complex 10/30/2017 Patient Education: Patient [...] starting to become less controlled. Left thumb cuvn-ningklj-hprtlepji voltaren gel if symptoms persist 07/03/2017 Appointment: Cordelia Kumar WPtel: [phone] (30 min) Complex 07/03/2017 Patient Education: [...] to become less controlled. 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 Chronic renal disease-sees [facility]ie[facility] developer and also department clerk for management of anemia 04/03/2017 Appointment: Cordelia Kumar WPtel: [phone] (30 min) Complex 04/03/2017 Patient Education: Patient [...] controlled. 12/31/2016 Appointment: Cordelia Kumar WPtel: [phone] [phone] [place] [address] (30 min) Complex 12/31/2016 Patient Education: Patient [...] any other acute concerns. 10/07/2016 Appointment: Cordelia Kumarl: [address] [facility] [place] [address] (30 min) Complex 10/07/2016 Appointment: Cordelia Kumarl: [address] [id number] (30 min) Complex 10/07/2016 Patient Education: [...] pressure readings at home. 09/19/2016 Appointment: Cordelia Kumarl: [address] [id number] (30 min) Complex 09/19/2016 Patient Education: [...] Summary Completed 07/08/2016 Appointment: Cordelia Kumar WPtel: [phone] [phone] (30 min) Complex 06/20/2016 Visit Plan: Diabetes [...] stage 4- patient to make appt with [facility] Addendum: Patient noncompliant with blood sugar logs-she has been instructed to test QID but only tests daily- she did not bring her log for review today.- Patient has since moved to [facility] since this office visit. They [...] stage 4- patient to make appt with [facility] 03/28/2016 Visit Plan: Hypertension - [...] stage 4- patient to make appt with [facility] Addendum: Patient noncompliant with blood sugar logs-she has been instructed to test QID but only tests daily- she did not bring her log for review today.- Patient has since moved to [facility] and they are checking her [...] stage 4- patient to make appt with [facility] Addendum: Patient has since moved to [facility] since this office visit. They are checking her blood sugars AC and HS and she is on a sliding scale to control her d iabetes. 03/28/2016 Patient Education: Patient Medication Summary Completed 03/28/2016 [facility]ment: Cord[facility]el[facility] [phone] [phone] (30 min) Complex 03/26/2016 App[facility]ment: Cord[facility]el[facility] [address] [phone] (30 min) Complex 02/20/2016 Visit Plan: [...] home. 01/22/2016 Appointment: [facility]el[facility] [address] [phone] (30 min) Complex 01/22/2016 Patient Education: [...] pt has been seeing a group in [facility] - but would like to be seen in [place] to avoid excessive travel. 12/21/2015 Visit Plan: [...] Completed 12/21/2015 Appointment: Riana Garg WPtel: [facility] [facility] (15 min) Moderate 12/18/2015 Visit Plan: DM [...] me dications. 04/07/2015 Appointment: Riana Garg WPtel: [address] [place], [place] [id number] Follow up 04/07/2015 Patient Education: Patient Medication [...] of control. 01/02/2015 Appointment: Riana Garg WPtel: [phone] [facility] [place] ([place]) New Patient 01/02/2015 Patient Education: [...] Group - they are located in the [facility] at [address] [place] [address] in [place] - phone number is [phone] . Hypertension - well controlled - continue [...] pt has been seeing a group in [facility] - but would like to be seen in [place] to avoid excessive travel. Next time you have an appt - please bring in your blood glucose log sheet Dr. Garg will send a referral today to the [facility] - they are located in the [facility] at [address] [facility] in [place] - phone number is [phone] . Hypertension - well controlled - continue [...] disease stage 4-patient to make appt with [facility] Addendum: Patient noncompliant with blood sugar logs-she has been instructed to test QID but only tests daily-she did not bring her log for review today.- Patient has since moved to [facility] since this office visit. They [...] disease stage 4-patient to make appt with [facility] . Hypertension - well controlled [...] disease stage 4-patient to make appt with [facility] Addendum: Patient noncompliant with blood sugar logs-she has been instructed to test QID but only tests daily-she did not bring her log for review today.- Patient has since moved to [facility] and they are checking her [...] group Addendum: Patient has since moved to [facility] since this office visit. They [...] to become less controlled. Chronic renal disease-sees [facility]ie[facility] developer and also department clerk for management of anemia . Hypertension - [...] to become less controlled. Chronic renal disease-sees [facility] developer and also department clerk for management of anemia . Diabetes [...] starting to become less controlled. CKD-patient sees [facility]-has decided not to do dialysis right now [...] starting to become less controlled. Left thumb puhl-utqlrgu-xoxekexdr voltaren gel if symptoms persist . Hypertension [...] increase losartan to 100mg daily will have [facility] fax [...] [facility]. I have recommended for the patient to [...]
[2019-02-16] MEDS ORDERED: LIDOCAINE/EPI 2% 1:100,00 (XYLOCAINE) 20 ML VIAL ONE (18:31)
--- OUTSIDE RECORDS SUMMARY | 2019-02-16 18:37 | XMS REPORT | CCD ---
Author Author [facility] Organization [facility] Address [address] [place] [address] Phone Care Team Providers Care Mason Apprentice Name Role Phone PP Unavailable CCM Unavailable Summary Purpose Interface Exchange Insurance Providers Payer name Policy type / Coverage type Covered alliance party ID Effective Begin Date Effective End Date WPS Medicare Part B [id number] 2015 Unknown [facility] Assistance [id number] 2015 Unknown Family history Mother Diagnosis Age At Onset Anemia Unknown Stroke Unknown Arthritis Unknown Hypertension Unknown Father Diagnosis Age At Onset Cancer Unknown Social History Social History Element Codes Description Effective Dates Marital status Unknown 01/02/2015 Number of children Unknown 3 01/02/2015 Employment Unknown Retired 01/02/[address]: 8715882 Quit over 10 years ago 25 years ago 01/02/[address]: 904529718 Never drinks alcohol 01/02/2015 Allergies, Adverse Reactions, Alerts Substance Reaction Codes Entered Date Inactivated Date Status * NO KNOWN FOOD ALLERGIES Unknown 01/02/2015 No Inactive Date Active SULFA(SULFONAMIDE ANTIBIOTICS) Unknown 01/02/2015 No Inactive Date Active Past Medical History Illness Codes Condition Status Onset Date Resolved Date Blister (nonthermal), right foot, initial encounter ICD-9: [...] Problems Condition Codes Effective Dates Condition Status Blister (nonthermal), right foot, initial encounter ICD-9: [...] Fill Instructions Coreg 6.25 mg tablet RxNorm: 199977 1.5 Tablet(s) PO BID 12/22/2018 05/20/2019 Active lorazepam 1 mg tablet RxNorm: 657126 1 Tablet(s) PO Q6 12/16/2018 01/14/2019 Active Levemir FlexTouch U-100 Insulin 100 unit/mL (3 mL) subcutaneous pen RxNorm: 957527 4 Unit(s) SQ daily 10/27/2018 No Stop Date Active risperidone 0.5 mg tablet RxNorm: 710279 1 Tablet(s) PO BID 10/07/2018 02/03/2019 Active losartan 50 mg tablet RxNorm: 194519 1 Tablet(s) PO daily give if 115/50 or greater 10/07/2018 10/01/2019 Active Novolog U-100 Insulin aspart 100 unit/mL subcutaneous solution RxNorm: 626219 5-10 Unit(s) SQ QID per sliding scale and 8 units daily at noon 10/07/2018 No Stop Date Active risperidone 0.25 mg tablet RxNorm: 161154 1 Tablet(s) PO BID 09/09/2018 10/06/2018 Inactive Risperdal 0.25 mg tablet RxNorm: 094387 1 Tablet(s) PO BID 09/09/2018 10/06/2018 Inactive Voltaren 1 % topical gel RxNorm: 528818 2 Gram(s) TOP QID 10/30/2017 No Stop Date Active Novolog 100 unit/mL subcutaneous solution RxNorm: 254512 5-10 Unit(s) SQ QID per sliding scale 07/03/2017 10/06/2018 Inactive Novolog 100 unit/mL subcutaneous solution RxNorm: 655658 8 Unit(s) SQ at noon 09/27/2016 No Stop Date Active Novolog Flexpen 100 unit/mL subcutaneous RxNorm: 7571408 8 Unit(s) SQ at noon 09/27/2016 09/27/2016 Inactive Novolog Flexpen 100 unit/mL subcutaneous RxNorm: 5448374 8 Unit(s) SQ at noon 09/27/2016 09/26/2016 Inactive Novolog 100 unit/mL subcutaneous solution RxNorm: 336952 9 Unit(s) SQ at noon 09/27/2016 09/26/2016 Inactive Lantus 100 unit/mL subcutaneous solution RxNorm: 898540 25 Unit(s) SQ QHS 09/19/2016 10/06/2018 Inactive Coreg 6.25 mg tablet RxNorm: 023705 2 Tablet(s) PO BID 07/08/2016 09/30/2017 Inactive Lantus Solostar 100 unit/mL (3 mL) subcutaneous insulin pen RxNorm: 245271 25 Unit(s) SQ QAM and 50 Units at bedtime 04/05/2016 05/07/2016 Inactive Synthroid 150 mcg tablet RxNorm: 717971 1 Tablet(s) PO daily 04/05/2016 07/02/2017 Inactive Lantus Solostar 100 unit/mL (3 mL) subcutaneous insulin pen RxNorm: 324408 20 Unit(s) SQ QAM and 45 Units at bedtime 01/03/2016 01/07/2016 Inactive Synthroid 125 mcg tablet RxNorm: 404721 1 Tablet(s) PO daily 12/20/2015 12/19/2015 Inactive Synthroid 125 mcg tablet RxNorm: 268445 1 Tablet(s) PO daily 12/20/2015 04/04/2016 Inactive Novolog Flexpen 100 unit/mL subcutaneous RxNorm: 4143183 15 Unit(s) SQ am and 15 units @ noon BID 11/15/2015 05/07/2016 Inactive Lantus Solostar 100 unit/mL (3 mL) subcutaneous insulin pen RxNorm: 449921 10 Unit(s) SQ QAM and 40 Units at bedtime 11/15/2015 11/19/2015 Inactive increased from 25u Coreg 6.25 mg tablet RxNorm: 741938 1.5 Tablet(s) PO BID 10/09/2015 07/07/2016 Inactive Lantus Solostar 100 unit/mL (3 mL) subcutaneous insulin pen RxNorm: 197451 35 Unit(s) SQ QHS 09/26/2015 11/14/2015 Inactive increased from 25u Novolog Flexpen 100 unit/mL subcutaneous RxNorm: 2087381 12 Unit(s) SQ am and 12 units @ noon BID 09/25/2015 11/14/2015 Inactive Lantus Solostar 100 unit/mL (3 mL) subcutaneous insulin pen RxNorm: 634260 35 Unit(s) SQ QHS 09/21/2015 09/25/2015 Inactive Novolog Flexpen 100 unit/mL subcutaneous RxNorm: 8918832 12 Unit(s) SQ am and 12 units @ noon BID - dr to increase based on glucose readings [id number] 10.4 09/21/2015 09/24/2015 Inactive losartan 100 mg tablet RxNorm: 869691 1 Tablet(s) PO daily 09/21/2015 09/14/2016 Inactive Lantus Solostar 100 unit/mL (3 mL) subcutaneous insulin pen RxNorm: 559677 25 Unit(s) SQ QHS 08/29/2015 09/20/2015 Inactive Novolog Flexpen 100 unit/mL subcutaneous RxNorm: 1553667 8 Unit(s) SQ am and noon BID 08/29/2015 09/20/2015 Inactive Lantus Solostar 100 unit/mL (3 mL) subcutaneous insulin pen RxNorm: 326891 25 Unit(s) SQ QHS 08/25/2015 08/28/2015 Inactive losartan 50 mg tablet RxNorm: 876868 1 Tablet(s) PO daily 08/22/2015 09/20/2015 Inactive levothyroxine 125 mcg tablet RxNorm: 586950 1 Tablet(s) PO daily 01/23/2015 04/22/2015 Inactive Plavix 75 mg tablet RxNorm: 027787 1 Tablet(s) PO daily 01/02/2015 09/22/2016 Inactive Aranesp 25 mcg/mL (in polysorbate) Injection RxNorm: 375806 Milliliter(s) Inj 30mcg q 2 weeks 01/02/2015 05/08/2016 Inactive [SAVINGS FOR NON-COVERED DRUGS -- BIN:[id number], PCN: [id number], Group: [id number], ID# [id number], Questions: . THIS IS NOT INSURANCE.] aspirin 81 mg chewable tablet RxNorm: 719620 1 Tablet(s) PO daily 01/02/2015 05/07/2016 Inactive Coreg 6.25 mg tablet RxNorm: 370598 1 Tablet(s) PO BID 01/02/2015 10/08/2015 Inactive cyanocobalamin (vit B-12) 1,000 mcg tablet RxNorm: 216713 1 Tablet(s) PO daily No Start Date Active Fish Oil 300 mg-1,000 mg capsule RxNorm: 881674 2 Capsule(s) PO daily No Start Date Active Crestor 40 mg tablet RxNorm: 484544 1 Tablet(s) PO daily No Start Date Active Multiple Vitamins tablet RxNorm: 1 Tablet(s) PO daily No Start Date Active ferrous sulfate 325 mg (65 mg iron) tablet RxNorm: 916146 1 Tablet(s) PO daily No Start Date Active Aranesp 40 mcg/mL (in polysorbate) Injection RxNorm: 530256 Inject 1 Milliliter(s) SQ Every 2 weeks No Start Date Active loratadine 10 mg tablet RxNorm: 100986 1 Tablet(s) PO daily No Start Date Active levothyroxine 100 mcg tablet RxNorm: 729351 1 Tablet(s) PO daily No Start Date Active aspirin 81 mg capsule,delayed release RxNorm: 159410 1 Capsule(s) PO daily No Start Date Active calcium carbonate 200 mg calcium (500 mg) chewable tablet RxNorm: 800250 1-2 Tablet(s) PO daily No Start Date Active Lasix 20 mg tablet RxNorm: 679279 1 Tablet(s) PO daily No Start Date Active lactulose 20 gram oral packet RxNorm: 5146398 30 packet PO BID No Start Date Active ferrous sulfate 325 mg (65 mg iron) tablet RxNorm: 386937 1 Tablet(s) PO daily No Start Date 05/07/2016 Inactive sodium bicarbonate 650 mg tablet RxNorm: 423244 1 Tablet(s) PO BID No Start Date 10/06/2018 Inactive Aranesp 25 mcg/mL (in polysorbate) Injection RxNorm: 144148 injection No Start Date 01/01/2015 Inactive Vitamin D3 2,000 unit tablet RxNorm: 151968 1 Tablet(s) PO daily No Start Date 10/06/2018 Inactive lovastatin 40 mg tablet RxNorm: 382188 1 Tablet(s) PO daily No Start Date 05/07/2016 Inactive Lipitor 40 mg tablet RxNorm: 102006 1 Tablet(s) PO QHS No Start Date 01/01/2015 Inactive amlodipine 2.5 mg tablet RxNorm: 186405 1 Tablet(s) PO BID No Start Date 12/16/2014 Inactive sodium bicarbonate 325 mg tablet RxNorm: 941935 1 Tablet(s) PO BID No Start Date 05/07/2016 Inactive levothyroxine 150 mcg tablet RxNorm: 133079 1 Tablet(s) PO daily No Start Date 01/22/2015 Inactive Lantus Solostar 100 unit/mL (3 mL) subcutaneous insulin pen RxNorm: 071379 20 Unit(s) SQ QHS No Start Date 08/24/2015 Inactive Vitamin B12 Oral RxNorm: oral No Start Date 10/06/2018 Inactive Lantus 100 unit/mL subcutaneous solution RxNorm: 479547 30 Unit(s) SQ QHS No Start Date 09/18/2016 Inactive Novolog 100 unit/mL subcutaneous solution RxNorm: 551260 10 Unit(s) SQ BID in the AM and at noon No Start Date 07/02/2017 Inactive aspirin 81 mg tablet RxNorm: 724581 1 Tablet(s) PO daily No Start Date 01/01/2015 Inactive Levemir FlexTouch U-100 Insulin 100 unit/mL (3 mL) subcutaneous pen RxNorm: 824162 25 Unit(s) SQ daily No Start Date 10/26/2018 Inactive Novolog Flexpen 100 unit/mL subcutaneous RxNorm: 7638193 8 Unit(s) SQ am and noon BID No Start Date 08/28/2015 Inactive glimepiride 4 mg tablet RxNorm: 535272 1 Tablet(s) PO daily No Start Date 10/08/2015 Inactive Vitamin D3 2,000 unit capsule RxNorm: 895963 1 Capsule(s) PO daily No Start Date 05/08/2016 Inactive metoprolol tartrate 12.5 Tablet RxNorm: 1 Tablet(s) PO BID No Start Date 12/16/2014 Inactive Medication Administered No Medication Administered data Immunizations Vaccine Codes Date Status Influenza CVX: 141 06/06/2017 completed Assessments Condition Codes Effective Dates Type 2 diabetes mellitus with hyperglycemia ICD-10: [...] Visit Reason For Visit Effective Dates Notes blisters 10/27/2018 anxiety 08/26/2018 headache 07/20/2018 diabetes [...] 12/02/2018 Urinalysis Ord28 U-Yeast NEGATIVE 12/02/2018 Renal Kuf870 NA 138 mEq/L 11/02/2018 Renal Ufk071 K 5.0 mEq/L 11/02/2018 Renal Uby853 CL 107 mEq/L 11/02/2018 Renal Jab680 CO2 21.0 mEq/L 11/02/2018 Renal Kib165 ANION GAP 15 11/02/2018 Renal Jfr620 Osmo 302 mOsmo 11/02/2018 Renal Hrl774 GLUCOSE 151 mg/dL 11/02/2018 Renal Ygg829 BUN 79 mg/dL 11/02/2018 Renal Mnu044 Creat 3.5 mg/dL 11/02/2018 Renal Ncl655 eGFR 14 ml/min/1.73m2 11/02/2018 Renal Mam387 B/C Ratio 22.9 Ratio 11/02/2018 Renal Ipv396 CALCIUM 8.1 mg/dL 11/02/2018 Renal Aue298 PHOS 6.2 mg/dL 11/02/2018 Renal Wad191 ALBUMIN 3.4 g/dL 11/02/2018 Parathyroid Hormone Ewk012 PTH 145.00 pg/ml 11/02/2018 Random Urine Protein/Creatinine Ratio Skf0927 U Prot 42.0 mg/dl 11/02/2018 Random Urine Protein/Creatinine Ratio Uuq9292 U CREAT 72.0 mg/dL 11/02/2018 Random Urine Protein/Creatinine Ratio Obc8516 R MTP/Creat Ratio 0.58 11/02/2018 Uric Acid [...] 34.3 % 11/02/2018 Cbc With Differential Ord2 [place]% 13.4 % 11/02/2018 Cbc With Differential Ord2 [...] 2.38 K/ul 11/02/2018 Cbc With Differential Ord2 [place] ABS# 0.9 K/ul 11/02/2018 Cbc With Differential Ord2 Eos ABS# 0.2 K/ul 11/02/2018 Cbc With Differential Ord2 Baso ABS# 0.0 K/ul 11/02/2018 Vitamin D 25 Oh Wzj7017 VITAMIN D, 25 HYDROXY 53.24 ng/mL 11/02/2018 [...] 30.6 pg 09/16/2018 Cbc With Differential Ord2 [place]% 10.1 % 09/16/2018 Cbc With Differential Ord2 [...] 2.10 K/ul 09/16/2018 Cbc With Differential Ord2 [place] ABS# 0.5 K/ul 09/16/2018 Cbc With Differential [...] (3rd IS) 1.93 uIU/mL 08/24/2018 Free T4 Uhh569 FREE T4 1.05 ng/dL 08/24/2018 Urinalysis Ord28 [...] 29.7 pg 08/17/2018 Cbc With Differential Ord2 [place]% 9.8 % 08/17/2018 Cbc With Differential Ord2 [...] 2.14 K/ul 08/17/2018 Cbc With Differential Ord2 [place] ABS# 0.7 K/ul 08/17/2018 Cbc With Differential Ord2 Eos ABS# 0.2 K/ul 08/17/2018 Cbc With Differential Ord2 Baso ABS# 0.0 K/ul 08/17/2018 Comp Metabolic Uxi017 NA 143 mEq/L 04/14/2018 Comp Metabolic Jyq199 K 4.6 mEq/L 04/14/2018 Comp Metabolic Yxs749 CL 108 mEq/L 04/14/2018 Comp Metabolic Zng003 CO2 23.0 mEq/L 04/14/2018 Comp Metabolic Rmc001 ANION GAP 17 04/14/2018 Comp Metabolic Bwr414 GLUCOSE 54 mg/dL 04/14/2018 Comp Metabolic Eed295 Creat 2.7 mg/dL 04/14/2018 Comp Metabolic Ciu382 eGFR 18 ml/min/1.73m2 04/14/2018 Comp Metabolic Mih829 BUN 45 mg/dL 04/14/2018 Comp Metabolic Wvm259 B/C Ratio 16.9 Ratio 04/14/2018 Comp Metabolic Wes446 CALCIUM 8.3 mg/dL 04/14/2018 Comp Metabolic Qvj204 ALK PHOS 113 U/L 04/14/2018 Comp Metabolic Xyl869 AST(SGOT) 31 U/L 04/14/2018 Comp Metabolic Ucy181 ALT(SGPT) 33 U/L 04/14/2018 Comp Metabolic Ide217 BILI T 0.5 mg/dL 04/14/2018 Comp Metabolic Wpf576 ALBUMIN 3.6 g/dL 04/14/2018 Comp Metabolic Gbw786 TPRO 6.5 g/dL 04/14/2018 Comp Metabolic Xdt746 GLOB 2.9 g/dL 04/14/2018 Comp Metabolic Gsp891 A/G Ratio 1.2 Ratio 04/14/2018 Comp Metabolic Ggo451 Osmo 294 mOsmo 04/14/2018 Lipid Ord30 CHOL [...] Ord28 U-Com Culture to follow 01/21/2018 %Hba1C Yoz463 % HbA1c 51210- 6 7.4 % 11/03/2017 %Hba1C Qwk464 Gluc Ave 166 mg/dL 11/03/2017 Urine Culture [...] 26.3 pg 09/20/2016 Cbc With Differential Ord2 [place]% 11.3 % 09/20/2016 Cbc With Differential Ord2 [...] 1.08 K/ul 09/20/2016 Cbc With Differential Ord2 [place] ABS# 0.5 K/ul 09/20/2016 Cbc With Differential Ord2 Eos ABS# 0.2 K/ul 09/20/2016 Cbc With Differential Ord2 Baso ABS# 0.1 K/ul 09/20/2016 Comp Metabolic Bxo295 NA 141 mEq/L 09/20/2016 Comp Metabolic Dsx641 K 5.9 Result Verified By Repeat Analysis mEq/L 09/20/2016 Comp Metabolic Dqy898 CL 110 mEq/L 09/20/2016 Comp Metabolic Jdk900 CO2 23.0 mEq/L 09/20/2016 Comp Metabolic Apd872 ANION GAP 14 09/20/2016 Comp Metabolic Pgm753 GLUCOSE 101 mg/dL 09/20/2016 Comp Metabolic Ott668 Creat 2.2 mg/dL 09/20/2016 Comp Metabolic Qxn225 eGFR 23 ml/min/1.73m2 09/20/2016 Comp Metabolic Egv919 BUN 49 mg/dL 09/20/2016 Comp Metabolic Dyi867 B/C Ratio 22.0 Ratio 09/20/2016 Comp Metabolic Bqa330 CALCIUM 8.7 mg/dL 09/20/2016 Comp Metabolic Nuk116 ALK PHOS 142 U/L 09/20/2016 Comp Metabolic Qtu921 AST(SGOT) 26 U/L 09/20/2016 Comp Metabolic Xwm761 ALT(SGPT) 27 U/L 09/20/2016 Comp Metabolic Fyl068 BILI T 0.3 mg/dL 09/20/2016 Comp Metabolic Avc355 ALBUMIN 4.0 g/dL 09/20/2016 Comp Metabolic Xfg976 TPRO 7.6 g/dL 09/20/2016 Comp Metabolic Nlb036 GLOB 3.6 g/dL 09/20/2016 Comp Metabolic Lzu531 A/G Ratio 1.1 Ratio 09/20/2016 Comp Metabolic Ejy892 Osmo 294 mOsmo 09/20/2016 %Hba1C Osp670 % HbA1c 10543- 6 6.7 % 09/20/2016 %Hba1C Bau734 Gluc Ave 146 mg/dL 09/20/2016 Urinalysis Ord28 [...] hours from collection if refrigerated) 05/31/2016 %Hba1C Pkm166 % HbA1c 19504- 6 13.5 % 03/28/2016 %Hba1C Hrk705 Gluc Ave 341 mg/dL 03/28/2016 Tsh Ord6 hTSH II 16.02 uIU/mL 03/28/2016 Comp Metabolic Xuk099 NA 133 mEq/L 03/28/2016 Comp Metabolic Emp587 K 5.4 mEq/L 03/28/2016 Comp Metabolic Qbe475 CL 102 mEq/L 03/28/2016 Comp Metabolic Sdm522 CO2 22.0 mEq/L 03/28/2016 Comp Metabolic Ghj552 ANION GAP 14 03/28/2016 Comp Metabolic Ras701 GLUCOSE 432 mg/dL 03/28/2016 Comp Metabolic Qbo657 Creat 1.9 mg/dL 03/28/2016 Comp Metabolic Pux771 eGFR 27 ml/min/1.73m2 03/28/2016 Comp Metabolic Hoo658 BUN 38 mg/dL 03/28/2016 Comp Metabolic Nfr499 B/C Ratio 19.6 Ratio 03/28/2016 Comp Metabolic Jeo773 CALCIUM 8.9 mg/dL 03/28/2016 Comp Metabolic Duh265 ALK PHOS 84 U/L 03/28/2016 Comp Metabolic Wyy580 AST(SGOT) 9 U/L 03/28/2016 Comp Metabolic Lkg190 ALT(SGPT) 6 U/L 03/28/2016 Comp Metabolic Pkl994 BILI T 0.4 mg/dL 03/28/2016 Comp Metabolic Brx199 ALBUMIN 3.6 g/dL 03/28/2016 Comp Metabolic Mix941 TPRO 6.8 g/dL 03/28/2016 Comp Metabolic Rwv157 GLOB 3.2 g/dL 03/28/2016 Comp Metabolic Xea769 A/G Ratio 1.1 Ratio 03/28/2016 Comp Metabolic Ljv194 Osmo 294 mOsmo 03/28/2016 Free T4 Mhg928 FREE T4 0.72 ng/dL 03/28/2016 Comp Metabolic Maf454 NA 132 mEq/L 12/22/2015 Comp Metabolic Wnf081 K 4.6 mEq/L 12/22/2015 Comp Metabolic Ffk351 CL 97 mEq/L 12/22/2015 Comp Metabolic Lys477 CO2 24.0 mEq/L 12/22/2015 Comp Metabolic Eev079 ANION GAP 16 12/22/2015 Comp Metabolic Sak570 GLUCOSE 354 mg/dL 12/22/2015 Comp Metabolic Xlu065 Creat 1.8 mg/dL 12/22/2015 Comp Metabolic Fsi424 eGFR 29 ml/min/1.73m2 12/22/2015 Comp Metabolic Ivh617 BUN 47 mg/dL 12/22/2015 Comp Metabolic Ymh024 B/C Ratio 26.3 Ratio 12/22/2015 Comp Metabolic Lfl847 CALCIUM 9.5 mg/dL 12/22/2015 Comp Metabolic Rxe122 ALK PHOS 100 U/L 12/22/2015 Comp Metabolic Pfe141 AST(SGOT) 15 U/L 12/22/2015 Comp Metabolic Pok839 ALT(SGPT) 11 U/L 12/22/2015 Comp Metabolic Agh099 BILI T 0.4 mg/dL 12/22/2015 Comp Metabolic Ctz979 ALBUMIN 3.7 g/dL 12/22/2015 Comp Metabolic Tpq787 TPRO 7.1 g/dL 12/22/2015 Comp Metabolic Zvy629 GLOB 3.4 g/dL 12/22/2015 Comp Metabolic Tzi382 A/G Ratio 1.1 Ratio 12/22/2015 Comp Metabolic Qhw908 Osmo 291 mOsmo 12/22/2015 Microalbumin Vnw367 MicroAlb 25.4 mg/dL 12/22/2015 Random Urine Protein/Creatinine Ratio Spl6197 U Prot 63.3 mg/dl 12/22/2015 Random Urine Protein/Creatinine Ratio Ipp3619 U CREAT 83.0 mg/dL 12/22/2015 Random Urine Protein/Creatinine Ratio Ehg2279 R MTP/Creat Ratio 0.76 12/22/2015 %Hba1C Slf197 % HbA1c 72701- 6 11.9 % 12/21/2015 %Hba1C Sof722 Gluc Ave 295 mg/dL 12/21/2015 Review of Systems System Result Effective Dates Constitutional No recent illness 10/27/2018 Constitutional No [...] Procedure Codes Date DESTRUCT PREMALG LESION CPT-4: 91727 10/07/2016 Vital Signs Date Vital 10/27/2018 Blood Pressure 1: 128/68 Code: 8480-6 BMI: 27.6 Code: 73857-1 Heart Rate 1: 70 bpm Height: 5'3" SpO2: 94% Weight: 156 lbs 08/26/2018 Blood Pressure 1: 146/52 Code: 8480-6 BMI: 28.0 Code: 65577-3 Heart Rate 1: 68 bpm Height: 5'3" SpO2: 98% Weight: 158 lbs 07/20/2018 Blood Pressure 1: 144/70 Code: 8480-6 BMI: 28.3 Code: 58059-1 Heart Rate 1: 82 bpm Height: 5'3" SpO2: 100% Weight: 160 lbs 03/05/2018 Blood Pressure 1: 144/66 Code: 8480-6 BMI: 28.7 Code: 92718-2 Heart Rate 1: 83 bpm Height: 5'3" SpO2: 99% Weight: 162 lbs 10/30/2017 Blood Pressure 1: 122/58 Code: 8480-6 BMI: 30.1 Code: 08439-4 Heart Rate 1: 78 bpm Height: 5'3" SpO2: 98% Weight: 170 lbs 07/03/2017 Blood Pressure 1: 148/78 Code: 8480-6 BMI: 29.8 Code: 74862-7 Heart Rate 1: 80 bpm Height: 5'3" SpO2: 99% Weight: 168 lbs 04/03/2017 Blood Pressure 1: 144/64 Code: 8480-6 BMI: 29.1 Code: 35678-9 Heart Rate 1: 78 bpm Height: 5'3" SpO2: 98% Weight: 164 lbs 12/31/2016 Blood Pressure 1: 138/70 Code: 8480-6 BMI: 30.3 Code: 96357-2 Heart Rate 1: 84 bpm Height: 5'3" SpO2: 90% Weight: 171 lbs 10/07/2016 Blood Pressure 1: 146/78 Code: 8480-6 BMI: 29.4 Code: 16339-8 Heart Rate 1: 73 bpm Height: 5'3" SpO2: 99% Weight: 166 lbs 09/19/2016 Blood Pressure 1: 168/76 Code: 8480-6 BMI: 29.2 Code: 29664-3 Heart Rate 1: 88 bpm Height: 5'3" SpO2: 98% Weight: 165 lbs 07/08/2016 Blood Pressure 1: 120/80 Code: 8480-6 BMI: 28.3 Code: 34285-0 Heart Rate 1: 80 bpm Height: 5'3" SpO2: 99% Weight: 160 lbs 05/08/2016 Blood Pressure 1: 138/70 Code: 8480-6 BMI: 26.9 Code: 17040-3 Heart Rate 1: 93 bpm Height: 5'3" SpO2: 98% Weight: 152 lbs 03/28/2016 Blood Pressure 1: 144/74 Code: 8480-6 BMI: 27.6 Code: 81587-4 Heart Rate 1: 85 bpm Height: 5'3" SpO2: 99% Weight: 156 lbs 01/22/2016 Blood Pressure 1: 140/82 Code: 8480-6 BMI: 28.9 Code: 45473-3 Heart Rate 1: 104 bpm Height: 5'3" SpO2: 94% Weight: 163 lbs 12/21/2015 Blood Pressure 1: 140/90 Code: 8480-6 BMI: 28.7 Code: 83600-7 Heart Rate 1: 99 bpm Height: 5'3" SpO2: 96% Weight: 162 lbs 11/06/2015 Blood Pressure 1: 110/60 Code: 8480-6 BMI: 29.8 Code: 70563-2 Heart Rate 1: 93 bpm Height: 5'3" SpO2: 98% Weight: 168 lbs 10/20/2015 Blood Pressure 1: 152/62 Code: 8480-6 BMI: 29.8 Code: 39611-7 Heart Rate 1: 86 bpm Height: 5'3" SpO2: 96% Weight: 168 lbs 10/09/2015 Blood Pressure 1: 152/60 Code: 8480-6 BMI: 30.2 Code: 00071-2 Heart Rate 1: 83 bpm Height: 5'3" SpO2: 98% Weight: 170 lbs 8 oz 09/21/2015 Blood Pressure 1: 160/74 Code: 8480-6 Blood Pressure 1: 168/72 Code: 8480-6 BMI: 29.8 Code: 51813-9 Heart Rate 1: 82 bpm Height: 5'3" SpO2: 99% Weight: 168 lbs 08/22/2015 Blood Pressure 1: 170/82 Code: 8480-6 Blood Pressure 1: 178/78 Code: 8480-6 BMI: 29.2 Code: 22200-2 Heart Rate 1: 85 bpm Height: 5'3" SpO2: 99% Weight: 165 lbs 04/07/2015 Blood Pressure 1: 140/68 Code: 8480-6 BMI: 29.9 Code: 90573-3 Heart Rate 1: 81 bpm Height: 5'3" SpO2: 99% Weight: 169 lbs 01/02/2015 Blood Pressure 1: 162/72 Code: 8480-6 BMI: 30.3 Code: 33224-3 Heart Rate 1: 88 bpm Height: 5'3" SpO2: 98% Weight: 171 lbs Functional Status No Functional Status data History of Present Illness Symptom Name Status Result Effective Date Notes Location-Major on the feet 10/27/2018 None Pertinent [...] glucose at home, see scanned readings 10/07/2016 [facility] diabetes mellitus Pertinent Findings Denies dizziness 10/07/2016 [...] data Encounters Encounter Performer Location Codes Date ([id number]) [id number] EST. PATIENT, LEVEL IV Diagnosis: Essential (primary) hypertension[ICD10: I10] Diagnosis: Type 2 diabetes mellitus with hyperglycemia[ICD10: E11.65] Diagnosis: Blister (nonthermal), right foot, initial encounter[ICD10: S90.821A] [facility] CPT-4: 22840 10/27/2018 [id number] EST. 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 PATIENT, LEVEL IV Diagnosis: Type 2 diabetes mellitus with other specified complication[ICD10: E11.69] Diagnosis: Essential (primary) hypertension[ICD10: I10] Diagnosis: Other allergic rhinitis[ICD10: J30.89] Diagnosis: Chronic kidney disease, stage 4 (severe)[ICD10: N18.4] Cordelia Garg MD, [facility] CPT-4: 84590 07/20/2018 ([id number]) 79362 EST. PATIENT, LEVEL III Diagnosis: Essential (primary) hypertension[ICD10: I10] Diagnosis: Type 2 diabetes mellitus with other specified complication[ICD10: E11.69] Cordelia Garg MD, [facility] CPT-4: 51578 03/05/2018 ([id number]) 26488 EST. PATIENT, LEVEL IV Diagnosis: Type 2 diabetes mellitus with hyperglycemia[ICD10: E11.65] Diagnosis: Hypothyroidism, unspecified[ICD10: E03.9] Diagnosis: Essential (primary) hypertension[ICD10: I10] Diagnosis: Chronic kidney disease, stage 4 (severe)[ICD10: N18.4] Cordelia Garg MD, [facility] CPT-4: 32748 10/30/2017 ([id number]) 09006 EST. PATIENT, LEVEL IV Diagnosis: Hypothyroidism, unspecified[ICD10: E03.9] Diagnosis: Type 2 diabetes mellitus with hyperglycemia[ICD10: E11.65] Diagnosis: Essential (primary) hypertension[ICD10: I10] Diagnosis: Chronic kidney disease, stage 4 (severe)[ICD10: N18.4] Cordelia Garg MD, [facility] CPT-4: 08292 07/03/2017 ([id number]) 26471 EST. PATIENT, LEVEL III Diagnosis: Type 2 diabetes mellitus with hyperglycemia[ICD10: E11.65] Diagnosis: Essential (primary) hypertension[ICD10: I10] Diagnosis: Chronic kidney disease, stage 4 (severe)[ICD10: N18.4] Cordelia Garg MD, [facility] CPT-4: 36972 04/03/2017 ([id number]) 93292 EST. PATIENT, LEVEL III Diagnosis: Type 2 diabetes mellitus with hyperglycemia[ICD10: E11.65] Cordelia Garg MD, [facility] CPT-4: 17686 12/31/2016 ([id number]) 80169 EST. PATIENT, LEVEL II Diagnosis: Type 2 diabetes mellitus with hyperglycemia[ICD10: E11.65] Diagnosis: Essential (primary) hypertension[ICD10: I10] Diagnosis: Actinic keratosis[ICD10: L57.0] Cordelia Garg MD, [facility] CPT-4: 76675 10/07/2016 ([id number]) 51204 EST. PATIENT, LEVEL IV Diagnosis: Type 2 diabetes mellitus with hyperglycemia[ICD10: E11.65] Diagnosis: Essential (primary) hypertension[ICD10: I10] Cordelia Garg MD, [facility] CPT-4: 87132 09/19/2016 ([id number]) 95834 EST. PATIENT, LEVEL III Diagnosis: Type 2 diabetes mellitus with hyperglycemia[ICD10: E11.65] Diagnosis: Gastro-esophageal reflux disease without esophagitis[ICD10: K21.9] Cordelia Garg MD, [facility] CPT-4: 05368 07/08/2016 ([id number]) 45686 EST. PATIENT, LEVEL III Diagnosis: Type 2 diabetes mellitus with hyperglycemia[ICD10: E11.65] Riana Garg MD, [facility] CPT-4: 90265 05/08/2016 ([id number]) 50080 EST. PATIENT, LEVEL IV Diagnosis: Essential (primary) hypertension[ICD10: I10] Diagnosis: Type 2 diabetes mellitus with hyperglycemia[ICD10: E11.65] Diagnosis: Hypothyroidism, unspecified[ICD10: E03.9] Diagnosis: Chronic kidney disease, stage 4 (severe)[ICD10: N18.4] Cordelia Garg MD, [facility] CPT-4: 37308 03/28/2016 ([id number]) [id number] EST. PATIENT, LEVEL III Diagnosis: Type 2 diabetes mellitus with hyperglycemia[ICD10: E11.65] Diagnosis: Essential (primary) hypertension[ICD10: I10] Cordelia Garg MD, [facility] CPT-4: 57947 01/22/2016 ([id number]) 33022 EST. PATIENT, LEVEL IV Diagnosis: Type 2 diabetes mellitus with hyperglycemia[ICD10: E11.65] Diagnosis: Hypothyroidism, unspecified[ICD10: E03.9] Diagnosis: Essential (primary) hypertension[ICD10: I10] Diagnosis: Chronic kidney disease, stage 4 (severe)[ICD10: N18.4] Riana Garg MD [facility] CPT-4: 72682 12/21/2015 ([id number]) 99500 EST. PATIENT, LEVEL III Diagnosis: Type 2 diabetes mellitus with hyperglycemia[ICD10: E11.65] Riana Garg MD [facility] CPT-4: 11515 11/06/2015 ([id number]) 24388 EST. PATIENT, LEVEL IV Diagnosis: Type 2 diabetes mellitus with hyperglycemia[ICD10: E11.65] Diagnosis: Essential (primary) hypertension[ICD10: I10] Cordelia Garg MD [facility] CPT-4: 02075 10/20/2015 ([id number]) 26756 EST. PATIENT, LEVEL IV Diagnosis: Type 2 diabetes mellitus with hyperglycemia[ICD10: E11.65] Diagnosis: Essential (primary) hypertension[ICD10: I10] Diagnosis: Actinic keratosis[ICD10: L57.0] Riana Garg MD [facility] CPT-4: 72056 10/09/2015 ([id number]) 77721 EST. PATIENT, LEVEL IV Diagnosis: Type 2 diabetes mellitus with hyperglycemia[ICD10: E11.65] Diagnosis: Essential (primary) hypertension[ICD10: I10] Riana Garg MD [facility] CPT-4: 13837 09/21/2015 ([id number]) 56274 EST. PATIENT, LEVEL IV Diagnosis: Type 2 diabetes mellitus with hyperglycemia[ICD10: E11.65] Diagnosis: Hypothyroidism, unspecified[ICD10: E03.9] Diagnosis: Essential (primary) hypertension[ICD10: I10] Riana Garg MD [facility] CPT-4: 20029 08/22/2015 ([id number]) 13440 EST. PATIENT, LEVEL IV Diagnosis: ESSENTIAL HYPERTENSION[ICD9: 401.9] Diagnosis: HYPERLIPIDEMIA[ICD9: 272.4] Diagnosis: DIABETES TYPE II[ICD9: 250.00] Riana Garg MD [facility] CPT-4: 93423 04/07/2015 ([id number]) OFFICE/OUTPATIENT VISIT NEW Diagnosis: ESSENTIAL HYPERTENSION[ICD9: 401.9] Diagnosis: Diabetes mellitus out of control[ICD9: 250.02] Diagnosis: HYPOTHYROIDISM[ICD9: 244.9] Diagnosis: HYPERLIPIDEMIA[ICD9: 272.4] [facility] CPT-4: 97190 01/02/2015 Plan of Care Planned Activity Notes Codes Status Date Visit Plan: Hypertension - well controlled - continue with current medications, continue with no added salt diet. Pt has been encouraged to exercise daily. The pt has been advised to call the office if there are any acute concerns about change in blood pressure readings at home. Diabetes Mellitus - improved [place] I have recommended for the patient to [...] heals. 10/27/2018 [facility]ment[phone] ([facility] min) Moderate 10/27/2018 Patient Education: Patient Medication Summary Completed 10/27/2018 Patient Education: Hypertension Completed 10/27/2018 Patient Education: Diabetes Completed 10/27/2018 App[facility]ment: [phone] [phone] (15 min) Moderate 10/14/2018 Patient Education: Patient [...] for effectiveness. 08/26/2018 Appointment: [phone] (30 min) Complex 08/26/2018 Patient Education: Patient [...] starting to become less controlled. CKD-patient sees building custodian-has decided not to do dialysis right now Allergies-rx for flonase 07/20/2018 Appointment: Cordelia Kumar [phone] [phone] (15 min) Moderate 07/20/2018 Patient Education: Patient [...] controlled. 03/05/2018 Appointment: Cordelia Kumar [facility]el: [phone] [phone] (30 min) Complex 03/05/2018 Patient Education: Patient [...] voltaren gel 10/30/2017 Appointment: Cordelia Kumar WPtel: [address] [place] [phone] (30 min) [facility] 10/30/2017 Patient Education: Patient Medication Summary Completed [...] starting to become less controlled. Left thumb tzfo-uhsrvbv-zujmspmmg voltaren gel if symptoms persist 07/03/2017 Appointment: [...] to become less controlled. Chronic renal disease-sees building custodian and also paper testing supervisor for management of anemia 04/03/2017 Visit Plan: [...] to become less controlled. Chronic renal disease-sees building custodian and also paper testing supervisor for management of anemia 04/03/2017 Appointment: Cordelia Kumar [facility]Ptel[facility] [phone] [phone] (30 min) Complex 04/03/2017 Patient Education: Patient [...] less controlled. 12/31/2016 Appointment: Cordelia Kumar WPtel: [phone] (30 min) [facility] 12/31/2016 Patient Education: Patient Medication Summary Completed [...] acute concerns. 10/07/2016 Appointment: Cordelia Kumar WPtel: [id number] [place] [address] (30 min) Complex 10/07/2016 Appointment: Cordelia Kumar WPtel: [address] [place], [place] [id number] [place] [address] (30 min) Complex 10/07/2016 Patient Education: Patient [...] at home. 09/19/2016 Appointment: Cordelia Kumar WPtel: [address] [place], [place] [id number] [place] [address] (30 min) Complex 09/19/2016 Patient Education: Patient [...] Summary Completed 07/08/2016 Appointment: Cordelia Kumar WPtel: [phone] (30 min) Complex 06/20/2016 Visit Plan: Diabetes [...] stage 4- patient to make appt with [facility] Addendum: Patient noncompliant with blood sugar logs-she has been instructed to test QID but only tests daily- she did not bring her log for review today.- Patient has since moved to [facility] since this office visit. They [...] stage 4- patient to make appt with [facility] 03/28/2016 Visit Plan: Hypertension - [...] stage 4- patient to make appt with [facility] Addendum: Patient noncompliant with blood sugar logs-she has been instructed to test QID but only tests daily- she did not bring her log for review today.- Patient has since moved to [facility] and they are checking her [...] group Addendum: Patient has since moved to [facility] since this office visit. They are checking her blood sugars AC and HS and she is on a sliding scale to control her d iabetes. 03/28/2016 Patient Education: Patient Medication Summary Completed 03/28/2016 Appointment: Cordelia Kumar [facility]Ptel: [phone] [phone] (30 min) Complex 03/26/2016 Appointment: Cordelia Kumar [facility]Ptel: [phone] [phone] (30 min) Complex 02/20/2016 Visit Plan: Diabetes [...] at home. 01/22/2016 Appointment: Cordelia Kumar WPtel: [phone] (30 min) Complex 01/22/2016 Patient Education: Patient [...] pt has been seeing a group in [facility] - but would like to be seen in [place] to avoid excessive travel. 12/21/2015 Visit Plan: [...] Summary Completed 12/21/2015 Appointment: [phone] [phone] (15 min) Moderate 12/18/2015 Visit Plan: [...] me dications. 04/07/2015 Appointment: Riana [facility]arg [facility] [phone] [phone] Follow up 04/07/2015 Patient Education: Patient [...] control. 01/02/2015 Appointment: Riana Garg [facility] [phone] [phone] [place] New Patient 01/02/2015 Patient [...] will send a referral today to the [facility] - they are located in the [facility] at [address] [place] [address] - phone number is [phone] . Hypertension - well controlled - continue [...] pt has been seeing a group in [facility] - but would like to be seen in [place] to avoid excessive travel. Next time you have an appt - please bring in your blood glucose log sheet Dr. Garg will send a referral today to the [facility] - they are located in the [facility] at [address] [place] [address] - phone number is [phone] . Hypertension - well controlled - continue [...] disease stage 4-patient to make appt with [facility] Addendum: Patient noncompliant with blood sugar logs-she has been instructed to test QID but only tests daily-she did not bring her log for review today.- Patient has since moved to [facility] since this office visit. They [...] disease stage 4-patient to make appt with [facility] . Hypertension - well controlled [...] disease stage 4-patient to make appt with [facility] Addendum: Patient noncompliant with blood sugar logs-she has been instructed to test QID but only tests daily-she did not bring her log for review today.- Patient has since moved to [facility] and they are checking her [...] disease stage 4-patient to make appt with [facility] Addendum: Patient has since moved to [facility] since this office visit. They are checking [...] to become less controlled. Chronic renal disease-sees building custodian and also paper testing supervisor for management of anemia . Hypertension - [...] to become less controlled. Chronic renal disease-sees building custodian and also paper testing supervisor for management of anemia . Diabetes Mellitus [...] starting to become less controlled. CKD-patient sees building custodian-has decided not to do dialysis right now [...] is to call for acute concerns. . Hypertension - well controlled [...] starting to become less controlled. Left thumb fsmy-vlftqrb-xpjucsvow voltaren gel if symptoms persist . Hypertension [...] increase losartan to 100mg daily will have [facility] fax over blood sugar log. . [...] improved control since she is at the detention. I have recommended for the patient to [...]
--- OUTSIDE RECORDS SUMMARY | 2019-02-16 18:41 | XMS REPORT | CCD ---
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 Name Role Phone PP Unavailable CCM Unavailable Summary Purpose Interface Exchange Insurance Providers Payer name Policy type / Coverage type Covered libertarian ID Effective Begin Date Effective End Date WPS Medicare Part B [id number] 2015 Unknown [facility] Assistance [id number] 2015 Unknown Family history Mother Diagnosis Age At Onset Anemia Unknown Stroke Unknown Arthritis Unknown Hypertension Unknown Father Diagnosis Age At Onset Cancer Unknown Social History Social History Element Codes Description Effective Dates Marital status Unknown 01/02/2015 Number of children Unknown 3 01/02/2015 Employment Unknown Retired 01/02/[address]: 8502281 Quit over 10 years ago 25 years ago 01/02/[address]: 738715976 Never drinks alcohol 01/02/2015 Allergies, Adverse Reactions, [...] Start Date Stop Date Status Fill Instructions Levemir FlexTouch U-100 Insulin 100 unit/mL (3 mL) subcutaneous pen RxNorm: 528257 4 Unit(s) SQ daily 10/27/2018 No Stop Date Active risperidone 0.5 mg tablet RxNorm: 318216 1 Tablet(s) PO BID 10/07/2018 02/03/2019 Active losartan 50 mg tablet RxNorm: 826078 1 Tablet(s) PO daily give if 115/50 or greater 10/07/2018 10/01/2019 Active Novolog U-100 Insulin aspart 100 unit/mL subcutaneous solution RxNorm: 668242 5-10 Unit(s) SQ QID per sliding scale and 8 units daily at noon 10/07/2018 No Stop Date Active risperidone 0.25 mg tablet RxNorm: 007157 1 Tablet(s) PO BID 09/09/2018 10/06/2018 Inactive Risperdal 0.25 mg tablet RxNorm: 671983 1 Tablet(s) PO BID 09/09/2018 10/06/2018 Inactive Voltaren 1 % topical gel RxNorm: 543103 2 Gram(s) TOP QID 10/30/2017 No Stop Date Active Novolog 100 unit/mL subcutaneous solution RxNorm: 515838 5-10 Unit(s) SQ QID per sliding scale 07/03/2017 10/06/2018 Inactive Novolog 100 unit/mL subcutaneous solution RxNorm: 191580 8 Unit(s) SQ at noon 09/27/2016 No Stop Date Active Novolog Flexpen 100 unit/mL subcutaneous RxNorm: 1553676 8 Unit(s) SQ at noon 09/27/2016 09/27/2016 Inactive Novolog Flexpen 100 unit/mL subcutaneous RxNorm: 0886590 8 Unit(s) SQ at noon 09/27/2016 09/26/2016 Inactive Novolog 100 unit/mL subcutaneous solution RxNorm: 086058 9 Unit(s) SQ at noon 09/27/2016 09/26/2016 Inactive Lantus 100 unit/mL subcutaneous solution RxNorm: 728906 25 Unit(s) SQ QHS 09/19/2016 10/06/2018 Inactive Coreg 6.25 mg tablet RxNorm: 903413 2 Tablet(s) PO BID 07/08/2016 09/30/2017 Inactive Lantus Solostar 100 unit/mL (3 mL) subcutaneous insulin pen RxNorm: 474727 25 Unit(s) SQ QAM and 50 Units at bedtime 04/05/2016 05/07/2016 Inactive Synthroid 150 mcg tablet RxNorm: 646080 1 Tablet(s) PO daily 04/05/2016 07/02/2017 Inactive Lantus Solostar 100 unit/mL (3 mL) subcutaneous insulin pen RxNorm: 256831 20 Unit(s) SQ QAM and 45 Units at bedtime 01/03/2016 01/07/2016 Inactive Synthroid 125 mcg tablet RxNorm: 036993 1 Tablet(s) PO daily 12/20/2015 12/19/2015 Inactive Synthroid 125 mcg tablet RxNorm: 244052 1 Tablet(s) PO daily 12/20/2015 04/04/2016 Inactive Novolog Flexpen 100 unit/mL subcutaneous RxNorm: 2744523 15 Unit(s) SQ am and 15 units @ noon BID 11/15/2015 05/07/2016 Inactive Lantus Solostar 100 unit/mL (3 mL) subcutaneous insulin pen RxNorm: 842310 10 Unit(s) SQ QAM and 40 Units at bedtime 11/15/2015 11/19/2015 Inactive increased from 25u Coreg 6.25 mg tablet RxNorm: 222484 1.5 Tablet(s) PO BID 10/09/2015 07/07/2016 Inactive Lantus Solostar 100 unit/mL (3 mL) subcutaneous insulin pen RxNorm: 926740 35 Unit(s) SQ QHS 09/26/2015 11/14/2015 Inactive increased from 25u Novolog Flexpen 100 unit/mL subcutaneous RxNorm: 2731207 12 Unit(s) SQ am and 12 units @ noon BID 09/25/2015 11/14/2015 Inactive Lantus Solostar 100 unit/mL (3 mL) subcutaneous insulin pen RxNorm: 366100 35 Unit(s) SQ QHS 09/21/2015 09/25/2015 Inactive Novolog Flexpen 100 unit/mL subcutaneous RxNorm: 7941761 12 Unit(s) SQ am and 12 units @ noon BID - dr to increase based on glucose readings [id number] 10.4 09/21/2015 09/24/2015 Inactive losartan 100 mg tablet RxNorm: 315873 1 Tablet(s) PO daily 09/21/2015 09/14/2016 Inactive Lantus Solostar 100 unit/mL (3 mL) subcutaneous insulin pen RxNorm: 269309 25 Unit(s) SQ QHS 08/29/2015 09/20/2015 Inactive Novolog Flexpen 100 unit/mL subcutaneous RxNorm: 9287272 8 Unit(s) SQ am and noon BID 08/29/2015 09/20/2015 Inactive Lantus Solostar 100 unit/mL (3 mL) subcutaneous insulin pen RxNorm: 112074 25 Unit(s) SQ QHS 08/25/2015 08/28/2015 Inactive losartan 50 mg tablet RxNorm: 473034 1 Tablet(s) PO daily 08/22/2015 09/20/2015 Inactive levothyroxine 125 mcg tablet RxNorm: 463996 1 Tablet(s) PO daily 01/23/2015 04/22/2015 Inactive Plavix 75 mg tablet RxNorm: 740227 1 Tablet(s) PO daily 01/02/2015 09/22/2016 Inactive Aranesp 25 mcg/mL (in polysorbate) Injection RxNorm: 916521 Milliliter(s) Inj 30mcg q 2 weeks 01/02/2015 05/08/2016 Inactive [SAVINGS FOR NON-COVERED DRUGS -- BIN:[id number], PCN: [id number], Group: [id number], ID# [id number], Questions: . THIS IS NOT INSURANCE.] aspirin 81 mg chewable tablet RxNorm: 608034 1 Tablet(s) PO daily 01/02/2015 05/07/2016 Inactive Coreg 6.25 mg tablet RxNorm: 728752 1 Tablet(s) PO BID 01/02/2015 10/08/2015 Inactive cyanocobalamin (vit B-12) 1,000 mcg tablet RxNorm: 669524 1 Tablet(s) PO daily No Start Date Active Fish Oil 300 mg-1,000 mg capsule RxNorm: 834023 2 Capsule(s) PO daily No Start Date Active Crestor 40 mg tablet RxNorm: 171905 1 Tablet(s) PO daily No Start Date Active Multiple Vitamins tablet RxNorm: 1 Tablet(s) PO daily No Start Date Active ferrous sulfate 325 mg (65 mg iron) tablet RxNorm: 168543 1 Tablet(s) PO daily No Start Date Active Aranesp 40 mcg/mL (in polysorbate) Injection RxNorm: 533226 Inject 1 Milliliter(s) SQ Every 2 weeks No Start Date Active loratadine 10 mg tablet RxNorm: 979652 1 Tablet(s) PO daily No Start Date Active levothyroxine 100 mcg tablet RxNorm: 827823 1 Tablet(s) PO daily No Start Date Active aspirin 81 mg capsule,delayed release RxNorm: 926716 1 Capsule(s) PO daily No Start Date Active calcium carbonate 200 mg calcium (500 mg) chewable tablet RxNorm: 860616 1-2 Tablet(s) PO daily No Start Date Active Lasix 20 mg tablet RxNorm: 221289 1 Tablet(s) PO daily No Start Date Active lactulose 20 gram oral packet RxNorm: 4606549 30 packet PO BID No Start Date Active ferrous sulfate 325 mg (65 mg iron) tablet RxNorm: 049433 1 Tablet(s) PO daily No Start Date 05/07/2016 Inactive sodium bicarbonate 650 mg tablet RxNorm: 233394 1 Tablet(s) PO BID No Start Date 10/06/2018 Inactive Aranesp 25 mcg/mL (in polysorbate) Injection RxNorm: 654749 injection No Start Date 01/01/2015 Inactive Vitamin D3 2,000 unit tablet RxNorm: 825833 1 Tablet(s) PO daily No Start Date 10/06/2018 Inactive lovastatin 40 mg tablet RxNorm: 347389 1 Tablet(s) PO daily No Start Date 05/07/2016 Inactive Lipitor 40 mg tablet RxNorm: 951129 1 Tablet(s) PO QHS No Start Date 01/01/2015 Inactive amlodipine 2.5 mg tablet RxNorm: 732247 1 Tablet(s) PO BID No Start Date 12/16/2014 Inactive sodium bicarbonate 325 mg tablet RxNorm: 973141 1 Tablet(s) PO BID No Start Date 05/07/2016 Inactive levothyroxine 150 mcg tablet RxNorm: 773722 1 Tablet(s) PO daily No Start Date 01/22/2015 Inactive Lantus Solostar 100 unit/mL (3 mL) subcutaneous insulin pen RxNorm: 755340 20 Unit(s) SQ QHS No Start Date 08/24/2015 Inactive Vitamin B12 Oral RxNorm: oral No Start Date 10/06/2018 Inactive Lantus 100 unit/mL subcutaneous solution RxNorm: 546475 30 Unit(s) SQ QHS No Start Date 09/18/2016 Inactive Novolog 100 unit/mL subcutaneous solution RxNorm: 812344 10 Unit(s) SQ BID in the AM and at noon No Start Date 07/02/2017 Inactive aspirin 81 mg tablet RxNorm: 730976 1 Tablet(s) PO daily No Start Date 01/01/2015 Inactive Levemir FlexTouch U-100 Insulin 100 unit/mL (3 mL) subcutaneous pen RxNorm: 322692 25 Unit(s) SQ daily No Start Date 10/26/2018 Inactive Novolog Flexpen 100 unit/mL subcutaneous RxNorm: 8347076 8 Unit(s) SQ am and noon BID No Start Date 08/28/2015 Inactive glimepiride 4 mg tablet RxNorm: 651954 1 Tablet(s) PO daily No Start Date 10/08/2015 Inactive Vitamin D3 2,000 unit capsule RxNorm: 687024 1 Capsule(s) PO daily No Start Date [...] Code Result Date Urinalysis Ord28 U-Color Yellow 12/14/2018 Urinalysis Ord28 [...] 12/02/2018 Urinalysis Ord28 U-Yeast NEGATIVE 12/02/2018 Renal Uii070 NA 138 mEq/L 11/02/2018 Renal Gqe343 K 5.0 mEq/L 11/02/2018 Renal Sxu711 CL 107 mEq/L 11/02/2018 Renal Emn554 CO2 21.0 mEq/L 11/02/2018 Renal Ryh263 ANION GAP 15 11/02/2018 Renal Wnu480 Osmo 302 mOsmo 11/02/2018 Renal The602 GLUCOSE 151 mg/dL 11/02/2018 Renal Qui403 BUN 79 mg/dL 11/02/2018 Renal Exk763 Creat 3.5 mg/dL 11/02/2018 Renal Pzk993 eGFR 14 ml/min/1.73m2 11/02/2018 Renal Gwz453 B/C Ratio 22.9 Ratio 11/02/2018 Renal Xdi188 CALCIUM 8.1 mg/dL 11/02/2018 Renal Clh046 PHOS 6.2 mg/dL 11/02/2018 Renal Ljf434 ALBUMIN 3.4 g/dL 11/02/2018 Parathyroid Hormone Vju249 PTH 145.00 pg/ml 11/02/2018 Random Urine Protein/Creatinine Ratio Zzn6952 U Prot 42.0 mg/dl 11/02/2018 Random Urine Protein/Creatinine Ratio Abw7507 U CREAT 72.0 mg/dL 11/02/2018 Random Urine Protein/Creatinine Ratio Mxk0767 R MTP/Creat Ratio 0.58 11/02/2018 Uric Acid [...] 34.3 % 11/02/2018 Cbc With Differential Ord2 [place]% 13.4 % 11/02/2018 Cbc With Differential Ord2 [...] 2.38 K/ul 11/02/2018 Cbc With Differential Ord2 [place] ABS# 0.9 K/ul 11/02/2018 Cbc With Differential Ord2 Eos ABS# 0.2 K/ul 11/02/2018 Cbc With Differential Ord2 Baso ABS# 0.0 K/ul 11/02/2018 Vitamin D 25 Oh Lyk6438 VITAMIN D, 25 HYDROXY 53.24 ng/mL 11/02/2018 [...] 30.6 pg 09/16/2018 Cbc With Differential Ord2 [place]% 10.1 % 09/16/2018 Cbc With Differential Ord2 [...] 2.10 K/ul 09/16/2018 Cbc With Differential Ord2 [place] ABS# 0.5 K/ul 09/16/2018 Cbc With Differential [...] (3rd IS) 1.93 uIU/mL 08/24/2018 Free T4 Qkp511 FREE T4 1.05 ng/dL 08/24/2018 Urinalysis Ord28 [...] 29.7 pg 08/17/2018 Cbc With Differential Ord2 [place]% 9.8 % 08/17/2018 Cbc With Differential Ord2 [...] 2.14 K/ul 08/17/2018 Cbc With Differential Ord2 [place] ABS# 0.7 K/ul 08/17/2018 Cbc With Differential Ord2 Eos ABS# 0.2 K/ul 08/17/2018 Cbc With Differential Ord2 Baso ABS# 0.0 K/ul 08/17/2018 Comp Metabolic Uqf846 NA 143 mEq/L 04/14/2018 Comp Metabolic Qgd583 K 4.6 mEq/L 04/14/2018 Comp Metabolic Sdv967 CL 108 mEq/L 04/14/2018 Comp Metabolic Vqd854 CO2 23.0 mEq/L 04/14/2018 Comp Metabolic Aeg663 ANION GAP 17 04/14/2018 Comp Metabolic Vgu608 GLUCOSE 54 mg/dL 04/14/2018 Comp Metabolic Wwu737 Creat 2.7 mg/dL 04/14/2018 Comp Metabolic Rtc655 eGFR 18 ml/min/1.73m2 04/14/2018 Comp Metabolic Irx914 BUN 45 mg/dL 04/14/2018 Comp Metabolic Dfx913 B/C Ratio 16.9 Ratio 04/14/2018 Comp Metabolic Wsm138 CALCIUM 8.3 mg/dL 04/14/2018 Comp Metabolic Cav900 ALK PHOS 113 U/L 04/14/2018 Comp Metabolic Jsf293 AST(SGOT) 31 U/L 04/14/2018 Comp Metabolic Lgb162 ALT(SGPT) 33 U/L 04/14/2018 Comp Metabolic Zqa292 BILI T 0.5 mg/dL 04/14/2018 Comp Metabolic Kpc167 ALBUMIN 3.6 g/dL 04/14/2018 Comp Metabolic Pth771 TPRO 6.5 g/dL 04/14/2018 Comp Metabolic Rfr258 GLOB 2.9 g/dL 04/14/2018 Comp Metabolic Kqu293 A/G Ratio 1.2 Ratio 04/14/2018 Comp Metabolic Dfn046 Osmo 294 mOsmo 04/14/2018 Lipid Ord30 CHOL [...] Ord28 U-Com Culture to follow 01/21/2018 %Hba1C Qki554 % HbA1c 56740- 6 7.4 % 11/03/2017 %Hba1C Kna713 Gluc Ave 166 mg/dL 11/03/2017 Urine Culture [...] 26.3 pg 09/20/2016 Cbc With Differential Ord2 [place]% 11.3 % 09/20/2016 Cbc With Differential Ord2 [...] 1.08 K/ul 09/20/2016 Cbc With Differential Ord2 [place] ABS# 0.5 K/ul 09/20/2016 Cbc With Differential Ord2 Eos ABS# 0.2 K/ul 09/20/2016 Cbc With Differential Ord2 Baso ABS# 0.1 K/ul 09/20/2016 Comp Metabolic Smz676 NA 141 mEq/L 09/20/2016 Comp Metabolic Pcc747 K 5.9 Result Verified By Repeat Analysis mEq/L 09/20/2016 Comp Metabolic Oky624 CL 110 mEq/L 09/20/2016 Comp Metabolic Ebr512 CO2 23.0 mEq/L 09/20/2016 Comp Metabolic Vpf329 ANION GAP 14 09/20/2016 Comp Metabolic Bli291 GLUCOSE 101 mg/dL 09/20/2016 Comp Metabolic Pym154 Creat 2.2 mg/dL 09/20/2016 Comp Metabolic Nhn852 eGFR 23 ml/min/1.73m2 09/20/2016 Comp Metabolic Mph782 BUN 49 mg/dL 09/20/2016 Comp Metabolic Fak942 B/C Ratio 22.0 Ratio 09/20/2016 Comp Metabolic Eoj687 CALCIUM 8.7 mg/dL 09/20/2016 Comp Metabolic Kss819 ALK PHOS 142 U/L 09/20/2016 Comp Metabolic Eag026 AST(SGOT) 26 U/L 09/20/2016 Comp Metabolic Oaz078 ALT(SGPT) 27 U/L 09/20/2016 Comp Metabolic Ddi230 BILI T 0.3 mg/dL 09/20/2016 Comp Metabolic Nev762 ALBUMIN 4.0 g/dL 09/20/2016 Comp Metabolic Ras513 TPRO 7.6 g/dL 09/20/2016 Comp Metabolic Hdq018 GLOB 3.6 g/dL 09/20/2016 Comp Metabolic Ibc591 A/G Ratio 1.1 Ratio 09/20/2016 Comp Metabolic Rdf301 Osmo 294 mOsmo 09/20/2016 %Hba1C Cto180 % HbA1c 78690- 6 6.7 % 09/20/2016 %Hba1C Uoc049 Gluc Ave 146 mg/dL 09/20/2016 Urinalysis Ord28 [...] hours from collection if refrigerated) 05/31/2016 %Hba1C Hvx192 % HbA1c 20492- 6 13.5 % 03/28/2016 %Hba1C Qvn072 Gluc Ave 341 mg/dL 03/28/2016 Tsh Ord6 hTSH II 16.02 uIU/mL 03/28/2016 Comp Metabolic Vac942 NA 133 mEq/L 03/28/2016 Comp Metabolic Phk149 K 5.4 mEq/L 03/28/2016 Comp Metabolic Ihh970 CL 102 mEq/L 03/28/2016 Comp Metabolic Krr985 CO2 22.0 mEq/L 03/28/2016 Comp Metabolic Abu266 ANION GAP 14 03/28/2016 Comp Metabolic Mfr928 GLUCOSE 432 mg/dL 03/28/2016 Comp Metabolic App408 Creat 1.9 mg/dL 03/28/2016 Comp Metabolic Nqg180 eGFR 27 ml/min/1.73m2 03/28/2016 Comp Metabolic Klq891 BUN 38 mg/dL 03/28/2016 Comp Metabolic Hvl750 B/C Ratio 19.6 Ratio 03/28/2016 Comp Metabolic Rwc202 CALCIUM 8.9 mg/dL 03/28/2016 Comp Metabolic Clo803 ALK PHOS 84 U/L 03/28/2016 Comp Metabolic Aar375 AST(SGOT) 9 U/L 03/28/2016 Comp Metabolic Koe877 ALT(SGPT) 6 U/L 03/28/2016 Comp Metabolic Lny109 BILI T 0.4 mg/dL 03/28/2016 Comp Metabolic Vqw221 ALBUMIN 3.6 g/dL 03/28/2016 Comp Metabolic Msc078 TPRO 6.8 g/dL 03/28/2016 Comp Metabolic Zxv800 GLOB 3.2 g/dL 03/28/2016 Comp Metabolic Tos916 A/G Ratio 1.1 Ratio 03/28/2016 Comp Metabolic Cgv541 Osmo 294 mOsmo 03/28/2016 Free T4 Zpg805 FREE T4 0.72 ng/dL 03/28/2016 Comp Metabolic Wof824 NA 132 mEq/L 12/22/2015 Comp Metabolic Qoe669 K 4.6 mEq/L 12/22/2015 Comp Metabolic Mja151 CL 97 mEq/L 12/22/2015 Comp Metabolic Fef206 CO2 24.0 mEq/L 12/22/2015 Comp Metabolic Vxf900 ANION GAP 16 12/22/2015 Comp Metabolic Khf443 GLUCOSE 354 mg/dL 12/22/2015 Comp Metabolic Imo204 Creat 1.8 mg/dL 12/22/2015 Comp Metabolic Eic970 eGFR 29 ml/min/1.73m2 12/22/2015 Comp Metabolic Nqc243 BUN 47 mg/dL 12/22/2015 Comp Metabolic Ldb192 B/C Ratio 26.3 Ratio 12/22/2015 Comp Metabolic Yhh942 CALCIUM 9.5 mg/dL 12/22/2015 Comp Metabolic Szb744 ALK PHOS 100 U/L 12/22/2015 Comp Metabolic Ocg271 AST(SGOT) 15 U/L 12/22/2015 Comp Metabolic Sbr949 ALT(SGPT) 11 U/L 12/22/2015 Comp Metabolic Lky302 BILI T 0.4 mg/dL 12/22/2015 Comp Metabolic Hkm654 ALBUMIN 3.7 g/dL 12/22/2015 Comp Metabolic Ute488 TPRO 7.1 g/dL 12/22/2015 Comp Metabolic Tse778 GLOB 3.4 g/dL 12/22/2015 Comp Metabolic Mlo089 A/G Ratio 1.1 Ratio 12/22/2015 Comp Metabolic Oaq234 Osmo 291 mOsmo 12/22/2015 Microalbumin Mqc956 MicroAlb 25.4 mg/dL 12/22/2015 Random Urine Protein/Creatinine Ratio Egn6776 U Prot 63.3 mg/dl 12/22/2015 Random Urine Protein/Creatinine Ratio Oqv0440 U CREAT 83.0 mg/dL 12/22/2015 Random Urine Protein/Creatinine Ratio Vzi8703 R MTP/Creat Ratio 0.76 12/22/2015 %Hba1C Pla812 % HbA1c 76378- 6 11.9 % 12/21/2015 %Hba1C Bku322 Gluc Ave 295 mg/dL 12/21/2015 Review of [...] Procedure Codes Date DESTRUCT PREMALG LESION CPT-4: 16728 10/07/2016 Vital Signs Date Vital 10/27/2018 Blood Pressure 1: 128/68 Code: 8480-6 BMI: 27.6 Code: 86117-9 Heart Rate 1: 70 bpm Height: 5'3" SpO2: 94% Weight: 156 lbs 08/26/2018 Blood Pressure 1: 146/52 Code: 8480-6 BMI: 28.0 Code: 59061-7 Heart Rate 1: 68 bpm Height: 5'3" SpO2: 98% Weight: 158 lbs 07/20/2018 Blood Pressure 1: 144/70 Code: 8480-6 BMI: 28.3 Code: 22995-3 Heart Rate 1: 82 bpm Height: 5'3" SpO2: 100% Weight: 160 lbs 03/05/2018 Blood Pressure 1: 144/66 Code: 8480-6 BMI: 28.7 Code: 85578-2 Heart Rate 1: 83 bpm Height: 5'3" SpO2: 99% Weight: 162 lbs 10/30/2017 Blood Pressure 1: 122/58 Code: 8480-6 BMI: 30.1 Code: 58852-3 Heart Rate 1: 78 bpm Height: 5'3" SpO2: 98% Weight: 170 lbs 07/03/2017 Blood Pressure 1: 148/78 Code: 8480-6 BMI: 29.8 Code: 82768-2 Heart Rate 1: 80 bpm Height: 5'3" SpO2: 99% Weight: 168 lbs 04/03/2017 Blood Pressure 1: 144/64 Code: 8480-6 BMI: 29.1 Code: 44743-0 Heart Rate 1: 78 bpm Height: 5'3" SpO2: 98% Weight: 164 lbs 12/31/2016 Blood Pressure 1: 138/70 Code: 8480-6 BMI: 30.3 Code: 24322-5 Heart Rate 1: 84 bpm Height: 5'3" SpO2: 90% Weight: 171 lbs 10/07/2016 Blood Pressure 1: 146/78 Code: 8480-6 BMI: 29.4 Code: 65471-3 Heart Rate 1: 73 bpm Height: 5'3" SpO2: 99% Weight: 166 lbs 09/19/2016 Blood Pressure 1: 168/76 Code: 8480-6 BMI: 29.2 Code: 94287-2 Heart Rate 1: 88 bpm Height: 5'3" SpO2: 98% Weight: 165 lbs 07/08/2016 Blood Pressure 1: 120/80 Code: 8480-6 BMI: 28.3 Code: 18419-1 Heart Rate 1: 80 bpm Height: 5'3" SpO2: 99% Weight: 160 lbs 05/08/2016 Blood Pressure 1: 138/70 Code: 8480-6 BMI: 26.9 Code: 21493-6 Heart Rate 1: 93 bpm Height: 5'3" SpO2: 98% Weight: 152 lbs 03/28/2016 Blood Pressure 1: 144/74 Code: 8480-6 BMI: 27.6 Code: 35445-4 Heart Rate 1: 85 bpm Height: 5'3" SpO2: 99% Weight: 156 lbs 01/22/2016 Blood Pressure 1: 140/82 Code: 8480-6 BMI: 28.9 Code: 16453-8 Heart Rate 1: 104 bpm Height: 5'3" SpO2: 94% Weight: 163 lbs 12/21/2015 Blood Pressure 1: 140/90 Code: 8480-6 BMI: 28.7 Code: 07739-8 Heart Rate 1: 99 bpm Height: 5'3" SpO2: 96% Weight: 162 lbs 11/06/2015 Blood Pressure 1: 110/60 Code: 8480-6 BMI: 29.8 Code: 81086-5 Heart Rate 1: 93 bpm Height: 5'3" SpO2: 98% Weight: 168 lbs 10/20/2015 Blood Pressure 1: 152/62 Code: 8480-6 BMI: 29.8 Code: 83942-2 Heart Rate 1: 86 bpm Height: 5'3" SpO2: 96% Weight: 168 lbs 10/09/2015 Blood Pressure 1: 152/60 Code: 8480-6 BMI: 30.2 Code: 99032-3 Heart Rate 1: 83 bpm Height: 5'3" SpO2: 98% Weight: 170 lbs 8 oz 09/21/2015 Blood Pressure 1: 160/74 Code: 8480-6 Blood Pressure 1: 168/72 Code: 8480-6 BMI: 29.8 Code: 09303-2 Heart Rate 1: 82 bpm Height: 5'3" SpO2: 99% Weight: 168 lbs 08/22/2015 Blood Pressure 1: 170/82 Code: 8480-6 Blood Pressure 1: 178/78 Code: 8480-6 BMI: 29.2 Code: 29626-4 Heart Rate 1: 85 bpm Height: 5'3" SpO2: 99% Weight: 165 lbs 04/07/2015 Blood Pressure 1: 140/68 Code: 8480-6 BMI: 29.9 Code: 37504-4 Heart Rate 1: 81 bpm Height: 5'3" SpO2: 99% Weight: 169 lbs 01/02/2015 Blood Pressure 1: 162/72 Code: 8480-6 BMI: 30.3 Code: 06975-6 Heart Rate 1: 88 bpm Height: 5'3" [...] glucose at home, see scanned readings 10/07/2016 [facility] diabetes mellitus Pertinent Findings Denies dizziness [...] data Encounters Encounter Performer Location Codes Date 10170 EST. PATIENT, LEVEL IV Diagnosis: Essential (primary) hypertension[ICD10: I10] Diagnosis: Type 2 diabetes mellitus with hyperglycemia[ICD10: E11.65] Diagnosis: Blister (nonthermal), right foot, initial encounter[ICD10: S90.821A] Riana Garg MD, [facility] CPT-4: 49688 10/27/2018 [id number] EST. 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 PATIENT, LEVEL IV Diagnosis: Type 2 diabetes mellitus with other specified complication[ICD10: E11.69] Diagnosis: Essential (primary) hypertension[ICD10: I10] Diagnosis: Other allergic rhinitis[ICD10: J30.89] Diagnosis: Chronic kidney disease, stage 4 (severe)[ICD10: N18.4] Cordelia Garg MD, [facility] CPT-4: 91332 07/20/2018 ([id number]) 05579 EST. PATIENT, LEVEL III Diagnosis: Essential (primary) hypertension[ICD10: I10] Diagnosis: Type 2 diabetes mellitus with other specified complication[ICD10: E11.69] Cordelia Garg MD, [facility] CPT-4: 63713 03/05/2018 ([id number]) 65289 EST. PATIENT, LEVEL IV Diagnosis: Type 2 diabetes mellitus with hyperglycemia[ICD10: E11.65] Diagnosis: Hypothyroidism, unspecified[ICD10: E03.9] Diagnosis: Essential (primary) hypertension[ICD10: I10] Diagnosis: Chronic kidney disease, stage 4 (severe)[ICD10: N18.4] Cordelia Garg MD, [facility] CPT-4: 74296 10/30/2017 [id number]) [id number] EST. PATIENT, LEVEL IV Diagnosis: Hypothyroidism, unspecified[ICD10: E03.9] Diagnosis: Type 2 diabetes mellitus with hyperglycemia[ICD10: E11.65] Diagnosis: Essential (primary) hypertension[ICD10: I10] Diagnosis: Chronic kidney disease, stage 4 (severe)[ICD10: N18.4] Cordelia Garg MD, [facility] CPT-4: 60051 07/03/2017 ([id number]) 48163 EST. PATIENT, LEVEL III Diagnosis: Type 2 diabetes mellitus with hyperglycemia[ICD10: E11.65] Diagnosis: Essential (primary) hypertension[ICD10: I10] Diagnosis: Chronic kidney disease, stage 4 (severe)[ICD10: N18.4] Codrelia Garg MD, [facility] CPT-4: 08956 04/03/2017 ([id number]) 42924 EST. PATIENT, LEVEL III Diagnosis: Type 2 diabetes mellitus with hyperglycemia[ICD10: E11.65] Cordelia Garg MD, [facility] CPT-4: 63308 12/31/2016 ([id number]) 25416 EST. PATIENT, LEVEL II Diagnosis: Type 2 diabetes mellitus with hyperglycemia[ICD10: E11.65] Diagnosis: Essential (primary) hypertension[ICD10: I10] Diagnosis: Actinic keratosis[ICD10: L57.0] Cordelia Garg MD, [facility] CPT-4: 28039 10/07/2016 [id number] 74219 EST. PATIENT, LEVEL IV Diagnosis: Type 2 diabetes mellitus with hyperglycemia[ICD10: E11.65] Diagnosis: Essential (primary) hypertension[ICD10: I10] Cordeila Garg MD, [facility] CPT-4: 07515 09/19/2016 [id number]) [id number] EST. PATIENT, LEVEL III Diagnosis: Type 2 diabetes mellitus with hyperglycemia[ICD10: E11.65] Diagnosis: Gastro-esophageal reflux disease without esophagitis[ICD10: K21.9] Cordelia Garg MD, [facility] CPT-4: 45796 07/08/2016 ([id number]) 67643 EST. PATIENT, LEVEL III Diagnosis: Type 2 diabetes mellitus with hyperglycemia[ICD10: E11.65] Riana Garg MD [facility] CPT-4: 01144 05/08/2016 ([id number]) 24344 EST. PATIENT, LEVEL IV Diagnosis: Essential (primary) hypertension[ICD10: I10] Diagnosis: Type 2 diabetes mellitus with hyperglycemia[ICD10: E11.65] Diagnosis: Hypothyroidism, unspecified[ICD10: E03.9] Diagnosis: Chronic kidney disease, stage 4 (severe)[ICD10: N18.4] Cordelia Garg MD [facility] CPT-4: 85455 03/28/2016 ([id number]) 63628 EST. PATIENT, LEVEL III Diagnosis: Type 2 diabetes mellitus with hyperglycemia[ICD10: E11.65] Diagnosis: Essential (primary) hypertension[ICD10: I10] Cordelia Garg MD [facility] CPT-4: 57517 01/22/2016 ([id number]) 58467 EST. PATIENT, LEVEL IV Diagnosis: Type 2 diabetes mellitus with hyperglycemia[ICD10: E11.65] Diagnosis: Hypothyroidism, unspecified[ICD10: E03.9] Diagnosis: Essential (primary) hypertension[ICD10: I10] Diagnosis: Chronic kidney disease, stage 4 (severe)[ICD10: N18.4] Riana Garg MD [facility] CPT-4: 94598 12/21/2015 ([id number]) 52368 EST. PATIENT, LEVEL III Diagnosis: Type 2 diabetes mellitus with hyperglycemia[ICD10: E11.65] Riana Garg MD [facility] CPT-4: 42223 11/06/2015 ([id number]) [id number] EST. PATIENT, LEVEL IV Diagnosis: Type 2 diabetes mellitus with hyperglycemia[ICD10: E11.65] Diagnosis: Essential (primary) hypertension[ICD10: I10] Cordelia Garg MD [facility] CPT-4: 72870 10/20/2015 ([id number]) [id number] EST. PATIENT, LEVEL IV Diagnosis: Type 2 diabetes mellitus with hyperglycemia[ICD10: E11.65] Diagnosis: Essential (primary) hypertension[ICD10: I10] Diagnosis: Actinic keratosis[ICD10: L57.0] Riana Garg MD [facility] CPT-4: 11551 10/09/2015 [id number]) [id number] EST. PATIENT, LEVEL IV Diagnosis: Type 2 diabetes mellitus with hyperglycemia[ICD10: E11.65] Diagnosis: Essential (primary) hypertension[ICD10: I10] Riana Garg MD, [facility] CPT-4: 23980 09/21/2015 ([id number]) 36456 EST. PATIENT, LEVEL IV Diagnosis: Type 2 diabetes mellitus with hyperglycemia[ICD10: E11.65] Diagnosis: Hypothyroidism, unspecified[ICD10: E03.9] Diagnosis: Essential (primary) hypertension[ICD10: I10] ADINA Dao MD CPT-4: 05700 08/22/2015 ([id number]) [id number] EST. PATIENT, LEVEL IV Diagnosis: ESSENTIAL HYPERTENSION[ICD9: 401.9] Diagnosis: HYPERLIPIDEMIA[ICD9: 272.4] Diagnosis: DIABETES TYPE II[ICD9: 250.00] ADINA Dao MD CPT-4: 35567 04/07/2015 ([id number]) OFFICE/OUTPATIENT VISIT NEW Diagnosis: ESSENTIAL HYPERTENSION[ICD9: 401.9] Diagnosis: Diabetes mellitus out of control[ICD9: 250.02] Diagnosis: HYPOTHYROIDISM[ICD9: 244.9] Diagnosis: HYPERLIPIDEMIA[ICD9: 272.4] Riana Garg MD, [facility] CPT-4: 63083 01/02/2015 Plan of Care Planned Activity Notes [...] improved control since she is at the half-way. I have recommended for the patient to [...] of heals. 10/27/2018 Appointment: [phone] (15 min) Moderate 10/27/2018 Patient Education: Patient Medication Summary Completed 10/27/2018 Patient Education: Hypertension Completed 10/27/2018 Patient Education: Diabetes Completed 10/27/2018 Appointment: Forest Riana WPtel: [phone] [facility] [place] (15 min) Moderate 10/14/2018 Patient Education: [...] effectiveness. 08/26/2018 App[facility]ment: [phone] (30 min) Complex 08/26/2018 Patient [...] starting to become less controlled. CKD-patient sees shipping receiving manager-has decided not to do dialysis right now Allergies-rx for flonase 07/20/2018 Appointment: Cordelia Kumar WPtel: [phone] [phone] (15 min) Moderate 07/20/2018 Patient Education: [...] controlled. 03/05/2018 Appointment: Cord[facility]el[phone] (30 min) Complex 03/05/2018 Patient Education: Patient [...] gel 10/30/2017 Appointment: Cordelia Kumar WPtel: [phone] [phone] [place] [address] (30 min) Complex 10/30/2017 Patient Education: Patient [...] starting to become less controlled. Left thumb zwjl-wainudr-cgoifuatx voltaren gel if symptoms persist 07/03/2017 Appointment: Cordelia Kumar WPtel: [phone] (30 min) Complex 07/03/2017 Patient Education: Patient [...] to become less controlled. 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 12/31/2016 Appointment: Cord[facility]el[phone] (30 min) Complex 12/31/2016 Patient [...] concerns. 10/07/2016 Appointment: Cordelia Kumar WPtel: [phone] [phone] (30 min) Complex 10/07/2016 Appointment: Cordelia Kumar WPtel: [phone] (30 min) Complex 10/07/2016 Patient Education: [...] home. 09/19/2016 Appointment: Cordelia Kumar WPtel: [phone] [phone] (30 min) Complex 09/19/2016 Patient Education: [...] Completed 07/08/2016 Appointment: Cordelia Kumar WPtel: [phone] [phone] [place] [address] (30 min) Complex 06/20/2016 Visit Plan: Diabetes [...] stage 4- patient to make appt with [facility] Addendum: Patient has since moved to [facility] since this office visit. [...] stage 4- patient to make appt with [facility] Addendum: Patient noncompliant with blood sugar logs-she has been instructed to test QID but only tests daily- she did not bring her log for review today.- Patient has since moved to [facility] and they are checking [...] stage 4- patient to make appt with [facility] 03/28/2016 Visit Plan: Hypertension - [...] stage 4- patient to make appt with [facility] Addendum: Patient noncompliant with blood sugar logs-she has been instructed to test QID but only tests daily- she did not bring her log for review today.- Patient has since moved to [facility] since this office visit. They are checking her blood sugars AC and HS and she is on a sliding scale to control her diabetes. 03/28/2016 Patient Education: Patient Medication Summary Completed 03/28/2016 Appointment: Cordelia Kumar WPtel: [facility]5 [phone] [place] [address] (30 min) Complex 03/26/2016 Appointment: Cordelia Kumar WPtel: [phone] [phone] (30 min) Complex 02/20/2016 Visit Plan: Diabetes [...] at home. 01/22/2016 Appointment: Cordelia Kumar WPtel: [phone] [place] [address] (30 min) Complex 01/22/2016 Patient Education: Patient [...] pt has been seeing a group in [facility] - but would like to be seen in [place] to avoid excessive travel. 12/21/2015 Patient Education: Patient Medication Summary Completed 12/21/2015 Appointment: Riana aGrg WPtel: [address] [place] [address] (15 min) Moderate 12/18/2015 Visit Plan: DM [...] me dications. 04/07/2015 Appointment: Riana Garg WPtel: [address] [place] [address] Follow up 04/07/2015 Patient Education: Patient Medication [...] of control. 01/02/2015 Appointment: Riana Garg [facility]el: [facility] [place] ([place] New Patient 01/02/2015 Patient Education: Patient Medication Summary Completed 01/02/2015 Patient Education: Hypertension Completed 01/02/2015 Instructions Comment . Hypertension - well controlled - continue [...] starting to become less controlled. Left thumb erer-ehqyoau-nprtfyfbb voltaren gel if symptoms persist DO NOT TAKE NOVOLOG IF YOU DO [...] starting to become less controlled. CKD-patient sees shipping receiving manager-has decided not to do dialysis right now [...] to become less controlled. 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 Hypertension [...] to become less controlled. 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 Diabetes [...] Patient has since moved to [facility] since this office visit. [...] disease stage 4-patient to make appt with [facility] Addendum: Patient noncompliant with blood sugar logs-she has been instructed to test QID but only tests daily-she did not bring her log for review today.- Patient has since moved to [facility] and they are checking [...] disease stage 4-patient to make appt with [facility] . Hypertension - well controlled [...] Patient has since moved to [facility] since this office visit. [...] will send a referral today to the [facility] - they are located in the [facility] at [address] [place] [address] - phone number is [phone] . Hypertension - well controlled - continue [...] will send a referral today to the [facility] - they are located in the [facility] at [address] [place] [address] - phone number is [phone] . Hypertension - well controlled - continue [...] pt has been seeing a group in [facility] but would like to be seen in [place] to avoid excessive travel. . Dementia with [...] glucose control. Finger cellulitis - improved. . DM - medications unchanged today - [...] increase losartan to 100mg daily will have [facility] fax over blood sugar log. . [...] improved control since she is at the half-way. I have recommended for the patient to [...]
[2019-02-16] MEDS ORDERED: LIDOCAINE/EPI 2% 1:100,00 (XYLOCAINE) 20 ML VIAL INJ ONE (18:45)
--- OUTSIDE RECORDS SUMMARY | 2019-02-16 18:45 | XMS REPORT | CCD ---
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 Name Role Phone PP Unavailable CCM Unavailable Summary Purpose Interface Exchange Insurance Providers Payer name Policy type / Coverage type Covered republican ID Effective Begin Date Effective End Date WPS Medicare Part B [id number] 2015 Unknown [facility] Assistance [id number] 2015 Unknown Family history Mother Diagnosis Age At Onset Anemia Unknown Stroke Unknown Arthritis Unknown Hypertension Unknown Father Diagnosis Age At Onset Cancer Unknown Social History Social History Element Codes Description Effective Dates Marital status Unknown 01/02/2015 Number of children Unknown 3 01/02/2015 Employment Unknown Retired 01/02/[address]: 0782945 Quit over 10 years ago 25 years ago 01/02/[address]: 983560331 Never drinks alcohol 01/02/2015 Allergies, Adverse Reactions, [...] 100 unit/mL (3 mL) subcutaneous pen RxNorm: 590827 4 Unit(s) SQ daily 10/27/2018 No Stop Date Active risperidone 0.5 mg tablet RxNorm: 628991 1 Tablet(s) PO BID 10/07/2018 02/03/2019 Active losartan 50 mg tablet RxNorm: 557489 1 Tablet(s) PO daily give if 115/50 or greater 10/07/2018 10/01/2019 Active Novolog U-100 Insulin aspart 100 unit/mL subcutaneous solution RxNorm: 106537 5-10 Unit(s) SQ QID per sliding scale and 8 units daily at noon 10/07/2018 No Stop Date Active risperidone 0.25 mg tablet RxNorm: 536895 1 Tablet(s) PO BID 09/09/2018 10/06/2018 Inactive Risperdal 0.25 mg tablet RxNorm: 989955 1 Tablet(s) PO BID 09/09/2018 10/06/2018 Inactive Voltaren 1 % topical gel RxNorm: 452469 2 Gram(s) TOP QID 10/30/2017 No Stop Date Active Novolog 100 unit/mL subcutaneous solution RxNorm: 698523 5-10 Unit(s) SQ QID per sliding scale 07/03/2017 10/06/2018 Inactive Novolog 100 unit/mL subcutaneous solution RxNorm: 627813 8 Unit(s) SQ at noon 09/27/2016 No Stop Date Active Novolog Flexpen 100 unit/mL subcutaneous RxNorm: 1406527 8 Unit(s) SQ at noon 09/27/2016 09/27/2016 Inactive Novolog Flexpen 100 unit/mL subcutaneous RxNorm: 8763860 8 Unit(s) SQ at noon 09/27/2016 09/26/2016 Inactive Novolog 100 unit/mL subcutaneous solution RxNorm: 185668 9 Unit(s) SQ at noon 09/27/2016 09/26/2016 Inactive Lantus 100 unit/mL subcutaneous solution RxNorm: 326071 25 Unit(s) SQ QHS 09/19/2016 10/06/2018 Inactive Coreg 6.25 mg tablet RxNorm: 674159 2 Tablet(s) PO BID 07/08/2016 09/30/2017 Inactive Lantus Solostar 100 unit/mL (3 mL) subcutaneous insulin pen RxNorm: 675216 25 Unit(s) SQ QAM and 50 Units at bedtime 04/05/2016 05/07/2016 Inactive Synthroid 150 mcg tablet RxNorm: 908120 1 Tablet(s) PO daily 04/05/2016 07/02/2017 Inactive Lantus Solostar 100 unit/mL (3 mL) subcutaneous insulin pen RxNorm: 955870 20 Unit(s) SQ QAM and 45 Units at bedtime 01/03/2016 01/07/2016 Inactive Synthroid 125 mcg tablet RxNorm: 165597 1 Tablet(s) PO daily 12/20/2015 12/19/2015 Inactive Synthroid 125 mcg tablet RxNorm: 100694 1 Tablet(s) PO daily 12/20/2015 04/04/2016 Inactive Novolog Flexpen 100 unit/mL subcutaneous RxNorm: 2547297 15 Unit(s) SQ am and 15 units @ noon BID 11/15/2015 05/07/2016 Inactive Lantus Solostar 100 unit/mL (3 mL) subcutaneous insulin pen RxNorm: 760284 10 Unit(s) SQ QAM and 40 Units at bedtime 11/15/2015 11/19/2015 Inactive increased from 25u Coreg 6.25 mg tablet RxNorm: 772972 1.5 Tablet(s) PO BID 10/09/2015 07/07/2016 Inactive Lantus Solostar 100 unit/mL (3 mL) subcutaneous insulin pen RxNorm: 763896 35 Unit(s) SQ QHS 09/26/2015 11/14/2015 Inactive increased from 25u Novolog Flexpen 100 unit/mL subcutaneous RxNorm: 4004557 12 Unit(s) SQ am and 12 units @ noon BID 09/25/2015 11/14/2015 Inactive Lantus Solostar 100 unit/mL (3 mL) subcutaneous insulin pen RxNorm: 936910 35 Unit(s) SQ QHS 09/21/2015 09/25/2015 Inactive Novolog Flexpen 100 unit/mL subcutaneous RxNorm: 4683794 12 Unit(s) SQ am and 12 units @ noon BID - dr to increase based on glucose readings [id number] 10.4 09/21/2015 09/24/2015 Inactive losartan 100 mg tablet RxNorm: 519702 1 Tablet(s) PO daily 09/21/2015 09/14/2016 Inactive Lantus Solostar 100 unit/mL (3 mL) subcutaneous insulin pen RxNorm: 852836 25 Unit(s) SQ QHS 08/29/2015 09/20/2015 Inactive Novolog Flexpen 100 unit/mL subcutaneous RxNorm: 5293926 8 Unit(s) SQ am and noon BID 08/29/2015 09/20/2015 Inactive Lantus Solostar 100 unit/mL (3 mL) subcutaneous insulin pen RxNorm: 364720 25 Unit(s) SQ QHS 08/25/2015 08/28/2015 Inactive losartan 50 mg tablet RxNorm: 188320 1 Tablet(s) PO daily 08/22/2015 09/20/2015 Inactive levothyroxine 125 mcg tablet RxNorm: 325259 1 Tablet(s) PO daily 01/23/2015 04/22/2015 Inactive Plavix 75 mg tablet RxNorm: 332492 1 Tablet(s) PO daily 01/02/2015 09/22/2016 Inactive Aranesp 25 mcg/mL (in polysorbate) Injection RxNorm: 943117 Milliliter(s) Inj 30mcg q 2 weeks 01/02/2015 05/08/2016 Inactive [SAVINGS FOR NON-COVERED DRUGS -- BIN:[id number], PCN: [id number], Group: [id number], ID# [id number], Questions: . THIS IS NOT INSURANCE.] aspirin 81 mg chewable tablet RxNorm: 385805 1 Tablet(s) PO daily 01/02/2015 05/07/2016 Inactive Coreg 6.25 mg tablet RxNorm: 063815 1 Tablet(s) PO BID 01/02/2015 10/08/2015 Inactive cyanocobalamin (vit B-12) 1,000 mcg tablet RxNorm: 860022 1 Tablet(s) PO daily No Start Date Active Fish Oil 300 mg-1,000 mg capsule RxNorm: 756063 2 Capsule(s) PO daily No Start Date Active Crestor 40 mg tablet RxNorm: 448214 1 Tablet(s) PO daily No Start Date Active Multiple Vitamins tablet RxNorm: 1 Tablet(s) PO daily No Start Date Active ferrous sulfate 325 mg (65 mg iron) tablet RxNorm: 933412 1 Tablet(s) PO daily No Start Date Active Aranesp 40 mcg/mL (in polysorbate) Injection RxNorm: 182125 Inject 1 Milliliter(s) SQ Every 2 weeks No Start Date Active loratadine 10 mg tablet RxNorm: 702371 1 Tablet(s) PO daily No Start Date Active levothyroxine 100 mcg tablet RxNorm: 261420 1 Tablet(s) PO daily No Start Date Active aspirin 81 mg capsule,delayed release RxNorm: 827860 1 Capsule(s) PO daily No Start Date Active calcium carbonate 200 mg calcium (500 mg) chewable tablet RxNorm: 507323 1-2 Tablet(s) PO daily No Start Date Active Lasix 20 mg tablet RxNorm: 558109 1 Tablet(s) PO daily No Start Date Active lactulose 20 gram oral packet RxNorm: 8660623 30 packet PO BID No Start Date Active ferrous sulfate 325 mg (65 mg iron) tablet RxNorm: 098318 1 Tablet(s) PO daily No Start Date 05/07/2016 Inactive sodium bicarbonate 650 mg tablet RxNorm: 563491 1 Tablet(s) PO BID No Start Date 10/06/2018 Inactive Aranesp 25 mcg/mL (in polysorbate) Injection RxNorm: 458338 injection No Start Date 01/01/2015 Inactive Vitamin D3 2,000 unit tablet RxNorm: 795248 1 Tablet(s) PO daily No Start Date 10/06/2018 Inactive lovastatin 40 mg tablet RxNorm: 261999 1 Tablet(s) PO daily No Start Date 05/07/2016 Inactive Lipitor 40 mg tablet RxNorm: 692077 1 Tablet(s) PO QHS No Start Date 01/01/2015 Inactive amlodipine 2.5 mg tablet RxNorm: 644062 1 Tablet(s) PO BID No Start Date 12/16/2014 Inactive sodium bicarbonate 325 mg tablet RxNorm: 663382 1 Tablet(s) PO BID No Start Date 05/07/2016 Inactive levothyroxine 150 mcg tablet RxNorm: 969316 1 Tablet(s) PO daily No Start Date 01/22/2015 Inactive Lantus Solostar 100 unit/mL (3 mL) subcutaneous insulin pen RxNorm: 517404 20 Unit(s) SQ QHS No Start Date 08/24/2015 Inactive Vitamin B12 Oral RxNorm: oral No Start Date 10/06/2018 Inactive Lantus 100 unit/mL subcutaneous solution RxNorm: 418858 30 Unit(s) SQ QHS No Start Date 09/18/2016 Inactive Novolog 100 unit/mL subcutaneous solution RxNorm: 141249 10 Unit(s) SQ BID in the AM and at noon No Start Date 07/02/2017 Inactive aspirin 81 mg tablet RxNorm: 869479 1 Tablet(s) PO daily No Start Date 01/01/2015 Inactive Levemir FlexTouch U-100 Insulin 100 unit/mL (3 mL) subcutaneous pen RxNorm: 992134 25 Unit(s) SQ daily No Start Date 10/26/2018 Inactive Novolog Flexpen 100 unit/mL subcutaneous RxNorm: 2904246 8 Unit(s) SQ am and noon BID No Start Date 08/28/2015 Inactive glimepiride 4 mg tablet RxNorm: 918424 1 Tablet(s) PO daily No Start Date 10/08/2015 Inactive Vitamin D3 2,000 unit capsule RxNorm: 348386 1 Capsule(s) PO daily No Start Date [...] Code Result Date Urinalysis Ord28 U-Color Yellow 12/02/2018 Urinalysis Ord28 [...] 12/02/2018 Urinalysis Ord28 U-Yeast NEGATIVE 12/02/2018 Renal Adw806 NA 138 mEq/L 11/02/2018 Renal Smy691 K 5.0 mEq/L 11/02/2018 Renal Jaj567 CL 107 mEq/L 11/02/2018 Renal Gtu349 CO2 21.0 mEq/L 11/02/2018 Renal Mgm330 ANION GAP 15 11/02/2018 Renal Yid487 Osmo 302 mOsmo 11/02/2018 Renal Hrr714 GLUCOSE 151 mg/dL 11/02/2018 Renal Ljc307 BUN 79 mg/dL 11/02/2018 Renal Tsk778 Creat 3.5 mg/dL 11/02/2018 Renal Ypt975 eGFR 14 ml/min/1.73m2 11/02/2018 Renal Toj297 B/C Ratio 22.9 Ratio 11/02/2018 Renal Tnc899 CALCIUM 8.1 mg/dL 11/02/2018 Renal Wjw903 PHOS 6.2 mg/dL 11/02/2018 Renal Djn636 ALBUMIN 3.4 g/dL 11/02/2018 Parathyroid Hormone Btr876 PTH 145.00 pg/ml 11/02/2018 Random Urine Protein/Creatinine Ratio Kfa7850 U Prot 42.0 mg/dl 11/02/2018 Random Urine Protein/Creatinine Ratio Nsp3499 U CREAT 72.0 mg/dL 11/02/2018 Random Urine Protein/Creatinine Ratio Wve1535 R MTP/Creat Ratio 0.58 11/02/2018 Uric Acid [...] 34.3 % 11/02/2018 Cbc With Differential Ord2 [place]% 13.4 % 11/02/2018 Cbc With Differential Ord2 [...] 2.38 K/ul 11/02/2018 Cbc With Differential Ord2 [place] ABS# 0.9 K/ul 11/02/2018 Cbc With Differential Ord2 Eos ABS# 0.2 K/ul 11/02/2018 Cbc With Differential Ord2 Baso ABS# 0.0 K/ul 11/02/2018 Vitamin D 25 Oh Iaj2354 VITAMIN D, 25 HYDROXY 53.24 ng/mL 11/02/2018 [...] 30.6 pg 09/16/2018 Cbc With Differential Ord2 [place]% 10.1 % 09/16/2018 Cbc With Differential Ord2 [...] 2.10 K/ul 09/16/2018 Cbc With Differential Ord2 [place] ABS# 0.5 K/ul 09/16/2018 Cbc With Differential [...] (3rd IS) 1.93 uIU/mL 08/24/2018 Free T4 Kqc323 FREE T4 1.05 ng/dL 08/24/2018 Urinalysis Ord28 [...] 29.7 pg 08/17/2018 Cbc With Differential Ord2 [place]% 9.8 % 08/17/2018 Cbc With Differential Ord2 [...] 2.14 K/ul 08/17/2018 Cbc With Differential Ord2 [place] ABS# 0.7 K/ul 08/17/2018 Cbc With Differential Ord2 Eos ABS# 0.2 K/ul 08/17/2018 Cbc With Differential Ord2 Baso ABS# 0.0 K/ul 08/17/2018 Comp Metabolic Hwb114 NA 143 mEq/L 04/14/2018 Comp Metabolic Pxj295 K 4.6 mEq/L 04/14/2018 Comp Metabolic Rwr079 CL 108 mEq/L 04/14/2018 Comp Metabolic Tom302 CO2 23.0 mEq/L 04/14/2018 Comp Metabolic Nmf089 ANION GAP 17 04/14/2018 Comp Metabolic Eoa804 GLUCOSE 54 mg/dL 04/14/2018 Comp Metabolic Lud440 Creat 2.7 mg/dL 04/14/2018 Comp Metabolic Sjr703 eGFR 18 ml/min/1.73m2 04/14/2018 Comp Metabolic Sjx606 BUN 45 mg/dL 04/14/2018 Comp Metabolic Jmr738 B/C Ratio 16.9 Ratio 04/14/2018 Comp Metabolic Vzk302 CALCIUM 8.3 mg/dL 04/14/2018 Comp Metabolic Grn431 ALK PHOS 113 U/L 04/14/2018 Comp Metabolic Zdl237 AST(SGOT) 31 U/L 04/14/2018 Comp Metabolic Ehh224 ALT(SGPT) 33 U/L 04/14/2018 Comp Metabolic Ubo253 BILI T 0.5 mg/dL 04/14/2018 Comp Metabolic Trc199 ALBUMIN 3.6 g/dL 04/14/2018 Comp Metabolic Ubz510 TPRO 6.5 g/dL 04/14/2018 Comp Metabolic Ysj776 GLOB 2.9 g/dL 04/14/2018 Comp Metabolic Liv211 A/G Ratio 1.2 Ratio 04/14/2018 Comp Metabolic Fyh434 Osmo 294 mOsmo 04/14/2018 Lipid Ord30 CHOL [...] Ord28 U-Com Culture to follow 01/21/2018 %Hba1C Hby849 % HbA1c 39032- 6 7.4 % 11/03/2017 %Hba1C Obx671 Gluc Ave 166 mg/dL 11/03/2017 Urine Culture [...] 26.3 pg 09/20/2016 Cbc With Differential Ord2 [place]% 11.3 % 09/20/2016 Cbc With Differential Ord2 [...] 1.08 K/ul 09/20/2016 Cbc With Differential Ord2 [place] ABS# 0.5 K/ul 09/20/2016 Cbc With Differential Ord2 Eos ABS# 0.2 K/ul 09/20/2016 Cbc With Differential Ord2 Baso ABS# 0.1 K/ul 09/20/2016 Comp Metabolic Bib422 NA 141 mEq/L 09/20/2016 Comp Metabolic Kll438 K 5.9 Result Verified By Repeat Analysis mEq/L 09/20/2016 Comp Metabolic Kbw753 CL 110 mEq/L 09/20/2016 Comp Metabolic Cmt650 CO2 23.0 mEq/L 09/20/2016 Comp Metabolic Igp191 ANION GAP 14 09/20/2016 Comp Metabolic Jhz584 GLUCOSE 101 mg/dL 09/20/2016 Comp Metabolic Nav275 Creat 2.2 mg/dL 09/20/2016 Comp Metabolic Fal489 eGFR 23 ml/min/1.73m2 09/20/2016 Comp Metabolic Jus967 BUN 49 mg/dL 09/20/2016 Comp Metabolic Ksq123 B/C Ratio 22.0 Ratio 09/20/2016 Comp Metabolic Cag901 CALCIUM 8.7 mg/dL 09/20/2016 Comp Metabolic Tsp522 ALK PHOS 142 U/L 09/20/2016 Comp Metabolic Swt369 AST(SGOT) 26 U/L 09/20/2016 Comp Metabolic Fex891 ALT(SGPT) 27 U/L 09/20/2016 Comp Metabolic Lyf808 BILI T 0.3 mg/dL 09/20/2016 Comp Metabolic Hnf231 ALBUMIN 4.0 g/dL 09/20/2016 Comp Metabolic Usk694 TPRO 7.6 g/dL 09/20/2016 Comp Metabolic Pse958 GLOB 3.6 g/dL 09/20/2016 Comp Metabolic Hja223 A/G Ratio 1.1 Ratio 09/20/2016 Comp Metabolic Wdz445 Osmo 294 mOsmo 09/20/2016 %Hba1C Occ792 % HbA1c 21160- 6 6.7 % 09/20/2016 %Hba1C Uef857 Gluc Ave 146 mg/dL 09/20/2016 Urinalysis Ord28 [...] hours from collection if refrigerated) 05/31/2016 %Hba1C Wso101 % HbA1c 66051- 6 13.5 % 03/28/2016 %Hba1C Bto346 Gluc Ave 341 mg/dL 03/28/2016 Tsh Ord6 hTSH II 16.02 uIU/mL 03/28/2016 Comp Metabolic Agi870 NA 133 mEq/L 03/28/2016 Comp Metabolic Xfs508 K 5.4 mEq/L 03/28/2016 Comp Metabolic Qom734 CL 102 mEq/L 03/28/2016 Comp Metabolic Yoi216 CO2 22.0 mEq/L 03/28/2016 Comp Metabolic Oiq391 ANION GAP 14 03/28/2016 Comp Metabolic Czn795 GLUCOSE 432 mg/dL 03/28/2016 Comp Metabolic Ouo701 Creat 1.9 mg/dL 03/28/2016 Comp Metabolic Cwr284 eGFR 27 ml/min/1.73m2 03/28/2016 Comp Metabolic Sjh592 BUN 38 mg/dL 03/28/2016 Comp Metabolic Dlz074 B/C Ratio 19.6 Ratio 03/28/2016 Comp Metabolic Pan184 CALCIUM 8.9 mg/dL 03/28/2016 Comp Metabolic Kmq651 ALK PHOS 84 U/L 03/28/2016 Comp Metabolic Nqy411 AST(SGOT) 9 U/L 03/28/2016 Comp Metabolic Vxf250 ALT(SGPT) 6 U/L 03/28/2016 Comp Metabolic Opv444 BILI T 0.4 mg/dL 03/28/2016 Comp Metabolic Jhx699 ALBUMIN 3.6 g/dL 03/28/2016 Comp Metabolic Zyo069 TPRO 6.8 g/dL 03/28/2016 Comp Metabolic Tli470 GLOB 3.2 g/dL 03/28/2016 Comp Metabolic Jie508 A/G Ratio 1.1 Ratio 03/28/2016 Comp Metabolic Pdi847 Osmo 294 mOsmo 03/28/2016 Free T4 Pav915 FREE T4 0.72 ng/dL 03/28/2016 Comp Metabolic Kui733 NA 132 mEq/L 12/22/2015 Comp Metabolic Due267 K 4.6 mEq/L 12/22/2015 Comp Metabolic Nte360 CL 97 mEq/L 12/22/2015 Comp Metabolic Yre861 CO2 24.0 mEq/L 12/22/2015 Comp Metabolic Mcf810 ANION GAP 16 12/22/2015 Comp Metabolic Qvb896 GLUCOSE 354 mg/dL 12/22/2015 Comp Metabolic Knp945 Creat 1.8 mg/dL 12/22/2015 Comp Metabolic Uxv003 eGFR 29 ml/min/1.73m2 12/22/2015 Comp Metabolic Cyh175 BUN 47 mg/dL 12/22/2015 Comp Metabolic Red824 B/C Ratio 26.3 Ratio 12/22/2015 Comp Metabolic Kmz932 CALCIUM 9.5 mg/dL 12/22/2015 Comp Metabolic Ptg296 ALK PHOS 100 U/L 12/22/2015 Comp Metabolic Rxu017 AST(SGOT) 15 U/L 12/22/2015 Comp Metabolic Vee392 ALT(SGPT) 11 U/L 12/22/2015 Comp Metabolic Fcc265 BILI T 0.4 mg/dL 12/22/2015 Comp Metabolic Dbm069 ALBUMIN 3.7 g/dL 12/22/2015 Comp Metabolic Mun624 TPRO 7.1 g/dL 12/22/2015 Comp Metabolic Jfl989 GLOB 3.4 g/dL 12/22/2015 Comp Metabolic Wrg153 A/G Ratio 1.1 Ratio 12/22/2015 Comp Metabolic Kxt603 Osmo 291 mOsmo 12/22/2015 Microalbumin Arx269 MicroAlb 25.4 mg/dL 12/22/2015 Random Urine Protein/Creatinine Ratio Axg9453 U Prot 63.3 mg/dl 12/22/2015 Random Urine Protein/Creatinine Ratio Dgu1912 U CREAT 83.0 mg/dL 12/22/2015 Random Urine Protein/Creatinine Ratio Eqc6308 R MTP/Creat Ratio 0.76 12/22/2015 %Hba1C Tgm387 % HbA1c 07572- 6 11.9 % 12/21/2015 %Hba1C Teq014 Gluc Ave 295 mg/dL 12/21/2015 Review of [...] affect Overall: normal mood and affect 03/05/2018 Full Exam - General 1994 Psychiatric appearance Overall: well-groomed, good eye contact 03/05/2018 Full Exam - General 1994 Psychiatric speech Overall: normal quality, no aphasia 03/05/2018 Full Exam - General 1994 Ears/Nose/Throat lips/teeth/gingiva [...] sounds 10/07/2016 None Full Exam - General 1995 Neurologic mental status Overall: alert 10/07/2016 None [...] Procedure Codes Date DESTRUCT PREMALG LESION CPT-4: 62021 10/07/2016 Vital Signs Date Vital 10/27/2018 Blood Pressure 1: 128/68 Code: 8480-6 BMI: 27.6 Code: 96160-3 Heart Rate 1: 70 bpm Height: 5'3" SpO2: 94% Weight: 156 lbs 08/26/2018 Blood Pressure 1: 146/52 Code: 8480-6 BMI: 28.0 Code: 19367-5 Heart Rate 1: 68 bpm Height: 5'3" SpO2: 98% Weight: 158 lbs 07/20/2018 Blood Pressure 1: 144/70 Code: 8480-6 BMI: 28.3 Code: 53106-6 Heart Rate 1: 82 bpm Height: 5'3" SpO2: 100% Weight: 160 lbs 03/05/2018 Blood Pressure 1: 144/66 Code: 8480-6 BMI: 28.7 Code: 58895-8 Heart Rate 1: 83 bpm Height: 5'3" SpO2: 99% Weight: 162 lbs 10/30/2017 Blood Pressure 1: 122/58 Code: 8480-6 BMI: 30.1 Code: 75956-2 Heart Rate 1: 78 bpm Height: 5'3" SpO2: 98% Weight: 170 lbs 07/03/2017 Blood Pressure 1: 148/78 Code: 8480-6 BMI: 29.8 Code: 34263-7 Heart Rate 1: 80 bpm Height: 5'3" SpO2: 99% Weight: 168 lbs 04/03/2017 Blood Pressure 1: 144/64 Code: 8480-6 BMI: 29.1 Code: 37540-4 Heart Rate 1: 78 bpm Height: 5'3" SpO2: 98% Weight: 164 lbs 12/31/2016 Blood Pressure 1: 138/70 Code: 8480-6 BMI: 30.3 Code: 72103-6 Heart Rate 1: 84 bpm Height: 5'3" SpO2: 90% Weight: 171 lbs 10/07/2016 Blood Pressure 1: 146/78 Code: 8480-6 BMI: 29.4 Code: 00138-6 Heart Rate 1: 73 bpm Height: 5'3" SpO2: 99% Weight: 166 lbs 09/19/2016 Blood Pressure 1: 168/76 Code: 8480-6 BMI: 29.2 Code: 53984-5 Heart Rate 1: 88 bpm Height: 5'3" SpO2: 98% Weight: 165 lbs 07/08/2016 Blood Pressure 1: 120/80 Code: 8480-6 BMI: 28.3 Code: 58032-6 Heart Rate 1: 80 bpm Height: 5'3" SpO2: 99% Weight: 160 lbs 05/08/2016 Blood Pressure 1: 138/70 Code: 8480-6 BMI: 26.9 Code: 96324-3 Heart Rate 1: 93 bpm Height: 5'3" SpO2: 98% Weight: 152 lbs 03/28/2016 Blood Pressure 1: 144/74 Code: 8480-6 BMI: 27.6 Code: 57605-9 Heart Rate 1: 85 bpm Height: 5'3" SpO2: 99% Weight: 156 lbs 01/22/2016 Blood Pressure 1: 140/82 Code: 8480-6 BMI: 28.9 Code: 52697-1 Heart Rate 1: 104 bpm Height: 5'3" SpO2: 94% Weight: 163 lbs 12/21/2015 Blood Pressure 1: 140/90 Code: 8480-6 BMI: 28.7 Code: 40550-7 Heart Rate 1: 99 bpm Height: 5'3" SpO2: 96% Weight: 162 lbs 11/06/2015 Blood Pressure 1: 110/60 Code: 8480-6 BMI: 29.8 Code: 11870-7 Heart Rate 1: 93 bpm Height: 5'3" SpO2: 98% Weight: 168 lbs 10/20/2015 Blood Pressure 1: 152/62 Code: 8480-6 BMI: 29.8 Code: 82448-5 Heart Rate 1: 86 bpm Height: 5'3" SpO2: 96% Weight: 168 lbs 10/09/2015 Blood Pressure 1: 152/60 Code: 8480-6 BMI: 30.2 Code: 20299-0 Heart Rate 1: 83 bpm Height: 5'3" SpO2: 98% Weight: 170 lbs 8 oz 09/21/2015 Blood Pressure 1: 160/74 Code: 8480-6 Blood Pressure 1: 168/72 Code: 8480-6 BMI: 29.8 Code: 02967-8 Heart Rate 1: 82 bpm Height: 5'3" SpO2: 99% Weight: 168 lbs 08/22/2015 Blood Pressure 1: 170/82 Code: 8480-6 Blood Pressure 1: 178/78 Code: 8480-6 BMI: 29.2 Code: 22398-4 Heart Rate 1: 85 bpm Height: 5'3" SpO2: 99% Weight: 165 lbs 04/07/2015 Blood Pressure 1: 140/68 Code: 8480-6 BMI: 29.9 Code: 70562-8 Heart Rate 1: 81 bpm Height: 5'3" SpO2: 99% Weight: 169 lbs 01/02/2015 Blood Pressure 1: 162/72 Code: 8480-6 BMI: 30.3 Code: 93027-7 Heart Rate 1: 88 bpm Height: 5'3" [...] at home, see scanned readings 10/07/2016 [facility] diabetes mellitus Pertinent Findings Denies dizziness 10/07/2016 [...] data Encounters Encounter Performer Location Codes Date ([id number]) [id number] EST. PATIENT, LEVEL IV Diagnosis: Essential (primary) hypertension[ICD10: I10] Diagnosis: Type 2 diabetes mellitus with hyperglycemia[ICD10: E11.65] Diagnosis: Blister (nonthermal), right foot, initial encounter[ICD10: S90.821A] Riana Garg MD, [facility] CPT-4: 00202 10/27/2018 08222 EST. 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 PATIENT, LEVEL IV Diagnosis: Type 2 diabetes mellitus with other specified complication[ICD10: E11.69] Diagnosis: Essential (primary) hypertension[ICD10: I10] Diagnosis: Other allergic rhinitis[ICD10: J30.89] Diagnosis: Chronic kidney disease, stage 4 (severe)[ICD10: N18.4] Cordelia Garg MD, [facility] CPT-4: 93965 07/20/2018 [id number]) 18389 EST. PATIENT, LEVEL III Diagnosis: Essential (primary) hypertension[ICD10: I10] Diagnosis: Type 2 diabetes mellitus with other specified complication[ICD10: E11.69] Cordelia Garg MD, [facility] CPT-4: 88810 03/05/2018 ([id number]) 24908 EST. PATIENT, LEVEL IV Diagnosis: Type 2 diabetes mellitus with hyperglycemia[ICD10: E11.65] Diagnosis: Hypothyroidism, unspecified[ICD10: E03.9] Diagnosis: Essential (primary) hypertension[ICD10: I10] Diagnosis: Chronic kidney disease, stage 4 (severe)[ICD10: N18.4] Cordelia Garg MD, [facility] CPT-4: 55353 10/30/2017 ([id number]) 45998 EST. PATIENT, LEVEL IV Diagnosis: Hypothyroidism, unspecified[ICD10: E03.9] Diagnosis: Type 2 diabetes mellitus with hyperglycemia[ICD10: E11.65] Diagnosis: Essential (primary) hypertension[ICD10: I10] Diagnosis: Chronic kidney disease, stage 4 (severe)[ICD10: N18.4] Cordelia Garg MD, [facility] CPT-4: 92613 07/03/2017 ([id number]) 20491 EST. PATIENT, LEVEL III Diagnosis: Type 2 diabetes mellitus with hyperglycemia[ICD10: E11.65] Diagnosis: Essential (primary) hypertension[ICD10: I10] Diagnosis: Chronic kidney disease, stage 4 (severe)[ICD10: N18.4] Cordelia Garg MD, [facility] CPT-4: 95860 04/03/2017 ([id number]) 04913 EST. PATIENT, LEVEL III Diagnosis: Type 2 diabetes mellitus with hyperglycemia[ICD10: E11.65] Cordelia Garg MD, [facility] CPT-4: 94012 12/31/2016 ([id number]) 69123 EST. PATIENT, LEVEL II Diagnosis: Type 2 diabetes mellitus with hyperglycemia[ICD10: E11.65] Diagnosis: Essential (primary) hypertension[ICD10: I10] Diagnosis: Actinic keratosis[ICD10: L57.0] Cordelia Garg MD, [facility] CPT-4: 57166 10/07/2016 [id number]) 18569 EST. PATIENT, LEVEL IV Diagnosis: Type 2 diabetes mellitus with hyperglycemia[ICD10: E11.65] Diagnosis: Essential (primary) hypertension[ICD10: I10] Cordelia Garg MD, [facility] CPT-4: 20731 09/19/2016 ([id number]) 36866 EST. PATIENT, LEVEL III Diagnosis: Type 2 diabetes mellitus with hyperglycemia[ICD10: E11.65] Diagnosis: Gastro-esophageal reflux disease without esophagitis[ICD10: K21.9] Cordelia Garg MD, [facility] CPT-4: 54137 07/08/2016 ([id number]) 59209 EST. PATIENT, LEVEL III Diagnosis: Type 2 diabetes mellitus with hyperglycemia[ICD10: E11.65] Riana Garg MD, [facility] CPT-4: 56339 05/08/2016 ([id number]) 18270 EST. PATIENT, LEVEL IV Diagnosis: Essential (primary) hypertension[ICD10: I10] Diagnosis: Type 2 diabetes mellitus with hyperglycemia[ICD10: E11.65] Diagnosis: Hypothyroidism, unspecified[ICD10: E03.9] Diagnosis: Chronic kidney disease, stage 4 (severe)[ICD10: N18.4] Cordelia Garg MD, [facility] CPT-4: 82142 03/28/2016 ([id number]) 78529 EST. PATIENT, LEVEL III Diagnosis: Type 2 diabetes mellitus with hyperglycemia[ICD10: E11.65] Diagnosis: Essential (primary) hypertension[ICD10: I10] Cordelia Garg MD, [facility] CPT-4: 98801 01/22/2016 ([id number]) 51773 EST. PATIENT, LEVEL IV Diagnosis: Type 2 diabetes mellitus with hyperglycemia[ICD10: E11.65] Diagnosis: Hypothyroidism, unspecified[ICD10: E03.9] Diagnosis: Essential (primary) hypertension[ICD10: I10] Diagnosis: Chronic kidney disease, stage 4 (severe)[ICD10: N18.4] Riana Garg MD, [facility] CPT-4: 12376 12/21/2015 ([id number]) 53549 EST. PATIENT, LEVEL III Diagnosis: Type 2 diabetes mellitus with hyperglycemia[ICD10: E11.65] Riana Garg MD, [facility] CPT-4: 59689 11/06/2015 ([id number]) 41831 EST. PATIENT, LEVEL IV Diagnosis: Type 2 diabetes mellitus with hyperglycemia[ICD10: E11.65] Diagnosis: Essential (primary) hypertension[ICD10: I10] Cordelia Garg MD, [facility] CPT-4: 69812 10/20/2015 ([id number]) [id number] EST. PATIENT, LEVEL IV Diagnosis: Type 2 diabetes mellitus with hyperglycemia[ICD10: E11.65] Diagnosis: Essential (primary) hypertension[ICD10: I10] Diagnosis: Actinic keratosis[ICD10: L57.0] Riana Garg MD [place] [facility] CPT-4: 50243 10/09/2015 ([id number]) [id number] EST. PATIENT, LEVEL IV Diagnosis: Type 2 diabetes mellitus with hyperglycemia[ICD10: E11.65] Diagnosis: Essential (primary) hypertension[ICD10: I10] Riana Garg MD [place] CPT-4: 64143 09/21/2015 ([id number]) [id number] EST. PATIENT, LEVEL IV Diagnosis: Type 2 diabetes mellitus with hyperglycemia[ICD10: E11.65] Diagnosis: Hypothyroidism, unspecified[ICD10: E03.9] Diagnosis: Essential (primary) hypertension[ICD10: I10] Riana Garg MD [place] [facility] CPT-4: 41184 08/22/2015 ([id number]) 04943 EST. PATIENT, LEVEL IV Diagnosis: ESSENTIAL HYPERTENSION[ICD9: 401.9] Diagnosis: HYPERLIPIDEMIA[ICD9: 272.4] Diagnosis: DIABETES TYPE II[ICD9: 250.00] ADINA Dao MD CPT-4: 09427 04/07/2015 ([id number]) OFFICE/OUTPATIENT VISIT NEW Diagnosis: ESSENTIAL HYPERTENSION[ICD9: 401.9] Diagnosis: Diabetes mellitus out of control[ICD9: 250.02] Diagnosis: HYPOTHYROIDISM[ICD9: 244.9] Diagnosis: HYPERLIPIDEMIA[ICD9: 272.4] Riana Garg MD, [place] [facility] CPT-4: 89413 01/02/2015 Plan of Care Planned Activity Notes [...] improved control since she is at the residential. I have recommended for the patient to [...] heals. 10/27/2018 Appointment: Riana Garg WPtel: [phone] [phone] (15 min) Moderate 10/27/2018 Patient Education: Patient Medication Summary Completed 10/27/2018 Patient Education: Hypertension Completed 10/27/2018 Patient Education: Diabetes Completed 10/27/2018 Appointment: Riana Garg WPtel: [phone] [phone] (15 min) Moderate 10/14/2018 Patient Education: Patient [...] effectiveness. 08/26/2018 Appointment: Cary Rivera [phone] [place] (30 min) Complex 08/26/2018 Patient Education: Patient [...] starting to become less controlled. CKD-patient sees home health physical therapist-has decided not to do dialysis right now Allergies-rx for flonase 07/20/2018 Appointment: Cordelia Kumar WPtel: [phone] [phone] (15 min) Moderate 07/20/2018 Patient Education: [...] less controlled. 03/05/2018 Appointment: Cordelia Kumar WPtel: [phone] [phone] (30 min) Complex 03/05/2018 Patient Education: [...] voltaren gel 10/30/2017 Appointment: Cordelia Kumar [facility]Ptel: [phone] [phone] (30 min) Complex 10/30/2017 Patient Education: Patient [...] starting to become less controlled. Left thumb tsyv-iaqhehe-bhtvxluhz voltaren gel if symptoms persist 07/03/2017 Appointment: Cordelia Kumar [facility]el: [phone] [phone] (30 min) Complex 07/03/2017 Patient Education: Patient [...] to become less controlled. Chronic renal disease-sees home health physical therapist and also financial risk manager for management of anemia 04/03/2017 Visit Plan: [...] to become less controlled. Chronic renal disease-sees home health physical therapist and also financial risk manager for management of anemia 04/03/2017 Appointment: Cordelia Kumar [facility]Ptel: [phone] [phone] (30 min) Complex 04/03/2017 Patient Education: Patient [...] controlled. 12/31/2016 Appointment: Cordelia Kumar [facility]Ptel: [phone] [phone] (30 min) Complex 12/31/2016 Patient Education: Patient [...] acute concerns. 10/07/2016 Appointment: Cordelia Kumar WPtel: [facility] [phone] (30 min) Complex 10/07/2016 Appointment: Cordelia Kumar WPtel: [facility] [phone] (30 min) Complex 10/07/2016 Patient Education: Patient [...] at home. 09/19/2016 Appointment: Cordelia Kumar WPtel: [phone] [facility] [place] [address] (30 min) Complex 09/19/2016 Patient Education: Patient [...] Summary Completed 07/08/2016 Appointment: Cordelia Kumar WPtel: [phone] [phone] (30 min) Complex 06/20/2016 Visit Plan: [...] stage 4- patient to make appt with [facility] 03/28/2016 Visit Plan: Hypertension - [...] stage 4- patient to make appt with [facility] Addendum: Patient has since moved to [facility] since this office visit. They are checking [...] stage 4- patient to make appt with [facility] Addendum: Patient noncompliant with blood sugar logs-she has been instructed to test QID but only tests daily- she did not bring her log for review today.- Patient has since moved to [facility] and they are checking her blood sugars [...] stage 4- patient to make appt with [facility] Addendum: Patient noncompliant with blood sugar logs-she has been instructed to test QID but only tests daily- she did not bring her log for review today.- Patient has since moved to [facility] since this office visit. They are checking her blood sugars AC and HS and she is on a sliding scale to control her diabetes. 03/28/2016 Patient Education: Patient Medication Summary Completed 03/28/2016 Appointment: Cordelia Kumar WPtel: [phone] (30 min) Complex 03/26/2016 Appointment: Cordelia Kumar WPtel: [phone] [phone] (30 min) Complex 02/20/2016 Visit Plan: [...] home. 01/22/2016 Appointment: Cordelia Kumar WPtel: [phone] [phone] (30 min) Complex 01/22/2016 Patient Education: [...] pt has been seeing a group in [facility] - but would like to be seen in [place] to avoid excessive travel. 12/21/2015 Patient Education: Patient Medication Summary Completed 12/21/2015 Appointment: Riana Garg WPtel: [address] [place], [place] [id number] (15 min) Moderate 12/18/2015 Visit Plan: DM [...] dications. 04/07/2015 Appointment: [phone] Follow up 04/07/2015 Patient Education: [...] control. 01/02/2015 Appointment: Riana [facility]arg [facility]: [phone] [facility] [place] New Patient 01/02/2015 [...] will send a referral today to the [facility] - they are located in the [facility] at [address] [place] [address] - phone number is [phone] . Hypertension - well controlled - continue [...] disease stage 4-patient to make appt with [facility] . Hypertension - uncontrolled - the patient's [...] starting to become less controlled. Left thumb jnlo-mhppdvi-mxuntivcx voltaren gel if symptoms persist DO NOT [...] sent with patient to be filled by [facility]. . Diabetes Mellitus - controlled - [...] starting to become less controlled. CKD-patient sees home health physical therapist-has decided not to do dialysis right now [...] to become less controlled. Chronic renal disease-sees home health physical therapist and also financial risk manager for management of anemia . Hypertension - [...] to become less controlled. Chronic renal disease-sees home health physical therapist and also financial risk manager for management of anemia . Diabetes Mellitus [...] group Addendum: Patient has since moved to [facility] since this office visit. They are checking [...] disease stage 4-patient to make appt with [facility] Addendum: Patient noncompliant with blood sugar logs-she has been instructed to test QID but only tests daily-she did not bring her log for review today.- Patient has since moved to [facility] and they are checking her blood sugars [...] disease stage 4-patient to make appt with [facility] Addendum: Patient noncompliant with blood sugar logs-she has been instructed to test QID but only tests daily-she did not bring her log for review today.- Patient has since moved to [facility] since this office visit. They are checking [...] will send a referral today to the [facility] - they are located in the [facility] at [address] [place] [address] in [place] - phone number is [phone] . Hypertension - well controlled - continue [...] pt has been seeing a group in [facility] - but would like to be seen in [place] to avoid excessive travel. . Hypertension - well controlled - continue with current medications, continue with no added salt diet. Pt has been encouraged to exercise daily. The pt has been advised to call the office if there are any acute concerns about change in blood pressure readings at home. Diabetes Mellitus - improved control since she is at the residential. I have recommended for the patient to [...] heals, and keep pressure off of heals. stop the GLIMEPIRIDE make sure that you [...] next office visit . Diabetes Mellitus - NOT WELL CONTROLLED-HAVING [...] blood pressure readings at home. will have [facility] fax over blood sugar [...] readings are starting to become less controlled. increase novolog to 12 units with morning [...]
--- OUTSIDE RECORDS SUMMARY | 2019-02-16 18:49 | XMS REPORT | CCD ---
Author Author [facility] Organization [facility] Address [address] [place] [address] Phone Care Team Providers Care Founding Partner Name Role Phone PP Unavailable CCM Unavailable Summary Purpose Interface Exchange Insurance Providers Payer name Policy type / Coverage type Covered constitution party ID Effective Begin Date Effective End Date WPS Medicare Part B [id number] 2015 Unknown [facility] Assistance [id number] 2015 Unknown Family history Mother Diagnosis Age At Onset Anemia Unknown Stroke Unknown Arthritis Unknown Hypertension Unknown Father Diagnosis Age At Onset Cancer Unknown Social History Social History Element Codes Description Effective Dates Marital status Unknown 01/02/2015 Number of children Unknown 3 01/02/2015 Employment Unknown Retired 01/02/[address]: 9462953 Quit over 10 years ago 25 years ago 01/02/[address]: 665837018 Never drinks alcohol 01/02/2015 Allergies, Adverse Reactions, [...] 100 unit/mL (3 mL) subcutaneous pen RxNorm: 963042 4 Unit(s) SQ daily 10/27/2018 No Stop Date Active risperidone 0.5 mg tablet RxNorm: 920580 1 Tablet(s) PO BID 10/07/2018 02/03/2019 Active losartan 50 mg tablet RxNorm: 120160 1 Tablet(s) PO daily give if 115/50 or greater 10/07/2018 10/01/2019 Active Novolog U-100 Insulin aspart 100 unit/mL subcutaneous solution RxNorm: 634107 5-10 Unit(s) SQ QID per sliding scale and 8 units daily at noon 10/07/2018 No Stop Date Active risperidone 0.25 mg tablet RxNorm: 608815 1 Tablet(s) PO BID 09/09/2018 10/06/2018 Inactive Risperdal 0.25 mg tablet RxNorm: 867907 1 Tablet(s) PO BID 09/09/2018 10/06/2018 Inactive Voltaren 1 % topical gel RxNorm: 683216 2 Gram(s) TOP QID 10/30/2017 No Stop Date Active Novolog 100 unit/mL subcutaneous solution RxNorm: 276969 5-10 Unit(s) SQ QID per sliding scale 07/03/2017 10/06/2018 Inactive Novolog 100 unit/mL subcutaneous solution RxNorm: 334292 8 Unit(s) SQ at noon 09/27/2016 No Stop Date Active Novolog Flexpen 100 unit/mL subcutaneous RxNorm: 0260498 8 Unit(s) SQ at noon 09/27/2016 09/27/2016 Inactive Novolog Flexpen 100 unit/mL subcutaneous RxNorm: 4790398 8 Unit(s) SQ at noon 09/27/2016 09/26/2016 Inactive Novolog 100 unit/mL subcutaneous solution RxNorm: 072410 9 Unit(s) SQ at noon 09/27/2016 09/26/2016 Inactive Lantus 100 unit/mL subcutaneous solution RxNorm: 818559 25 Unit(s) SQ QHS 09/19/2016 10/06/2018 Inactive Coreg 6.25 mg tablet RxNorm: 619668 2 Tablet(s) PO BID 07/08/2016 09/30/2017 Inactive Lantus Solostar 100 unit/mL (3 mL) subcutaneous insulin pen RxNorm: 575161 25 Unit(s) SQ QAM and 50 Units at bedtime 04/05/2016 05/07/2016 Inactive Synthroid 150 mcg tablet RxNorm: 810850 1 Tablet(s) PO daily 04/05/2016 07/02/2017 Inactive Lantus Solostar 100 unit/mL (3 mL) subcutaneous insulin pen RxNorm: 991912 20 Unit(s) SQ QAM and 45 Units at bedtime 01/03/2016 01/07/2016 Inactive Synthroid 125 mcg tablet RxNorm: 127932 1 Tablet(s) PO daily 12/20/2015 12/19/2015 Inactive Synthroid 125 mcg tablet RxNorm: 031700 1 Tablet(s) PO daily 12/20/2015 04/04/2016 Inactive Novolog Flexpen 100 unit/mL subcutaneous RxNorm: 9089425 15 Unit(s) SQ am and 15 units @ noon BID 11/15/2015 05/07/2016 Inactive Lantus Solostar 100 unit/mL (3 mL) subcutaneous insulin pen RxNorm: 342248 10 Unit(s) SQ QAM and 40 Units at bedtime 11/15/2015 11/19/2015 Inactive increased from 25u Coreg 6.25 mg tablet RxNorm: 447335 1.5 Tablet(s) PO BID 10/09/2015 07/07/2016 Inactive Lantus Solostar 100 unit/mL (3 mL) subcutaneous insulin pen RxNorm: 494228 35 Unit(s) SQ QHS 09/26/2015 11/14/2015 Inactive increased from 25u Novolog Flexpen 100 unit/mL subcutaneous RxNorm: 8809909 12 Unit(s) SQ am and 12 units @ noon BID 09/25/2015 11/14/2015 Inactive Lantus Solostar 100 unit/mL (3 mL) subcutaneous insulin pen RxNorm: 243893 35 Unit(s) SQ QHS 09/21/2015 09/25/2015 Inactive Novolog Flexpen 100 unit/mL subcutaneous RxNorm: 4261960 12 Unit(s) SQ am and 12 units @ noon BID - dr to increase based on glucose readings [id number] 10.4 09/21/2015 09/24/2015 Inactive losartan 100 mg tablet RxNorm: 205995 1 Tablet(s) PO daily 09/21/2015 09/14/2016 Inactive Lantus Solostar 100 unit/mL (3 mL) subcutaneous insulin pen RxNorm: 839961 25 Unit(s) SQ QHS 08/29/2015 09/20/2015 Inactive Novolog Flexpen 100 unit/mL subcutaneous RxNorm: 6962096 8 Unit(s) SQ am and noon BID 08/29/2015 09/20/2015 Inactive Lantus Solostar 100 unit/mL (3 mL) subcutaneous insulin pen RxNorm: 215032 25 Unit(s) SQ QHS 08/25/2015 08/28/2015 Inactive losartan 50 mg tablet RxNorm: 403736 1 Tablet(s) PO daily 08/22/2015 09/20/2015 Inactive levothyroxine 125 mcg tablet RxNorm: 717230 1 Tablet(s) PO daily 01/23/2015 04/22/2015 Inactive Plavix 75 mg tablet RxNorm: 536007 1 Tablet(s) PO daily 01/02/2015 09/22/2016 Inactive Aranesp 25 mcg/mL (in polysorbate) Injection RxNorm: 005449 Milliliter(s) Inj 30mcg q 2 weeks 01/02/2015 05/08/2016 Inactive [SAVINGS FOR NON-COVERED DRUGS -- BIN:[id number], PCN: [id number], Group: [id number], ID# [id number], Questions: . THIS IS NOT INSURANCE.] aspirin 81 mg chewable tablet RxNorm: 849728 1 Tablet(s) PO daily 01/02/2015 05/07/2016 Inactive Coreg 6.25 mg tablet RxNorm: 356096 1 Tablet(s) PO BID 01/02/2015 10/08/2015 Inactive cyanocobalamin (vit B-12) 1,000 mcg tablet RxNorm: 864039 1 Tablet(s) PO daily No Start Date Active Fish Oil 300 mg-1,000 mg capsule RxNorm: 581152 2 Capsule(s) PO daily No Start Date Active Crestor 40 mg tablet RxNorm: 299808 1 Tablet(s) PO daily No Start Date Active Multiple Vitamins tablet RxNorm: 1 Tablet(s) PO daily No Start Date Active ferrous sulfate 325 mg (65 mg iron) tablet RxNorm: 560117 1 Tablet(s) PO daily No Start Date Active Aranesp 40 mcg/mL (in polysorbate) Injection RxNorm: 498811 Inject 1 Milliliter(s) SQ Every 2 weeks No Start Date Active loratadine 10 mg tablet RxNorm: 559448 1 Tablet(s) PO daily No Start Date Active levothyroxine 100 mcg tablet RxNorm: 279404 1 Tablet(s) PO daily No Start Date Active aspirin 81 mg capsule,delayed release RxNorm: 216363 1 Capsule(s) PO daily No Start Date Active calcium carbonate 200 mg calcium (500 mg) chewable tablet RxNorm: 303022 1-2 Tablet(s) PO daily No Start Date Active Lasix 20 mg tablet RxNorm: 468503 1 Tablet(s) PO daily No Start Date Active lactulose 20 gram oral packet RxNorm: 3206114 30 packet PO BID No Start Date Active ferrous sulfate 325 mg (65 mg iron) tablet RxNorm: 153947 1 Tablet(s) PO daily No Start Date 05/07/2016 Inactive sodium bicarbonate 650 mg tablet RxNorm: 029611 1 Tablet(s) PO BID No Start Date 10/06/2018 Inactive Aranesp 25 mcg/mL (in polysorbate) Injection RxNorm: 242496 injection No Start Date 01/01/2015 Inactive Vitamin D3 2,000 unit tablet RxNorm: 178538 1 Tablet(s) PO daily No Start Date 10/06/2018 Inactive lovastatin 40 mg tablet RxNorm: 640706 1 Tablet(s) PO daily No Start Date 05/07/2016 Inactive Lipitor 40 mg tablet RxNorm: 449912 1 Tablet(s) PO QHS No Start Date 01/01/2015 Inactive amlodipine 2.5 mg tablet RxNorm: 521179 1 Tablet(s) PO BID No Start Date 12/16/2014 Inactive sodium bicarbonate 325 mg tablet RxNorm: 438607 1 Tablet(s) PO BID No Start Date 05/07/2016 Inactive levothyroxine 150 mcg tablet RxNorm: 922128 1 Tablet(s) PO daily No Start Date 01/22/2015 Inactive Lantus Solostar 100 unit/mL (3 mL) subcutaneous insulin pen RxNorm: 753850 20 Unit(s) SQ QHS No Start Date 08/24/2015 Inactive Vitamin B12 Oral RxNorm: oral No Start Date 10/06/2018 Inactive Lantus 100 unit/mL subcutaneous solution RxNorm: 996323 30 Unit(s) SQ QHS No Start Date 09/18/2016 Inactive Novolog 100 unit/mL subcutaneous solution RxNorm: 110718 10 Unit(s) SQ BID in the AM and at noon No Start Date 07/02/2017 Inactive aspirin 81 mg tablet RxNorm: 970894 1 Tablet(s) PO daily No Start Date 01/01/2015 Inactive Levemir FlexTouch U-100 Insulin 100 unit/mL (3 mL) subcutaneous pen RxNorm: 249405 25 Unit(s) SQ daily No Start Date 10/26/2018 Inactive Novolog Flexpen 100 unit/mL subcutaneous RxNorm: 1148017 8 Unit(s) SQ am and noon BID No Start Date 08/28/2015 Inactive glimepiride 4 mg tablet RxNorm: 353869 1 Tablet(s) PO daily No Start Date 10/08/2015 Inactive Vitamin D3 2,000 unit capsule RxNorm: 994704 1 Capsule(s) PO daily No Start Date [...] Result Date Cbc With Differential Ord2 WBC 5.34 K/ul [...] 30.6 pg 09/16/2018 Cbc With Differential Ord2 [place]% 10.1 % 09/16/2018 Cbc With Differential Ord2 [...] 2.10 K/ul 09/16/2018 Cbc With Differential Ord2 [place] ABS# 0.5 K/ul 09/16/2018 Cbc With Differential [...] (3rd IS) 1.93 uIU/mL 08/24/2018 Free T4 Nvy184 FREE T4 1.05 ng/dL 08/24/2018 Urinalysis Ord28 [...] 29.7 pg 08/17/2018 Cbc With Differential Ord2 [place]% 9.8 % 08/17/2018 Cbc With Differential Ord2 [...] 2.14 K/ul 08/17/2018 Cbc With Differential Ord2 [place] ABS# 0.7 K/ul 08/17/2018 Cbc With Differential Ord2 Eos ABS# 0.2 K/ul 08/17/2018 Cbc With Differential Ord2 Baso ABS# 0.0 K/ul 08/17/2018 Comp Metabolic Zod481 NA 143 mEq/L 04/14/2018 Comp Metabolic Pax179 K 4.6 mEq/L 04/14/2018 Comp Metabolic Jar687 CL 108 mEq/L 04/14/2018 Comp Metabolic Uou875 CO2 23.0 mEq/L 04/14/2018 Comp Metabolic Tym400 ANION GAP 17 04/14/2018 Comp Metabolic Vbj094 GLUCOSE 54 mg/dL 04/14/2018 Comp Metabolic Alw252 Creat 2.7 mg/dL 04/14/2018 Comp Metabolic Unr237 eGFR 18 ml/min/1.73m2 04/14/2018 Comp Metabolic Anb327 BUN 45 mg/dL 04/14/2018 Comp Metabolic Jvy416 B/C Ratio 16.9 Ratio 04/14/2018 Comp Metabolic Vee493 CALCIUM 8.3 mg/dL 04/14/2018 Comp Metabolic Woo158 ALK PHOS 113 U/L 04/14/2018 Comp Metabolic Msy314 AST(SGOT) 31 U/L 04/14/2018 Comp Metabolic Hmp707 ALT(SGPT) 33 U/L 04/14/2018 Comp Metabolic Wek848 BILI T 0.5 mg/dL 04/14/2018 Comp Metabolic Wkr607 ALBUMIN 3.6 g/dL 04/14/2018 Comp Metabolic Ufv809 TPRO 6.5 g/dL 04/14/2018 Comp Metabolic Rvq022 GLOB 2.9 g/dL 04/14/2018 Comp Metabolic Ihh186 A/G Ratio 1.2 Ratio 04/14/2018 Comp Metabolic Vlx698 Osmo 294 mOsmo 04/14/2018 Lipid Ord30 CHOL [...] Ord28 U-Com Culture to follow 01/21/2018 %Hba1C Mag553 % HbA1c 54017- 6 7.4 % 11/03/2017 %Hba1C Jod037 Gluc Ave 166 mg/dL 11/03/2017 Urine Culture [...] 26.3 pg 09/20/2016 Cbc With Differential Ord2 [place]% 11.3 % 09/20/2016 Cbc With Differential Ord2 [...] 1.08 K/ul 09/20/2016 Cbc With Differential Ord2 [place] ABS# 0.5 K/ul 09/20/2016 Cbc With Differential Ord2 Eos ABS# 0.2 K/ul 09/20/2016 Cbc With Differential Ord2 Baso ABS# 0.1 K/ul 09/20/2016 Comp Metabolic Tyr096 NA 141 mEq/L 09/20/2016 Comp Metabolic Fhc947 K 5.9 Result Verified By Repeat Analysis mEq/L 09/20/2016 Comp Metabolic Pgx752 CL 110 mEq/L 09/20/2016 Comp Metabolic Vsq713 CO2 23.0 mEq/L 09/20/2016 Comp Metabolic Kdn607 ANION GAP 14 09/20/2016 Comp Metabolic Dfs512 GLUCOSE 101 mg/dL 09/20/2016 Comp Metabolic Pty058 Creat 2.2 mg/dL 09/20/2016 Comp Metabolic Gdj794 eGFR 23 ml/min/1.73m2 09/20/2016 Comp Metabolic Cvk289 BUN 49 mg/dL 09/20/2016 Comp Metabolic Mmy771 B/C Ratio 22.0 Ratio 09/20/2016 Comp Metabolic Jrw819 CALCIUM 8.7 mg/dL 09/20/2016 Comp Metabolic Wrg937 ALK PHOS 142 U/L 09/20/2016 Comp Metabolic Dll531 AST(SGOT) 26 U/L 09/20/2016 Comp Metabolic Tsk332 ALT(SGPT) 27 U/L 09/20/2016 Comp Metabolic Wfy943 BILI T 0.3 mg/dL 09/20/2016 Comp Metabolic Oag912 ALBUMIN 4.0 g/dL 09/20/2016 Comp Metabolic Ies546 TPRO 7.6 g/dL 09/20/2016 Comp Metabolic Fzt260 GLOB 3.6 g/dL 09/20/2016 Comp Metabolic Vin459 A/G Ratio 1.1 Ratio 09/20/2016 Comp Metabolic Aef044 Osmo 294 mOsmo 09/20/2016 %Hba1C Bho386 % HbA1c 42834- 6 6.7 % 09/20/2016 %Hba1C Uvn544 Gluc Ave 146 mg/dL 09/20/2016 Urinalysis Ord28 [...] hours from collection if refrigerated) 05/31/2016 %Hba1C Olj793 % HbA1c 58196- 6 13.5 % 03/28/2016 %Hba1C Hoo756 Gluc Ave 341 mg/dL 03/28/2016 Tsh Ord6 hTSH II 16.02 uIU/mL 03/28/2016 Comp Metabolic Fwx812 NA 133 mEq/L 03/28/2016 Comp Metabolic Lfh219 K 5.4 mEq/L 03/28/2016 Comp Metabolic Vdr609 CL 102 mEq/L 03/28/2016 Comp Metabolic Iqs550 CO2 22.0 mEq/L 03/28/2016 Comp Metabolic Uix317 ANION GAP 14 03/28/2016 Comp Metabolic Xnt293 GLUCOSE 432 mg/dL 03/28/2016 Comp Metabolic Ism092 Creat 1.9 mg/dL 03/28/2016 Comp Metabolic Qhw080 eGFR 27 ml/min/1.73m2 03/28/2016 Comp Metabolic Zcs865 BUN 38 mg/dL 03/28/2016 Comp Metabolic Ayj096 B/C Ratio 19.6 Ratio 03/28/2016 Comp Metabolic Inj451 CALCIUM 8.9 mg/dL 03/28/2016 Comp Metabolic Rij757 ALK PHOS 84 U/L 03/28/2016 Comp Metabolic Wnt790 AST(SGOT) 9 U/L 03/28/2016 Comp Metabolic Uhe615 ALT(SGPT) 6 U/L 03/28/2016 Comp Metabolic Bxe841 BILI T 0.4 mg/dL 03/28/2016 Comp Metabolic Rrg243 ALBUMIN 3.6 g/dL 03/28/2016 Comp Metabolic Yah355 TPRO 6.8 g/dL 03/28/2016 Comp Metabolic Wrw637 GLOB 3.2 g/dL 03/28/2016 Comp Metabolic Sll513 A/G Ratio 1.1 Ratio 03/28/2016 Comp Metabolic Kgw797 Osmo 294 mOsmo 03/28/2016 Free T4 Hiq198 FREE T4 0.72 ng/dL 03/28/2016 Comp Metabolic Fnf633 NA 132 mEq/L 12/22/2015 Comp Metabolic Jqk134 K 4.6 mEq/L 12/22/2015 Comp Metabolic Rpk019 CL 97 mEq/L 12/22/2015 Comp Metabolic Ezw716 CO2 24.0 mEq/L 12/22/2015 Comp Metabolic Ieb111 ANION GAP 16 12/22/2015 Comp Metabolic Fns219 GLUCOSE 354 mg/dL 12/22/2015 Comp Metabolic Ggf394 Creat 1.8 mg/dL 12/22/2015 Comp Metabolic Lsm521 eGFR 29 ml/min/1.73m2 12/22/2015 Comp Metabolic Eqf471 BUN 47 mg/dL 12/22/2015 Comp Metabolic Scs501 B/C Ratio 26.3 Ratio 12/22/2015 Comp Metabolic Cah831 CALCIUM 9.5 mg/dL 12/22/2015 Comp Metabolic Wfu314 ALK PHOS 100 U/L 12/22/2015 Comp Metabolic Tfi906 AST(SGOT) 15 U/L 12/22/2015 Comp Metabolic Mqi199 ALT(SGPT) 11 U/L 12/22/2015 Comp Metabolic Kvl832 BILI T 0.4 mg/dL 12/22/2015 Comp Metabolic Ymp301 ALBUMIN 3.7 g/dL 12/22/2015 Comp Metabolic Gyo499 TPRO 7.1 g/dL 12/22/2015 Comp Metabolic Pwz102 GLOB 3.4 g/dL 12/22/2015 Comp Metabolic Nab092 A/G Ratio 1.1 Ratio 12/22/2015 Comp Metabolic Wrs947 Osmo 291 mOsmo 12/22/2015 Microalbumin Ged355 MicroAlb 25.4 mg/dL 12/22/2015 Random Urine Protein/Creatinine Ratio Aiu9815 U Prot 63.3 mg/dl 12/22/2015 Random Urine Protein/Creatinine Ratio Lrg4318 U CREAT 83.0 mg/dL 12/22/2015 Random Urine Protein/Creatinine Ratio Udb4362 R MTP/Creat Ratio 0.76 12/22/2015 %Hba1C Zvz563 % HbA1c 86752- 6 11.9 % 12/21/2015 %Hba1C Mpj729 Gluc Ave 295 mg/dL 12/21/2015 Review of [...] lips 07/20/2018 None Full Exam - General 1995 Ears/Nose/Throat lips/teeth/gingiva Teeth: partially edentulous 07/20/2018 None [...] oriented to person, place and time 03/05/2018 Full Exam - General 1994 Psychiatric mood [...] Procedure Codes Date DESTRUCT PREMALG LESION CPT-4: 77540 10/07/2016 Vital Signs Date Vital 10/27/2018 Blood Pressure 1: 128/68 Code: 8480-6 BMI: 27.6 Code: 88680-1 Heart Rate 1: 70 bpm Height: 5'3" SpO2: 94% Weight: 156 lbs 08/26/2018 Blood Pressure 1: 146/52 Code: 8480-6 BMI: 28.0 Code: 95729-5 Heart Rate 1: 68 bpm Height: 5'3" SpO2: 98% Weight: 158 lbs 07/20/2018 Blood Pressure 1: 144/70 Code: 8480-6 BMI: 28.3 Code: 48923-1 Heart Rate 1: 82 bpm Height: 5'3" SpO2: 100% Weight: 160 lbs 03/05/2018 Blood Pressure 1: 144/66 Code: 8480-6 BMI: 28.7 Code: 40364-8 Heart Rate 1: 83 bpm Height: 5'3" SpO2: 99% Weight: 162 lbs 10/30/2017 Blood Pressure 1: 122/58 Code: 8480-6 BMI: 30.1 Code: 25669-2 Heart Rate 1: 78 bpm Height: 5'3" SpO2: 98% Weight: 170 lbs 07/03/2017 Blood Pressure 1: 148/78 Code: 8480-6 BMI: 29.8 Code: 36191-0 Heart Rate 1: 80 bpm Height: 5'3" SpO2: 99% Weight: 168 lbs 04/03/2017 Blood Pressure 1: 144/64 Code: 8480-6 BMI: 29.1 Code: 99568-0 Heart Rate 1: 78 bpm Height: 5'3" SpO2: 98% Weight: 164 lbs 12/31/2016 Blood Pressure 1: 138/70 Code: 8480-6 BMI: 30.3 Code: 92126-3 Heart Rate 1: 84 bpm Height: 5'3" SpO2: 90% Weight: 171 lbs 10/07/2016 Blood Pressure 1: 146/78 Code: 8480-6 BMI: 29.4 Code: 70382-7 Heart Rate 1: 73 bpm Height: 5'3" SpO2: 99% Weight: 166 lbs 09/19/2016 Blood Pressure 1: 168/76 Code: 8480-6 BMI: 29.2 Code: 54694-4 Heart Rate 1: 88 bpm Height: 5'3" SpO2: 98% Weight: 165 lbs 07/08/2016 Blood Pressure 1: 120/80 Code: 8480-6 BMI: 28.3 Code: 14937-4 Heart Rate 1: 80 bpm Height: 5'3" SpO2: 99% Weight: 160 lbs 05/08/2016 Blood Pressure 1: 138/70 Code: 8480-6 BMI: 26.9 Code: 85867-3 Heart Rate 1: 93 bpm Height: 5'3" SpO2: 98% Weight: 152 lbs 03/28/2016 Blood Pressure 1: 144/74 Code: 8480-6 BMI: 27.6 Code: 67925-7 Heart Rate 1: 85 bpm Height: 5'3" SpO2: 99% Weight: 156 lbs 01/22/2016 Blood Pressure 1: 140/82 Code: 8480-6 BMI: 28.9 Code: 69588-6 Heart Rate 1: 104 bpm Height: 5'3" SpO2: 94% Weight: 163 lbs 12/21/2015 Blood Pressure 1: 140/90 Code: 8480-6 BMI: 28.7 Code: 21444-3 Heart Rate 1: 99 bpm Height: 5'3" SpO2: 96% Weight: 162 lbs 11/06/2015 Blood Pressure 1: 110/60 Code: 8480-6 BMI: 29.8 Code: 38947-6 Heart Rate 1: 93 bpm Height: 5'3" SpO2: 98% Weight: 168 lbs 10/20/2015 Blood Pressure 1: 152/62 Code: 8480-6 BMI: 29.8 Code: 96896-6 Heart Rate 1: 86 bpm Height: 5'3" SpO2: 96% Weight: 168 lbs 10/09/2015 Blood Pressure 1: 152/60 Code: 8480-6 BMI: 30.2 Code: 18817-5 Heart Rate 1: 83 bpm Height: 5'3" SpO2: 98% Weight: 170 lbs 8 oz 09/21/2015 Blood Pressure 1: 160/74 Code: 8480-6 Blood Pressure 1: 168/72 Code: 8480-6 BMI: 29.8 Code: 92485-5 Heart Rate 1: 82 bpm Height: 5'3" SpO2: 99% Weight: 168 lbs 08/22/2015 Blood Pressure 1: 170/82 Code: 8480-6 Blood Pressure 1: 178/78 Code: 8480-6 BMI: 29.2 Code: 22046-3 Heart Rate 1: 85 bpm Height: 5'3" SpO2: 99% Weight: 165 lbs 04/07/2015 Blood Pressure 1: 140/68 Code: 8480-6 BMI: 29.9 Code: 92122-8 Heart Rate 1: 81 bpm Height: 5'3" SpO2: 99% Weight: 169 lbs 01/02/2015 Blood Pressure 1: 162/72 Code: 8480-6 BMI: 30.3 Code: 29425-5 Heart Rate 1: 88 bpm Height: 5'3" [...] data Encounters Encounter Performer Location Codes Date ([id number]) 09015 EST. PATIENT, LEVEL IV Diagnosis: Essential (primary) hypertension[ICD10: I10] Diagnosis: Type 2 diabetes mellitus with hyperglycemia[ICD10: E11.65] Diagnosis: Blister (nonthermal), right foot, initial encounter[ICD10: S90.821A] Riana Garg MD, [facility] CPT-4: 99609 10/27/2018 [id number] EST. 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 PATIENT, LEVEL IV Diagnosis: Type 2 diabetes mellitus with other specified complication[ICD10: E11.69] Diagnosis: Essential (primary) hypertension[ICD10: I10] Diagnosis: Other allergic rhinitis[ICD10: J30.89] Diagnosis: Chronic kidney disease, stage 4 (severe)[ICD10: N18.4] Cordelia Garg MD, [facility] CPT-4: 77831 07/20/2018 [id number] EST. PATIENT, LEVEL III Diagnosis: Essential (primary) hypertension[ICD10: I10] Diagnosis: Type 2 diabetes mellitus with other specified complication[ICD10: E11.69] Cordelia Garg MD, [facility] CPT-4: 64844 03/05/2018 ([id number]) 30901 EST. PATIENT, LEVEL IV Diagnosis: Type 2 diabetes mellitus with hyperglycemia[ICD10: E11.65] Diagnosis: Hypothyroidism, unspecified[ICD10: E03.9] Diagnosis: Essential (primary) hypertension[ICD10: I10] Diagnosis: Chronic kidney disease, stage 4 (severe)[ICD10: N18.4] Cordelia Garg MD, [facility] CPT-4: 29200 10/30/2017 ([id number]) 20193 EST. PATIENT, LEVEL IV Diagnosis: Hypothyroidism, unspecified[ICD10: E03.9] Diagnosis: Type 2 diabetes mellitus with hyperglycemia[ICD10: E11.65] Diagnosis: Essential (primary) hypertension[ICD10: I10] Diagnosis: Chronic kidney disease, stage 4 (severe)[ICD10: N18.4] Cordelia Garg MD, [facility] CPT-4: 25214 07/03/2017 ([id number]) 27744 EST. PATIENT, LEVEL III Diagnosis: Type 2 diabetes mellitus with hyperglycemia[ICD10: E11.65] Diagnosis: Essential (primary) hypertension[ICD10: I10] Diagnosis: Chronic kidney disease, stage 4 (severe)[ICD10: N18.4] Cordelia Garg MD, [facility] CPT-4: 17700 04/03/2017 ([id number]) 51038 EST. PATIENT, LEVEL III Diagnosis: Type 2 diabetes mellitus with hyperglycemia[ICD10: E11.65] Cordelia Garg MD, [facility] CPT-4: 54872 12/31/2016 [id number]) 52799 EST. PATIENT, LEVEL II Diagnosis: Type 2 diabetes mellitus with hyperglycemia[ICD10: E11.65] Diagnosis: Essential (primary) hypertension[ICD10: I10] Diagnosis: Actinic keratosis[ICD10: L57.0] Cordelia Garg MD, [facility] CPT-4: 75033 10/07/2016 [id number]) 55960 EST. PATIENT, LEVEL IV Diagnosis: Type 2 diabetes mellitus with hyperglycemia[ICD10: E11.65] Diagnosis: Essential (primary) hypertension[ICD10: I10] Cordelia Garg MD, [facility] CPT-4: 54655 09/19/2016 ([id number]) 59772 EST. PATIENT, LEVEL III Diagnosis: Type 2 diabetes mellitus with hyperglycemia[ICD10: E11.65] Diagnosis: Gastro-esophageal reflux disease without esophagitis[ICD10: K21.9] Cordelia Garg MD, [facility] CPT-4: 14557 07/08/2016 ([id number]) 47858 EST. PATIENT, LEVEL III Diagnosis: Type 2 diabetes mellitus with hyperglycemia[ICD10: E11.65] Riana Garg MD, [facility] CPT-4: 08206 05/08/2016 ([id number]) 29708 EST. PATIENT, LEVEL IV Diagnosis: Essential (primary) hypertension[ICD10: I10] Diagnosis: Type 2 diabetes mellitus with hyperglycemia[ICD10: E11.65] Diagnosis: Hypothyroidism, unspecified[ICD10: E03.9] Diagnosis: Chronic kidney disease, stage 4 (severe)[ICD10: N18.4] Cordelia Garg MD, [facility] CPT-4: 11700 03/28/2016 ([id number]) 91615 EST. PATIENT, LEVEL III Diagnosis: Type 2 diabetes mellitus with hyperglycemia[ICD10: E11.65] Diagnosis: Essential (primary) hypertension[ICD10: I10] Cordelia Garg MD, [facility] CPT-4: 19487 01/22/2016 ([id number]) 24922 EST. PATIENT, LEVEL IV Diagnosis: Type 2 diabetes mellitus with hyperglycemia[ICD10: E11.65] Diagnosis: Hypothyroidism, unspecified[ICD10: E03.9] Diagnosis: Essential (primary) hypertension[ICD10: I10] Diagnosis: Chronic kidney disease, stage 4 (severe)[ICD10: N18.4] Riana Garg MD, [facility] CPT-4: 38177 12/21/2015 ([id number]) 72766 EST. PATIENT, LEVEL III Diagnosis: Type 2 diabetes mellitus with hyperglycemia[ICD10: E11.65] Riana Garg MD, [facility] CPT-4: 90776 11/06/2015 ([id number]) 34629 EST. PATIENT, LEVEL IV Diagnosis: Type 2 diabetes mellitus with hyperglycemia[ICD10: E11.65] Diagnosis: Essential (primary) hypertension[ICD10: I10] Cordelia Garg MD [facility] CPT-4: 78605 10/20/2015 ([id number]) 63997 EST. PATIENT, LEVEL IV Diagnosis: Type 2 diabetes mellitus with hyperglycemia[ICD10: E11.65] Diagnosis: Essential (primary) hypertension[ICD10: I10] Diagnosis: Actinic keratosis[ICD10: L57.0] Riana Garg MD [facility] CPT-4: 73156 10/09/2015 ([id number]) 88905 EST. PATIENT, LEVEL IV Diagnosis: Type 2 diabetes mellitus with hyperglycemia[ICD10: E11.65] Diagnosis: Essential (primary) hypertension[ICD10: I10] Riana Garg MD [facility] CPT-4: 30462 09/21/2015 ([id number]) 14370 EST. PATIENT, LEVEL IV Diagnosis: Type 2 diabetes mellitus with hyperglycemia[ICD10: E11.65] Diagnosis: Hypothyroidism, unspecified[ICD10: E03.9] Diagnosis: Essential (primary) hypertension[ICD10: I10] Riana Garg MD [facility] CPT-4: 28192 08/22/2015 ([id number]) 17022 EST. PATIENT, LEVEL IV Diagnosis: ESSENTIAL HYPERTENSION[ICD9: 401.9] Diagnosis: HYPERLIPIDEMIA[ICD9: 272.4] Diagnosis: DIABETES TYPE II[ICD9: 250.00] ADINA Dao MD CPT-4: 04220 04/07/2015 ([id number]) OFFICE/OUTPATIENT VISIT NEW Diagnosis: ESSENTIAL HYPERTENSION[ICD9: 401.9] Diagnosis: Diabetes mellitus out of control[ICD9: 250.02] Diagnosis: HYPOTHYROIDISM[ICD9: 244.9] Diagnosis: HYPERLIPIDEMIA[ICD9: 272.4] Riana Garg MD [facility] CPT-4: 15488 01/02/2015 Plan of Care Planned Activity Notes [...] [facility] I have recommended for the patient to [...] and keep pressure off of heals. 10/27/2018 Patient Education: Patient Medication Summary Completed 10/27/2018 Patient Education: Hypertension Completed 10/27/2018 Patient Education: Diabetes Completed 10/27/2018 App[facility]ment[id number] ([facility] min) Moderate 10/14/2018 Patient Education: [...] effectiveness. 08/26/2018 [facility]ment[facility] [phone] [facility] [id number] ([facility] Complex 08/26/2018 Patient [...] starting to become less controlled. 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 03/05/2018 Appointment: Cordelia Kumar WPtel: 1014 [phone] (30 min) Complex 03/05/2018 Patient [...] gel 10/30/2017 Appointment: Cordelia Kumar WPtel: [phone] [phone] (30 min) Complex 10/30/2017 Patient Education: [...] starting to become less controlled. Left thumb ygsd-nhxelau-vullmgzwg voltaren gel if symptoms persist 07/03/2017 [facility]ment: [facility] [address] [phone] (30 min) Complex 07/03/2017 Patient [...] to become less controlled. Chronic renal disease-sees foreign exchange services manager and also application developer for management of anemia 04/03/2017 Visit Plan: [...] to become less controlled. Chronic renal disease-sees foreign exchange services manager and also application developer for management of anemia 04/03/2017 Appointment: Cord[facility]el[phone] (30 min) Complex 04/03/2017 Patient [...] less controlled. 12/31/2016 Appointment: Cord[facility]Ptel[phone] (30 min) Complex 12/31/2016 Patient [...] concerns. 10/07/2016 Appointment: Cord[facility]el[facility] [address] [facility] [phone] (30 min) Complex 10/07/2016 App[facility]ment: [facility]el[facility] [address] [facility] [phone] (30 min) Complex 10/07/2016 Patient [...] home. 09/19/2016 Appointment: Cordelia Kumar WPtel: 1014 [facility] [place] [address] (30 min) Complex 09/19/2016 Patient Education: Patient [...] Summary Completed 07/08/2016 Appointment: Cordelia Kumar WPtel: 1014 [phone] (30 min) Complex 06/20/2016 Visit [...] stage 4- patient to make appt with [facility] Addendum: Patient noncompliant with blood sugar logs-she has been instructed to test QID but only tests daily- she did not bring her log for review today.- Patient has since moved to [facility] since this office visit. They are checking [...] stage 4- patient to make appt with [facility] 03/28/2016 Visit Plan: Hypertension - [...] review today.- Patient has since moved to [facility] and they are checking her blood sugars [...] group Addendum: Patient has since moved to [facility] since this office visit. They are checking her blood sugars AC and HS and she is on a sliding scale to control her d iabetes. 03/28/2016 Patient Education: Patient Medication Summary Completed 03/28/2016 Appointment: Cordelia Kumar WPtel: 1012 [phone] (30 min) Complex 03/26/2016 Appointment: Cordelia Kumar WPtel: 1015 [phone] (30 min) Complex 02/20/2016 Visit Plan: [...] home. 01/22/2016 Appointment: Cordelia Kumar WPtel: 1015 [phone] (30 min) Complex 01/22/2016 Patient Education: [...] pt has been seeing a group in [facility] - but would like to be seen in [place] to avoid excessive travel. 12/21/2015 Visit Plan: [...] Completed 12/21/2015 [facility] ([facility] min) Moderate 12/18/2015 Visit [...] dications. 04/07/2015 App[facility]ment: [facility] [facility] 04/07/2015 Patient Education: [...] of control. 01/02/2015 Appointment: R[facility]arg [facility] [place] New Patient 01/02/2015 [...] Group - they are located in the [facility] at [address] [place] [address] - phone number is [phone] . Hypertension - well controlled - continue [...] pt has been seeing a group in [facility] - but would like to be seen in [place] to avoid excessive travel. Next time you have an appt - please bring in your blood glucose log sheet Dr. Garg will send a referral today to the [facility] - they are located in the [facility] at [address] [place] [address] - phone number is [phone] . Hypertension - well controlled - continue [...] review today.- Patient has since moved to [facility] since this office visit. They are checking [...] to make appt with [facility] . Hypertension - well controlled [...] disease stage 4-patient to make appt with [facility] Addendum: Patient noncompliant with blood sugar logs-she has been instructed to test QID but only tests daily-she did not bring her log for review today.- Patient has since moved to [facility] and they are checking her blood sugars [...] disease stage 4-patient to make appt with [facility] Addendum: Patient has since moved to [facility] since this office visit. They are checking [...] to become less controlled. Chronic renal disease-sees foreign exchange services manager and also application developer for management of anemia . Hypertension - [...] to become less controlled. Chronic renal disease-sees foreign exchange services manager and also application developer for management of anemia . Diabetes Mellitus [...] starting to become less controlled. CKD-patient sees foreign exchange services manager-has decided not to do dialysis right [...] starting to become less controlled. Left thumb jlfl-ntqeyqs-vhpajtahr voltaren gel if symptoms persist . Hypertension [...] increase losartan to 100mg daily will have [facility] fax over blood sugar log. [...] improved control [facility]. I have recommended for the patient to [...]
--- OUTSIDE RECORDS SUMMARY | 2019-02-16 18:53 | XMS REPORT | CCD ---
Author Author [facility] Address [address] [place] [address] Phone Care Team Providers Care Brand Sales Consultant Name Role Phone PP Unavailable CCM Unavailable Summary Purpose Interface Exchange Insurance Providers Payer name Policy type / Coverage type Covered constitution party ID Effective Begin Date Effective End Date WPS Medicare Part B [id number] 2015 Unknown [facility] [id number] 2015 Unknown Family history Mother Diagnosis Age At Onset Anemia Unknown Stroke Unknown Arthritis Unknown Hypertension Unknown Father Diagnosis Age At Onset Cancer Unknown Social History Social History Element Codes Description Effective Dates Marital status Unknown 01/02/2015 Number of children Unknown 3 01/02/2015 Employment Unknown Retired 01/02/[address]: 3532251 Quit over 10 years ago 25 years ago 01/02/[address]: 572221283 Never drinks alcohol 01/02/2015 Allergies, Adverse Reactions, [...] ICD-9: 294.8 ICD-10: F02.81 Active 08/26/2018 Unknown Essential (primary) hypertension ICD-9: 401.9 ICD-10: I10 Active 01/01/2015 Unknown Chronic kidney disease, stage 4 (severe) ICD-9: 585.4 ICD-10: N18.4 Active 03/27/2016 Unknown Other allergic rhinitis ICD-9: 477.8 ICD-10: J30.89 Active 07/20/2018 Unknown Type 2 diabetes mellitus with other specified complication ICD-9: 250.00 ICD-10: E11.69 Active 03/05/2018 Unknown Type 2 diabetes mellitus with hyperglycemia ICD-9: 250.02 ICD-10: E11.65 Active 07/07/2016 Unknown Hypothyroidism, unspecified ICD-9: 244.9 ICD-10: E03.9 [...] disturbance ICD-9: 294.8 ICD-10: F02.81 08/26/2018 Active Essential (primary) hypertension ICD-9: 401.9 ICD-10: I10 01/01/2015 Active Chronic kidney disease, stage 4 (severe) ICD-9: 585.4 ICD-10: N18.4 03/27/2016 Active Other allergic rhinitis ICD-9: 477.8 ICD-10: J30.89 07/20/2018 Active Type 2 diabetes mellitus with other specified complication ICD-9: 250.00 ICD-10: E11.69 03/05/2018 Active Type 2 diabetes mellitus with hyperglycemia ICD-9: 250.02 ICD-10: E11.65 07/07/2016 Active Hypothyroidism, unspecified ICD-9: 244.9 ICD-10: E03.9 [...] Start Date Stop Date Status Fill Instructions risperidone 0.5 mg tablet RxNorm: 565531 1 Tablet(s) PO BID 10/07/2018 02/03/2019 Active losartan 50 mg tablet RxNorm: 726180 1 Tablet(s) PO daily give if 115/50 or greater 10/07/2018 10/01/2019 Active Novolog U-100 Insulin aspart 100 unit/mL subcutaneous solution RxNorm: 604959 5-10 Unit(s) SQ QID per sliding scale and 8 units daily at noon 10/07/2018 No Stop Date Active risperidone 0.25 mg tablet RxNorm: 324078 1 Tablet(s) PO BID 09/09/2018 10/06/2018 Inactive Risperdal 0.25 mg tablet RxNorm: 187285 1 Tablet(s) PO BID 09/09/2018 10/06/2018 Inactive Voltaren 1 % topical gel RxNorm: 436640 2 Gram(s) TOP QID 10/30/2017 No Stop Date Active Novolog 100 unit/mL subcutaneous solution RxNorm: 210106 5-10 Unit(s) SQ QID per sliding scale 07/03/2017 10/06/2018 Inactive Novolog 100 unit/mL subcutaneous solution RxNorm: 931204 8 Unit(s) SQ at noon 09/27/2016 No Stop Date Active Novolog Flexpen 100 unit/mL subcutaneous RxNorm: 6075375 8 Unit(s) SQ at noon 09/27/2016 09/27/2016 Inactive Novolog Flexpen 100 unit/mL subcutaneous RxNorm: 7709268 8 Unit(s) SQ at noon 09/27/2016 09/26/2016 Inactive Novolog 100 unit/mL subcutaneous solution RxNorm: 707101 9 Unit(s) SQ at noon 09/27/2016 09/26/2016 Inactive Lantus 100 unit/mL subcutaneous solution RxNorm: 166121 25 Unit(s) SQ QHS 09/19/2016 10/06/2018 Inactive Coreg 6.25 mg tablet RxNorm: 963687 2 Tablet(s) PO BID 07/08/2016 09/30/2017 Inactive Lantus Solostar 100 unit/mL (3 mL) subcutaneous insulin pen RxNorm: 845054 25 Unit(s) SQ QAM and 50 Units at bedtime 04/05/2016 05/07/2016 Inactive Synthroid 150 mcg tablet RxNorm: 964514 1 Tablet(s) PO daily 04/05/2016 07/02/2017 Inactive Lantus Solostar 100 unit/mL (3 mL) subcutaneous insulin pen RxNorm: 256641 20 Unit(s) SQ QAM and 45 Units at bedtime 01/03/2016 01/07/2016 Inactive Synthroid 125 mcg tablet RxNorm: 232447 1 Tablet(s) PO daily 12/20/2015 12/19/2015 Inactive Synthroid 125 mcg tablet RxNorm: 212136 1 Tablet(s) PO daily 12/20/2015 04/04/2016 Inactive Novolog Flexpen 100 unit/mL subcutaneous RxNorm: 3853359 15 Unit(s) SQ am and 15 units @ noon BID 11/15/2015 05/07/2016 Inactive Lantus Solostar 100 unit/mL (3 mL) subcutaneous insulin pen RxNorm: 977528 10 Unit(s) SQ QAM and 40 Units at bedtime 11/15/2015 11/19/2015 Inactive increased from 25u Coreg 6.25 mg tablet RxNorm: 856929 1.5 Tablet(s) PO BID 10/09/2015 07/07/2016 Inactive Lantus Solostar 100 unit/mL (3 mL) subcutaneous insulin pen RxNorm: 988951 35 Unit(s) SQ QHS 09/26/2015 11/14/2015 Inactive increased from 25u Novolog Flexpen 100 unit/mL subcutaneous RxNorm: 2584767 12 Unit(s) SQ am and 12 units @ noon BID 09/25/2015 11/14/2015 Inactive Lantus Solostar 100 unit/mL (3 mL) subcutaneous insulin pen RxNorm: 017978 35 Unit(s) SQ QHS 09/21/2015 09/25/2015 Inactive Novolog Flexpen 100 unit/mL subcutaneous RxNorm: 1596531 12 Unit(s) SQ am and 12 units @ noon BID - dr to increase based on glucose readings [id number] 10.4 09/21/2015 09/24/2015 Inactive losartan 100 mg tablet RxNorm: 878301 1 Tablet(s) PO daily 09/21/2015 09/14/2016 Inactive Lantus Solostar 100 unit/mL (3 mL) subcutaneous insulin pen RxNorm: 781079 25 Unit(s) SQ QHS 08/29/2015 09/20/2015 Inactive Novolog Flexpen 100 unit/mL subcutaneous RxNorm: 6190088 8 Unit(s) SQ am and noon BID 08/29/2015 09/20/2015 Inactive Lantus Solostar 100 unit/mL (3 mL) subcutaneous insulin pen RxNorm: 178829 25 Unit(s) SQ QHS 08/25/2015 08/28/2015 Inactive losartan 50 mg tablet RxNorm: 860126 1 Tablet(s) PO daily 08/22/2015 09/20/2015 Inactive levothyroxine 125 mcg tablet RxNorm: 009634 1 Tablet(s) PO daily 01/23/2015 04/22/2015 Inactive Plavix 75 mg tablet RxNorm: 425250 1 Tablet(s) PO daily 01/02/2015 09/22/2016 Inactive Aranesp 25 mcg/mL (in polysorbate) Injection RxNorm: 460038 Milliliter(s) Inj 30mcg q 2 weeks 01/02/2015 05/08/2016 Inactive [SAVINGS FOR NON-COVERED DRUGS -- BIN:[id number], PCN: [id number], Group: [id number], ID# [id number], Questions: . THIS IS NOT INSURANCE.] aspirin 81 mg chewable tablet RxNorm: 313636 1 Tablet(s) PO daily 01/02/2015 05/07/2016 Inactive Coreg 6.25 mg tablet RxNorm: 534700 1 Tablet(s) PO BID 01/02/2015 10/08/2015 Inactive cyanocobalamin (vit B-12) 1,000 mcg tablet RxNorm: 836892 1 Tablet(s) PO daily No Start Date Active Fish Oil 300 mg-1,000 mg capsule RxNorm: 136864 2 Capsule(s) PO daily No Start Date Active Crestor 40 mg tablet RxNorm: 257706 1 Tablet(s) PO daily No Start Date Active Multiple Vitamins tablet RxNorm: 1 Tablet(s) PO daily No Start Date Active ferrous sulfate 325 mg (65 mg iron) tablet RxNorm: 176654 1 Tablet(s) PO daily No Start Date Active Aranesp 40 mcg/mL (in polysorbate) Injection RxNorm: 444968 Inject 1 Milliliter(s) SQ Every 2 weeks No Start Date Active loratadine 10 mg tablet RxNorm: 841088 1 Tablet(s) PO daily No Start Date Active levothyroxine 100 mcg tablet RxNorm: 509628 1 Tablet(s) PO daily No Start Date Active aspirin 81 mg capsule,delayed release RxNorm: 532694 1 Capsule(s) PO daily No Start Date Active Levemir FlexTouch U-100 Insulin 100 unit/mL (3 mL) subcutaneous pen RxNorm: 330472 25 Unit(s) SQ daily No Start Date Active calcium carbonate 200 mg calcium (500 mg) chewable tablet RxNorm: 354244 1-2 Tablet(s) PO daily No Start Date Active Lasix 20 mg tablet RxNorm: 066559 1 Tablet(s) PO daily No Start Date Active lactulose 20 gram oral packet RxNorm: 7781812 30 packet PO BID No Start Date Active ferrous sulfate 325 mg (65 mg iron) tablet RxNorm: 296174 1 Tablet(s) PO daily No Start Date 05/07/2016 Inactive sodium bicarbonate 650 mg tablet RxNorm: 122166 1 Tablet(s) PO BID No Start Date 10/06/2018 Inactive Aranesp 25 mcg/mL (in polysorbate) Injection RxNorm: 317387 injection No Start Date 01/01/2015 Inactive Vitamin D3 2,000 unit tablet RxNorm: 583850 1 Tablet(s) PO daily No Start Date 10/06/2018 Inactive lovastatin 40 mg tablet RxNorm: 038958 1 Tablet(s) PO daily No Start Date 05/07/2016 Inactive Lipitor 40 mg tablet RxNorm: 372307 1 Tablet(s) PO QHS No Start Date 01/01/2015 Inactive amlodipine 2.5 mg tablet RxNorm: 180118 1 Tablet(s) PO BID No Start Date 12/16/2014 Inactive sodium bicarbonate 325 mg tablet RxNorm: 674279 1 Tablet(s) PO BID No Start Date 05/07/2016 Inactive levothyroxine 150 mcg tablet RxNorm: 076568 1 Tablet(s) PO daily No Start Date 01/22/2015 Inactive Lantus Solostar 100 unit/mL (3 mL) subcutaneous insulin pen RxNorm: 057909 20 Unit(s) SQ QHS No Start Date 08/24/2015 Inactive Vitamin B12 Oral RxNorm: oral No Start Date 10/06/2018 Inactive Lantus 100 unit/mL subcutaneous solution RxNorm: 953712 30 Unit(s) SQ QHS No Start Date 09/18/2016 Inactive Novolog 100 unit/mL subcutaneous solution RxNorm: 222416 10 Unit(s) SQ BID in the AM and at noon No Start Date 07/02/2017 Inactive aspirin 81 mg tablet RxNorm: 255854 1 Tablet(s) PO daily No Start Date 01/01/2015 Inactive Novolog Flexpen 100 unit/mL subcutaneous RxNorm: 1964154 8 Unit(s) SQ am and noon BID No Start Date 08/28/2015 Inactive glimepiride 4 mg tablet RxNorm: 631281 1 Tablet(s) PO daily No Start Date 10/08/2015 Inactive Vitamin D3 2,000 unit capsule RxNorm: 151883 1 Capsule(s) PO daily No Start Date 05/08/2016 Inactive metoprolol tartrate 12.5 Tablet RxNorm: 1 Tablet(s) PO BID No Start Date 12/16/2014 Inactive Medication Administered No Medication Administered data Immunizations Vaccine Codes Date Status Influenza CVX: 141 06/06/2017 completed Assessments Condition Codes Effective Dates Anemia, unspecified ICD-10: D64.9 ICD-9: 285.9 09/18/2018 Dysuria ICD-10: R30.0 ICD-9: 788.1 09/11/2018 Dementia in other diseases classified elsewhere with behavioral disturbance ICD-10: F02.81 ICD-9: 294.8 08/26/2018 Essential (primary) hypertension ICD-10: I10 ICD-9: 401.9 07/20/2018 Type 2 diabetes mellitus with other specified complication ICD- 10: E11.69 ICD-9: 250.00 07/20/2018 Other allergic rhinitis ICD-10: J30.89 ICD-9: 477.8 07/20/2018 Chronic kidney disease, stage 4 (severe) ICD-10: N18.4 ICD-9: 585.4 07/20/2018 Hypothyroidism, unspecified ICD-10: E03.9 ICD-9: 244.9 10/30/2017 Type 2 diabetes mellitus with hyperglycemia ICD-10: E11.65 ICD-9: 250.02 10/30/2017 Actinic keratosis ICD-10: L57.0 ICD-9: 702.0 10/07/2016 Gastro-esophageal reflux disease without esophagitis ICD-10: K21.9 ICD-9: 530.81 07/08/2016 HYPERLIPIDEMIA ICD-9: 272.4 04/07/2015 DIABETES TYPE II ICD-9: 250.00 04/07/2015 ESSENTIAL HYPERTENSION ICD-9: 401.9 04/07/2015 HYPOTHYROIDISM ICD-9: 244.9 01/02/2015 Diabetes mellitus out of control ICD-9: 250.02 01/02/2015 Reason For Visit Reason For Visit Effective Dates Notes anxiety 08/26/2018 headache 07/20/2018 diabetes mellitus 03/05/2018 [...] 30.6 pg 09/16/2018 Cbc With Differential Ord2 [place]% 10.1 % 09/16/2018 Cbc With Differential Ord2 [...] 2.10 K/ul 09/16/2018 Cbc With Differential Ord2 [place] ABS# 0.5 K/ul 09/16/2018 Cbc With Differential [...] (3rd IS) 1.93 uIU/mL 08/24/2018 Free T4 Rji810 FREE T4 1.05 ng/dL 08/24/2018 Urinalysis Ord28 [...] 30.3 % 08/17/2018 Cbc With Differential Ord2 [place]% 9.8 % 08/17/2018 Cbc With Differential Ord2 MCH 29.7 pg 08/17/2018 Cbc With Differential Ord2 MCHC 31.6 pg 08/17/2018 Cbc With Differential Ord2 Eos% 2.5 % 08/17/2018 Cbc With Differential Ord2 PLT 128 K/ul 08/17/2018 Cbc With Differential Ord2 Baso% 0.6 % 08/17/2018 Cbc With Differential Ord2 Neut ABS# 4.01 K/ul 08/17/2018 Cbc With Differential Ord2 RDW 16.2 % 08/17/2018 Cbc With Differential Ord2 Lymph ABS# 2.14 K/ul 08/17/2018 Cbc With Differential Ord2 [place] ABS# 0.7 K/ul 08/17/2018 Cbc With Differential Ord2 Eos ABS# 0.2 K/ul 08/17/2018 Cbc With Differential Ord2 Baso ABS# 0.0 K/ul 08/17/2018 Comp Metabolic Mgt700 NA 143 mEq/L 04/14/2018 Comp Metabolic Fiu015 K 4.6 mEq/L 04/14/2018 Comp Metabolic Kzw727 CL 108 mEq/L 04/14/2018 Comp Metabolic Ter395 CO2 23.0 mEq/L 04/14/2018 Comp Metabolic Wig404 ANION GAP 17 04/14/2018 Comp Metabolic Wsy439 GLUCOSE 54 mg/dL 04/14/2018 Comp Metabolic Uvo582 Creat 2.7 mg/dL 04/14/2018 Comp Metabolic Hvf260 eGFR 18 ml/min/1.73m2 04/14/2018 Comp Metabolic Sau582 BUN 45 mg/dL 04/14/2018 Comp Metabolic Xzx666 B/C Ratio 16.9 Ratio 04/14/2018 Comp Metabolic Lzq179 CALCIUM 8.3 mg/dL 04/14/2018 Comp Metabolic Wpm246 ALK PHOS 113 U/L 04/14/2018 Comp Metabolic Izq479 AST(SGOT) 31 U/L 04/14/2018 Comp Metabolic Idf171 ALT(SGPT) 33 U/L 04/14/2018 Comp Metabolic Nsp517 BILI T 0.5 mg/dL 04/14/2018 Comp Metabolic Dtc073 ALBUMIN 3.6 g/dL 04/14/2018 Comp Metabolic Lea381 TPRO 6.5 g/dL 04/14/2018 Comp Metabolic Zxi668 GLOB 2.9 g/dL 04/14/2018 Comp Metabolic Gph487 A/G Ratio 1.2 Ratio 04/14/2018 Comp Metabolic Uvz049 Osmo 294 mOsmo 04/14/2018 Lipid Ord30 CHOL [...] Ord28 U-Com Culture to follow 01/21/2018 %Hba1C Dyt418 % HbA1c 75778- 6 7.4 % 11/03/2017 %Hba1C Zny260 Gluc Ave 166 mg/dL 11/03/2017 Urine Culture [...] follow 07/29/2017 Urinalysis Ord28 U-Yeast NEGATIVE 07/29/2017 %Hba1C Lkd330 % HbA1c 91280- 6 6.7 % 09/20/2016 %Hba1C Fda474 Gluc Ave 146 mg/dL 09/20/2016 Cbc With Differential Ord2 WBC 4.80 K/ul 09/20/2016 Cbc With Differential Ord2 RBC 3.76 M/ul 09/20/2016 Cbc With Differential Ord2 HGB 9.9 g/dl 09/20/2016 Cbc With Differential Ord2 HCT 32.0 % 09/20/2016 Cbc With Differential Ord2 Neut% 60.5 % 09/20/2016 Cbc With Differential Ord2 Lymph% 22.5 % 09/20/2016 Cbc With Differential Ord2 MCV 85.1 fl 09/20/2016 Cbc With Differential Ord2 MCH 26.3 pg 09/20/2016 Cbc With Differential Ord2 [place]% 11.3 % 09/20/2016 Cbc With Differential Ord2 [...] 1.08 K/ul 09/20/2016 Cbc With Differential Ord2 [place] ABS# 0.5 K/ul 09/20/2016 Cbc With Differential Ord2 Eos ABS# 0.2 K/ul 09/20/2016 Cbc With Differential Ord2 Baso ABS# 0.1 K/ul 09/20/2016 Comp Metabolic Hqz019 NA 141 mEq/L 09/20/2016 Comp Metabolic Ydv313 K 5.9 Result Verified By Repeat Analysis mEq/L 09/20/2016 Comp Metabolic Tyd858 CL 110 mEq/L 09/20/2016 Comp Metabolic Fft858 CO2 23.0 mEq/L 09/20/2016 Comp Metabolic Zrn526 ANION GAP 14 09/20/2016 Comp Metabolic Kiq359 GLUCOSE 101 mg/dL 09/20/2016 Comp Metabolic Jlg045 Creat 2.2 mg/dL 09/20/2016 Comp Metabolic Vkr435 eGFR 23 ml/min/1.73m2 09/20/2016 Comp Metabolic Ouu491 BUN 49 mg/dL 09/20/2016 Comp Metabolic Gnq918 B/C Ratio 22.0 Ratio 09/20/2016 Comp Metabolic Rsm261 CALCIUM 8.7 mg/dL 09/20/2016 Comp Metabolic Exu930 ALK PHOS 142 U/L 09/20/2016 Comp Metabolic Vji467 AST(SGOT) 26 U/L 09/20/2016 Comp Metabolic Hdy581 ALT(SGPT) 27 U/L 09/20/2016 Comp Metabolic Zrb084 BILI T 0.3 mg/dL 09/20/2016 Comp Metabolic Sob226 ALBUMIN 4.0 g/dL 09/20/2016 Comp Metabolic Xms157 TPRO 7.6 g/dL 09/20/2016 Comp Metabolic Bmj529 GLOB 3.6 g/dL 09/20/2016 Comp Metabolic Ijd115 A/G Ratio 1.1 Ratio 09/20/2016 Comp Metabolic Atr799 Osmo 294 mOsmo 09/20/2016 Urinalysis Ord28 U-Color Yellow 05/31/2016 Urinalysis [...] hours from collection if refrigerated) 05/31/2016 %Hba1C Wkw994 % HbA1c 51341- 6 13.5 % 03/28/2016 %Hba1C Xgu178 Gluc Ave 341 mg/dL 03/28/2016 Tsh Ord6 hTSH II 16.02 uIU/mL 03/28/2016 Comp Metabolic Pbz627 NA 133 mEq/L 03/28/2016 Comp Metabolic Fef536 K 5.4 mEq/L 03/28/2016 Comp Metabolic Erj095 CL 102 mEq/L 03/28/2016 Comp Metabolic Pbp015 CO2 22.0 mEq/L 03/28/2016 Comp Metabolic Ajj092 ANION GAP 14 03/28/2016 Comp Metabolic Jse948 GLUCOSE 432 mg/dL 03/28/2016 Comp Metabolic Sgn280 Creat 1.9 mg/dL 03/28/2016 Comp Metabolic Lpq987 eGFR 27 ml/min/1.73m2 03/28/2016 Comp Metabolic Pik201 BUN 38 mg/dL 03/28/2016 Comp Metabolic Onf928 B/C Ratio 19.6 Ratio 03/28/2016 Comp Metabolic Sji167 CALCIUM 8.9 mg/dL 03/28/2016 Comp Metabolic Twr244 ALK PHOS 84 U/L 03/28/2016 Comp Metabolic Lgr978 AST(SGOT) 9 U/L 03/28/2016 Comp Metabolic Hgb334 ALT(SGPT) 6 U/L 03/28/2016 Comp Metabolic Cpx416 BILI T 0.4 mg/dL 03/28/2016 Comp Metabolic Qii586 ALBUMIN 3.6 g/dL 03/28/2016 Comp Metabolic Mro394 TPRO 6.8 g/dL 03/28/2016 Comp Metabolic Zvm483 GLOB 3.2 g/dL 03/28/2016 Comp Metabolic Qca313 A/G Ratio 1.1 Ratio 03/28/2016 Comp Metabolic Bap432 Osmo 294 mOsmo 03/28/2016 Free T4 Xaa582 FREE T4 0.72 ng/dL 03/28/2016 Random Urine Protein/Creatinine Ratio Mzs8180 U Prot 63.3 mg/dl 12/22/2015 Random Urine Protein/Creatinine Ratio Kjh3112 U CREAT 83.0 mg/dL 12/22/2015 Random Urine Protein/Creatinine Ratio Utd4207 R MTP/Creat Ratio 0.76 12/22/2015 Microalbumin Oul064 MicroAlb 25.4 mg/dL 12/22/2015 Comp Metabolic Ilp468 NA 132 mEq/L 12/22/2015 Comp Metabolic Iel704 K 4.6 mEq/L 12/22/2015 Comp Metabolic Cxw974 CL 97 mEq/L 12/22/2015 Comp Metabolic Mzh589 CO2 24.0 mEq/L 12/22/2015 Comp Metabolic Ebx493 ANION GAP 16 12/22/2015 Comp Metabolic Ueb604 GLUCOSE 354 mg/dL 12/22/2015 Comp Metabolic Gur642 Creat 1.8 mg/dL 12/22/2015 Comp Metabolic Gry202 eGFR 29 ml/min/1.73m2 12/22/2015 Comp Metabolic Byg397 BUN 47 mg/dL 12/22/2015 Comp Metabolic Hkg698 B/C Ratio 26.3 Ratio 12/22/2015 Comp Metabolic Rat634 CALCIUM 9.5 mg/dL 12/22/2015 Comp Metabolic Jze406 ALK PHOS 100 U/L 12/22/2015 Comp Metabolic Sim755 AST(SGOT) 15 U/L 12/22/2015 Comp Metabolic Zfi286 ALT(SGPT) 11 U/L 12/22/2015 Comp Metabolic Sif897 BILI T 0.4 mg/dL 12/22/2015 Comp Metabolic Ahg966 ALBUMIN 3.7 g/dL 12/22/2015 Comp Metabolic Xir791 TPRO 7.1 g/dL 12/22/2015 Comp Metabolic Hxz224 GLOB 3.4 g/dL 12/22/2015 Comp Metabolic Meb038 A/G Ratio 1.1 Ratio 12/22/2015 Comp Metabolic Fpy709 Osmo 291 mOsmo 12/22/2015 %Hba1C Kze935 % HbA1c 13010- 6 11.9 % 12/21/2015 %Hba1C Gws597 Gluc Ave 295 mg/dL 12/21/2015 Review of Systems System Result Effective Dates Constitutional No recent illness 08/26/2018 Constitutional No [...] Procedure Codes Date DESTRUCT PREMALG LESION CPT-4: 86227 10/07/2016 Vital Signs Date Vital 08/26/2018 Blood Pressure 1: 146/52 Code: 8480-6 BMI: 28.0 Code: 25948-3 Heart Rate 1: 68 bpm Height: 5'3" SpO2: 98% Weight: 158 lbs 07/20/2018 Blood Pressure 1: 144/70 Code: 8480-6 BMI: 28.3 Code: 87465-4 Heart Rate 1: 82 bpm Height: 5'3" SpO2: 100% Weight: 160 lbs 03/05/2018 Blood Pressure 1: 144/66 Code: 8480-6 BMI: 28.7 Code: 63567-5 Heart Rate 1: 83 bpm Height: 5'3" SpO2: 99% Weight: 162 lbs 10/30/2017 Blood Pressure 1: 122/58 Code: 8480-6 BMI: 30.1 Code: 64936-6 Heart Rate 1: 78 bpm Height: 5'3" SpO2: 98% Weight: 170 lbs 07/03/2017 Blood Pressure 1: 148/78 Code: 8480-6 BMI: 29.8 Code: 04623-2 Heart Rate 1: 80 bpm Height: 5'3" SpO2: 99% Weight: 168 lbs 04/03/2017 Blood Pressure 1: 144/64 Code: 8480-6 BMI: 29.1 Code: 98154-5 Heart Rate 1: 78 bpm Height: 5'3" SpO2: 98% Weight: 164 lbs 12/31/2016 Blood Pressure 1: 138/70 Code: 8480-6 BMI: 30.3 Code: 67091-1 Heart Rate 1: 84 bpm Height: 5'3" SpO2: 90% Weight: 171 lbs 10/07/2016 Blood Pressure 1: 146/78 Code: 8480-6 BMI: 29.4 Code: 84352-7 Heart Rate 1: 73 bpm Height: 5'3" SpO2: 99% Weight: 166 lbs 09/19/2016 Blood Pressure 1: 168/76 Code: 8480-6 BMI: 29.2 Code: 15861-6 Heart Rate 1: 88 bpm Height: 5'3" SpO2: 98% Weight: 165 lbs 07/08/2016 Blood Pressure 1: 120/80 Code: 8480-6 BMI: 28.3 Code: 46387-4 Heart Rate 1: 80 bpm Height: 5'3" SpO2: 99% Weight: 160 lbs 05/08/2016 Blood Pressure 1: 138/70 Code: 8480-6 BMI: 26.9 Code: 59019-3 Heart Rate 1: 93 bpm Height: 5'3" SpO2: 98% Weight: 152 lbs 03/28/2016 Blood Pressure 1: 144/74 Code: 8480-6 BMI: 27.6 Code: 59189-3 Heart Rate 1: 85 bpm Height: 5'3" SpO2: 99% Weight: 156 lbs 01/22/2016 Blood Pressure 1: 140/82 Code: 8480-6 BMI: 28.9 Code: 20053-6 Heart Rate 1: 104 bpm Height: 5'3" SpO2: 94% Weight: 163 lbs 12/21/2015 Blood Pressure 1: 140/90 Code: 8480-6 BMI: 28.7 Code: 96200-2 Heart Rate 1: 99 bpm Height: 5'3" SpO2: 96% Weight: 162 lbs 11/06/2015 Blood Pressure 1: 110/60 Code: 8480-6 BMI: 29.8 Code: 18663-1 Heart Rate 1: 93 bpm Height: 5'3" SpO2: 98% Weight: 168 lbs 10/20/2015 Blood Pressure 1: 152/62 Code: 8480-6 BMI: 29.8 Code: 29882-2 Heart Rate 1: 86 bpm Height: 5'3" SpO2: 96% Weight: 168 lbs 10/09/2015 Blood Pressure 1: 152/60 Code: 8480-6 BMI: 30.2 Code: 82056-7 Heart Rate 1: 83 bpm Height: 5'3" SpO2: 98% Weight: 170 lbs 8 oz 09/21/2015 Blood Pressure 1: 160/74 Code: 8480-6 Blood Pressure 1: 168/72 Code: 8480-6 BMI: 29.8 Code: 48837-4 Heart Rate 1: 82 bpm Height: 5'3" SpO2: 99% Weight: 168 lbs 08/22/2015 Blood Pressure 1: 170/82 Code: 8480-6 Blood Pressure 1: 178/78 Code: 8480-6 BMI: 29.2 Code: 11888-6 Heart Rate 1: 85 bpm Height: 5'3" SpO2: 99% Weight: 165 lbs 04/07/2015 Blood Pressure 1: 140/68 Code: 8480-6 BMI: 29.9 Code: 04132-9 Heart Rate 1: 81 bpm Height: 5'3" SpO2: 99% Weight: 169 lbs 01/02/2015 Blood Pressure 1: 162/72 Code: 8480-6 BMI: 30.3 Code: 41137-6 Heart Rate 1: 88 bpm Height: 5'3" SpO2: 98% Weight: 171 lbs Functional Status No Functional Status data History of Present Illness Symptom Name Status Result Effective Date Notes Quality obsessive-compulsive 08/26/2018 None Onset and Resolution [...] data Encounters Encounter Performer Location Codes Date 58287 EST. PATIENT, LEVEL III Diagnosis: Dementia in other diseases classified elsewhere with behavioral disturbance[ICD10: F02.81] Cary Garg MD, [facility] CPT-4: 46765 08/26/2018 ([id number]) 85134 EST. PATIENT, LEVEL IV Diagnosis: Type 2 diabetes mellitus with other specified complication[ICD10: E11.69] Diagnosis: Essential (primary) hypertension[ICD10: I10] Diagnosis: Other allergic rhinitis[ICD10: J30.89] Diagnosis: Chronic kidney disease, stage 4 (severe)[ICD10: N18.4] Cordelia Garg MD, [facility] CPT-4: 79095 07/20/2018 ([id number]) 86251 EST. PATIENT, LEVEL III Diagnosis: Essential (primary) hypertension[ICD10: I10] Diagnosis: Type 2 diabetes mellitus with other specified complication[ICD10: E11.69] Cordelia Garg MD, [facility] CPT-4: 48822 03/05/2018 ([id number]) 92324 EST. PATIENT, LEVEL IV Diagnosis: Type 2 diabetes mellitus with hyperglycemia[ICD10: E11.65] Diagnosis: Hypothyroidism, unspecified[ICD10: E03.9] Diagnosis: Essential (primary) hypertension[ICD10: I10] Diagnosis: Chronic kidney disease, stage 4 (severe)[ICD10: N18.4] Cordelia Garg MD, [facility] CPT-4: 95347 10/30/2017 ([id number]) 03754 EST. PATIENT, LEVEL IV Diagnosis: Hypothyroidism, unspecified[ICD10: E03.9] Diagnosis: Type 2 diabetes mellitus with hyperglycemia[ICD10: E11.65] Diagnosis: Essential (primary) hypertension[ICD10: I10] Diagnosis: Chronic kidney disease, stage 4 (severe)[ICD10: N18.4] Cordelia Garg MD, [facility] CPT-4: 98915 07/03/2017 ([id number]) 94916 EST. PATIENT, LEVEL III Diagnosis: Type 2 diabetes mellitus with hyperglycemia[ICD10: E11.65] Diagnosis: Essential (primary) hypertension[ICD10: I10] Diagnosis: Chronic kidney disease, stage 4 (severe)[ICD10: N18.4] Cordelia Garg MD, [facility] CPT-4: 49113 04/03/2017 ([id number]) 18145 EST. PATIENT, LEVEL III Diagnosis: Type 2 diabetes mellitus with hyperglycemia[ICD10: E11.65] Cordelia Garg MD, [facility] CPT-4: 53831 12/31/2016 ([id number]) 30580 EST. PATIENT, LEVEL II Diagnosis: Type 2 diabetes mellitus with hyperglycemia[ICD10: E11.65] Diagnosis: Essential (primary) hypertension[ICD10: I10] Diagnosis: Actinic keratosis[ICD10: L57.0] Cordelia Garg MD, [facility] CPT-4: 29317 10/07/2016 ([id number]) 43522 EST. PATIENT, LEVEL IV Diagnosis: Type 2 diabetes mellitus with hyperglycemia[ICD10: E11.65] Diagnosis: Essential (primary) hypertension[ICD10: I10] Cordelia Garg MD, [facility] CPT-4: 41521 09/19/2016 ([id number]) 38461 EST. PATIENT, LEVEL III Diagnosis: Type 2 diabetes mellitus with hyperglycemia[ICD10: E11.65] Diagnosis: Gastro-esophageal reflux disease without esophagitis[ICD10: K21.9] Cordelia Garg MD, [facility] CPT-4: 57138 07/08/2016 ([id number]) 10027 EST. PATIENT, LEVEL III Diagnosis: Type 2 diabetes mellitus with hyperglycemia[ICD10: E11.65] Riana Garg MD, [facility] CPT-4: 40673 05/08/2016 ([id number]) [id number] EST. PATIENT, LEVEL IV Diagnosis: Essential (primary) hypertension[ICD10: I10] Diagnosis: Type 2 diabetes mellitus with hyperglycemia[ICD10: E11.65] Diagnosis: Hypothyroidism, unspecified[ICD10: E03.9] Diagnosis: Chronic kidney disease, stage 4 (severe)[ICD10: N18.4] Cordelia Garg MD, [facility] CPT-4: 35427 03/28/2016 ([id number]) 01727 EST. PATIENT, LEVEL III Diagnosis: Type 2 diabetes mellitus with hyperglycemia[ICD10: E11.65] Diagnosis: Essential (primary) hypertension[ICD10: I10] Cordelia Garg MD, [facility] CPT-4: 57442 01/22/2016 ([id number]) 00043 EST. PATIENT, LEVEL IV Diagnosis: Type 2 diabetes mellitus with hyperglycemia[ICD10: E11.65] Diagnosis: Hypothyroidism, unspecified[ICD10: E03.9] Diagnosis: Essential (primary) hypertension[ICD10: I10] Diagnosis: Chronic kidney disease, stage 4 (severe)[ICD10: N18.4] Riana Garg MD [facility] CPT-4: 02164 12/21/2015 ([id number]) 58500 EST. PATIENT, LEVEL III Diagnosis: Type 2 diabetes mellitus with hyperglycemia[ICD10: E11.65] Riana Garg MD [facility] CPT-4: 99539 11/06/2015 ([id number]) 11592 EST. PATIENT, LEVEL IV Diagnosis: Type 2 diabetes mellitus with hyperglycemia[ICD10: E11.65] Diagnosis: Essential (primary) hypertension[ICD10: I10] Cordelia Garg MD [facility] CPT-4: 40064 10/20/2015 ([id number]) 59280 EST. PATIENT, LEVEL IV Diagnosis: Type 2 diabetes mellitus with hyperglycemia[ICD10: E11.65] Diagnosis: Essential (primary) hypertension[ICD10: I10] Diagnosis: Actinic keratosis[ICD10: L57.0] Riana Garg MD [facility] CPT-4: 19462 10/09/2015 ([id number]) 43171 EST. PATIENT, LEVEL IV Diagnosis: Type 2 diabetes mellitus with hyperglycemia[ICD10: E11.65] Diagnosis: Essential (primary) hypertension[ICD10: I10] Riana Garg MD [facility] CPT-4: 69883 09/21/2015 ([id number]) 70152 EST. PATIENT, LEVEL IV Diagnosis: Type 2 diabetes mellitus with hyperglycemia[ICD10: E11.65] Diagnosis: Hypothyroidism, unspecified[ICD10: E03.9] Diagnosis: Essential (primary) hypertension[ICD10: I10] Riana Garg MD, [facility] CPT-4: 82842 08/22/2015 ([id number]) 79731 EST. PATIENT, LEVEL IV Diagnosis: ESSENTIAL HYPERTENSION[ICD9: 401.9] Diagnosis: HYPERLIPIDEMIA[ICD9: 272.4] Diagnosis: DIABETES TYPE II[ICD9: 250.00] [facility] CPT-4: 79237 04/07/2015 ([id number]) OFFICE/OUTPATIENT VISIT NEW Diagnosis: ESSENTIAL HYPERTENSION[ICD9: 401.9] Diagnosis: Diabetes mellitus out of control[ICD9: 250.02] Diagnosis: HYPOTHYROIDISM[ICD9: 244.9] Diagnosis: HYPERLIPIDEMIA[ICD9: 272.4] [facility] CPT-4: 18313 01/02/2015 Plan of Care Planned Activity Notes Codes Status Date Patient Education: Patient Medication Summary Completed 09/18/2018 [...] for effectiveness. 08/26/2018 Appointment: Cary Rivera WPtel: [facility] (30 min) [facility] 08/26/2018 Patient Education: Patient Medication Summary Completed [...] starting to become less controlled. CKD-patient sees stem crusher-has decided not to do dialysis right now Allergies-rx for flonase 07/20/2018 App[facility]ment: [phone] (15 min) Moderate 07/20/2018 Patient Education: Patient [...] less controlled. 03/05/2018 Appointment: [phone] (30 min) Complex 03/05/2018 Patient Education: Patient [...] voltaren gel 10/30/2017 Appointment: Cordelia Kumar WPtel: [facility] [place] [address] (30 min) Complex 10/30/2017 Patient Education: Patient [...] starting to become less controlled. Left thumb dubx-elwqzws-sutzwvvnx voltaren gel if symptoms persist 07/03/2017 Appointment: Cordelia Kumar WPtel: [address] [place], [place] [phone] (30 min) Complex 07/03/2017 Patient Education: Patient [...] to become less controlled. Chronic renal disease-sees stem crusher and also accounting machine servicer for management of anemia 04/03/2017 Visit Plan: [...] to become less controlled. Chronic renal disease-sees stem crusher and also accounting machine servicer for management of anemia 04/03/2017 Appointment: Cordelia Kumar WPtel: [phone] [phone] (30 min) Complex 04/03/2017 Patient Education: [...] controlled. 12/31/2016 Appointment: [phone] (30 min) Complex 12/31/2016 Patient Education: Patient [...] acute concerns. 10/07/2016 Appointment: Cordelia Kumar WPtel: [facility] [place] [address] (30 min) Complex 10/07/2016 Appointment: Cordelia Kumar WPtel: [phone] (30 min) Complex 10/07/2016 Patient Education: [...] at home. 09/19/2016 Appointment: Cordelia Kumar WPtel: [phone] [phone] (30 min) Complex 09/19/2016 Patient Education: [...] Completed 07/08/2016 Appointment: Cordelia Kumar WPtel: [phone] [phone] [place] [address] (30 min) Complex 06/20/2016 Visit Plan: Diabetes [...] stage 4- patient to make appt with [facility] Addendum: Patient noncompliant with blood sugar logs-she has been instructed to test QID but only tests daily- she did not bring her log for review today.- Patient has since moved to [facility] and they are checking her blood [...] stage 4- patient to make appt with [facility] Addendum: Patient has since moved to [facility] since this office visit. They are [...] stage 4- patient to make appt with [facility] 03/28/2016 Visit Plan: Hypertension - [...] stage 4- patient to make appt with [facility] Addendum: Patient noncompliant with blood sugar logs-she has been instructed to test QID but only tests daily- she did not bring her log for review today.- Patient has since moved to [facility] since this office visit. They are checking her blood sugars AC and HS and she is on a sliding scale to control her diabetes. 03/28/2016 Patient Education: Patient Medication Summary Completed 03/28/2016 Appointment: Cordelia Kumar WPtel: [phone] (30 min) Complex 03/26/2016 Appointment: Cordelia Kumar WPtel: [phone] [phone] (30 min) Complex 02/20/2016 Visit Plan: [...] at home. 01/22/2016 Appointment: Cordelia Kumar WPtel: [phone] (30 min) Complex 01/22/2016 Patient Education: [...] but would like to be seen in [place] to avoid excessive travel. 12/21/2015 Visit Plan: [...] Summary Completed 12/21/2015 Appointment: Riana Garg WPtel: [address] [place], [place] [id number] (15 min) Moderate 12/18/2015 Visit Plan: DM [...] me dications. 04/07/2015 Appointment: Riana Garg WPtel: [facility] [facility] 04/07/2015 Patient Education: Patient Medication [...] control. 01/02/2015 Appointment: [facility]arg [facility]el: [phone] [facility] [place] ([place] New Patient 01/02/2015 Patient Education: Patient Medication Summary Completed 01/02/2015 Patient Education: Hypertension Completed 01/02/2015 Instructions Comment Mylanta for reflux symptoms- script sent with [...] starting to become less controlled. CKD-patient sees stem crusher-has decided not to do dialysis right now [...] to become less controlled. Chronic renal disease-sees stem crusher and also accounting machine servicer for management of anemia . Hypertension - [...] to become less controlled. Chronic renal disease-sees stem crusher and also accounting machine servicer for management of anemia . Diabetes Mellitus [...] disease stage 4-patient to make appt with [facility] Addendum: Patient noncompliant with blood sugar logs-she has been instructed to test QID but only tests daily-she did not bring her log for review today.- Patient has since moved to [facility] and they are checking her blood [...] will send a referral today to the [facility] - they are located in the [facility] at [address] [place] [address] in [place] - phone number is [phone] . Hypertension - well controlled - continue [...] but would like to be seen in [place] to avoid excessive travel. . Dementia with [...] starting to become less controlled. Left thumb stpq-sgffhfo-oggvfwhks voltaren gel if symptoms persist DO NOT [...] is to call for acute concerns. . DM - medications unchanged [...] increase losartan to 100mg daily will have [facility] fax over blood sugar [...] readings are starting to become less controlled. stop the GLIMEPIRIDE make sure that you [...] disease stage 4-patient to make appt with [facility] Addendum: Patient has since moved to [facility] since this office visit. They are [...] disease stage 4-patient to make appt with [facility] . Hypertension - well controlled [...] disease stage 4-patient to make appt with [facility] Addendum: Patient noncompliant with blood sugar logs-she has been instructed to test QID but only tests daily-she did not bring her log for review today.- Patient has since moved to [facility] since this office visit. They are checking her blood sugars AC and HS and she is on a sliding scale to control her diabetes. Next time you have an appt - please bring in your blood glucose log sheet Dr. Garg will send a referral today to the [facility] - they are located in the [facility] at [address] [place] [address] in [place] - phone number is [phone] . Hypertension - well controlled - continue [...] drainage, or any other acute concerns. . Diabetes Mellitus - NOT WELL CONTROLLED-HAVING [...]
--- OUTSIDE RECORDS SUMMARY | 2019-02-16 18:56 | XMS REPORT | CCD ---
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 Name Role Phone PP Unavailable CCM Unavailable Summary Purpose Interface Exchange Insurance Providers Payer name Policy type / Coverage type Covered democrat ID Effective Begin Date Effective End Date WPS Medicare Part B [id number] 2015 Unknown [facility] Assistance [id number] 2015 Unknown Family history Mother Diagnosis Age At Onset Anemia Unknown Stroke Unknown Arthritis Unknown Hypertension Unknown Father Diagnosis Age At Onset Cancer Unknown Social History Social History Element Codes Description Effective Dates Marital status Unknown 01/02/2015 Number of children Unknown 3 01/02/2015 Employment Unknown Retired 01/02/[address]: 5741795 Quit over 10 years ago 25 years ago 01/02/[address]: 044669571 Never drinks alcohol 01/02/2015 Allergies, Adverse Reactions, [...] Date Stop Date Status Fill Instructions risperidone 0.25 mg tablet RxNorm: 174362 1 Tablet(s) PO BID 09/09/2018 01/06/2019 Active Risperdal 0.25 mg tablet RxNorm: 624268 1 Tablet(s) PO BID 09/09/2018 10/08/2018 Active Voltaren 1 % topical gel RxNorm: 309952 2 Gram(s) TOP QID 10/30/2017 No Stop Date Active Novolog 100 unit/mL subcutaneous solution RxNorm: 597391 5-10 Unit(s) SQ QID per sliding scale 07/03/2017 No Stop Date Active Novolog 100 unit/mL subcutaneous solution RxNorm: 594921 8 Unit(s) SQ at noon 09/27/2016 No Stop Date Active Novolog Flexpen 100 unit/mL subcutaneous RxNorm: 4715761 8 Unit(s) SQ at noon 09/27/2016 09/27/2016 Inactive Novolog Flexpen 100 unit/mL subcutaneous RxNorm: 0932677 8 Unit(s) SQ at noon 09/27/2016 09/26/2016 Inactive Novolog 100 unit/mL subcutaneous solution RxNorm: 729786 9 Unit(s) SQ at noon 09/27/2016 09/26/2016 Inactive Lantus 100 unit/mL subcutaneous solution RxNorm: 782710 25 Unit(s) SQ QHS 09/19/2016 No Stop Date Active Coreg 6.25 mg tablet RxNorm: 584793 2 Tablet(s) PO BID 07/08/2016 09/30/2017 Inactive Lantus Solostar 100 unit/mL (3 mL) subcutaneous insulin pen RxNorm: 222234 25 Unit(s) SQ QAM and 50 Units at bedtime 04/05/2016 05/07/2016 Inactive Synthroid 150 mcg tablet RxNorm: 074059 1 Tablet(s) PO daily 04/05/2016 07/02/2017 Inactive Lantus Solostar 100 unit/mL (3 mL) subcutaneous insulin pen RxNorm: 875998 20 Unit(s) SQ QAM and 45 Units at bedtime 01/03/2016 01/07/2016 Inactive Synthroid 125 mcg tablet RxNorm: 332998 1 Tablet(s) PO daily 12/20/2015 12/19/2015 Inactive Synthroid 125 mcg tablet RxNorm: 155421 1 Tablet(s) PO daily 12/20/2015 04/04/2016 Inactive Novolog Flexpen 100 unit/mL subcutaneous RxNorm: 7953360 15 Unit(s) SQ am and 15 units @ noon BID 11/15/2015 05/07/2016 Inactive Lantus Solostar 100 unit/mL (3 mL) subcutaneous insulin pen RxNorm: 687184 10 Unit(s) SQ QAM and 40 Units at bedtime 11/15/2015 11/19/2015 Inactive increased from 25u Coreg 6.25 mg tablet RxNorm: 832844 1.5 Tablet(s) PO BID 10/09/2015 07/07/2016 Inactive Lantus Solostar 100 unit/mL (3 mL) subcutaneous insulin pen RxNorm: 737288 35 Unit(s) SQ QHS 09/26/2015 11/14/2015 Inactive increased from 25u Novolog Flexpen 100 unit/mL subcutaneous RxNorm: 4445293 12 Unit(s) SQ am and 12 units @ noon BID 09/25/2015 11/14/2015 Inactive losartan 100 mg tablet RxNorm: 364549 1 Tablet(s) PO daily 09/21/2015 09/14/2016 Inactive Lantus Solostar 100 unit/mL (3 mL) subcutaneous insulin pen RxNorm: 113083 35 Unit(s) SQ QHS 09/21/2015 09/25/2015 Inactive Novolog Flexpen 100 unit/mL subcutaneous RxNorm: 5594409 12 Unit(s) SQ am and 12 units @ noon BID - dr to increase based on glucose readings hgba1c 10.4 09/21/2015 09/24/2015 Inactive Lantus Solostar 100 unit/mL (3 mL) subcutaneous insulin pen RxNorm: 363983 25 Unit(s) SQ QHS 08/29/2015 09/20/2015 Inactive Novolog Flexpen 100 unit/mL subcutaneous RxNorm: 9729676 8 Unit(s) SQ am and noon BID 08/29/2015 09/20/2015 Inactive Lantus Solostar 100 unit/mL (3 mL) subcutaneous insulin pen RxNorm: 100030 25 Unit(s) SQ QHS 08/25/2015 08/28/2015 Inactive losartan 50 mg tablet RxNorm: 832891 1 Tablet(s) PO daily 08/22/2015 09/20/2015 Inactive levothyroxine 125 mcg tablet RxNorm: 783045 1 Tablet(s) PO daily 01/23/2015 04/22/2015 Inactive Plavix 75 mg tablet RxNorm: 965823 1 Tablet(s) PO daily 01/02/2015 09/22/2016 Inactive Aranesp 25 mcg/mL (in polysorbate) Injection RxNorm: 432346 Milliliter(s) Inj 30mcg q 2 weeks 01/02/2015 05/08/2016 Inactive [SAVINGS FOR NON-COVERED DRUGS -- BIN:[id number], PCN: [id number], Group: [id number], ID# [id number], Questions: . THIS IS NOT INSURANCE.] aspirin 81 mg chewable tablet RxNorm: 185629 1 Tablet(s) PO daily 01/02/2015 05/07/2016 Inactive Coreg 6.25 mg tablet RxNorm: 976388 1 Tablet(s) PO BID 01/02/2015 10/08/2015 Inactive Fish Oil 300 mg-1,000 mg capsule RxNorm: 356314 2 Capsule(s) PO daily No Start Date Active sodium bicarbonate 650 mg tablet RxNorm: 387030 1 Tablet(s) PO BID No Start Date Active Crestor 40 mg tablet RxNorm: 224570 1 Tablet(s) PO daily No Start Date Active Multiple Vitamins tablet RxNorm: 1 Tablet(s) PO daily No Start Date Active Vitamin D3 2,000 unit tablet RxNorm: 620336 1 Tablet(s) PO daily No Start Date Active ferrous sulfate 325 mg (65 mg iron) tablet RxNorm: 893542 1 Tablet(s) PO daily No Start Date Active Vitamin B12 Oral RxNorm: oral No Start Date Active Aranesp 40 mcg/mL (in polysorbate) Injection RxNorm: 406312 Inject 1 Milliliter(s) SQ Every 2 weeks No Start Date Active levothyroxine 100 mcg tablet RxNorm: 915600 1 Tablet(s) PO daily No Start Date Active calcium carbonate 200 mg calcium (500 mg) chewable tablet RxNorm: 094010 1-2 Tablet(s) PO daily No Start Date Active ferrous sulfate 325 mg (65 mg iron) tablet RxNorm: 573556 1 Tablet(s) PO daily No Start Date 05/07/2016 Inactive Aranesp 25 mcg/mL (in polysorbate) Injection RxNorm: 030411 injection No Start Date 01/01/2015 Inactive lovastatin 40 mg tablet RxNorm: 099078 1 Tablet(s) PO daily No Start Date 05/07/2016 Inactive Lipitor 40 mg tablet RxNorm: 738559 1 Tablet(s) PO QHS No Start Date 01/01/2015 Inactive amlodipine 2.5 mg tablet RxNorm: 012224 1 Tablet(s) PO BID No Start Date 12/16/2014 Inactive sodium bicarbonate 325 mg tablet RxNorm: 168703 1 Tablet(s) PO BID No Start Date 05/07/2016 Inactive levothyroxine 150 mcg tablet RxNorm: 749089 1 Tablet(s) PO daily No Start Date 01/22/2015 Inactive Lantus Solostar 100 unit/mL (3 mL) subcutaneous insulin pen RxNorm: 950452 20 Unit(s) SQ QHS No Start Date 08/24/2015 Inactive Lantus 100 unit/mL subcutaneous solution RxNorm: 121265 30 Unit(s) SQ QHS No Start Date 09/18/2016 Inactive Novolog 100 unit/mL subcutaneous solution RxNorm: 872585 10 Unit(s) SQ BID in the AM and at noon No Start Date 07/02/2017 Inactive aspirin 81 mg tablet RxNorm: 900753 1 Tablet(s) PO daily No Start Date 01/01/2015 Inactive Novolog Flexpen 100 unit/mL subcutaneous RxNorm: 0609386 8 Unit(s) SQ am and noon BID No Start Date 08/28/2015 Inactive glimepiride 4 mg tablet RxNorm: 448528 1 Tablet(s) PO daily No Start Date 10/08/2015 Inactive Vitamin D3 2,000 unit capsule RxNorm: 585812 1 Capsule(s) PO daily No Start Date [...] behavioral disturbance ICD-10: F02.81 ICD-9: 294.8 08/26/2018 Type 2 diabetes mellitus with other specified complication ICD- 10: E11.69 ICD-9: 250.00 07/20/2018 Essential (primary) hypertension ICD-10: I10 ICD-9: 401.9 07/20/2018 Chronic kidney disease, stage 4 (severe) ICD-10: N18.4 ICD-9: 585.4 07/20/2018 Other allergic rhinitis ICD-10: J30.89 ICD-9: 477.8 07/20/2018 Type 2 diabetes mellitus with hyperglycemia ICD-10: E11.65 ICD-9: 250.02 10/30/2017 Hypothyroidism, unspecified ICD-10: E03.9 ICD-9: 244.9 10/30/2017 Actinic keratosis ICD-10: L57.0 ICD-9: 702.0 10/07/2016 Gastro-esophageal reflux disease without esophagitis ICD-10: K21.9 ICD-9: 530.81 07/08/2016 DIABETES TYPE II ICD-9: 250.00 04/07/2015 ESSENTIAL HYPERTENSION ICD-9: 401.9 04/07/2015 HYPERLIPIDEMIA ICD-9: 272.4 04/07/2015 HYPOTHYROIDISM ICD-9: 244.9 01/02/2015 Diabetes mellitus [...] 30.6 pg 09/16/2018 Cbc With Differential Ord2 Atkinson% 10.1 % 09/16/2018 Cbc With Differential Ord2 Eos% 2.4 % 09/16/2018 Cbc With Differential Ord2 MCHC 31.7 pg 09/16/2018 Cbc With Differential Ord2 Baso% 0.7 % 09/16/2018 Cbc With Differential Ord2 PLT 100 K/ul 09/16/2018 Cbc With Differential Ord2 Neut ABS# 2.53 K/ul 09/16/2018 Cbc With Differential Ord2 RDW 15.8 % 09/16/2018 Cbc With Differential Ord2 Lymph ABS# 2.10 K/ul 09/16/2018 Cbc With Differential Ord2 Atkinson ABS# 0.5 K/ul 09/16/2018 Cbc With Differential [...] U-VOL VOLUME SUFFICIENT (10mL) 09/10/2018 Urinalysis Ord28 U-Com Urine saved if culture needed (specimen acceptable for 48 hours from collection if refrigerated) 09/10/2018 Urinalysis Ord28 U-Yeast NEGATIVE 09/10/2018 Urine Culture Ucult Preliminary NO Growth Day 1 08/27/2018 Urine Culture Ucult Complete NO Growth Day 2 08/27/2018 Tsh Ord6 TSH (3rd IS) 1.93 uIU/mL 08/24/2018 Free T4 Cld621 FREE T4 1.05 ng/dL 08/24/2018 Urinalysis Ord28 [...] U-VOL VOLUME SUFFICIENT (10mL) 08/24/2018 Urinalysis Ord28 U-Com No culture indicated, Urine saved if culture needed (specimen acceptable for 48 hours from collection if refrigerated) 08/24/2018 Urinalysis Ord28 U-Yeast NEGATIVE 08/24/2018 Cbc With Differential Ord2 WBC 7.06 K/ul 08/17/2018 Cbc With Differential Ord2 RBC 3.40 M/ul 08/17/2018 Cbc With Differential Ord2 HGB 10.1 g/dl 08/17/2018 Cbc With Differential Ord2 Neut% 56.8 % 08/17/2018 Cbc With Differential Ord2 HCT 32.0 % 08/17/2018 Cbc With Differential Ord2 MCV 94.1 fl 08/17/2018 Cbc With Differential Ord2 Lymph% 30.3 % 08/17/2018 Cbc With Differential Ord2 Atkinson% 9.8 % 08/17/2018 Cbc With Differential Ord2 MCH 29.7 pg 08/17/2018 Cbc With Differential Ord2 Eos% 2.5 % 08/17/2018 Cbc With Differential Ord2 MCHC 31.6 pg 08/17/2018 Cbc With Differential Ord2 PLT 128 K/ul 08/17/2018 Cbc With Differential Ord2 Baso% 0.6 % 08/17/2018 Cbc With Differential Ord2 RDW 16.2 % 08/17/2018 Cbc With Differential Ord2 Neut ABS# 4.01 K/ul 08/17/2018 Cbc With Differential Ord2 Lymph ABS# 2.14 K/ul 08/17/2018 Cbc With Differential Ord2 Atkinson ABS# 0.7 K/ul 08/17/2018 Cbc With Differential Ord2 Eos ABS# 0.2 K/ul 08/17/2018 Cbc With Differential Ord2 Baso ABS# 0.0 K/ul 08/17/2018 Comp Metabolic Tva069 NA 143 mEq/L 04/14/2018 Comp Metabolic Pqa018 K 4.6 mEq/L 04/14/2018 Comp Metabolic Xsy593 CL 108 mEq/L 04/14/2018 Comp Metabolic Cuv811 CO2 23.0 mEq/L 04/14/2018 Comp Metabolic Jtb667 ANION GAP 17 04/14/2018 Comp Metabolic Gda364 GLUCOSE 54 mg/dL 04/14/2018 Comp Metabolic Qri506 Creat 2.7 mg/dL 04/14/2018 Comp Metabolic Uvq251 eGFR 18 ml/min/1.73m2 04/14/2018 Comp Metabolic Ugp019 BUN 45 mg/dL 04/14/2018 Comp Metabolic Khy903 B/C Ratio 16.9 Ratio 04/14/2018 Comp Metabolic Tgh219 CALCIUM 8.3 mg/dL 04/14/2018 Comp Metabolic Hfy908 ALK PHOS 113 U/L 04/14/2018 Comp Metabolic Lcg572 AST(SGOT) 31 U/L 04/14/2018 Comp Metabolic Wqp408 ALT(SGPT) 33 U/L 04/14/2018 Comp Metabolic Ytg133 BILI T 0.5 mg/dL 04/14/2018 Comp Metabolic Juh105 ALBUMIN 3.6 g/dL 04/14/2018 Comp Metabolic Wfc331 TPRO 6.5 g/dL 04/14/2018 Comp Metabolic Ufd380 GLOB 2.9 g/dL 04/14/2018 Comp Metabolic Dps064 A/G Ratio 1.2 Ratio 04/14/2018 Comp Metabolic Etj518 Osmo 294 mOsmo 04/14/2018 Lipid Ord30 CHOL 71 mg/dL 04/14/2018 Lipid Ord30 HDL 38.0 mg/dl 04/14/2018 Lipid Ord30 TRIG 55 mg/dL 04/14/2018 Lipid Ord30 LDL 22 mg/dL 04/14/2018 Lipid Ord30 C/HDL 1.9 Ratio 04/14/2018 Urine Culture Ucult Complete NO Growth Day 2 01/23/2018 Urine Culture Ucult Preliminary NO Growth Day 1 01/23/2018 Urinalysis Ord28 U-Color Yellow 01/21/2018 Urinalysis [...] Ord28 U-Com Culture to follow 01/21/2018 %Hba1C Aid756 % HbA1c 12803- 6 7.4 % 11/03/2017 %Hba1C Ufq794 Gluc Ave 166 mg/dL 11/03/2017 Urine Culture Ucult Complete NO Growth Day 2 07/31/2017 Urine Culture Ucult Preliminary NO Growth Day 1 07/31/2017 Urinalysis Ord28 U-Color Yellow 07/29/2017 Urinalysis [...] follow 07/29/2017 Urinalysis Ord28 U-Yeast NEGATIVE 07/29/2017 Comp Metabolic Kqg793 NA 141 mEq/L 09/20/2016 Comp Metabolic God534 K 5.9 Result Verified By Repeat Analysis mEq/L 09/20/2016 Comp Metabolic Aew289 CL 110 mEq/L 09/20/2016 Comp Metabolic Acc199 CO2 23.0 mEq/L 09/20/2016 Comp Metabolic Ftd234 ANION GAP 14 09/20/2016 Comp Metabolic Qcb815 GLUCOSE 101 mg/dL 09/20/2016 Comp Metabolic Tnq014 Creat 2.2 mg/dL 09/20/2016 Comp Metabolic Rai131 eGFR 23 ml/min/1.73m2 09/20/2016 Comp Metabolic Woz021 BUN 49 mg/dL 09/20/2016 Comp Metabolic Dwi577 B/C Ratio 22.0 Ratio 09/20/2016 Comp Metabolic Zzx789 CALCIUM 8.7 mg/dL 09/20/2016 Comp Metabolic Ugw801 ALK PHOS 142 U/L 09/20/2016 Comp Metabolic Phy327 AST(SGOT) 26 U/L 09/20/2016 Comp Metabolic Gzi055 ALT(SGPT) 27 U/L 09/20/2016 Comp Metabolic Xzw659 BILI T 0.3 mg/dL 09/20/2016 Comp Metabolic Law121 ALBUMIN 4.0 g/dL 09/20/2016 Comp Metabolic Ewf675 TPRO 7.6 g/dL 09/20/2016 Comp Metabolic Gmh392 GLOB 3.6 g/dL 09/20/2016 Comp Metabolic Vvx385 A/G Ratio 1.1 Ratio 09/20/2016 Comp Metabolic Plw852 Osmo 294 mOsmo 09/20/2016 %Hba1C Mal213 % HbA1c 28996- 6 6.7 % 09/20/2016 %Hba1C Rpg493 Gluc Ave 146 mg/dL 09/20/2016 Cbc With [...] 26.3 pg 09/20/2016 Cbc With Differential Ord2 Atkinson% 11.3 % 09/20/2016 Cbc With Differential Ord2 Eos% 3.8 % 09/20/2016 Cbc With Differential Ord2 MCHC 30.9 pg 09/20/2016 Cbc With Differential Ord2 PLT 196 K/ul 09/20/2016 Cbc With Differential Ord2 Baso% 1.9 % 09/20/2016 Cbc With Differential Ord2 RDW 16.0 % 09/20/2016 Cbc With Differential Ord2 Neut ABS# 2.91 K/ul 09/20/2016 Cbc With Differential Ord2 Lymph ABS# 1.08 K/ul 09/20/2016 Cbc With Differential Ord2 Atkinson ABS# 0.5 K/ul 09/20/2016 Cbc With Differential Ord2 Eos ABS# 0.2 K/ul 09/20/2016 Cbc With Differential Ord2 Baso ABS# 0.1 K/ul 09/20/2016 Urinalysis Ord28 U-Color Yellow 05/31/2016 Urinalysis [...] U-VOL VOLUME SUFFICIENT (10mL) 05/31/2016 Urinalysis Ord28 U-Com Urine saved if culture needed (specimen acceptable for 48 hours from collection if refrigerated) 05/31/2016 Urinalysis Ord28 U-Yeast NEGATIVE 05/31/2016 %Hba1C Sis984 % HbA1c 73005- 6 13.5 % 03/28/2016 %Hba1C Rbr231 Gluc Ave 341 mg/dL 03/28/2016 Free T4 Hjr160 FREE T4 0.72 ng/dL 03/28/2016 Comp Metabolic Lbq963 NA 133 mEq/L 03/28/2016 Comp Metabolic Qki409 K 5.4 mEq/L 03/28/2016 Comp Metabolic Afg372 CL 102 mEq/L 03/28/2016 Comp Metabolic Ysm361 CO2 22.0 mEq/L 03/28/2016 Comp Metabolic Eny426 ANION GAP 14 03/28/2016 Comp Metabolic Kbf840 GLUCOSE 432 mg/dL 03/28/2016 Comp Metabolic Iqx070 Creat 1.9 mg/dL 03/28/2016 Comp Metabolic Ulf564 eGFR 27 ml/min/1.73m2 03/28/2016 Comp Metabolic Mta969 BUN 38 mg/dL 03/28/2016 Comp Metabolic Tsq607 B/C Ratio 19.6 Ratio 03/28/2016 Comp Metabolic Yll648 CALCIUM 8.9 mg/dL 03/28/2016 Comp Metabolic Fzl257 ALK PHOS 84 U/L 03/28/2016 Comp Metabolic Kio041 AST(SGOT) 9 U/L 03/28/2016 Comp Metabolic Eta319 ALT(SGPT) 6 U/L 03/28/2016 Comp Metabolic Afe671 BILI T 0.4 mg/dL 03/28/2016 Comp Metabolic Uwg205 ALBUMIN 3.6 g/dL 03/28/2016 Comp Metabolic Anm645 TPRO 6.8 g/dL 03/28/2016 Comp Metabolic Dng144 GLOB 3.2 g/dL 03/28/2016 Comp Metabolic Cti418 A/G Ratio 1.1 Ratio 03/28/2016 Comp Metabolic Psd670 Osmo 294 mOsmo 03/28/2016 Tsh Ord6 hTSH II 16.02 uIU/mL 03/28/2016 Random Urine Protein/Creatinine Ratio Rmn7391 U Prot 63.3 mg/dl 12/22/2015 Random Urine Protein/Creatinine Ratio Cmy9479 U CREAT 83.0 mg/dL 12/22/2015 Random Urine Protein/Creatinine Ratio Xsm3570 R MTP/Creat Ratio 0.76 12/22/2015 Microalbumin Tfq758 MicroAlb 25.4 mg/dL 12/22/2015 Comp Metabolic Oat491 NA 132 mEq/L 12/22/2015 Comp Metabolic Mye697 K 4.6 mEq/L 12/22/2015 Comp Metabolic Muv859 CL 97 mEq/L 12/22/2015 Comp Metabolic Bid096 CO2 24.0 mEq/L 12/22/2015 Comp Metabolic Ums882 ANION GAP 16 12/22/2015 Comp Metabolic Ved977 GLUCOSE 354 mg/dL 12/22/2015 Comp Metabolic Mix464 Creat 1.8 mg/dL 12/22/2015 Comp Metabolic Nzz436 eGFR 29 ml/min/1.73m2 12/22/2015 Comp Metabolic Ypk842 BUN 47 mg/dL 12/22/2015 Comp Metabolic Qbr523 B/C Ratio 26.3 Ratio 12/22/2015 Comp Metabolic Izi270 CALCIUM 9.5 mg/dL 12/22/2015 Comp Metabolic Eel303 ALK PHOS 100 U/L 12/22/2015 Comp Metabolic Uwm047 AST(SGOT) 15 U/L 12/22/2015 Comp Metabolic Oma274 ALT(SGPT) 11 U/L 12/22/2015 Comp Metabolic Omh509 BILI T 0.4 mg/dL 12/22/2015 Comp Metabolic Oku290 ALBUMIN 3.7 g/dL 12/22/2015 Comp Metabolic Pkt086 TPRO 7.1 g/dL 12/22/2015 Comp Metabolic Bhv228 GLOB 3.4 g/dL 12/22/2015 Comp Metabolic Yty617 A/G Ratio 1.1 Ratio 12/22/2015 Comp Metabolic Kra847 Osmo 291 mOsmo 12/22/2015 %Hba1C Gnh476 % HbA1c 86869- 6 11.9 % 12/21/2015 %Hba1C Uyj508 Gluc Ave 295 mg/dL 12/21/2015 Review of [...] Procedure Codes Date DESTRUCT PREMALG LESION CPT-4: 29313 10/07/2016 Vital Signs Date Vital 08/26/2018 Blood Pressure 1: 146/52 Code: 8480-6 BMI: 28.0 Code: 67822-4 Heart Rate 1: 68 bpm Height: 5'3" SpO2: 98% Weight: 158 lbs 07/20/2018 Blood Pressure 1: 144/70 Code: 8480-6 BMI: 28.3 Code: 11643-6 Heart Rate 1: 82 bpm Height: 5'3" SpO2: 100% Weight: 160 lbs 03/05/2018 Blood Pressure 1: 144/66 Code: 8480-6 BMI: 28.7 Code: 63856-6 Heart Rate 1: 83 bpm Height: 5'3" SpO2: 99% Weight: 162 lbs 10/30/2017 Blood Pressure 1: 122/58 Code: 8480-6 BMI: 30.1 Code: 17257-1 Heart Rate 1: 78 bpm Height: 5'3" SpO2: 98% Weight: 170 lbs 07/03/2017 Blood Pressure 1: 148/78 Code: 8480-6 BMI: 29.8 Code: 88541-0 Heart Rate 1: 80 bpm Height: 5'3" SpO2: 99% Weight: 168 lbs 04/03/2017 Blood Pressure 1: 144/64 Code: 8480-6 BMI: 29.1 Code: 11278-8 Heart Rate 1: 78 bpm Height: 5'3" SpO2: 98% Weight: 164 lbs 12/31/2016 Blood Pressure 1: 138/70 Code: 8480-6 BMI: 30.3 Code: 30480-6 Heart Rate 1: 84 bpm Height: 5'3" SpO2: 90% Weight: 171 lbs 10/07/2016 Blood Pressure 1: 146/78 Code: 8480-6 BMI: 29.4 Code: 96013-8 Heart Rate 1: 73 bpm Height: 5'3" SpO2: 99% Weight: 166 lbs 09/19/2016 Blood Pressure 1: 168/76 Code: 8480-6 BMI: 29.2 Code: 73546-8 Heart Rate 1: 88 bpm Height: 5'3" SpO2: 98% Weight: 165 lbs 07/08/2016 Blood Pressure 1: 120/80 Code: 8480-6 BMI: 28.3 Code: 39856-7 Heart Rate 1: 80 bpm Height: 5'3" SpO2: 99% Weight: 160 lbs 05/08/2016 Blood Pressure 1: 138/70 Code: 8480-6 BMI: 26.9 Code: 97267-6 Heart Rate 1: 93 bpm Height: 5'3" SpO2: 98% Weight: 152 lbs 03/28/2016 Blood Pressure 1: 144/74 Code: 8480-6 BMI: 27.6 Code: 74665-7 Heart Rate 1: 85 bpm Height: 5'3" SpO2: 99% Weight: 156 lbs 01/22/2016 Blood Pressure 1: 140/82 Code: 8480-6 BMI: 28.9 Code: 38844-0 Heart Rate 1: 104 bpm Height: 5'3" SpO2: 94% Weight: 163 lbs 12/21/2015 Blood Pressure 1: 140/90 Code: 8480-6 BMI: 28.7 Code: 88795-8 Heart Rate 1: 99 bpm Height: 5'3" SpO2: 96% Weight: 162 lbs 11/06/2015 Blood Pressure 1: 110/60 Code: 8480-6 BMI: 29.8 Code: 25864-1 Heart Rate 1: 93 bpm Height: 5'3" SpO2: 98% Weight: 168 lbs 10/20/2015 Blood Pressure 1: 152/62 Code: 8480-6 BMI: 29.8 Code: 38416-0 Heart Rate 1: 86 bpm Height: 5'3" SpO2: 96% Weight: 168 lbs 10/09/2015 Blood Pressure 1: 152/60 Code: 8480-6 BMI: 30.2 Code: 32447-3 Heart Rate 1: 83 bpm Height: 5'3" SpO2: 98% Weight: 170 lbs 8 oz 09/21/2015 Blood Pressure 1: 160/74 Code: 8480-6 Blood Pressure 1: 168/72 Code: 8480-6 BMI: 29.8 Code: 24454-4 Heart Rate 1: 82 bpm Height: 5'3" SpO2: 99% Weight: 168 lbs 08/22/2015 Blood Pressure 1: 178/78 Code: 8480-6 Blood Pressure 1: 170/82 Code: 8480-6 BMI: 29.2 Code: 48927-9 Heart Rate 1: 85 bpm Height: 5'3" SpO2: 99% Weight: 165 lbs 04/07/2015 Blood Pressure 1: 140/68 Code: 8480-6 BMI: 29.9 Code: 13825-9 Heart Rate 1: 81 bpm Height: 5'3" SpO2: 99% Weight: 169 lbs 01/02/2015 Blood Pressure 1: 162/72 Code: 8480-6 BMI: 30.3 Code: 88364-4 Heart Rate 1: 88 bpm Height: 5'3" [...] glucose at home, see scanned readings 10/07/2016 [facility] diabetes mellitus Pertinent Findings Denies dizziness 10/07/2016 [...] Performer Location Codes Date EST. PATIENT, LEVEL III Diagnosis: Dementia in other diseases classified elsewhere with behavioral disturbance[ICD10: F02.81] Cary Garg MD, [facility] [place] CPT-4: 55618 08/26/2018 [id number]) [id number] EST. PATIENT, LEVEL IV Diagnosis: Type 2 diabetes mellitus with other specified complication[ICD10: E11.69] Diagnosis: Essential (primary) hypertension[ICD10: I10] Diagnosis: Other allergic rhinitis[ICD10: J30.89] Diagnosis: Chronic kidney disease, stage 4 (severe)[ICD10: N18.4] Cordelia Garg MD, [facility] [place] CPT-4: 00179 07/20/2018 [id number]) [id number] EST. PATIENT, LEVEL III Diagnosis: Essential (primary) hypertension[ICD10: I10] Diagnosis: Type 2 diabetes mellitus with other specified complication[ICD10: E11.69] Cordelia Garg MD, [facility] [place] CPT-4: 02509 03/05/2018 [id number]) [id number] EST. PATIENT, LEVEL IV Diagnosis: Type 2 diabetes mellitus with hyperglycemia[ICD10: E11.65] Diagnosis: Hypothyroidism, unspecified[ICD10: E03.9] Diagnosis: Essential (primary) hypertension[ICD10: I10] Diagnosis: Chronic kidney disease, stage 4 (severe)[ICD10: N18.4] Cordelia Garg MD, [facility] [place] CPT-4: 47189 10/30/2017 [id number]) [id number] EST. PATIENT, LEVEL IV Diagnosis: Hypothyroidism, unspecified[ICD10: E03.9] Diagnosis: Type 2 diabetes mellitus with hyperglycemia[ICD10: E11.65] Diagnosis: Essential (primary) hypertension[ICD10: I10] Diagnosis: Chronic kidney disease, stage 4 (severe)[ICD10: N18.4] Cordelia Garg MD, [facility] [place] CPT-4: 02062 07/03/2017 ([id number]) 84711 EST. PATIENT, LEVEL III Diagnosis: Type 2 diabetes mellitus with hyperglycemia[ICD10: E11.65] Diagnosis: Essential (primary) hypertension[ICD10: I10] Diagnosis: Chronic kidney disease, stage 4 (severe)[ICD10: N18.4] Cordelia Garg MD, [facility] [place] CPT-4: 80475 04/03/2017 ([id number]) 42750 EST. PATIENT, LEVEL III Diagnosis: Type 2 diabetes mellitus with hyperglycemia[ICD10: E11.65] Cordelia Garg MD, [facility] [place] CPT-4: 59821 12/31/2016 ([id number]) 19306 EST. PATIENT, LEVEL II Diagnosis: Type 2 diabetes mellitus with hyperglycemia[ICD10: E11.65] Diagnosis: Essential (primary) hypertension[ICD10: I10] Diagnosis: Actinic keratosis[ICD10: L57.0] Cordelia Garg MD, [facility] [place] CPT-4: 05573 10/07/2016 [id number] EST. PATIENT, LEVEL IV Diagnosis: Type 2 diabetes mellitus with hyperglycemia[ICD10: E11.65] Diagnosis: Essential (primary) hypertension[ICD10: I10] Cordelia Garg MD, [facility] [place] CPT-4: 22420 09/19/2016 [id number]) [id number] EST. PATIENT, LEVEL III Diagnosis: Type 2 diabetes mellitus with hyperglycemia[ICD10: E11.65] Diagnosis: Gastro-esophageal reflux disease without esophagitis[ICD10: K21.9] Cordelia Garg MD, [facility] [place] CPT-4: 88928 07/08/2016 ([id number]) [id number] EST. PATIENT, LEVEL III Diagnosis: Type 2 diabetes mellitus with hyperglycemia[ICD10: E11.65] Riana Garg MD [facility] [place] CPT-4: 07421 05/08/2016 ([id number]) 60970 EST. PATIENT, LEVEL IV Diagnosis: Essential (primary) hypertension[ICD10: I10] Diagnosis: Type 2 diabetes mellitus with hyperglycemia[ICD10: E11.65] Diagnosis: Hypothyroidism, unspecified[ICD10: E03.9] Diagnosis: Chronic kidney disease, stage 4 (severe)[ICD10: N18.4] Cordelia Garg MD [facility] [place] CPT-4: 59126 03/28/2016 ([id number]) 52530 EST. PATIENT, LEVEL III Diagnosis: Type 2 diabetes mellitus with hyperglycemia[ICD10: E11.65] Diagnosis: Essential (primary) hypertension[ICD10: I10] Cordelia Garg MD [facility] [place] CPT-4: 60708 01/22/2016 ([id number]) 11196 EST. PATIENT, LEVEL IV Diagnosis: Type 2 diabetes mellitus with hyperglycemia[ICD10: E11.65] Diagnosis: Hypothyroidism, unspecified[ICD10: E03.9] Diagnosis: Essential (primary) hypertension[ICD10: I10] Diagnosis: Chronic kidney disease, stage 4 (severe)[ICD10: N18.4] Riana Garg MD [facility] [place] CPT-4: 26223 12/21/2015 ([id number]) [id number] EST. PATIENT, LEVEL III Diagnosis: Type 2 diabetes mellitus with hyperglycemia[ICD10: E11.65] Riana Garg MD [facility] [place] CPT-4: 33094 11/06/2015 ([id number]) 19614 EST. PATIENT, LEVEL IV Diagnosis: Type 2 diabetes mellitus with hyperglycemia[ICD10: E11.65] Diagnosis: Essential (primary) hypertension[ICD10: I10] Cordelia Garg MD [facility] [place] CPT-4: 24207 10/20/2015 ([id number]) [id number] EST. PATIENT, LEVEL IV Diagnosis: Type 2 diabetes mellitus with hyperglycemia[ICD10: E11.65] Diagnosis: Essential (primary) hypertension[ICD10: I10] Diagnosis: Actinic keratosis[ICD10: L57.0] Riana Garg MD [facility] CPT-4: 66543 10/09/2015 [id number] EST. PATIENT, LEVEL IV Diagnosis: Type 2 diabetes mellitus with hyperglycemia[ICD10: E11.65] Diagnosis: Essential (primary) hypertension[ICD10: I10] Riana Garg MD [facility] CPT-4: 08827 09/21/2015 ([id number]) [id number] EST. PATIENT, LEVEL IV Diagnosis: Type 2 diabetes mellitus with hyperglycemia[ICD10: E11.65] Diagnosis: Hypothyroidism, unspecified[ICD10: E03.9] Diagnosis: Essential (primary) hypertension[ICD10: I10] Riana Garg MD [facility] CPT-4: 38371 08/22/2015 ([id number] EST. PATIENT, LEVEL IV Diagnosis: ESSENTIAL HYPERTENSION[ICD9: 401.9] Diagnosis: HYPERLIPIDEMIA[ICD9: 272.4] Diagnosis: DIABETES TYPE II[ICD9: 250.00] Riana Garg MD [facility] CPT-4: 88378 04/07/2015 ([id number]) OFFICE/OUTPATIENT VISIT NEW Diagnosis: ESSENTIAL HYPERTENSION[ICD9: 401.9] Diagnosis: Diabetes mellitus out of control[ICD9: 250.02] Diagnosis: HYPOTHYROIDISM[ICD9: 244.9] Diagnosis: HYPERLIPIDEMIA[ICD9: 272.4] Riana Garg MD, [facility] CPT-4: 82628 01/02/2015 Plan of Care Planned Activity Notes [...] for effectiveness. 08/26/2018 Appointment: Cary Rivera WPtel: [address] [place], [place] [id number] (30 min) [facility] 08/26/2018 Patient Education: Patient Medication Summary Completed [...] starting to become less controlled. CKD-patient sees masonry instructor-has decided not to do dialysis right now Allergies-rx for flonase 07/20/2018 Appointment: Cord[phone] [id number] (15 min) Moderate 07/20/2018 Patient Education: Patient [...] controlled. 03/05/2018 Appointment: Cordelia Kumar WPtel: [id number] [place] (30 min) Complex 03/05/2018 Patient Education: [...] voltaren gel 10/30/2017 Appointment: Cordelia Kumar WPtel: [address] [place], [place] [id number] (30 min) [facility] 10/30/2017 Patient Education: Patient Medication Summary Completed [...] starting to become less controlled. Left thumb hpyn-cxbuyxo-zfpswqwel voltaren gel if symptoms persist 07/03/2017 Appointment: Cordelia Kumar WPtel: [id number] (30 min) Complex 07/03/2017 Patient Education: Patient [...] to become less controlled. Chronic renal disease-sees masonry instructor and also climbing guide for management of anemia 04/03/2017 Visit Plan: [...] to become less controlled. Chronic renal disease-sees masonry instructor and also climbing guide for management of anemia 04/03/2017 Appointment: Cordelia Kumar WPtel: [phone] [id number] (30 min) Complex 04/03/2017 Patient Education: Patient [...] less controlled. 12/31/2016 Appointment: Cordelia Kumar WPtel: [id number] (30 min) Complex 12/31/2016 Patient Education: Patient [...] concerns. 10/07/2016 Appointment: Cordelia Kumar WPtel: [phone] [id number] (30 min) Complex 10/07/2016 Appointment: Cordelia Kumar WPtel: [phone] [id number] (30 min) Complex 10/07/2016 Patient Education: Patient [...] at home. 09/19/2016 Appointment: Cordelia Kumar WPtel: [id number] (30 min) Complex 09/19/2016 Patient Education: Patient [...] Patient Medication Summary Completed 07/08/2016 Appointment: Cordelia uKmar WPtel: [id number] (30 min) Complex 06/20/2016 Visit Plan: Diabetes [...] Addendum: Patient has since moved to [facility] since this office visit. They are checking [...] stage 4- patient to make appt with [facility] Addendum: Patient noncompliant with blood sugar logs-she has been instructed to test QID but only tests daily- she did not bring her log for review today.- Patient has since moved to [facility] and they are checking her blood sugars [...] stage 4- patient to make appt with [facility] 03/28/2016 Visit Plan: Hypertension - [...] today.- Patient has since moved to [facility] since this office visit. They are checking her blood sugars AC and HS and she is on a sliding scale to control her diabetes. 03/28/2016 Patient Education: Patient Medication Summary Completed 03/28/2016 Appointment: Cordelia Kumar WPtel: [id number] (30 min) Complex 03/26/2016 Appointment: Cordelia Kumar WPtel: [id number] (30 min) Complex 02/20/2016 Visit Plan: Diabetes [...] home. 01/22/2016 Appointment: Cordelia Kumar WPtel: [id number] [place] (30 min) Complex 01/22/2016 Patient Education: Patient [...] pt has been seeing a group in [facility] - but would like to be seen in [place] to avoid excessive travel. 12/21/2015 Patient Education: Patient Medication Summary Completed 12/21/2015 [facility]ment: [id number] (15 min) Moderate 12/18/2015 Visit Plan: [...] dications. 04/07/2015 Appointment: [facility]arg [id number] Follow up 04/07/2015 Patient Education: Patient [...] control. 01/02/2015 Appointment: R[facility] Garg [facility]el[id number] [place] ([place] New Patient 01/02/2015 Patient [...] starting to become less controlled. Left thumb mxjq-ukoudwh-zhotmjiay voltaren gel if symptoms persist DO NOT [...] starting to become less controlled. CKD-patient sees masonry instructor-has decided not to do dialysis right now [...] to become less controlled. Chronic renal disease-sees masonry instructor and also climbing guide for management of anemia . Hypertension - [...] to become less controlled. Chronic renal disease-sees masonry instructor and also climbing guide for management of anemia . Diabetes Mellitus [...] disease stage 4-patient to make appt with [facility] Addendum: Patient has since moved to [facility] since this office visit. They are checking [...] disease stage 4-patient to make appt with [facility] Addendum: Patient noncompliant with blood sugar logs-she has been instructed to test QID but only tests daily-she did not bring her log for review today.- Patient has since moved to [facility] and they are checking her blood sugars [...] disease stage 4-patient to make appt with [facility] . Hypertension - well controlled [...] disease stage 4-patient to make appt with [facility] Addendum: Patient noncompliant with blood sugar logs-she has been instructed to test QID but only tests daily-she did not bring her log for review today.- Patient has since moved to [facility] since this office visit. They are checking [...] will send a referral today to the [facility] - they are located in the [facility] at [address] [place] [address] in [place] - phone number is [phone] . Hypertension - well controlled - continue [...] Group - they are located in the [facility] at [address] [facility] in [place] - phone number is [phone] . Hypertension - well controlled - continue [...] pt has been seeing a group in [facility] - but would like to be seen in [place] to avoid excessive travel. . Dementia with [...] increase losartan to 100mg daily will have [facility] fax over blood sugar log. [...]
--- OUTSIDE RECORDS SUMMARY | 2019-02-16 19:00 | XMS REPORT | CCD ---
Author Author [facility] Organization [facility] Address [address] [place] [address] Phone Care Team Providers Care Manager Print Name Role Phone PP Unavailable CCM Unavailable Summary Purpose Interface Exchange Insurance Providers Payer name Policy type / Coverage type Covered constitution party ID Effective Begin Date Effective End Date WPS Medicare Part B [id number] 2015 Unknown [facility] Assistance [id number] 2015 Unknown Family history Mother Diagnosis Age At Onset Anemia Unknown Stroke Unknown Arthritis Unknown Hypertension Unknown Father Diagnosis Age At Onset Cancer Unknown Social History Social History Element Codes Description Effective Dates Marital status Unknown 01/02/2015 Number of children Unknown 3 01/02/2015 Employment Unknown Retired 01/02/[address]: 0648983 Quit over 10 years ago 25 years ago 01/02/[address]: 768642556 Never drinks alcohol 01/02/2015 Allergies, Adverse Reactions, Alerts Substance Reaction Codes Entered Date Inactivated Date Status * NO KNOWN FOOD ALLERGIES Unknown 01/02/2015 No Inactive Date Active SULFA(SULFONAMIDE ANTIBIOTICS) Unknown 01/02/2015 No Inactive Date Active Past Medical History Illness Codes Condition Status Onset Date Resolved Date Dysuria ICD-9: 788.1 ICD-10: R30.0 Active 12/26/2015 [...] Problems Condition Codes Effective Dates Condition Status Dysuria ICD-9: 788.1 ICD-10: R30.0 12/26/2015 Active [...] Fill Instructions risperidone 0.25 mg tablet RxNorm: 333864 1 Tablet(s) PO BID 09/09/2018 01/06/2019 Active Risperdal 0.25 mg tablet RxNorm: 991782 1 Tablet(s) PO BID 09/09/2018 10/08/2018 Active Voltaren 1 % topical gel RxNorm: 789168 2 Gram(s) TOP QID 10/30/2017 No Stop Date Active Novolog 100 unit/mL subcutaneous solution RxNorm: 236719 5-10 Unit(s) SQ QID per sliding scale 07/03/2017 No Stop Date Active Novolog 100 unit/mL subcutaneous solution RxNorm: 646263 8 Unit(s) SQ at noon 09/27/2016 No Stop Date Active Novolog Flexpen 100 unit/mL subcutaneous RxNorm: 1997739 8 Unit(s) SQ at noon 09/27/2016 09/27/2016 Inactive Novolog Flexpen 100 unit/mL subcutaneous RxNorm: 3859777 8 Unit(s) SQ at noon 09/27/2016 09/26/2016 Inactive Novolog 100 unit/mL subcutaneous solution RxNorm: 523351 9 Unit(s) SQ at noon 09/27/2016 09/26/2016 Inactive Lantus 100 unit/mL subcutaneous solution RxNorm: 243489 25 Unit(s) SQ QHS 09/19/2016 No Stop Date Active Coreg 6.25 mg tablet RxNorm: 750231 2 Tablet(s) PO BID 07/08/2016 09/30/2017 Inactive Lantus Solostar 100 unit/mL (3 mL) subcutaneous insulin pen RxNorm: 567248 25 Unit(s) SQ QAM and 50 Units at bedtime 04/05/2016 05/07/2016 Inactive Synthroid 150 mcg tablet RxNorm: 163650 1 Tablet(s) PO daily 04/05/2016 07/02/2017 Inactive Lantus Solostar 100 unit/mL (3 mL) subcutaneous insulin pen RxNorm: 084846 20 Unit(s) SQ QAM and 45 Units at bedtime 01/03/2016 01/07/2016 Inactive Synthroid 125 mcg tablet RxNorm: 175887 1 Tablet(s) PO daily 12/20/2015 12/19/2015 Inactive Synthroid 125 mcg tablet RxNorm: 596559 1 Tablet(s) PO daily 12/20/2015 04/04/2016 Inactive Novolog Flexpen 100 unit/mL subcutaneous RxNorm: 7739984 15 Unit(s) SQ am and 15 units @ noon BID 11/15/2015 05/07/2016 Inactive Lantus Solostar 100 unit/mL (3 mL) subcutaneous insulin pen RxNorm: 128453 10 Unit(s) SQ QAM and 40 Units at bedtime 11/15/2015 11/19/2015 Inactive increased from 25u Coreg 6.25 mg tablet RxNorm: 461906 1.5 Tablet(s) PO BID 10/09/2015 07/07/2016 Inactive Lantus Solostar 100 unit/mL (3 mL) subcutaneous insulin pen RxNorm: 538405 35 Unit(s) SQ QHS 09/26/2015 11/14/2015 Inactive increased from 25u Novolog Flexpen 100 unit/mL subcutaneous RxNorm: 7189974 12 Unit(s) SQ am and 12 units @ noon BID 09/25/2015 11/14/2015 Inactive losartan 100 mg tablet RxNorm: 203690 1 Tablet(s) PO daily 09/21/2015 09/14/2016 Inactive Lantus Solostar 100 unit/mL (3 mL) subcutaneous insulin pen RxNorm: 195622 35 Unit(s) SQ QHS 09/21/2015 09/25/2015 Inactive Novolog Flexpen 100 unit/mL subcutaneous RxNorm: 5074127 12 Unit(s) SQ am and 12 units @ noon BID - dr to increase based on glucose readings [id number] 10.4 09/21/2015 09/24/2015 Inactive Lantus Solostar 100 unit/mL (3 mL) subcutaneous insulin pen RxNorm: 114581 25 Unit(s) SQ QHS 08/29/2015 09/20/2015 Inactive Novolog Flexpen 100 unit/mL subcutaneous RxNorm: 0635519 8 Unit(s) SQ am and noon BID 08/29/2015 09/20/2015 Inactive Lantus Solostar 100 unit/mL (3 mL) subcutaneous insulin pen RxNorm: 757454 25 Unit(s) SQ QHS 08/25/2015 08/28/2015 Inactive losartan 50 mg tablet RxNorm: 432142 1 Tablet(s) PO daily 08/22/2015 09/20/2015 Inactive levothyroxine 125 mcg tablet RxNorm: 632387 1 Tablet(s) PO daily 01/23/2015 04/22/2015 Inactive Plavix 75 mg tablet RxNorm: 180639 1 Tablet(s) PO daily 01/02/2015 09/22/2016 Inactive Aranesp 25 mcg/mL (in polysorbate) Injection RxNorm: 307718 Milliliter(s) Inj 30mcg q 2 weeks 01/02/2015 05/08/2016 Inactive [SAVINGS FOR NON-COVERED DRUGS -- BIN:[id number], PCN: [id number], Group: [id number], ID# [id number], Questions: . THIS IS NOT INSURANCE.] aspirin 81 mg chewable tablet RxNorm: 434520 1 Tablet(s) PO daily 01/02/2015 05/07/2016 Inactive Coreg 6.25 mg tablet RxNorm: 089197 1 Tablet(s) PO BID 01/02/2015 10/08/2015 Inactive Fish Oil 300 mg-1,000 mg capsule RxNorm: 483384 2 Capsule(s) PO daily No Start Date Active sodium bicarbonate 650 mg tablet RxNorm: 112297 1 Tablet(s) PO BID No Start Date Active Crestor 40 mg tablet RxNorm: 645726 1 Tablet(s) PO daily No Start Date Active Multiple Vitamins tablet RxNorm: 1 Tablet(s) PO daily No Start Date Active Vitamin D3 2,000 unit tablet RxNorm: 874130 1 Tablet(s) PO daily No Start Date Active ferrous sulfate 325 mg (65 mg iron) tablet RxNorm: 600096 1 Tablet(s) PO daily No Start Date Active Vitamin B12 Oral RxNorm: oral No Start Date Active Aranesp 40 mcg/mL (in polysorbate) Injection RxNorm: 880577 Inject 1 Milliliter(s) SQ Every 2 weeks No Start Date Active levothyroxine 100 mcg tablet RxNorm: 402206 1 Tablet(s) PO daily No Start Date Active calcium carbonate 200 mg calcium (500 mg) chewable tablet RxNorm: 115964 1-2 Tablet(s) PO daily No Start Date Active ferrous sulfate 325 mg (65 mg iron) tablet RxNorm: 489188 1 Tablet(s) PO daily No Start Date 05/07/2016 Inactive Aranesp 25 mcg/mL (in polysorbate) Injection RxNorm: 443868 injection No Start Date 01/01/2015 Inactive lovastatin 40 mg tablet RxNorm: 174665 1 Tablet(s) PO daily No Start Date 05/07/2016 Inactive Lipitor 40 mg tablet RxNorm: 613986 1 Tablet(s) PO QHS No Start Date 01/01/2015 Inactive amlodipine 2.5 mg tablet RxNorm: 469867 1 Tablet(s) PO BID No Start Date 12/16/2014 Inactive sodium bicarbonate 325 mg tablet RxNorm: 008071 1 Tablet(s) PO BID No Start Date 05/07/2016 Inactive levothyroxine 150 mcg tablet RxNorm: 780010 1 Tablet(s) PO daily No Start Date 01/22/2015 Inactive Lantus Solostar 100 unit/mL (3 mL) subcutaneous insulin pen RxNorm: 104869 20 Unit(s) SQ QHS No Start Date 08/24/2015 Inactive Lantus 100 unit/mL subcutaneous solution RxNorm: 970000 30 Unit(s) SQ QHS No Start Date 09/18/2016 Inactive Novolog 100 unit/mL subcutaneous solution RxNorm: 063932 10 Unit(s) SQ BID in the AM and at noon No Start Date 07/02/2017 Inactive aspirin 81 mg tablet RxNorm: 751973 1 Tablet(s) PO daily No Start Date 01/01/2015 Inactive Novolog Flexpen 100 unit/mL subcutaneous RxNorm: 2395801 8 Unit(s) SQ am and noon BID No Start Date 08/28/2015 Inactive glimepiride 4 mg tablet RxNorm: 321049 1 Tablet(s) PO daily No Start Date 10/08/2015 Inactive Vitamin D3 2,000 unit capsule RxNorm: 636492 1 Capsule(s) PO daily No Start Date 05/08/2016 Inactive metoprolol tartrate 12.5 Tablet RxNorm: 1 Tablet(s) PO BID No Start Date 12/16/2014 Inactive Medication Administered No Medication Administered data Immunizations Vaccine Codes Date Status Influenza CVX: 141 06/06/2017 completed Assessments Condition Codes Effective Dates Dysuria ICD-10: R30.0 ICD-9: 788.1 09/11/2018 Dementia in other diseases classified elsewhere with behavioral disturbance ICD-10: F02.81 ICD-9: 294.8 08/26/2018 Other allergic rhinitis ICD-10: J30.89 ICD-9: 477.8 07/20/2018 Essential (primary) hypertension ICD-10: I10 ICD-9: 401.9 07/20/2018 Type 2 diabetes mellitus with other specified complication ICD- 10: E11.69 ICD-9: 250.00 07/20/2018 Chronic kidney disease, stage 4 (severe) ICD-10: N18.4 ICD-9: 585.4 07/20/2018 Type 2 diabetes mellitus with hyperglycemia [...] 30.6 pg 09/16/2018 Cbc With Differential Ord2 Glades% 10.1 % 09/16/2018 Cbc With Differential Ord2 [...] 2.10 K/ul 09/16/2018 Cbc With Differential Ord2 Glades ABS# 0.5 K/ul 09/16/2018 Cbc With Differential [...] (3rd IS) 1.93 uIU/mL 08/24/2018 Free T4 Bfr974 FREE T4 1.05 ng/dL 08/24/2018 Urinalysis Ord28 [...] 30.3 % 08/17/2018 Cbc With Differential Ord2 Glades% 9.8 % 08/17/2018 Cbc With Differential Ord2 [...] 2.14 K/ul 08/17/2018 Cbc With Differential Ord2 Glades ABS# 0.7 K/ul 08/17/2018 Cbc With Differential Ord2 Eos ABS# 0.2 K/ul 08/17/2018 Cbc With Differential Ord2 Baso ABS# 0.0 K/ul 08/17/2018 Comp Metabolic Goz185 NA 143 mEq/L 04/14/2018 Comp Metabolic Ycf007 K 4.6 mEq/L 04/14/2018 Comp Metabolic Gff728 CL 108 mEq/L 04/14/2018 Comp Metabolic Quw997 CO2 23.0 mEq/L 04/14/2018 Comp Metabolic Blu746 ANION GAP 17 04/14/2018 Comp Metabolic Xds144 GLUCOSE 54 mg/dL 04/14/2018 Comp Metabolic Plt059 Creat 2.7 mg/dL 04/14/2018 Comp Metabolic Qkl236 eGFR 18 ml/min/1.73m2 04/14/2018 Comp Metabolic Ohe577 BUN 45 mg/dL 04/14/2018 Comp Metabolic Mgp619 B/C Ratio 16.9 Ratio 04/14/2018 Comp Metabolic Edk910 CALCIUM 8.3 mg/dL 04/14/2018 Comp Metabolic Ldu763 ALK PHOS 113 U/L 04/14/2018 Comp Metabolic Eyo103 AST(SGOT) 31 U/L 04/14/2018 Comp Metabolic Xgg413 ALT(SGPT) 33 U/L 04/14/2018 Comp Metabolic Ait427 BILI T 0.5 mg/dL 04/14/2018 Comp Metabolic Nwy055 ALBUMIN 3.6 g/dL 04/14/2018 Comp Metabolic Kml544 TPRO 6.5 g/dL 04/14/2018 Comp Metabolic Enm889 GLOB 2.9 g/dL 04/14/2018 Comp Metabolic Rcx496 A/G Ratio 1.2 Ratio 04/14/2018 Comp Metabolic Kkq570 Osmo 294 mOsmo 04/14/2018 Lipid Ord30 CHOL [...] Ord28 U-Com Culture to follow 01/21/2018 %Hba1C Ioe145 % HbA1c 68147- 6 7.4 % 11/03/2017 %Hba1C Yis139 Gluc Ave 166 mg/dL 11/03/2017 Urine Culture [...] 9.9 g/dl 09/20/2016 Cbc With Differential Ord2 Neut% 60.5 % 09/20/2016 Cbc With Differential Ord2 HCT 32.0 % 09/20/2016 Cbc With Differential Ord2 Lymph% 22.5 % 09/20/2016 Cbc With Differential Ord2 MCV 85.1 fl 09/20/2016 Cbc With Differential Ord2 Glades% 11.3 % 09/20/2016 Cbc With Differential Ord2 MCH 26.3 pg 09/20/2016 Cbc With Differential Ord2 MCHC 30.9 pg 09/20/2016 Cbc With Differential Ord2 Eos% 3.8 % 09/20/2016 Cbc With Differential Ord2 Baso% 1.9 % 09/20/2016 Cbc With Differential Ord2 PLT 196 K/ul 09/20/2016 Cbc With Differential Ord2 Neut ABS# 2.91 K/ul 09/20/2016 Cbc With Differential Ord2 RDW 16.0 % 09/20/2016 Cbc With Differential Ord2 Lymph ABS# 1.08 K/ul 09/20/2016 Cbc With Differential Ord2 Glades ABS# 0.5 K/ul 09/20/2016 Cbc With Differential Ord2 Eos ABS# 0.2 K/ul 09/20/2016 Cbc With Differential Ord2 Baso ABS# 0.1 K/ul 09/20/2016 Comp Metabolic Fgx280 NA 141 mEq/L 09/20/2016 Comp Metabolic Ujr823 K 5.9 Result Verified By Repeat Analysis mEq/L 09/20/2016 Comp Metabolic Nvf804 CL 110 mEq/L 09/20/2016 Comp Metabolic Pts082 CO2 23.0 mEq/L 09/20/2016 Comp Metabolic Tfm069 ANION GAP 14 09/20/2016 Comp Metabolic Yuc699 GLUCOSE 101 mg/dL 09/20/2016 Comp Metabolic Lxc848 Creat 2.2 mg/dL 09/20/2016 Comp Metabolic Tcs170 eGFR 23 ml/min/1.73m2 09/20/2016 Comp Metabolic Ehx829 BUN 49 mg/dL 09/20/2016 Comp Metabolic Wky421 B/C Ratio 22.0 Ratio 09/20/2016 Comp Metabolic Rpx879 CALCIUM 8.7 mg/dL 09/20/2016 Comp Metabolic Hcj348 ALK PHOS 142 U/L 09/20/2016 Comp Metabolic Okt087 AST(SGOT) 26 U/L 09/20/2016 Comp Metabolic Xml143 ALT(SGPT) 27 U/L 09/20/2016 Comp Metabolic Zvo789 BILI T 0.3 mg/dL 09/20/2016 Comp Metabolic Yyb331 ALBUMIN 4.0 g/dL 09/20/2016 Comp Metabolic Lpy870 TPRO 7.6 g/dL 09/20/2016 Comp Metabolic Jvi198 GLOB 3.6 g/dL 09/20/2016 Comp Metabolic Vdp279 A/G Ratio 1.1 Ratio 09/20/2016 Comp Metabolic Uto272 Osmo 294 mOsmo 09/20/2016 %Hba1C Cuy960 % HbA1c 56260- 6 6.7 % 09/20/2016 %Hba1C Ezh083 Gluc Ave 146 mg/dL 09/20/2016 Urinalysis Ord28 [...] 05/31/2016 Urinalysis Ord28 U-Yeast NEGATIVE 05/31/2016 %Hba1C Dhk268 % HbA1c 79770- 6 13.5 % 03/28/2016 %Hba1C Ruz323 Gluc Ave 341 mg/dL 03/28/2016 Tsh Ord6 hTSH II 16.02 uIU/mL 03/28/2016 Comp Metabolic Dhf664 NA 133 mEq/L 03/28/2016 Comp Metabolic Ubm464 K 5.4 mEq/L 03/28/2016 Comp Metabolic Njg674 CL 102 mEq/L 03/28/2016 Comp Metabolic Duq164 CO2 22.0 mEq/L 03/28/2016 Comp Metabolic Yvs767 ANION GAP 14 03/28/2016 Comp Metabolic Guv688 GLUCOSE 432 mg/dL 03/28/2016 Comp Metabolic Heu085 Creat 1.9 mg/dL 03/28/2016 Comp Metabolic Vui789 eGFR 27 ml/min/1.73m2 03/28/2016 Comp Metabolic Mjt904 BUN 38 mg/dL 03/28/2016 Comp Metabolic Ckw123 B/C Ratio 19.6 Ratio 03/28/2016 Comp Metabolic Acb890 CALCIUM 8.9 mg/dL 03/28/2016 Comp Metabolic Wgn137 ALK PHOS 84 U/L 03/28/2016 Comp Metabolic Cdk236 AST(SGOT) 9 U/L 03/28/2016 Comp Metabolic Wla618 ALT(SGPT) 6 U/L 03/28/2016 Comp Metabolic Gup266 BILI T 0.4 mg/dL 03/28/2016 Comp Metabolic Vkc274 ALBUMIN 3.6 g/dL 03/28/2016 Comp Metabolic Qdw097 TPRO 6.8 g/dL 03/28/2016 Comp Metabolic Aci999 GLOB 3.2 g/dL 03/28/2016 Comp Metabolic Wye679 A/G Ratio 1.1 Ratio 03/28/2016 Comp Metabolic Sco605 Osmo 294 mOsmo 03/28/2016 Free T4 Dkr364 FREE T4 0.72 ng/dL 03/28/2016 Comp Metabolic Jdt338 NA 132 mEq/L 12/22/2015 Comp Metabolic Buc269 K 4.6 mEq/L 12/22/2015 Comp Metabolic Zeg495 CL 97 mEq/L 12/22/2015 Comp Metabolic Szj079 CO2 24.0 mEq/L 12/22/2015 Comp Metabolic Eab446 ANION GAP 16 12/22/2015 Comp Metabolic Uyn024 GLUCOSE 354 mg/dL 12/22/2015 Comp Metabolic Mqw081 Creat 1.8 mg/dL 12/22/2015 Comp Metabolic Oue455 eGFR 29 ml/min/1.73m2 12/22/2015 Comp Metabolic Vmh155 BUN 47 mg/dL 12/22/2015 Comp Metabolic Ela006 B/C Ratio 26.3 Ratio 12/22/2015 Comp Metabolic Abi159 CALCIUM 9.5 mg/dL 12/22/2015 Comp Metabolic Nvf544 ALK PHOS 100 U/L 12/22/2015 Comp Metabolic Dgz365 AST(SGOT) 15 U/L 12/22/2015 Comp Metabolic Aor842 ALT(SGPT) 11 U/L 12/22/2015 Comp Metabolic Wiy626 BILI T 0.4 mg/dL 12/22/2015 Comp Metabolic Ock715 ALBUMIN 3.7 g/dL 12/22/2015 Comp Metabolic Owy704 TPRO 7.1 g/dL 12/22/2015 Comp Metabolic Sfw847 GLOB 3.4 g/dL 12/22/2015 Comp Metabolic Zrm515 A/G Ratio 1.1 Ratio 12/22/2015 Comp Metabolic Csg140 Osmo 291 mOsmo 12/22/2015 Microalbumin Dst695 MicroAlb 25.4 mg/dL 12/22/2015 Random Urine Protein/Creatinine Ratio Ien4395 U Prot 63.3 mg/dl 12/22/2015 Random Urine Protein/Creatinine Ratio Jyp4194 U CREAT 83.0 mg/dL 12/22/2015 Random Urine Protein/Creatinine Ratio Fyq8848 R MTP/Creat Ratio 0.76 12/22/2015 %Hba1C Xbv056 % HbA1c 60304- 6 11.9 % 12/21/2015 %Hba1C Nwe083 Gluc Ave 295 mg/dL 12/21/2015 Review of [...] lips 09/19/2016 None Full Exam - General 1995 [...] Procedure Codes Date DESTRUCT PREMALG LESION CPT-4: 51981 10/07/2016 Vital Signs Date Vital 08/26/2018 Blood Pressure 1: 146/52 Code: 8480-6 BMI: 28.0 Code: 78144-2 Heart Rate 1: 68 bpm Height: 5'3" SpO2: 98% Weight: 158 lbs 07/20/2018 Blood Pressure 1: 144/70 Code: 8480-6 BMI: 28.3 Code: 96525-2 Heart Rate 1: 82 bpm Height: 5'3" SpO2: 100% Weight: 160 lbs 03/05/2018 Blood Pressure 1: 144/66 Code: 8480-6 BMI: 28.7 Code: 96972-3 Heart Rate 1: 83 bpm Height: 5'3" SpO2: 99% Weight: 162 lbs 10/30/2017 Blood Pressure 1: 122/58 Code: 8480-6 BMI: 30.1 Code: 67890-6 Heart Rate 1: 78 bpm Height: 5'3" SpO2: 98% Weight: 170 lbs 07/03/2017 Blood Pressure 1: 148/78 Code: 8480-6 BMI: 29.8 Code: 14834-8 Heart Rate 1: 80 bpm Height: 5'3" SpO2: 99% Weight: 168 lbs 04/03/2017 Blood Pressure 1: 144/64 Code: 8480-6 BMI: 29.1 Code: 30881-2 Heart Rate 1: 78 bpm Height: 5'3" SpO2: 98% Weight: 164 lbs 12/31/2016 Blood Pressure 1: 138/70 Code: 8480-6 BMI: 30.3 Code: 82860-3 Heart Rate 1: 84 bpm Height: 5'3" SpO2: 90% Weight: 171 lbs 10/07/2016 Blood Pressure 1: 146/78 Code: 8480-6 BMI: 29.4 Code: 85038-4 Heart Rate 1: 73 bpm Height: 5'3" SpO2: 99% Weight: 166 lbs 09/19/2016 Blood Pressure 1: 168/76 Code: 8480-6 BMI: 29.2 Code: 50754-6 Heart Rate 1: 88 bpm Height: 5'3" SpO2: 98% Weight: 165 lbs 07/08/2016 Blood Pressure 1: 120/80 Code: 8480-6 BMI: 28.3 Code: 53411-8 Heart Rate 1: 80 bpm Height: 5'3" SpO2: 99% Weight: 160 lbs 05/08/2016 Blood Pressure 1: 138/70 Code: 8480-6 BMI: 26.9 Code: 78773-0 Heart Rate 1: 93 bpm Height: 5'3" SpO2: 98% Weight: 152 lbs 03/28/2016 Blood Pressure 1: 144/74 Code: 8480-6 BMI: 27.6 Code: 67811-3 Heart Rate 1: 85 bpm Height: 5'3" SpO2: 99% Weight: 156 lbs 01/22/2016 Blood Pressure 1: 140/82 Code: 8480-6 BMI: 28.9 Code: 49176-4 Heart Rate 1: 104 bpm Height: 5'3" SpO2: 94% Weight: 163 lbs 12/21/2015 Blood Pressure 1: 140/90 Code: 8480-6 BMI: 28.7 Code: 26015-9 Heart Rate 1: 99 bpm Height: 5'3" SpO2: 96% Weight: 162 lbs 11/06/2015 Blood Pressure 1: 110/60 Code: 8480-6 BMI: 29.8 Code: 83905-9 Heart Rate 1: 93 bpm Height: 5'3" SpO2: 98% Weight: 168 lbs 10/20/2015 Blood Pressure 1: 152/62 Code: 8480-6 BMI: 29.8 Code: 97816-3 Heart Rate 1: 86 bpm Height: 5'3" SpO2: 96% Weight: 168 lbs 10/09/2015 Blood Pressure 1: 152/60 Code: 8480-6 BMI: 30.2 Code: 87298-5 Heart Rate 1: 83 bpm Height: 5'3" SpO2: 98% Weight: 170 lbs 8 oz 09/21/2015 Blood Pressure 1: 160/74 Code: 8480-6 Blood Pressure 1: 168/72 Code: 8480-6 BMI: 29.8 Code: 58320-2 Heart Rate 1: 82 bpm Height: 5'3" SpO2: 99% Weight: 168 lbs 08/22/2015 Blood Pressure 1: 170/82 Code: 8480-6 Blood Pressure 1: 178/78 Code: 8480-6 BMI: 29.2 Code: 84249-8 Heart Rate 1: 85 bpm Height: 5'3" SpO2: 99% Weight: 165 lbs 04/07/2015 Blood Pressure 1: 140/68 Code: 8480-6 BMI: 29.9 Code: 47475-6 Heart Rate 1: 81 bpm Height: 5'3" SpO2: 99% Weight: 169 lbs 01/02/2015 Blood Pressure 1: 162/72 Code: 8480-6 BMI: 30.3 Code: 54440-2 Heart Rate 1: 88 bpm Height: 5'3" [...] at home, see scanned readings 10/07/[address] [facility] diabetes mellitus Pertinent Findings Denies [...] data Encounters Encounter Performer Location Codes Date 64398 EST. PATIENT, LEVEL III Diagnosis: Dementia in other diseases classified elsewhere with behavioral disturbance[ICD10: F02.81] Cary Garg MD, [facility] CPT-4: 51486 08/26/2018 ([id number] 72685 EST. PATIENT, LEVEL IV Diagnosis: Type 2 diabetes mellitus with other specified complication[ICD10: E11.69] Diagnosis: Essential (primary) hypertension[ICD10: I10] Diagnosis: Other allergic rhinitis[ICD10: J30.89] Diagnosis: Chronic kidney disease, stage 4 (severe)[ICD10: N18.4] Cordelia Garg MD, [facility] CPT-4: 67099 07/20/2018 ([id number]) 10051 EST. PATIENT, LEVEL III Diagnosis: Essential (primary) hypertension[ICD10: I10] Diagnosis: Type 2 diabetes mellitus with other specified complication[ICD10: E11.69] Cordelia Garg MD, [facility] CPT-4: 96495 03/05/2018 ([id number] 03798 EST. PATIENT, LEVEL IV Diagnosis: Type 2 diabetes mellitus with hyperglycemia[ICD10: E11.65] Diagnosis: Hypothyroidism, unspecified[ICD10: E03.9] Diagnosis: Essential (primary) hypertension[ICD10: I10] Diagnosis: Chronic kidney disease, stage 4 (severe)[ICD10: N18.4] Cordelia Garg MD, [facility] CPT-4: 09704 10/30/2017 ([id number]) 90806 EST. PATIENT, LEVEL IV Diagnosis: Hypothyroidism, unspecified[ICD10: E03.9] Diagnosis: Type 2 diabetes mellitus with hyperglycemia[ICD10: E11.65] Diagnosis: Essential (primary) hypertension[ICD10: I10] Diagnosis: Chronic kidney disease, stage 4 (severe)[ICD10: N18.4] Cordelia Garg MD, [facility] CPT-4: 94734 07/03/2017 ([id number]) 75657 EST. PATIENT, LEVEL III Diagnosis: Type 2 diabetes mellitus with hyperglycemia[ICD10: E11.65] Diagnosis: Essential (primary) hypertension[ICD10: I10] Diagnosis: Chronic kidney disease, stage 4 (severe)[ICD10: N18.4] Cordelia Garg MD, [facility] CPT-4: 41898 04/03/2017 ([id number]) 87972 EST. PATIENT, LEVEL III Diagnosis: Type 2 diabetes mellitus with hyperglycemia[ICD10: E11.65] Cordelia Garg MD, [facility] CPT-4: 39206 12/31/2016 ([id number]) 68581 EST. PATIENT, LEVEL II Diagnosis: Type 2 diabetes mellitus with hyperglycemia[ICD10: E11.65] Diagnosis: Essential (primary) hypertension[ICD10: I10] Diagnosis: Actinic keratosis[ICD10: L57.0] Cordelia Garg MD, [facility] CPT-4: 26469 10/07/2016 ([id number]) 08151 EST. PATIENT, LEVEL IV Diagnosis: Type 2 diabetes mellitus with hyperglycemia[ICD10: E11.65] Diagnosis: Essential (primary) hypertension[ICD10: I10] Cordelia Garg MD, [facility] CPT-4: 12734 09/19/2016 ([id number]) 36892 EST. PATIENT, LEVEL III Diagnosis: Type 2 diabetes mellitus with hyperglycemia[ICD10: E11.65] Diagnosis: Gastro-esophageal reflux disease without esophagitis[ICD10: K21.9] Cordelia Garg MD, [facility] CPT-4: 21428 07/08/2016 ([id number]) 80373 EST. PATIENT, LEVEL III Diagnosis: Type 2 diabetes mellitus with hyperglycemia[ICD10: E11.65] Riana Garg MD, [facility] CPT-4: 05294 05/08/2016 ([id number]) 04444 EST. PATIENT, LEVEL IV Diagnosis: Essential (primary) hypertension[ICD10: I10] Diagnosis: Type 2 diabetes mellitus with hyperglycemia[ICD10: E11.65] Diagnosis: Hypothyroidism, unspecified[ICD10: E03.9] Diagnosis: Chronic kidney disease, stage 4 (severe)[ICD10: N18.4] Cordelia Garg MD [facility] CPT-4: 66681 03/28/2016 ([id number]) 05256 EST. PATIENT, LEVEL III Diagnosis: Type 2 diabetes mellitus with hyperglycemia[ICD10: E11.65] Diagnosis: Essential (primary) hypertension[ICD10: I10] Cordelia Garg MD [facility] CPT-4: 04381 01/22/2016 ([id number]) 68147 EST. PATIENT, LEVEL IV Diagnosis: Type 2 diabetes mellitus with hyperglycemia[ICD10: E11.65] Diagnosis: Hypothyroidism, unspecified[ICD10: E03.9] Diagnosis: Essential (primary) hypertension[ICD10: I10] Diagnosis: Chronic kidney disease, stage 4 (severe)[ICD10: N18.4] Riana Garg MD [facility] CPT-4: 42170 12/21/2015 ([id number]) 64490 EST. PATIENT, LEVEL III Diagnosis: Type 2 diabetes mellitus with hyperglycemia[ICD10: E11.65] Riana Garg MD [facility] CPT-4: 20644 11/06/2015 ([id number]) 72969 EST. PATIENT, LEVEL IV Diagnosis: Type 2 diabetes mellitus with hyperglycemia[ICD10: E11.65] Diagnosis: Essential (primary) hypertension[ICD10: I10] Cordelia Garg MD [facility] CPT-4: 50356 10/20/2015 ([id number]) 58639 EST. PATIENT, LEVEL IV Diagnosis: Type 2 diabetes mellitus with hyperglycemia[ICD10: E11.65] Diagnosis: Essential (primary) hypertension[ICD10: I10] Diagnosis: Actinic keratosis[ICD10: L57.0] Riana Garg MD [facility] CPT-4: 61625 10/09/2015 ([id number]) 89699 EST. PATIENT, LEVEL IV Diagnosis: Type 2 diabetes mellitus with hyperglycemia[ICD10: E11.65] Diagnosis: Essential (primary) hypertension[ICD10: I10] Riana Garg MD, [facility] CPT-4: 74713 09/21/2015 ([id number]) 38673 EST. PATIENT, LEVEL IV Diagnosis: Type 2 diabetes mellitus with hyperglycemia[ICD10: E11.65] Diagnosis: Hypothyroidism, unspecified[ICD10: E03.9] Diagnosis: Essential (primary) hypertension[ICD10: I10] Riana Garg MD, [facility] CPT-4: 96735 08/22/2015 ([id number]) 80048 EST. PATIENT, LEVEL IV Diagnosis: ESSENTIAL HYPERTENSION[ICD9: 401.9] Diagnosis: HYPERLIPIDEMIA[ICD9: 272.4] Diagnosis: DIABETES TYPE II[ICD9: 250.00] Riana Garg MD, [facility] CPT-4: 76387 04/07/2015 ([id number]) OFFICE/OUTPATIENT VISIT NEW Diagnosis: ESSENTIAL HYPERTENSION[ICD9: 401.9] Diagnosis: Diabetes mellitus out of control[ICD9: 250.02] Diagnosis: HYPOTHYROIDISM[ICD9: 244.9] Diagnosis: HYPERLIPIDEMIA[ICD9: 272.4] Riana Garg MD, [facility] CPT-4: 44989 01/02/2015 Plan of Care Planned Activity Notes Codes Status Date Patient Education: Patient Medication Summary Completed 09/11/2018 [...] for effectiveness. 08/26/2018 Appointment: Cary Rivera WPtel: [address] [place], [place] [phone] (30 min) [facility] 08/26/2018 Patient Education: Patient Medication Summary Completed [...] starting to become less controlled. CKD-patient sees technical aid-has decided not to do dialysis right now Allergies-rx for flonase 07/20/2018 Appointment: Cordelia Kumar WPtel: [phone] [phone] (15 min) Moderate 07/20/2018 Patient Education: Patient [...] controlled. 03/05/2018 Appointment: Cordelia Kumar WPtel: [phone] [phone] (30 min) Complex 03/05/2018 Patient Education: Patient [...] gel 10/30/2017 Appointment: Cordelia Kumar WPtel: [phone] [phone] (30 min) Complex 10/30/2017 Patient Education: Patient [...] starting to become less controlled. Left thumb jmdi-btnqdvk-itghauqrl voltaren gel if symptoms persist 07/03/2017 App[facility]ment: [phone] ([facility] min) Complex 07/03/2017 Patient Education: Patient [...] to become less controlled. 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 Chronic renal disease-sees technical aid and also biofuels manager for management of anemia 04/03/2017 Appointment: Cordelia Kumar WPtel: [address] [place], [place] [phone] (30 min) Complex 04/03/2017 Patient Education: Patient [...] less controlled. 12/31/2016 Appointment: Cordelia Kumar WPtel: [phone] [place] (30 min) Complex 12/31/2016 Patient Education: Patient [...] concerns. 10/07/2016 Appointment: Cord[facility]Ptel: [phone] [phone] (30 min) Complex 10/07/2016 Appointment: [facility]Ptel: [phone] [phone] (30 min) Complex 10/07/2016 Patient Education: Patient [...] home. 09/19/2016 Appointment: Cordelia Kumar WPtel: [address] (30 min) Complex 09/19/2016 Patient Education: [...] Completed 07/08/2016 Appointment: Cordelia Kumar WPtel: [phone] [facility] [place] [address] (30 min) Complex 06/20/2016 Visit Plan: Diabetes [...] stage 4- patient to make appt with [facility] 03/28/2016 Visit Plan: Hypertension - [...] stage 4- patient to make appt with [facility] Addendum: Patient noncompliant with blood sugar logs-she has been instructed to test QID but only tests daily- she did not bring her log for review today.- Patient has since moved to [facility] since this office visit. They are [...] stage 4- patient to make appt with [facility] Addendum: Patient has since moved to [facility] since this office visit. They are [...] stage 4- patient to make appt with [facility] Addendum: Patient noncompliant with blood sugar logs-she has been instructed to test QID but only tests daily- she did not bring her log for review today.- Patient has since moved to [facility] and they are checking her blood sugars AC and HS due to uncontrolled diabetes-she is on a sliding scale insulin which requires more frequent monitoring of blood sugars. 03/28/2016 Patient Education: Patient Medication Summary Completed 03/28/2016 Appointment: Cordelia Kumar WPtel: [phone] [phone] (30 min) Complex 03/26/2016 Appointment: Cordelia Kumar WPtel: [phone] [phone] (30 min) Complex 02/20/2016 Visit Plan: Diabetes [...] at home. 01/22/2016 Appointment: Cordelia Kumar WPtel: [phone] [phone] [place] (30 min) Complex 01/22/2016 Patient Education: [...] pt has been seeing a group in [facility] - but would like to be seen in [place] to avoid excessive travel. 12/21/2015 Visit Plan: [...] Summary Completed 12/21/2015 Appointment: [facility] [place] (15 min) Moderate 12/18/2015 Visit Plan: DM [...] me dications. 04/07/2015 Appointment: Riana Garg [facility]Ptel[facility] [facility] 04/07/2015 Patient Education: Patient Medication [...] control. 01/02/2015 Appointment: [phone] [facility] [place] ([place] New Patient 01/02/2015 Patient Education: Patient Medication Summary Completed 01/02/2015 Patient Education: Hypertension Completed 01/02/2015 Instructions Comment . DM - medications unchanged today - [...] starting to become less controlled. Left thumb iulf-thggjpi-zldobcolz voltaren gel if symptoms persist DO NOT [...] starting to become less controlled. CKD-patient sees technical aid-has decided not to do dialysis right now [...] to become less controlled. Chronic renal disease-sees technical aid and also biofuels manager for management of anemia . Diabetes [...] disease stage 4-patient to make appt with [facility] . Hypertension - well controlled [...] disease stage 4-patient to make appt with [facility] Addendum: Patient noncompliant with blood sugar logs-she has been instructed to test QID but only tests daily-she did not bring her log for review today.- Patient has since moved to [facility] since this office visit. They are [...] will send a referral today to the [facility] - they are located in the [facility] at [address] [place] [address] in [place] - phone number is [phone] . Hypertension - well controlled - continue [...] pt has been seeing a group in [facility] - but would like to be seen in [place] to avoid excessive travel. . Dementia with [...] pustular drainage, or any other acute concerns. will have [facility] fax over blood sugar log. [...] to become less controlled. Chronic renal disease-sees technical aid and also biofuels manager for management of anemia . Hypertension [...] disease stage 4-patient to make appt with [facility] Addendum: Patient has since moved to [facility] since this office visit. They are [...] disease stage 4-patient to make appt with [facility] Addendum: Patient noncompliant with blood sugar logs-she has been instructed to test QID but only tests daily-she did not bring her log for review today.- Patient has since moved to [facility] and they are checking her blood sugars AC and HS due to uncontrolled diabetes-she is on a sliding scale insulin which requires more frequent monitoring of blood sugars. Next time you have an appt - please bring in your blood glucose log sheet Dr. Garg will send a referral today to the [facility] - they are located in the [facility] at [facility] in [place] - phone number is [phone] . Hypertension - well controlled - continue [...]
--- OUTSIDE RECORDS SUMMARY | 2019-02-16 19:03 | XMS REPORT | CCD ---
Author Author [facility] Organization [facility] Address [address] [place] [address] Phone Care Team Providers Care Information Technology Account Manager Name Role Phone PP Unavailable CCM Unavailable Summary Purpose Interface Exchange Insurance Providers Payer name Policy type / Coverage type Covered green party ID Effective Begin Date Effective End Date WPS Medicare Part B [id number] 2015 Unknown [facility] Assistance [id number] 2015 Unknown Family history Mother Diagnosis Age At Onset Anemia Unknown Stroke Unknown Arthritis Unknown Hypertension Unknown Father Diagnosis Age At Onset Cancer Unknown Social History Social History Element Codes Description Effective Dates Marital status Unknown 01/02/2015 Number of children Unknown 3 01/02/2015 Employment Unknown Retired 01/02/[address]: 9148589 Quit over 10 years ago 25 years ago 01/02/[address]: 312424306 Never drinks alcohol 01/02/2015 Allergies, Adverse Reactions, [...] Fill Instructions risperidone 0.25 mg tablet RxNorm: 608378 1 Tablet(s) PO BID 09/09/2018 01/06/2019 Active Risperdal 0.25 mg tablet RxNorm: 778543 1 Tablet(s) PO BID 09/09/2018 10/08/2018 Active Voltaren 1 % topical gel RxNorm: 016305 2 Gram(s) TOP QID 10/30/2017 No Stop Date Active Novolog 100 unit/mL subcutaneous solution RxNorm: 483555 5-10 Unit(s) SQ QID per sliding scale 07/03/2017 No Stop Date Active Novolog 100 unit/mL subcutaneous solution RxNorm: 461405 8 Unit(s) SQ at noon 09/27/2016 No Stop Date Active Novolog Flexpen 100 unit/mL subcutaneous RxNorm: 4507566 8 Unit(s) SQ at noon 09/27/2016 09/27/2016 Inactive Novolog Flexpen 100 unit/mL subcutaneous RxNorm: 1097602 8 Unit(s) SQ at noon 09/27/2016 09/26/2016 Inactive Novolog 100 unit/mL subcutaneous solution RxNorm: 157531 9 Unit(s) SQ at noon 09/27/2016 09/26/2016 Inactive Lantus 100 unit/mL subcutaneous solution RxNorm: 089123 25 Unit(s) SQ QHS 09/19/2016 No Stop Date Active Coreg 6.25 mg tablet RxNorm: 755303 2 Tablet(s) PO BID 07/08/2016 09/30/2017 Inactive Lantus Solostar 100 unit/mL (3 mL) subcutaneous insulin pen RxNorm: 526127 25 Unit(s) SQ QAM and 50 Units at bedtime 04/05/2016 05/07/2016 Inactive Synthroid 150 mcg tablet RxNorm: 166031 1 Tablet(s) PO daily 04/05/2016 07/02/2017 Inactive Lantus Solostar 100 unit/mL (3 mL) subcutaneous insulin pen RxNorm: 377979 20 Unit(s) SQ QAM and 45 Units at bedtime 01/03/2016 01/07/2016 Inactive Synthroid 125 mcg tablet RxNorm: 570292 1 Tablet(s) PO daily 12/20/2015 12/19/2015 Inactive Synthroid 125 mcg tablet RxNorm: 786557 1 Tablet(s) PO daily 12/20/2015 04/04/2016 Inactive Novolog Flexpen 100 unit/mL subcutaneous RxNorm: 5502902 15 Unit(s) SQ am and 15 units @ noon BID 11/15/2015 05/07/2016 Inactive Lantus Solostar 100 unit/mL (3 mL) subcutaneous insulin pen RxNorm: 816388 10 Unit(s) SQ QAM and 40 Units at bedtime 11/15/2015 11/19/2015 Inactive increased from 25u Coreg 6.25 mg tablet RxNorm: 460494 1.5 Tablet(s) PO BID 10/09/2015 07/07/2016 Inactive Lantus Solostar 100 unit/mL (3 mL) subcutaneous insulin pen RxNorm: 699576 35 Unit(s) SQ QHS 09/26/2015 11/14/2015 Inactive increased from 25u Novolog Flexpen 100 unit/mL subcutaneous RxNorm: 8345746 12 Unit(s) SQ am and 12 units @ noon BID 09/25/2015 11/14/2015 Inactive losartan 100 mg tablet RxNorm: 023268 1 Tablet(s) PO daily 09/21/2015 09/14/2016 Inactive Lantus Solostar 100 unit/mL (3 mL) subcutaneous insulin pen RxNorm: 921462 35 Unit(s) SQ QHS 09/21/2015 09/25/2015 Inactive Novolog Flexpen 100 unit/mL subcutaneous RxNorm: 4871943 12 Unit(s) SQ am and 12 units @ noon BID - dr to increase based on glucose readings hgba1c 10.4 09/21/2015 09/24/2015 Inactive Lantus Solostar 100 unit/mL (3 mL) subcutaneous insulin pen RxNorm: 865340 25 Unit(s) SQ QHS 08/29/2015 09/20/2015 Inactive Novolog Flexpen 100 unit/mL subcutaneous RxNorm: 0405566 8 Unit(s) SQ am and noon BID 08/29/2015 09/20/2015 Inactive Lantus Solostar 100 unit/mL (3 mL) subcutaneous insulin pen RxNorm: 246681 25 Unit(s) SQ QHS 08/25/2015 08/28/2015 Inactive losartan 50 mg tablet RxNorm: 670234 1 Tablet(s) PO daily 08/22/2015 09/20/2015 Inactive levothyroxine 125 mcg tablet RxNorm: 812084 1 Tablet(s) PO daily 01/23/2015 04/22/2015 Inactive Plavix 75 mg tablet RxNorm: 694125 1 Tablet(s) PO daily 01/02/2015 09/22/2016 Inactive Aranesp 25 mcg/mL (in polysorbate) Injection RxNorm: 437923 Milliliter(s) Inj 30mcg q 2 weeks 01/02/2015 05/08/2016 Inactive [SAVINGS FOR NON-COVERED DRUGS -- BIN:[id number], PCN: [id number], Group: [id number], ID# [id number], Questions: . THIS IS NOT INSURANCE.] aspirin 81 mg chewable tablet RxNorm: 282010 1 Tablet(s) PO daily 01/02/2015 05/07/2016 Inactive Coreg 6.25 mg tablet RxNorm: 445312 1 Tablet(s) PO BID 01/02/2015 10/08/2015 Inactive Fish Oil 300 mg-1,000 mg capsule RxNorm: 316627 2 Capsule(s) PO daily No Start Date Active sodium bicarbonate 650 mg tablet RxNorm: 430358 1 Tablet(s) PO BID No Start Date Active Crestor 40 mg tablet RxNorm: 600879 1 Tablet(s) PO daily No Start Date Active Multiple Vitamins tablet RxNorm: 1 Tablet(s) PO daily No Start Date Active Vitamin D3 2,000 unit tablet RxNorm: 550554 1 Tablet(s) PO daily No Start Date Active ferrous sulfate 325 mg (65 mg iron) tablet RxNorm: 550269 1 Tablet(s) PO daily No Start Date Active Vitamin B12 Oral RxNorm: oral No Start Date Active Aranesp 40 mcg/mL (in polysorbate) Injection RxNorm: 271166 Inject 1 Milliliter(s) SQ Every 2 weeks No Start Date Active levothyroxine 100 mcg tablet RxNorm: 589066 1 Tablet(s) PO daily No Start Date Active calcium carbonate 200 mg calcium (500 mg) chewable tablet RxNorm: 717612 1-2 Tablet(s) PO daily No Start Date Active ferrous sulfate 325 mg (65 mg iron) tablet RxNorm: 971527 1 Tablet(s) PO daily No Start Date 05/07/2016 Inactive Aranesp 25 mcg/mL (in polysorbate) Injection RxNorm: 125954 injection No Start Date 01/01/2015 Inactive lovastatin 40 mg tablet RxNorm: 678855 1 Tablet(s) PO daily No Start Date 05/07/2016 Inactive Lipitor 40 mg tablet RxNorm: 457424 1 Tablet(s) PO QHS No Start Date 01/01/2015 Inactive amlodipine 2.5 mg tablet RxNorm: 128218 1 Tablet(s) PO BID No Start Date 12/16/2014 Inactive sodium bicarbonate 325 mg tablet RxNorm: 094408 1 Tablet(s) PO BID No Start Date 05/07/2016 Inactive levothyroxine 150 mcg tablet RxNorm: 718033 1 Tablet(s) PO daily No Start Date 01/22/2015 Inactive Lantus Solostar 100 unit/mL (3 mL) subcutaneous insulin pen RxNorm: 936596 20 Unit(s) SQ QHS No Start Date 08/24/2015 Inactive Lantus 100 unit/mL subcutaneous solution RxNorm: 435249 30 Unit(s) SQ QHS No Start Date 09/18/2016 Inactive Novolog 100 unit/mL subcutaneous solution RxNorm: 114434 10 Unit(s) SQ BID in the AM and at noon No Start Date 07/02/2017 Inactive aspirin 81 mg tablet RxNorm: 423415 1 Tablet(s) PO daily No Start Date 01/01/2015 Inactive Novolog Flexpen 100 unit/mL subcutaneous RxNorm: 2019252 8 Unit(s) SQ am and noon BID No Start Date 08/28/2015 Inactive glimepiride 4 mg tablet RxNorm: 547039 1 Tablet(s) PO daily No Start Date 10/08/2015 Inactive Vitamin D3 2,000 unit capsule RxNorm: 028745 1 Capsule(s) PO daily No Start Date [...] 401.9 07/20/2018 Type 2 diabetes mellitus with hyperglycemia ICD-10: E11.65 ICD-9: 250.02 10/30/2017 Hypothyroidism, unspecified ICD-10: E03.9 ICD-9: 244.9 10/30/2017 Actinic keratosis ICD-10: L57.0 ICD-9: 702.0 10/07/2016 Gastro-esophageal reflux disease without esophagitis ICD-10: K21.9 ICD-9: 530.81 07/08/2016 ESSENTIAL HYPERTENSION ICD-9: 401.9 04/07/2015 HYPERLIPIDEMIA ICD-9: 272.4 04/07/2015 DIABETES TYPE II ICD-9: 250.00 04/07/2015 Diabetes mellitus out of control ICD-9: [...] Code Result Date Urinalysis Ord28 U-Color Yellow 09/10/2018 Urinalysis Ord28 [...] (3rd IS) 1.93 uIU/mL 08/24/2018 Free T4 Qav246 FREE T4 1.05 ng/dL 08/24/2018 Urinalysis Ord28 [...] 32.0 % 08/17/2018 Cbc With Differential Ord2 Lymph% 30.3 % 08/17/2018 Cbc With Differential Ord2 MCV 94.1 fl 08/17/2018 Cbc With Differential Ord2 MCH 29.7 pg 08/17/2018 Cbc With Differential Ord2 [place]% 9.8 % 08/17/2018 Cbc With Differential Ord2 [...] 2.14 K/ul 08/17/2018 Cbc With Differential Ord2 [place] ABS# 0.7 K/ul 08/17/2018 Cbc With Differential Ord2 Eos ABS# 0.2 K/ul 08/17/2018 Cbc With Differential Ord2 Baso ABS# 0.0 K/ul 08/17/2018 Comp Metabolic Eml144 NA 143 mEq/L 04/14/2018 Comp Metabolic Elh830 K 4.6 mEq/L 04/14/2018 Comp Metabolic Utf004 CL 108 mEq/L 04/14/2018 Comp Metabolic Vve276 CO2 23.0 mEq/L 04/14/2018 Comp Metabolic Zoe357 ANION GAP 17 04/14/2018 Comp Metabolic Kjt403 GLUCOSE 54 mg/dL 04/14/2018 Comp Metabolic Rmv301 Creat 2.7 mg/dL 04/14/2018 Comp Metabolic Roe129 eGFR 18 ml/min/1.73m2 04/14/2018 Comp Metabolic Hwm269 BUN 45 mg/dL 04/14/2018 Comp Metabolic Nww549 B/C Ratio 16.9 Ratio 04/14/2018 Comp Metabolic Ffj468 CALCIUM 8.3 mg/dL 04/14/2018 Comp Metabolic Lta584 ALK PHOS 113 U/L 04/14/2018 Comp Metabolic Wqn276 AST(SGOT) 31 U/L 04/14/2018 Comp Metabolic Wba448 ALT(SGPT) 33 U/L 04/14/2018 Comp Metabolic Upr903 BILI T 0.5 mg/dL 04/14/2018 Comp Metabolic Pgb244 ALBUMIN 3.6 g/dL 04/14/2018 Comp Metabolic Jbe311 TPRO 6.5 g/dL 04/14/2018 Comp Metabolic Uwz396 GLOB 2.9 g/dL 04/14/2018 Comp Metabolic Teq838 A/G Ratio 1.2 Ratio 04/14/2018 Comp Metabolic Vkp141 Osmo 294 mOsmo 04/14/2018 Lipid Ord30 CHOL [...] U-VOL VOLUME SUFFICIENT (10mL) 01/21/2018 Urinalysis Ord28 U-Com Culture to follow 01/21/2018 Urinalysis Ord28 U-Yeast NEGATIVE 01/21/2018 %Hba1C Tlr786 % HbA1c 38796- 6 7.4 % 11/03/2017 %Hba1C Dfb386 Gluc Ave 166 mg/dL 11/03/2017 Urine Culture [...] 85.1 fl 09/20/2016 Cbc With Differential Ord2 [place]% 11.3 % 09/20/2016 Cbc With Differential Ord2 MCH 26.3 pg 09/20/2016 Cbc With Differential Ord2 Eos% [...] 1.08 K/ul 09/20/2016 Cbc With Differential Ord2 [place] ABS# 0.5 K/ul 09/20/2016 Cbc With Differential Ord2 Eos ABS# 0.2 K/ul 09/20/2016 Cbc With Differential Ord2 Baso ABS# 0.1 K/ul 09/20/2016 Comp Metabolic Gcp787 NA 141 mEq/L 09/20/2016 Comp Metabolic Wrz842 K 5.9 Result Verified By Repeat Analysis mEq/L 09/20/2016 Comp Metabolic Ypc176 CL 110 mEq/L 09/20/2016 Comp Metabolic Kbc725 CO2 23.0 mEq/L 09/20/2016 Comp Metabolic Iqf298 ANION GAP 14 09/20/2016 Comp Metabolic Iso471 GLUCOSE 101 mg/dL 09/20/2016 Comp Metabolic Dtp964 Creat 2.2 mg/dL 09/20/2016 Comp Metabolic Hpd451 eGFR 23 ml/min/1.73m2 09/20/2016 Comp Metabolic Ezy654 BUN 49 mg/dL 09/20/2016 Comp Metabolic Lyl244 B/C Ratio 22.0 Ratio 09/20/2016 Comp Metabolic Vmv429 CALCIUM 8.7 mg/dL 09/20/2016 Comp Metabolic Woa414 ALK PHOS 142 U/L 09/20/2016 Comp Metabolic Rfu738 AST(SGOT) 26 U/L 09/20/2016 Comp Metabolic Yox210 ALT(SGPT) 27 U/L 09/20/2016 Comp Metabolic Wgy602 BILI T 0.3 mg/dL 09/20/2016 Comp Metabolic Qvq377 ALBUMIN 4.0 g/dL 09/20/2016 Comp Metabolic Nja075 TPRO 7.6 g/dL 09/20/2016 Comp Metabolic Fgy277 GLOB 3.6 g/dL 09/20/2016 Comp Metabolic Akz863 A/G Ratio 1.1 Ratio 09/20/2016 Comp Metabolic Iik359 Osmo 294 mOsmo 09/20/2016 %Hba1C Cfj065 % HbA1c 45519- 6 6.7 % 09/20/2016 %Hba1C Wnw380 Gluc Ave 146 mg/dL 09/20/2016 Urinalysis Ord28 [...] 48 hours from collection if refrigerated) 05/31/2016 Free T4 Tiq253 FREE T4 0.72 ng/dL 03/28/2016 Comp Metabolic Vgn196 NA 133 mEq/L 03/28/2016 Comp Metabolic Zjk800 K 5.4 mEq/L 03/28/2016 Comp Metabolic Vdn292 CL 102 mEq/L 03/28/2016 Comp Metabolic Gbc445 CO2 22.0 mEq/L 03/28/2016 Comp Metabolic Fwx441 ANION GAP 14 03/28/2016 Comp Metabolic Gzh166 GLUCOSE 432 mg/dL 03/28/2016 Comp Metabolic Vwe003 Creat 1.9 mg/dL 03/28/2016 Comp Metabolic Vwo928 eGFR 27 ml/min/1.73m2 03/28/2016 Comp Metabolic Hbb958 BUN 38 mg/dL 03/28/2016 Comp Metabolic Fve487 B/C Ratio 19.6 Ratio 03/28/2016 Comp Metabolic Klg276 CALCIUM 8.9 mg/dL 03/28/2016 Comp Metabolic Trq331 ALK PHOS 84 U/L 03/28/2016 Comp Metabolic Cvv617 AST(SGOT) 9 U/L 03/28/2016 Comp Metabolic Mux772 ALT(SGPT) 6 U/L 03/28/2016 Comp Metabolic Lty170 BILI T 0.4 mg/dL 03/28/2016 Comp Metabolic Pbl533 ALBUMIN 3.6 g/dL 03/28/2016 Comp Metabolic Jzu530 TPRO 6.8 g/dL 03/28/2016 Comp Metabolic Kta019 GLOB 3.2 g/dL 03/28/2016 Comp Metabolic Ggn450 A/G Ratio 1.1 Ratio 03/28/2016 Comp Metabolic Exq014 Osmo 294 mOsmo 03/28/2016 Tsh Ord6 hTSH II 16.02 uIU/mL 03/28/2016 %Hba1C Npl329 % HbA1c 02662- 6 13.5 % 03/28/2016 %Hba1C Qjj523 Gluc Ave 341 mg/dL 03/28/2016 Random Urine Protein/Creatinine Ratio Wrr1659 U Prot 63.3 mg/dl 12/22/2015 Random Urine Protein/Creatinine Ratio Fpp0322 U CREAT 83.0 mg/dL 12/22/2015 Random Urine Protein/Creatinine Ratio Iqv2032 R MTP/Creat Ratio 0.76 12/22/2015 Microalbumin Ufd138 MicroAlb 25.4 mg/dL 12/22/2015 Comp Metabolic Rrg440 NA 132 mEq/L 12/22/2015 Comp Metabolic Rnf458 K 4.6 mEq/L 12/22/2015 Comp Metabolic Jer253 CL 97 mEq/L 12/22/2015 Comp Metabolic Low212 CO2 24.0 mEq/L 12/22/2015 Comp Metabolic Mdl327 ANION GAP 16 12/22/2015 Comp Metabolic Goe204 GLUCOSE 354 mg/dL 12/22/2015 Comp Metabolic Lso467 Creat 1.8 mg/dL 12/22/2015 Comp Metabolic Lev294 eGFR 29 ml/min/1.73m2 12/22/2015 Comp Metabolic Ycm573 BUN 47 mg/dL 12/22/2015 Comp Metabolic Ehs322 B/C Ratio 26.3 Ratio 12/22/2015 Comp Metabolic Ito293 CALCIUM 9.5 mg/dL 12/22/2015 Comp Metabolic Dfi865 ALK PHOS 100 U/L 12/22/2015 Comp Metabolic Rwd440 AST(SGOT) 15 U/L 12/22/2015 Comp Metabolic Uay042 ALT(SGPT) 11 U/L 12/22/2015 Comp Metabolic Sxx564 BILI T 0.4 mg/dL 12/22/2015 Comp Metabolic Fgc401 ALBUMIN 3.7 g/dL 12/22/2015 Comp Metabolic Bpo226 TPRO 7.1 g/dL 12/22/2015 Comp Metabolic Nfo319 GLOB 3.4 g/dL 12/22/2015 Comp Metabolic Pof975 A/G Ratio 1.1 Ratio 12/22/2015 Comp Metabolic Oes447 Osmo 291 mOsmo 12/22/2015 %Hba1C Ucw821 % HbA1c 34798- 6 11.9 % 12/21/2015 %Hba1C Byn525 Gluc Ave 295 mg/dL 12/21/2015 Review of [...] Procedure Codes Date DESTRUCT PREMALG LESION CPT-4: 03204 10/07/2016 Vital Signs Date Vital 08/26/2018 Blood Pressure 1: 146/52 Code: 8480-6 BMI: 28.0 Code: 15366-7 Heart Rate 1: 68 bpm Height: 5'3" SpO2: 98% Weight: 158 lbs 07/20/2018 Blood Pressure 1: 144/70 Code: 8480-6 BMI: 28.3 Code: 84869-3 Heart Rate 1: 82 bpm Height: 5'3" SpO2: 100% Weight: 160 lbs 03/05/2018 Blood Pressure 1: 144/66 Code: 8480-6 BMI: 28.7 Code: 54481-5 Heart Rate 1: 83 bpm Height: 5'3" SpO2: 99% Weight: 162 lbs 10/30/2017 Blood Pressure 1: 122/58 Code: 8480-6 BMI: 30.1 Code: 67755-2 Heart Rate 1: 78 bpm Height: 5'3" SpO2: 98% Weight: 170 lbs 07/03/2017 Blood Pressure 1: 148/78 Code: 8480-6 BMI: 29.8 Code: 53413-4 Heart Rate 1: 80 bpm Height: 5'3" SpO2: 99% Weight: 168 lbs 04/03/2017 Blood Pressure 1: 144/64 Code: 8480-6 BMI: 29.1 Code: 07591-2 Heart Rate 1: 78 bpm Height: 5'3" SpO2: 98% Weight: 164 lbs 12/31/2016 Blood Pressure 1: 138/70 Code: 8480-6 BMI: 30.3 Code: 57509-9 Heart Rate 1: 84 bpm Height: 5'3" SpO2: 90% Weight: 171 lbs 10/07/2016 Blood Pressure 1: 146/78 Code: 8480-6 BMI: 29.4 Code: 16422-9 Heart Rate 1: 73 bpm Height: 5'3" SpO2: 99% Weight: 166 lbs 09/19/2016 Blood Pressure 1: 168/76 Code: 8480-6 BMI: 29.2 Code: 41871-4 Heart Rate 1: 88 bpm Height: 5'3" SpO2: 98% Weight: 165 lbs 07/08/2016 Blood Pressure 1: 120/80 Code: 8480-6 BMI: 28.3 Code: 11368-0 Heart Rate 1: 80 bpm Height: 5'3" SpO2: 99% Weight: 160 lbs 05/08/2016 Blood Pressure 1: 138/70 Code: 8480-6 BMI: 26.9 Code: 97959-1 Heart Rate 1: 93 bpm Height: 5'3" SpO2: 98% Weight: 152 lbs 03/28/2016 Blood Pressure 1: 144/74 Code: 8480-6 BMI: 27.6 Code: 59098-8 Heart Rate 1: 85 bpm Height: 5'3" SpO2: 99% Weight: 156 lbs 01/22/2016 Blood Pressure 1: 140/82 Code: 8480-6 BMI: 28.9 Code: 72784-9 Heart Rate 1: 104 bpm Height: 5'3" SpO2: 94% Weight: 163 lbs 12/21/2015 Blood Pressure 1: 140/90 Code: 8480-6 BMI: 28.7 Code: 15807-4 Heart Rate 1: 99 bpm Height: 5'3" SpO2: 96% Weight: 162 lbs 11/06/2015 Blood Pressure 1: 110/60 Code: 8480-6 BMI: 29.8 Code: 18433-3 Heart Rate 1: 93 bpm Height: 5'3" SpO2: 98% Weight: 168 lbs 10/20/2015 Blood Pressure 1: 152/62 Code: 8480-6 BMI: 29.8 Code: 25837-8 Heart Rate 1: 86 bpm Height: 5'3" SpO2: 96% Weight: 168 lbs 10/09/2015 Blood Pressure 1: 152/60 Code: 8480-6 BMI: 30.2 Code: 51424-2 Heart Rate 1: 83 bpm Height: 5'3" SpO2: 98% Weight: 170 lbs 8 oz 09/21/2015 Blood Pressure 1: 160/74 Code: 8480-6 Blood Pressure 1: 168/72 Code: 8480-6 BMI: 29.8 Code: 38788-2 Heart Rate 1: 82 bpm Height: 5'3" SpO2: 99% Weight: 168 lbs 08/22/2015 Blood Pressure 1: 178/78 Code: 8480-6 Blood Pressure 1: 170/82 Code: 8480-6 BMI: 29.2 Code: 99759-9 Heart Rate 1: 85 bpm Height: 5'3" SpO2: 99% Weight: 165 lbs 04/07/2015 Blood Pressure 1: 140/68 Code: 8480-6 BMI: 29.9 Code: 69998-5 Heart Rate 1: 81 bpm Height: 5'3" SpO2: 99% Weight: 169 lbs 01/02/2015 Blood Pressure 1: 162/72 Code: 8480-6 BMI: 30.3 Code: 94360-0 Heart Rate 1: 88 bpm Height: 5'3" [...] at home, see scanned readings 10/07/2016 [facility] diabetes mellitus Pertinent Findings Denies dizziness [...] disturbance[ICD10: F02.81] [facility] CPT-4: 24124 08/26/2018 ([id number]) 61994 EST. PATIENT, LEVEL IV Diagnosis: Type 2 diabetes mellitus with other specified complication[ICD10: E11.69] Diagnosis: Essential (primary) hypertension[ICD10: I10] Diagnosis: Other allergic rhinitis[ICD10: J30.89] Diagnosis: Chronic kidney disease, stage 4 (severe)[ICD10: N18.4] [facility] CPT-4: 62135 07/20/2018 [id number]) 98213 EST. PATIENT, LEVEL III Diagnosis: Essential (primary) hypertension[ICD10: I10] Diagnosis: Type 2 diabetes mellitus with other specified complication[ICD10: E11.69] Cordelia Garg MD, [facility] CPT-4: 62605 03/05/2018 [id number]) 82606 EST. PATIENT, LEVEL IV Diagnosis: Type 2 diabetes mellitus with hyperglycemia[ICD10: E11.65] Diagnosis: Hypothyroidism, unspecified[ICD10: E03.9] Diagnosis: Essential (primary) hypertension[ICD10: I10] Diagnosis: Chronic kidney disease, stage 4 (severe)[ICD10: N18.4] Cordelia Garg MD, [facility] CPT-4: 84445 10/30/2017 ([id number]) 19054 EST. PATIENT, LEVEL IV Diagnosis: Hypothyroidism, unspecified[ICD10: E03.9] Diagnosis: Type 2 diabetes mellitus with hyperglycemia[ICD10: E11.65] Diagnosis: Essential (primary) hypertension[ICD10: I10] Diagnosis: Chronic kidney disease, stage 4 (severe)[ICD10: N18.4] Cordelia Garg MD, [facility] CPT-4: 32969 07/03/2017 ([id number]) 57303 EST. PATIENT, LEVEL III Diagnosis: Type 2 diabetes mellitus with hyperglycemia[ICD10: E11.65] Diagnosis: Essential (primary) hypertension[ICD10: I10] Diagnosis: Chronic kidney disease, stage 4 (severe)[ICD10: N18.4] Cordelia Garg MD, [facility] CPT-4: 64195 04/03/2017 ([id number]) 29019 EST. PATIENT, LEVEL III Diagnosis: Type 2 diabetes mellitus with hyperglycemia[ICD10: E11.65] Cordelia Garg MD, [facility] CPT-4: 52292 12/31/2016 ([id number]) 22616 EST. PATIENT, LEVEL II Diagnosis: Type 2 diabetes mellitus with hyperglycemia[ICD10: E11.65] Diagnosis: Essential (primary) hypertension[ICD10: I10] Diagnosis: Actinic keratosis[ICD10: L57.0] Cordelia Garg MD, [facility] CPT-4: 09630 10/07/2016 ([id number]) 39989 EST. PATIENT, LEVEL IV Diagnosis: Type 2 diabetes mellitus with hyperglycemia[ICD10: E11.65] Diagnosis: Essential (primary) hypertension[ICD10: I10] Cordelia Garg MD, [facility] CPT-4: 86611 09/19/2016 ([id number]) 95404 EST. PATIENT, LEVEL III Diagnosis: Type 2 diabetes mellitus with hyperglycemia[ICD10: E11.65] Diagnosis: Gastro-esophageal reflux disease without esophagitis[ICD10: K21.9] Cordelia Garg MD, [facility] CPT-4: 21827 07/08/2016 ([id number]) 10945 EST. PATIENT, LEVEL III Diagnosis: Type 2 diabetes mellitus with hyperglycemia[ICD10: E11.65] Riana Garg MD, [facility] CPT-4: 48754 05/08/2016 ([id number]) 72958 EST. PATIENT, LEVEL IV Diagnosis: Essential (primary) hypertension[ICD10: I10] Diagnosis: Type 2 diabetes mellitus with hyperglycemia[ICD10: E11.65] Diagnosis: Hypothyroidism, unspecified[ICD10: E03.9] Diagnosis: Chronic kidney disease, stage 4 (severe)[ICD10: N18.4] Cordelia Garg MD, [facility] CPT-4: 53024 03/28/2016 ([id number]) 73006 EST. PATIENT, LEVEL III Diagnosis: Type 2 diabetes mellitus with hyperglycemia[ICD10: E11.65] Diagnosis: Essential (primary) hypertension[ICD10: I10] Cordelia Garg MD, [facility] CPT-4: 53827 01/22/2016 ([id number]) 62769 EST. PATIENT, LEVEL IV Diagnosis: Type 2 diabetes mellitus with hyperglycemia[ICD10: E11.65] Diagnosis: Hypothyroidism, unspecified[ICD10: E03.9] Diagnosis: Essential (primary) hypertension[ICD10: I10] Diagnosis: Chronic kidney disease, stage 4 (severe)[ICD10: N18.4] Riana Garg MD, [facility] CPT-4: 54885 12/21/2015 ([id number]) 13685 EST. PATIENT, LEVEL III Diagnosis: Type 2 diabetes mellitus with hyperglycemia[ICD10: E11.65] Riana Garg MD, [facility] CPT-4: 05153 11/06/2015 ([id number]) 65940 EST. PATIENT, LEVEL IV Diagnosis: Type 2 diabetes mellitus with hyperglycemia[ICD10: E11.65] Diagnosis: Essential (primary) hypertension[ICD10: I10] Cordelia Garg MD, [facility] CPT-4: 26976 10/20/2015 ([id number]) 44971 EST. PATIENT, LEVEL IV Diagnosis: Type 2 diabetes mellitus with hyperglycemia[ICD10: E11.65] Diagnosis: Essential (primary) hypertension[ICD10: I10] Diagnosis: Actinic keratosis[ICD10: L57.0] Riana Garg MD [facility] CPT-4: 06038 10/09/2015 ([id number]) 67919 EST. PATIENT, LEVEL IV Diagnosis: Type 2 diabetes mellitus with hyperglycemia[ICD10: E11.65] Diagnosis: Essential (primary) hypertension[ICD10: I10] Riana Garg MD [facility] CPT-4: 57373 09/21/2015 ([id number]) 47804 EST. PATIENT, LEVEL IV Diagnosis: Type 2 diabetes mellitus with hyperglycemia[ICD10: E11.65] Diagnosis: Hypothyroidism, unspecified[ICD10: E03.9] Diagnosis: Essential (primary) hypertension[ICD10: I10] Riana Garg MD [facility] CPT-4: 46011 08/22/2015 ([id number]) 06709 EST. PATIENT, LEVEL IV Diagnosis: ESSENTIAL HYPERTENSION[ICD9: 401.9] Diagnosis: HYPERLIPIDEMIA[ICD9: 272.4] Diagnosis: DIABETES TYPE II[ICD9: 250.00] Riana Garg MD [facility] CPT-4: 94404 04/07/2015 ([id number]) OFFICE/OUTPATIENT VISIT NEW Diagnosis: ESSENTIAL HYPERTENSION[ICD9: 401.9] Diagnosis: Diabetes mellitus out of control[ICD9: 250.02] Diagnosis: HYPOTHYROIDISM[ICD9: 244.9] Diagnosis: HYPERLIPIDEMIA[ICD9: 272.4] Riana Garg MD, [facility] CPT-4: 58351 01/02/2015 Plan of Care Planned Activity Notes [...] effectiveness. 08/26/2018 Appointment: Cary Rivera WPtel: [phone] [phone] (30 min) Complex 08/26/2018 Patient Education: Patient [...] starting to become less controlled. CKD-patient sees trial manager-has decided not to do dialysis right now Allergies-rx for flonase 07/20/2018 [phone] (15 min) Moderate 07/20/2018 Patient Education: Patient [...] controlled. 03/05/2018 App[facility]ment[phone] [phone] (30 min) Complex 03/05/2018 Patient Education: Patient [...] voltaren gel 10/30/2017 Appointment: Cordelia Kumar WPtel: [address] [place], [place] [phone] (30 min) [facility] 10/30/2017 Patient Education: Patient Medication Summary Completed [...] starting to become less controlled. Left thumb [id number]-pmaflhoqb voltaren gel if symptoms persist 07/03/2017 Appointment: Cordelia Kumar WPtel: [phone] [phone] (30 min) Complex 07/03/2017 Patient Education: Patient [...] to become less controlled. Chronic renal disease-sees trial manager and also bench molder for management of anemia 04/03/2017 Visit Plan: [...] to become less controlled. Chronic renal disease-sees trial manager and also bench molder for management of anemia 04/03/2017 App[facility]ment: [phone] [place] (30 min) Complex 04/03/2017 Patient Education: [...] controlled. 12/31/2016 Appointment: [phone] [place] (30 min) Complex 12/31/2016 Patient Education: [...] acute concerns. 10/07/2016 Appointment: Cordelia Kumar WPtel: [facility] [place], [place] [id number] (30 min) Complex 10/07/2016 Appointment: Cordelia Kumar WPtel: [address] [place], [place] [id number] [place] [address] (30 min) Complex 10/07/2016 Patient Education: Patient [...] at home. 09/19/2016 Appointment: Cordelia Kumar WPtel: [address] [place], [place] [id number] [place] [address] (30 min) Complex 09/19/2016 Patient Education: Patient [...] Summary Completed 07/08/2016 Appointment: Cordelia Kumar WPtel: [phone] [place] (30 min) Complex 06/20/2016 Visit Plan: Diabetes [...] stage 4- patient to make appt with [facility] Addendum: Patient noncompliant with blood sugar logs-she has been instructed to test QID but only tests daily- she did not bring her log for review today.- Patient has since moved to [facility] since this office visit. They are [...] stage 4- patient to make appt with [facility] 03/28/2016 Visit Plan: Hypertension - [...] stage 4- patient to make appt with [facility] Addendum: Patient noncompliant with blood sugar logs-she has been instructed to test QID but only tests daily- she did not bring her log for review today.- Patient has since moved to [facility] and they are checking her blood [...] group Addendum: Patient has since moved to [facility] since this office visit. They are checking her blood sugars AC and HS and she is on a sliding scale to control her d iabetes. 03/28/2016 Patient Education: Patient Medication Summary Completed 03/28/2016 [id number] (30 min) Complex 03/26/2016 App[facility]ment: [phone] (30 min) Complex 02/20/2016 Visit Plan: Diabetes [...] at home. 01/22/2016 Appointment: Cordelia Kumar [facility]Ptel[id number] (30 min) Complex 01/22/2016 Patient Education: Patient [...] pt has been seeing a group in [facility] - but would like to be seen in [place] to avoid excessive travel. 12/21/2015 Visit Plan: [...] Completed 12/21/2015 [id number] (15 min) Moderate 12/18/2015 Visit Plan: [...] me dications. 04/07/2015 App[facility]ment: [facility] Follow up 04/07/2015 Patient Education: Patient [...] control. 01/02/2015 Appointment: [facility] [place] ([place] New Patient 01/02/2015 Patient [...] will send a referral today to the [facility] - they are located in the [facility] at [address] [place] [address] - phone number is [phone] . Hypertension - well controlled - continue [...] pt has been seeing a group in [facility] - but would like to be seen in [place] to avoid excessive travel. Next time you have an appt - please bring in your blood glucose log sheet Dr. Garg will send a referral today to the [facility] - they are located in the [facility] at [address] [place] [address] - phone number is [phone] . Hypertension - well controlled - continue [...] disease stage 4-patient to make appt with [facility] Addendum: Patient noncompliant with blood sugar logs-she has been instructed to test QID but only tests daily-she did not bring her log for review today.- Patient has since moved to [facility] since this office visit. They are [...] disease stage 4-patient to make appt with [facility] . Hypertension - well controlled [...] disease stage 4-patient to make appt with [facility] Addendum: Patient noncompliant with blood sugar logs-she has been instructed to test QID but only tests daily-she did not bring her log for review today.- Patient has since moved to [facility] and they are checking her blood [...] disease stage 4-patient to make appt with [facility] Addendum: Patient has since moved to [facility] since this office visit. They are [...] readings are starting to become less controlled. DO NOT TAKE NOVOLOG IF YOU DO [...] sent with patient to be filled by [facility]. . Diabetes Mellitus - controlled - [...] starting to become less controlled. CKD-patient sees trial manager-has decided not to do dialysis right [...] to become less controlled. Chronic renal disease-sees trial manager and also bench molder for management of anemia . Hypertension - [...] to become less controlled. Chronic renal disease-sees trial manager and also bench molder for management of anemia stop the GLIMEPIRIDE make sure that you [...] blood pressure readings at home. will have [facility] fax over blood sugar log. [...] starting to become less controlled. Left thumb [id number] voltaren gel if symptoms persist . Diabetes Mellitus - controlled - per [...]
--- OUTSIDE RECORDS SUMMARY | 2019-02-16 19:07 | XMS REPORT | CCD ---
Author Author [facility] Organization [facility] Address [address] [place] [address] Phone Care Team Providers Care Animal Assistant Name Role Phone PP Unavailable CCM Unavailable Summary Purpose Interface Exchange Insurance Providers Payer name Policy type / Coverage type Covered green party ID Effective Begin Date Effective End Date WPS Medicare Part B [id number] 2015 Unknown [facility] Assistance [id number] 2015 Unknown Family history Mother Diagnosis Age At Onset Anemia Unknown Stroke Unknown Arthritis Unknown Hypertension Unknown Father Diagnosis Age At Onset Cancer Unknown Social History Social History Element Codes Description Effective Dates Marital status Unknown 01/02/2015 Number of children Unknown 3 01/02/2015 Employment Unknown Retired 01/02/[address]: 2073170 Quit over 10 years ago 25 years ago 01/02/[address]: 630778242 Never drinks alcohol 01/02/2015 Allergies, Adverse Reactions, Alerts Substance Reaction Codes Entered Date Inactivated Date Status * NO KNOWN FOOD ALLERGIES Unknown 01/02/2015 No Inactive Date Active SULFA(SULFONAMIDE ANTIBIOTICS) Unknown 01/02/2015 No Inactive Date Active Past Medical History Illness Codes Condition Status Onset Date Resolved Date Dementia in other diseases classified elsewhere with behavioral disturbance ICD-9: 294.8 ICD-10: F02.81 Active 08/26/2018 Unknown Essential (primary) hypertension ICD-9: 401.9 ICD-10: I10 Active 01/01/2015 Unknown Dysuria ICD-9: 788.1 ICD-10: R30.0 Active 12/26/2015 Unknown Chronic kidney disease, stage 4 (severe) [...] Problems Condition Codes Effective Dates Condition Status Dementia in other diseases classified elsewhere with behavioral disturbance ICD-9: 294.8 ICD-10: F02.81 08/26/2018 Active Essential (primary) hypertension ICD-9: 401.9 ICD-10: I10 01/01/2015 Active Dysuria ICD-9: 788.1 ICD-10: R30.0 12/26/2015 Active Chronic kidney disease, stage 4 (severe) [...] Fill Instructions risperidone 0.25 mg tablet RxNorm: 196519 1 Tablet(s) PO BID 09/09/2018 01/06/2019 Active Risperdal 0.25 mg tablet RxNorm: 755284 1 Tablet(s) PO BID 09/09/2018 10/08/2018 Active Voltaren 1 % topical gel RxNorm: 728259 2 Gram(s) TOP QID 10/30/2017 No Stop Date Active Novolog 100 unit/mL subcutaneous solution RxNorm: 676297 5-10 Unit(s) SQ QID per sliding scale 07/03/2017 No Stop Date Active Novolog 100 unit/mL subcutaneous solution RxNorm: 470568 8 Unit(s) SQ at noon 09/27/2016 No Stop Date Active Novolog Flexpen 100 unit/mL subcutaneous RxNorm: 8205947 8 Unit(s) SQ at noon 09/27/2016 09/27/2016 Inactive Novolog Flexpen 100 unit/mL subcutaneous RxNorm: 8030518 8 Unit(s) SQ at noon 09/27/2016 09/26/2016 Inactive Novolog 100 unit/mL subcutaneous solution RxNorm: 462544 9 Unit(s) SQ at noon 09/27/2016 09/26/2016 Inactive Lantus 100 unit/mL subcutaneous solution RxNorm: 639313 25 Unit(s) SQ QHS 09/19/2016 No Stop Date Active Coreg 6.25 mg tablet RxNorm: 653349 2 Tablet(s) PO BID 07/08/2016 09/30/2017 Inactive Lantus Solostar 100 unit/mL (3 mL) subcutaneous insulin pen RxNorm: 223259 25 Unit(s) SQ QAM and 50 Units at bedtime 04/05/2016 05/07/2016 Inactive Synthroid 150 mcg tablet RxNorm: 567379 1 Tablet(s) PO daily 04/05/2016 07/02/2017 Inactive Lantus Solostar 100 unit/mL (3 mL) subcutaneous insulin pen RxNorm: 243751 20 Unit(s) SQ QAM and 45 Units at bedtime 01/03/2016 01/07/2016 Inactive Synthroid 125 mcg tablet RxNorm: 814321 1 Tablet(s) PO daily 12/20/2015 12/19/2015 Inactive Synthroid 125 mcg tablet RxNorm: 287957 1 Tablet(s) PO daily 12/20/2015 04/04/2016 Inactive Novolog Flexpen 100 unit/mL subcutaneous RxNorm: 7735604 15 Unit(s) SQ am and 15 units @ noon BID 11/15/2015 05/07/2016 Inactive Lantus Solostar 100 unit/mL (3 mL) subcutaneous insulin pen RxNorm: 745562 10 Unit(s) SQ QAM and 40 Units at bedtime 11/15/2015 11/19/2015 Inactive increased from 25u Coreg 6.25 mg tablet RxNorm: 970122 1.5 Tablet(s) PO BID 10/09/2015 07/07/2016 Inactive Lantus Solostar 100 unit/mL (3 mL) subcutaneous insulin pen RxNorm: 004377 35 Unit(s) SQ QHS 09/26/2015 11/14/2015 Inactive increased from 25u Novolog Flexpen 100 unit/mL subcutaneous RxNorm: 7874742 12 Unit(s) SQ am and 12 units @ noon BID 09/25/2015 11/14/2015 Inactive losartan 100 mg tablet RxNorm: 178234 1 Tablet(s) PO daily 09/21/2015 09/14/2016 Inactive Lantus Solostar 100 unit/mL (3 mL) subcutaneous insulin pen RxNorm: 457823 35 Unit(s) SQ QHS 09/21/2015 09/25/2015 Inactive Novolog Flexpen 100 unit/mL subcutaneous RxNorm: 3752670 12 Unit(s) SQ am and 12 units @ noon BID - dr to increase based on glucose readings [id number] 10.4 09/21/2015 09/24/2015 Inactive Lantus Solostar 100 unit/mL (3 mL) subcutaneous insulin pen RxNorm: 541245 25 Unit(s) SQ QHS 08/29/2015 09/20/2015 Inactive Novolog Flexpen 100 unit/mL subcutaneous RxNorm: 8715312 8 Unit(s) SQ am and noon BID 08/29/2015 09/20/2015 Inactive Lantus Solostar 100 unit/mL (3 mL) subcutaneous insulin pen RxNorm: 295767 25 Unit(s) SQ QHS 08/25/2015 08/28/2015 Inactive losartan 50 mg tablet RxNorm: 287217 1 Tablet(s) PO daily 08/22/2015 09/20/2015 Inactive levothyroxine 125 mcg tablet RxNorm: 826261 1 Tablet(s) PO daily 01/23/2015 04/22/2015 Inactive Plavix 75 mg tablet RxNorm: 050916 1 Tablet(s) PO daily 01/02/2015 09/22/2016 Inactive Aranesp 25 mcg/mL (in polysorbate) Injection RxNorm: 446734 Milliliter(s) Inj 30mcg q 2 weeks 01/02/2015 05/08/2016 Inactive [SAVINGS FOR NON-COVERED DRUGS -- BIN:[id number], PCN: [id number], Group: [id number], ID# [id number], Questions: . THIS IS NOT INSURANCE.] aspirin 81 mg chewable tablet RxNorm: 777049 1 Tablet(s) PO daily 01/02/2015 05/07/2016 Inactive Coreg 6.25 mg tablet RxNorm: 681908 1 Tablet(s) PO BID 01/02/2015 10/08/2015 Inactive Fish Oil 300 mg-1,000 mg capsule RxNorm: 654417 2 Capsule(s) PO daily No Start Date Active sodium bicarbonate 650 mg tablet RxNorm: 809767 1 Tablet(s) PO BID No Start Date Active Crestor 40 mg tablet RxNorm: 273391 1 Tablet(s) PO daily No Start Date Active Multiple Vitamins tablet RxNorm: 1 Tablet(s) PO daily No Start Date Active Vitamin D3 2,000 unit tablet RxNorm: 814723 1 Tablet(s) PO daily No Start Date Active ferrous sulfate 325 mg (65 mg iron) tablet RxNorm: 433564 1 Tablet(s) PO daily No Start Date Active Vitamin B12 Oral RxNorm: oral No Start Date Active Aranesp 40 mcg/mL (in polysorbate) Injection RxNorm: 382302 Inject 1 Milliliter(s) SQ Every 2 weeks No Start Date Active levothyroxine 100 mcg tablet RxNorm: 604239 1 Tablet(s) PO daily No Start Date Active calcium carbonate 200 mg calcium (500 mg) chewable tablet RxNorm: 539078 1-2 Tablet(s) PO daily No Start Date Active ferrous sulfate 325 mg (65 mg iron) tablet RxNorm: 757653 1 Tablet(s) PO daily No Start Date 05/07/2016 Inactive Aranesp 25 mcg/mL (in polysorbate) Injection RxNorm: 773094 injection No Start Date 01/01/2015 Inactive lovastatin 40 mg tablet RxNorm: 416316 1 Tablet(s) PO daily No Start Date 05/07/2016 Inactive Lipitor 40 mg tablet RxNorm: 043163 1 Tablet(s) PO QHS No Start Date 01/01/2015 Inactive amlodipine 2.5 mg tablet RxNorm: 193574 1 Tablet(s) PO BID No Start Date 12/16/2014 Inactive sodium bicarbonate 325 mg tablet RxNorm: 674141 1 Tablet(s) PO BID No Start Date 05/07/2016 Inactive levothyroxine 150 mcg tablet RxNorm: 743326 1 Tablet(s) PO daily No Start Date 01/22/2015 Inactive Lantus Solostar 100 unit/mL (3 mL) subcutaneous insulin pen RxNorm: 241173 20 Unit(s) SQ QHS No Start Date 08/24/2015 Inactive Lantus 100 unit/mL subcutaneous solution RxNorm: 379360 30 Unit(s) SQ QHS No Start Date 09/18/2016 Inactive Novolog 100 unit/mL subcutaneous solution RxNorm: 940103 10 Unit(s) SQ BID in the AM and at noon No Start Date 07/02/2017 Inactive aspirin 81 mg tablet RxNorm: 205403 1 Tablet(s) PO daily No Start Date 01/01/2015 Inactive Novolog Flexpen 100 unit/mL subcutaneous RxNorm: 5125120 8 Unit(s) SQ am and noon BID No Start Date 08/28/2015 Inactive glimepiride 4 mg tablet RxNorm: 042327 1 Tablet(s) PO daily No Start Date 10/08/2015 Inactive Vitamin D3 2,000 unit capsule RxNorm: 137367 1 Capsule(s) PO daily No Start Date 05/08/2016 Inactive metoprolol tartrate 12.5 Tablet RxNorm: 1 Tablet(s) PO BID No Start Date 12/16/2014 Inactive Medication Administered No Medication Administered data Immunizations Vaccine Codes Date Status Influenza CVX: 141 06/06/2017 completed Assessments Condition Codes Effective Dates Dementia in other diseases classified elsewhere with behavioral disturbance ICD-10: F02.81 ICD-9: 294.8 08/26/2018 Dysuria ICD-10: R30.0 ICD-9: 788.1 08/25/2018 Other allergic rhinitis ICD-10: J30.89 ICD-9: 477.8 [...] collection if refrigerated) 09/10/2018 Urine Culture Ucult Complete NO Growth Day 2 08/27/2018 Urine Culture Ucult Preliminary NO Growth Day 1 08/27/2018 Tsh Ord6 TSH (3rd IS) 1.93 uIU/mL 08/24/2018 Free T4 Ppj172 FREE T4 1.05 ng/dL 08/24/2018 Urinalysis Ord28 [...] 94.1 fl 08/17/2018 Cbc With Differential Ord2 Ray% 9.8 % 08/17/2018 Cbc With Differential Ord2 [...] 2.14 K/ul 08/17/2018 Cbc With Differential Ord2 Ray ABS# 0.7 K/ul 08/17/2018 Cbc With Differential Ord2 Eos ABS# 0.2 K/ul 08/17/2018 Cbc With Differential Ord2 Baso ABS# 0.0 K/ul 08/17/2018 Comp Metabolic Efr142 NA 143 mEq/L 04/14/2018 Comp Metabolic Qzx528 K 4.6 mEq/L 04/14/2018 Comp Metabolic Ube526 CL 108 mEq/L 04/14/2018 Comp Metabolic Pjy820 CO2 23.0 mEq/L 04/14/2018 Comp Metabolic Utx240 ANION GAP 17 04/14/2018 Comp Metabolic Gsv650 GLUCOSE 54 mg/dL 04/14/2018 Comp Metabolic Rms858 Creat 2.7 mg/dL 04/14/2018 Comp Metabolic Mob165 eGFR 18 ml/min/1.73m2 04/14/2018 Comp Metabolic Lsa811 BUN 45 mg/dL 04/14/2018 Comp Metabolic Hnw269 B/C Ratio 16.9 Ratio 04/14/2018 Comp Metabolic Sse982 CALCIUM 8.3 mg/dL 04/14/2018 Comp Metabolic Ogw896 ALK PHOS 113 U/L 04/14/2018 Comp Metabolic Pqt516 AST(SGOT) 31 U/L 04/14/2018 Comp Metabolic Xgo734 ALT(SGPT) 33 U/L 04/14/2018 Comp Metabolic Qwv988 BILI T 0.5 mg/dL 04/14/2018 Comp Metabolic Hgu144 ALBUMIN 3.6 g/dL 04/14/2018 Comp Metabolic Hnk695 TPRO 6.5 g/dL 04/14/2018 Comp Metabolic Yup739 GLOB 2.9 g/dL 04/14/2018 Comp Metabolic Tbc990 A/G Ratio 1.2 Ratio 04/14/2018 Comp Metabolic Psc130 Osmo 294 mOsmo 04/14/2018 Lipid Ord30 CHOL [...] Ord28 U-Com Culture to follow 01/21/2018 %Hba1C Dfg664 % HbA1c 90581- 6 7.4 % 11/03/2017 %Hba1C Wfi285 Gluc Ave 166 mg/dL 11/03/2017 Urine Culture [...] 26.3 pg 09/20/2016 Cbc With Differential Ord2 Ray% 11.3 % 09/20/2016 Cbc With Differential Ord2 [...] 1.08 K/ul 09/20/2016 Cbc With Differential Ord2 Ray ABS# 0.5 K/ul 09/20/2016 Cbc With Differential Ord2 Eos ABS# 0.2 K/ul 09/20/2016 Cbc With Differential Ord2 Baso ABS# 0.1 K/ul 09/20/2016 Comp Metabolic Wou249 NA 141 mEq/L 09/20/2016 Comp Metabolic Uat704 K 5.9 Result Verified By Repeat Analysis mEq/L 09/20/2016 Comp Metabolic Zcj219 CL 110 mEq/L 09/20/2016 Comp Metabolic Bve091 CO2 23.0 mEq/L 09/20/2016 Comp Metabolic Ncr203 ANION GAP 14 09/20/2016 Comp Metabolic Tfb807 GLUCOSE 101 mg/dL 09/20/2016 Comp Metabolic Gjr718 Creat 2.2 mg/dL 09/20/2016 Comp Metabolic Htv308 eGFR 23 ml/min/1.73m2 09/20/2016 Comp Metabolic Yyr778 BUN 49 mg/dL 09/20/2016 Comp Metabolic Fuy622 B/C Ratio 22.0 Ratio 09/20/2016 Comp Metabolic Rph216 CALCIUM 8.7 mg/dL 09/20/2016 Comp Metabolic Lqw702 ALK PHOS 142 U/L 09/20/2016 Comp Metabolic Tgt121 AST(SGOT) 26 U/L 09/20/2016 Comp Metabolic Ouy088 ALT(SGPT) 27 U/L 09/20/2016 Comp Metabolic Tal097 BILI T 0.3 mg/dL 09/20/2016 Comp Metabolic Jtu115 ALBUMIN 4.0 g/dL 09/20/2016 Comp Metabolic Zrs775 TPRO 7.6 g/dL 09/20/2016 Comp Metabolic Unj338 GLOB 3.6 g/dL 09/20/2016 Comp Metabolic Rlo564 A/G Ratio 1.1 Ratio 09/20/2016 Comp Metabolic Vpc228 Osmo 294 mOsmo 09/20/2016 %Hba1C Osq160 % HbA1c 71453- 6 6.7 % 09/20/2016 %Hba1C Ywx018 Gluc Ave 146 mg/dL 09/20/2016 Urinalysis Ord28 [...] 05/31/2016 Urinalysis Ord28 U-Yeast NEGATIVE 05/31/2016 %Hba1C Vgg357 % HbA1c 98641- 6 13.5 % 03/28/2016 %Hba1C Onz639 Gluc Ave 341 mg/dL 03/28/2016 Tsh Ord6 hTSH II 16.02 uIU/mL 03/28/2016 Comp Metabolic Apu245 NA 133 mEq/L 03/28/2016 Comp Metabolic Vwz372 K 5.4 mEq/L 03/28/2016 Comp Metabolic Qbf964 CL 102 mEq/L 03/28/2016 Comp Metabolic Img709 CO2 22.0 mEq/L 03/28/2016 Comp Metabolic Wpl104 ANION GAP 14 03/28/2016 Comp Metabolic Orp260 GLUCOSE 432 mg/dL 03/28/2016 Comp Metabolic Jpc695 Creat 1.9 mg/dL 03/28/2016 Comp Metabolic Yum670 eGFR 27 ml/min/1.73m2 03/28/2016 Comp Metabolic Kmt971 BUN 38 mg/dL 03/28/2016 Comp Metabolic Gln683 B/C Ratio 19.6 Ratio 03/28/2016 Comp Metabolic Eyu016 CALCIUM 8.9 mg/dL 03/28/2016 Comp Metabolic Jly564 ALK PHOS 84 U/L 03/28/2016 Comp Metabolic Qfi600 AST(SGOT) 9 U/L 03/28/2016 Comp Metabolic Aqk751 ALT(SGPT) 6 U/L 03/28/2016 Comp Metabolic Fov225 BILI T 0.4 mg/dL 03/28/2016 Comp Metabolic Tsp312 ALBUMIN 3.6 g/dL 03/28/2016 Comp Metabolic Hmf937 TPRO 6.8 g/dL 03/28/2016 Comp Metabolic Wiz902 GLOB 3.2 g/dL 03/28/2016 Comp Metabolic Ydm901 A/G Ratio 1.1 Ratio 03/28/2016 Comp Metabolic Zmc268 Osmo 294 mOsmo 03/28/2016 Free T4 Ifi214 FREE T4 0.72 ng/dL 03/28/2016 Comp Metabolic Raf300 NA 132 mEq/L 12/22/2015 Comp Metabolic Tec762 K 4.6 mEq/L 12/22/2015 Comp Metabolic Hft886 CL 97 mEq/L 12/22/2015 Comp Metabolic Fdy846 CO2 24.0 mEq/L 12/22/2015 Comp Metabolic Hrc606 ANION GAP 16 12/22/2015 Comp Metabolic Vqy997 GLUCOSE 354 mg/dL 12/22/2015 Comp Metabolic Acs140 Creat 1.8 mg/dL 12/22/2015 Comp Metabolic Lri212 eGFR 29 ml/min/1.73m2 12/22/2015 Comp Metabolic Iay321 BUN 47 mg/dL 12/22/2015 Comp Metabolic Bvj970 B/C Ratio 26.3 Ratio 12/22/2015 Comp Metabolic Nnj546 CALCIUM 9.5 mg/dL 12/22/2015 Comp Metabolic Rxe406 ALK PHOS 100 U/L 12/22/2015 Comp Metabolic Pkq549 AST(SGOT) 15 U/L 12/22/2015 Comp Metabolic Yxb417 ALT(SGPT) 11 U/L 12/22/2015 Comp Metabolic Gwl725 BILI T 0.4 mg/dL 12/22/2015 Comp Metabolic Sll930 ALBUMIN 3.7 g/dL 12/22/2015 Comp Metabolic Ilp992 TPRO 7.1 g/dL 12/22/2015 Comp Metabolic Qcm150 GLOB 3.4 g/dL 12/22/2015 Comp Metabolic Aap884 A/G Ratio 1.1 Ratio 12/22/2015 Comp Metabolic Drf873 Osmo 291 mOsmo 12/22/2015 Microalbumin Obv265 MicroAlb 25.4 mg/dL 12/22/2015 Random Urine Protein/Creatinine Ratio Bud4062 U Prot 63.3 mg/dl 12/22/2015 Random Urine Protein/Creatinine Ratio Bdc9396 U CREAT 83.0 mg/dL 12/22/2015 Random Urine Protein/Creatinine Ratio Wwp2769 R MTP/Creat Ratio 0.76 12/22/2015 %Hba1C Ibd357 % HbA1c 77350- 6 11.9 % 12/21/2015 %Hba1C Ewe179 Gluc Ave 295 mg/dL 12/21/2015 Review of [...] Procedure Codes Date DESTRUCT PREMALG LESION CPT-4: 40395 10/07/2016 Vital Signs Date Vital 08/26/2018 Blood Pressure 1: 146/52 Code: 8480-6 BMI: 28.0 Code: 78254-3 Heart Rate 1: 68 bpm Height: 5'3" SpO2: 98% Weight: 158 lbs 07/20/2018 Blood Pressure 1: 144/70 Code: 8480-6 BMI: 28.3 Code: 88425-6 Heart Rate 1: 82 bpm Height: 5'3" SpO2: 100% Weight: 160 lbs 03/05/2018 Blood Pressure 1: 144/66 Code: 8480-6 BMI: 28.7 Code: 44866-5 Heart Rate 1: 83 bpm Height: 5'3" SpO2: 99% Weight: 162 lbs 10/30/2017 Blood Pressure 1: 122/58 Code: 8480-6 BMI: 30.1 Code: 18619-2 Heart Rate 1: 78 bpm Height: 5'3" SpO2: 98% Weight: 170 lbs 07/03/2017 Blood Pressure 1: 148/78 Code: 8480-6 BMI: 29.8 Code: 76528-6 Heart Rate 1: 80 bpm Height: 5'3" SpO2: 99% Weight: 168 lbs 04/03/2017 Blood Pressure 1: 144/64 Code: 8480-6 BMI: 29.1 Code: 91388-2 Heart Rate 1: 78 bpm Height: 5'3" SpO2: 98% Weight: 164 lbs 12/31/2016 Blood Pressure 1: 138/70 Code: 8480-6 BMI: 30.3 Code: 31461-3 Heart Rate 1: 84 bpm Height: 5'3" SpO2: 90% Weight: 171 lbs 10/07/2016 Blood Pressure 1: 146/78 Code: 8480-6 BMI: 29.4 Code: 37554-5 Heart Rate 1: 73 bpm Height: 5'3" SpO2: 99% Weight: 166 lbs 09/19/2016 Blood Pressure 1: 168/76 Code: 8480-6 BMI: 29.2 Code: 73988-6 Heart Rate 1: 88 bpm Height: 5'3" SpO2: 98% Weight: 165 lbs 07/08/2016 Blood Pressure 1: 120/80 Code: 8480-6 BMI: 28.3 Code: 62357-2 Heart Rate 1: 80 bpm Height: 5'3" SpO2: 99% Weight: 160 lbs 05/08/2016 Blood Pressure 1: 138/70 Code: 8480-6 BMI: 26.9 Code: 24512-3 Heart Rate 1: 93 bpm Height: 5'3" SpO2: 98% Weight: 152 lbs 03/28/2016 Blood Pressure 1: 144/74 Code: 8480-6 BMI: 27.6 Code: 73559-5 Heart Rate 1: 85 bpm Height: 5'3" SpO2: 99% Weight: 156 lbs 01/22/2016 Blood Pressure 1: 140/82 Code: 8480-6 BMI: 28.9 Code: 70637-4 Heart Rate 1: 104 bpm Height: 5'3" SpO2: 94% Weight: 163 lbs 12/21/2015 Blood Pressure 1: 140/90 Code: 8480-6 BMI: 28.7 Code: 37352-6 Heart Rate 1: 99 bpm Height: 5'3" SpO2: 96% Weight: 162 lbs 11/06/2015 Blood Pressure 1: 110/60 Code: 8480-6 BMI: 29.8 Code: 25577-0 Heart Rate 1: 93 bpm Height: 5'3" SpO2: 98% Weight: 168 lbs 10/20/2015 Blood Pressure 1: 152/62 Code: 8480-6 BMI: 29.8 Code: 41858-1 Heart Rate 1: 86 bpm Height: 5'3" SpO2: 96% Weight: 168 lbs 10/09/2015 Blood Pressure 1: 152/60 Code: 8480-6 BMI: 30.2 Code: 82690-2 Heart Rate 1: 83 bpm Height: 5'3" SpO2: 98% Weight: 170 lbs 8 oz 09/21/2015 Blood Pressure 1: 160/74 Code: 8480-6 Blood Pressure 1: 168/72 Code: 8480-6 BMI: 29.8 Code: 63752-4 Heart Rate 1: 82 bpm Height: 5'3" SpO2: 99% Weight: 168 lbs 08/22/2015 Blood Pressure 1: 170/82 Code: 8480-6 Blood Pressure 1: 178/78 Code: 8480-6 BMI: 29.2 Code: 34143-8 Heart Rate 1: 85 bpm Height: 5'3" SpO2: 99% Weight: 165 lbs 04/07/2015 Blood Pressure 1: 140/68 Code: 8480-6 BMI: 29.9 Code: 48497-3 Heart Rate 1: 81 bpm Height: 5'3" SpO2: 99% Weight: 169 lbs 01/02/2015 Blood Pressure 1: 162/72 Code: 8480-6 BMI: 30.3 Code: 49158-7 Heart Rate 1: 88 bpm Height: 5'3" [...] glucose at home, see scanned readings 10/07/2016 [facility] diabetes mellitus Pertinent Findings Denies dizziness 10/07/2016 [...] disturbance[ICD10: F02.81] [facility] CPT-4: 72230 08/26/2018 ([id number]) 13285 EST. PATIENT, LEVEL IV Diagnosis: Type 2 diabetes mellitus with other specified complication[ICD10: E11.69] Diagnosis: Essential (primary) hypertension[ICD10: I10] Diagnosis: Other allergic rhinitis[ICD10: J30.89] Diagnosis: Chronic kidney disease, stage 4 (severe)[ICD10: N18.4] [facility] CPT-4: 50140 07/20/2018 [id number]) 79213 EST. PATIENT, LEVEL III Diagnosis: Essential (primary) hypertension[ICD10: I10] Diagnosis: Type 2 diabetes mellitus with other specified complication[ICD10: E11.69] Cordelia Garg MD, [facility] CPT-4: 57537 03/05/2018 [id number]) 20885 EST. PATIENT, LEVEL IV Diagnosis: Type 2 diabetes mellitus with hyperglycemia[ICD10: E11.65] Diagnosis: Hypothyroidism, unspecified[ICD10: E03.9] Diagnosis: Essential (primary) hypertension[ICD10: I10] Diagnosis: Chronic kidney disease, stage 4 (severe)[ICD10: N18.4] Cordelia Garg MD, [facility] CPT-4: 21110 10/30/2017 ([id number]) 85146 EST. PATIENT, LEVEL IV Diagnosis: Hypothyroidism, unspecified[ICD10: E03.9] Diagnosis: Type 2 diabetes mellitus with hyperglycemia[ICD10: E11.65] Diagnosis: Essential (primary) hypertension[ICD10: I10] Diagnosis: Chronic kidney disease, stage 4 (severe)[ICD10: N18.4] Cordelia Garg MD, [facility] CPT-4: 86622 07/03/2017 ([id number]) 76591 EST. PATIENT, LEVEL III Diagnosis: Type 2 diabetes mellitus with hyperglycemia[ICD10: E11.65] Diagnosis: Essential (primary) hypertension[ICD10: I10] Diagnosis: Chronic kidney disease, stage 4 (severe)[ICD10: N18.4] Cordelia Garg MD, [facility] CPT-4: 06300 04/03/2017 ([id number]) 17793 EST. PATIENT, LEVEL III Diagnosis: Type 2 diabetes mellitus with hyperglycemia[ICD10: E11.65] Cordelia Garg MD, [facility] CPT-4: 82808 12/31/2016 ([id number]) 96285 EST. PATIENT, LEVEL II Diagnosis: Type 2 diabetes mellitus with hyperglycemia[ICD10: E11.65] Diagnosis: Essential (primary) hypertension[ICD10: I10] Diagnosis: Actinic keratosis[ICD10: L57.0] Cordelia Garg MD, [facility] CPT-4: 72485 10/07/2016 ([id number]) 29127 EST. PATIENT, LEVEL IV Diagnosis: Type 2 diabetes mellitus with hyperglycemia[ICD10: E11.65] Diagnosis: Essential (primary) hypertension[ICD10: I10] Cordelia Garg MD, [facility] CPT-4: 51310 09/19/2016 ([id number]) 89791 EST. PATIENT, LEVEL III Diagnosis: Type 2 diabetes mellitus with hyperglycemia[ICD10: E11.65] Diagnosis: Gastro-esophageal reflux disease without esophagitis[ICD10: K21.9] Cordelia Garg MD, [facility] CPT-4: 83233 07/08/2016 ([id number]) 58995 EST. PATIENT, LEVEL III Diagnosis: Type 2 diabetes mellitus with hyperglycemia[ICD10: E11.65] Riana Garg MD, [facility] CPT-4: 66200 05/08/2016 ([id number]) 52634 EST. PATIENT, LEVEL IV Diagnosis: Essential (primary) hypertension[ICD10: I10] Diagnosis: Type 2 diabetes mellitus with hyperglycemia[ICD10: E11.65] Diagnosis: Hypothyroidism, unspecified[ICD10: E03.9] Diagnosis: Chronic kidney disease, stage 4 (severe)[ICD10: N18.4] Cordelia Garg MD, [facility] CPT-4: 98275 03/28/2016 ([id number]) 19172 EST. PATIENT, LEVEL III Diagnosis: Type 2 diabetes mellitus with hyperglycemia[ICD10: E11.65] Diagnosis: Essential (primary) hypertension[ICD10: I10] Cordelia Garg MD, [facility] CPT-4: 31969 01/22/2016 ([id number]) 01858 EST. PATIENT, LEVEL IV Diagnosis: Type 2 diabetes mellitus with hyperglycemia[ICD10: E11.65] Diagnosis: Hypothyroidism, unspecified[ICD10: E03.9] Diagnosis: Essential (primary) hypertension[ICD10: I10] Diagnosis: Chronic kidney disease, stage 4 (severe)[ICD10: N18.4] Riana Garg MD, [facility] CPT-4: 05790 12/21/2015 ([id number]) 14845 EST. PATIENT, LEVEL III Diagnosis: Type 2 diabetes mellitus with hyperglycemia[ICD10: E11.65] Riana Garg MD, [facility] CPT-4: 18275 11/06/2015 ([id number]) 24425 EST. PATIENT, LEVEL IV Diagnosis: Type 2 diabetes mellitus with hyperglycemia[ICD10: E11.65] Diagnosis: Essential (primary) hypertension[ICD10: I10] Cordelia Garg MD, [facility] CPT-4: 83618 10/20/2015 ([id number]) 77807 EST. PATIENT, LEVEL IV Diagnosis: Type 2 diabetes mellitus with hyperglycemia[ICD10: E11.65] Diagnosis: Essential (primary) hypertension[ICD10: I10] Diagnosis: Actinic keratosis[ICD10: L57.0] Riana Garg MD [facility] CPT-4: 73668 10/09/2015 ([id number]) 67051 EST. PATIENT, LEVEL IV Diagnosis: Type 2 diabetes mellitus with hyperglycemia[ICD10: E11.65] Diagnosis: Essential (primary) hypertension[ICD10: I10] Riana Garg MD [facility] CPT-4: 19288 09/21/2015 ([id number]) 19025 EST. PATIENT, LEVEL IV Diagnosis: Type 2 diabetes mellitus with hyperglycemia[ICD10: E11.65] Diagnosis: Hypothyroidism, unspecified[ICD10: E03.9] Diagnosis: Essential (primary) hypertension[ICD10: I10] Riana Garg MD, [facility] CPT-4: 94004 08/22/2015 ([id number]) 10266 EST. PATIENT, LEVEL IV Diagnosis: ESSENTIAL HYPERTENSION[ICD9: 401.9] Diagnosis: HYPERLIPIDEMIA[ICD9: 272.4] Diagnosis: DIABETES TYPE II[ICD9: 250.00] Riana Garg MD, [facility] CPT-4: 61081 04/07/2015 ([id number]) OFFICE/OUTPATIENT VISIT NEW Diagnosis: ESSENTIAL HYPERTENSION[ICD9: 401.9] Diagnosis: Diabetes mellitus out of control[ICD9: 250.02] Diagnosis: HYPOTHYROIDISM[ICD9: 244.9] Diagnosis: HYPERLIPIDEMIA[ICD9: 272.4] Riana Garg MD, [facility] CPT-4: 97442 01/02/2015 Plan of Care Planned Activity Notes Codes Status Date Visit Plan: Dementia with Behaviors - I have discussed this patient's case with the pt and available family. The patient is on medication which appears to be controlling the worst of the symptoms. I have not recomm ended a change to the regimen at this time, but will continue to closely monitor the medications for effectiveness. 08/26/2018 App[facility]ment: [phone] [id number] ([facility] min[facility] Complex 08/26/2018 Patient Education: Patient [...] starting to become less controlled. CKD-patient sees tissue technologist-has decided not to do dialysis right now Allergies-rx for flonase 07/20/2018 Appointment: [facility] [phone] [facility] [phone] (15 min) Moderate 07/20/2018 Patient Education: Patient [...] controlled. 03/05/2018 Appointment: [facility] [phone] [facility] [phone] (30 min) Complex 03/05/2018 Patient Education: Patient [...] voltaren gel 10/30/2017 Appointment: Cordelia Kumar WPtel: [address] [place], [place] [phone] (30 min) [facility] 10/30/2017 Patient Education: Patient Medication Summary [...] starting to become less controlled. Left thumb dbtp-[id number]-lhkugeuba voltaren gel if symptoms persist 07/03/2017 Appointment: Cordelia Kumar WPtel: [phone] [id number] (30 min) Complex 07/03/2017 Patient Education: Patient [...] to become less controlled. Chronic renal disease-sees tissue technologist and also deputy building guard for management of anemia 04/03/2017 Visit Plan: [...] to become less controlled. Chronic renal disease-sees tissue technologist and also deputy building guard for management of anemia 04/03/2017 Appointment: Cord[facility]el[phone] (30 min) Complex 04/03/2017 Patient Education: Patient [...] controlled. 12/31/2016 Appointment: Cord[facility] Kumar [facility]Ptel[phone] (30 min) [facility] 12/31/2016 Patient Education: Patient Medication Summary [...] acute concerns. 10/07/2016 Appointment: Cordelia Kumar WPtel: [facility] [address] (30 min) Complex 10/07/2016 Appointment: Cordelia Kumar WPtel: [address] [place], [place] [id number] [place] [address] (30 min) Complex 10/07/2016 Patient Education: Patient [...] at home. 09/19/2016 Appointment: Cordelia Kumar WPtel: [address] [place] [address] (30 min) Complex 09/19/2016 Patient Education: Patient [...] Summary Completed 07/08/2016 Appointment: Cordelia Kumar WPtel: [id number] [place] [address] (30 min) Complex 06/20/2016 Visit Plan: Diabetes [...] stage 4- patient to make appt with [place] [facility] Addendum: Patient has since moved to [facility] since this office visit. They [...] stage 4- patient to make appt with [place] [facility] 03/28/2016 Visit Plan: Hypertension [...] stage 4- patient to make appt with [place] [facility] Addendum: Patient noncompliant with blood sugar logs-she has been instructed to test QID but only tests daily- she did not bring her log for review today.- Patient has since moved to [facility] since this office visit. They [...] today.- Patient has since moved to [facility] and they are checking her blood sugars AC and HS due to uncontrolled diabetes-she is on a sliding scale insulin which requires more frequent monitoring of blood sugars. 03/28/2016 Patient Education: Patient Medication Summary Completed 03/28/2016 Appointment: Cordelia Kumar [facility]Ptel: [phone] (30 min) Complex 03/26/2016 Appointment: Cordelia Kumar [facility]Ptel: [phone] (30 min) Complex 02/20/2016 Visit Plan: Diabetes [...] at home. 01/22/2016 Appointment: Cordelia Kumar WPtel: [phone] (30 min) [facility] 01/22/2016 Patient Education: Patient Medication Summary Completed [...] pt has been seeing a group in [facility] - but would like to be seen in [place] to avoid excessive travel. 12/21/2015 Patient Education: Patient Medication Summary Completed 12/21/2015 Appointment: [id number] (15 min) Moderate 12/18/2015 Visit Plan: [...] 04/07/2015 Appointment: Riana [facility]arg [facility]el[phone] Follow up 04/07/2015 Patient Education: Patient [...] of control. 01/02/2015 Appointment: Riana Garg [facility]Ptel[phone] [place] [facility] New Patient 01/02/2015 Patient [...] starting to become less controlled. Left thumb pzxt-fshnvpd-ogfukbnlw voltaren gel if symptoms persist DO NOT [...] pt is to call for acute concerns. Brenda for reflux symptoms- script sent with patient [...] controlled. GERD-mylanta prn for gi upset. . Diabetes Mellitus - controlled - per [...] to become less controlled. 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 Hypertension - [...] to become less controlled. 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 Diabetes Mellitus [...] disease stage 4-patient to make appt with [place] [facility] Addendum: Patient has since moved to [facility] since this office visit. They [...] disease stage 4-patient to make appt with [place] [facility] . Hypertension - well [...] disease stage 4-patient to make appt with [place] [facility] Addendum: Patient noncompliant with blood sugar logs-she has been instructed to test QID but only tests daily-she did not bring her log for review today.- Patient has since moved to [facility] since this office visit. They [...] located in the [facility] at [address] [place] [address] in [place] - phone number is [phone] . Hypertension - well controlled - continue [...] located in the [facility] at [address] [place] [address] in [place] - phone number is [phone] . Hypertension - well controlled - continue [...] pt has been seeing a group in [facility] - but would like to be seen in [place] to avoid excessive travel. . Dementia with [...] will have [facility] fax over blood sugar log. . [...] recommended to treat at next office visit check hgb a1c flonase nasal spray . [...] starting to become less controlled. CKD-patient sees tissue technologist-has decided not to do dialysis right now Allergies-rx for flonase . Hypertension - well controlled - continue [...] today.- Patient has since moved to [facility] and they are checking her blood sugars AC and HS due to uncontrolled diabetes-she is on a sliding scale insulin which requires more frequent monitoring of blood sugars.
--- OUTSIDE RECORDS SUMMARY | 2019-02-16 19:10 | XMS REPORT | CCD ---
Author Author [facility] Organization [facility] Address [address] [place] [address] Phone Care Team Providers Care Planning Consultant Name Role Phone PP Unavailable CCM Unavailable Summary Purpose Interface Exchange Insurance Providers Payer name Policy type / Coverage type Covered constitution party ID Effective Begin Date Effective End Date WPS Medicare Part B [id number] 2015 Unknown [facility] Assistance [id number] 2015 Unknown Family history Mother Diagnosis Age At Onset Anemia Unknown Stroke Unknown Arthritis Unknown Hypertension Unknown Father Diagnosis Age At Onset Cancer Unknown Social History Social History Element Codes Description Effective Dates Marital status Unknown 01/02/2015 Number of children Unknown 3 01/02/2015 Employment Unknown Retired 01/02/[address]: 1631607 Quit over 10 years ago 25 years ago 01/02/[address]: 408590486 Never drinks alcohol 01/02/2015 Allergies, Adverse Reactions, [...] ICD-9: 401.9 ICD-10: I10 Active 01/01/2015 Unknown Other allergic rhinitis ICD-9: 477.8 ICD-10: [...] hypertension ICD-9: 401.9 ICD-10: I10 01/01/2015 Active Other allergic rhinitis ICD-9: 477.8 ICD-10: [...] Start Date Stop Date Status Fill Instructions Voltaren 1 % topical gel RxNorm: 231130 2 Gram(s) TOP QID 10/30/2017 No Stop Date Active Novolog 100 unit/mL subcutaneous solution RxNorm: 406965 5-10 Unit(s) SQ QID per sliding scale 07/03/2017 No Stop Date Active Novolog 100 unit/mL subcutaneous solution RxNorm: 165998 8 Unit(s) SQ at noon 09/27/2016 No Stop Date Active Novolog Flexpen 100 unit/mL subcutaneous RxNorm: 0540910 8 Unit(s) SQ at noon 09/27/2016 09/27/2016 Inactive Novolog Flexpen 100 unit/mL subcutaneous RxNorm: 6758199 8 Unit(s) SQ at noon 09/27/2016 09/26/2016 Inactive Novolog 100 unit/mL subcutaneous solution RxNorm: 121342 9 Unit(s) SQ at noon 09/27/2016 09/26/2016 Inactive Lantus 100 unit/mL subcutaneous solution RxNorm: 314426 25 Unit(s) SQ QHS 09/19/2016 No Stop Date Active Coreg 6.25 mg tablet RxNorm: 365622 2 Tablet(s) PO BID 07/08/2016 09/30/2017 Inactive Lantus Solostar 100 unit/mL (3 mL) subcutaneous insulin pen RxNorm: 944627 25 Unit(s) SQ QAM and 50 Units at bedtime 04/05/2016 05/07/2016 Inactive Synthroid 150 mcg tablet RxNorm: 038568 1 Tablet(s) PO daily 04/05/2016 07/02/2017 Inactive Lantus Solostar 100 unit/mL (3 mL) subcutaneous insulin pen RxNorm: 348169 20 Unit(s) SQ QAM and 45 Units at bedtime 01/03/2016 01/07/2016 Inactive Synthroid 125 mcg tablet RxNorm: 345094 1 Tablet(s) PO daily 12/20/2015 12/19/2015 Inactive Synthroid 125 mcg tablet RxNorm: 837339 1 Tablet(s) PO daily 12/20/2015 04/04/2016 Inactive Novolog Flexpen 100 unit/mL subcutaneous RxNorm: 8958647 15 Unit(s) SQ am and 15 units @ noon BID 11/15/2015 05/07/2016 Inactive Lantus Solostar 100 unit/mL (3 mL) subcutaneous insulin pen RxNorm: 284542 10 Unit(s) SQ QAM and 40 Units at bedtime 11/15/2015 11/19/2015 Inactive increased from 25u Coreg 6.25 mg tablet RxNorm: 008728 1.5 Tablet(s) PO BID 10/09/2015 07/07/2016 Inactive Lantus Solostar 100 unit/mL (3 mL) subcutaneous insulin pen RxNorm: 578005 35 Unit(s) SQ QHS 09/26/2015 11/14/2015 Inactive increased from 25u Novolog Flexpen 100 unit/mL subcutaneous RxNorm: 1076266 12 Unit(s) SQ am and 12 units @ noon BID 09/25/2015 11/14/2015 Inactive losartan 100 mg tablet RxNorm: 313433 1 Tablet(s) PO daily 09/21/2015 09/14/2016 Inactive Lantus Solostar 100 unit/mL (3 mL) subcutaneous insulin pen RxNorm: 619805 35 Unit(s) SQ QHS 09/21/2015 09/25/2015 Inactive Novolog Flexpen 100 unit/mL subcutaneous RxNorm: 7648437 12 Unit(s) SQ am and 12 units @ noon BID - dr to increase based on glucose readings hgba1c 10.4 09/21/2015 09/24/2015 Inactive Lantus Solostar 100 unit/mL (3 mL) subcutaneous insulin pen RxNorm: 598533 25 Unit(s) SQ QHS 08/29/2015 09/20/2015 Inactive Novolog Flexpen 100 unit/mL subcutaneous RxNorm: 7340658 8 Unit(s) SQ am and noon BID 08/29/2015 09/20/2015 Inactive Lantus Solostar 100 unit/mL (3 mL) subcutaneous insulin pen RxNorm: 667829 25 Unit(s) SQ QHS 08/25/2015 08/28/2015 Inactive losartan 50 mg tablet RxNorm: 602412 1 Tablet(s) PO daily 08/22/2015 09/20/2015 Inactive levothyroxine 125 mcg tablet RxNorm: 984507 1 Tablet(s) PO daily 01/23/2015 04/22/2015 Inactive Plavix 75 mg tablet RxNorm: 550711 1 Tablet(s) PO daily 01/02/2015 09/22/2016 Inactive Aranesp 25 mcg/mL (in polysorbate) Injection RxNorm: 453990 Milliliter(s) Inj 30mcg q 2 weeks 01/02/2015 05/08/2016 Inactive [SAVINGS FOR NON-COVERED DRUGS -- BIN:[id number], PCN: [id number], Group: [id number], ID# [id number], Questions: . THIS IS NOT INSURANCE.] aspirin 81 mg chewable tablet RxNorm: 389873 1 Tablet(s) PO daily 01/02/2015 05/07/2016 Inactive Coreg 6.25 mg tablet RxNorm: 575602 1 Tablet(s) PO BID 01/02/2015 10/08/2015 Inactive Fish Oil 300 mg-1,000 mg capsule RxNorm: 712234 2 Capsule(s) PO daily No Start Date Active sodium bicarbonate 650 mg tablet RxNorm: 922451 1 Tablet(s) PO BID No Start Date Active Crestor 40 mg tablet RxNorm: 852582 1 Tablet(s) PO daily No Start Date Active Multiple Vitamins tablet RxNorm: 1 Tablet(s) PO daily No Start Date Active Vitamin D3 2,000 unit tablet RxNorm: 107454 1 Tablet(s) PO daily No Start Date Active ferrous sulfate 325 mg (65 mg iron) tablet RxNorm: 557011 1 Tablet(s) PO daily No Start Date Active Vitamin B12 Oral RxNorm: oral No Start Date Active Aranesp 40 mcg/mL (in polysorbate) Injection RxNorm: 374425 Inject 1 Milliliter(s) SQ Every 2 weeks No Start Date Active levothyroxine 100 mcg tablet RxNorm: 110491 1 Tablet(s) PO daily No Start Date Active calcium carbonate 200 mg calcium (500 mg) chewable tablet RxNorm: 898709 1-2 Tablet(s) PO daily No Start Date Active ferrous sulfate 325 mg (65 mg iron) tablet RxNorm: 522086 1 Tablet(s) PO daily No Start Date 05/07/2016 Inactive Aranesp 25 mcg/mL (in polysorbate) Injection RxNorm: 664468 injection No Start Date 01/01/2015 Inactive lovastatin 40 mg tablet RxNorm: 311791 1 Tablet(s) PO daily No Start Date 05/07/2016 Inactive Lipitor 40 mg tablet RxNorm: 627008 1 Tablet(s) PO QHS No Start Date 01/01/2015 Inactive amlodipine 2.5 mg tablet RxNorm: 774150 1 Tablet(s) PO BID No Start Date 12/16/2014 Inactive sodium bicarbonate 325 mg tablet RxNorm: 736544 1 Tablet(s) PO BID No Start Date 05/07/2016 Inactive levothyroxine 150 mcg tablet RxNorm: 013543 1 Tablet(s) PO daily No Start Date 01/22/2015 Inactive Lantus Solostar 100 unit/mL (3 mL) subcutaneous insulin pen RxNorm: 977916 20 Unit(s) SQ QHS No Start Date 08/24/2015 Inactive Lantus 100 unit/mL subcutaneous solution RxNorm: 124044 30 Unit(s) SQ QHS No Start Date 09/18/2016 Inactive Novolog 100 unit/mL subcutaneous solution RxNorm: 443667 10 Unit(s) SQ BID in the AM and at noon No Start Date 07/02/2017 Inactive aspirin 81 mg tablet RxNorm: 498639 1 Tablet(s) PO daily No Start Date 01/01/2015 Inactive Novolog Flexpen 100 unit/mL subcutaneous RxNorm: 5571522 8 Unit(s) SQ am and noon BID No Start Date 08/28/2015 Inactive glimepiride 4 mg tablet RxNorm: 925576 1 Tablet(s) PO daily No Start Date 10/08/2015 Inactive Vitamin D3 2,000 unit capsule RxNorm: 673647 1 Capsule(s) PO daily No Start Date 05/08/2016 Inactive metoprolol tartrate 12.5 Tablet RxNorm: 1 Tablet(s) PO BID No Start Date 12/16/2014 Inactive Medication Administered No Medication Administered data Immunizations Vaccine Codes Date Status Influenza CVX: 141 06/06/2017 completed Assessments Condition Codes Effective Dates Dysuria ICD-10: R30.0 ICD-9: 788.1 08/25/2018 Other [...] Reason For Visit Effective Dates Notes headache 07/20/2018 diabetes mellitus 03/05/2018 diabetes mellitus [...] Observation Code Item Item Code Result Date Tsh Ord6 TSH (3rd IS) 1.93 uIU/mL 08/24/2018 Free T4 Kqz300 FREE T4 1.05 ng/dL 08/24/2018 Urinalysis Ord28 [...] 56.8 % 08/17/2018 Cbc With Differential Ord2 Lymph% 30.3 % 08/17/2018 Cbc With Differential Ord2 MCV 94.1 fl 08/17/2018 Cbc With Differential Ord2 Hitchcock% 9.8 % 08/17/2018 Cbc With Differential Ord2 [...] 2.14 K/ul 08/17/2018 Cbc With Differential Ord2 Hitchcock ABS# 0.7 K/ul 08/17/2018 Cbc With Differential Ord2 Eos ABS# 0.2 K/ul 08/17/2018 Cbc With Differential Ord2 Baso ABS# 0.0 K/ul 08/17/2018 Comp Metabolic Fde080 NA 143 mEq/L 04/14/2018 Comp Metabolic Flu834 K 4.6 mEq/L 04/14/2018 Comp Metabolic Nmp272 CL 108 mEq/L 04/14/2018 Comp Metabolic Pui487 CO2 23.0 mEq/L 04/14/2018 Comp Metabolic Zhp107 ANION GAP 17 04/14/2018 Comp Metabolic Ddy337 GLUCOSE 54 mg/dL 04/14/2018 Comp Metabolic Wyf322 Creat 2.7 mg/dL 04/14/2018 Comp Metabolic Lhg590 eGFR 18 ml/min/1.73m2 04/14/2018 Comp Metabolic Cha263 BUN 45 mg/dL 04/14/2018 Comp Metabolic Xei259 B/C Ratio 16.9 Ratio 04/14/2018 Comp Metabolic Iqp274 CALCIUM 8.3 mg/dL 04/14/2018 Comp Metabolic Dzx030 ALK PHOS 113 U/L 04/14/2018 Comp Metabolic Hyi598 AST(SGOT) 31 U/L 04/14/2018 Comp Metabolic Fog530 ALT(SGPT) 33 U/L 04/14/2018 Comp Metabolic Pah173 BILI T 0.5 mg/dL 04/14/2018 Comp Metabolic Pve359 ALBUMIN 3.6 g/dL 04/14/2018 Comp Metabolic Twm322 TPRO 6.5 g/dL 04/14/2018 Comp Metabolic Acy866 GLOB 2.9 g/dL 04/14/2018 Comp Metabolic Vnx356 A/G Ratio 1.2 Ratio 04/14/2018 Comp Metabolic Uqc214 Osmo 294 mOsmo 04/14/2018 Lipid Ord30 CHOL [...] Ord28 U-Com Culture to follow 01/21/2018 %Hba1C Rwa423 % HbA1c 59626- 6 7.4 % 11/03/2017 %Hba1C Qeh368 Gluc Ave 166 mg/dL 11/03/2017 Urine Culture [...] 85.1 fl 09/20/2016 Cbc With Differential Ord2 Hitchcock% 11.3 % 09/20/2016 Cbc With Differential Ord2 MCH 26.3 pg 09/20/2016 Cbc With Differential Ord2 MCHC 30.9 pg 09/20/2016 Cbc With Differential Ord2 Eos% 3.8 % 09/20/2016 Cbc With Differential Ord2 PLT 196 K/ul 09/20/2016 Cbc With Differential Ord2 Baso% 1.9 % 09/20/2016 Cbc With Differential Ord2 Neut ABS# 2.91 K/ul 09/20/2016 Cbc With Differential Ord2 RDW 16.0 % 09/20/2016 Cbc With Differential Ord2 Lymph ABS# 1.08 K/ul 09/20/2016 Cbc With Differential Ord2 Hitchcock ABS# 0.5 K/ul 09/20/2016 Cbc With Differential Ord2 Eos ABS# 0.2 K/ul 09/20/2016 Cbc With Differential Ord2 Baso ABS# 0.1 K/ul 09/20/2016 Comp Metabolic Zuq056 NA 141 mEq/L 09/20/2016 Comp Metabolic Sjj082 K 5.9 Result Verified By Repeat Analysis mEq/L 09/20/2016 Comp Metabolic Zgk681 CL 110 mEq/L 09/20/2016 Comp Metabolic Ffn930 CO2 23.0 mEq/L 09/20/2016 Comp Metabolic Gha526 ANION GAP 14 09/20/2016 Comp Metabolic Acu149 GLUCOSE 101 mg/dL 09/20/2016 Comp Metabolic Qhp285 Creat 2.2 mg/dL 09/20/2016 Comp Metabolic Klb483 eGFR 23 ml/min/1.73m2 09/20/2016 Comp Metabolic Yoe622 BUN 49 mg/dL 09/20/2016 Comp Metabolic Idv209 B/C Ratio 22.0 Ratio 09/20/2016 Comp Metabolic Qcr118 CALCIUM 8.7 mg/dL 09/20/2016 Comp Metabolic Ftp022 ALK PHOS 142 U/L 09/20/2016 Comp Metabolic Xpt330 AST(SGOT) 26 U/L 09/20/2016 Comp Metabolic Mep982 ALT(SGPT) 27 U/L 09/20/2016 Comp Metabolic Jtc796 BILI T 0.3 mg/dL 09/20/2016 Comp Metabolic Tqm643 ALBUMIN 4.0 g/dL 09/20/2016 Comp Metabolic Tid287 TPRO 7.6 g/dL 09/20/2016 Comp Metabolic Tge288 GLOB 3.6 g/dL 09/20/2016 Comp Metabolic Ola044 A/G Ratio 1.1 Ratio 09/20/2016 Comp Metabolic Ouc682 Osmo 294 mOsmo 09/20/2016 %Hba1C Nar638 % HbA1c 49260- 6 6.7 % 09/20/2016 %Hba1C Vqy659 Gluc Ave 146 mg/dL 09/20/2016 Urinalysis Ord28 [...] 05/31/2016 Urinalysis Ord28 U-Yeast NEGATIVE 05/31/2016 %Hba1C Ujh506 % HbA1c 88963- 6 13.5 % 03/28/2016 %Hba1C Wws223 Gluc Ave 341 mg/dL 03/28/2016 Tsh Ord6 hTSH II 16.02 uIU/mL 03/28/2016 Comp Metabolic Dfn839 NA 133 mEq/L 03/28/2016 Comp Metabolic Atn106 K 5.4 mEq/L 03/28/2016 Comp Metabolic Dlf416 CL 102 mEq/L 03/28/2016 Comp Metabolic Esw852 CO2 22.0 mEq/L 03/28/2016 Comp Metabolic Bzi772 ANION GAP 14 03/28/2016 Comp Metabolic Cot838 GLUCOSE 432 mg/dL 03/28/2016 Comp Metabolic Pys920 Creat 1.9 mg/dL 03/28/2016 Comp Metabolic Rcz967 eGFR 27 ml/min/1.73m2 03/28/2016 Comp Metabolic Tqs542 BUN 38 mg/dL 03/28/2016 Comp Metabolic Gsw192 B/C Ratio 19.6 Ratio 03/28/2016 Comp Metabolic Xcb028 CALCIUM 8.9 mg/dL 03/28/2016 Comp Metabolic Zuz814 ALK PHOS 84 U/L 03/28/2016 Comp Metabolic Yey382 AST(SGOT) 9 U/L 03/28/2016 Comp Metabolic Cvj285 ALT(SGPT) 6 U/L 03/28/2016 Comp Metabolic Nby929 BILI T 0.4 mg/dL 03/28/2016 Comp Metabolic Wtc638 ALBUMIN 3.6 g/dL 03/28/2016 Comp Metabolic Diu275 TPRO 6.8 g/dL 03/28/2016 Comp Metabolic Yzb786 GLOB 3.2 g/dL 03/28/2016 Comp Metabolic Zbr277 A/G Ratio 1.1 Ratio 03/28/2016 Comp Metabolic Eud008 Osmo 294 mOsmo 03/28/2016 Free T4 Cje221 FREE T4 0.72 ng/dL 03/28/2016 Comp Metabolic Krg908 NA 132 mEq/L 12/22/2015 Comp Metabolic Vyq843 K 4.6 mEq/L 12/22/2015 Comp Metabolic Jbv178 CL 97 mEq/L 12/22/2015 Comp Metabolic Nlr183 CO2 24.0 mEq/L 12/22/2015 Comp Metabolic Rfz476 ANION GAP 16 12/22/2015 Comp Metabolic Fhe363 GLUCOSE 354 mg/dL 12/22/2015 Comp Metabolic Izi926 Creat 1.8 mg/dL 12/22/2015 Comp Metabolic Gll201 eGFR 29 ml/min/1.73m2 12/22/2015 Comp Metabolic Met743 BUN 47 mg/dL 12/22/2015 Comp Metabolic Wit316 B/C Ratio 26.3 Ratio 12/22/2015 Comp Metabolic Rot965 CALCIUM 9.5 mg/dL 12/22/2015 Comp Metabolic Lhz595 ALK PHOS 100 U/L 12/22/2015 Comp Metabolic Otz508 AST(SGOT) 15 U/L 12/22/2015 Comp Metabolic Uny229 ALT(SGPT) 11 U/L 12/22/2015 Comp Metabolic Lsy977 BILI T 0.4 mg/dL 12/22/2015 Comp Metabolic Ioe702 ALBUMIN 3.7 g/dL 12/22/2015 Comp Metabolic Nfy189 TPRO 7.1 g/dL 12/22/2015 Comp Metabolic Edv287 GLOB 3.4 g/dL 12/22/2015 Comp Metabolic Xnc554 A/G Ratio 1.1 Ratio 12/22/2015 Comp Metabolic Dpo008 Osmo 291 mOsmo 12/22/2015 Microalbumin Kvv357 MicroAlb 25.4 mg/dL 12/22/2015 Random Urine Protein/Creatinine Ratio Dto2306 U Prot 63.3 mg/dl 12/22/2015 Random Urine Protein/Creatinine Ratio Vcg1857 U CREAT 83.0 mg/dL 12/22/2015 Random Urine Protein/Creatinine Ratio Pig6946 R MTP/Creat Ratio 0.76 12/22/2015 %Hba1C Vwg008 % HbA1c 33239- 6 11.9 % 12/21/2015 %Hba1C Qrx668 Gluc Ave 295 mg/dL 12/21/2015 Review of Systems System Result Effective Dates Constitutional No recent illness 07/20/2018 Constitutional No [...] Procedure Codes Date DESTRUCT PREMALG LESION CPT-4: 64781 10/07/2016 Vital Signs Date Vital 07/20/2018 Blood Pressure 1: 144/70 Code: 8480-6 BMI: 28.3 Code: 30039-0 Heart Rate 1: 82 bpm Height: 5'3" SpO2: 100% Weight: 160 lbs 03/05/2018 Blood Pressure 1: 144/66 Code: 8480-6 BMI: 28.7 Code: 47006-7 Heart Rate 1: 83 bpm Height: 5'3" SpO2: 99% Weight: 162 lbs 10/30/2017 Blood Pressure 1: 122/58 Code: 8480-6 BMI: 30.1 Code: 50886-2 Heart Rate 1: 78 bpm Height: 5'3" SpO2: 98% Weight: 170 lbs 07/03/2017 Blood Pressure 1: 148/78 Code: 8480-6 BMI: 29.8 Code: 34343-3 Heart Rate 1: 80 bpm Height: 5'3" SpO2: 99% Weight: 168 lbs 04/03/2017 Blood Pressure 1: 144/64 Code: 8480-6 BMI: 29.1 Code: 06717-4 Heart Rate 1: 78 bpm Height: 5'3" SpO2: 98% Weight: 164 lbs 12/31/2016 Blood Pressure 1: 138/70 Code: 8480-6 BMI: 30.3 Code: 62893-9 Heart Rate 1: 84 bpm Height: 5'3" SpO2: 90% Weight: 171 lbs 10/07/2016 Blood Pressure 1: 146/78 Code: 8480-6 BMI: 29.4 Code: 53172-3 Heart Rate 1: 73 bpm Height: 5'3" SpO2: 99% Weight: 166 lbs 09/19/2016 Blood Pressure 1: 168/76 Code: 8480-6 BMI: 29.2 Code: 70265-1 Heart Rate 1: 88 bpm Height: 5'3" SpO2: 98% Weight: 165 lbs 07/08/2016 Blood Pressure 1: 120/80 Code: 8480-6 BMI: 28.3 Code: 79452-2 Heart Rate 1: 80 bpm Height: 5'3" SpO2: 99% Weight: 160 lbs 05/08/2016 Blood Pressure 1: 138/70 Code: 8480-6 BMI: 26.9 Code: 02765-0 Heart Rate 1: 93 bpm Height: 5'3" SpO2: 98% Weight: 152 lbs 03/28/2016 Blood Pressure 1: 144/74 Code: 8480-6 BMI: 27.6 Code: 21508-5 Heart Rate 1: 85 bpm Height: 5'3" SpO2: 99% Weight: 156 lbs 01/22/2016 Blood Pressure 1: 140/82 Code: 8480-6 BMI: 28.9 Code: 18926-5 Heart Rate 1: 104 bpm Height: 5'3" SpO2: 94% Weight: 163 lbs 12/21/2015 Blood Pressure 1: 140/90 Code: 8480-6 BMI: 28.7 Code: 07170-4 Heart Rate 1: 99 bpm Height: 5'3" SpO2: 96% Weight: 162 lbs 11/06/2015 Blood Pressure 1: 110/60 Code: 8480-6 BMI: 29.8 Code: 95347-4 Heart Rate 1: 93 bpm Height: 5'3" SpO2: 98% Weight: 168 lbs 10/20/2015 Blood Pressure 1: 152/62 Code: 8480-6 BMI: 29.8 Code: 06482-5 Heart Rate 1: 86 bpm Height: 5'3" SpO2: 96% Weight: 168 lbs 10/09/2015 Blood Pressure 1: 152/60 Code: 8480-6 BMI: 30.2 Code: 70065-4 Heart Rate 1: 83 bpm Height: 5'3" SpO2: 98% Weight: 170 lbs 8 oz 09/21/2015 Blood Pressure 1: 168/72 Code: 8480-6 Blood Pressure 1: 160/74 Code: 8480-6 BMI: 29.8 Code: 66393-9 Heart Rate 1: 82 bpm Height: 5'3" SpO2: 99% Weight: 168 lbs 08/22/2015 Blood Pressure 1: 170/82 Code: 8480-6 Blood Pressure 1: 178/78 Code: 8480-6 BMI: 29.2 Code: 01714-9 Heart Rate 1: 85 bpm Height: 5'3" SpO2: 99% Weight: 165 lbs 04/07/2015 Blood Pressure 1: 140/68 Code: 8480-6 BMI: 29.9 Code: 67643-2 Heart Rate 1: 81 bpm Height: 5'3" SpO2: 99% Weight: 169 lbs 01/02/2015 Blood Pressure 1: 162/72 Code: 8480-6 BMI: 30.3 Code: 60876-8 Heart Rate 1: 88 bpm Height: 5'3" SpO2: 98% Weight: 171 lbs Functional Status No Functional Status data History of Present Illness Symptom Name Status Result Effective Date Notes Location in the frontal area 07/20/2018 None [...] data Encounters Encounter Performer Location Codes Date ([id number]) 11822 EST. PATIENT, LEVEL IV Diagnosis: Type 2 diabetes mellitus with other specified complication[ICD10: E11.69] Diagnosis: Essential (primary) hypertension[ICD10: I10] Diagnosis: Other allergic rhinitis[ICD10: J30.89] Diagnosis: Chronic kidney disease, stage 4 (severe)[ICD10: N18.4] Cordelia Garg MD, [facility] CPT-4: 43039 07/20/2018 [id number]) [id number] EST. PATIENT, LEVEL III Diagnosis: Essential (primary) hypertension[ICD10: I10] Diagnosis: Type 2 diabetes mellitus with other specified complication[ICD10: E11.69] Cordelia Garg MD, [facility] CPT-4: 02377 03/05/2018 ([id number]) 33214 EST. PATIENT, LEVEL IV Diagnosis: Type 2 diabetes mellitus with hyperglycemia[ICD10: E11.65] Diagnosis: Hypothyroidism, unspecified[ICD10: E03.9] Diagnosis: Essential (primary) hypertension[ICD10: I10] Diagnosis: Chronic kidney disease, stage 4 (severe)[ICD10: N18.4] Cordelia Garg MD, [facility] CPT-4: 28709 10/30/2017 ([id number]) 27089 EST. PATIENT, LEVEL IV Diagnosis: Hypothyroidism, unspecified[ICD10: E03.9] Diagnosis: Type 2 diabetes mellitus with hyperglycemia[ICD10: E11.65] Diagnosis: Essential (primary) hypertension[ICD10: I10] Diagnosis: Chronic kidney disease, stage 4 (severe)[ICD10: N18.4] Cordelia Garg MD, [facility] CPT-4: 09246 07/03/2017 [id number]) 57844 EST. PATIENT, LEVEL III Diagnosis: Type 2 diabetes mellitus with hyperglycemia[ICD10: E11.65] Diagnosis: Essential (primary) hypertension[ICD10: I10] Diagnosis: Chronic kidney disease, stage 4 (severe)[ICD10: N18.4] Cordelia Garg MD, [facility] CPT-4: 18346 04/03/2017 ([id number]) 28355 EST. PATIENT, LEVEL III Diagnosis: Type 2 diabetes mellitus with hyperglycemia[ICD10: E11.65] Cordelia Garg MD, [facility] CPT-4: 06329 12/31/2016 ([id number]) 25143 EST. PATIENT, LEVEL II Diagnosis: Type 2 diabetes mellitus with hyperglycemia[ICD10: E11.65] Diagnosis: Essential (primary) hypertension[ICD10: I10] Diagnosis: Actinic keratosis[ICD10: L57.0] Cordelia Garg MD, [facility] CPT-4: 84588 10/07/2016 ([id number]) 39260 EST. PATIENT, LEVEL IV Diagnosis: Type 2 diabetes mellitus with hyperglycemia[ICD10: E11.65] Diagnosis: Essential (primary) hypertension[ICD10: I10] Cordelia Garg MD, [facility] CPT-4: 52161 09/19/2016 ([id number]) 62891 EST. PATIENT, LEVEL III Diagnosis: Type 2 diabetes mellitus with hyperglycemia[ICD10: E11.65] Diagnosis: Gastro-esophageal reflux disease without esophagitis[ICD10: K21.9] Cordelia Garg MD [facility] CPT-4: 59124 07/08/2016 ([id number]) 05910 EST. PATIENT, LEVEL III Diagnosis: Type 2 diabetes mellitus with hyperglycemia[ICD10: E11.65] Riana Garg MD, [facility] CPT-4: 27542 05/08/2016 ([id number]) 39091 EST. PATIENT, LEVEL IV Diagnosis: Essential (primary) hypertension[ICD10: I10] Diagnosis: Type 2 diabetes mellitus with hyperglycemia[ICD10: E11.65] Diagnosis: Hypothyroidism, unspecified[ICD10: E03.9] Diagnosis: Chronic kidney disease, stage 4 (severe)[ICD10: N18.4] Cordelia Garg MD, [facility] CPT-4: 14174 03/28/2016 ([id number]) 26312 EST. PATIENT, LEVEL III Diagnosis: Type 2 diabetes mellitus with hyperglycemia[ICD10: E11.65] Diagnosis: Essential (primary) hypertension[ICD10: I10] Cordelia Garg MD, [facility] CPT-4: 34269 01/22/2016 ([id number]) 08619 EST. PATIENT, LEVEL IV Diagnosis: Type 2 diabetes mellitus with hyperglycemia[ICD10: E11.65] Diagnosis: Hypothyroidism, unspecified[ICD10: E03.9] Diagnosis: Essential (primary) hypertension[ICD10: I10] Diagnosis: Chronic kidney disease, stage 4 (severe)[ICD10: N18.4] Riana Garg MD, [facility] CPT-4: 68925 12/21/2015 ([id number]) 71929 EST. PATIENT, LEVEL III Diagnosis: Type 2 diabetes mellitus with hyperglycemia[ICD10: E11.65] Riana Garg MD [facility] CPT-4: 22991 11/06/2015 ([id number]) 70302 EST. PATIENT, LEVEL IV Diagnosis: Type 2 diabetes mellitus with hyperglycemia[ICD10: E11.65] Diagnosis: Essential (primary) hypertension[ICD10: I10] Cordelia Garg MD, [facility] CPT-4: 02360 10/20/2015 ([id number]) 10968 EST. PATIENT, LEVEL IV Diagnosis: Type 2 diabetes mellitus with hyperglycemia[ICD10: E11.65] Diagnosis: Essential (primary) hypertension[ICD10: I10] Diagnosis: Actinic keratosis[ICD10: L57.0] Riana Garg MD, [facility] CPT-4: 98737 10/09/2015 ([id number]) 94706 EST. PATIENT, LEVEL IV Diagnosis: Type 2 diabetes mellitus with hyperglycemia[ICD10: E11.65] Diagnosis: Essential (primary) hypertension[ICD10: I10] Riana Garg MD [facility] CPT-4: 37834 09/21/2015 ([id number]) 99114 EST. PATIENT, LEVEL IV Diagnosis: Type 2 diabetes mellitus with hyperglycemia[ICD10: E11.65] Diagnosis: Hypothyroidism, unspecified[ICD10: E03.9] Diagnosis: Essential (primary) hypertension[ICD10: I10] [facility] CPT-4: 84775 08/22/2015 [id number] 24117 EST. PATIENT, LEVEL IV Diagnosis: ESSENTIAL HYPERTENSION[ICD9: 401.9] Diagnosis: HYPERLIPIDEMIA[ICD9: 272.4] Diagnosis: DIABETES TYPE II[ICD9: 250.00] ADINA Dao MD CPT-4: 48016 04/07/2015 ([id number]) OFFICE/OUTPATIENT VISIT NEW Diagnosis: ESSENTIAL HYPERTENSION[ICD9: 401.9] Diagnosis: Diabetes mellitus out of control[ICD9: 250.02] Diagnosis: HYPOTHYROIDISM[ICD9: 244.9] Diagnosis: HYPERLIPIDEMIA[ICD9: 272.4] [facility] CPT-4: 29851 01/02/2015 Plan of Care Planned Activity Notes Codes Status Date Patient Education: Patient Medication Summary Completed 08/25/2018 Care Plan: Urine Culture Pending 08/25/2018 Visit Plan: Hypertension - well controlled [...] starting to become less controlled. CKD-patient sees residential installer-has decided not to do dialysis right now Allergies-rx for flonase 07/20/2018 Appointment: Cordelia Kumar WPtel: [address] [place], [place] [phone] (15 min) Moderate 07/20/2018 Patient Education: Patient [...] [facility] [phone] [facility] [phone] [place] (30 min) Complex 03/05/2018 Patient Education: [...] gel 10/30/2017 Appointment: [facility] [phone] [facility] [phone] [place] (30 min) Complex 10/30/2017 Patient Education: [...] starting to become less controlled. Left thumb jvhe-ngonlsx-obapaqreq voltaren gel if symptoms persist 07/03/2017 Appointment: Cordelia Kumar WPtel: [facility] [phone] (30 min) [facility] 07/03/2017 Patient Education: Patient Medication Summary Completed [...] to become less controlled. Chronic renal disease-sees residential installer and also grey stock recorder for management of anemia 04/03/2017 Visit Plan: [...] to become less controlled. Chronic renal disease-sees residential installer and also grey stock recorder for management of anemia 04/03/2017 Appointment: Cordelia Kumar WPtel: [phone] [facility] [phone] (30 min) Complex 04/03/2017 Patient Education: Patient [...] [facility] [phone] [facility] [phone] (30 min) Complex 12/31/2016 Patient Education: Patient [...] concerns. 10/07/2016 Appointment: Cordelia Kumar WPtel: [phone] [phone] (30 min) Complex 10/07/2016 Appointment: Cordelia Kumar WPtel: [address] [place], [place] [phone] (30 min) Complex 10/07/2016 Patient Education: Patient [...] home. 09/19/2016 Appointment: Cordelia Kumar WPtel: [phone] [phone] (30 min) Complex 09/19/2016 Patient Education: Patient [...] Completed 07/08/2016 Appointment: [id number] (30 min) Complex 06/20/2016 Visit Plan: Diabetes [...] review today.- Patient has since moved to [facility] since this office visit. They are [...] stage 4- patient to make appt with [facility] Addendum: Patient has since moved to [facility] since this office visit. They are [...] stage 4- patient to make appt with [facility] Addendum: Patient noncompliant with blood sugar logs-she has been instructed to test QID but only tests daily- she did not bring her log for review today.- Patient has since moved to [facility] and they are checking her blood sugars AC and HS due to uncontrolled diabetes-she is on a sliding scale insulin which requires more frequent monitoring of blood sugars. 03/28/2016 Patient Education: Patient Medication Summary Completed 03/28/2016 Appointment: Cord[facility] Kumar [phone] [place] (30 min) Complex 03/26/2016 App[facility]ment: Cord[phone] (30 min) Complex 02/20/2016 Visit Plan: Diabetes [...] Kumar WPtel: [phone] (30 min) [facility] 01/22/2016 Patient Education: Patient Medication Summary [...] but would like to be seen in [place] to avoid excessive travel. 12/21/2015 Patient Education: Patient Medication Summary Completed 12/21/2015 Appointment: Riana Garg WPtel: [facility] (15 min) [...] dications. 04/07/2015 Appointment: Riana Garg WPtel: [phone] [facility] Follow up 04/07/2015 Patient Education: Patient Medication [...] of control. 01/02/2015 Appointment: Riana Garg WPtel: [facility] [place] ([place] New Patient 01/02/2015 Patient Education: Patient Medication Summary Completed 01/02/2015 Patient Education: Hypertension Completed 01/02/2015 Instructions Comment Next time you have an appt - please bring in your blood glucose log sheet Dr. Garg will send a referral today to the [facility] - they are located in the [facility] at [address] [place] [address] in [place] - phone number is [phone] . Hypertension - well controlled - continue [...] pustular drainage, or any other acute concerns. DO NOT TAKE NOVOLOG IF YOU DO [...] is to call for acute concerns. . Diabetes Mellitus - controlled - per [...] to become less controlled. Chronic renal disease-sees residential installer and also grey stock recorder for management of anemia . Diabetes Mellitus [...] disease stage 4-patient to make appt with [facility] . Hypertension - well controlled [...] review today.- Patient has since moved to [facility] since this office visit. They are [...] to assure normal liver response to medications. will have [facility] fax over blood sugar log. [...] readings are starting to become less controlled. BRING BLOOD SUGAR LOG IN 1 MONTH [...] months based on previous levels of control. stop the GLIMEPIRIDE make sure that you [...] starting to become less controlled. Left thumb [id number] voltaren gel if symptoms persist Mylanta for reflux symptoms- script sent with [...] starting to become less controlled. CKD-patient sees residential installer-has decided not to do dialysis right now [...] to become less controlled. Chronic renal disease-sees residential installer and also grey stock recorder for management of anemia . Hypertension - [...] disease stage 4-patient to make appt with [facility] Addendum: Patient has since moved to [facility] since this office visit. They are [...] disease stage 4-patient to make appt with [facility] Addendum: Patient noncompliant with blood sugar logs-she has been instructed to test QID but only tests daily-she did not bring her log for review today.- Patient has since moved to [facility] and they are checking her blood sugars AC and HS due to uncontrolled diabetes-she is on a sliding scale insulin which requires more frequent monitoring of blood sugars. Next time you have an appt - please bring in your blood glucose log sheet Dr. Garg will send a referral today to the [facility] - they are located in the [facility] at [address] [facility] in [place] - phone number is [phone] . Hypertension - well controlled - continue [...] but would like to be seen in [place] to avoid excessive travel. . Diabetes Mellitus - NOT WELL CONTROLLED-HAVING [...]
--- OUTSIDE RECORDS SUMMARY | 2019-02-16 19:13 | XMS REPORT | CCD ---
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 Name Role Phone PP Unavailable CCM Unavailable Summary Purpose Interface Exchange Insurance Providers Payer name Policy type / Coverage type Covered constitution party ID Effective Begin Date Effective End Date WPS Medicare Part B [id number] 2015 Unknown [facility] Assistance [id number] 2015 Unknown Family history Mother Diagnosis Age At Onset Anemia Unknown Stroke Unknown Arthritis Unknown Hypertension Unknown Father Diagnosis Age At Onset Cancer Unknown Social History Social History Element Codes Description Effective Dates Marital status Unknown 01/02/2015 Number of children Unknown 3 01/02/2015 Employment Unknown Retired 01/02/[address]: 7219553 Quit over 10 years ago 25 years ago 01/02/[address]: 467603626 Never drinks alcohol 01/02/2015 Allergies, Adverse Reactions, Alerts Substance Reaction Codes Entered Date Inactivated Date Status * NO KNOWN FOOD ALLERGIES Unknown 01/02/2015 No Inactive Date Active SULFA(SULFONAMIDE ANTIBIOTICS) Unknown 01/02/2015 No Inactive Date Active Past Medical History Illness Codes Condition Status Onset Date Resolved Date Chronic kidney disease, stage 4 (severe) ICD-9: [...] ICD-9: 530.81 ICD-10: K21.9 Active 07/07/2016 Unknown Dysuria ICD-9: 788.1 ICD-10: R30.0 Active 12/26/2015 Unknown Diabetes Unknown Active 04/07/2015 Unknown DIABETES [...] Problems Condition Codes Effective Dates Condition Status Chronic kidney disease, stage 4 (severe) ICD-9: [...] esophagitis ICD-9: 530.81 ICD-10: K21.9 07/07/2016 Active Dysuria ICD-9: 788.1 ICD-10: R30.0 12/26/2015 Active Diabetes Unknown 04/07/2015 Active DIABETES TYPE [...] Instructions Voltaren 1 % topical gel RxNorm: 592105 2 Gram(s) TOP QID 10/30/2017 No Stop Date Active Novolog 100 unit/mL subcutaneous solution RxNorm: 759065 5-10 Unit(s) SQ QID per sliding scale 07/03/2017 No Stop Date Active Novolog 100 unit/mL subcutaneous solution RxNorm: 049661 8 Unit(s) SQ at noon 09/27/2016 No Stop Date Active Novolog Flexpen 100 unit/mL subcutaneous RxNorm: 3610156 8 Unit(s) SQ at noon 09/27/2016 09/27/2016 Inactive Novolog Flexpen 100 unit/mL subcutaneous RxNorm: 7085744 8 Unit(s) SQ at noon 09/27/2016 09/26/2016 Inactive Novolog 100 unit/mL subcutaneous solution RxNorm: 049883 9 Unit(s) SQ at noon 09/27/2016 09/26/2016 Inactive Lantus 100 unit/mL subcutaneous solution RxNorm: 263431 25 Unit(s) SQ QHS 09/19/2016 No Stop Date Active Coreg 6.25 mg tablet RxNorm: 228277 2 Tablet(s) PO BID 07/08/2016 09/30/2017 Inactive Lantus Solostar 100 unit/mL (3 mL) subcutaneous insulin pen RxNorm: 009061 25 Unit(s) SQ QAM and 50 Units at bedtime 04/05/2016 05/07/2016 Inactive Synthroid 150 mcg tablet RxNorm: 361992 1 Tablet(s) PO daily 04/05/2016 07/02/2017 Inactive Lantus Solostar 100 unit/mL (3 mL) subcutaneous insulin pen RxNorm: 659369 20 Unit(s) SQ QAM and 45 Units at bedtime 01/03/2016 01/07/2016 Inactive Synthroid 125 mcg tablet RxNorm: 521710 1 Tablet(s) PO daily 12/20/2015 12/19/2015 Inactive Synthroid 125 mcg tablet RxNorm: 866484 1 Tablet(s) PO daily 12/20/2015 04/04/2016 Inactive Novolog Flexpen 100 unit/mL subcutaneous RxNorm: 3425226 15 Unit(s) SQ am and 15 units @ noon BID 11/15/2015 05/07/2016 Inactive Lantus Solostar 100 unit/mL (3 mL) subcutaneous insulin pen RxNorm: 933096 10 Unit(s) SQ QAM and 40 Units at bedtime 11/15/2015 11/19/2015 Inactive increased from 25u Coreg 6.25 mg tablet RxNorm: 138036 1.5 Tablet(s) PO BID 10/09/2015 07/07/2016 Inactive Lantus Solostar 100 unit/mL (3 mL) subcutaneous insulin pen RxNorm: 976843 35 Unit(s) SQ QHS 09/26/2015 11/14/2015 Inactive increased from 25u Novolog Flexpen 100 unit/mL subcutaneous RxNorm: 4288725 12 Unit(s) SQ am and 12 units @ noon BID 09/25/2015 11/14/2015 Inactive losartan 100 mg tablet RxNorm: 892571 1 Tablet(s) PO daily 09/21/2015 09/14/2016 Inactive Lantus Solostar 100 unit/mL (3 mL) subcutaneous insulin pen RxNorm: 163048 35 Unit(s) SQ QHS 09/21/2015 09/25/2015 Inactive Novolog Flexpen 100 unit/mL subcutaneous RxNorm: 4893358 12 Unit(s) SQ am and 12 units @ noon BID - dr to increase based on glucose readings hgba1c 10.4 09/21/2015 09/24/2015 Inactive Lantus Solostar 100 unit/mL (3 mL) subcutaneous insulin pen RxNorm: 527543 25 Unit(s) SQ QHS 08/29/2015 09/20/2015 Inactive Novolog Flexpen 100 unit/mL subcutaneous RxNorm: 1534698 8 Unit(s) SQ am and noon BID 08/29/2015 09/20/2015 Inactive Lantus Solostar 100 unit/mL (3 mL) subcutaneous insulin pen RxNorm: 127766 25 Unit(s) SQ QHS 08/25/2015 08/28/2015 Inactive losartan 50 mg tablet RxNorm: 967360 1 Tablet(s) PO daily 08/22/2015 09/20/2015 Inactive levothyroxine 125 mcg tablet RxNorm: 716233 1 Tablet(s) PO daily 01/23/2015 04/22/2015 Inactive Plavix 75 mg tablet RxNorm: 647546 1 Tablet(s) PO daily 01/02/2015 09/22/2016 Inactive Aranesp 25 mcg/mL (in polysorbate) Injection RxNorm: 054673 Milliliter(s) Inj 30mcg q 2 weeks 01/02/2015 05/08/2016 Inactive [SAVINGS FOR NON-COVERED DRUGS -- BIN:[id number], PCN: [id number], Group: [id number], ID# [id number], Questions: . THIS IS NOT INSURANCE.] aspirin 81 mg chewable tablet RxNorm: 404306 1 Tablet(s) PO daily 01/02/2015 05/07/2016 Inactive Coreg 6.25 mg tablet RxNorm: 712715 1 Tablet(s) PO BID 01/02/2015 10/08/2015 Inactive Fish Oil 300 mg-1,000 mg capsule RxNorm: 435798 2 Capsule(s) PO daily No Start Date Active sodium bicarbonate 650 mg tablet RxNorm: 150026 1 Tablet(s) PO BID No Start Date Active Crestor 40 mg tablet RxNorm: 846179 1 Tablet(s) PO daily No Start Date Active Multiple Vitamins tablet RxNorm: 1 Tablet(s) PO daily No Start Date Active Vitamin D3 2,000 unit tablet RxNorm: 602755 1 Tablet(s) PO daily No Start Date Active ferrous sulfate 325 mg (65 mg iron) tablet RxNorm: 844870 1 Tablet(s) PO daily No Start Date Active Vitamin B12 Oral RxNorm: oral No Start Date Active Aranesp 40 mcg/mL (in polysorbate) Injection RxNorm: 278644 Inject 1 Milliliter(s) SQ Every 2 weeks No Start Date Active levothyroxine 100 mcg tablet RxNorm: 986881 1 Tablet(s) PO daily No Start Date Active calcium carbonate 200 mg calcium (500 mg) chewable tablet RxNorm: 000934 1-2 Tablet(s) PO daily No Start Date Active ferrous sulfate 325 mg (65 mg iron) tablet RxNorm: 034397 1 Tablet(s) PO daily No Start Date 05/07/2016 Inactive Aranesp 25 mcg/mL (in polysorbate) Injection RxNorm: 294025 injection No Start Date 01/01/2015 Inactive lovastatin 40 mg tablet RxNorm: 518474 1 Tablet(s) PO daily No Start Date 05/07/2016 Inactive Lipitor 40 mg tablet RxNorm: 257936 1 Tablet(s) PO QHS No Start Date 01/01/2015 Inactive amlodipine 2.5 mg tablet RxNorm: 797642 1 Tablet(s) PO BID No Start Date 12/16/2014 Inactive sodium bicarbonate 325 mg tablet RxNorm: 497792 1 Tablet(s) PO BID No Start Date 05/07/2016 Inactive levothyroxine 150 mcg tablet RxNorm: 035401 1 Tablet(s) PO daily No Start Date 01/22/2015 Inactive Lantus Solostar 100 unit/mL (3 mL) subcutaneous insulin pen RxNorm: 475061 20 Unit(s) SQ QHS No Start Date 08/24/2015 Inactive Lantus 100 unit/mL subcutaneous solution RxNorm: 316067 30 Unit(s) SQ QHS No Start Date 09/18/2016 Inactive Novolog 100 unit/mL subcutaneous solution RxNorm: 779609 10 Unit(s) SQ BID in the AM and at noon No Start Date 07/02/2017 Inactive aspirin 81 mg tablet RxNorm: 587563 1 Tablet(s) PO daily No Start Date 01/01/2015 Inactive Novolog Flexpen 100 unit/mL subcutaneous RxNorm: 4786993 8 Unit(s) SQ am and noon BID No Start Date 08/28/2015 Inactive glimepiride 4 mg tablet RxNorm: 457046 1 Tablet(s) PO daily No Start Date 10/08/2015 Inactive Vitamin D3 2,000 unit capsule RxNorm: 267638 1 Capsule(s) PO daily No Start Date 05/08/2016 Inactive metoprolol tartrate 12.5 Tablet RxNorm: 1 Tablet(s) PO BID No Start Date 12/16/2014 Inactive Medication Administered No Medication Administered data Immunizations Vaccine Codes Date Status Influenza CVX: 141 06/06/2017 completed Assessments Condition Codes Effective Dates Other allergic rhinitis ICD-10: J30.89 ICD-9: 477.8 [...] without esophagitis ICD-10: K21.9 ICD-9: 530.81 07/08/2016 Dysuria ICD-10: R30.0 ICD-9: 788.1 12/27/2015 DIABETES TYPE II ICD-9: 250.00 04/07/2015 ESSENTIAL [...] Code Result Date Urinalysis Ord28 U-Color Yellow 08/24/2018 Urinalysis Ord28 [...] 94.1 fl 08/17/2018 Cbc With Differential Ord2 Carver% 9.8 % 08/17/2018 Cbc With Differential Ord2 [...] 2.14 K/ul 08/17/2018 Cbc With Differential Ord2 Carver ABS# 0.7 K/ul 08/17/2018 Cbc With Differential Ord2 Eos ABS# 0.2 K/ul 08/17/2018 Cbc With Differential Ord2 Baso ABS# 0.0 K/ul 08/17/2018 Comp Metabolic Orz519 NA 143 mEq/L 04/14/2018 Comp Metabolic Hld294 K 4.6 mEq/L 04/14/2018 Comp Metabolic Xmc293 CL 108 mEq/L 04/14/2018 Comp Metabolic Vgy977 CO2 23.0 mEq/L 04/14/2018 Comp Metabolic Ese854 ANION GAP 17 04/14/2018 Comp Metabolic Cvu678 GLUCOSE 54 mg/dL 04/14/2018 Comp Metabolic Bhs961 Creat 2.7 mg/dL 04/14/2018 Comp Metabolic Jat935 eGFR 18 ml/min/1.73m2 04/14/2018 Comp Metabolic Cjl758 BUN 45 mg/dL 04/14/2018 Comp Metabolic Ceb245 B/C Ratio 16.9 Ratio 04/14/2018 Comp Metabolic Bqe586 CALCIUM 8.3 mg/dL 04/14/2018 Comp Metabolic Smp143 ALK PHOS 113 U/L 04/14/2018 Comp Metabolic Onw003 AST(SGOT) 31 U/L 04/14/2018 Comp Metabolic Gwk814 ALT(SGPT) 33 U/L 04/14/2018 Comp Metabolic Kvi773 BILI T 0.5 mg/dL 04/14/2018 Comp Metabolic Kxk868 ALBUMIN 3.6 g/dL 04/14/2018 Comp Metabolic Oxr516 TPRO 6.5 g/dL 04/14/2018 Comp Metabolic Hyi750 GLOB 2.9 g/dL 04/14/2018 Comp Metabolic Ubz370 A/G Ratio 1.2 Ratio 04/14/2018 Comp Metabolic Cxp158 Osmo 294 mOsmo 04/14/2018 Lipid Ord30 CHOL [...] Ord28 U-Com Culture to follow 01/21/2018 %Hba1C Bmk497 % HbA1c 60841- 6 7.4 % 11/03/2017 %Hba1C Sil053 Gluc Ave 166 mg/dL 11/03/2017 Urine Culture [...] 26.3 pg 09/20/2016 Cbc With Differential Ord2 Carver% 11.3 % 09/20/2016 Cbc With Differential Ord2 [...] 1.08 K/ul 09/20/2016 Cbc With Differential Ord2 Carver ABS# 0.5 K/ul 09/20/2016 Cbc With Differential Ord2 Eos ABS# 0.2 K/ul 09/20/2016 Cbc With Differential Ord2 Baso ABS# 0.1 K/ul 09/20/2016 Comp Metabolic Ddc660 NA 141 mEq/L 09/20/2016 Comp Metabolic Bon468 K 5.9 Result Verified By Repeat Analysis mEq/L 09/20/2016 Comp Metabolic Iwm700 CL 110 mEq/L 09/20/2016 Comp Metabolic Icg048 CO2 23.0 mEq/L 09/20/2016 Comp Metabolic Rfw297 ANION GAP 14 09/20/2016 Comp Metabolic Sft525 GLUCOSE 101 mg/dL 09/20/2016 Comp Metabolic Zxf377 Creat 2.2 mg/dL 09/20/2016 Comp Metabolic Dam484 eGFR 23 ml/min/1.73m2 09/20/2016 Comp Metabolic Cwm207 BUN 49 mg/dL 09/20/2016 Comp Metabolic Vlo367 B/C Ratio 22.0 Ratio 09/20/2016 Comp Metabolic Nyr188 CALCIUM 8.7 mg/dL 09/20/2016 Comp Metabolic Cyv267 ALK PHOS 142 U/L 09/20/2016 Comp Metabolic Dyv885 AST(SGOT) 26 U/L 09/20/2016 Comp Metabolic Amm956 ALT(SGPT) 27 U/L 09/20/2016 Comp Metabolic Dxk660 BILI T 0.3 mg/dL 09/20/2016 Comp Metabolic Iaf921 ALBUMIN 4.0 g/dL 09/20/2016 Comp Metabolic Mpu423 TPRO 7.6 g/dL 09/20/2016 Comp Metabolic Mrk265 GLOB 3.6 g/dL 09/20/2016 Comp Metabolic Vtm023 A/G Ratio 1.1 Ratio 09/20/2016 Comp Metabolic Bsb136 Osmo 294 mOsmo 09/20/2016 %Hba1C Emm208 % HbA1c 38803- 6 6.7 % 09/20/2016 %Hba1C Ici791 Gluc Ave 146 mg/dL 09/20/2016 Urinalysis Ord28 [...] 05/31/2016 Urinalysis Ord28 U-Yeast NEGATIVE 05/31/2016 %Hba1C Xqe469 % HbA1c 28938- 6 13.5 % 03/28/2016 %Hba1C Gns465 Gluc Ave 341 mg/dL 03/28/2016 Tsh Ord6 hTSH II 16.02 uIU/mL 03/28/2016 Comp Metabolic Ujc981 NA 133 mEq/L 03/28/2016 Comp Metabolic Bmm934 K 5.4 mEq/L 03/28/2016 Comp Metabolic Ogj316 CL 102 mEq/L 03/28/2016 Comp Metabolic Zdt875 CO2 22.0 mEq/L 03/28/2016 Comp Metabolic Iww407 ANION GAP 14 03/28/2016 Comp Metabolic Xgt367 GLUCOSE 432 mg/dL 03/28/2016 Comp Metabolic Oxw766 Creat 1.9 mg/dL 03/28/2016 Comp Metabolic Aqm942 eGFR 27 ml/min/1.73m2 03/28/2016 Comp Metabolic Jbb725 BUN 38 mg/dL 03/28/2016 Comp Metabolic Gam642 B/C Ratio 19.6 Ratio 03/28/2016 Comp Metabolic Uke876 CALCIUM 8.9 mg/dL 03/28/2016 Comp Metabolic Awb824 ALK PHOS 84 U/L 03/28/2016 Comp Metabolic Xni724 AST(SGOT) 9 U/L 03/28/2016 Comp Metabolic Jfl840 ALT(SGPT) 6 U/L 03/28/2016 Comp Metabolic Jcq087 BILI T 0.4 mg/dL 03/28/2016 Comp Metabolic Zts424 ALBUMIN 3.6 g/dL 03/28/2016 Comp Metabolic Udt836 TPRO 6.8 g/dL 03/28/2016 Comp Metabolic Hhn205 GLOB 3.2 g/dL 03/28/2016 Comp Metabolic Xoh474 A/G Ratio 1.1 Ratio 03/28/2016 Comp Metabolic Jqo691 Osmo 294 mOsmo 03/28/2016 Free T4 Xqx600 FREE T4 0.72 ng/dL 03/28/2016 Comp Metabolic Aah360 NA 132 mEq/L 12/22/2015 Comp Metabolic Yxu933 K 4.6 mEq/L 12/22/2015 Comp Metabolic Wrj383 CL 97 mEq/L 12/22/2015 Comp Metabolic Ieq496 CO2 24.0 mEq/L 12/22/2015 Comp Metabolic Exv102 ANION GAP 16 12/22/2015 Comp Metabolic Jjv174 GLUCOSE 354 mg/dL 12/22/2015 Comp Metabolic Cec995 Creat 1.8 mg/dL 12/22/2015 Comp Metabolic Gpq939 eGFR 29 ml/min/1.73m2 12/22/2015 Comp Metabolic Jtz288 BUN 47 mg/dL 12/22/2015 Comp Metabolic Ngn647 B/C Ratio 26.3 Ratio 12/22/2015 Comp Metabolic Pqj452 CALCIUM 9.5 mg/dL 12/22/2015 Comp Metabolic Wve497 ALK PHOS 100 U/L 12/22/2015 Comp Metabolic Wpz997 AST(SGOT) 15 U/L 12/22/2015 Comp Metabolic Fzv103 ALT(SGPT) 11 U/L 12/22/2015 Comp Metabolic Smu263 BILI T 0.4 mg/dL 12/22/2015 Comp Metabolic Cox998 ALBUMIN 3.7 g/dL 12/22/2015 Comp Metabolic Gng873 TPRO 7.1 g/dL 12/22/2015 Comp Metabolic Lxi157 GLOB 3.4 g/dL 12/22/2015 Comp Metabolic Mfz473 A/G Ratio 1.1 Ratio 12/22/2015 Comp Metabolic Uki643 Osmo 291 mOsmo 12/22/2015 Microalbumin Mva091 MicroAlb 25.4 mg/dL 12/22/2015 Random Urine Protein/Creatinine Ratio Ghh2815 U Prot 63.3 mg/dl 12/22/2015 Random Urine Protein/Creatinine Ratio Esp0501 U CREAT 83.0 mg/dL 12/22/2015 Random Urine Protein/Creatinine Ratio Vin7817 R MTP/Creat Ratio 0.76 12/22/2015 %Hba1C Iqi856 % HbA1c 28251- 6 11.9 % 12/21/2015 %Hba1C Qia718 Gluc Ave 295 mg/dL 12/21/2015 Review of [...] Procedure Codes Date DESTRUCT PREMALG LESION CPT-4: 95023 10/07/2016 Vital Signs Date Vital 07/20/2018 Blood Pressure 1: 144/70 Code: 8480-6 BMI: 28.3 Code: 16498-8 Heart Rate 1: 82 bpm Height: 5'3" SpO2: 100% Weight: 160 lbs 03/05/2018 Blood Pressure 1: 144/66 Code: 8480-6 BMI: 28.7 Code: 50794-3 Heart Rate 1: 83 bpm Height: 5'3" SpO2: 99% Weight: 162 lbs 10/30/2017 Blood Pressure 1: 122/58 Code: 8480-6 BMI: 30.1 Code: 83301-9 Heart Rate 1: 78 bpm Height: 5'3" SpO2: 98% Weight: 170 lbs 07/03/2017 Blood Pressure 1: 148/78 Code: 8480-6 BMI: 29.8 Code: 90054-8 Heart Rate 1: 80 bpm Height: 5'3" SpO2: 99% Weight: 168 lbs 04/03/2017 Blood Pressure 1: 144/64 Code: 8480-6 BMI: 29.1 Code: 64305-9 Heart Rate 1: 78 bpm Height: 5'3" SpO2: 98% Weight: 164 lbs 12/31/2016 Blood Pressure 1: 138/70 Code: 8480-6 BMI: 30.3 Code: 25799-6 Heart Rate 1: 84 bpm Height: 5'3" SpO2: 90% Weight: 171 lbs 10/07/2016 Blood Pressure 1: 146/78 Code: 8480-6 BMI: 29.4 Code: 89012-5 Heart Rate 1: 73 bpm Height: 5'3" SpO2: 99% Weight: 166 lbs 09/19/2016 Blood Pressure 1: 168/76 Code: 8480-6 BMI: 29.2 Code: 08841-4 Heart Rate 1: 88 bpm Height: 5'3" SpO2: 98% Weight: 165 lbs 07/08/2016 Blood Pressure 1: 120/80 Code: 8480-6 BMI: 28.3 Code: 49943-9 Heart Rate 1: 80 bpm Height: 5'3" SpO2: 99% Weight: 160 lbs 05/08/2016 Blood Pressure 1: 138/70 Code: 8480-6 BMI: 26.9 Code: 79311-9 Heart Rate 1: 93 bpm Height: 5'3" SpO2: 98% Weight: 152 lbs 03/28/2016 Blood Pressure 1: 144/74 Code: 8480-6 BMI: 27.6 Code: 23836-6 Heart Rate 1: 85 bpm Height: 5'3" SpO2: 99% Weight: 156 lbs 01/22/2016 Blood Pressure 1: 140/82 Code: 8480-6 BMI: 28.9 Code: 20319-5 Heart Rate 1: 104 bpm Height: 5'3" SpO2: 94% Weight: 163 lbs 12/21/2015 Blood Pressure 1: 140/90 Code: 8480-6 BMI: 28.7 Code: 44383-9 Heart Rate 1: 99 bpm Height: 5'3" SpO2: 96% Weight: 162 lbs 11/06/2015 Blood Pressure 1: 110/60 Code: 8480-6 BMI: 29.8 Code: 38055-4 Heart Rate 1: 93 bpm Height: 5'3" SpO2: 98% Weight: 168 lbs 10/20/2015 Blood Pressure 1: 152/62 Code: 8480-6 BMI: 29.8 Code: 11972-0 Heart Rate 1: 86 bpm Height: 5'3" SpO2: 96% Weight: 168 lbs 10/09/2015 Blood Pressure 1: 152/60 Code: 8480-6 BMI: 30.2 Code: 66917-9 Heart Rate 1: 83 bpm Height: 5'3" SpO2: 98% Weight: 170 lbs 8 oz 09/21/2015 Blood Pressure 1: 160/74 Code: 8480-6 Blood Pressure 1: 168/72 Code: 8480-6 BMI: 29.8 Code: 86920-3 Heart Rate 1: 82 bpm Height: 5'3" SpO2: 99% Weight: 168 lbs 08/22/2015 Blood Pressure 1: 170/82 Code: 8480-6 Blood Pressure 1: 178/78 Code: 8480-6 BMI: 29.2 Code: 04283-7 Heart Rate 1: 85 bpm Height: 5'3" SpO2: 99% Weight: 165 lbs 04/07/2015 Blood Pressure 1: 140/68 Code: 8480-6 BMI: 29.9 Code: 50276-9 Heart Rate 1: 81 bpm Height: 5'3" SpO2: 99% Weight: 169 lbs 01/02/2015 Blood Pressure 1: 162/72 Code: 8480-6 BMI: 30.3 Code: 94298-0 Heart Rate 1: 88 bpm Height: 5'3" [...] at home, see scanned readings 10/07/2016 [facility] diabetes mellitus Pertinent Findings Denies dizziness 10/07/2016 [...] data Encounters Encounter Performer Location Codes Date ([id number]) [id number] EST. PATIENT, LEVEL IV Diagnosis: Type 2 diabetes mellitus with other specified complication[ICD10: E11.69] Diagnosis: Essential (primary) hypertension[ICD10: I10] Diagnosis: Other allergic rhinitis[ICD10: J30.89] Diagnosis: Chronic kidney disease, stage 4 (severe)[ICD10: N18.4] Cordelia Garg MD, [facility] CPT-4: 24828 07/20/2018 ([id number]) 40621 EST. PATIENT, LEVEL III Diagnosis: Essential (primary) hypertension[ICD10: I10] Diagnosis: Type 2 diabetes mellitus with other specified complication[ICD10: E11.69] Cordelia Garg MD, [facility] CPT-4: 91127 03/05/2018 [id number]) [id number] EST. PATIENT, LEVEL IV Diagnosis: Type 2 diabetes mellitus with hyperglycemia[ICD10: E11.65] Diagnosis: Hypothyroidism, unspecified[ICD10: E03.9] Diagnosis: Essential (primary) hypertension[ICD10: I10] Diagnosis: Chronic kidney disease, stage 4 (severe)[ICD10: N18.4] Cordelia Garg MD, [facility] CPT-4: 67937 10/30/2017 [id number]) 06248 EST. PATIENT, LEVEL IV Diagnosis: Hypothyroidism, unspecified[ICD10: E03.9] Diagnosis: Type 2 diabetes mellitus with hyperglycemia[ICD10: E11.65] Diagnosis: Essential (primary) hypertension[ICD10: I10] Diagnosis: Chronic kidney disease, stage 4 (severe)[ICD10: N18.4] Cordelia Garg MD, [facility] CPT-4: 85971 07/03/2017 ([id number]) 12618 EST. PATIENT, LEVEL III Diagnosis: Type 2 diabetes mellitus with hyperglycemia[ICD10: E11.65] Diagnosis: Essential (primary) hypertension[ICD10: I10] Diagnosis: Chronic kidney disease, stage 4 (severe)[ICD10: N18.4] Cordelia Garg MD, [facility] CPT-4: 18383 04/03/2017 ([id number]) 70004 EST. PATIENT, LEVEL III Diagnosis: Type 2 diabetes mellitus with hyperglycemia[ICD10: E11.65] Cordelia Garg MD, [facility] CPT-4: 66354 12/31/2016 ([id number]) 43651 EST. PATIENT, LEVEL II Diagnosis: Type 2 diabetes mellitus with hyperglycemia[ICD10: E11.65] Diagnosis: Essential (primary) hypertension[ICD10: I10] Diagnosis: Actinic keratosis[ICD10: L57.0] Cordelia Garg MD, [facility] CPT-4: 40431 10/07/2016 ([id number]) 35508 EST. PATIENT, LEVEL IV Diagnosis: Type 2 diabetes mellitus with hyperglycemia[ICD10: E11.65] Diagnosis: Essential (primary) hypertension[ICD10: I10] Cordelia Garg MD, [facility] CPT-4: 11691 09/19/2016 ([id number]) 03673 EST. PATIENT, LEVEL III Diagnosis: Type 2 diabetes mellitus with hyperglycemia[ICD10: E11.65] Diagnosis: Gastro-esophageal reflux disease without esophagitis[ICD10: K21.9] Cordelia Garg MD, [facility] CPT-4: 16592 07/08/2016 ([id number]) 56830 EST. PATIENT, LEVEL III Diagnosis: Type 2 diabetes mellitus with hyperglycemia[ICD10: E11.65] Riana Garg MD, [facility] CPT-4: 57040 05/08/2016 ([id number]) 39225 EST. PATIENT, LEVEL IV Diagnosis: Essential (primary) hypertension[ICD10: I10] Diagnosis: Type 2 diabetes mellitus with hyperglycemia[ICD10: E11.65] Diagnosis: Hypothyroidism, unspecified[ICD10: E03.9] Diagnosis: Chronic kidney disease, stage 4 (severe)[ICD10: N18.4] Cordelia Garg MD, [facility] CPT-4: 39873 03/28/2016 ([id number]) 43298 EST. PATIENT, LEVEL III Diagnosis: Type 2 diabetes mellitus with hyperglycemia[ICD10: E11.65] Diagnosis: Essential (primary) hypertension[ICD10: I10] Cordelia Garg MD [facility] CPT-4: 57576 01/22/2016 ([id number]) 81813 EST. PATIENT, LEVEL IV Diagnosis: Type 2 diabetes mellitus with hyperglycemia[ICD10: E11.65] Diagnosis: Hypothyroidism, unspecified[ICD10: E03.9] Diagnosis: Essential (primary) hypertension[ICD10: I10] Diagnosis: Chronic kidney disease, stage 4 (severe)[ICD10: N18.4] Riana Garg MD [facility] CPT-4: 63149 12/21/2015 ([id number]) 86776 EST. PATIENT, LEVEL III Diagnosis: Type 2 diabetes mellitus with hyperglycemia[ICD10: E11.65] Riana Garg MD [facility] CPT-4: 70000 11/06/2015 ([id number]) 61488 EST. PATIENT, LEVEL IV Diagnosis: Type 2 diabetes mellitus with hyperglycemia[ICD10: E11.65] Diagnosis: Essential (primary) hypertension[ICD10: I10] Cordelia Garg MD [facility] CPT-4: 58998 10/20/2015 ([id number]) 43205 EST. PATIENT, LEVEL IV Diagnosis: Type 2 diabetes mellitus with hyperglycemia[ICD10: E11.65] Diagnosis: Essential (primary) hypertension[ICD10: I10] Diagnosis: Actinic keratosis[ICD10: L57.0] iRana Garg MD [facility] CPT-4: 51813 10/09/2015 ([id number]) 49689 EST. PATIENT, LEVEL IV Diagnosis: Type 2 diabetes mellitus with hyperglycemia[ICD10: E11.65] Diagnosis: Essential (primary) hypertension[ICD10: I10] Riana Garg MD [facility] CPT-4: 05165 09/21/2015 ([id number]) 45212 EST. PATIENT, LEVEL IV Diagnosis: Type 2 diabetes mellitus with hyperglycemia[ICD10: E11.65] Diagnosis: Hypothyroidism, unspecified[ICD10: E03.9] Diagnosis: Essential (primary) hypertension[ICD10: I10] Riana Garg MD [facility] CPT-4: 89109 08/22/2015 ([id number]) 41006 EST. PATIENT, LEVEL IV Diagnosis: ESSENTIAL HYPERTENSION[ICD9: 401.9] Diagnosis: HYPERLIPIDEMIA[ICD9: 272.4] Diagnosis: DIABETES TYPE II[ICD9: 250.00] [facility] CPT-4: 17268 04/07/2015 ([id number]) OFFICE/OUTPATIENT VISIT NEW Diagnosis: ESSENTIAL HYPERTENSION[ICD9: 401.9] Diagnosis: Diabetes mellitus out of control[ICD9: 250.02] Diagnosis: HYPOTHYROIDISM[ICD9: 244.9] Diagnosis: HYPERLIPIDEMIA[ICD9: 272.4] [facility] CPT-4: 27444 01/02/2015 Plan of Care Planned Activity Notes [...] starting to become less controlled. CKD-patient sees employment specialist-has decided not to do dialysis right now Allergies-rx for flonase 07/20/2018 Appointment: Cordelia Kumar WPtel: [address] [place], [place] [phone] (15 min) Moderate 07/20/2018 Patient Education: Patient [...] less controlled. 03/05/2018 [phone] [phone] [facility] Complex 03/05/2018 Patient Education: [...] gel 10/30/2017 [facility]ment[phone] [phone] ([facility] min) Complex 10/30/2017 Patient Education: Patient [...] starting to become less controlled. Left thumb [id number] voltaren gel if symptoms persist 07/03/2017 Appointment: Cordelia Kumar WPtel: [phone] [facility] min[facility] 07/03/2017 Patient Education: Patient Medication Summary [...] to become less controlled. Chronic renal disease-sees employment specialist and also commercial credit specialist for management of anemia 04/03/2017 Visit Plan: [...] to become less controlled. Chronic renal disease-sees employment specialist and also commercial credit specialist for management of anemia 04/03/2017 Appointment: Cordelia Kumar WPtel: [phone] [phone] (30 min) Complex 04/03/2017 Patient [...] controlled. 12/31/2016 Appointment: Cordelia Kumar WPtel: [phone] [phone] (30 min) Complex 12/31/2016 Patient Education: Patient [...] acute concerns. 10/07/2016 Appointment: Cordelia Kumar WPtel: [facility] [place] [place] [address] (30 min) Complex 10/07/2016 Appointment: Cordelia Kumar WPtel: [phone] [facility] [place] [address] (30 min) Complex 10/07/2016 Patient Education: Patient [...] at home. 09/19/2016 Appointment: Cord[facility] [id number] [place] [address] (30 min) Complex 09/19/2016 Patient Education: Patient [...] Summary Completed 07/08/2016 Appointment: Cordelia Kumar WPtel: [address] [place], [place] [id number] (30 min) Complex 06/20/2016 Visit Plan: Diabetes [...] Patient has since moved to [facility] since this office visit. They are [...] stage 4- patient to make appt with [facility] 03/28/2016 Visit Plan: Hypertension - [...] stage 4- patient to make appt with [facility] Addendum: Patient noncompliant with blood sugar logs-she has been instructed to test QID but only tests daily- she did not bring her log for review today.- Patient has since moved to [facility] and they are checking her blood [...] Patient has since moved to [facility] since this office visit. They are checking her blood sugars AC and HS and she is on a sliding scale to control her d iabetes. 03/28/2016 Patient Education: Patient Medication Summary Completed 03/28/2016 [phone] ([facility] min) Complex 03/26/2016 [facility]: [phone] (30 min) Complex 02/20/2016 Visit Plan: [...] at home. 01/22/2016 Appointment: José Cordelia WPtel: [id number] ([facility] min) [facility] 01/22/2016 Patient Education: Patient Medication Summary [...] pt has been seeing a group in [facility] but would like to be seen in [place] to avoid excessive travel. 12/21/2015 Visit Plan: [...] 12/21/2015 [facility]ment: [id number] (15 min) Moderate 12/18/2015 Visit Plan: [...] dications. 04/07/2015 Appointment: [facility]arg [id number] Follow up 04/07/2015 Patient Education: Patient [...] control. 01/02/2015 Appointment: R[facility]arg [id number] [place] ([place] New Patient [...] change in blood pressure readings at home. Next time you have an appt - please bring in your blood glucose log sheet Dr. Garg will send a referral today to the [facility] - they are located in the [facility] at [address] [place] [address] - phone number is [phone] . Hypertension - well controlled - continue [...] pt has been seeing a group in [facility] - but would like to be seen in [place] to avoid excessive travel. Next time you have an appt - please bring in your blood glucose log sheet Dr. Garg will send a referral today to the [facility] - they are located in the [facility] at [address] [place] [address] - phone number is [phone] . Hypertension - well controlled - continue [...] disease stage 4-patient to make appt with [facility] Addendum: Patient noncompliant with blood sugar logs-she has been instructed to test QID but only tests daily-she did not bring her log for review today.- Patient has since moved to [facility] since this office visit. They are [...] disease stage 4-patient to make appt with [facility] . Hypertension - well controlled [...] disease stage 4-patient to make appt with [facility] Addendum: Patient noncompliant with blood sugar logs-she has been instructed to test QID but only tests daily-she did not bring her log for review today.- Patient has since moved to [facility] and they are checking her blood [...] disease stage 4-patient to make appt with [facility] Addendum: Patient has since moved to [facility] since this office visit. They are [...] to become less controlled. Chronic renal disease-sees employment specialist and also commercial credit specialist for management of anemia . Hypertension - [...] to become less controlled. Chronic renal disease-sees employment specialist and also commercial credit specialist for management of anemia . Diabetes Mellitus [...] starting to become less controlled. CKD-patient sees employment specialist-has decided not to do dialysis right now [...] starting to become less controlled. Left thumb ltoi-pekjnue-bjuhyzsct voltaren gel if symptoms persist . Hypertension [...] increase losartan to 100mg daily will have [facility] fax over blood sugar [...]
[2019-02-16] MEDS ORDERED: CEPH-507 PO (19:15)
--- OUTSIDE RECORDS SUMMARY | 2019-02-16 19:16 | XMS REPORT | CCD ---
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 Name Role Phone PP Unavailable CCM Unavailable Summary Purpose Interface Exchange Insurance Providers Payer name Policy type / Coverage type Covered republican ID Effective Begin Date Effective End Date WPS Medicare Part B [id number] 2015 Unknown [facility] Assistance [id number] 2015 Unknown Family history Mother Diagnosis Age At Onset Anemia Unknown Stroke Unknown Arthritis Unknown Hypertension Unknown Father Diagnosis Age At Onset Cancer Unknown Social History Social History Element Codes Description Effective Dates Marital status Unknown 01/02/2015 Number of children Unknown 3 01/02/2015 Employment Unknown Retired 01/02/[address]: 3938606 Quit over 10 years ago 25 years ago 01/02/[address]: 085364420 Never drinks alcohol 01/02/2015 Allergies, Adverse Reactions, [...] Instructions Voltaren 1 % topical gel RxNorm: 623507 2 Gram(s) TOP QID 10/30/2017 No Stop Date Active Novolog 100 unit/mL subcutaneous solution RxNorm: 346295 5-10 Unit(s) SQ QID per sliding scale 07/03/2017 No Stop Date Active Novolog 100 unit/mL subcutaneous solution RxNorm: 816783 8 Unit(s) SQ at noon 09/27/2016 No Stop Date Active Novolog Flexpen 100 unit/mL subcutaneous RxNorm: 2759844 8 Unit(s) SQ at noon 09/27/2016 09/27/2016 Inactive Novolog Flexpen 100 unit/mL subcutaneous RxNorm: 3441035 8 Unit(s) SQ at noon 09/27/2016 09/26/2016 Inactive Novolog 100 unit/mL subcutaneous solution RxNorm: 257323 9 Unit(s) SQ at noon 09/27/2016 09/26/2016 Inactive Lantus 100 unit/mL subcutaneous solution RxNorm: 642137 25 Unit(s) SQ QHS 09/19/2016 No Stop Date Active Coreg 6.25 mg tablet RxNorm: 718967 2 Tablet(s) PO BID 07/08/2016 09/30/2017 Inactive Lantus Solostar 100 unit/mL (3 mL) subcutaneous insulin pen RxNorm: 784051 25 Unit(s) SQ QAM and 50 Units at bedtime 04/05/2016 05/07/2016 Inactive Synthroid 150 mcg tablet RxNorm: 301645 1 Tablet(s) PO daily 04/05/2016 07/02/2017 Inactive Lantus Solostar 100 unit/mL (3 mL) subcutaneous insulin pen RxNorm: 035612 20 Unit(s) SQ QAM and 45 Units at bedtime 01/03/2016 01/07/2016 Inactive Synthroid 125 mcg tablet RxNorm: 318338 1 Tablet(s) PO daily 12/20/2015 12/19/2015 Inactive Synthroid 125 mcg tablet RxNorm: 294810 1 Tablet(s) PO daily 12/20/2015 04/04/2016 Inactive Novolog Flexpen 100 unit/mL subcutaneous RxNorm: 8124727 15 Unit(s) SQ am and 15 units @ noon BID 11/15/2015 05/07/2016 Inactive Lantus Solostar 100 unit/mL (3 mL) subcutaneous insulin pen RxNorm: 376548 10 Unit(s) SQ QAM and 40 Units at bedtime 11/15/2015 11/19/2015 Inactive increased from 25u Coreg 6.25 mg tablet RxNorm: 709187 1.5 Tablet(s) PO BID 10/09/2015 07/07/2016 Inactive Lantus Solostar 100 unit/mL (3 mL) subcutaneous insulin pen RxNorm: 627752 35 Unit(s) SQ QHS 09/26/2015 11/14/2015 Inactive increased from 25u Novolog Flexpen 100 unit/mL subcutaneous RxNorm: 4892350 12 Unit(s) SQ am and 12 units @ noon BID 09/25/2015 11/14/2015 Inactive losartan 100 mg tablet RxNorm: 916103 1 Tablet(s) PO daily 09/21/2015 09/14/2016 Inactive Lantus Solostar 100 unit/mL (3 mL) subcutaneous insulin pen RxNorm: 568369 35 Unit(s) SQ QHS 09/21/2015 09/25/2015 Inactive Novolog Flexpen 100 unit/mL subcutaneous RxNorm: 6172155 12 Unit(s) SQ am and 12 units @ noon BID - dr to increase based on glucose readings hgba1c 10.4 09/21/2015 09/24/2015 Inactive Lantus Solostar 100 unit/mL (3 mL) subcutaneous insulin pen RxNorm: 395592 25 Unit(s) SQ QHS 08/29/2015 09/20/2015 Inactive Novolog Flexpen 100 unit/mL subcutaneous RxNorm: 4218349 8 Unit(s) SQ am and noon BID 08/29/2015 09/20/2015 Inactive Lantus Solostar 100 unit/mL (3 mL) subcutaneous insulin pen RxNorm: 247796 25 Unit(s) SQ QHS 08/25/2015 08/28/2015 Inactive losartan 50 mg tablet RxNorm: 304924 1 Tablet(s) PO daily 08/22/2015 09/20/2015 Inactive levothyroxine 125 mcg tablet RxNorm: 148086 1 Tablet(s) PO daily 01/23/2015 04/22/2015 Inactive Plavix 75 mg tablet RxNorm: 660539 1 Tablet(s) PO daily 01/02/2015 09/22/2016 Inactive Aranesp 25 mcg/mL (in polysorbate) Injection RxNorm: 845250 Milliliter(s) Inj 30mcg q 2 weeks 01/02/2015 05/08/2016 Inactive [SAVINGS FOR NON-COVERED DRUGS -- BIN:[id number], PCN: [id number], Group: XXXXX, ID# [id number], Questions: . THIS IS NOT INSURANCE.] aspirin 81 mg chewable tablet RxNorm: 540431 1 Tablet(s) PO daily 01/02/2015 05/07/2016 Inactive Coreg 6.25 mg tablet RxNorm: 164718 1 Tablet(s) PO BID 01/02/2015 10/08/2015 Inactive Fish Oil 300 mg-1,000 mg capsule RxNorm: 388863 2 Capsule(s) PO daily No Start Date Active sodium bicarbonate 650 mg tablet RxNorm: 182103 1 Tablet(s) PO BID No Start Date Active Crestor 40 mg tablet RxNorm: 785443 1 Tablet(s) PO daily No Start Date Active Multiple Vitamins tablet RxNorm: 1 Tablet(s) PO daily No Start Date Active Vitamin D3 2,000 unit tablet RxNorm: 919421 1 Tablet(s) PO daily No Start Date Active ferrous sulfate 325 mg (65 mg iron) tablet RxNorm: 445840 1 Tablet(s) PO daily No Start Date Active Vitamin B12 Oral RxNorm: oral No Start Date Active Aranesp 40 mcg/mL (in polysorbate) Injection RxNorm: 271244 Inject 1 Milliliter(s) SQ Every 2 weeks No Start Date Active levothyroxine 100 mcg tablet RxNorm: 362090 1 Tablet(s) PO daily No Start Date Active calcium carbonate 200 mg calcium (500 mg) chewable tablet RxNorm: 207148 1-2 Tablet(s) PO daily No Start Date Active ferrous sulfate 325 mg (65 mg iron) tablet RxNorm: 104571 1 Tablet(s) PO daily No Start Date 05/07/2016 Inactive Aranesp 25 mcg/mL (in polysorbate) Injection RxNorm: 909866 injection No Start Date 01/01/2015 Inactive lovastatin 40 mg tablet RxNorm: 361222 1 Tablet(s) PO daily No Start Date 05/07/2016 Inactive Lipitor 40 mg tablet RxNorm: 814320 1 Tablet(s) PO QHS No Start Date 01/01/2015 Inactive amlodipine 2.5 mg tablet RxNorm: 063491 1 Tablet(s) PO BID No Start Date 12/16/2014 Inactive sodium bicarbonate 325 mg tablet RxNorm: 396313 1 Tablet(s) PO BID No Start Date 05/07/2016 Inactive levothyroxine 150 mcg tablet RxNorm: 353189 1 Tablet(s) PO daily No Start Date 01/22/2015 Inactive Lantus Solostar 100 unit/mL (3 mL) subcutaneous insulin pen RxNorm: 006082 20 Unit(s) SQ QHS No Start Date 08/24/2015 Inactive Lantus 100 unit/mL subcutaneous solution RxNorm: 001436 30 Unit(s) SQ QHS No Start Date 09/18/2016 Inactive Novolog 100 unit/mL subcutaneous solution RxNorm: 631092 10 Unit(s) SQ BID in the AM and at noon No Start Date 07/02/2017 Inactive aspirin 81 mg tablet RxNorm: 474980 1 Tablet(s) PO daily No Start Date 01/01/2015 Inactive Novolog Flexpen 100 unit/mL subcutaneous RxNorm: 8932302 8 Unit(s) SQ am and noon BID No Start Date 08/28/2015 Inactive glimepiride 4 mg tablet RxNorm: 627592 1 Tablet(s) PO daily No Start Date 10/08/2015 Inactive Vitamin D3 2,000 unit capsule RxNorm: 056196 1 Capsule(s) PO daily No Start Date [...] Result Date Cbc With Differential Ord2 WBC 7.06 K/ul 08/17/2018 Cbc With Differential Ord2 RBC 3.40 M/ul 08/17/2018 Cbc With Differential Ord2 HGB 10.1 g/dl 08/17/2018 Cbc With Differential Ord2 Neut% 56.8 % 08/17/2018 Cbc With Differential Ord2 HCT 32.0 % 08/17/2018 Cbc With Differential Ord2 Lymph% 30.3 % 08/17/2018 Cbc With Differential Ord2 MCV 94.1 fl 08/17/2018 Cbc With Differential Ord2 Benzie% 9.8 % 08/17/2018 Cbc With Differential Ord2 [...] 2.14 K/ul 08/17/2018 Cbc With Differential Ord2 Benzie ABS# 0.7 K/ul 08/17/2018 Cbc With Differential Ord2 Eos ABS# 0.2 K/ul 08/17/2018 Cbc With Differential Ord2 Baso ABS# 0.0 K/ul 08/17/2018 Comp Metabolic Rlj161 NA 143 mEq/L 04/14/2018 Comp Metabolic Chx104 K 4.6 mEq/L 04/14/2018 Comp Metabolic Lrp361 CL 108 mEq/L 04/14/2018 Comp Metabolic Atz853 CO2 23.0 mEq/L 04/14/2018 Comp Metabolic Ejm915 ANION GAP 17 04/14/2018 Comp Metabolic Lxf771 GLUCOSE 54 mg/dL 04/14/2018 Comp Metabolic Fex553 Creat 2.7 mg/dL 04/14/2018 Comp Metabolic Eyj247 eGFR 18 ml/min/1.73m2 04/14/2018 Comp Metabolic Tim997 BUN 45 mg/dL 04/14/2018 Comp Metabolic Lyg760 B/C Ratio 16.9 Ratio 04/14/2018 Comp Metabolic Jcc152 CALCIUM 8.3 mg/dL 04/14/2018 Comp Metabolic Ijw226 ALK PHOS 113 U/L 04/14/2018 Comp Metabolic Ckg878 AST(SGOT) 31 U/L 04/14/2018 Comp Metabolic Feb863 ALT(SGPT) 33 U/L 04/14/2018 Comp Metabolic Sip936 BILI T 0.5 mg/dL 04/14/2018 Comp Metabolic Poz468 ALBUMIN 3.6 g/dL 04/14/2018 Comp Metabolic Rys703 TPRO 6.5 g/dL 04/14/2018 Comp Metabolic Sih787 GLOB 2.9 g/dL 04/14/2018 Comp Metabolic Rpk744 A/G Ratio 1.2 Ratio 04/14/2018 Comp Metabolic Ear551 Osmo 294 mOsmo 04/14/2018 Lipid Ord30 CHOL [...] Ord28 U-Com Culture to follow 01/21/2018 %Hba1C Udy758 % HbA1c 13445- 6 7.4 % 11/03/2017 %Hba1C Cnf673 Gluc Ave 166 mg/dL 11/03/2017 Urine Culture [...] 26.3 pg 09/20/2016 Cbc With Differential Ord2 Benzie% 11.3 % 09/20/2016 Cbc With Differential Ord2 [...] 1.08 K/ul 09/20/2016 Cbc With Differential Ord2 Benzie ABS# 0.5 K/ul 09/20/2016 Cbc With Differential Ord2 Eos ABS# 0.2 K/ul 09/20/2016 Cbc With Differential Ord2 Baso ABS# 0.1 K/ul 09/20/2016 Comp Metabolic Ips603 NA 141 mEq/L 09/20/2016 Comp Metabolic Bmt864 K 5.9 Result Verified By Repeat Analysis mEq/L 09/20/2016 Comp Metabolic Fne057 CL 110 mEq/L 09/20/2016 Comp Metabolic Wjx582 CO2 23.0 mEq/L 09/20/2016 Comp Metabolic Esw457 ANION GAP 14 09/20/2016 Comp Metabolic Tgv547 GLUCOSE 101 mg/dL 09/20/2016 Comp Metabolic Tdk294 Creat 2.2 mg/dL 09/20/2016 Comp Metabolic Zng239 eGFR 23 ml/min/1.73m2 09/20/2016 Comp Metabolic Ijn008 BUN 49 mg/dL 09/20/2016 Comp Metabolic Edo507 B/C Ratio 22.0 Ratio 09/20/2016 Comp Metabolic Pjc586 CALCIUM 8.7 mg/dL 09/20/2016 Comp Metabolic Piu608 ALK PHOS 142 U/L 09/20/2016 Comp Metabolic Hop794 AST(SGOT) 26 U/L 09/20/2016 Comp Metabolic Rby309 ALT(SGPT) 27 U/L 09/20/2016 Comp Metabolic Kqt261 BILI T 0.3 mg/dL 09/20/2016 Comp Metabolic Hom762 ALBUMIN 4.0 g/dL 09/20/2016 Comp Metabolic Rzp658 TPRO 7.6 g/dL 09/20/2016 Comp Metabolic Ybc386 GLOB 3.6 g/dL 09/20/2016 Comp Metabolic Bbj039 A/G Ratio 1.1 Ratio 09/20/2016 Comp Metabolic Dqy878 Osmo 294 mOsmo 09/20/2016 %Hba1C Tbk478 % HbA1c 26189- 6 6.7 % 09/20/2016 %Hba1C Crm843 Gluc Ave 146 mg/dL 09/20/2016 Urinalysis Ord28 [...] 05/31/2016 Urinalysis Ord28 U-Yeast NEGATIVE 05/31/2016 %Hba1C Qrp657 % HbA1c 30615- 6 13.5 % 03/28/2016 %Hba1C Jic649 Gluc Ave 341 mg/dL 03/28/2016 Tsh Ord6 hTSH II 16.02 uIU/mL 03/28/2016 Comp Metabolic Kok911 NA 133 mEq/L 03/28/2016 Comp Metabolic Axu995 K 5.4 mEq/L 03/28/2016 Comp Metabolic Xou679 CL 102 mEq/L 03/28/2016 Comp Metabolic Hsv597 CO2 22.0 mEq/L 03/28/2016 Comp Metabolic Ngy520 ANION GAP 14 03/28/2016 Comp Metabolic Dhh069 GLUCOSE 432 mg/dL 03/28/2016 Comp Metabolic Bjh961 Creat 1.9 mg/dL 03/28/2016 Comp Metabolic Doh988 eGFR 27 ml/min/1.73m2 03/28/2016 Comp Metabolic Dvd608 BUN 38 mg/dL 03/28/2016 Comp Metabolic Nnl368 B/C Ratio 19.6 Ratio 03/28/2016 Comp Metabolic Ljf836 CALCIUM 8.9 mg/dL 03/28/2016 Comp Metabolic Shg022 ALK PHOS 84 U/L 03/28/2016 Comp Metabolic Arn954 AST(SGOT) 9 U/L 03/28/2016 Comp Metabolic Izx598 ALT(SGPT) 6 U/L 03/28/2016 Comp Metabolic Kci507 BILI T 0.4 mg/dL 03/28/2016 Comp Metabolic Lwj795 ALBUMIN 3.6 g/dL 03/28/2016 Comp Metabolic Rvw019 TPRO 6.8 g/dL 03/28/2016 Comp Metabolic Wzp085 GLOB 3.2 g/dL 03/28/2016 Comp Metabolic Vsk937 A/G Ratio 1.1 Ratio 03/28/2016 Comp Metabolic Flk877 Osmo 294 mOsmo 03/28/2016 Free T4 Vre958 FREE T4 0.72 ng/dL 03/28/2016 Comp Metabolic Pyc579 NA 132 mEq/L 12/22/2015 Comp Metabolic Taw724 K 4.6 mEq/L 12/22/2015 Comp Metabolic Lwo178 CL 97 mEq/L 12/22/2015 Comp Metabolic Uug151 CO2 24.0 mEq/L 12/22/2015 Comp Metabolic Oai653 ANION GAP 16 12/22/2015 Comp Metabolic Mhh841 GLUCOSE 354 mg/dL 12/22/2015 Comp Metabolic Kfs584 Creat 1.8 mg/dL 12/22/2015 Comp Metabolic Mgg477 eGFR 29 ml/min/1.73m2 12/22/2015 Comp Metabolic Mot032 BUN 47 mg/dL 12/22/2015 Comp Metabolic Hrw900 B/C Ratio 26.3 Ratio 12/22/2015 Comp Metabolic Wbt347 CALCIUM 9.5 mg/dL 12/22/2015 Comp Metabolic Ewi149 ALK PHOS 100 U/L 12/22/2015 Comp Metabolic Wka358 AST(SGOT) 15 U/L 12/22/2015 Comp Metabolic Imn672 ALT(SGPT) 11 U/L 12/22/2015 Comp Metabolic Xsz728 BILI T 0.4 mg/dL 12/22/2015 Comp Metabolic Slw980 ALBUMIN 3.7 g/dL 12/22/2015 Comp Metabolic Tvh215 TPRO 7.1 g/dL 12/22/2015 Comp Metabolic Dfs213 GLOB 3.4 g/dL 12/22/2015 Comp Metabolic Uzb557 A/G Ratio 1.1 Ratio 12/22/2015 Comp Metabolic Qwk740 Osmo 291 mOsmo 12/22/2015 Microalbumin Ttj995 MicroAlb 25.4 mg/dL 12/22/2015 Random Urine Protein/Creatinine Ratio Qzj5873 U Prot 63.3 mg/dl 12/22/2015 Random Urine Protein/Creatinine Ratio Voz6704 U CREAT 83.0 mg/dL 12/22/2015 Random Urine Protein/Creatinine Ratio Ofu7982 R MTP/Creat Ratio 0.76 12/22/2015 %Hba1C Qzl924 % HbA1c 13192- 6 11.9 % 12/21/2015 %Hba1C Nrk449 Gluc Ave 295 mg/dL 12/21/2015 Review of [...] Procedure Codes Date DESTRUCT PREMALG LESION CPT-4: 75947 10/07/2016 Vital Signs Date Vital 07/20/2018 Blood Pressure 1: 144/70 Code: 8480-6 BMI: 28.3 Code: 53727-6 Heart Rate 1: 82 bpm Height: 5'3" SpO2: 100% Weight: 160 lbs 03/05/2018 Blood Pressure 1: 144/66 Code: 8480-6 BMI: 28.7 Code: 69165-3 Heart Rate 1: 83 bpm Height: 5'3" SpO2: 99% Weight: 162 lbs 10/30/2017 Blood Pressure 1: 122/58 Code: 8480-6 BMI: 30.1 Code: 80616-5 Heart Rate 1: 78 bpm Height: 5'3" SpO2: 98% Weight: 170 lbs 07/03/2017 Blood Pressure 1: 148/78 Code: 8480-6 BMI: 29.8 Code: 86797-8 Heart Rate 1: 80 bpm Height: 5'3" SpO2: 99% Weight: 168 lbs 04/03/2017 Blood Pressure 1: 144/64 Code: 8480-6 BMI: 29.1 Code: 66448-4 Heart Rate 1: 78 bpm Height: 5'3" SpO2: 98% Weight: 164 lbs 12/31/2016 Blood Pressure 1: 138/70 Code: 8480-6 BMI: 30.3 Code: 80235-1 Heart Rate 1: 84 bpm Height: 5'3" SpO2: 90% Weight: 171 lbs 10/07/2016 Blood Pressure 1: 146/78 Code: 8480-6 BMI: 29.4 Code: 24173-5 Heart Rate 1: 73 bpm Height: 5'3" SpO2: 99% Weight: 166 lbs 09/19/2016 Blood Pressure 1: 168/76 Code: 8480-6 BMI: 29.2 Code: 49020-6 Heart Rate 1: 88 bpm Height: 5'3" SpO2: 98% Weight: 165 lbs 07/08/2016 Blood Pressure 1: 120/80 Code: 8480-6 BMI: 28.3 Code: 22330-9 Heart Rate 1: 80 bpm Height: 5'3" SpO2: 99% Weight: 160 lbs 05/08/2016 Blood Pressure 1: 138/70 Code: 8480-6 BMI: 26.9 Code: 43239-2 Heart Rate 1: 93 bpm Height: 5'3" SpO2: 98% Weight: 152 lbs 03/28/2016 Blood Pressure 1: 144/74 Code: 8480-6 BMI: 27.6 Code: 91738-1 Heart Rate 1: 85 bpm Height: 5'3" SpO2: 99% Weight: 156 lbs 01/22/2016 Blood Pressure 1: 140/82 Code: 8480-6 BMI: 28.9 Code: 30809-4 Heart Rate 1: 104 bpm Height: 5'3" SpO2: 94% Weight: 163 lbs 12/21/2015 Blood Pressure 1: 140/90 Code: 8480-6 BMI: 28.7 Code: 76671-9 Heart Rate 1: 99 bpm Height: 5'3" SpO2: 96% Weight: 162 lbs 11/06/2015 Blood Pressure 1: 110/60 Code: 8480-6 BMI: 29.8 Code: 25582-1 Heart Rate 1: 93 bpm Height: 5'3" SpO2: 98% Weight: 168 lbs 10/20/2015 Blood Pressure 1: 152/62 Code: 8480-6 BMI: 29.8 Code: 74617-5 Heart Rate 1: 86 bpm Height: 5'3" SpO2: 96% Weight: 168 lbs 10/09/2015 Blood Pressure 1: 152/60 Code: 8480-6 BMI: 30.2 Code: 59278-3 Heart Rate 1: 83 bpm Height: 5'3" SpO2: 98% Weight: 170 lbs 8 oz 09/21/2015 Blood Pressure 1: 160/74 Code: 8480-6 Blood Pressure 1: 168/72 Code: 8480-6 BMI: 29.8 Code: 07317-7 Heart Rate 1: 82 bpm Height: 5'3" SpO2: 99% Weight: 168 lbs 08/22/2015 Blood Pressure 1: 170/82 Code: 8480-6 Blood Pressure 1: 178/78 Code: 8480-6 BMI: 29.2 Code: 60273-7 Heart Rate 1: 85 bpm Height: 5'3" SpO2: 99% Weight: 165 lbs 04/07/2015 Blood Pressure 1: 140/68 Code: 8480-6 BMI: 29.9 Code: 62403-1 Heart Rate 1: 81 bpm Height: 5'3" SpO2: 99% Weight: 169 lbs 01/02/2015 Blood Pressure 1: 162/72 Code: 8480-6 BMI: 30.3 Code: 37820-1 Heart Rate 1: 88 bpm Height: 5'3" [...] data Encounters Encounter Performer Location Codes Date ([id number]) [id number] EST. PATIENT, LEVEL IV Diagnosis: Type 2 diabetes mellitus with other specified complication[ICD10: E11.69] Diagnosis: Essential (primary) hypertension[ICD10: I10] Diagnosis: Other allergic rhinitis[ICD10: J30.89] Diagnosis: Chronic kidney disease, stage 4 (severe)[ICD10: N18.4] Cordelia Garg MD, [facility] CPT-4: 86067 07/20/2018 ([id number]) 79973 EST. PATIENT, LEVEL III Diagnosis: Essential (primary) hypertension[ICD10: I10] Diagnosis: Type 2 diabetes mellitus with other specified complication[ICD10: E11.69] Cordelia Garg MD, [facility] CPT-4: 62705 03/05/2018 [id number]) 67870 EST. PATIENT, LEVEL IV Diagnosis: Type 2 diabetes mellitus with hyperglycemia[ICD10: E11.65] Diagnosis: Hypothyroidism, unspecified[ICD10: E03.9] Diagnosis: Essential (primary) hypertension[ICD10: I10] Diagnosis: Chronic kidney disease, stage 4 (severe)[ICD10: N18.4] Cordelia Garg MD, [facility] CPT-4: 22991 10/30/2017 [id number] EST. PATIENT, LEVEL IV Diagnosis: Hypothyroidism, unspecified[ICD10: E03.9] Diagnosis: Type 2 diabetes mellitus with hyperglycemia[ICD10: E11.65] Diagnosis: Essential (primary) hypertension[ICD10: I10] Diagnosis: Chronic kidney disease, stage 4 (severe)[ICD10: N18.4] Cordelia Garg MD [facility] CPT-4: 33700 07/03/2017 ([id number]) 05535 EST. PATIENT, LEVEL III Diagnosis: Type 2 diabetes mellitus with hyperglycemia[ICD10: E11.65] Diagnosis: Essential (primary) hypertension[ICD10: I10] Diagnosis: Chronic kidney disease, stage 4 (severe)[ICD10: N18.4] Cordelia Garg MD [facility] CPT-4: 10231 04/03/2017 ([id number]) 65262 EST. PATIENT, LEVEL III Diagnosis: Type 2 diabetes mellitus with hyperglycemia[ICD10: E11.65] Cordelia Garg MD [facility] CPT-4: 89194 12/31/2016 ([id number]) 53349 EST. PATIENT, LEVEL II Diagnosis: Type 2 diabetes mellitus with hyperglycemia[ICD10: E11.65] Diagnosis: Essential (primary) hypertension[ICD10: I10] Diagnosis: Actinic keratosis[ICD10: L57.0] Cordelia Garg MD [facility] CPT-4: 43701 10/07/2016 ([id number]) 58551 EST. PATIENT, LEVEL IV Diagnosis: Type 2 diabetes mellitus with hyperglycemia[ICD10: E11.65] Diagnosis: Essential (primary) hypertension[ICD10: I10] Cordelia Garg MD [facility] CPT-4: 67175 09/19/2016 ([id number]) 95622 EST. PATIENT, LEVEL III Diagnosis: Type 2 diabetes mellitus with hyperglycemia[ICD10: E11.65] Diagnosis: Gastro-esophageal reflux disease without esophagitis[ICD10: K21.9] Cordelia Garg MD [facility] CPT-4: 57675 07/08/2016 ([id number]) 24918 EST. PATIENT, LEVEL III Diagnosis: Type 2 diabetes mellitus with hyperglycemia[ICD10: E11.65] Riana Garg MD [facility] CPT-4: 88057 05/08/2016 ([id number]) 12368 EST. PATIENT, LEVEL IV Diagnosis: Essential (primary) hypertension[ICD10: I10] Diagnosis: Type 2 diabetes mellitus with hyperglycemia[ICD10: E11.65] Diagnosis: Hypothyroidism, unspecified[ICD10: E03.9] Diagnosis: Chronic kidney disease, stage 4 (severe)[ICD10: N18.4] Cordelia Garg MD, [facility] CPT-4: 71853 03/28/2016 ([id number]) 37848 EST. PATIENT, LEVEL III Diagnosis: Type 2 diabetes mellitus with hyperglycemia[ICD10: E11.65] Diagnosis: Essential (primary) hypertension[ICD10: I10] Cordelia Garg MD, [facility] CPT-4: 40494 01/22/2016 ([id number]) 56056 EST. PATIENT, LEVEL IV Diagnosis: Type 2 diabetes mellitus with hyperglycemia[ICD10: E11.65] Diagnosis: Hypothyroidism, unspecified[ICD10: E03.9] Diagnosis: Essential (primary) hypertension[ICD10: I10] Diagnosis: Chronic kidney disease, stage 4 (severe)[ICD10: N18.4] Riana Garg MD, [facility] CPT-4: 55437 12/21/2015 ([id number]) 56476 EST. PATIENT, LEVEL III Diagnosis: Type 2 diabetes mellitus with hyperglycemia[ICD10: E11.65] Riana Garg MD, [facility] CPT-4: 77450 11/06/2015 ([id number]) 64583 EST. PATIENT, LEVEL IV Diagnosis: Type 2 diabetes mellitus with hyperglycemia[ICD10: E11.65] Diagnosis: Essential (primary) hypertension[ICD10: I10] Cordelia Garg MD, [facility] CPT-4: 18011 10/20/2015 ([id number]) 92443 EST. PATIENT, LEVEL IV Diagnosis: Type 2 diabetes mellitus with hyperglycemia[ICD10: E11.65] Diagnosis: Essential (primary) hypertension[ICD10: I10] Diagnosis: Actinic keratosis[ICD10: L57.0] Riana Garg MD, [facility] CPT-4: 82140 10/09/2015 ([id number]) 80208 EST. PATIENT, LEVEL IV Diagnosis: Type 2 diabetes mellitus with hyperglycemia[ICD10: E11.65] Diagnosis: Essential (primary) hypertension[ICD10: I10] Riana Garg MD, [facility] CPT-4: 75182 09/21/2015 ([id number]) 67596 EST. PATIENT, LEVEL IV Diagnosis: Type 2 diabetes mellitus with hyperglycemia[ICD10: E11.65] Diagnosis: Hypothyroidism, unspecified[ICD10: E03.9] Diagnosis: Essential (primary) hypertension[ICD10: I10] Riana Garg MD, [facility] CPT-4: 25863 08/22/2015 ([id number]) 88604 EST. PATIENT, LEVEL IV Diagnosis: ESSENTIAL HYPERTENSION[ICD9: 401.9] Diagnosis: HYPERLIPIDEMIA[ICD9: 272.4] Diagnosis: DIABETES TYPE II[ICD9: 250.00] Riana Garg MD, [facility] CPT-4: 53304 04/07/2015 ([id number]) OFFICE/OUTPATIENT VISIT NEW Diagnosis: ESSENTIAL HYPERTENSION[ICD9: 401.9] Diagnosis: Diabetes mellitus out of control[ICD9: 250.02] Diagnosis: HYPOTHYROIDISM[ICD9: 244.9] Diagnosis: HYPERLIPIDEMIA[ICD9: 272.4] Riana Garg MD, [facility] CPT-4: 78061 01/02/2015 Plan of Care Planned Activity Notes [...] starting to become less controlled. CKD-patient sees policy checker-has decided not to do dialysis right now Allergies-rx for flonase 07/20/2018 Appointment: Cordelia Kumar WPtel: [address] [place], [place] [phone] (15 min) Moderate 07/20/2018 Patient Education: Patient [...] controlled. 03/05/2018 App[facility]ment: [facility] [phone] [phone] [place] (30 min) Complex 03/05/2018 Patient [...] gel 10/30/2017 Appointment: [facility] [phone] [phone] [place] (30 min) Complex 10/30/2017 Patient [...] starting to become less controlled. Left thumb qgco-xfzdtjr-xzcabeyvt voltaren gel if symptoms persist 07/03/2017 Appointment: Cordelia Kumar WPtel: [phone] (30 min) Complex 07/03/2017 Patient Education: [...] to become less controlled. Chronic renal disease-sees policy checker and also teacher private for management of anemia 04/03/2017 Visit Plan: [...] to become less controlled. Chronic renal disease-sees policy checker and also teacher private for management of anemia 04/03/2017 Appointment: Cordelia Kumar WPtel: [phone] [phone] (30 min) Complex 04/03/2017 Patient Education: Patient [...] less controlled. 12/31/2016 Appointment: Cordelia Kumar WPtel: [phone] [phone] (30 min) Complex 12/31/2016 Patient Education: Patient [...] acute concerns. 10/07/2016 Appointment: Cordelia Kumar WPtel: Formerly named [facility] (30 min) Complex 10/07/2016 Appointment: Cordelia Kumar WPtel: Formerly named [phone] (30 min) Complex 10/07/2016 Patient Education: Patient [...] at home. 09/19/2016 Appointment: Cordelia Kumar WPtel: Formerly named [phone] (30 min) Complex 09/19/2016 Patient Education: Patient [...] Completed 07/08/2016 [facility]ment: [facility] [phone] [phone] (30 min) Complex 06/20/2016 Visit Plan: [...] stage 4- patient to make appt with [facility] Addendum: Patient has since moved to [facility] since this office visit. They are [...] stage 4- patient to make appt with [facility] 03/28/2016 Visit Plan: Hypertension - [...] stage 4- patient to make appt with [facility] Addendum: Patient noncompliant with blood sugar logs-she has been instructed to test QID but only tests daily- she did not bring her log for review today.- Patient has since moved to [facility] since this office visit. They are [...] stage 4- patient to make appt with [facility] Addendum: Patient noncompliant with blood sugar logs-she has been instructed to test QID but only tests daily- she did not bring her log for review today.- Patient has since moved to [facility] and they are checking her blood sugars AC and HS due to uncontrolled diabetes-she is on a sliding scale insulin which requires more frequent monitoring of blood sugars. 03/28/2016 Patient Education: Patient Medication Summary Completed 03/28/2016 [facility] [address] [id number] [place] ([place] min) Complex 03/26/2016 [facility]: [facility] [address] [phone] [place] ([place] min) Complex 02/20/2016 Visit [...] home. 01/22/2016 [facility]: [facility] [address] [phone] [place] (30 min) Complex 01/22/2016 Patient Education: [...] pt has been seeing a group in [facility] - but would like to be seen in [place] to avoid excessive travel. 12/21/2015 Patient Education: Patient Medication Summary Completed 12/21/2015 Appointment: Riana Garg WPtel: [address] [place], [place] [id number] (15 min) Moderate 12/18/2015 Visit Plan: DM [...] me dications. 04/07/2015 Appointment: Riana Garg WPtel: [id number] Follow up 04/07/2015 Patient Education: Patient Medication [...] control. 01/02/2015 Appointment: R[facility]arg [facility] [address] [facility] [place] ([place] New Patient 01/02/2015 Patient Education: Patient Medication Summary Completed 01/02/2015 Patient Education: Hypertension Completed 01/02/2015 Instructions Comment . Diabetes Mellitus - I have recommended [...] disease stage 4-patient to make appt with [facility] Addendum: Patient has since moved to [facility] since this office visit. They are [...] disease stage 4-patient to make appt with [facility] . Hypertension - well controlled [...] disease stage 4-patient to make appt with [facility] Addendum: Patient noncompliant with blood sugar logs-she has been instructed to test QID but only tests daily-she did not bring her log for review today.- Patient has since moved to [facility] since this office visit. They are [...] will send a referral today to the [facility] - they are located in the [facility] at [address] [place] [address] in [place] - phone number is [phone] . Hypertension - well controlled - continue [...] based on previous levels of control. . DM - medications unchanged today - pt was again without her glucose readings - recommended family to bring in her book. DO NOT TAKE NOVOLOG IF YOU DO [...] pt is to call for acute concerns. check hgb a1c flonase nasal spray . [...] starting to become less controlled. CKD-patient sees policy checker-has decided not to do dialysis right now [...] to become less controlled. 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 Diabetes Mellitus - NOT WELL CONTROLLED-HAVING [...] in blood pressure readings at home. . Hypertension - well controlled - continue [...] disease stage 4-patient to make appt with [facility] Addendum: Patient noncompliant with blood sugar logs-she has been instructed to test QID but only tests daily-she did not bring her log for review today.- Patient has since moved to [facility] and they are checking her blood sugars AC and HS due to uncontrolled diabetes-she is on a sliding scale insulin which requires more frequent monitoring of blood sugars. Next time you have an appt - please bring in your blood glucose log sheet Dr. Garg will send a referral today to the [facility] - they are located in the [facility] at [address] [place] [address] in [place] - phone number is [phone] . Hypertension - well controlled - continue [...] pt has been seeing a group in [facility] - but would like to be seen in [place] to avoid excessive travel. BRING BLOOD SUGAR [...] starting to become less controlled. Left thumb edyx-ewefrgx-supyxvxkj voltaren gel if symptoms persist Mylanta for [...] to become less controlled. 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 [...]
--- OUTSIDE RECORDS SUMMARY | 2019-02-16 19:20 | XMS REPORT | CCD ---
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 Name Role Phone PP Unavailable CCM Unavailable Summary Purpose Interface Exchange Insurance Providers Payer name Policy type / Coverage type Covered alliance party ID Effective Begin Date Effective End Date WPS Medicare Part B [id number] 2015 Unknown [facility] Assistance [id number] 2015 Unknown Family history Mother Diagnosis Age At Onset Anemia Unknown Stroke Unknown Arthritis Unknown Hypertension Unknown Father Diagnosis Age At Onset Cancer Unknown Social History Social History Element Codes Description Effective Dates Marital status Unknown 01/02/2015 Number of children Unknown 3 01/02/2015 Employment Unknown Retired 01/02/[address]: 7155507 Quit over 10 years ago 25 years ago 01/02/[address]: 884455147 Never drinks alcohol 01/02/2015 Allergies, Adverse Reactions, [...] Instructions Voltaren 1 % topical gel RxNorm: 975922 2 Gram(s) TOP QID 10/30/2017 No Stop Date Active Novolog 100 unit/mL subcutaneous solution RxNorm: 245565 5-10 Unit(s) SQ QID per sliding scale 07/03/2017 No Stop Date Active Novolog 100 unit/mL subcutaneous solution RxNorm: 822706 8 Unit(s) SQ at noon 09/27/2016 No Stop Date Active Novolog Flexpen 100 unit/mL subcutaneous RxNorm: 2205980 8 Unit(s) SQ at noon 09/27/2016 09/27/2016 Inactive Novolog Flexpen 100 unit/mL subcutaneous RxNorm: 8355709 8 Unit(s) SQ at noon 09/27/2016 09/26/2016 Inactive Novolog 100 unit/mL subcutaneous solution RxNorm: 800187 9 Unit(s) SQ at noon 09/27/2016 09/26/2016 Inactive Lantus 100 unit/mL subcutaneous solution RxNorm: 075500 25 Unit(s) SQ QHS 09/19/2016 No Stop Date Active Coreg 6.25 mg tablet RxNorm: 971985 2 Tablet(s) PO BID 07/08/2016 09/30/2017 Inactive Lantus Solostar 100 unit/mL (3 mL) subcutaneous insulin pen RxNorm: 794771 25 Unit(s) SQ QAM and 50 Units at bedtime 04/05/2016 05/07/2016 Inactive Synthroid 150 mcg tablet RxNorm: 258562 1 Tablet(s) PO daily 04/05/2016 07/02/2017 Inactive Lantus Solostar 100 unit/mL (3 mL) subcutaneous insulin pen RxNorm: 856798 20 Unit(s) SQ QAM and 45 Units at bedtime 01/03/2016 01/07/2016 Inactive Synthroid 125 mcg tablet RxNorm: 264479 1 Tablet(s) PO daily 12/20/2015 12/19/2015 Inactive Synthroid 125 mcg tablet RxNorm: 763912 1 Tablet(s) PO daily 12/20/2015 04/04/2016 Inactive Novolog Flexpen 100 unit/mL subcutaneous RxNorm: 1473875 15 Unit(s) SQ am and 15 units @ noon BID 11/15/2015 05/07/2016 Inactive Lantus Solostar 100 unit/mL (3 mL) subcutaneous insulin pen RxNorm: 072640 10 Unit(s) SQ QAM and 40 Units at bedtime 11/15/2015 11/19/2015 Inactive increased from 25u Coreg 6.25 mg tablet RxNorm: 953870 1.5 Tablet(s) PO BID 10/09/2015 07/07/2016 Inactive Lantus Solostar 100 unit/mL (3 mL) subcutaneous insulin pen RxNorm: 537518 35 Unit(s) SQ QHS 09/26/2015 11/14/2015 Inactive increased from 25u Novolog Flexpen 100 unit/mL subcutaneous RxNorm: 0870945 12 Unit(s) SQ am and 12 units @ noon BID 09/25/2015 11/14/2015 Inactive losartan 100 mg tablet RxNorm: 459031 1 Tablet(s) PO daily 09/21/2015 09/14/2016 Inactive Lantus Solostar 100 unit/mL (3 mL) subcutaneous insulin pen RxNorm: 732977 35 Unit(s) SQ QHS 09/21/2015 09/25/2015 Inactive Novolog Flexpen 100 unit/mL subcutaneous RxNorm: 8999310 12 Unit(s) SQ am and 12 units @ noon BID - dr to increase based on glucose readings hgba1c 10.4 09/21/2015 09/24/2015 Inactive Lantus Solostar 100 unit/mL (3 mL) subcutaneous insulin pen RxNorm: 413066 25 Unit(s) SQ QHS 08/29/2015 09/20/2015 Inactive Novolog Flexpen 100 unit/mL subcutaneous RxNorm: 3351777 8 Unit(s) SQ am and noon BID 08/29/2015 09/20/2015 Inactive Lantus Solostar 100 unit/mL (3 mL) subcutaneous insulin pen RxNorm: 739191 25 Unit(s) SQ QHS 08/25/2015 08/28/2015 Inactive losartan 50 mg tablet RxNorm: 930805 1 Tablet(s) PO daily 08/22/2015 09/20/2015 Inactive levothyroxine 125 mcg tablet RxNorm: 460313 1 Tablet(s) PO daily 01/23/2015 04/22/2015 Inactive Plavix 75 mg tablet RxNorm: 472368 1 Tablet(s) PO daily 01/02/2015 09/22/2016 Inactive Aranesp 25 mcg/mL (in polysorbate) Injection RxNorm: 235454 Milliliter(s) Inj 30mcg q 2 weeks 01/02/2015 05/08/2016 Inactive [SAVINGS FOR NON-COVERED DRUGS -- BIN:[id number], PCN: [id number], Group: XXXXX, ID# [id number], Questions: . THIS IS NOT INSURANCE.] aspirin 81 mg chewable tablet RxNorm: 830992 1 Tablet(s) PO daily 01/02/2015 05/07/2016 Inactive Coreg 6.25 mg tablet RxNorm: 584354 1 Tablet(s) PO BID 01/02/2015 10/08/2015 Inactive Fish Oil 300 mg-1,000 mg capsule RxNorm: 506722 2 Capsule(s) PO daily No Start Date Active sodium bicarbonate 650 mg tablet RxNorm: 788671 1 Tablet(s) PO BID No Start Date Active Crestor 40 mg tablet RxNorm: 700294 1 Tablet(s) PO daily No Start Date Active Multiple Vitamins tablet RxNorm: 1 Tablet(s) PO daily No Start Date Active Vitamin D3 2,000 unit tablet RxNorm: 434233 1 Tablet(s) PO daily No Start Date Active ferrous sulfate 325 mg (65 mg iron) tablet RxNorm: 337334 1 Tablet(s) PO daily No Start Date Active Vitamin B12 Oral RxNorm: oral No Start Date Active Aranesp 40 mcg/mL (in polysorbate) Injection RxNorm: 111681 Inject 1 Milliliter(s) SQ Every 2 weeks No Start Date Active levothyroxine 100 mcg tablet RxNorm: 138459 1 Tablet(s) PO daily No Start Date Active calcium carbonate 200 mg calcium (500 mg) chewable tablet RxNorm: 216763 1-2 Tablet(s) PO daily No Start Date Active ferrous sulfate 325 mg (65 mg iron) tablet RxNorm: 209275 1 Tablet(s) PO daily No Start Date 05/07/2016 Inactive Aranesp 25 mcg/mL (in polysorbate) Injection RxNorm: 542011 injection No Start Date 01/01/2015 Inactive lovastatin 40 mg tablet RxNorm: 724361 1 Tablet(s) PO daily No Start Date 05/07/2016 Inactive Lipitor 40 mg tablet RxNorm: 591616 1 Tablet(s) PO QHS No Start Date 01/01/2015 Inactive amlodipine 2.5 mg tablet RxNorm: 439365 1 Tablet(s) PO BID No Start Date 12/16/2014 Inactive sodium bicarbonate 325 mg tablet RxNorm: 881528 1 Tablet(s) PO BID No Start Date 05/07/2016 Inactive levothyroxine 150 mcg tablet RxNorm: 184177 1 Tablet(s) PO daily No Start Date 01/22/2015 Inactive Lantus Solostar 100 unit/mL (3 mL) subcutaneous insulin pen RxNorm: 174168 20 Unit(s) SQ QHS No Start Date 08/24/2015 Inactive Lantus 100 unit/mL subcutaneous solution RxNorm: 061408 30 Unit(s) SQ QHS No Start Date 09/18/2016 Inactive Novolog 100 unit/mL subcutaneous solution RxNorm: 265285 10 Unit(s) SQ BID in the AM and at noon No Start Date 07/02/2017 Inactive aspirin 81 mg tablet RxNorm: 813076 1 Tablet(s) PO daily No Start Date 01/01/2015 Inactive Novolog Flexpen 100 unit/mL subcutaneous RxNorm: 7636867 8 Unit(s) SQ am and noon BID No Start Date 08/28/2015 Inactive glimepiride 4 mg tablet RxNorm: 014540 1 Tablet(s) PO daily No Start Date 10/08/2015 Inactive Vitamin D3 2,000 unit capsule RxNorm: 400581 1 Capsule(s) PO daily No Start Date [...] Observation Code Item Item Code Result Date Comp Metabolic Mjf444 NA 143 mEq/L 04/14/2018 Comp Metabolic Mqw964 K 4.6 mEq/L 04/14/2018 Comp Metabolic Ydu744 CL 108 mEq/L 04/14/2018 Comp Metabolic Lfv834 CO2 23.0 mEq/L 04/14/2018 Comp Metabolic Eed780 ANION GAP 17 04/14/2018 Comp Metabolic Bkr584 GLUCOSE 54 mg/dL 04/14/2018 Comp Metabolic Obr520 Creat 2.7 mg/dL 04/14/2018 Comp Metabolic Wsl425 eGFR 18 ml/min/1.73m2 04/14/2018 Comp Metabolic Vdg786 BUN 45 mg/dL 04/14/2018 Comp Metabolic Zqo800 B/C Ratio 16.9 Ratio 04/14/2018 Comp Metabolic Gmd911 CALCIUM 8.3 mg/dL 04/14/2018 Comp Metabolic Ndk846 ALK PHOS 113 U/L 04/14/2018 Comp Metabolic Cyt452 AST(SGOT) 31 U/L 04/14/2018 Comp Metabolic Noa586 ALT(SGPT) 33 U/L 04/14/2018 Comp Metabolic Sgh898 BILI T 0.5 mg/dL 04/14/2018 Comp Metabolic Oqh303 ALBUMIN 3.6 g/dL 04/14/2018 Comp Metabolic Kkx430 TPRO 6.5 g/dL 04/14/2018 Comp Metabolic Ddu630 GLOB 2.9 g/dL 04/14/2018 Comp Metabolic Yth044 A/G Ratio 1.2 Ratio 04/14/2018 Comp Metabolic Auu725 Osmo 294 mOsmo 04/14/2018 Lipid Ord30 CHOL [...] Ord28 U-Com Culture to follow 01/21/2018 %Hba1C Fnr987 % HbA1c 91996- 6 7.4 % 11/03/2017 %Hba1C Rog704 Gluc Ave 166 mg/dL 11/03/2017 Urine Culture [...] 26.3 pg 09/20/2016 Cbc With Differential Ord2 [place]% 11.3 % 09/20/2016 Cbc With Differential Ord2 [...] 1.08 K/ul 09/20/2016 Cbc With Differential Ord2 [place] ABS# 0.5 K/ul 09/20/2016 Cbc With Differential Ord2 Eos ABS# 0.2 K/ul 09/20/2016 Cbc With Differential Ord2 Baso ABS# 0.1 K/ul 09/20/2016 Comp Metabolic Byy213 NA 141 mEq/L 09/20/2016 Comp Metabolic Gcv715 K 5.9 Result Verified By Repeat Analysis mEq/L 09/20/2016 Comp Metabolic Gom691 CL 110 mEq/L 09/20/2016 Comp Metabolic Tqi956 CO2 23.0 mEq/L 09/20/2016 Comp Metabolic Ldp320 ANION GAP 14 09/20/2016 Comp Metabolic Dyv836 GLUCOSE 101 mg/dL 09/20/2016 Comp Metabolic Cah172 Creat 2.2 mg/dL 09/20/2016 Comp Metabolic Zdp527 eGFR 23 ml/min/1.73m2 09/20/2016 Comp Metabolic Pcr361 BUN 49 mg/dL 09/20/2016 Comp Metabolic Sls488 B/C Ratio 22.0 Ratio 09/20/2016 Comp Metabolic Kdq891 CALCIUM 8.7 mg/dL 09/20/2016 Comp Metabolic Pis805 ALK PHOS 142 U/L 09/20/2016 Comp Metabolic Rcd151 AST(SGOT) 26 U/L 09/20/2016 Comp Metabolic Oxf740 ALT(SGPT) 27 U/L 09/20/2016 Comp Metabolic Wvw948 BILI T 0.3 mg/dL 09/20/2016 Comp Metabolic Trz088 ALBUMIN 4.0 g/dL 09/20/2016 Comp Metabolic Umy076 TPRO 7.6 g/dL 09/20/2016 Comp Metabolic Vrb452 GLOB 3.6 g/dL 09/20/2016 Comp Metabolic Big502 A/G Ratio 1.1 Ratio 09/20/2016 Comp Metabolic Wsm118 Osmo 294 mOsmo 09/20/2016 %Hba1C Crh148 % HbA1c 54645- 6 6.7 % 09/20/2016 %Hba1C Aok143 Gluc Ave 146 mg/dL 09/20/2016 Urinalysis Ord28 [...] hours from collection if refrigerated) 05/31/2016 %Hba1C Ble767 % HbA1c 21073- 6 13.5 % 03/28/2016 %Hba1C Lbl661 Gluc Ave 341 mg/dL 03/28/2016 Tsh Ord6 hTSH II 16.02 uIU/mL 03/28/2016 Comp Metabolic Lln700 NA 133 mEq/L 03/28/2016 Comp Metabolic Tge117 K 5.4 mEq/L 03/28/2016 Comp Metabolic Lrm194 CL 102 mEq/L 03/28/2016 Comp Metabolic Cem539 CO2 22.0 mEq/L 03/28/2016 Comp Metabolic Oaj440 ANION GAP 14 03/28/2016 Comp Metabolic Rll340 GLUCOSE 432 mg/dL 03/28/2016 Comp Metabolic Srz321 Creat 1.9 mg/dL 03/28/2016 Comp Metabolic Gyq394 eGFR 27 ml/min/1.73m2 03/28/2016 Comp Metabolic Oro701 BUN 38 mg/dL 03/28/2016 Comp Metabolic Vtz241 B/C Ratio 19.6 Ratio 03/28/2016 Comp Metabolic Hij641 CALCIUM 8.9 mg/dL 03/28/2016 Comp Metabolic Mao936 ALK PHOS 84 U/L 03/28/2016 Comp Metabolic Zcg104 AST(SGOT) 9 U/L 03/28/2016 Comp Metabolic Tdd745 ALT(SGPT) 6 U/L 03/28/2016 Comp Metabolic Tbj852 BILI T 0.4 mg/dL 03/28/2016 Comp Metabolic Wsu283 ALBUMIN 3.6 g/dL 03/28/2016 Comp Metabolic Jbd372 TPRO 6.8 g/dL 03/28/2016 Comp Metabolic Fvv267 GLOB 3.2 g/dL 03/28/2016 Comp Metabolic Rvy756 A/G Ratio 1.1 Ratio 03/28/2016 Comp Metabolic Rwz633 Osmo 294 mOsmo 03/28/2016 Free T4 Cxh279 FREE T4 0.72 ng/dL 03/28/2016 Comp Metabolic Wuk287 NA 132 mEq/L 12/22/2015 Comp Metabolic Ozx211 K 4.6 mEq/L 12/22/2015 Comp Metabolic Rto276 CL 97 mEq/L 12/22/2015 Comp Metabolic Qdf969 CO2 24.0 mEq/L 12/22/2015 Comp Metabolic Wlk166 ANION GAP 16 12/22/2015 Comp Metabolic Weq956 GLUCOSE 354 mg/dL 12/22/2015 Comp Metabolic Qmi137 Creat 1.8 mg/dL 12/22/2015 Comp Metabolic Soz940 eGFR 29 ml/min/1.73m2 12/22/2015 Comp Metabolic Yze994 BUN 47 mg/dL 12/22/2015 Comp Metabolic Dgs024 B/C Ratio 26.3 Ratio 12/22/2015 Comp Metabolic Mep895 CALCIUM 9.5 mg/dL 12/22/2015 Comp Metabolic Sgj227 ALK PHOS 100 U/L 12/22/2015 Comp Metabolic Iqw461 AST(SGOT) 15 U/L 12/22/2015 Comp Metabolic Wrd130 ALT(SGPT) 11 U/L 12/22/2015 Comp Metabolic Tfv577 BILI T 0.4 mg/dL 12/22/2015 Comp Metabolic Efl165 ALBUMIN 3.7 g/dL 12/22/2015 Comp Metabolic Yav676 TPRO 7.1 g/dL 12/22/2015 Comp Metabolic Vzh336 GLOB 3.4 g/dL 12/22/2015 Comp Metabolic Zoi153 A/G Ratio 1.1 Ratio 12/22/2015 Comp Metabolic Jwf922 Osmo 291 mOsmo 12/22/2015 Microalbumin Snc799 MicroAlb 25.4 mg/dL 12/22/2015 Random Urine Protein/Creatinine Ratio Nrr1617 U Prot 63.3 mg/dl 12/22/2015 Random Urine Protein/Creatinine Ratio Fwd3118 U CREAT 83.0 mg/dL 12/22/2015 Random Urine Protein/Creatinine Ratio Rbx9976 R MTP/Creat Ratio 0.76 12/22/2015 %Hba1C Kmy848 % HbA1c 88710- 6 11.9 % 12/21/2015 %Hba1C Sym132 Gluc Ave 295 mg/dL 12/21/2015 Review of [...] Procedure Codes Date DESTRUCT PREMALG LESION CPT-4: 29424 10/07/2016 Vital Signs Date Vital 07/20/2018 Blood Pressure 1: 144/70 Code: 8480-6 BMI: 28.3 Code: 28284-5 Heart Rate 1: 82 bpm Height: 5'3" SpO2: 100% Weight: 160 lbs 03/05/2018 Blood Pressure 1: 144/66 Code: 8480-6 BMI: 28.7 Code: 06058-2 Heart Rate 1: 83 bpm Height: 5'3" SpO2: 99% Weight: 162 lbs 10/30/2017 Blood Pressure 1: 122/58 Code: 8480-6 BMI: 30.1 Code: 93246-4 Heart Rate 1: 78 bpm Height: 5'3" SpO2: 98% Weight: 170 lbs 07/03/2017 Blood Pressure 1: 148/78 Code: 8480-6 BMI: 29.8 Code: 53515-4 Heart Rate 1: 80 bpm Height: 5'3" SpO2: 99% Weight: 168 lbs 04/03/2017 Blood Pressure 1: 144/64 Code: 8480-6 BMI: 29.1 Code: 09323-3 Heart Rate 1: 78 bpm Height: 5'3" SpO2: 98% Weight: 164 lbs 12/31/2016 Blood Pressure 1: 138/70 Code: 8480-6 BMI: 30.3 Code: 81854-8 Heart Rate 1: 84 bpm Height: 5'3" SpO2: 90% Weight: 171 lbs 10/07/2016 Blood Pressure 1: 146/78 Code: 8480-6 BMI: 29.4 Code: 40816-1 Heart Rate 1: 73 bpm Height: 5'3" SpO2: 99% Weight: 166 lbs 09/19/2016 Blood Pressure 1: 168/76 Code: 8480-6 BMI: 29.2 Code: 05623-9 Heart Rate 1: 88 bpm Height: 5'3" SpO2: 98% Weight: 165 lbs 07/08/2016 Blood Pressure 1: 120/80 Code: 8480-6 BMI: 28.3 Code: 49202-4 Heart Rate 1: 80 bpm Height: 5'3" SpO2: 99% Weight: 160 lbs 05/08/2016 Blood Pressure 1: 138/70 Code: 8480-6 BMI: 26.9 Code: 16740-2 Heart Rate 1: 93 bpm Height: 5'3" SpO2: 98% Weight: 152 lbs 03/28/2016 Blood Pressure 1: 144/74 Code: 8480-6 BMI: 27.6 Code: 90196-2 Heart Rate 1: 85 bpm Height: 5'3" SpO2: 99% Weight: 156 lbs 01/22/2016 Blood Pressure 1: 140/82 Code: 8480-6 BMI: 28.9 Code: 58111-9 Heart Rate 1: 104 bpm Height: 5'3" SpO2: 94% Weight: 163 lbs 12/21/2015 Blood Pressure 1: 140/90 Code: 8480-6 BMI: 28.7 Code: 20841-4 Heart Rate 1: 99 bpm Height: 5'3" SpO2: 96% Weight: 162 lbs 11/06/2015 Blood Pressure 1: 110/60 Code: 8480-6 BMI: 29.8 Code: 87172-4 Heart Rate 1: 93 bpm Height: 5'3" SpO2: 98% Weight: 168 lbs 10/20/2015 Blood Pressure 1: 152/62 Code: 8480-6 BMI: 29.8 Code: 72571-5 Heart Rate 1: 86 bpm Height: 5'3" SpO2: 96% Weight: 168 lbs 10/09/2015 Blood Pressure 1: 152/60 Code: 8480-6 BMI: 30.2 Code: 54416-6 Heart Rate 1: 83 bpm Height: 5'3" SpO2: 98% Weight: 170 lbs 8 oz 09/21/2015 Blood Pressure 1: 160/74 Code: 8480-6 Blood Pressure 1: 168/72 Code: 8480-6 BMI: 29.8 Code: 38700-0 Heart Rate 1: 82 bpm Height: 5'3" SpO2: 99% Weight: 168 lbs 08/22/2015 Blood Pressure 1: 178/78 Code: 8480-6 Blood Pressure 1: 170/82 Code: 8480-6 BMI: 29.2 Code: 94030-4 Heart Rate 1: 85 bpm Height: 5'3" SpO2: 99% Weight: 165 lbs 04/07/2015 Blood Pressure 1: 140/68 Code: 8480-6 BMI: 29.9 Code: 24057-6 Heart Rate 1: 81 bpm Height: 5'3" SpO2: 99% Weight: 169 lbs 01/02/2015 Blood Pressure 1: 162/72 Code: 8480-6 BMI: 30.3 Code: 98711-2 Heart Rate 1: 88 bpm Height: 5'3" [...] see scanned readings 10/07/2016 [facility] diabetes mellitus Pertinent Findings Denies dizziness 10/07/2016 [...] data Encounters Encounter Performer Location Codes Date ([id number]) 81504 EST. PATIENT, LEVEL IV Diagnosis: Type 2 diabetes mellitus with other specified complication[ICD10: E11.69] Diagnosis: Essential (primary) hypertension[ICD10: I10] Diagnosis: Other allergic rhinitis[ICD10: J30.89] Diagnosis: Chronic kidney disease, stage 4 (severe)[ICD10: N18.4] Cordelia Garg MD, [facility] CPT-4: 26351 07/20/2018 ([id number]) 91580 EST. PATIENT, LEVEL III Diagnosis: Essential (primary) hypertension[ICD10: I10] Diagnosis: Type 2 diabetes mellitus with other specified complication[ICD10: E11.69] Cordelia Garg MD, [facility] CPT-4: 43447 03/05/2018 ([id number]) 22408 EST. PATIENT, LEVEL IV Diagnosis: Type 2 diabetes mellitus with hyperglycemia[ICD10: E11.65] Diagnosis: Hypothyroidism, unspecified[ICD10: E03.9] Diagnosis: Essential (primary) hypertension[ICD10: I10] Diagnosis: Chronic kidney disease, stage 4 (severe)[ICD10: N18.4] Cordelia Garg MD, [facility] CPT-4: 13073 10/30/2017 ([id number]) 13085 EST. PATIENT, LEVEL IV Diagnosis: Hypothyroidism, unspecified[ICD10: E03.9] Diagnosis: Type 2 diabetes mellitus with hyperglycemia[ICD10: E11.65] Diagnosis: Essential (primary) hypertension[ICD10: I10] Diagnosis: Chronic kidney disease, stage 4 (severe)[ICD10: N18.4] Cordelia Garg MD, [facility] CPT-4: 07420 07/03/2017 ([id number]) 25874 EST. PATIENT, LEVEL III Diagnosis: Type 2 diabetes mellitus with hyperglycemia[ICD10: E11.65] Diagnosis: Essential (primary) hypertension[ICD10: I10] Diagnosis: Chronic kidney disease, stage 4 (severe)[ICD10: N18.4] Cordelia Garg MD, [facility] CPT-4: 18301 04/03/2017 ([id number]) 14762 EST. PATIENT, LEVEL III Diagnosis: Type 2 diabetes mellitus with hyperglycemia[ICD10: E11.65] Cordelia Garg MD, [facility] CPT-4: 31406 12/31/2016 ([id number]) 91320 EST. PATIENT, LEVEL II Diagnosis: Type 2 diabetes mellitus with hyperglycemia[ICD10: E11.65] Diagnosis: Essential (primary) hypertension[ICD10: I10] Diagnosis: Actinic keratosis[ICD10: L57.0] Cordelia Garg MD, [facility] CPT-4: 28298 10/07/2016 ([id number]) 97981 EST. PATIENT, LEVEL IV Diagnosis: Type 2 diabetes mellitus with hyperglycemia[ICD10: E11.65] Diagnosis: Essential (primary) hypertension[ICD10: I10] Cordelia Garg MD, [facility] CPT-4: 86177 09/19/2016 ([id number]) 70634 EST. PATIENT, LEVEL III Diagnosis: Type 2 diabetes mellitus with hyperglycemia[ICD10: E11.65] Diagnosis: Gastro-esophageal reflux disease without esophagitis[ICD10: K21.9] Cordelia Garg MD, [facility] CPT-4: 68606 07/08/2016 ([id number]) 29265 EST. PATIENT, LEVEL III Diagnosis: Type 2 diabetes mellitus with hyperglycemia[ICD10: E11.65] Riana Garg MD, [facility] CPT-4: 63753 05/08/2016 ([id number]) 10352 EST. PATIENT, LEVEL IV Diagnosis: Essential (primary) hypertension[ICD10: I10] Diagnosis: Type 2 diabetes mellitus with hyperglycemia[ICD10: E11.65] Diagnosis: Hypothyroidism, unspecified[ICD10: E03.9] Diagnosis: Chronic kidney disease, stage 4 (severe)[ICD10: N18.4] Cordelia Garg MD, [facility] CPT-4: 39104 03/28/2016 ([id number]) 54998 EST. PATIENT, LEVEL III Diagnosis: Type 2 diabetes mellitus with hyperglycemia[ICD10: E11.65] Diagnosis: Essential (primary) hypertension[ICD10: I10] Cordelia Garg MD, [facility] CPT-4: 73850 01/22/2016 ([id number]) 57464 EST. PATIENT, LEVEL IV Diagnosis: Type 2 diabetes mellitus with hyperglycemia[ICD10: E11.65] Diagnosis: Hypothyroidism, unspecified[ICD10: E03.9] Diagnosis: Essential (primary) hypertension[ICD10: I10] Diagnosis: Chronic kidney disease, stage 4 (severe)[ICD10: N18.4] Riana Garg MD, [facility] CPT-4: 33167 12/21/2015 ([id number]) 43138 EST. PATIENT, LEVEL III Diagnosis: Type 2 diabetes mellitus with hyperglycemia[ICD10: E11.65] Riana Garg MD, [facility] CPT-4: 81691 11/06/2015 ([id number]) 91122 EST. PATIENT, LEVEL IV Diagnosis: Type 2 diabetes mellitus with hyperglycemia[ICD10: E11.65] Diagnosis: Essential (primary) hypertension[ICD10: I10] Cordelia Garg MD, [facility] CPT-4: 50614 10/20/2015 [id number] 61059 EST. PATIENT, LEVEL IV Diagnosis: Type 2 diabetes mellitus with hyperglycemia[ICD10: E11.65] Diagnosis: Essential (primary) hypertension[ICD10: I10] Diagnosis: Actinic keratosis[ICD10: L57.0] Riana Garg MD [facility] CPT-4: 65687 10/09/2015 ([id number]) 26569 EST. PATIENT, LEVEL IV Diagnosis: Type 2 diabetes mellitus with hyperglycemia[ICD10: E11.65] Diagnosis: Essential (primary) hypertension[ICD10: I10] ADINA Dao MD CPT-4: 99923 09/21/2015 ([id number]) 69851 EST. PATIENT, LEVEL IV Diagnosis: Type 2 diabetes mellitus with hyperglycemia[ICD10: E11.65] Diagnosis: Hypothyroidism, unspecified[ICD10: E03.9] Diagnosis: Essential (primary) hypertension[ICD10: I10] ADINA Dao MD CPT-4: 71095 08/22/2015 ([id number]) 17302 EST. PATIENT, LEVEL IV Diagnosis: ESSENTIAL HYPERTENSION[ICD9: 401.9] Diagnosis: HYPERLIPIDEMIA[ICD9: 272.4] Diagnosis: DIABETES TYPE II[ICD9: 250.00] ADINA Dao MD CPT-4: 13680 04/07/2015 ([id number]) OFFICE/OUTPATIENT VISIT NEW Diagnosis: ESSENTIAL HYPERTENSION[ICD9: 401.9] Diagnosis: Diabetes mellitus out of control[ICD9: 250.02] Diagnosis: HYPOTHYROIDISM[ICD9: 244.9] Diagnosis: HYPERLIPIDEMIA[ICD9: 272.4] Riana Garg MD, [facility] CPT-4: 39568 01/02/2015 Plan of Care Planned Activity Notes [...] starting to become less controlled. 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 03/05/2018 Appointment: Cordelia Kumar WPtel: [phone] [facility] [phone] (30 min) Complex 03/05/2018 Patient Education: Patient [...] gel 10/30/2017 Appointment: Cordelia Kumar WPtel: [phone] [facility] [phone] (30 min) Complex 10/30/2017 Patient Education: Patient [...] starting to become less controlled. Left thumb upbu-hmcwsia-cjatxqxkq voltaren gel if symptoms persist 07/03/2017 Appointment: Cordelia Kumar WPtel: [facility] [phone] (30 min) Complex 07/03/2017 Patient Education: Patient [...] to become less controlled. 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 12/31/2016 Appointment: Cordelia Kumar WPtel: [facility] [phone] (30 min) Complex 12/31/2016 Patient Education: Patient [...] concerns. 10/07/2016 Appointment: Cord[phone] [phone] (30 min) Complex 10/07/2016 Appointment: [phone] (30 min) Complex 10/07/2016 Patient Education: Patient [...] home. 09/19/2016 Appointment: Cordelia Kumar WPtel: [phone] [facility] [address] [place] [address] (30 min) Complex 09/19/2016 Patient Education: Patient [...] Completed 07/08/2016 Appointment: Cordelia Kumar WPtel: [phone] [facility] [address] [place] [phone] (30 min) Complex 06/20/2016 Visit Plan: Diabetes [...] stage 4- patient to make appt with [facility] Addendum: Patient noncompliant with blood sugar logs-she has been instructed to test QID but only tests daily- she did not bring her log for review today.- Patient has since moved to [facility] and they are checking her blood [...] stage 4- patient to make appt with [facility] Addendum: Patient has since moved to [facility] since this office visit. They are [...] stage 4- patient to make appt with [facility] 03/28/2016 Visit Plan: Hypertension - [...] stage 4- patient to make appt with [facility] Addendum: Patient noncompliant with blood sugar logs-she has been instructed to test QID but only tests daily- she did not bring her log for review today.- Patient has since moved to [facility] since this office visit. They are checking her blood sugars AC and HS and she is on a sliding scale to control her diabetes. 03/28/2016 Patient Education: Patient Medication Summary Completed 03/28/2016 Appointment: Cordelia Kumar WPtel: [facility] [id number] [facility] (30 min) Complex 03/26/2016 Appointment: Cordelia Kumar WPtel: [address] [facility] [phone] (30 min) Complex 02/20/2016 Visit Plan: Diabetes [...] home. 01/22/2016 Appointment: Cordelia Kumar WPtel: [address] [facility] [phone] (30 min) Complex 01/22/2016 Patient Education: Patient [...] has been seeing a group in [facility] - but would like to be seen in [place] to avoid excessive travel. 12/21/2015 Patient Education: Patient Medication Summary Completed 12/21/2015 [id number] ([facility] Moderate 12/18/2015 Visit Plan: DM [...] dications. 04/07/2015 [facility]ment: [id number] Follow up 04/07/2015 Patient Education: Patient Medication [...] of control. 01/02/2015 Appointment: Riana Garg WPtel: [address] [place], [place] [id number] [place] ([place]) New Patient 01/02/2015 Patient Education: Patient Medication Summary Completed 01/02/2015 Patient Education: Hypertension Completed 01/02/2015 Instructions Comment check hgb a1c flonase nasal spray . [...] starting to become less controlled. 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 Hypertension - uncontrolled - the patient's [...] months based on previous levels of control. increase novolog to 12 units with morning [...] Patient has since moved to [facility] and they are checking her blood sugars AC and HS due to uncontrolled diabetes-she is on a sliding scale insulin which requires more frequent monitoring of blood sugars. . Diabetes Mellitus - Uncontrolled - per [...] months based on previous levels of control. will have [facility] fax over blood sugar log. . [...] are starting to become less controlled. . DM - medications unchanged today - [...] starting to become less controlled. Left thumb shoa-pkwuvgo-kboketfpx voltaren gel if symptoms persist DO NOT [...] to become less controlled. 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 Hypertension [...] to become less controlled. 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 Diabetes [...] Patient has since moved to [facility] since this office visit. They are [...] disease stage 4-patient to make appt with [facility] . Hypertension - well controlled [...] disease stage 4-patient to make appt with [facility] Addendum: Patient noncompliant with blood sugar logs-she has been instructed to test QID but only tests daily-she did not bring her log for review today.- Patient has since moved to [facility] since this office visit. They are [...] will send a referral today to the [facility] - they are located in the [facility] at [address] [place] [address] - phone number is [phone] . Hypertension - well controlled - continue [...] will send a referral today to the [facility] - they are located in the [facility] at [address] [place] [address] - phone number is [phone] . Hypertension - well controlled - continue [...] has been seeing a group in [facility] - but would like to be seen in [place] to avoid excessive travel. BRING BLOOD SUGAR [...] blood glucose control. Finger cellulitis - improved. stop the GLIMEPIRIDE make sure that you [...]
--- OUTSIDE RECORDS SUMMARY | 2019-02-16 19:23 | XMS REPORT | CCD ---
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 Name Role Phone PP Unavailable CCM Unavailable Summary Purpose Interface Exchange Insurance Providers Payer name Policy type / Coverage type Covered democrat ID Effective Begin Date Effective End Date WPS Medicare Part B [id number] 2015 Unknown [facility] Assistance [id number] 2015 Unknown Family history Mother Diagnosis Age At Onset Anemia Unknown Stroke Unknown Arthritis Unknown Hypertension Unknown Father Diagnosis Age At Onset Cancer Unknown Social History Social History Element Codes Description Effective Dates Marital status Unknown 01/02/2015 Number of children Unknown 3 01/02/2015 Employment Unknown Retired 01/02/[address]: 4921882 Quit over 10 years ago 25 years ago 01/02/[address]: 780407741 Never drinks alcohol 01/02/2015 Allergies, Adverse Reactions, [...] Instructions Voltaren 1 % topical gel RxNorm: 880206 2 Gram(s) TOP QID 10/30/2017 No Stop Date Active Novolog 100 unit/mL subcutaneous solution RxNorm: 197922 5-10 Unit(s) SQ QID per sliding scale 07/03/2017 No Stop Date Active Novolog 100 unit/mL subcutaneous solution RxNorm: 963828 8 Unit(s) SQ at noon 09/27/2016 No Stop Date Active Novolog Flexpen 100 unit/mL subcutaneous RxNorm: 4528128 8 Unit(s) SQ at noon 09/27/2016 09/27/2016 Inactive Novolog Flexpen 100 unit/mL subcutaneous RxNorm: 6790931 8 Unit(s) SQ at noon 09/27/2016 09/26/2016 Inactive Novolog 100 unit/mL subcutaneous solution RxNorm: 935854 9 Unit(s) SQ at noon 09/27/2016 09/26/2016 Inactive Lantus 100 unit/mL subcutaneous solution RxNorm: 753714 25 Unit(s) SQ QHS 09/19/2016 No Stop Date Active Coreg 6.25 mg tablet RxNorm: 303578 2 Tablet(s) PO BID 07/08/2016 09/30/2017 Inactive Lantus Solostar 100 unit/mL (3 mL) subcutaneous insulin pen RxNorm: 978334 25 Unit(s) SQ QAM and 50 Units at bedtime 04/05/2016 05/07/2016 Inactive Synthroid 150 mcg tablet RxNorm: 437860 1 Tablet(s) PO daily 04/05/2016 07/02/2017 Inactive Lantus Solostar 100 unit/mL (3 mL) subcutaneous insulin pen RxNorm: 731906 20 Unit(s) SQ QAM and 45 Units at bedtime 01/03/2016 01/07/2016 Inactive Synthroid 125 mcg tablet RxNorm: 199551 1 Tablet(s) PO daily 12/20/2015 12/19/2015 Inactive Synthroid 125 mcg tablet RxNorm: 586485 1 Tablet(s) PO daily 12/20/2015 04/04/2016 Inactive Novolog Flexpen 100 unit/mL subcutaneous RxNorm: 6854013 15 Unit(s) SQ am and 15 units @ noon BID 11/15/2015 05/07/2016 Inactive Lantus Solostar 100 unit/mL (3 mL) subcutaneous insulin pen RxNorm: 962155 10 Unit(s) SQ QAM and 40 Units at bedtime 11/15/2015 11/19/2015 Inactive increased from 25u Coreg 6.25 mg tablet RxNorm: 747518 1.5 Tablet(s) PO BID 10/09/2015 07/07/2016 Inactive Lantus Solostar 100 unit/mL (3 mL) subcutaneous insulin pen RxNorm: 316406 35 Unit(s) SQ QHS 09/26/2015 11/14/2015 Inactive increased from 25u Novolog Flexpen 100 unit/mL subcutaneous RxNorm: 8402711 12 Unit(s) SQ am and 12 units @ noon BID 09/25/2015 11/14/2015 Inactive losartan 100 mg tablet RxNorm: 276719 1 Tablet(s) PO daily 09/21/2015 09/14/2016 Inactive Lantus Solostar 100 unit/mL (3 mL) subcutaneous insulin pen RxNorm: 185073 35 Unit(s) SQ QHS 09/21/2015 09/25/2015 Inactive Novolog Flexpen 100 unit/mL subcutaneous RxNorm: 0683207 12 Unit(s) SQ am and 12 units @ noon BID - dr to increase based on glucose readings hgba1c 10.4 09/21/2015 09/24/2015 Inactive Lantus Solostar 100 unit/mL (3 mL) subcutaneous insulin pen RxNorm: 046368 25 Unit(s) SQ QHS 08/29/2015 09/20/2015 Inactive Novolog Flexpen 100 unit/mL subcutaneous RxNorm: 0913745 8 Unit(s) SQ am and noon BID 08/29/2015 09/20/2015 Inactive Lantus Solostar 100 unit/mL (3 mL) subcutaneous insulin pen RxNorm: 159571 25 Unit(s) SQ QHS 08/25/2015 08/28/2015 Inactive losartan 50 mg tablet RxNorm: 208152 1 Tablet(s) PO daily 08/22/2015 09/20/2015 Inactive levothyroxine 125 mcg tablet RxNorm: 576218 1 Tablet(s) PO daily 01/23/2015 04/22/2015 Inactive Plavix 75 mg tablet RxNorm: 296083 1 Tablet(s) PO daily 01/02/2015 09/22/2016 Inactive Aranesp 25 mcg/mL (in polysorbate) Injection RxNorm: 026129 Milliliter(s) Inj 30mcg q 2 weeks 01/02/2015 05/08/2016 Inactive [SAVINGS FOR NON-COVERED DRUGS -- BIN:[id number], PCN: [id number], Group: [id number], ID# [id number], Questions: . THIS IS NOT INSURANCE.] aspirin 81 mg chewable tablet RxNorm: 334787 1 Tablet(s) PO daily 01/02/2015 05/07/2016 Inactive Coreg 6.25 mg tablet RxNorm: 573325 1 Tablet(s) PO BID 01/02/2015 10/08/2015 Inactive Fish Oil 300 mg-1,000 mg capsule RxNorm: 265805 2 Capsule(s) PO daily No Start Date Active sodium bicarbonate 650 mg tablet RxNorm: 490985 1 Tablet(s) PO BID No Start Date Active Crestor 40 mg tablet RxNorm: 648358 1 Tablet(s) PO daily No Start Date Active Multiple Vitamins tablet RxNorm: 1 Tablet(s) PO daily No Start Date Active Vitamin D3 2,000 unit tablet RxNorm: 014020 1 Tablet(s) PO daily No Start Date Active ferrous sulfate 325 mg (65 mg iron) tablet RxNorm: 473995 1 Tablet(s) PO daily No Start Date Active Vitamin B12 Oral RxNorm: oral No Start Date Active Aranesp 40 mcg/mL (in polysorbate) Injection RxNorm: 457354 Inject 1 Milliliter(s) SQ Every 2 weeks No Start Date Active levothyroxine 100 mcg tablet RxNorm: 128823 1 Tablet(s) PO daily No Start Date Active calcium carbonate 200 mg calcium (500 mg) chewable tablet RxNorm: 837494 1-2 Tablet(s) PO daily No Start Date Active ferrous sulfate 325 mg (65 mg iron) tablet RxNorm: 176226 1 Tablet(s) PO daily No Start Date 05/07/2016 Inactive Aranesp 25 mcg/mL (in polysorbate) Injection RxNorm: 850768 injection No Start Date 01/01/2015 Inactive lovastatin 40 mg tablet RxNorm: 888537 1 Tablet(s) PO daily No Start Date 05/07/2016 Inactive Lipitor 40 mg tablet RxNorm: 530389 1 Tablet(s) PO QHS No Start Date 01/01/2015 Inactive amlodipine 2.5 mg tablet RxNorm: 644741 1 Tablet(s) PO BID No Start Date 12/16/2014 Inactive sodium bicarbonate 325 mg tablet RxNorm: 220311 1 Tablet(s) PO BID No Start Date 05/07/2016 Inactive levothyroxine 150 mcg tablet RxNorm: 370974 1 Tablet(s) PO daily No Start Date 01/22/2015 Inactive Lantus Solostar 100 unit/mL (3 mL) subcutaneous insulin pen RxNorm: 935350 20 Unit(s) SQ QHS No Start Date 08/24/2015 Inactive Lantus 100 unit/mL subcutaneous solution RxNorm: 943286 30 Unit(s) SQ QHS No Start Date 09/18/2016 Inactive Novolog 100 unit/mL subcutaneous solution RxNorm: 874694 10 Unit(s) SQ BID in the AM and at noon No Start Date 07/02/2017 Inactive aspirin 81 mg tablet RxNorm: 250758 1 Tablet(s) PO daily No Start Date 01/01/2015 Inactive Novolog Flexpen 100 unit/mL subcutaneous RxNorm: 4657342 8 Unit(s) SQ am and noon BID No Start Date 08/28/2015 Inactive glimepiride 4 mg tablet RxNorm: 998859 1 Tablet(s) PO daily No Start Date 10/08/2015 Inactive Vitamin D3 2,000 unit capsule RxNorm: 133601 1 Capsule(s) PO daily No Start Date [...] Item Item Code Result Date Comp Metabolic Zqe900 NA 143 mEq/L 04/14/2018 Comp Metabolic Hsg706 K 4.6 mEq/L 04/14/2018 Comp Metabolic Auz219 CL 108 mEq/L 04/14/2018 Comp Metabolic Kuo485 CO2 23.0 mEq/L 04/14/2018 Comp Metabolic Raz752 ANION GAP 17 04/14/2018 Comp Metabolic Mii501 GLUCOSE 54 mg/dL 04/14/2018 Comp Metabolic Yzt978 Creat 2.7 mg/dL 04/14/2018 Comp Metabolic Unh305 eGFR 18 ml/min/1.73m2 04/14/2018 Comp Metabolic Chk350 BUN 45 mg/dL 04/14/2018 Comp Metabolic Czj269 B/C Ratio 16.9 Ratio 04/14/2018 Comp Metabolic Elu725 CALCIUM 8.3 mg/dL 04/14/2018 Comp Metabolic Pij173 ALK PHOS 113 U/L 04/14/2018 Comp Metabolic Lqq608 AST(SGOT) 31 U/L 04/14/2018 Comp Metabolic Ndg640 ALT(SGPT) 33 U/L 04/14/2018 Comp Metabolic Iak946 BILI T 0.5 mg/dL 04/14/2018 Comp Metabolic Ktp985 ALBUMIN 3.6 g/dL 04/14/2018 Comp Metabolic Pvk533 TPRO 6.5 g/dL 04/14/2018 Comp Metabolic Ykr447 GLOB 2.9 g/dL 04/14/2018 Comp Metabolic Jkd492 A/G Ratio 1.2 Ratio 04/14/2018 Comp Metabolic Cwn643 Osmo 294 mOsmo 04/14/2018 Lipid Ord30 CHOL [...] Ord28 U-Com Culture to follow 01/21/2018 %Hba1C Cqf992 % HbA1c 08037- 6 7.4 % 11/03/2017 %Hba1C Xyu551 Gluc Ave 166 mg/dL 11/03/2017 Urine Culture [...] 26.3 pg 09/20/2016 Cbc With Differential Ord2 [place]% 11.3 % 09/20/2016 Cbc With Differential Ord2 [...] 1.08 K/ul 09/20/2016 Cbc With Differential Ord2 [place] ABS# 0.5 K/ul 09/20/2016 Cbc With Differential Ord2 Eos ABS# 0.2 K/ul 09/20/2016 Cbc With Differential Ord2 Baso ABS# 0.1 K/ul 09/20/2016 Comp Metabolic Rdo629 NA 141 mEq/L 09/20/2016 Comp Metabolic Obr055 K 5.9 Result Verified By Repeat Analysis mEq/L 09/20/2016 Comp Metabolic Cvt014 CL 110 mEq/L 09/20/2016 Comp Metabolic Grv183 CO2 23.0 mEq/L 09/20/2016 Comp Metabolic Dhi735 ANION GAP 14 09/20/2016 Comp Metabolic Xcg510 GLUCOSE 101 mg/dL 09/20/2016 Comp Metabolic Ize400 Creat 2.2 mg/dL 09/20/2016 Comp Metabolic Xxv510 eGFR 23 ml/min/1.73m2 09/20/2016 Comp Metabolic Oya410 BUN 49 mg/dL 09/20/2016 Comp Metabolic Zin541 B/C Ratio 22.0 Ratio 09/20/2016 Comp Metabolic Etg659 CALCIUM 8.7 mg/dL 09/20/2016 Comp Metabolic Mir682 ALK PHOS 142 U/L 09/20/2016 Comp Metabolic Gle052 AST(SGOT) 26 U/L 09/20/2016 Comp Metabolic Jhb218 ALT(SGPT) 27 U/L 09/20/2016 Comp Metabolic Srj775 BILI T 0.3 mg/dL 09/20/2016 Comp Metabolic Txe518 ALBUMIN 4.0 g/dL 09/20/2016 Comp Metabolic Wzt518 TPRO 7.6 g/dL 09/20/2016 Comp Metabolic Cte645 GLOB 3.6 g/dL 09/20/2016 Comp Metabolic Xyp972 A/G Ratio 1.1 Ratio 09/20/2016 Comp Metabolic Zvy522 Osmo 294 mOsmo 09/20/2016 %Hba1C Lng183 % HbA1c 58736- 6 6.7 % 09/20/2016 %Hba1C Dmx602 Gluc Ave 146 mg/dL 09/20/2016 Urinalysis Ord28 [...] 05/31/2016 Urinalysis Ord28 U-Yeast NEGATIVE 05/31/2016 %Hba1C Oyd394 % HbA1c 50376- 6 13.5 % 03/28/2016 %Hba1C Mqc144 Gluc Ave 341 mg/dL 03/28/2016 Tsh Ord6 hTSH II 16.02 uIU/mL 03/28/2016 Comp Metabolic Qzm144 NA 133 mEq/L 03/28/2016 Comp Metabolic Jle208 K 5.4 mEq/L 03/28/2016 Comp Metabolic Xie455 CL 102 mEq/L 03/28/2016 Comp Metabolic Arg638 CO2 22.0 mEq/L 03/28/2016 Comp Metabolic Tth848 ANION GAP 14 03/28/2016 Comp Metabolic Jxb357 GLUCOSE 432 mg/dL 03/28/2016 Comp Metabolic Boh465 Creat 1.9 mg/dL 03/28/2016 Comp Metabolic Ocm419 eGFR 27 ml/min/1.73m2 03/28/2016 Comp Metabolic Mby252 BUN 38 mg/dL 03/28/2016 Comp Metabolic Fsa988 B/C Ratio 19.6 Ratio 03/28/2016 Comp Metabolic Ent356 CALCIUM 8.9 mg/dL 03/28/2016 Comp Metabolic Beb730 ALK PHOS 84 U/L 03/28/2016 Comp Metabolic Xqz367 AST(SGOT) 9 U/L 03/28/2016 Comp Metabolic Iur099 ALT(SGPT) 6 U/L 03/28/2016 Comp Metabolic Urk504 BILI T 0.4 mg/dL 03/28/2016 Comp Metabolic Qui910 ALBUMIN 3.6 g/dL 03/28/2016 Comp Metabolic Mod083 TPRO 6.8 g/dL 03/28/2016 Comp Metabolic Ljq580 GLOB 3.2 g/dL 03/28/2016 Comp Metabolic Zjg105 A/G Ratio 1.1 Ratio 03/28/2016 Comp Metabolic Kly546 Osmo 294 mOsmo 03/28/2016 Free T4 Qrm976 FREE T4 0.72 ng/dL 03/28/2016 Comp Metabolic Shw429 NA 132 mEq/L 12/22/2015 Comp Metabolic Omh582 K 4.6 mEq/L 12/22/2015 Comp Metabolic Xpk038 CL 97 mEq/L 12/22/2015 Comp Metabolic Dbf929 CO2 24.0 mEq/L 12/22/2015 Comp Metabolic Ivn686 ANION GAP 16 12/22/2015 Comp Metabolic Ijd969 GLUCOSE 354 mg/dL 12/22/2015 Comp Metabolic Rwp065 Creat 1.8 mg/dL 12/22/2015 Comp Metabolic Wnu614 eGFR 29 ml/min/1.73m2 12/22/2015 Comp Metabolic Tlk849 BUN 47 mg/dL 12/22/2015 Comp Metabolic Puz819 B/C Ratio 26.3 Ratio 12/22/2015 Comp Metabolic Lxa601 CALCIUM 9.5 mg/dL 12/22/2015 Comp Metabolic Ywr011 ALK PHOS 100 U/L 12/22/2015 Comp Metabolic Alc311 AST(SGOT) 15 U/L 12/22/2015 Comp Metabolic Ifs231 ALT(SGPT) 11 U/L 12/22/2015 Comp Metabolic Hqe354 BILI T 0.4 mg/dL 12/22/2015 Comp Metabolic Wwb014 ALBUMIN 3.7 g/dL 12/22/2015 Comp Metabolic Qxr506 TPRO 7.1 g/dL 12/22/2015 Comp Metabolic Isx592 GLOB 3.4 g/dL 12/22/2015 Comp Metabolic Aij153 A/G Ratio 1.1 Ratio 12/22/2015 Comp Metabolic Rod972 Osmo 291 mOsmo 12/22/2015 Microalbumin Vrn969 MicroAlb 25.4 mg/dL 12/22/2015 Random Urine Protein/Creatinine Ratio Zzr8553 U Prot 63.3 mg/dl 12/22/2015 Random Urine Protein/Creatinine Ratio Yat0924 U CREAT 83.0 mg/dL 12/22/2015 Random Urine Protein/Creatinine Ratio Oxw7141 R MTP/Creat Ratio 0.76 12/22/2015 %Hba1C Ttb137 % HbA1c 07543- 6 11.9 % 12/21/2015 %Hba1C Mjc944 Gluc Ave 295 mg/dL 12/21/2015 Review of [...] Procedure Codes Date DESTRUCT PREMALG LESION CPT-4: 85749 10/07/2016 Vital Signs Date Vital 07/20/2018 Blood Pressure 1: 144/70 Code: 8480-6 BMI: 28.3 Code: 39191-1 Heart Rate 1: 82 bpm Height: 5'3" SpO2: 100% Weight: 160 lbs 03/05/2018 Blood Pressure 1: 144/66 Code: 8480-6 BMI: 28.7 Code: 21257-9 Heart Rate 1: 83 bpm Height: 5'3" SpO2: 99% Weight: 162 lbs 10/30/2017 Blood Pressure 1: 122/58 Code: 8480-6 BMI: 30.1 Code: 03177-7 Heart Rate 1: 78 bpm Height: 5'3" SpO2: 98% Weight: 170 lbs 07/03/2017 Blood Pressure 1: 148/78 Code: 8480-6 BMI: 29.8 Code: 19399-4 Heart Rate 1: 80 bpm Height: 5'3" SpO2: 99% Weight: 168 lbs 04/03/2017 Blood Pressure 1: 144/64 Code: 8480-6 BMI: 29.1 Code: 86674-4 Heart Rate 1: 78 bpm Height: 5'3" SpO2: 98% Weight: 164 lbs 12/31/2016 Blood Pressure 1: 138/70 Code: 8480-6 BMI: 30.3 Code: 77935-2 Heart Rate 1: 84 bpm Height: 5'3" SpO2: 90% Weight: 171 lbs 10/07/2016 Blood Pressure 1: 146/78 Code: 8480-6 BMI: 29.4 Code: 40319-5 Heart Rate 1: 73 bpm Height: 5'3" SpO2: 99% Weight: 166 lbs 09/19/2016 Blood Pressure 1: 168/76 Code: 8480-6 BMI: 29.2 Code: 78412-4 Heart Rate 1: 88 bpm Height: 5'3" SpO2: 98% Weight: 165 lbs 07/08/2016 Blood Pressure 1: 120/80 Code: 8480-6 BMI: 28.3 Code: 17884-6 Heart Rate 1: 80 bpm Height: 5'3" SpO2: 99% Weight: 160 lbs 05/08/2016 Blood Pressure 1: 138/70 Code: 8480-6 BMI: 26.9 Code: 44243-8 Heart Rate 1: 93 bpm Height: 5'3" SpO2: 98% Weight: 152 lbs 03/28/2016 Blood Pressure 1: 144/74 Code: 8480-6 BMI: 27.6 Code: 76666-2 Heart Rate 1: 85 bpm Height: 5'3" SpO2: 99% Weight: 156 lbs 01/22/2016 Blood Pressure 1: 140/82 Code: 8480-6 BMI: 28.9 Code: 19500-5 Heart Rate 1: 104 bpm Height: 5'3" SpO2: 94% Weight: 163 lbs 12/21/2015 Blood Pressure 1: 140/90 Code: 8480-6 BMI: 28.7 Code: 46475-6 Heart Rate 1: 99 bpm Height: 5'3" SpO2: 96% Weight: 162 lbs 11/06/2015 Blood Pressure 1: 110/60 Code: 8480-6 BMI: 29.8 Code: 99198-3 Heart Rate 1: 93 bpm Height: 5'3" SpO2: 98% Weight: 168 lbs 10/20/2015 Blood Pressure 1: 152/62 Code: 8480-6 BMI: 29.8 Code: 82756-9 Heart Rate 1: 86 bpm Height: 5'3" SpO2: 96% Weight: 168 lbs 10/09/2015 Blood Pressure 1: 152/60 Code: 8480-6 BMI: 30.2 Code: 81707-5 Heart Rate 1: 83 bpm Height: 5'3" SpO2: 98% Weight: 170 lbs 8 oz 09/21/2015 Blood Pressure 1: 160/74 Code: 8480-6 Blood Pressure 1: 168/72 Code: 8480-6 BMI: 29.8 Code: 77269-9 Heart Rate 1: 82 bpm Height: 5'3" SpO2: 99% Weight: 168 lbs 08/22/2015 Blood Pressure 1: 170/82 Code: 8480-6 Blood Pressure 1: 178/78 Code: 8480-6 BMI: 29.2 Code: 84283-7 Heart Rate 1: 85 bpm Height: 5'3" SpO2: 99% Weight: 165 lbs 04/07/2015 Blood Pressure 1: 140/68 Code: 8480-6 BMI: 29.9 Code: 97436-8 Heart Rate 1: 81 bpm Height: 5'3" SpO2: 99% Weight: 169 lbs 01/02/2015 Blood Pressure 1: 162/72 Code: 8480-6 BMI: 30.3 Code: 27843-4 Heart Rate 1: 88 bpm Height: 5'3" [...] data Encounters Encounter Performer Location Codes Date ([id number]) 16550 EST. PATIENT, LEVEL IV Diagnosis: Type 2 diabetes mellitus with other specified complication[ICD10: E11.69] Diagnosis: Essential (primary) hypertension[ICD10: I10] Diagnosis: Other allergic rhinitis[ICD10: J30.89] Diagnosis: Chronic kidney disease, stage 4 (severe)[ICD10: N18.4] Cordelia Garg MD, [facility] CPT-4: 15312 07/20/2018 ([id number]) 26478 EST. PATIENT, LEVEL III Diagnosis: Essential (primary) hypertension[ICD10: I10] Diagnosis: Type 2 diabetes mellitus with other specified complication[ICD10: E11.69] Cordelia Garg MD, [facility] CPT-4: 68075 03/05/2018 ([id number]) 80722 EST. PATIENT, LEVEL IV Diagnosis: Type 2 diabetes mellitus with hyperglycemia[ICD10: E11.65] Diagnosis: Hypothyroidism, unspecified[ICD10: E03.9] Diagnosis: Essential (primary) hypertension[ICD10: I10] Diagnosis: Chronic kidney disease, stage 4 (severe)[ICD10: N18.4] Cordelia Garg MD, [facility] CPT-4: 24099 10/30/2017 ([id number]) 29725 EST. PATIENT, LEVEL IV Diagnosis: Hypothyroidism, unspecified[ICD10: E03.9] Diagnosis: Type 2 diabetes mellitus with hyperglycemia[ICD10: E11.65] Diagnosis: Essential (primary) hypertension[ICD10: I10] Diagnosis: Chronic kidney disease, stage 4 (severe)[ICD10: N18.4] Cordelia Garg MD, [facility] CPT-4: 00702 07/03/2017 ([id number]) 08504 EST. PATIENT, LEVEL III Diagnosis: Type 2 diabetes mellitus with hyperglycemia[ICD10: E11.65] Diagnosis: Essential (primary) hypertension[ICD10: I10] Diagnosis: Chronic kidney disease, stage 4 (severe)[ICD10: N18.4] Cordelia Garg MD, [facility] CPT-4: 75742 04/03/2017 ([id number]) 23849 EST. PATIENT, LEVEL III Diagnosis: Type 2 diabetes mellitus with hyperglycemia[ICD10: E11.65] Cordelia Garg MD, [facility] CPT-4: 67106 12/31/2016 ([id number]) 16999 EST. PATIENT, LEVEL II Diagnosis: Type 2 diabetes mellitus with hyperglycemia[ICD10: E11.65] Diagnosis: Essential (primary) hypertension[ICD10: I10] Diagnosis: Actinic keratosis[ICD10: L57.0] Cordelia Garg MD, [facility] CPT-4: 98935 10/07/2016 ([id number]) 57032 EST. PATIENT, LEVEL IV Diagnosis: Type 2 diabetes mellitus with hyperglycemia[ICD10: E11.65] Diagnosis: Essential (primary) hypertension[ICD10: I10] Cordelia Garg MD, [facility] CPT-4: 56268 09/19/2016 ([id number]) 36152 EST. PATIENT, LEVEL III Diagnosis: Type 2 diabetes mellitus with hyperglycemia[ICD10: E11.65] Diagnosis: Gastro-esophageal reflux disease without esophagitis[ICD10: K21.9] Cordelia Garg MD, [facility] CPT-4: 49769 07/08/2016 ([id number]) 11738 EST. PATIENT, LEVEL III Diagnosis: Type 2 diabetes mellitus with hyperglycemia[ICD10: E11.65] Riana Garg MD, [facility] CPT-4: 06990 05/08/2016 ([id number]) 81161 EST. PATIENT, LEVEL IV Diagnosis: Essential (primary) hypertension[ICD10: I10] Diagnosis: Type 2 diabetes mellitus with hyperglycemia[ICD10: E11.65] Diagnosis: Hypothyroidism, unspecified[ICD10: E03.9] Diagnosis: Chronic kidney disease, stage 4 (severe)[ICD10: N18.4] Cordelia Garg MD, [facility] CPT-4: 63664 03/28/2016 ([id number]) 13975 EST. PATIENT, LEVEL III Diagnosis: Type 2 diabetes mellitus with hyperglycemia[ICD10: E11.65] Diagnosis: Essential (primary) hypertension[ICD10: I10] Cordelia Garg MD, [facility] CPT-4: 38016 01/22/2016 ([id number]) 33231 EST. PATIENT, LEVEL IV Diagnosis: Type 2 diabetes mellitus with hyperglycemia[ICD10: E11.65] Diagnosis: Hypothyroidism, unspecified[ICD10: E03.9] Diagnosis: Essential (primary) hypertension[ICD10: I10] Diagnosis: Chronic kidney disease, stage 4 (severe)[ICD10: N18.4] Riana Garg MD, [facility] CPT-4: 43341 12/21/2015 ([id number]) 58331 EST. PATIENT, LEVEL III Diagnosis: Type 2 diabetes mellitus with hyperglycemia[ICD10: E11.65] Riana Garg MD, [facility] CPT-4: 75596 11/06/2015 ([id number]) 49392 EST. PATIENT, LEVEL IV Diagnosis: Type 2 diabetes mellitus with hyperglycemia[ICD10: E11.65] Diagnosis: Essential (primary) hypertension[ICD10: I10] Cordelia Garg MD, [facility] CPT-4: 37550 10/20/2015 [id number] 19924 EST. PATIENT, LEVEL IV Diagnosis: Type 2 diabetes mellitus with hyperglycemia[ICD10: E11.65] Diagnosis: Essential (primary) hypertension[ICD10: I10] Diagnosis: Actinic keratosis[ICD10: L57.0] Riana Garg MD [facility] CPT-4: 58780 10/09/2015 ([id number]) 73447 EST. PATIENT, LEVEL IV Diagnosis: Type 2 diabetes mellitus with hyperglycemia[ICD10: E11.65] Diagnosis: Essential (primary) hypertension[ICD10: I10] ADINA Dao MD CPT-4: 71811 09/21/2015 ([id number]) 44389 EST. PATIENT, LEVEL IV Diagnosis: Type 2 diabetes mellitus with hyperglycemia[ICD10: E11.65] Diagnosis: Hypothyroidism, unspecified[ICD10: E03.9] Diagnosis: Essential (primary) hypertension[ICD10: I10] ADINA Dao MD CPT-4: 95060 08/22/2015 ([id number]) 67569 EST. PATIENT, LEVEL IV Diagnosis: ESSENTIAL HYPERTENSION[ICD9: 401.9] Diagnosis: HYPERLIPIDEMIA[ICD9: 272.4] Diagnosis: DIABETES TYPE II[ICD9: 250.00] ADINA Dao MD CPT-4: 70937 04/07/2015 ([id number]) OFFICE/OUTPATIENT VISIT NEW Diagnosis: ESSENTIAL HYPERTENSION[ICD9: 401.9] Diagnosis: Diabetes mellitus out of control[ICD9: 250.02] Diagnosis: HYPOTHYROIDISM[ICD9: 244.9] Diagnosis: HYPERLIPIDEMIA[ICD9: 272.4] Riana Garg MD, [facility] CPT-4: 72457 01/02/2015 Plan of Care Planned Activity Notes [...] starting to become less controlled. 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 03/05/2018 Appointment: Cordelia Kumar WPtel: [address] [place], [place] [phone] (30 min) [facility] 03/05/2018 Patient Education: Patient Medication Summary Completed [...] gel 10/30/2017 [facility]ment[facility] [phone] [phone] ([facility] min[facility] 10/30/2017 Patient Education: [...] starting to become less controlled. Left thumb djhv-ykqthmc-bihkmfwnc voltaren gel if symptoms persist 07/03/2017 [facility]ment: [facility] [phone] [phone] (30 min) Complex 07/03/2017 Patient Education: [...] to become less controlled. 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 12/31/2016 [facility] [phone] [phone] ([facility] min) Complex 12/31/2016 Patient Education: [...] concerns. 10/07/2016 [facility]ment[facility] [phone] [phone] ([facility] min) Complex 10/07/2016 [facility] [phone] [phone] (30 min) Complex 10/07/2016 Patient Education: Patient [...] at home. 09/19/2016 Appointment: Cordelia Kumar WPtel: [phone] [phone] (30 min) Complex 09/19/2016 Patient Education: [...] Summary Completed 07/08/2016 [facility]ment: [facility] [phone] [phone] (30 min) Complex 06/20/2016 Visit Plan: [...] stage 4- patient to make appt with [facility] Addendum: Patient noncompliant with blood sugar logs-she has been instructed to test QID but only tests daily- she did not bring her log for review today.- Patient has since moved to [facility] since this office visit. They [...] stage 4- patient to make appt with [facility] 03/28/2016 Visit Plan: Hypertension - [...] stage 4- patient to make appt with [facility] Addendum: Patient noncompliant with blood sugar logs-she has been instructed to test QID but only tests daily- she did not bring her log for review today.- Patient has since moved to [facility] and they are checking her [...] stage 4- patient to make appt with [facility] Addendum: Patient has since moved to [facility] since this office visit. They are checking her blood sugars AC and HS and she is on a sliding scale to control her d iabetes. 03/28/2016 Patient Education: Patient Medication Summary Completed 03/28/2016 Appointment: Cordelia Kumar WPtel: [phone] [facility] [place] [address] (30 min) Complex 03/26/2016 Appointment: Cordelia Kumar WPtel: [phone] [facility] [place] [address] (30 min) Complex 02/20/2016 Visit Plan: Diabetes [...] blood pressure readings at home. 01/22/2016 Appointment: KumarCordelia WPtel: [phone] [facility] [place] [address] (30 min) Complex 01/22/2016 Patient Education: Patient [...] pt has been seeing a group in [facility] - but would like to be seen in [place] to avoid excessive travel. 12/21/2015 Visit Plan: [...] Completed 12/21/2015 Appointment[phone] [id number] ([facility] min) Moderate 12/18/2015 Visit [...] me dications. 04/07/2015 Appointment: Riana Garg WPtel: [id number] Follow up 04/07/2015 Patient Education: [...] control. 01/02/2015 Appointment: Riana Garg [facility]Ptel: [phone] [id number] [place] New Patient 01/02/2015 [...] Group - they are located in the [facility] at [address] [place] [address] in [place] - phone number is [phone] . Hypertension - well controlled - continue [...] pt has been seeing a group in [facility] - but would like to be seen in [place] to avoid excessive travel. Next time you have an appt - please bring in your blood glucose log sheet Dr. Garg will send a referral today to the [facility] - they are located in the [facility] at [address] [facility] in [place] - phone number is [phone] . Hypertension - well controlled - continue [...] disease stage 4-patient to make appt with [facility] Addendum: Patient noncompliant with blood sugar logs-she has been instructed to test QID but only tests daily-she did not bring her log for review today.- Patient has since moved to [facility] since this office visit. They [...] disease stage 4-patient to make appt with [facility] . Hypertension - well controlled [...] disease stage 4-patient to make appt with [facility] Addendum: Patient noncompliant with blood sugar logs-she has been instructed to test QID but only tests daily-she did not bring her log for review today.- Patient has since moved to [facility] and they are checking her [...] group Addendum: Patient has since moved to [facility] since this office visit. They [...] to become less controlled. 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 Hypertension [...] to become less controlled. 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 Diabetes [...] starting to become less controlled. CKD-patient sees space studies faculty member-has decided not to do dialysis right now [...] starting to become less controlled. Left thumb roux-vrfvdby-bicwhctvz voltaren gel if symptoms persist . Hypertension [...] increase losartan to 100mg daily will have [facility] fax over blood sugar log. . [...]
[2019-02-16 19:27] VITALS: BP 150/72
== END 2019-02-16 19:28 | disposition home or self-care (01) ==
LOC: EDUNIT# 17:24 → ER 17:25
DX: S01.01XA Laceration without foreign body of scalp, initial encounter (principal); I25.10 Atherosclerotic heart disease of native coronary artery without angina pectoris; K21.9 Gastro-esophageal reflux disease without esophagitis; E11.9 Type 2 diabetes mellitus without complications; E03.9 Hypothyroidism, unspecified; Z80.0 Family history of malignant neoplasm of digestive organs; Z90.89 Acquired absence of other organs; Z79.02 Long term (current) use of antithrombotics/antiplatelets; Z79.51 Long term (current) use of inhaled steroids; Z79.4 Long term (current) use of insulin; Z82.49 Family history of ischemic heart disease and other diseases of the circulatory system; W50.0XXA Accidental hit or strike by another person, initial encounter; Y92.89 Other specified places as the place of occurrence of the external cause
CPT/HCPCS: 12031; 70450; 72125